=== PATIENT | female | born 2005 | race Caucasian/White ===

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

== ENCOUNTER 2023-03-30 05:51 | Emergency (ER) | payer BC, SELFPAY ==
[2023-03-30 05:51] VITALS: BP 141/83; PULSE 91; RESP 18; TEMP 35.8; O2SAT 97; BMI 42.1
[2023-03-30 06:24] LABS: Absolute Lymphocyte Count 3.92 X10^3/uL (0.83-4.51); Absolute Neutrophil Count 11.3 X10^3/uL (2.0-7.7); Basophil% 0.6 % (0-1); Eosinophil# 0.36 X10^3/uL; Eosinophils% 2.1 % (0-5); Hematocrit 41.5 % (37-47); Hemoglobin 13.5 g/dL (12.0-15.0); Lymphocyte # 3.92 X10^3/ul (0.83-4.51); Lymphocyte % 23.1 % (19-41); Mean Corp Hgb Conc 32.5 g/dL (32-36); Mean Corpuscular Hgb 28.5 pg (27.0-32.0); Mean Corpuscular Volume 87.7 fL (81-99); Mean Platelet Vol. 9.4 fl (6.2-12.0); Monocyte# 1.23 X10^3/uL; Monocyte% 7.2 % (0-10); NRBC Flagged by Analyzer 0 % (0-5); Neutrophil % 66.5 % (47-70); Platelet Count 425 K/mm3 (150-450); RBC Distribution Width CV 12.6 % (11.6-14.6); RBC Distribution Width SD 40.8 fl (35.1-43.9); Red Blood Count 4.73 M/mm3 (4.2-5.4)
[2023-03-30 06:25] LABS: Color, Urine Yellow (Yellow); Glucose, Dipstick Normal (Normal); Ketone-Dipstick 5 mg/dl (Negative); Leukocyte Esterase-Dipstick 500 /ul (Negative); Nitrite-Dipstick Negative (Negative); Occult Blood-Urine 25 /ul (Negative); Protein-Dipstick 30 mg/dl (Negative); Specific Gravity, Urine 1.025 (1.002-1.030); Urine Bilirubin Dipstick Negative (Negative); Urine Clarity Sl. Cloudy (Clear); Urine Urobilinogen Normal (Normal)
[2023-03-30 06:31] LABS: Internal QC Validated? YES +Cl - CLEAR BKGD; Pregnancy, Urine Negative Negative
[2023-03-30 06:33] LABS: Bacteria 4+ /hpf (None Seen); Mucous, Urine 1+ /hpf (<or=2+); Red Blood Cells-Urine 0-5 SEEN /hpf (0-5); Squamous Epithelial Cells - UA 10-25 SEEN /hpf (5-10); White Blood Cells 50-100 SEEN /hpf (0-5)
--- NOTE | 2023-03-30 06:44 | CT_ITS ---
EXAM: CT ABDOMEN AND PELVIS WITH INTRAVENOUS CONTRAST CLINICAL INDICATION: RLQ pain, prior cholecystectomy TECHNIQUE: Helically acquired images were obtained of the abdomen and pelvis with intravenous contrast. This CT exam was performed using one or more of the following dose reduction techniques: automated exposure control, adjustment of the mA and/or kV according to patient size, and/or use of iterative reconstruction technique. CONTRAST: IV 100mL [id number] RADIATION DOSE: Total DLP: 1196.91 mGy-cm. COMPARISON: Previous CT of 09/20/2021. FINDINGS: LOWER THORAX: Visualized lung bases are clear. No coronary artery calcification is visualized. No significant pericardial effusion. ABDOMEN: LIVER: Liver demonstrates mild fatty infiltration. Right hepatic lobe measures 18.7 cm in cephalocaudal dimension. GALLBLADDER AND BILE DUCTS: Previous cholecystectomy. No biliary ductal dilatation or calcified common duct stone. PANCREAS: Unremarkable. No focal cystic or solid mass. SPLEEN: Upper normal-sized spleen. ADRENALS: Unremarkable. No nodules. KIDNEYS AND URETERS: Lobulated renal cortical margins again noted. No renal or obstructing ureteral stones. No findings of acute pyelonephritis. STOMACH AND BOWEL: Stomach is decompressed. No periduodenal inflammatory changes or distended small bowel loops. No findings of diverticulitis or colitis. PELVIS: APPENDIX: Retrocecal. No evidence of acute appendicitis. BLADDER: Partially distended urinary bladder shows a mildly thickened wall. REPRODUCTIVE: Uterus remains normal in size. Within the right adnexal region is a 4.6 cm rounded thin-walled unilocular hypoattenuating lesion which shows CT attenuation of 25 in its dependent portion and CT attenuation of 5 within its nondependent portion, indicating blood layering within a hemorrhagic cyst. Normal left ovary. ABDOMEN and PELVIS: INTRAPERITONEAL SPACE: Small amount of low-density free fluid in the dependent portion of the pelvis. No active contrast extravasation. No adnexal fat stranding. No free air. BONES/JOINTS: Chronic pars defects again noted at L5, with slight stable anterolisthesis of L5 on S1; stable asymmetric narrowing of the inferior left L5/S1 neural foramen are broad-based foraminal disc protrusion. No suspicious lytic or blastic abnormality. SOFT TISSUES: Unremarkable. No discrete abdominal or pelvic wall hernia. VASCULATURE: Normal caliber abdominal aorta. LYMPH NODES: Stable normal sized mesenteric lymph nodes. No enlarged lymph nodes. CT/Abdomen/Pelvis W IV Cont ONLY IMPRESSION: 1. Normal appendix. No CT findings of acute appendicitis. 2. 4.6 cm minimally hemorrhagic right ovarian cyst with a small amount of associated free fluid within the pelvis, consistent with leakage from the cyst. 3. Mild thickening of the urinary bladder wall due to limited distention and/or cystitis. 4. Mildly enlarged and fatty liver. 5. Previous cholecystectomy. Electronically Signed: Francisco Butts MD at 7:22 EDT ,
--- NOTE | 2023-03-30 06:46 | EX.ED.DYSGE1 ---
HPI History of Present Illness Chief Complaint: Abd Pain Informant: patient Narrative Narrative: Presents waxing waning lower abdominal pain for the past week. States worsened this evening. Reports last menstrual period was earlier this month she had abnormal bleeding a week ago also when symptoms started. 2 days ago bleeding stopped and reported noting clots. She previous had Nexplanon removed 2020. She has been sexually active since January. Denies any urinary symptoms of dysuria or frequency. Denies any blood thinners. History of cholecystectomy in the past. Denies any allergies. Prior similar symptoms: No PFSH PFSH Home Medications ibuprofen 600 mg tablet 600 mg PO Q6H PRN PRN pain #20 TABLETS 03/30/23 [Rx Last Taken Unknown] ondansetron 4 mg disintegrating tablet 4 mg PO Q8H PRN PRN Nausea #10 tabs 03/30/23 [Rx Last Taken Unknown] Allergy/AdvReac Type Severity Reaction Status Date / Time No Known Allergies Allergy Verified 03/30/23 05:55 Surgical History History of cholecystectomy Social History Smoking Status: Never smoker ROS ROS ED Constitutional Constitutional ED: Denies chills, fever(s) or sweats Eyes Eyes: Denies change in vision ENT ENT ED: Denies dysphagia or sore throat Cardiovascular Cardiovascular: Denies chest pain, leg edema, palpitations or racing heartbeat Respiratory/Chest Respiratory/Chest: Denies cough, dyspnea or dyspnea on exertion Gastrointestinal Gastrointestinal: Reports abdominal pain; Denies diarrhea, nausea or vomiting Genitourinary Genitourinary ED: Reports other Details: Vaginal bleeding ; Denies dysuria, hematuria or urinary frequency Musculoskeletal Musculoskeletal: Denies back pain, extremity pain or neck pain Integumentary Denies rash or wounds Neurologic Neurologic: Denies headache(s), paresthesias or weakness EXAM Physical Exam Const Vital Signs: 03/30/23 05:51 Temperature 96.4 F L Temperature Source Temporal Pulse Rate 91 Respiratory Rate 18 Blood Pressure 141/83 H Blood Pressure Mean 102 Pulse Ox 97 Oxygen Delivery Method Room Air Positive well nourished and well developed General Appearance ED: well developed and NAD HEENT Reports moist mucous membranes normocephalic and atraumatic Eyes PERRL, EOMs intact bilaterally and conjunctivae normal General Eye ED: Yes normal appearance of both eyes Neck no lymphadenopathy and supple General: Negative for tenderness Chest Wall Chest: Negative for tenderness Resp normal respiratory effort and normal air movement Effort and Inspection: symmetric chest movement; Negative for respiratory distress Cardio regular rate, regular rhythm and no murmurs Peripheral Pulses: pulses 2+ throughout GI normal to inspection, nondistended, normoactive bowel sounds GI Narrative: Tenderness abdomen lower quadrants right greater than left. Palpation: Negative for guarding or rebound tenderness present Narrative: Pelvic exam with nursing present. Noted some excoriation right lateral lower pelvis there is no ulcerations. No external lesions. Speculum examination there is no cervical ulcers, there was no residual blood, there is no active bleeding. Back/Spine no CVA tenderness and no thoracic nor lumbar tenderness Extremity normal to inspection General Extremety ED: Negative for edema or tenderness General Extremity: Negative for edema Neuro oriented x3 and no sensory deficits noted Sensorium / Orientation: awake and alert Skin no rashes or lesions noted and no wounds MDM MDM MDM Narrative Medical decision making narrative: Interventions / MDM: Differential diagnosis: Dysfunctional uterine bleeding, ovarian cyst, appendicitis Diagnosis considered but do not suspect: N/A My EKG interpretation: N/A Imaging independently reviewed and interpreted by myself: CT abdomen pelvis IV contrast: Normal appendix, right ovarian cyst 4.6 cm concerning for hemorrhagic cyst per radiology. External documents reviewed: N/A Test considered but not ordered:N/A ED course: Patient initially reporting increasing vaginal bleeding lower abdominal pain. Laboratory studies were obtained with urine and test. Urine noted leukocytes white cells however also noted epithelials. Urine culture sent. Hold off antibiotics at this time as she is asymptomatic. Her white count did return 17 in her hemoglobin 13.5. Pelvic exam did not note any bleeding from any residual blood. Is more tender in the right lower quadrant/pelvic region. Due to leukocytosis will obtain a CT scan abdomen pelvis rule out appendicitis. Re-evaluation: 0700: CT scan normal appendix noted concerns for hemorrhagic cyst of 4.6 cm. Patient more comfortable sitting up. The size of the cyst, obtain ultrasound for further evaluation. She is not hypotensive, hemoglobin 13.5. Disposition discussed with patient/family/significant other: Patient Case discussed with consulting clinician: N/A Lab Data Attestation: I reviewed the patient's lab results. Labs: Laboratory Results - last 24 hr 03/30/23 03/30/23 03/30/23 06:14 06:14 06:14 WBC 17.0 H RBC 4.73 Hgb 13.5 Hct 41.5 MCV 87.7 MCH 28.5 MCHC 32.5 RDW Std Deviation 40.8 RDW Coeff of Beata 12.6 Plt Count 425 MPV 9.4 Immature Gran % (Auto) 0.500 Neut % (Auto) 66.5 Lymph % (Auto) 23.1 [place] % (Auto) 7.2 Eos % (Auto) 2.1 Baso % (Auto) 0.6 Absolute Neuts (auto) 11.3 H Absolute Lymphs (auto) 3.92 Nucleated RBC % 0 Sodium 141 Potassium 3.6 Chloride 109 H Carbon Dioxide 26.0 Anion Gap 6 BUN 12 Creatinine 0.68 Estim Creat Clear Calc 109.17 Est GFR (MDRD) Af Amer 142 Est GFR (MDRD) Non-Af 117 BUN/Creatinine Ratio 17.7 Glucose 107 H Calcium 8.9 Total Bilirubin Direct Bilirubin AST ALT Alkaline Phosphatase Total Protein Albumin Globulin Lipase Urine Color Yellow Urine Clarity Sl. Cloudy Urine pH 6.0 Ur Specific [place] 1.025 Urine Protein 30 H Urine Glucose (UA) Normal Urine Ketones 5 H Urine Occult Blood 25 H Urine Nitrite Negative Urine Bilirubin Negative Urine Urobilinogen Normal Ur Leukocyte Esterase 500 H Urine RBC 0-5 SEEN Urine WBC 50-100 SEEN Ur Squamous Epith Cells 10-25 SEEN Urine Bacteria 4+ Urine Mucus 1+ Urine Test Negative 03/30/23 03/30/23 06:14 06:14 WBC RBC Hgb Hct MCV MCH MCHC RDW Std Deviation RDW Coeff of Beata Plt Count MPV Immature Gran % (Auto) Neut % (Auto) Lymph % (Auto) [place] % (Auto) Eos % (Auto) Baso % (Auto) Absolute Neuts (auto) Absolute Lymphs (auto) Nucleated RBC % Sodium Potassium Chloride Carbon Dioxide Anion Gap BUN Creatinine Estim Creat Clear Calc Est GFR (MDRD) Af Amer Est GFR (MDRD) Non-Af BUN/Creatinine Ratio Glucose Calcium Total Bilirubin 0.40 Direct Bilirubin 0.13 AST 27 ALT 52 Alkaline Phosphatase 53 Total Protein 7.7 Albumin 3.7 Globulin 4.0 Lipase 19 Urine Color Urine Clarity Urine pH Ur Specific [place] Urine Protein Urine Glucose (UA) Urine Ketones Urine Occult Blood Urine Nitrite Urine Bilirubin Urine Urobilinogen Ur Leukocyte Esterase Urine RBC Urine WBC Ur Squamous Epith Cells Urine Bacteria Urine Mucus Urine Test Radiography Diagnostic Testing: Clinical Impression(s) from Imaging Studies Abdomen/Pelvis CT 03/30/23 06:44 IMPRESSION: 1. Normal appendix. No CT findings of acute appendicitis. 2. 4.6 cm minimally hemorrhagic right ovarian cyst with a small amount of associated free fluid within the pelvis, consistent with leakage from the cyst. 3. Mild thickening of the urinary bladder wall due to limited distention and/or cystitis. 4. Mildly enlarged and fatty liver. 5. Previous cholecystectomy. Electronically Signed: Francisco Butts MD at 7:22 EDT , Discharge Plan Triage Chief Complaint: Abd Pain ED Provider: Benjie Howell Dx/Rx/DC Orders Clinical Impression: Hemorrhagic cyst of right ovary, Pelvic pain, Nausea Instructions: ED Ovarian Cyst Prescriptions: New ibuprofen 600 mg tablet 600 mg PO Q6H PRN PRN (Reason: pain) Qty: 20 0RF ondansetron [ondansetron] 4 mg tablet,disintegrating 4 mg PO Q8H PRN PRN (Reason: Nausea) Qty: 10 0RF Primary Care Provider: Bradley Posada Referrals: Valentina Sales DO [Med Staff - Active Staff] - 3-5 Days Bradley Posada MD [Primary Care Provider] - Activity Restrictions/Additional Instructions: CT scan abdomen pelvis normal appendix notes a 4.6 cm hemorrhagic cyst. Ultrasound obtained.
[2023-03-30 06:48] LABS: Anion Gap 6 (5-15); BUN 12 mg/dL (7-18); BUN/Creat Ratio 17.7 RATIO (10-20); Calcium,Total 8.9 mg/dL (8.5-10.1); Chloride 109 mmol/L (98-107); Creatinine, Serum 0.68 mg/dL (0.55-1.02); EST Glomerular Filtration Rate 117 mL/min (>60); Est Glom Filt Rate - Afr Amer 142 mL/min (>60); Estimated Creatinine Clearance 109.17 ml/min; Glucose 107 mg/dL (74-106); Potassium 3.6 mmol/L (3.5-5.1); Sodium Level 141 mmol/L (136-145)
[2023-03-30 06:51] LABS: Lipase 19 U/L (13-75)
[2023-03-30] MEDS: Ondansetron 4 MG/2 ML Vial IV (06:52)
[2023-03-30] MEDS: 0.9% Normal Saline 1,000 ML 1000 ML IV (06:52)
[2023-03-30 06:57] LABS: AST(SGOT) 27 U/L (15-37); Alanine Aminotransfer ALT/SGPT 52 U/L (13-56); Albumin, Serum 3.7 g/dL (3.2-5.0); Alkaline Phosphatase 53 U/L (45-117); Bilirubin, Direct 0.13 mg/dL (0.00-0.30); Protein, Total 7.7 g/dL (6.4-8.2)
--- NOTE | 2023-03-30 07:28 | US_ITS ---
HISTORY: right pelvic pain -- 4.6cm cyst on CT. TECHNIQUE: Transvaginal pelvic ultrasound was performed with joyce scale , spectral Doppler, and color Doppler evaluation. 97 images. COMPARISON: CT same day. FINDINGS: UTERUS: 8.3 x 3.6 x 4.6 cm. Anteverted. ENDOMETRIAL THICKNESS: 5 mm. RIGHT OVARY: 4.2 x 6.1 x 5.7 cm. Vascular flow demonstrated. 3.9 x 5.1 x 4.4 cm unilocular appearing cyst. LEFT OVARY: 2.2 x 2.9 x 1.7 cm. Vascular flow demonstrated. No adnexal masses FREE FLUID: Mild. US/Transvaginal Non- IMPRESSION: 5.1 cm right ovarian cyst with mild free fluid in the pelvis. Consider 2-6 month follow-up. Electronically Signed: Jacinda Little MD at 8:24 EDT ,
[2023-03-30 07:51] VITALS: RESP 16
== END 2023-03-30 09:01 | disposition home or self-care (01) ==
PROVIDERS: Emergency Provider Emergency Medicine; PCP Pediatrics; Visit Provider Emergency Medicine
DX: N83.201 Unspecified ovarian cyst, right side (principal); R11.0 Nausea; Z90.49 Acquired absence of other specified parts of digestive tract; R10.2 Pelvic and perineal pain
CPT/HCPCS: 74177; 76830; 80048; 80076; 81001; 81025; 83690; 85025; 87086; 87088; 93976; 96361; 96374; 99282; J7030; Q9967; J2405

== ENCOUNTER 2023-12-28 20:48 | Emergency (ER) | payer BC, MEDICAID, SELFPAY ==
[2023-12-28 20:50] VITALS: BP 155/92; PULSE 86; RESP 18; TEMP 36.4; O2SAT 97; BMI 43.4
--- NOTE | 2023-12-28 21:01 | US_ITS ---
INDICATION: pelvic pain -- can you put in for doppler given hx of cyst EXAMINATION: Ultrasound US OB Transvaginal TECHNIQUE: Transvaginal pelvic ultrasound was performed. Grayscale, spectral waveform, and color flow Doppler evaluation of the adnexa. COMPARISON: None. LMP: [11/18/2023 correlating with 5 weeks 5 days gestation estimated delivery date August 24, 2024 FINDINGS: UTERUS: Anteverted 9.8 x 5.4 x 4.6 cm with normal myometrium. Cervix long and closed. . RIGHT OVARY: 6.1 x 5.3 x 5.8 cm with unilocular 5.5 cm cyst. Preserved surrounding ovarian parenchymal Doppler vascular flow.. . LEFT OVARY: 1.5 x 4.5 x 2.7 cm. Normal small follicles and preserved Doppler vascular flow. FREE FLUID: Small volume anechoic free fluid in the cul-de-sac.. INTRAUTERINE GESTATIONAL SAC(s) (size/shape): Single gestational sac at the uterine fundus with normal shape.. YOLK SAC: Single normal 2 mm yolk sac POLE: Not seen ESTIMATED GESTATION AGE: Mean sac diameter 0.53 cm correlating with 5 weeks 2 days gestation and estimated delivery date August 27, 2024. HEART MOTION: NA PLACENTA: Not visualized due to age. SUBCHORIONIC HEMORRHAGE: None. AMNIOTIC FLUID: Qualitatively normal. US/Transvaginal w/Preg US IMPRESSION: Single intrauterine with normal yolk sac. pole not yet seen compatible with early gestational age. Recommend repeat ultrasound in one to 2 weeks. Right ovarian 5.5 cm simple physiologic cyst with preserved ovarian Doppler vascular flow. Recommend attention to right ovary on ultrasound follow-up recommended above. Normal left ovary. Small volume likely physiologic free fluid in the pelvis. Electronically Signed: Wayne Rowley MD at 22:31 EST ,
--- NOTE | 2023-12-28 21:04 | ED.VIS.FEGU ---
HPI <BO Lee - Last Filed: 12/28/23 21:16> HPI - Female History of Present Illness Chief Complaint: Vag Bleeding Narrative Narrative: Patient presenting today due to concerns for vaginal spotting that occurred 2 days ago. She reports that she is 9 days late on her menstrual period. Today, she took 2 at home test that came back positive. She reports that she has had intermittent cramping lower abdominal pain today. She does have intermittent nausea. She is G2, P1. She denies any fevers or chills. PFSH <BO Lee - Last Filed: 12/28/23 21:16> PFSH Home Medications NK 12/28/23 [History Last Taken Unknown] Allergy/AdvReac Type Severity Reaction Status Date / Time No Known Allergies Allergy Verified 12/28/23 20:53 Surgical History History of cholecystectomy Social History Smoking Status: Never smoker ROS <BO Lee - Last Filed: 12/28/23 21:16> ROS ED Constitutional Constitutional ED: Denies chills or fever(s) Cardiovascular Cardiovascular: Denies chest pain Respiratory/Chest Respiratory/Chest: Denies cough or dyspnea Gastrointestinal Gastrointestinal: Reports abdominal pain and nausea; Denies vomiting Genitourinary Genitourinary ED: Denies dysuria, hematuria or urinary urgency Musculoskeletal Musculoskeletal: Denies arthralgias or myalgias Integumentary Denies rash Neurologic Neurologic: Denies weakness EXAM <BO Lee - Last Filed: 12/28/23 21:16> Physical Exam Const Vital Signs: 12/28/23 20:50 Temperature 97.6 F L Temperature Source Temporal Pulse Rate 86 Respiratory Rate 18 Blood Pressure 155/92 H Blood Pressure Mean 113 Pulse Ox 97 Oxygen Delivery Method Room Air Positive well nourished, well developed and no apparent distress General Appearance ED: well developed HEENT Reports normocephalic and head/scalp atraumatic Mouth ED: Yes moist mucous membranes normal Eyes PERRL and EOMs intact bilaterally Neck full ROM and supple Chest Wall inspection of chest normal Resp normal respiratory effort and clear to auscultation bilaterally Cardio regular rate and regular rhythm GI soft to palpation, non-distended and no masses GI Narrative: Diffuse tenderness across patient's lower abdomen/pelvis, no rigidity, guarding, or peritoneal signs. Back/Spine normal ROM and normal to inspection Extremity normal to inspection and full ROM Neuro oriented x3, CN's II-XII intact bilaterally, moves all extremities, no focal motor deficits and no sensory deficits noted Sensorium / Orientation: awake and alert Psych mental status grossly normal and thought process normal Skin no rashes or lesions noted and no wounds <Dr. Lukas Peña MD - Last Filed: 12/28/23 22:37> Physical Exam Const Vital Signs: 12/28/23 20:50 Temperature 97.6 F L Temperature Source Temporal Pulse Rate 86 Respiratory Rate 18 Blood Pressure 155/92 H Blood Pressure Mean 113 Pulse Ox 97 Oxygen Delivery Method Room Air MDM <BO Lee - Last Filed: 12/28/23 21:16> [facility] MDM Narrative Medical decision making narrative: Patient is nontoxic-appearing and in no acute distress, she is presenting due to lower abdominal/pelvic cramping that started today and vaginal spotting that started 2 days ago. She has not had any bleeding since. She did have 2 positive test today. She is . Labs will be obtained to assess serum hCG quant. She has a A+ blood type. Transvaginal ultrasound will be obtained to rule out miscarriage/ectopic . Lab Data Labs: Laboratory Results - last 24 hr 12/28/23 21:13 HCG, Quant 1460 H Radiography Diagnostic Testing: Clinical Impression(s) from Imaging Studies Obstetrics Ultrasound 12/28/23 21:01 IMPRESSION: Single intrauterine with normal yolk sac. pole not yet seen compatible with early gestational age. Recommend repeat ultrasound in one to 2 weeks. Right ovarian 5.5 cm simple physiologic cyst with preserved ovarian Doppler vascular flow. Recommend attention to right ovary on ultrasound follow-up recommended above. Normal left ovary. Small volume likely physiologic free fluid in the pelvis. Electronically Signed: Wayne Rowley MD at 22:31 EST Reading Location ID and State: [facility] [place] / [place] Tel , Service support , <Dr. Lukas Peña MD - Last Filed: 12/28/23 22:37> [facility] Narrative Medical decision making narrative: Patient is nontoxic-appearing and in no acute distress, she is presenting due to lower abdominal/pelvic cramping that started today and vaginal spotting that started 2 days ago. She has not had any bleeding since. She did have 2 positive test today. She is . Labs will be obtained to assess serum hCG quant. She has a A+ blood type. Transvaginal ultrasound will be obtained to rule out miscarriage/ectopic . I have personally performed a face to face assessment of the patient and have reviewed the JOSH Note. I performed a substantive portion of the visit including all aspects of the following. My ardon findings include: History is remarkable for spotting 2 days ago. Patient has a positive blood. This is her second . Patient had a positive test at home. She has a known right ovarian cyst. Ultrasound was performed March 2023 and cyst measured 5.1 cm. She is complaining of left sided pain. He has not bled since 2 days ago. She is complaining of pain similar to menstrual cramps. She denies dysuria, hematuria. She does endorse frequency. She denies vomiting or diarrhea. She denies orthostatic symptoms. She denies pain referred to her left or right scapula. Exam is unremarkable. Patient is no distress. Blood pressure is elevated. Lungs are clear to auscultation. Heart is regular. Rate is normal. There is no murmur, gallop or rub. Abdomen is remarkable for right inguinal discomfort. She has more discomfort on the left inguinal area. There is mild suprapubic discomfort. Medical Decision Making patient's blood type is known will obtain quantitative serum hCG and ultrasound to evaluate for ectopic , demise, ovarian torsion Other additions or changes: [None] Lab Data Labs: Laboratory Results - last 24 hr 12/28/23 21:13 HCG, Quant 1460 H Radiography Diagnostic Testing: Clinical Impression(s) from Imaging Studies Obstetrics Ultrasound 12/28/23 21:01 IMPRESSION: Single intrauterine with normal yolk sac. pole not yet seen compatible with early gestational age. Recommend repeat ultrasound in one to 2 weeks. Right ovarian 5.5 cm simple physiologic cyst with preserved ovarian Doppler vascular flow. Recommend attention to right ovary on ultrasound follow-up recommended above. Normal left ovary. Small volume likely physiologic free fluid in the pelvis. Electronically Signed: Wayne Rowley MD at 22:31 EST , Radiology report was read. Treatment and Re-Evaluation Narrative: Patient was informed of her blood work and ultrasound results. She states was a patient of Dr. Brown's. Franc Brown delivered her first child. She would like to follow-up with her. Discharge Plan Triage Chief Complaint: Vag Bleeding ED Midlevel Provider: Jen Pa ED Provider: Lukas Peña Dx/Rx/DC Orders Clinical Impression: First trimester bleeding, Cyst of right ovary Instructions: Ovarian Cysts, Miscarriage Threatened Prescriptions: No Action NK Primary Care Provider: Bradley Posada Referrals: Valentina Sales DO [Med Staff - Active Staff] - 1 Week Bradley Posada MD [Primary Care Provider] - Disposition Disposition: Home, Self Care
--- OUTSIDE RECORDS SUMMARY | 2023-12-28 21:13 | XMS RPT_ITS | CCD ---
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 DUSTY Taylor Primary Care Unavail able DUSTY GALEANO Primary Care Unavailable REFERRED, SELF Referring Unavailable ALYSSA PAULINO Attending Unavailable Medications Current Medications Medication Drug Class(es) Dates Sig (Normalized) Sig (Original) etonogestrel 68 mg drug implant (1 source) Progestin Start: 11-05-2018 inject 1 dose by subcutaneous injection once Nexplanon 68 mg subcutaneous implant Dose : 68 mg = 1 EA, Subcutaneous, Once, 0 Refill(s) Start Date: 11/05/18 Status: Ordered metoclopramide 5 mg oral tablet (1 source) Dopamine-2 Receptor Antagonist Start: 10-25-2022 End: 11-08-2022 Reglan 5 mg oral tablet Dose : 5 mg = 1 tab(s), Oral, QID, X 14 day(s), # 56 tab(s), 0 Refill(s), 11/08/22 20:52:00 EST Start Date: 10/25/22 Stop Date: 11/08/22 Status: Ordered promethazine hydrochloride 25 mg oral tablet (1 source) Phenothiazine Start: 10-09-2019 promethazine 25 mg oral tablet Dose : 25 mg = 1 tab(s), Oral, q4h, # 12 tab(s), 0 Refill(s), Vertigo Start Date: 10/09/19 Status: Ordered SUMAtriptan 50 mg oral tablet (1 source) Serotonin-1b and Serotonin-1d Receptor Agonist Start: 10-09-2019 SUMAtriptan 50 mg oral tablet Dose : 50 mg = 1 tab(s), take 1 tablet by mouth if needed AT ONSET OF HEADACHE may repeat in 2 hours if needed Start Date: 10/09/19 Status: Ordered Completed/Discontinued Medications Medication Drug Class(es) Dates Sig (Normalized) Sig (Original) ondansetron 4 mg oral tablet (1 source) Serotonin-3 Receptor Antagonist Start: 11-05-2018 End: 11-10-2018 Zofran 4 mg oral tablet Dose : 4 mg = 1 tab(s), Oral, q8h, # 15 tab(s), 0 Refill(s) Start Date: 11/05/18 Stop Date: 11/10/18 Status: Ordered Problems Active Problems Problem Classification Problem Date Documented Da te Episodic/Chronic Other gastrointestinal disorders (1 source) Disorder of intestine; Translations: [Other specified diseases of intestine] Onset: 10-25-2022 Episodic Past or Other Problems Problem Classification Problem Date Documented Da te Episodic/Chronic Viral infection (1 source) Disease caused by 2019-nCoV; Translations: [COVID-19] Onset: 10-25-2022 Results Test Name Value Interpretation Reference Range Facil ity Vital Signs Date Time Vital Sign Value Performing Clinician Faci lity 10-25-2022 21:01-0500 Diastolic Blood Pressure Non-Invasive 75 1 CLARE LIZ MD [facility] 10-25-2022 21:01-0500 Heart rate 85 /min CLARE LIZ MD [facility] 10-25-2022 21:01-0500 Respiratory rate 18 /min CLARE LIZ MD [facility] 10-25-2022 21:01-0500 Systolic Blood Pressure Non-Invasive 127 1 CLARE LIZ MD [facility] 10-25-2022 18:10-0500 Diastolic Blood Pressure Non-Invasive 68 1 CLARE LIZ MD [facility] 10-25-2022 18:10-0500 Heart rate 95 /min CLARE LIZ MD [facility] 10-25-2022 18:10-0500 Respiratory rate 11 /min CLARE LIZ MD [facility] 10-25-2022 18:10-0500 Systolic Blood Pressure Non-Invasive 140 1 CLARE LIZ MD [facility] 10-25-2022 16:12-0500 Diastolic Blood Pressure Non-Invasive 75 1 CLARE LIZ MD [facility] 10-25-2022 16:12-0500 Heart rate 79 /min CLARE LIZ MD [facility] 10-25-2022 16:12-0500 Respiratory rate 12 /min CLARE LIZ MD [facility] 10-25-2022 16:12-0500 Systolic Blood Pressure Non-Invasive 127 1 CLARE LIZ MD [facility] 10-25-2022 14:48-0500 Blood Pressure Location CLARE LIZ MD [facility] 10-25-2022 14:48-0500 Blood Pressure Method CLARE LIZ MD [facility] 10-25-2022 14:48-0500 Body temperature 96.8 [degF] CLARE LIZ MD [facility] Encounters Encounter Date Encounter Type Care Provider Facility Start: 11-09-2023 End: 11-09-2023 ambulatory [facility] Start: 10-25-2022 End: 10-25-2022 Emergency department patient visit CLARE LIZ MD Facility:B Start: 10-25-2022 End: 10-25-2022 Emergency department patient visit CLARE LIZ MD [facility] Start: 03-14-2018 End: 03-15-2018 Ambulatory [facility] Procedures Date Procedure Procedure Detail Performing Clinician Cholecystectomy CLARE Stokes MD Payers Date Payer Category Payer Unknown [id number] 2003 Unknown [id number] 2003 Unknown [id number] Unknown [id number] Social History Date Type Detail Facility Start: 10-09-2019 Tobacco smoking status Never s moked tobacco (finding) [facility] Sex Assigned At Sex [facility] Functional Status Date Assessment Result Facility 10-25-2022 Functional Status Standard Safet y Call device within reach, Bed in low position, Wheels locked, Safety level maintained [facility] 10-25-2022 Functional Status [facility] Mental Status Date Assessment Result [facility] 10-25-2022 Mental Status Orientation Oriented x 4 [facility] Discharge instructions 10-25-2022 Note Date & Type Note Facility 10-25-2022 Hospital Discharg e instructions Patient Education 10/25/2022 20:52:41 Anatomy of the Digestive System Anatomy of the Digestive System Food gives the body the energy needed for life. The digestive system breaks food down into basic nutrients that can be used by the body. The digestive tract is a long, muscular tube that extends from the mouth through the stomach and intestines to the anus. As food moves along the digestive tract, it is digested. This means it is changed into substances that can be absorbed into the bloodstream. Certain organs (such as the liver, gallbladder, and pancreas) help with this digestion. Parts of food that can't be digested are turned into stool. This is waste material that is passed out of the body. Digestive system The digestive system is made up of the following: The mouth. Takes in food, breaks it into pieces, and begins the digestion process. The esophagus. Moves food from the mouth to the stomach. Thestomach. Breaks food down into a liquid mixture. Theliver. Makes bile that helps digest fat. The gallbladder. Stores bile. Thepancreas. Makes enzymes that help in digestion. Thesmall intestine. Digests food further and absorbs nutrients. What is left is passed on to the colon as liquid waste. The large intestine (colon). Absorbs water, salt, and minerals from the waste, forming a solid stool. The rectum. Stores stool until a bowel movement happens. Theanus. The opening where stool leaves the body. [id number] [place] [address]. All rights reserved. This information is not intended as a substitute for professional medical care. Always follow your healthcare professional's instructions. Follow Up Care 10/25/2022 14:26:13 With:DUSTY GALEANO MD Address: [address] [place] [address] [address] [place] [address]- When:2-4 days [facility] Clinical Note 10-25-2022 Note Date & Type Note Facility 10-25-2022 Note Discharge Instructions Thank you for allowing [facility] to assist you with your healthcare needs. The following is important discharge information regarding your hospital visit. Diagnosis from Today's Visit Abdominal pain COVID-19 Epiploic appendagitis Dizziness Urinary Incontinence Vomiting What to Do Next Instructions from Your Care Team No qualifying data available. Post Acute Orders No qualifying data available. You Need to Schedule the Following Appointments Follow Up with DUSTY GALEANO MD When Within 2-4 days [facility] [address] [facility] [address] [place] [address]- Allergies NKA Medications Please ask your primary doctor or pharmacist before taking any other medication not listed, including over the counter drugs, herbal medications, vitamins and or supplements as they may interact with your home medications. What How Much When Why Instructions Last Dose New metoclopramide (Reglan 5 mg oral tablet) 1 tab(s) by mouth Four (4) times a day Duration: 14 Days Printed Prescription Unchanged etonogestrel (Nexplanon 68 mg subcutaneous implant) 1 Each Subcutaneous Once Unchanged ondansetron (Zofran 4 mg oral tablet) 1 tab(s) by mouth Every 8 hours Duration: 5 Days Unchanged promethazine (promethazine 25 mg oral tablet) 1 tab(s) by mouth Every 4 hours Vertigo Unchanged SUMAtriptan (SUMAtriptan 50 mg oral tablet) 1 tab(s) take 1 tablet by mouth if needed AT ONSET OF HEADACHE may repeat in 2 hours if needed Please take this list to your next doctor s visit. Bring all medications you take, including over the counter medications, herbals and other supplements with you to your doctor s visit. Patients and families are reminded to discard old lists and to update any records with all medication providers or retail pharmacies. Education Materials Anatomy of the Digestive System Food gives the body the energy needed for life. The digestive system breaks food down into basic nutrients that can be used by the body. The digestive tract is a long, muscular tube that extends from the mouth through the stomach and intestines to the anus. As food moves along the digestive tract, it is digested. This means it is changed into substances that can be absorbed into the bloodstream. Certain organs (such as the liver, gallbladder, and pancreas) help with this digestion. Parts of food that can't be digested are turned into stool. This is waste material that is passed out of the body. Digestive system The digestive system is made up of the following: The mouth. Takes in food, breaks it into pieces, and begins the digestion process. The esophagus. Moves food from the mouth to the stomach. Thestomach. Breaks food down into a liquid mixture. Theliver. Makes bile that helps digest fat. The gallbladder. Stores bile. Thepancreas. Makes enzymes that help in digestion. Thesmall intestine. Digests food further and absorbs nutrients. What is left is passed on to the colon as liquid waste. The large intestine (colon). Absorbs water, salt, and minerals from the waste, forming a solid stool. The rectum. Stores stool until a bowel movement happens. Theanus. The opening where stool leaves the body. [id number] [employer] [place] [address], [place] [address]. All rights reserved. This information is not intended as a substitute for professional medical care. Always follow your healthcare professional's instructions. Additional Information VACCINATE! IT SAVES LIVES! Members of the community who have not yet received the COVID-19 vaccine and would like to receive it can visit one of [facility] vaccine clinics. There are many vaccine clinic locations within the [facility]. For locations and available times, please visit [email or web address]. It is important to note that some COVID mobile vaccine clinics are held outdoors and may be canceled in rainy or stormy conditions. To learn more about pediatric vaccinations (ages 5-11), we invite you to visit the [facility] webpage. [email or web address] To learn more about the COVID-19 vaccine, we invite you to visit the [facility] website for a list of frequently asked questions. [email or web address] [facility] Patient Portal Access Instructions: Stay connected with your healthcare team and access your personal medical information anytime with the [facility] Patient Portal. If you would like a full copy of your medical records please contact the [facility] Medical Records Department Monday through Monday between 8a.m. and 4:30p.m. Please follow the directions below to access the portal: 1.Access the email account you provided upon registration to the hospital.2.Look for an invitation email from [facility].3.Open the email and access the invitation link: Accept Invitation to [facility]4.Fill in the required donahue to create your account. Sign into [email or web address] with your username and password that you created in the above steps to stay up to date. You can then view a summary of results, a summary of your visits, and the ability to download your summaries to your computer or send the information securely to a physician. Remember that your healthcare information is confidential, so carefully consider who you will allow to register on the [facility] Patient Portal for access to your information. You can also access the [facility] Patient Portal on the [employer] katina. Simply click on Health Records under Health Data and then click on the [email or web address] logo. HOW TO SAFELY DISPOSE OF PRESCRIPTION MEDICATIONS Please use one of the following methods to safely dispose of your unused medications. 1.Use a drug disposal kit: the drug disposal pouch allows you to safely discard your old and unused drugs. Ask your nurse to give you one when you are discharged.2.Visit a local take-back location: Many local pharmacies and police departments have programs that collect old and unwanted prescription drugs. Call your local pharmacy or go to http://[employer].Zoomy/8P0Cy4t to find one close to you.3.Make use of household items: Use cat litter or old coffee grounds to dispose medications if other options are not available. Mix your drugs with these household products, seal them in an airtight container and throw it into the garbage. Call [facility]: [phone] to be sure your drugs can be disposed of in this way. Some medicines may require a different approach.4.Never flush your medications down the toilet. IF YOU HAVE BEEN PRESCRIBED AN OPIOIDS FOR PAIN If you have been prescribed an opioid (such as hydrocodone, oxycodone or morphine), it is critical to understand the possible side effects and risks of opioid pain medications. Even when taken as directed, opioids can have several side effects including: Tolerance, meaning you might need to take more of a medication for the same pain relief. Nausea, vomiting and/or constipation. Sleepiness, dizziness, dry mouth, confusion, depression or itching. Physical dependence, meaning you have withdrawal symptoms when a medication is stopped ? this can develop within a few days. KNOW YOUR RESPONSIBILITIES It is important to know exactly how much and how often to take the opioid pain medications you are prescribed. Never take opioids in higher amounts or more often than prescribed. Do not combine opioids with alcohol or other drugs that cause drowsiness, such as benzodiazepines, also known as benzos, including diazepam and alprazolam, muscle relaxants or sleep aids. Never sell or share prescription opioids. This is illegal. Store opioids in a secure place and out of reach of others (including children, family, friends and visitors). The last page(s) of this document has been signed and retained as a CHART COPY Signatures Patient Education Materials Anatomy of the Digestive System Medication Leaflets My discharge plan and instructions have been reviewed and explained to me and I,MILADYS HEARN M understand my current condition and have read and understand these discharge instructions. I have received a written copy of the plan/instructions. If I have questions, I am aware that I should contact my doctor. 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 Multiplanar reformatted images are provided for review. Automated exposure control, iterative reconstruction, and/or weight based adjustment of the mA/kV was utilized to reduce the radiation dose to as low as reasonably achievable. COMPARISON: None. HISTORY: ORDERING SYSTEM PROVIDED HISTORY: Reason for Exam: pain, N/V FINDINGS: The lung bases are unremarkable. The heart is normal in size. The liver, spleen, adrenal glands, and pancreas are unremarkable. Prior cholecystectomy. The extrahepatic common bile duct measures 0.9 cm. Suspect lobulation of the bilateral kidneys. No obstructive uropathy. The ureters and bladder are unremarkable. Nondilated loops of small bowel. There is a small fat density measuring 2.0 cm with surrounding inflammation at the splenic flexure. A normal appendix is identified. There is a 4.5 cm right adnexal cyst with a mean density of 1 Hounsfield units. No free intraperitoneal fluid or gas. No lymphadenopathy is identified. Nonaneurysmal abdominal aorta. No acute osseous abnormality. Bilateral pars defects which appear chronic are present at L5. IMPRESSION: Findings most consistent with epiploic appendagitis adjacent to the splenic flexure. Prominence of the extrahepatic common bile duct measuring up to 0.9 cm may relate to post cholecystectomy dilatation. Recommend correlation with alkaline phosphatase. 4.5 cm simple right adnexal cyst. No further follow-up imaging is recommended. I have personally reviewed the images of this examination and agree with the resident's findings and interpretation. RECOMMENDATIONS: 4.5 cm right adnexal simple-appearing cyst. No follow-up imaging is recommended. Reference: JACR 2019;17(2):248-254 Interpreted by: Abner Rosa MD Preliminary Report By: Armida Frank Electronically signed By Abner Rosa MD Dictated Date: 10/25/2022 8:24:04 PM Prelim Date: 10/25/2022 8:31:30 PM Sign Date: 10/25/2022 8:41:17 PM Ordering Provider: [facility] Clinical Note 10-25-2022 Note Date & Type Note Facility 10-25-2022 Note ORIGINAL EXAMINATION: CT OF THE ABDOMEN AND PELVIS WITH CONTRAST 10/25/2022 8:06 pm TECHNIQUE: CT of the abdomen and pelvis was performed with the administration of intravenous contrast. Multiplanar reformatted images are provided for review. Automated exposure control, iterative reconstruction, and/or weight based adjustment of the mA/kV was utilized to reduce the radiation dose to as low as reasonably achievable. COMPARISON: None. HISTORY: ORDERING SYSTEM PROVIDED HISTORY: Reason for Exam: pain, N/V FINDINGS: The lung bases are unremarkable. The heart is normal in size. The liver, spleen, adrenal glands, and pancreas are unremarkable. Prior cholecystectomy. The extrahepatic common bile duct measures 0.9 cm. Suspect lobulation of the bilateral kidneys. No obstructive uropathy. The ureters and bladder are unremarkable. Nondilated loops of small bowel. There is a small fat density measuring 2.0 cm with surrounding inflammation at the splenic flexure. A normal appendix is identified. There is a 4.5 cm right adnexal cyst with a mean density of 1 Hounsfield units. No free intraperitoneal fluid or gas. No lymphadenopathy is identified. Nonaneurysmal abdominal aorta. No acute osseous abnormality. Bilateral pars defects which appear chronic are present at L5. IMPRESSION: Findings most consistent with epiploic appendagitis adjacent to the splenic flexure. Prominence of the extrahepatic common bile duct measuring up to 0.9 cm may relate to post cholecystectomy dilatation. Recommend correlation with alkaline phosphatase. 4.5 cm simple right adnexal cyst. No further follow-up imaging is recommended. I have personally reviewed the images of this examination and agree with the resident's findings and interpretation. RECOMMENDATIONS: 4.5 cm right adnexal simple-appearing cyst. No follow-up imaging is recommended. Reference: JACR 2019;17(2):[id number] Interpreted by: Abner Rosa MD Preliminary Report By: Armida Frank Electronically signed By Abner Rosa MD Dictated Date: 10/25/2022 8:24:04 PM Prelim Date: 10/25/2022 8:31:30 PM Sign Date: 10/25/2022 8:41:17 PM Ordering Provider: [facility] SARS-CoV-2 (COVID-19) RNA LILIA+probe Ql (Nph) 10-25-2022 Note Date & Type Note Facility 10-25-2022 SARS-CoV-2 (COVID -19) RNA LILIA+probe Ql (Nph) Positive *ABN* (10/25/22 3:28 PM) AO Auto Urine SS Progress note 11-16-2021 Note Date & Type Note Facility 11-16-2021 Note HNO ID: [id number] Author: Jazmín Sales APRN.[employer] Service: ? Author Type: Nurse Practitioner Type: Progress Notes Filed: 11/16/2021 1:07 PM Note Text: CHIEF COMPLAINT: Patient presents with: bloody stools: Seen at [facility] ER Constipation: about 1-2 times month with pain in rectum and lower abdomen/back Diarrhea: having watery stools 2-3 times daily GERD This consult was requested by Malini La MD for an opinion regarding blood in stool. My final recommendations will be communicated to the requesting health care provider by way of the shared medical record for internal providers or letter via the [employer] for external providers. 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 Herpast medical history complication to anesthesia (vomiting after surgery), and depression. Gall bladder removed who presents for blood in stool HPI: Recent visit to [facility] ED 09/20-for intermittent abdominal pain, nausea and vomiting CT scan showed ovarian cyst 2.5 cm was treated with Zofran, Reglan and Benadryl and GI cocktail. Lab work shows chronically elevated WBC it was reported has been ongoing since 2017 and was started on Prevacid given Zofran prescription and to follow-up with OB, PCP and possibly hematology regarding chronically elevated WBC. The patient reports change in bowel habits starting in Nov of diarrhea and rectal bleeding and abdominal pain in her lower stomach and RLQ. Having a bowel movement reports alternating bowel movements from constipation to watery bowel movements. She reports mostly watery or loose BM daily. She reports she having a BM once in the morning it wakes her up and then will have 2 more BM that dayShe reports she is having burning sensation when she has a BM . She reports stabbing pain that intermittent - and this will take her breath away and will last 3 minutes this just makes her want to throw up. She reports she is having bad acid reflux burning sensation in her throat and chest. At times regurgitation of food and will having belching up rotten eggs at one point. She reports her stomach gets hard. Her symptoms worsen when she lays down and gets nauseated never vomits currently and this will make her dizzy. She reports she does not eat a lot and feeling full fast. She reports she feels nauseated in the morning when she wakes up that she starving. Record Review: [facility] / Outside records reviewed. CT ABD and PEL 09/20/2021 IMPRESSION: Right ovarian 2.3 cm cyst. This is recurrent or increased in size from 2.8 cm February 17, 2020. Ultrasound characterization is recommended. Moderate colonic stool. Well filled bladder. Correlate for ablity to void. Bilateral pars defects L5 with trace grade 1 anterolisthesis of L5 on S1. Uncovering of the posterior superior disc with small disc extrusion. There is mild left neuroforaminal stenosis with disc approaching the exiting L5 nerve root. MRI could further evaluate as clinically indicated. Individualized dose optimization techniques were used for this CT. PAST MEDICAL HISTORY Diagnosis Date - Complication of anesthesia vomiting after surgery - Depression PAST SURGICAL HISTORY Procedure Laterality Date - LAPAROSCOPIC CHOLEYCYSTECTOMY 11/06/2014 Cholecystectomy, lap - NEXPLANON INSERTION 03/27/2017 Allergies: ALLERGIES No Known Allergies Medications: ondansetron orally disintegrating (ZOFRAN ODT) 4 mg disintegrating tablet dissolve 1 tablet ON TONGUE every 8 hours if needed for nausea norgestimate 0.25 mg-ethinyl estradiol 35 mcg (SPRINTEC) 0.25-35 mg-mcg per tablet Take 1 tablet by mouth once daily. pantoprazole DR (PROTONIX) 40 mg tablet Take 1 tablet by mouth once daily. FAMILY HISTORY Problem Relation Age of Onset - Hypertension Father - Hypertension Maternal Grandmother - Breast Cancer Maternal Aunt - Diabetes Paternal Grandfather - Prostate Cancer Paternal Grandfather - Psychiatry Maternal Uncle - Psychiatry Maternal Aunt - Psychiatry Maternal Aunt - Seizures Maternal Aunt Employer And Job Title: No employer specified (student) Years Of Education Completed: 7 years Marital Status: Single Social History Tobacco Use - Smoking status: Never Smoker - Smokeless tobacco: Never Used Vaping Use - Vaping Use: Never used Substance Use Topics - Alcohol use: No - Drug use: No Review of Systems: Review of Systems Constitutional: Positive for appetite change. Gastrointestinal: Positive for abdominal distention, abdominal pain, anal bleeding, blood in stool, constipation, diarrhea, nausea and rectal pain. All other systems reviewed and are negative. Are you taking any blood thinners? No Physical Examination: BP 124/66 Pulse 74 Ht 5' 5.748 (1.67m) Wt 259 lb (117.5kg) SpO2 99% LMP 10/27/2021 BMI 42.12 kg/(m2). Physical Exam Abdominal: Tenderness: There is abdominal tenderness in the right upper quadrant (more content not included)... [facility] Progress note 10-08-2021 Note Date & Type Note Facility 10-08-2021 Note HNO ID: [id number] Author: Malini La MD Service: ? Author Type: Physician Type: Progress Notes Filed: 10/08/2021 1:15 PM Note Text: Miladys Hearn is a 16 year old female who presents for problem visit for c/o nausea and abdominal pain. HPI: 16 YOF had N/V on 09/20 and went to [facility] ED. Given zofran. Had a CT and showed ovarian cyst (2.5cm) so told to follow up here. Gets nausea daily, usually takes zofran daily. Goes from constipation to watery stools. No new medications. States the zofran usually helps the nausea some. No change in diet. Notes she has had some bright red blood w/ stools, both w/ loose and constipation. 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 OB History T1 L1 SAB0 IAB0 Ectopic0 Multiple0 Live Births1 Edge Setter History LMP: 03/14/2018, Having periods Age at Menarche: Age at First : Age at Menopause: Edge Setter History Comments: Sexual Activity: No sexual activity data on record; No partner data on record Contraception: No contraception data on record PAST MEDICAL HISTORY Diagnosis Date - Complication of anesthesia vomiting after surgery - Depression PAST SURGICAL HISTORY Procedure Laterality Date - LAPAROSCOPIC CHOLEYCYSTECTOMY 11/06/2014 Cholecystectomy, lap - NEXPLANON INSERTION 03/27/2017 FAMILY HISTORY Problem Relation Age of Onset - Hypertension Father - Hypertension Maternal Grandmother - Breast Cancer Maternal Aunt - Diabetes Paternal Grandfather - Prostate Cancer Paternal Grandfather - Psychiatry Maternal Uncle - Psychiatry Maternal Aunt - Psychiatry Maternal Aunt - Seizures Maternal Aunt Social History Tobacco Use - Smoking status: Never Smoker - Smokeless tobacco: Never Used Vaping Use - Vaping Use: Never used Substance Use Topics - Alcohol use: No - Drug use: No Current Outpatient Medications Medication Sig - ondansetron orally disintegrating (ZOFRAN ODT) 4 mg disintegrating tablet dissolve 1 tablet ON TONGUE every 8 hours if needed for nausea - norgestimate 0.25 mg-ethinyl estradiol 35 mcg (SPRINTEC) 0.25-35 mg-mcg per tablet Take 1 tablet by mouth once daily. - etonogestrel (NEXPLANON) subdermal implant 68 mg 68 mg by SUBDERMAL route one time only. (Patient not taking: Reported on 10/08/2021 ) No current facility-administered medications for this visit. Allergies As of Date: 10/08/2021 (No Known Allergies) Fully Assessed 10/08/2021 REVIEW OF SYSTEMS Bladder: No dysuria, gross hematuria, urinary frequency, urinary urgency, or incontinence. Allergies and current medication updated:Yes EXAM: LMP 03/14/2018 GENERAL: pleasant, female in no apparent distress Reviewed CT and labs from [facility] from 09/2021 ED visit. ASSESSMENT AND PLAN: contraceptive surveillance, doing well on OCPS, desries to continue w/ this. Small 2.5 cm ovarian follicle, d/w her natural h/o follicles, etiology for cysts and how they cause pain. Her symptoms are not c/w ovarian cyst,. Nausea and hematochezia- Needs GI referal. Medical Decision Making: Problems: Moderate: New problem with uncertain prognosis Data: Unique test result(s) reviewed: 3+ Risk: Moderate: Moderate risk from testing/treatment Medical Decision Making Level: 4 - Moderate Malini La MD [facility] Progress note 01-26-2021 Note Date & Type Note Facility 01-26-2021 Note HNO ID: [id number] Author: Malini La Service: ? Author Type: ? Type: Progress Notes Filed: 01/26/2021 10:36 AM Note Text: Miladys Hearn is a 16 year old female who presents for problem visit for discussion of contraception. HPI: 16 YOF had nexplanon for almost 4 years. Had light bleeding before and was very happy w/ nexplanon. Now more irreg bleedign and cramps. Considering another one but wants to be off it for a few months. PAST MEDICAL HISTORY Diagnosis Date - Complication of anesthesia vomiting after surgery - Depression PAST SURGICAL HISTORY Procedure Laterality Date - LAPAROSCOPIC CHOLEYCYSTECTOMY 2014 Cholecystectomy, lap FAMILY HISTORY Problem Relation Age of Onset - Hypertension Father - Hypertension Maternal Grandmother - Breast Cancer Maternal Aunt - Diabetes Paternal Grandfather - Prostate Cancer Paternal Grandfather - Psychiatry Maternal Uncle - Psychiatry Maternal Aunt - Psychiatry Maternal Aunt - Seizures Maternal Aunt Social History Tobacco Use - Smoking status: Former Smoker Quit date: 05/26/2016 Years since quittin.6 - Smokeless tobacco: Never Used Substance Use Topics - Alcohol use: No - Drug use: No Current Outpatient Medications Medication Sig - etonogestrel (NEXPLANON) subdermal implant 68 mg 68 mg by SUBDERMAL route one time only. - ondansetron (ZOFRAN) 4 mg tablet Take 1 tablet by mouth every 8 hours as needed for Nausea/Vomiting. (Patient not taking: Reported on 01/26/2021 ) - Ukgvcwrb-Le-Rav-Fe-FA ( VITAMIN) tab Take 1 tablet by mouth. (Patient not taking: Reported on 01/26/2021 ) No current facility-administered medications for this visit. Allergies As of Date: 01/26/2021 (No Known Allergies) Fully Assessed 01/26/2021 REVIEW OF SYSTEMS Allergies and current medication updated:Yes EXAM: LMP 04/30/2016 GENERAL: pleasant, female in no apparent distress ASSESSMENT AND PLAN: contraceptive counseling. Desires LARC. Info on Innovera and nexplanon and IUDs reviewed. Considering. Would like pills for 1-2 cyclkes to regulate menses for now. Schedule annual Malini La MD Miladys is a 16 year old who presents for Nexplanon removal for scheduled 3 year removal. 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 Time: 1032 Affirmation of Time Out: YES Sign Out Discussion: Completed Malini aL MD TECHNIQUE: Patient placed in supine position with left arm bent at the elbow and placed over the head. Skin cleansed with betadine. 0.2mL of 1% lidocaine with epi injected subQ along insertion site. Scalpel used to made a 5mm stab incision superficially at distal end of Nexplanon. Device removed under sterile technique with a small hemostat. Sterile pressure dressing applied. AANDP: 16 year old here for Nexplanon removal Nexplanon removed intact without difficulty. Malini La MD [facility] Evaluation + Plan note Note Date & Type Note Facility Evaluation + Plan note No data available for this section [facility] Summary Purpose Family History No Family History Records FoundNo Family History Records FoundNo Family History Records FoundNo Family History Records Found Advance Directives No Advanced Directives Records FoundNo Advanced Directives Records FoundNo Advanced Directives Records FoundNo Advanced Directives Records Found Additional Source Comments INFORMATION SOURCE (unrecogn ized section and content) DATE CREATED AUTHOR AUTHOR'S ORGANIZ ATION 11/23/2021 [facility] DATE CREATED AUTHOR AUTHOR'S ORGANIZ ATION 11/21/2022 [facility] ([place]) DATE CREATED AUTHOR AUTHOR'S ORGANIZ ATION 11/10/2023 [facility] Care Team (unrecognized sect ion and content) Care Team Personnel Name: DUSTY GALEANO MD Member Role: Primary Care Physician Address: Address: [address] [place] [address] [address] Name: CLARE LIZ MD Position: ED Physician Member Role: ED Physician Address: Address: [address] [facility] [address] [address] [place] [address]- [place] Name: SHRUTI LEONE DO Position: Resident Member Role: Resident Address: Address: [address] [facility] [place] [address]- Name: Sandra Hassan RN Position: AO RN Member Role: ED RN Care Team Related Persons Name: BLAIRE HEARN Address: Home [address] [place] [id number] Name: SUSI HEARN Address: Home [address] [address] FOR RECORDS PERTAINING TO PATIENTS WHO ARE OR HAVE BEEN ENROLLED IN A CHEMICAL DEPENDENCY/SUBSTANCEABUSE PROGRAM, SOME INFORMATION MAY BE OMITTED. This clinical summary was aggregated from multiple sources. Caution should be exercised in using it in the provision of clinical care. This summary normalizes information from multiple sources, and as a consequence, information in this document may materially change the coding, format and clinical context of patient data. In addition, data may be omitted in some cases. CLINICAL DECISIONS SHOULD BE BASED ON THE PRIMARY CLINICAL RECORDS. [facility] [employer] [facility] provides no warranty or guarantee of the accuracy or completeness of information in this document.
[2023-12-28 22:01] LABS: hCG Titer Quant., Serum 1460 mIU/mL (1-3)
[2023-12-28 22:49] VITALS: O2SAT 98
[2023-12-28 22:50] VITALS: BP 138/74; PULSE 81; RESP 16; TEMP 36.6; O2SAT 99
== END 2023-12-28 22:51 | disposition home or self-care (01) ==
PROVIDERS: Physician Assistant; Emergency Provider Emergency Medicine; PCP Pediatrics; Visit Provider Emergency Medicine
DX: O20.9 Hemorrhage in early pregnancy, unspecified (principal); O99.891 Other specified diseases and conditions complicating pregnancy; N83.291 Other ovarian cyst, right side; Z3A.00 Weeks of gestation of pregnancy not specified
CPT/HCPCS: 76817; 84702; 99283; A4216

== ENCOUNTER 2024-01-05 08:38 | Emergency (ER) | payer BC, MEDICAID, SELFPAY ==
[2024-01-05 08:39] VITALS: BP 133/75; PULSE 68; RESP 14; TEMP 36.8; O2SAT 98; BMI 41.9
--- NOTE | 2024-01-05 09:03 | EDS_ITS ---
HPI HPI - GI History of Present Illness Chief Complaint: Nausea/Vomiting Informant: patient Nausea/Vomiting/Emesis GI Symptom: Positive for Nausea and Vomiting Onset: Today and Yesterday Severity: Moderate Diarrhea/Melena/Hematochezia GI Symptom: Positive for Diarrhea; Negative for Melena or Hematochezia Onset: Today and Yesterday Stool Quality: Positive for Loose Severity: Mild Associated Symptoms Associated Symptoms: Negative for Dysuria, Frequency, Hematuria or Urgency Narrative Narrative: 19-year-old female G2, P1 Ab0 currently about 7 weeks . [facility] Prior cholecystectomy. States for the last 2 days she has had nausea vomiting and diarrhea. No send of abdominal pain. No dysuria. No fever. Feels dehydrated. 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 Prior similar symptoms: No Recent Illness/Hospitalization: No PFSH PFSH Medical History no medical history no medical history Home Medications ondansetron 4 mg disintegrating tablet 4 mg PO Q8H PRN PRN Nausea #10 tabs 01/05/24 [Rx Last Taken Unknown] ondansetron HCl 4 mg tablet 4 mg PO Q8H PRN nausea and vomiting 01/05/24 [History Last Taken Unknown] Allergy/AdvReac Type Severity Reaction Status Date / Time No Known Allergies Allergy Verified 01/05/24 08:39 Surgical History History of cholecystectomy Social History Smoking Status: Never smoker ROS ROS ED ROS Narrative Nausea, vomiting and diarrhea last 2 days. Review of Systems ROS Unobtainable: Denies due to encephalopathy Constitutional Constitutional ED: Denies chills or fever(s) ENT ENT ED: Denies ear pain Cardiovascular Cardiovascular: Denies chest pain Respiratory/Chest Respiratory/Chest: Denies cough or dyspnea Gastrointestinal Gastrointestinal: Reports diarrhea, nausea and vomiting; Denies abdominal pain, constipation or melena Genitourinary Genitourinary ED: Denies dysuria or hematuria Musculoskeletal Musculoskeletal: Denies arthralgias, back pain, myalgias or neck pain Integumentary Denies abscess or Abrasions Neurologic Neurologic: Denies headache(s) Psychiatric Psychiatric: Denies anxiety or depression Endocrine Endocrinology: Denies polydipsia or polyphagia Hematologic/Lymphatic Hematologic/Lymphatic: Denies easy bleeding, easy bruising or lymphadenopathy Allergic/Immunologic Allergic/Immunologic ED: Denies mouth swelling, tongue swelling or urticaria EXAM Physical Exam Narrative Exam Narrative: 19-year-old female vital signs stable afebrile. H EENT exam unremarkable except mild dry mucous members. Neck nontender no lymphadenopathy. Lungs clear to auscultation bilaterally. Heart regular rhythm rate about 70 no murmur. Chest wall and ribs nontender. Abdomen soft nontender. Nondistended. No obstruction. No hernia or mass. Back nontender. Moving all 4 extremities. Calves are nontender without edema or cords. 5 5 grip assembler strength. Dorsi plantarflexion intact. Neurologically she is awake and alert no focal motor deficits. Const Vital Signs: 01/05/24 08:39 Temperature 98.2 F Temperature Source Temporal Pulse Rate 68 Respiratory Rate 14 Blood Pressure 133/75 H Blood Pressure Mean 94 Pulse Ox 98 Oxygen Delivery Method Room Air Positive well nourished and well developed; Negative for cachectic, contractures or unkempt General Appearance ED: well developed and NAD; Negative for unkempt, cachectic, contractures or pallor Nutritional Appearance: Negative for cachectic HEENT Reports dry mucous membranes; Denies moist mucous membranes normocephalic and atraumatic; Negative for trauma or tenderness Mouth ED: Yes dry mucous membranes Mouth: dry mucous membranes Eyes PERRL and EOMs intact bilaterally General Eye ED: Negative for pale conjunctiva or scleral icterus Neck no lymphadenopathy, supple and no JVD General: Negative for tenderness Carotids: Negative for other Lymph Lymphatic: Negative for other Resp normal respiratory effort and clear to auscultation bilaterally Effort and Inspection: Negative for respiratory distress or retractions Auscultation: Negative for rales, rhonchi or wheezes Cardio regular rhythm, S1 normal heart sound, S2 normal heart sound and no murmurs Rate: Negative for bradycardia or tachycardic Rhythm: Negative for abnormal rhythm GI non-tender, non-distended and no masses Inspection: Negative for abdominal distention Auscultation: normoactive bowel sounds Palpation: soft; Negative for tender, guarding or rebound tenderness present Back/Spine no CVA tenderness General Back: Negative for CVA tenderness Cervical Spine: Negative for cervical spine tenderness Thoracic Spine / Upper Back: Negative for thoracic spinal tenderness Lumbar Spine / Lower Back: Negative for lumbar spinal tenderness Coccyx: Negative for other Extremity full ROM General Extremety ED: Negative for edema or tenderness General Extremity: Negative for edema Neuro CN's II-XII intact bilaterally and moves all extremities Sensorium / Orientation: alert, oriented to person, oriented to place and oriented to time; Negative for orientation impaired, confused, lethargic or stuporous Motor Exam: Negative for strength 5/5 throughout or general weakness Psych mental status grossly normal and thought process normal Appearance: Negative for unkempt Attitude: No agitated Mood & Affect: Negative for depressed, anxious or tearful Skin no wounds General Skin Exam: Negative for jaundice or pallor Lesions: no lesions and No lesion noted Rashes: no rashes Trauma: Negative for abrasion Nails: Negative for discolored MDM MDM MDM Narrative Medical decision making narrative: 19-year-old nausea vomiting and diarrhea at 7 weeks . Clinical looks mildly dehydrated. IV fluids. IV Zofran. She is having no urinary symptoms. I do not think she needs any imaging. Her abdomen is completely nontender. BMP. Reassess. P.o. fluid challenge. Repeat exam at 9:39 AM patient doing well. Abdomen benign. Nausea improved with IV Zofran. She is receiving the IV fluids. She has been able to drink water and have some crackers. She will be discharged home on Zofran. Follow-up with her OB as needed. Return if worse. History & Record Review Discussion w/independent historian: Patient and Family Additional record(s) reviewed:: Prior inpatient record, Prior outpatient record, Prior ED visit and Prior labs Lab Data Attestation: I reviewed the patient's lab results. Lab results narrative: BMP shows no acute abnormality. Gap 5. Normal BUN of 7 creatinine 0.6. Glucose 89. Labs: Laboratory Results - last 24 hr 01/05/24 09:10 Sodium 137 Potassium 3.7 Chloride 109 H Carbon Dioxide 23.0 Anion Gap 5 BUN 7 Creatinine 0.64 Estim Creat Clear Calc 163.23 Est GFR (MDRD) Af Amer 151 Est GFR (MDRD) Non-Af 125 BUN/Creatinine Ratio 11.0 Glucose 89 Calcium 9.3 Discharge Plan Triage Chief Complaint: Nausea/Vomiting ED Provider: Dlae Sesay Dx/Rx/DC Orders Clinical Impression: First trimester , Nausea & vomiting Instructions: ED Vomiting (Adult) Prescriptions: New ondansetron 4 mg tablet,disintegrating 4 mg PO Q8H PRN PRN (Reason: Nausea) Qty: 10 0RF No Action ondansetron HCl 4 mg tablet 4 mg PO Q8H PRN (Reason: nausea and vomiting) Patient Comments: take 1 tablet by mouth every 8 hours if needed for nausea and vomiting Primary Care Provider: Bradley Posada Referrals: Malini La MD [Med Staff - Active Staff] - As Needed Bradley Posada MD [Primary Care Provider] - Activity Restrictions/Additional Instructions: Zofran as needed for nausea. You can either swaddle it dissolve under your tongue. Plenty of fluids and rest. Increase your diet slowly as tolerated. Initially started out with water, Gatorade and 7-Up and increase from there. Follow-up with your OB as needed. Return if worse. Disposition Disposition: Home, Self Care
[2024-01-05] MEDS: Ondansetron 4 MG/2 ML Vial IV ×2 (09:15→10:46)
[2024-01-05] MEDS: 0.9% Normal Saline (1000mL) 1,000 ML 1000 ML IV (09:16)
[2024-01-05 09:28] LABS: Anion Gap 5 (5-15); BUN 7 mg/dL (7-18); Calcium,Total 9.3 mg/dL (8.5-10.1); Chloride 109 mmol/L (98-107); Creatinine, Serum 0.64 mg/dL (0.55-1.02); EST Glomerular Filtration Rate 125 mL/min (>60); Est Glom Filt Rate - Afr Amer 151 mL/min (>60); Estimated Creatinine Clearance 163.23 ml/min; Glucose 89 mg/dL (74-106); Potassium 3.7 mmol/L (3.5-5.1); Sodium Level 137 mmol/L (136-145)
[2024-01-05 10:47] VITALS: BP 123/69; PULSE 87; RESP 16; O2SAT 99
[2024-01-05 12:23] VITALS: BP 106/74; PULSE 78; RESP 169; TEMP 37; O2SAT 98
== END 2024-01-05 12:23 | disposition home or self-care (01) ==
PROVIDERS: Emergency Provider Emergency Medicine; PCP Pediatrics; Visit Provider Emergency Medicine
DX: O21.9 Vomiting of pregnancy, unspecified (principal); Z3A.01 Less than 8 weeks gestation of pregnancy; Z90.49 Acquired absence of other specified parts of digestive tract
CPT/HCPCS: 80048; 96361; 96374; 96376; 99283; A4216; J2405

== ENCOUNTER 2024-01-08 08:52 | Emergency (ER) | payer BC, MEDICAID, SELFPAY ==
[2024-01-08 08:54] VITALS: BP 136/73; PULSE 95; RESP 14; TEMP 36.1; O2SAT 94; BMI 43.0
--- NOTE | 2024-01-08 09:29 | US_ITS ---
HISTORY: viability. LMP 11/18/2023. TECHNIQUE: Transvaginal pelvic ultrasound was performed. 48 images. COMPARISON: 12/28/2023. FINDINGS: UTERUS: 9.7 x 4.9 x 7 cm. RIGHT OVARY: 4.4 x 5.4 x 6.5 cm. 4.5 x 5.2 x 6 cm unilocular cyst, previously 4.8 x 5.1 x 5.5 cm. LEFT OVARY: 2.1 x 2.7 x 3.6 cm. No adnexal masses. FREE FLUID: Trace. INTRAUTERINE GESTATIONAL SAC: Single. Mean sac diameter 1.7 cm corresponding to 6 weeks 4 days. YOLK SAC: 4 mm. POLE: [place]-rump length 6.6 mm corresponding to 6 weeks 5 days. ESTIMATED DELIVERY DATE: 08/28/2024. HEART MOTION: 132 bpm. US/Transvaginal w/Preg US IMPRESSION: Intrauterine with an estimated gestational age of 6 weeks 5 days and heart tones demonstrated. 6 cm simple cyst in the right ovary, previously 5.5 cm. Trace free fluid in the pelvis, decreased from prior. Electronically Signed: Jacinda Little MD at 11:11 EST ,
--- NOTE | 2024-01-08 09:30 | EX.ED.DYSGE1 ---
HPI History of Present Illness Chief Complaint: Nausea/Vomiting Informant: patient Narrative Narrative: 19-year-old female presenting to the emergency room chief complaint of nausea and vomiting. Patient states she is G2, P1 Ab0 at approximately 7 to 8 weeks. She states that her first child was delivered with [place] but they were unable to see her for this and so she has an upcoming appointment with [facility] (Dr. La). She reports that she had some blood work done with them and her hCG level was increasing. Patient states that she had a pelvic ultrasound last month when she first found out she was . She was seen in the emergency department several days ago for nausea vomiting and has been taking Zofran without significant relief. She states that she continues to have vomiting and decreased p.o. intake and was advised to come back to emergency. Per the patient and review of the patient's chart she is a positive blood type. She states that she did have some spotting last month but has not had any vaginal bleeding or discharge since. She notes no upper abdominal pain. She has had prior cholecystectomy. She notes decreased bowel movements secondary to not eating anything . PFSH PFSH Home Medications ondansetron 4 mg disintegrating tablet 4 mg PO Q6H PRN PRN Nausea #20 tabs 01/08/24 [Rx Last Taken Unknown] promethazine 25 mg rectal suppository (Promethegan) 25 mg RECTAL Q6H PRN PRN Nausea ##15 01/08/24 [Rx Last Taken Unknown] Allergy/AdvReac Type Severity Reaction Status Date / Time No Known Allergies Allergy Verified 01/08/24 08:53 Surgical History History of cholecystectomy Social History Smoking Status: Never smoker ROS ROS ED Constitutional Constitutional ED: Denies chills, fever(s) or weight loss Eyes Eyes: Denies change in vision or diplopia ENT ENT ED: Denies ear pain, rhinorrhea or sore throat Cardiovascular Cardiovascular: Denies chest pain, orthopnea, palpitations or racing heartbeat Respiratory/Chest Respiratory/Chest: Denies cough, dyspnea or orthopnea Gastrointestinal Gastrointestinal: Reports nausea and vomiting; Denies abdominal pain or diarrhea Genitourinary Genitourinary ED: Denies dysuria, hematuria or urinary frequency Musculoskeletal Musculoskeletal: Denies arthralgias, back pain or myalgias Integumentary Denies abscess or rash Neurologic Neurologic: Denies headache(s) or weakness Psychiatric Psychiatric: Denies anxiety, depression, suicidal ideation or suicidal thoughts Endocrine Endocrinology: Denies polydipsia, polyphagia or polyuria Allergic/Immunologic Allergic/Immunologic ED: Denies mouth swelling, tongue swelling or urticaria EXAM Physical Exam Const Vital Signs: 01/08/24 08:54 01/08/24 13:45 Temperature 96.9 F L 96.9 F L Temperature Source Temporal Pulse Rate 95 95 Respiratory Rate 14 14 Blood Pressure 136/73 H 136/73 H Blood Pressure Mean 94 94 Pulse Ox 94 94 Oxygen Delivery Method Room Air Positive well nourished, well developed and obese General Appearance ED: well developed Nutritional Appearance: obese HEENT Reports normocephalic, head/scalp atraumatic and moist mucous membranes Eyes PERRL and EOMs intact bilaterally Neck no lymphadenopathy, supple and no JVD Resp normal respiratory effort and clear to auscultation bilaterally Cardio regular rate, regular rhythm and no murmurs GI normal to inspection, nondistended, normoactive bowel sounds and non-tender Palpation: soft Back/Spine no CVA tenderness and normal ROM Extremity normal to inspection General Extremety ED: Negative for edema General Extremity: Negative for edema Neuro oriented x3 and CN's II-XII intact bilaterally Sensorium / Orientation: alert Motor Exam: strength 5/5 throughout Psych mental status grossly normal Mood & Affect: Negative for depressed or tearful Skin no rashes or lesions noted and no wounds MDM MDM MDM Narrative Medical decision making narrative: Pelvic ultrasound demonstrates a single live intrauterine measuring approximately 6 weeks and 5 days. Basic blood work was obtained shows a white count of 15.6. Glucose 92 quantitative hCG 42690. Transaminases slightly elevated with an AST of 39 ALT of 67 rather nonspecific. Urinalysis demonstrates 25-50 white cells 5-10 squamous cells 1+ bacteria positive ketones. Nitrates are negative and she does not complain of any UTI-like symptoms. Patient received Zofran and IV fluids. Later she received an oral Phenergan but states she threw it up so gave her an additional dose of Zofran. I spoke with on-call [facility] obstetrics. Patient feels well enough that she can go home I will write for additional Zofran as well as Phenergan suppositories. Clinically she is appearing well-hydrated. She has got good capillary refill and she is not tachycardic. Patient is tolerating p.o. at this time. Patient will be following up with [facility]. History & Record Review Discussion w/independent historian: Patient and Significant other Lab Data Attestation: I reviewed the patient's lab results. Labs: Laboratory Results - last 24 hr 01/08/24 01/08/24 09:45 11:01 WBC 15.6 H RBC 5.03 Hgb 14.4 Hct 42.6 MCV 84.7 MCH 28.6 MCHC 33.8 RDW Std Deviation 39.4 RDW Coeff of Beata 12.9 Plt Count 402 MPV 9.3 Immature Gran % (Auto) 0.600 Neut % (Auto) 71.0 H Lymph % (Auto) 20.1 [place] % (Auto) 7.2 Eos % (Auto) 0.6 Baso % (Auto) 0.5 Absolute Neuts (auto) 11.1 H Absolute Lymphs (auto) 3.13 Nucleated RBC % 0 Sodium 136 Potassium 3.5 Chloride 107 Carbon Dioxide 24.0 Anion Gap 5 BUN 6 L Creatinine 0.68 Estim Creat Clear Calc 150.36 Est GFR (MDRD) Af Amer 139 Est GFR (MDRD) Non-Af 115 BUN/Creatinine Ratio 8.8 L Glucose 92 Calcium 9.7 Total Bilirubin 0.90 AST 39 H ALT 67 H Alkaline Phosphatase 44 L Total Protein 8.3 H Albumin 4.1 Globulin 4.2 Albumin/Globulin Ratio 1.0 HCG, Quant 63497 H Urine Color Yellow Urine Clarity Sl. Cloudy Urine pH 6.0 Ur Specific [place] 1.020 Urine Protein 30 H Urine Glucose (UA) Normal Urine Ketones 150 A* Urine Occult Blood 25 H Urine Nitrite Negative Urine Bilirubin Negative Urine Urobilinogen 4 H Ur Leukocyte Esterase 500 H Urine RBC 0-5 SEEN Urine WBC 25-50 SEEN Ur Squamous Epith Cells 5-10 SEEN Urine Bacteria 1+ Urine Mucus 2+ Radiography Diagnostic Testing: Clinical Impression(s) from Imaging Studies Obstetrics Ultrasound 01/08/24 09:29 IMPRESSION: Intrauterine with an estimated gestational age of 6 weeks 5 days and heart tones demonstrated. 6 cm simple cyst in the right ovary, previously 5.5 cm. Trace free fluid in the pelvis, decreased from prior. Electronically Signed: Jacinda Little MD at 11:11 EST , Discharge Plan Triage Chief Complaint: Nausea/Vomiting ED Provider: Sree Pereira Dx/Rx/DC Orders Clinical Impression: First trimester , Nausea & vomiting Instructions: 1st Trimester, ED Hyperemesis Gravidarum Prescriptions: New promethazine [Promethegan] 25 mg suppository 25 mg RECTAL Q6H PRN PRN (Reason: Nausea) Qty: 15 0RF ondansetron [ondansetron] 4 mg tablet,disintegrating 4 mg PO Q6H PRN PRN (Reason: Nausea) Qty: 20 0RF Primary Care Provider: Bradley Posada Referrals: Malini La MD [Med Staff - Active Staff] - As soon as possible Bradley Posada MD [Primary Care Provider] - Disposition Disposition: Home, Self Care Discharge Date/Time: 01/08/24 13:48
[2024-01-08] MEDS: Ondansetron 4 MG/2 ML Vial IV (09:56)
[2024-01-08] MEDS: 0.9% Normal Saline (1000mL) 1,000 ML 1000 ML IV ×2 (09:56→11:00)
[2024-01-08 10:11] LABS: AST(SGOT) 39 U/L (15-37); Absolute Lymphocyte Count 3.13 X10^3/uL (0.83-4.51); Absolute Neutrophil Count 11.1 X10^3/uL (2.0-7.7); Alanine Aminotransfer ALT/SGPT 67 U/L (13-56); Albumin, Serum 4.1 g/dL (3.2-5.0); Alkaline Phosphatase 44 U/L (45-117); Anion Gap 5 (5-15); BUN 6 mg/dL (7-18); BUN/Creat Ratio 8.8 RATIO (10-20); Basophil# 0.08 X10^3/uL; Basophil% 0.5 % (0-1); Calcium,Total 9.7 mg/dL (8.5-10.1); Chloride 107 mmol/L (98-107); Creatinine, Serum 0.68 mg/dL (0.55-1.02); EST Glomerular Filtration Rate 115 mL/min (>60); Eosinophils% 0.6 % (0-5); Est Glom Filt Rate - Afr Amer 139 mL/min (>60); Estimated Creatinine Clearance 150.36 ml/min; Globulin 4.2 g/dL (2.2-4.2); Glucose 92 mg/dL (74-106); Hematocrit 42.6 % (37-47); Hemoglobin 14.4 g/dL (12.0-15.0); Lymphocyte # 3.13 X10^3/ul (0.83-4.51); Lymphocyte % 20.1 % (19-41); Mean Corp Hgb Conc 33.8 g/dL (32-36); Mean Corpuscular Hgb 28.6 pg (27.0-32.0); Mean Corpuscular Volume 84.7 fL (81-99); Mean Platelet Vol. 9.3 fl (6.2-12.0); Monocyte# 1.13 X10^3/uL; Monocyte% 7.2 % (0-10); NRBC Flagged by Analyzer 0 % (0-5); Neutrophil # 11.08 X10^3/uL (2.7-7.7); Platelet Count 402 K/mm3 (150-450); Potassium 3.5 mmol/L (3.5-5.1); Protein, Total 8.3 g/dL (6.4-8.2); RBC Distribution Width CV 12.9 % (11.6-14.6); RBC Distribution Width SD 39.4 fl (35.1-43.9); Red Blood Count 5.03 M/mm3 (4.2-5.4); Sodium Level 136 mmol/L (136-145); White Blood Count 15.6 K/mm3 (4.4-11.0)
[2024-01-08 10:58] LABS: hCG Titer Quant., Serum 26172 mIU/mL (1-3)
[2024-01-08 11:06] LABS: Color, Urine Yellow (Yellow); Glucose, Dipstick Normal (Normal); Leukocyte Esterase-Dipstick 500 /ul (Negative); Nitrite-Dipstick Negative (Negative); Occult Blood-Urine 25 /ul (Negative); Protein-Dipstick 30 mg/dl (Negative); Urine Bilirubin Dipstick Negative (Negative); Urine Clarity Sl. Cloudy (Clear); Urine Urobilinogen 4 mg/dl (Normal)
[2024-01-08] MEDS: proMETHazine 25 MG Tablet PO (11:06)
[2024-01-08 11:18] LABS: Ketone-Dipstick 150 mg/dl (Negative)
[2024-01-08 11:19] LABS: Mucous, Urine 2+ /hpf (<or=2+); Squamous Epithelial Cells - UA 5-10 SEEN /hpf (5-10)
[2024-01-08 11:20] LABS: Bacteria 1+ /hpf (None Seen); Red Blood Cells-Urine 0-5 SEEN /hpf (0-5); White Blood Cells 25-50 SEEN /hpf (0-5)
[2024-01-08 13:45] VITALS: BP 136/73; PULSE 95; RESP 14; TEMP 36.1; O2SAT 94
== END 2024-01-08 13:48 | disposition home or self-care (01) ==
PROVIDERS: Emergency Provider Emergency Medicine; PCP Pediatrics; Visit Provider Emergency Medicine
DX: O21.0 Mild hyperemesis gravidarum (principal); Z3A.01 Less than 8 weeks gestation of pregnancy; Z90.49 Acquired absence of other specified parts of digestive tract
CPT/HCPCS: 76817; 80053; 81001; 84702; 85025; 96361; 96374; 99283; J7030; A4216; J2405

== ENCOUNTER 2024-01-16 14:44 | Emergency (ER) | payer BC, MEDICAID, SELFPAY ==
[2024-01-17 14:59] LABS: ALB/GLOB Ratio 0.9 RATIO (0.9-2.4); AST(SGOT) 16 U/L (15-37); Alanine Aminotransfer ALT/SGPT 33 U/L (13-56); Albumin, Serum 3.6 g/dL (3.2-5.0); Alkaline Phosphatase 48 U/L (45-117); BUN 5 mg/dL (7-18); BUN/Creat Ratio 8.9 RATIO (10-20); Calcium,Total 9.1 mg/dL (8.5-10.1); Creatinine, Serum 0.56 mg/dL (0.55-1.02); EST Glomerular Filtration Rate 145 mL/min (>60); Est Glom Filt Rate - Afr Amer 176 mL/min (>60); Globulin 3.8 g/dL (2.2-4.2); Glucose 87 mg/dL (74-106); Lipase 13 U/L (13-75); Protein, Total 7.4 g/dL (6.4-8.2)
[2024-01-17 15:00] LABS: Anion Gap 4 (5-15); Chloride 107 mmol/L (98-107); Potassium 3.8 mmol/L (3.5-5.1); Sodium Level 138 mmol/L (136-145)
--- OUTSIDE RECORDS SUMMARY | 2024-01-17 21:52 | XMS RPT_ITS | CCD ---
Author Name Unknown Address [address] [place] [address] Organization [facility] Care Team Providers Care 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 Name Role Phone FROYLAN FREED, DR DUSTY Taylor Primary Care Physician CLARE LIZ MD Attending Unavailable FROYLAN FLOR, DR. DUSTY Taylor Primary Care Unavail able DUSTY POSADA Primary Care Unavailable REFERRED, SELF Referring Unavailable ALYSSA PAULINO Attending Unavailable Karen Griffin Unavailable Dusty Posada Primary Care Provider Karen Griffin Primary Care Provider Karen Griffin Unavailable CATIE MONTES Attending Unavailable DUSTY POSADA Primary Care Unavailab DANAE Ragsdale Referring Unavailable KAREN GRIFFIN Primary Care Unavaila ble DUSTY POSADA Primary Care UnavailCATIE Torres Attending Unavailable JOCELYNN ARAIZA Referring Unavailable DUSTY POSADA Primary Care UnavailCATIE Torres Attending Unavailable CATIE MONTES Referring Unavailable DUSTY POSADA Primary Care Unavailab shipley Allergies Allergy Classification Reported Allergen(s) Allergy Type Date of Onset Reaction(s) Facility (4 sources) Morphine; Translations: [MORPHINE] Drug Allergy 01-11-2024 GI Upset [facility] Medications Current Medications Medication Drug Class(es) Dates Sig (Normalized) Sig (Original) etonogestrel 68 mg drug implant (2 sources) Progestin Start: 11-05-2018 inject 1 dose by [...] Ordered promethazine hydrochloride 25 mg oral tablet (5 sources) Phenothiazine Start: 10-09-2019 promethazine 25 mg oral tablet Dose : 25 mg = 1 tab(s), Oral, q4h, # 12 tab(s), 0 Refill(s), Vertigo Start Date: 10/09/19 Status: Ordered Completed/Discontinued Medications Medication Drug Class(es) Dates Sig (Normalized) Sig (Original) ondansetron 4 mg disintegrating oral tablet (6 sources) Serotonin-3 Receptor Antagonist Start: 01-15-2024 take 1 tablet by mouth every eight hours as needed ondansetron orally disintegrating (ZOFRAN ODT) 4 mg disintegrating tablet Take 1 tablet by mouth every 8 hours as needed for nausea/vomiting. 90 tablet 3 01/15/2024 Active Problems Active Problems Problem Classification Problem Date Documented Da te Episodic/Chronic Hemorrhage during ; abruptio placenta; placenta previa (2 sources) Hemorrhage in early , unspecified; Translations: [Unspecified hemorrhage in early , antepartum condition or complication] Onset: 2024 2024 Episodic Other complications of (4 sources) Maternal obesity complicating , childbirth and the puerperium, antepartum; Translations: [Obesity complicating , first trimester] Onset: 01-15-2024 01-15-2024 Chronic Other complications of (7 sources) Nausea and vomiting; Translations: [Vomiting of , unspecified] Onset: 01-01-2024 01-01-2024 Episodic Other complications of (4 sources) High risk ; Translations: [Supervision of high risk , unspecified, first trimester] Onset: 01-15-2024 01-15-2024 Episodic Other complications of (4 sources) History of delivery of macrosomal infant; Translations: [Supervision of with other poor reproductive or obstetric history, unspecified trimester] Onset: 01-15-2024 01-15-2024 Episodic Other complications of (4 sources) Diseases of the digestive system complicating , first trimester; Translations: [Other current conditions classifiable elsewhere of mother, antepartum condition or complication] Onset: 01-15-2024 01-15-2024 Episodic Other complications of (1 source) Vomiting of ; Translations: [Vomiting of , unspecified] Onset: 01-16-2024 Episodic Other gastrointestinal disorders (1 source) Disorder of intestine; Translations: [Other specified diseases of intestine] Onset: 10-25-2022 Episodic Other and delivery including normal (7 sources) Early stage of ; Translations: [Encounter for supervision of normal , unspecified, unspecified trimester] Onset: 12-29-2023 12-29-2023 Episodic Past or Other Problems Problem Classification Problem Date Documented Da te Episodic/Chronic Viral infection (1 source) Disease caused by 2019-nCoV; Translations: [COVID-19] Onset: 10-25-2022 Results Test Name Value Interpretation Reference Range Facil ity Vital Signs Date Time Vital Sign Value Performing Clinician Facility 01-16-2024 22:13-0400 Diastolic Blood Pressure Non-Invasive 88 mm[Hg] TARIQ YODER MD [facility] 01-16-2024 22:13-0400 Heart rate 85 /min TARIQ YODER MD [facility] 01-16-2024 22:13-0400 Respiratory rate 16 /min TARIQ YODER MD [facility] 01-16-2024 22:13-0400 Systolic Blood Pressure Non-Invasive 133 mm[Hg] TARIQ YODER MD [facility] 01-16-2024 20:19-0400 Body temperature 98.96 [degF] TARIQ YODER MD [facility] 01-16-2024 20:19-0400 Body weight 108.5 kg TARIQ YODER MD [facility] 01-16-2024 20:19-0400 Diastolic Blood Pressure Non-Invasive 89 mm[Hg] TARIQ YODER MD [facility] 01-16-2024 20:19-0400 Heart rate 94 /min TARIQ YODER MD [facility] 01-16-2024 20:19-0400 Respiratory rate 18 /min TARIQ YODER MD [facility] 01-16-2024 20:19-0400 Systolic Blood Pressure Non-Invasive 134 mm[Hg] TARIQ YODRE MD [facility] 01-15-2024 10:16-0400 Body height 167 cm Catie Montes GYMNASTIC COACH.TOY CONSULTANT Work Phone: [facility] 01-15-2024 10:16-0400 Body weight 108.5 kg Catie Montes GYMNASTIC COACH.TOY CONSULTANT Work Phone: [facility] 01-15-2024 10:16-0400 Diastolic blood pressure 66 mm[Hg] Catie Montes GYMNASTIC COACH.TOY CONSULTANT Work Phone: [facility] 01-15-2024 10:16-0400 Systolic blood pressure 124 mm[Hg] Catie Muhammadury GYMNASTIC COACH.TOY CONSULTANT Work Phone: [facility] 10-25-2022 21:01-0500 Diastolic Blood Pressure Non-Invasive 75 1 CLARE LIZ MD [facility] 10-25-2022 21:01-0500 Heart rate 85 /min CLARE LIZ MD [facility] 10-25-2022 21:01-0500 Respiratory rate 18 /min CLARE LIZ MD [facility] 10-25-2022 21:01-0500 Systolic Blood Pressure Non-Invasive 127 1 CLARE LIZ MD [facility] 10-25-2022 18:10-0500 Diastolic Blood Pressure Non-Invasive 68 1 CLARE LIZ MD [facility] 10-25-2022 18:10-0500 Heart rate 95 /min CLARE LIZ MD [facility] 10-25-2022 18:10-0500 Respiratory rate 11 /min CLARE LIZ MD [facility] 10-25-2022 18:10-0500 Systolic Blood Pressure Non-Invasive 140 1 CLARE LIZ MD [facility] 10-25-2022 16:12-0500 Diastolic Blood Pressure Non-Invasive 75 1 CLARE LIZ MD [facility] 10-25-2022 16:12-0500 Heart rate 79 /min CLARE LIZ MD [facility] 10-25-2022 16:12-0500 Respiratory rate 12 /min CLARE LIZ MD [facility] 10-25-2022 16:12-0500 Systolic Blood Pressure Non-Invasive 127 1 CLARE LIZ MD [facility] 10-25-2022 14:48-0500 Blood Pressure Location CLARE LIZ MD [facility] 10-25-2022 14:48-0500 Blood Pressure Method CLARE LIZ MD [facility] 10-25-2022 14:48-0500 Body temperature 96.8 [degF] CLARE LIZ MD [facility] Encounters Encounter Date Encounter Type Care Provider Facility Start: 01-16-2024 End: 01-16-2024 Emergency department patient visit TARIQ YODER MD [facility] Start: 01-16-2024 Telephone encounter Jackie Ashleigh aguillon GYMNASTIC COACH.CNM Work Phone: OB/Gynecology Procedures Date Procedure Procedure Detail Performing Clinician Start: 01-15-2024 Us uterus l imited 1/> fetuses Catie Montes GYMNASTIC COACH.TOY CONSULTANT Work Phone: Cholecystectomy CLARE Stokes MD Plan of Treatment Date Care Activity Detail Author Start: 11-16-2026 Urine microalbumin profile DTaP,Tdap,Td Vaccine (9 - Td or Tdap) [facility] Start: 01-14-2025 GC (Gonorrhea) Screening (18-24) GC (Gonorrhea) Screening (18-24) [facility] Start: 01-14-2025 Screening for Chlamydia trachomatis Chlamydia Screening (18-24) [facility] Start: 07-07-2024 RSV Vaccine (1 - Risk 1-dose series) RSV Vaccine (1 - Risk 1-dose series) [facility] Start: 01-15-2024 End: 04-15-2024 CARRIER SCREEN, STANDARD CARRIER SCREEN, STANDARD Lab Routine Encounter for supervision of high risk in first trimester, antepartum 8 weeks gestation of Expected: 01/15/2024, Expires: 04/15/2024 [facility] Work Phone: Immunizations Immunization Date Immunization Notes Care Provider Fa [facility] 05-27-2021 hepatitis A vaccine, pediatric/adolescent dosage, 2 dose schedule Kimberli Raymundo MD Work Phone: [facility] Work Phone: 05-27-2021 Human Papillomavirus 9-valent vaccine Kimberli Raymundo MD Work Phone: [facility] Work Phone: 05-27-2021 meningococcal B vacc ine, recombinant, OMV, adjuvanted Kimberli Raymundo MD Work Phone: [facility] Work Phone: 05-27-2021 meningococcal polysaccharide (groups A, C, Y and W-135) diphtheria toxoid conjugate vaccine (MCV4P) Kimberli Raymundo MD Work Phone: [facility] Work Phone: 09-29-2017 Human Papillomavirus 9-valent vaccine Kimberli Raymundo MD Work Phone: [facility] Work Phone: 09-29-2017 influenza, injectabl e, quadrivalent, preservative free Kimberli Raymundo MD Work Phone: [facility] Work Phone: 09-29-2017 meningococcal polysaccharide (groups A, C, Y and W-135) diphtheria toxoid conjugate vaccine (MCV4P) Kimberli Raymundo MD Work Phone: [facility] Work Phone: 09-29-2017 influenza virus vacc ine, unspecified formulation Kimberli Raymundo MD Work Phone: [facility] 01-27-2017 measles, mumps and rubella virus vaccine Kimberli Raymundo MD Work Phone: [facility] 11-16-2016 tetanus toxoid, redu francesco diphtheria toxoid, and acellular pertussis vaccine, adsorbed Kimberil Raymundo MD Work Phone: [facility] 07-27-2016 influenza, injectabl e, quadrivalent, contains preservative Kimberli Raymundo MD Work Phone: [facility] 08-24-2015 influenza virus vacc ine, live, attenuated, for intranasal use Kimberli Raymundo MD Work Phone: [facility] 08-24-2015 tetanus toxoid, redu francesco diphtheria toxoid, and acellular pertussis vaccine, adsorbed Kimberli Raymundo MD Work Phone: [facility] Work Phone: 12-02-2014 tetanus toxoid, redu francesco diphtheria toxoid, and acellular pertussis vaccine, adsorbed Kimberli Raymundo MD Work Phone: [facility] 08-01-2014 influenza virus vacc ine, live, attenuated, for intranasal use Kimberli Raymundo MD Work Phone: [facility] 11-30-2009 novel influenza-H1N1 -09, preservative-free, injectable Kimberli Raymundo MD Work Phone: [facility] Work Phone: 10-28-2009 influenza, seasonal, injectable, preservative free Kimberli Raymundo MD Work Phone: [facility] Work Phone: 10-28-2009 novel Influenza-H1N1 -09, live virus for nasal administration Kimberli Raymundo MD Work Phone: [facility] 11-21-2008 influenza virus vacc ine, whole virus Kimberli Raymundo MD Work Phone: [facility] Work Phone: 01-11-2008 diphtheria, tetanus toxoids and acellular pertussis vaccine, unspecified formulation Kimberli Raymundo MD Work Phone: [facility] Work Phone: 01-11-2008 measles, mumps and rubella virus vaccine Kimberli Raymundo MD Work Phone: [facility] Work Phone: 01-11-2008 poliovirus vaccine, inactivated Kimberli Raymundo MD Work Phone: [facility] Work Phone: 01-11-2008 varicella virus vaccine Nikita Raymundo MD Work Phone: [facility] Work Phone: 08-25-2004 influenza virus vacc ine, whole virus Kimberli Raymundo MD Work Phone: [facility] 08-25-2004 pneumococcal conjuga te vaccine, 7 valent Kimberli Raymundo MD Work Phone: [facility] 05-24-2004 diphtheria, tetanus toxoids and acellular pertussis vaccine, unspecified formulation Kimberli Raymundo MD Work Phone: [facility] 05-24-2004 haemophilus influenz ae type b conjugate and Hepatitis B vaccine Kimberli Raymundo MD Work Phone: [facility] 05-24-2004 haemophilus influenz ae type b vaccine, PRP-T conjugate Kimberli Raymundo MD Work Phone: [facility] Work Phone: 05-24-2004 hepatitis B vaccine, pediatric or pediatric/adolescent dosage Kimberli Raymundo MD Work Phone: [facility] Work Phone: 01-05-2004 hepatitis B vaccine, pediatric or pediatric/adolescent dosage Kimberli Raymundo MD Work Phone: [facility] 01-05-2004 measles, mumps and rubella virus vaccine Kimberli Raymundo MD Work Phone: [facility] 01-05-2004 varicella virus vaccine Nikita Raymundo MD Work Phone: [facility] 2003 diphtheria, tetanus toxoids and acellular pertussis vaccine Kimberli Raymundo MD Work Phone: [facility] Work Phone: 2003 DTaP-hepatitis B and poliovirus vaccine Kimberli Raymundo MD Work Phone: [facility] 2003 haemophilus influenz ae type b vaccine, PRP-T conjugate Kimberli Raymundo MD Work Phone: [facility] Work Phone: 2003 hepatitis B vaccine, pediatric or pediatric/adolescent dosage Kimberli Raymundo MD Work Phone: [facility] Work Phone: 2003 influenza virus vacc ine, whole virus Kimberli Raymundo MD Work Phone: [facility] 2003 pneumococcal conjuga te vaccine, 7 valent Kimberli Raymundo MD Work Phone: [facility] 2003 poliovirus vaccine, inactivated Kimberli Raymundo MD Work Phone: [facility] Work Phone: 2003 diphtheria, tetanus toxoids and acellular pertussis vaccine, unspecified formulation Kimberli Raymundo MD Work Phone: [facility] 2003 haemophilus influenz ae type b vaccine, PRP-T conjugate Kimberli Raymundo MD Work Phone: [facility] Work Phone: 2003 pneumococcal conjuga te vaccine, 7 valent Kimberli Raymundo MD Work Phone: [facility] 2003 poliovirus vaccine, inactivated Kimberli Raymundo MD Work Phone: [facility] 2003 diphtheria, tetanus toxoids and acellular pertussis vaccine, unspecified formulation Kimberli Raymundo MD Work Phone: [facility] 2003 haemophilus influenz ae type b vaccine, PRP-T conjugate Kimberli Raymundo MD Work Phone: [facility] Work Phone: 2003 pneumococcal conjuga te vaccine, 7 valent Kimberli Raymundo MD Work Phone: [facility] 2003 poliovirus vaccine, inactivated Kimberli Raymundo MD Work Phone: [facility] Payers Date Payer Category Payer Medicaid MEDICAID [facility] MEDICAID [id number] 2023-Present [phone] [address] [place] [address] Medicaid [id number] 2023 Medicaid [id number] 2022 Unknown [id number] 2022 Unknown [employer] PPO [id number] 2022-Present [phone] [address] [place] [address] PPO [id number] 2022 Unknown [id number] 2003 Unknown [id number] 2003 Unknown [id number] Social History Date Type Detail Facility Start: 10-09-2019 End: 01-15-2024 Tobacco smoking status Never smoked tobacco (finding) [facility] Sex Assigned At Sex [facility] [place] [facility] End: 05-26-2016 History of tobacco use Cigarette Smoker [facility] Start: 01-01-2024 End: 01-15-2024 Tobacco use and exposure Smokeless tobacco non-user [facility] Start: 01-01-2024 End: 01-15-2024 Alcohol intake Current non-drinker of alcohol (finding) [facility] Start: 10-14-2020 End: 01-01-2024 History of Social function [facility] Start: 10-14-2020 End: 01-01-2024 Tobacco use panel [facility] National Score (1-100), lower number is lower risk Not on file [facility] Start: 2003 Sex Assigned At Not on file [facility] Start: 01-11-2024 Education 13 [facility] Start: 12-02-2023 [facility] NEGATED: Highlighted rowStart: NINF History of tobacco use Passive smoker [facility] Goals Date Patient Goal Desired Activity /State Personal health goal Functional Status Date Assessment Result Facility 01-16-2024 Functional Status Independent [facility] 01-16-2024 Functional Status Standard Safet y ID band on, Call device within reach, Bed in low position, Wheels locked, Upper/Half-Length side-rails up, Bedside Cart Locked, Visitor at bedside, Safety level maintained [facility] 10-25-2022 Functional Status Standard Safet y Call device within reach, Bed in low position, Wheels locked, Safety level maintained [facility] 10-25-2022 Functional Status [facility] Mental Status Date Assessment Result Facility 01-16-2024 Mental Status Orientation Oriented x 4 [facility] 01-16-2024 Mental Status [facility] 10-25-2022 Mental Status Orientation Oriented x 4 [facility] Clinical Notes 09-20-2016 to 01-17-2024 Telephone Encounter - Jazmine Grey RN - 01/16/2024 2:04 PM EDTTelephone Encounter - Cielo Lee RN - 01/16/2024 1:47 PM Catie Thayer APRN.TOY CONSULTANT - 01/15/2024 12:02 PM EDT Note Date & Type Note Facility 01-17-2024 Hospital Discharg e instructions Patient Education 01/16/2024 22:07:24 Hyperemesis Gravidarum Hyperemesis Gravidarum Hyperemesis gravidarum is a severe form of morning sickness that can affect some women during . It may develop around the 5th week and last until the 16th week of . In some women, it may last longer. Symptoms include severe nausea and vomiting. This can lead to problems such as weight loss and dehydration. It's not clear what causes hyperemesis gravidarum. It may be from rising hormone levels early in the . It can be a serious threat to mother and fetus if symptoms are severe. Follow the advice below carefully. If your symptoms don't get better with home care measures, you may need to stay in the hospital. In the hospital, you may get IV (intravenous) fluids and medicines. Home care Diet Keep a log of the foods you eat and how they affect your symptoms. Don't eat foods that trigger your symptoms. Eat small meals often throughout the day rather than 3 large meals. This can help keep your stomach from being empty. An empty stomach can make nausea worse. Choose foods that are high in carbohydrates. Eating foods high in protein may also help. Limit greasy or spicy foods. Before getting out of bed in the morning, try eating crackers or dry toast. This may help settle your stomach. Drink cold, clear liquids. Drinking small amounts of liquids with electrolytes, such as sports drinks, may help as well. Medicine If needed, your healthcare provider may prescribe certain medicines to help ease nausea and vomiting. Your provider may suggest vitamin B6 and cristina. Don t try any mjce-upn-aaflluo medicines or home remedies without talking with your provider first. Follow-up care Follow up with your healthcare provider, or as advised. When to seek medical advice Call your healthcare provider right away if any of these occur: Signs of dehydration. These include dry mouth, extreme thirst, dark urine or little urine output, dizziness, weakness, or fainting. Vomiting that won t stop Inability to keep down liquids Frequent diarrhea Weight loss or no weight gain over a 2-week period Severe constant pain in the lower right abdomen Fever of 100.4 F (38 C) or higher, or as directed by your healthcare provider [id number] [employer]. [address] [place] [address]. All rights reserved. This information is not intended as a substitute for professional medical care. Always follow your healthcare professional's instructions. Follow Up Care 01/16/2024 20:02:52 With:Your OBGYN Address: When:2-4 days [facility] 01-16-2024 Emergency department Discharge summary Discharge Instructions Thank you for allowing [facility] to assist you with your healthcare needs. The following is important discharge information regarding your hospital visit. Diagnosis from Today's Visit Intractable nausea and vomiting Morning sickness Vomiting - What to Do Next Instructions from Your Care Team No qualifying data available. Post Acute Orders No qualifying data available. You Need to Schedule the Following Appointments Follow Up with Your OBGYN When Within 2-4 days Where: Allergies NKA Medications Please ask your primary doctor or pharmacist before taking any other medication not listed, including over the counter drugs, herbal medications, vitamins and or supplements as they may interact with your home medications. What How Much When Why Instructions Last Dose Unchanged etonogestrel (Nexplanon 68 mg subcutaneous implant) [...] medication providers or retail pharmacies. Education [employer] Hyperemesis Gravidarum Hyperemesis gravidarum is a severe form of morning sickness that can affect some women during . It may develop around the 5th week and last until the 16th week of . In some women, it may last longer. Symptoms include severe nausea and vomiting. This can lead to problems such as weight loss and dehydration. It's not clear what causes hyperemesis gravidarum. It may be from rising hormone levels early in the . It can be a serious threat to mother and fetus if symptoms are severe. Follow the advice below carefully. If your symptoms don't get better with home care measures, you may need to stay in the hospital. In the hospital, you may get IV (intravenous) fluids and medicines. Home care Diet Keep a log of the foods you eat and how they affect your symptoms. Don't eat foods that trigger your symptoms. Eat small meals often throughout the day rather than 3 large meals. This can help keep your stomach from being empty. An empty stomach can make nausea worse. Choose foods that are high in carbohydrates. Eating foods high in protein may also help. Limit greasy or spicy foods. Before getting out of bed in the morning, try eating crackers or dry toast. This may help settle your stomach. Drink cold, clear liquids. Drinking small amounts of liquids with electrolytes, such as sports drinks, may help as well. Medicine If needed, your healthcare provider may prescribe certain medicines to help ease nausea and vomiting. Your provider may suggest vitamin B6 and cristina. Don t try any kuhw-flq-jinqike medicines or home remedies without talking with your provider first. Follow-up care Follow up with your healthcare provider, or as advised. When to seek medical advice Call your healthcare provider right away if any of these occur: Signs of dehydration. These include dry mouth, extreme thirst, dark urine or little urine output, dizziness, weakness, or fainting. Vomiting that won t stop Inability to keep down liquids Frequent diarrhea Weight loss or no weight gain over a 2-week period Severe constant pain in the lower right abdomen Fever of 100.4 F (38 C) or higher, or as directed by your healthcare provider [phone] [employer]. [address] [place] [address], [place] [address]. All rights reserved. This information is not intended as a substitute for professional medical care. Always follow your healthcare professional's instructions. Additional Information VACCINATE! IT SAVES LIVES! Members of the community who have not yet received the COVID-19 vaccine and would like to receive it can visit one of [facility] vaccine clinics. There are many vaccine clinic locations within the [facility]. For locations and available times, please visit [email or web address] It is important to note that some COVID mobile vaccine clinics are held outdoors and may be canceled in rainy or stormy conditions. To learn more about pediatric vaccinations (ages 5-11), we invite you to visit the [facility] webpage. [email or web address] To learn more about the COVID-19 vaccine, we invite you to visit the CDC website for a list of frequently asked questions. https://www.cdc.gov/coronavirus/ 2019-ncov/vaccines/faq.html [facility] [employer] Patient Portal Access Instructions: Stay connected with your healthcare team and access your personal medical information anytime with the [facility] Patient Portal. If you would like a full copy of your medical records please contact the [facility] Medical Records Department Monday through Monday between 8a.m. and 4:30p.m. Please follow the directions below to access the portal: 1.Access the email account you provided upon registration to the hospital.2.Look for an invitation email from [facility].3.Open the email and access the invitation link: Accept Invitation to [facility]4.Fill in the required donahue to create your account. Sign into www.[employer] with your username and password that you [...] you will allow to register on the [facility] Patient Portal for access to your information. You can also access the [employer] [facility] Patient Portal on the [employer] katina. Simply click on Health Records under Health Data and then click on the [facility] logo. HOW TO SAFELY DISPOSE OF PRESCRIPTION [...] Call your local pharmacy or go to [email or web address] to find one close to you.3.Make use of household items: Use cat litter or old coffee grounds to dispose medications if other options are not available. Mix your drugs with these household products, seal them in an airtight container and throw it into the garbage. Call [facility]: [phone] to be sure your drugs can be [...] a CHART COPY Signatures Patient Education Materials Hyperemesis Gravidarum Medication Leaflets My discharge plan and instructions have been reviewed and explained to me and IMIREILLE ASHLEY M understand my current condition and have read and understand these discharge instructions. I have received a written copy of the plan/instructions. If I have questions, I am aware that I should contact my doctor. 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 She is in ED now and scheduled for f/u . Jazmine Grey RN Left message to call office. Cielo Lee RN Yes, if patient is going to ED today, which I recommend, please have her follow up or Monday. Thank you, Jackie Candelaria APRN.CNM Patient 8w3d calling with extreme nausea and vomiting. States she has vomited 15 times since 5 am and continues to vomit stomach acid now. Patient states she is unable to keep any fluids down. She tried taking her Zofran that was prescribed yesterday and states she has taken 4 since 4:30 AM. Patient states she knows she shouldn't take that many. Reviewed how and when to take the medication with patient. Patient states she is going to go to ER again for IV hydration because her stomach hurts so bad from puking. Patient also states she tried the rectal phenergan but it just makes her more nauseated. FYI. Do you want patient to follow up in the office this week? Cielo Lee RN documented in this encounter [facility] 01-15-2024 Note HNO ID: [id number] Author: CATIE MONTES APRN.CNP Service: ? Author Type: Nurse Practitioner Type: Progress Notes Filed: 01/15/2024 12:02 Note Text: OB point of care ultrasound was performed. See imaging tab for details. Catie Montes APRN.CNP [facility] 01-15-2024 Note HNO ID: [id number] Author: CATIE MONTES APRN.CNP Service: ? Author Type: Nurse Practitioner Type: Progress Notes Filed: 01/15/2024 12:15 Note Text: Traveling Operator offered: Patient declines. INITIAL OB ASSESSMENT HPI: Miladys is a 19 year old White here to establish Obstetrical Care. Patient's last menstrual period was 11/18/2023 (approximate). from OB Dating Form. was unplanned but accepted Complaints: No OB History T1 L1 SAB0 IAB0 Ectopic0 Multiple0 Live Births1 Previous history: Prior : never History of 4th degree laceration: No History of shoulder dystocia: No History of Hypertensive disorders including pre-eclampsia or gestational hypertension: No History of gestational diabetes: No Patient's Risk Screening for delivery: Have you had a prior krueger between 20w and 36w6d? No How many pregnancies have you had before? 1 Did you have a previous baby with a GBS Infection? No Please select all that apply for any prior : N/A MEDICAL/PSYCHOSOCIAL HISTORY: History of hemorrhage or bleeding concerns: No Thyroid Disease: No History of chronic hypertension: No History of pre-existing diabetes: No ABO/RH(D) Date Value Ref Range Status 07/27/2016 A POSITIVE Final BMI 38.90 kg/(m2) Last Pap: History of abnormal pap: No Prior treatment for cervical dysplasia: none. History of STDs: None Partner History of STDs: None Did you have a partner with Herpes? No Tobacco use: No E-Cigarette/Vaping Use: No Caffeine use: Yes Drug use: No Alcohol use: No Multivitamin with Folic acid: Yes Would refuse blood transfusion if medically necessary: No Social Needs: How often does this describe you? I don't have enough money to pay my bills: Never Within the past 12 months, have you worried that your food would run out before you had money to buy more? Never In the past 12 months, has lack of reliable transportation kept you from going to medical appointments or work, or from getting things needed for daily living? Never In the past 12 months, have you had any concerns about having a place to live, or about the condition or quality of your housing? Never Social History: Do you have any history of depression, anxiety, PTSD, or other mood problems? No Do you have a history of abuse or trauma that may impact your experience? No Are you currently employed? No Depression/Anxiety Screening: denies symptoms of depression. OB Depression and Anxiety Screening- This Encounter (since 01/14/2024) Over the past 2 weeks have you felt down, depressed, or hopeless? Negative Over the past two weeks, have you felt little interest or pleasure in doing things?? Negative Feeling nervous, anxious or on edge 0-Not at all Not being able to stop or control worrying 0-Not al all Anxiety Pre-Screening Total (If >/= 3 additional questions will be reviewed) 0 Genetic Screening: Partner present: Yes Patient verbalized knowledge of partner family health history: Yes Do you or your partner have any personal or family history of defects not previously discussed: No Do you have history of a complicated by anomaly, genetic condition, or demise: No ACOG Recommended Screening: Screening for early gestational diabetes testing: Criteria for early testing requires elevated BMI plus one other risk factor: BMI 38.90 kg/(m2) (risk factor if > than 25 or 23 in Americans) Additional risk factors: None She does not meet ACOG criteria for early gestational DM screening. Screening for low dose aspirin use for the prevention of pre-eclampsia: Low dose aspirin should be considered if the patient has one high or two moderate risk factors: High risk factors: None Moderate risk ractors: Obesity (body mass index greater than 30) She does not meet criteria for low dose ASA OB Risk Screening: Completed, positive findings include: Patient will be less than 17 or greater than 34 at the time of Delivery Marital Status:Single Partner: Name: Nikolai Age: 21 Occupation: Unemployed Gender: Male PAST MEDICAL HISTORY Diagnosis Date Complication of anesthesia vomiting after surgery Depression PAST SURGICAL HISTORY Procedure Laterality Date LAPAROSCOPY SURG CHOLECYSTECTOMY 11/06/2014 Cholecystectomy, lap NEXPLANON INSERTION 03/27/2017 NEXPLANON REMOVAL 2020 Current Outpatient Medications Medication Sig Dispense Refill promethazine HCl (PHENERGAN RECTAL) by RECTAL route as needed. PNV no.95/ferrous fum/folic ac ( ORAL) Take by mouth. ondansetron orally disintegrating (ZOFRAN ODT) 4 mg disintegrating tablet Take 1 tablet by mouth every 8 hours as needed for nausea/vomiting. 90 tablet 3 No current facility-administered medications for this visit. Allergies As of Date: 01/15/2024 Allergen Noted Reaction MORPHINE 01/11/2024 GI Upset (more content not included)... [facility] 01-15-2024 History of Presen t illness Narrative OB point of care ultrasound was performed. See imaging tab for details. Catie Montes APRN.TOY CONSULTANT documented in this encounter [facility] 01-15-2024 History of Presen t illness Narrative Traveling Operator offered: Patient declines. INITIAL OB ASSESSMENT HPI: Miladys is a 19 year old White here to establish Obstetrical Care. Patient's last menstrual period was 11/18/2023 (approximate). from OB Dating Form. was unplanned but accepted Complaints: No OB History T1 L1 SAB0 IAB0 Ectopic0 Multiple0 Live Births1 Previous history: Prior : never History of 4th degree laceration: No History of shoulder dystocia: No History of Hypertensive disorders including pre-eclampsia or gestational hypertension: No History of gestational diabetes: No Patient's Risk Screening for delivery: Have you had a prior krueger between 20w and 36w6d? No How many pregnancies have you had before? 1 Did you have a previous baby with a GBS Infection? No Please select all that apply for any prior : N/A MEDICAL/PSYCHOSOCIAL HISTORY: History of hemorrhage or bleeding concerns: No Thyroid Disease: No History of chronic hypertension: No History of pre-existing diabetes: No ABO/RH(D) Date Value Ref Range Status 07/27/2016 A POSITIVE Final BMI 38.90 kg/(m^2) Last Pap: History of abnormal pap: No Prior treatment for cervical dysplasia: none. History of STDs: None Partner History of STDs: None Did you have a partner with Herpes? No Tobacco use: No E-Cigarette/Vaping Use: No Caffeine use: Yes Drug use: No Alcohol use: No Multivitamin with Folic acid: Yes Would refuse blood transfusion if medically necessary: No Social Needs: How often does this describe you? I don't have enough money to pay my bills: Never Within the past 12 months, have you worried that your food would run out before you had money to buy more? Never In the past 12 months, has lack of reliable transportation kept you from going to medical appointments or work, or from getting things needed for daily living? Never In the past 12 months, have you had any concerns about having a place to live, or about the condition or quality of your housing? Never Social History: Do you have any history of depression, anxiety, PTSD, or other mood problems? No Do you have a history of abuse or trauma that may impact your experience? No Are you currently employed? No Depression/Anxiety Screening: denies symptoms of depression. OB Depression and Anxiety Screening- This Encounter (since 01/14/2024) Over the past 2 weeks have you felt down, depressed, or hopeless? Negative Over the past two weeks, have you felt little interest or pleasure in doing things? Negative Feeling nervous, anxious or on edge 0-Not at all Not being able to stop or control worrying 0-Not al all Anxiety Pre-Screening Total (If >/= 3 additional questions will be reviewed) 0 Genetic Screening: Partner present: Yes Patient verbalized knowledge of partner family health history: Yes Do you or your partner have any personal or family history of defects not previously discussed: No Do you have history of a complicated by anomaly, genetic condition, or demise: No ACOG Recommended Screening: Screening for early gestational diabetes testing: Criteria for early testing requires elevated BMI plus one other risk factor: BMI 38.90 kg/(m^2) (risk factor if > than 25 or 23 in Americans) Additional risk factors: None She does not meet ACOG criteria for early gestational DM screening. Screening for low dose aspirin use for the prevention of pre-eclampsia: Low dose aspirin should be considered if the patient has one high or two moderate risk factors: High risk factors: None Moderate risk ractors: Obesity (body mass index greater than 30) She does not meet criteria for low dose ASA OB Risk Screening: Completed, positive findings include: Patient will be less than 17 or greater than 34 at the time of Delivery Marital Status:Single Partner: Name: Nikolai Age: 21 Occupation: Unemployed Gender: Male PAST MEDICAL HISTORY Diagnosis Date Complication of anesthesia vomiting after surgery Depression PAST SURGICAL HISTORY Procedure Laterality Date LAPAROSCOPY SURG CHOLECYSTECTOMY 11/06/2014 Cholecystectomy, lap NEXPLANON INSERTION 03/27/2017 NEXPLANON REMOVAL 2020 Current Outpatient Medications Medication Sig Dispense Refill promethazine HCl (PHENERGAN RECTAL) by RECTAL route as needed. PNV no.95/ferrous fum/folic ac ( ORAL) Take by mouth. ondansetron orally disintegrating (ZOFRAN ODT) 4 mg disintegrating tablet Take 1 tablet by mouth every 8 hours as needed for nausea/vomiting. 90 tablet 3 No current facility-administered medications for this visit. Allergies As of Date: 01/15/2024 Allergen Noted Reaction MORPHINE 01/11/2024 GI Upset Fully Assessed 01/15/2024 Does patient have penicillin allergy: No REVIEW OF SYSTEMS: GENERAL: Negative for: Fever or Chills HEENT: Negative for: Headache, Impaired Vision, Ringing in Ears, Nosebleeds NECK: Negative for: Swelling, Pain, Stiffness RESPIRATORY: Negative for: Cough, Shortness of breath, Wheezing GASTROINTESTINAL: Negative for: Heartburn Diarrhea, Blood in stool + constipation and nausea MUSCULOSKELETAL: Negative for: Muscle or joint pain, stiffness, Joint swelling NEUROLOGIC/PSYCHIATRIC: Negative for: Weakness, Paralysis, Numbness, Tingling, Tremor, Anxiety, Depression, Memory loss SKIN: Negative for: Rash, Itching GENITOURINARY: Negative for: vaginal itching, vaginal discharge, hematuria or dysuria PHYSICAL EXAM: BP 124/66 Ht 5' 5.75 (1.67m) Wt 239 lb 3.2 oz (108.5kg) LMP 11/18/2023 BMI 38.90 kg/(m^2). GENERAL: pleasant in no apparent distress DERMATOLOGY: Normal, without lesions, non-icteric, and non-hirsute NECK: Supple, full range of motion, no adenopathy, and thyroid normal CHEST: Normal inspiratory effort BREAST: soft, non-tender, symmetric, no dominant mass, normal nipple-areolar complex, no lymphadenopathy, and no nipple discharge ABDOMEN: soft, non-tender, and no masses NEURO: alert and oriented x3,exam grossly non-focal PELVIS: External genitalia normal without lesions. Perineal body intact. No vaginal or cervical lesions. Cervix closed. Uterus 8 week size. No adnexal masses or tenderness. Clinical Pelvimetry: Pelvimetry clinically assessed as adequate Limited OB ultrasound exam: single intrauterine and positive cardiac activity ASSESSMENT: 19 year old at 8w2d wks gestational age PLAN: 1) Patient oriented to practice. Patient given new OB orientation folder. Discussed nutrition, folic acid supplementation, dietary guidelines, exercise, smoking, alcohol, caffeine, and drug use. Discussed gestational weight gain guidelines. Discussed routine OB labs including STD/HIV. Discussed how to access Your guide to a health and the Autopsy Assistant. Discussed aneuploidy screening, nuchal translucency/first trimester early anatomy ultrasound and NIPT. The risks/benefits and limitations of NIPT/aneuploidy screening were reviewed including the potential for false negative and false positive results. The availability of genetic counseling was reviewed. Information on aneuploidy screening was provided. The patient chooses to proceed with First trimester early anatomy ultrasound (12-13w6d). Checking with insurance about [email or web address]. Discussed myriad carrier screening. We discussed the availability of professional-society guided carrier screening and reviewed the conditions screened and limitations of screening. The availability of genetic counseling was reviewed. Information on carrier screening was provided. The patient Accepts Discussed hemoglobin electrophoresis. Patient: Declines Reviewed midwifery and aboriginal community council member services that are available. 2) Patient offered option of Virtual Visits. Patient unsure. May consider in future. ACTIVE PROBLEM LIST Encounter for Supervision of High Risk in First Trimester, Antepartum - 01/15/2024 Comment: Care Checklist Vaccines: [ ] Flu vaccine [ ] declined [ ] RSV vaccine 32 0/7 - 36 6/7 (Jul - Dec) [ ] declined [ ] COVID vaccine [ ] declined [ ] TDaP 27-36 [ ] declined First trimester: [X] Dating US [ ] 1st tri labs [X] Pap smear [X] Carrier screening [ ] declined [ ] NIPT screening - checking with insurance [ ] declined [X] First trimester anatomy scan [ ] declined [ ] ASA ppx indicated [ ] not indicated [ ] M Power Consult [ ] not indicated [ ] declined Second trimester: [ ] AFP [ ] declined [ ] Anatomy scan [ ] Mode of Delivery - [ ] Feeding - [ ] Pump ordered [ ] Diabetes screen [ ] CBC, RPR Third trimester (28-30 weeks): [ ] Consent [ ] 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 Reviewed signs of torsion and when to go to ER. Obesity Affecting in First Trimester - 01/15/2024 Comment: Pre BMI 38 Plan for 32 week growth q 4 weeks. Weekly NSTs at 36 weeks. Recommend LDA at 12 weeks. Nausea/Vomiting in - 01/01/2024 Comment: 01/15/24 Nausea improving with Zofran use. - Discussed Vitamin B6 and Unisom as first line therapy - Reviewed risks of Zofran in 1st trimester - small studies show increased risk for cardiac defects, cleft lip/palate - Written information provided via patient instructions about nausea and Zofran use - Rx for Zofran provided in the event that Vitamin B6/Unisom is ineffective - To notify if > 24 hours without food or water Catie Montes APRN.TOY CONSULTANT Constipation During in First Trimester - 01/15/2024 Comment: Reviewed increased water intake and Colace. Family History of Diabetes Mellitus - 01/15/2024 Comment: FOB with type 1 Diabetes. Follow up for NT scan and OB visit. Catie Montes APRN.TOY CONSULTANT OB point of care ultrasound was performed. See imaging tab for details. Blade Torres LPN documented in this encounter [facility] 01-15-2024 Note HNO ID: [id number] Author: BLADE TORRES LPN Service: ? Author Type: LICENSED NURSE Type: Progress Notes Filed: 01/15/2024 12:15 Note Text: OB point of care ultrasound was performed. See imaging tab for details. Blade Torres LPN [facility] 01-11-2024 Instructions Catie Montes APRN.[facility] 01/11/2024 11:25 AM EST Please select the following link to access the [facility] Your Guide to a Healthy . [email or web address] Please select the following link to access the [facility] Your Guide to a Healthy . [email or web address] Please select the following link to access the [facility] Your Guide to a Healthy . [email or web address] MORNING SICKNESS IN by Itzel Chin M.D. for [employer] As you may already know, morning sickness can often be more appropriately called evening sickness or jaauy-jlbipx-nr-the-day sickness. While there are the marisela few, most women (50-90%) experience some degree of nausea, some have vomiting, and a few develop a severe form of vomiting during called hyperemesis gravidarum. What causes the nausea and vomiting of ? We can't explain why some people feel fine and others are green for months. Even the same woman may feel vastly different in each . There is some relationship between nausea and the level of the hormone hCG. In twin pregnancies, and in other situations where the hCG is greater than expected, nausea and vomiting tend to be worse. In a destined for miscarriage, hCG levels tend to be low, and nausea is often less severe. This being said, a lack of nausea doesn't guarantee that the is destined for miscarriage. The fact that nausea and vomiting are often signs of a healthy can offer a silver lining in the dark cloud of miserable nausea. How long will the nausea last? Fortunately, for most women, nausea and vomiting are a first trimester event, peaking at week 9-10 and waning by week 14-16. When you are feeling bad the weeks can go by slowly but most moms do feel tremendously better by the middle of the . Whether morning sickness is a brief experience or lasts through most of the , there are treatments that can make the weeks or months more tolerable. What can you do about it? Diet: See what works for you. Try eating bland dry foods, and avoid fatty or spicy foods. It is okay to eat a less than perfectly balanced diet in the first trimester. Have your liquids separately from dry foods. Try sports drinks, water, clear juices, Kaveh-aid, or non-caffeinated tea. Avoid carbonated beverages that fill up your stomach. Try eating lots of little meals. If you tend to feel sick when you first wake up, leave crackers next to the bed for a quick snack before rising. Keeping healthy snacks with you all day to nibble when you feel queasy can sometimes even prevent nausea from starting. vitamins and nausea: Pre-susan vitamins can sometimes worsen nausea in . While folate is necessary, especially early in the , it comes as a smaller pill that many people find more tolerable than the complete vitamin pill. Ask your practitioner if it is okay to temporarily replace vitamins and iron with just a folate pill if you find a significant worsening in the level of your nausea from the vitamins. Alternative therapies: Acupressure may be used to treat nausea in , and is not known to have any risks for the fetus. Wristbands (marketed for seasickness) that put pressure on an acupressure point at the wrist are often available at drugstores or travel stores. Cristina root is used for nausea in many traditional cultures. Some women take fresh grated cristina or cristina tablets. It is possible that the pill form contains other ingredients or contaminants, so you may want to try fresh cristina first. Medications: Emetrol is the only nausea medication approved for use in . It is available over the counter and is soothing to the stomach. A prescription medication called Bendectin was available in the 1970s-1979's and was shown to be safe in , but the company stopped marketing it in the [place] due to the costs of liability coverage. Bendectin contained 10 milligrams of vitamin B6 and 10 milligrams of Doxylamine. Two tablets were given at bedtime and a total of up to 4 tablets could be used in a 24-hour period. Interestingly, Unisom , which contains a higher dose (25 mg.) of the same medication, Doxylamine, is currently marketed as an jvcv-eis-qiimztf sleeping pill. Ask your practitioner if creating a vitamin B6/Doxylamine combination with lugg-ffk-gzgbbpp medications would be safe for you. Prescription medications like Compazine and Phenergan can be used if the benefits outweigh possible risks, but these have not been clearly shown to be safe in . Zofran , an expensive anti-nausea medication often used to treat nausea from chemotherapy, can also be used. Can I throw up so much it harms the baby? The act of vomiting cannot hurt your fetus, which is protected inside the uterus. If you get dehydrated or develop a metabolic imbalance, this can be unhealthy. As long as you can keep down liquids, you and your baby will generally do all right. Eat when you feel able. If you are unable to keep anything down, or if you notice potential signs of dehydration such as lightheadedness, or concentrated and/or infrequent urination, call your practitioner. Some women need brief hospital admission for intravenous fluids and anti-nausea medications if their condition becomes severe. This severe form of nausea and vomiting is called Hyperemesis Gravidarum. As with many symptoms of , remind yourself that this, too, shall pass, and you'll have a wonderful baby to show for it! TREATMENT OPTIONS, SHORT VERSION: Frequent small meals Hydrate throughout day [employer]ands wrist pressure point applicators Cristina root (powdered, in capsules) 250mg four times a day Vitamin B6 25 mg tablet three times a day Also may be taken with half a tablet of Unisom three times a day (Doxylamine 12.5 mg) If severe (weight loss, dehydration), call us and come in for IV hydration and possible medication in the form of injections. Prescription medications such as Phenergan, Compazine, Reglan documented in this encounter [facility] 2024 Miscellaneous Notes Pt voiced understanding and is on her way in to have lab work drawn today. Pt will then have front desk manager staff schedule her follow up ultrasound. Pt reports that she is having some slight cramping. Blade Torres LPN I am sorry this happened on her birthday! Yes repeat quant ordered. Is she having any pain? Schedule formal US for next week but call us if pain or heavier bleeding. Jocelynn Aariza MD LMP 11/17 hCG Quantitative, Blood Date Value 12/29/2023 2,007.0 mIU/mL 12/28/2023 1460 Patient called because she went to the bathroom and noted blood when she wiped. Light amount. Denies cramping or pain. Patient tearful on phone. Would you like her to have another hCG quant done? NOB is 01/14. Reviewed bleeding precautions. Valentina Falcon RN documented in this encounter [facility] 01-01-2024 Note HNO ID: [id number] Author: CATIE MONTES APRN.TOY CONSULTANT Service: ? Author Type: Nurse Practitioner Type: Progress Notes Filed: 01/01/2024 13:44 Note Text: Miladys Hearn is a 18 year old female who presents for problem visit of nausea and vomiting. HPI: Miladys is in her first trimester of . She is throwing up about 5 times per day. She has been taking a family member's Zofran prescription to help with the nausea. Intrauterine was confirmed with an ER visit. She is able to eat and drink. 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 History Comments: Sexual Activity: No sexual activity data on record; No partner data on record Contraception: No contraception data on record PAST MEDICAL HISTORY Diagnosis Date Complication of anesthesia vomiting after surgery Depression PAST SURGICAL HISTORY Procedure Laterality Date LAPAROSCOPY SURG CHOLECYSTECTOMY 11/06/2014 Cholecystectomy, lap NEXPLANON INSERTION 03/27/2017 FAMILY HISTORY Problem Relation Age of Onset Hypertension Father Hypertension Maternal Grandmother Breast Cancer Maternal Aunt Diabetes Paternal Grandfather Prostate Cancer Paternal Grandfather Psychiatry Maternal Uncle Psychiatry Maternal Aunt Psychiatry Maternal Aunt Seizures Maternal Aunt Social History Tobacco Use Smoking status: Never Smokeless tobacco: Never Vaping Use Vaping Use: Never used Substance Use Topics Alcohol use: No Drug use: No Current Outpatient Medications Medication Sig pantoprazole DR (PROTONIX) 40 mg tablet Take 1 tablet by mouth once daily. ondansetron orally disintegrating (ZOFRAN ODT) 4 mg disintegrating tablet dissolve 1 tablet ON TONGUE every 8 hours if needed for nausea norgestimate 0.25 mg-ethinyl estradiol 35 mcg (SPRINTEC) 0.25-35 mg-mcg per tablet Take 1 tablet by mouth once daily. No current facility-administered medications for this visit. Allergies As of Date: 01/01/2024 (No Known Allergies) Fully Assessed 11/16/2021 REVIEW OF SYSTEMS Abdomen: No bloating, early satiety, indigestion, or increased flatulence. No abdominal pain, diarrhea, or constipation. + nausea and vomiting Bladder: No dysuria, gross hematuria, urinary frequency, urinary urgency, or incontinence. Breast: No breast lumps, nipple d/c, overlying skin changes, redness or skin retraction. Expanded ROS: N/A Allergies and current medication updated:Yes EXAM: BP 122/82 Wt 238 lb (108.0kg) LMP 10/18/2023 GENERAL: pleasant, female in no apparent distress HEENT: Normocephalic, atraumatic, mucus membranes moist, and no lesions NECK: Supple, full range of motion, no adenopathy, and thyroid normal DERMATOLOGY: Normal, without lesions, non-icteric, and non-hirsute CHEST: Normal inspiratory effort NEURO: alert and oriented x3,exam grossly non-focal EXTREMITIES: normal ASSESSMENT AND PLAN: 1. Nausea/vomiting in - ICD9: 643.90, ICD10: O21.9 - Discussed Vitamin B6 and Unisom as first line therapy - Reviewed risks of Zofran in 1st trimester - small studies show increased risk for cardiac defects, cleft lip/palate - Written information provided via patient instructions about nausea and Zofran use - Small frequent meals and cold sips of water recommended - Rx for Zofran provided in the event that Vitamin B6/Unisom is ineffective - To notify if > 24 hours without food or water Catie Montes APRN.NITZA Medical Decision Making: Problems: Low: Acute, uncomplicated illness or injury Risk: Low: Low risk from testing/treatment Moderate: Drug management Medical Decision Making Level: 3 - Low [facility] 01-01-2024 Miscellaneous Notes Patient called. Reviewed her Hcg quants on FIXO. She continues to have N/V. Reviewed recommendations sent in previous FIXO message. Again, advised to go to ER if she is unable to keep any food/fluids down in 24 hours. Scheduled her for a New OB on 01/14. hCG Quantitative, Blood Date Value 12/29/2023 2,007.0 mIU/mL 12/28 hcg quant was 1460 Attempted to call patient. Unable to leave message because received message that wireless customer is not available and to please try again later. Angela Lua RN Needs repeat HCG quant 48 hrs from draw. Start Vitamin B6 and Unisom for nausea. Give torsion precautions. To have NOB scheduled Patient calling to schedule ER f/u. LMP 11/18, but only bled 2 days and was not normal for her. She was having significant right sided pain and n/v yesterday. With menses being late and symptoms she took UPT and it was positive so she went to [facility] ER. She is not having any pain this morning. No fever. Does have nausea/vomiting since 4am again. States that occurs every morning for the last few days and her appetite has been minimal. ER u/s showed intrauterine - yolk sac but no pole and 5.5cm right ovarian cyst. 12/28 hcg quant was 1460. ER records to SW to view. Please advise what follow up she needs. NOB will need scheduled too. Angela Lua RN documented in this encounter [facility] 10-25-2022 Hospital Discharg e instructions Patient Education [...] The opening where stool leaves the body. [id number] The [employer]. [address] [place] [address]. All rights reserved. This information is not intended as a substitute for professional medical care. Always follow your healthcare professional's instructions. Follow Up Care 10/25/2022 14:26:13 With:DUSTY POSADA MD Address: [address] [facility] [facility] [address] [place], [place] [id number]- [facility]:2[facility] Note Discharge Instructions Thank you for allowing [facility] to assist you with your healthcare needs. The following is important discharge information regarding your hospital visit. Diagnosis from Today's Visit Abdominal pain COVID-19 Epiploic appendagitis Dizziness Urinary Incontinence Vomiting What to Do Next Instructions from Your Care Team No qualifying data available. Post Acute Orders No qualifying data available. You Need to Schedule the Following Appointments Follow Up with DUSTY POSADA MD When Within 2-4 days [facility] [address] [facility] [address] [place] [address]- Allergies NKA Medications Please ask [...] The opening where stool leaves the body. [phone] [employer]. [address] [place] [address]. All rights reserved. This information is not intended as a substitute for professional medical care. Always follow your healthcare professional's instructions. Additional Information VACCINATE! IT SAVES LIVES! Members of the community who have not yet received the COVID-19 vaccine and would like to receive it can visit one of [facility] vaccine clinics. There are many vaccine clinic locations within the [facility]. For locations and available times, please visit [email or web address]. It is important to note that some COVID mobile vaccine clinics are held outdoors and may be canceled in rainy or stormy conditions. To learn more about pediatric vaccinations (ages 5-11), we invite you to visit the [facility] webpage. [email or web address] To learn more about the COVID-19 vaccine, we invite you to visit the [facility] website for a list of frequently asked questions. [email or web address] aki-[email or web address] requently_[email or web address] [facility] Patient Portal Access Instructions: Stay connected with your healthcare team and access your personal medical information anytime with the [facility] Patient Portal. If you would like a full copy of your medical records please contact the [facility] Medical Records Department Monday through Monday between 8a.m. and 4:30p.m. Please follow the directions below to access the portal: 1.Access the email account you provided upon registration to the [facility].2.Look for an invitation email from [facility].3.Open the email and access the invitation link: Accept Invitation to [facility]4.Fill in the required donahue to create your account. Sign into www.[email or web address] with your username and password that you [...] you will allow to register on the [facility] Patient Portal for access to your information. You can also access the [facility] Patient Portal on the [employer]. Simply click on Health Records under Health Data and then click on the [employer] logo. HOW TO SAFELY DISPOSE OF PRESCRIPTION [...] Call your local pharmacy or go to [email or web address] to find one close to you.3.Make use of household items: Use cat litter or old coffee grounds to dispose medications if other options are not available. Mix your drugs with these household products, seal them in an airtight container and throw it into the garbage. Call [facility]: [phone] to be sure your drugs can be [...] been reviewed and explained to me and IMIREILLE ASHLEY M understand my current condition and have read and understand these discharge instructions. I have received a written copy of the plan/instructions. If I have questions, I am aware that I should contact my doctor. 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: Date/Time: Relationship to Patient: Witness Name/Signature: Date/Time: [facility] 10-25-2022 Note ORIGINAL EXAMINATION: CT OF THE [...] Sign Date: 10/25/2022 8:41:17 PM Ordering Provider: [facility] 10-25-2022 Note ORIGINAL EXAMINATION: CT OF THE [...] Sign Date: 10/25/2022 8:41:17 PM Ordering Provider: [facility] 10-25-2022 SARS-CoV-2 (COVID-19) RNA LILIA+probe Ql (Nph) Positive *ABN* (10/25/22 3:28 PM) AO Auto Urine SS documented as of this encounter (statuses as of 01/03/2024) [facility] History of Past illness Narrative* Problem Noted Date Diagnosed Date Resolved Date High risk with catherine vated human chorionic gonadotropin (hCG) and alpha fetoprotein (AFP) 09/20/2016 01/26/2021 Overview: September 20, 2016 needs growth scan in 3rd trimester. Jocelynn Araiza MD Rubella non-immune status, antepartum 07/28/2016 01/26/2021 High risk teen 06/09/2016 Overview: 06/09/2016Pt is 11 years old. She completed the 7th grade at [employer] last year and is planning on homeschooling this year. The FOB is 15 years old and is involved. Information on WIC and Care Center given and discussed. TKRN September 02, 2016 Recommend growth scan in 3 rd trimester due to elevated inhibin levels on sequential screen per Dr. Godfrey. Jocelynn Araiza MD History of depression 06/09/20162020 Overview: 06/09/2016 Pt has a history of depression diagnosed 1 year ago. She has been off medication for 3 months .She states she has been seeing Dr [facility] at [facility] and has an upcoming appt with her soon. Discussed increased risks of depression during and and importance of reporting the development or worsening of symptoms should they occur.Pt states she had suicidal thoughts in the past and was hospitalized for 1 week at [facility] in [place] for overdose of medication. She denies any suicidal thoughts for a month.TKRN Quit smoking 06/09/2016 01/26/2021 Overview: 06/09/2016 Pt recently quit smoking 05/26. Discussed risks of smoking during and advised pt to continue not smoking.TKRN Nausea and vomiting during 06/09/2016 01/26/2021 Overview: 06/09/2016Patient is complaining of nausea and vomiting in . Advised patient to call/come in if she is unable to keep any food or fluids down in a 24-hour period. Recommended Vitamin B6. TKRN Family history of defects 06/09/2016 01/26/2021 Overview: 06/09/2016Pt has a 2nd cousin born with Down Syndrome. Pt has a brother born with a heart murmur and a mass behind his heart. TKRN documented as of this encounter (statuses as of 01/03/2024) [facility] History of Past illness Narrative* Problem Noted Date Diagnosed Date Resolved Date High risk with catherine vated human chorionic gonadotropin (hCG) and alpha fetoprotein (AFP) 09/20/2016 01/26/2021 Overview: September 20, 2016 needs growth scan in 3rd trimester. Jocelynn Araiza MD Rubella non-immune status, antepartum 07/28/2016 01/26/2021 High risk teen 06/09/2016 Overview: 06/09/2016Pt is 11 years old. She completed the 7th grade at [employer] last year and is planning on homeschowalnutg this year. The FOB is 15 years old and is involved. Information on WIC and Care Center given and discussed. TKRN September 02, 2016 Recommend growth scan in 3 rd trimester due to elevated inhibin levels on sequential screen per Dr. Godfrey. Jocelynn Araiza MD History of depression 06/09/20162020 Overview: 06/09/2016 Pt has a history of depression diagnosed 1 year ago. She has been off medication for 3 months .She states she has been seeing Dr Ring at [facility] and has an upcoming appt with her soon. Discussed increased risks of depression during and and importance of reporting the development or worsening of symptoms should they occur.Pt states she had suicidal thoughts in the past and was hospitalized for 1 week at [facility] for overdose of medication. She denies any suicidal thoughts for a month.TKRN Quit smoking 06/09/2016 01/26/2021 Overview: 06/09/2016 Pt recently quit smoking 05/26. Discussed risks of smoking during and advised pt to continue not smoking.TKRN Nausea and vomiting during 06/09/2016 01/26/2021 Overview: 06/09/2016Patient is complaining of nausea and vomiting in . Advised patient to call/come in if she is unable to keep any food or fluids down in a 24-hour period. Recommended Vitamin B6. TKRN Family history of defects 06/09/2016 01/26/2021 Overview: 06/09/2016Pt has a 2nd cousin born with Down Syndrome. Pt has a brother born with a heart murmur and a mass behind his heart. TKRN documented as of this encounter (statuses as of 01/15/2024) [facility] History of Past illness Narrative* Problem Noted Date Diagnosed Date Resolved Date High risk with catherine vated human chorionic gonadotropin (hCG) and alpha fetoprotein (AFP) 09/20/2016 01/26/2021 Overview: September 20, 2016 needs growth scan in 3rd trimester. Jocelynn Araiza MD Rubella non-immune status, antepartum 07/28/2016 01/26/2021 High risk teen 06/09/2016 Overview: 06/09/2016Pt is 11 years old. She completed the 7th grade at [employer] last year and is planning on homeschowalnutg this year. The FOB is 15 years old and is involved. Information on WIC and Care Center given and discussed. TKRN September 02, 2016 Recommend growth scan in 3 rd trimester due to elevated inhibin levels on sequential screen per Dr. Godfrey. Jocelynn Araiza MD History of depression 06/09/20162020 Overview: 06/09/2016 Pt has a history of depression diagnosed 1 year ago. She has been off medication for 3 months .She states she has been seeing Dr Ring at [facility] and has an upcoming appt with her soon. Discussed increased risks of depression during and and importance of reporting the development or worsening of symptoms should they occur.Pt states she had suicidal thoughts in the past and was hospitalized for 1 week at [facility] in [place] for overdose of medication. She denies any suicidal thoughts for a month.TKRN Quit smoking 06/09/2016 01/26/2021 Overview: 06/09/2016 Pt recently quit smoking 05/26. Discussed risks of smoking during and advised pt to continue not smoking.TKRN Nausea and vomiting during 06/09/2016 01/26/2021 Overview: 06/09/2016Patient is complaining of nausea and vomiting in . Advised patient to call/come in if she is unable to keep any food or fluids down in a 24-hour period. Recommended Vitamin B6. TKRN Family history of defects 06/09/2016 01/26/2021 Overview: 06/09/2016Pt has a 2nd cousin born with Down Syndrome. Pt has a brother born with a heart murmur and a mass behind his heart. TKRN documented as of this encounter (statuses as of 01/15/2024) [facility] History of Past illness Narrative* Problem Noted Date Diagnosed Date Resolved Date High risk with catherine vated human chorionic gonadotropin (hCG) and alpha fetoprotein (AFP) 09/20/2016 01/26/2021 Overview: September 20, 2016 needs growth scan in 3rd trimester. Jocelynn Araiza MD Rubella non-immune status, antepartum 07/28/2016 01/26/2021 High risk teen 06/09/2016 Overview: 06/09/2016Pt is 11 years old. She completed the 7th grade at [employer] last year and is planning on homeschowalnutg this year. The FOB is 15 years old and is involved. Information on WIC and Care Center given and discussed. TKRN September 02, 2016 Recommend growth scan in 3 rd trimester due to elevated inhibin levels on sequential screen per Dr. Godfrey. Jocelynn Araiza MD History of depression 06/09/20162020 Overview: 06/09/2016 Pt has a history of depression diagnosed 1 year ago. She has been off medication for 3 months .She states she has been seeing Dr Ring at [facility] and has an upcoming appt with her soon. Discussed increased risks of depression during and and importance of reporting the development or worsening of symptoms should they occur.Pt states she had suicidal thoughts in the past and was hospitalized for 1 week at [facility] for overdose of medication. She denies any suicidal thoughts for a month.TKRN Quit smoking 06/09/2016 01/26/2021 Overview: 06/09/2016 Pt recently quit smoking 05/26. Discussed risks of smoking during and advised pt to continue not smoking.TKRN Nausea and vomiting during 06/09/2016 01/26/2021 Overview: 06/09/2016Patient is complaining of nausea and vomiting in . Advised patient to call/come in if she is unable to keep any food or fluids down in a 24-hour period. Recommended Vitamin B6. TKRN Family history of defects 06/09/2016 01/26/2021 Overview: 06/09/2016Pt has a 2nd cousin born with Down Syndrome. Pt has a brother born with a heart murmur and a mass behind his heart. TKRN documented as of this encounter (statuses as of 01/17/2024) [facility] No data available for this section [facility] Evaluation note* Diagnosis Vaginal bleeding in , first trimester- Primary [facility] Diagnosis Early stage of - Primary state, incidental [facility] Diagnosis with uncertain dates in first trimester- Primary [facility] Diagnosis Encounter for supervision of high risk in first trimester, antepartum- Primary 8 weeks gestation of state, incidental with uncertain dates in first trimester History of macrosomia in in prior , currently with other poor obstetric history Ovarian cyst, right Other and unspecified ovarian cyst Constipation during in first trimester Nausea/vomiting in Unspecified vomiting of , unspecified as to episode of care Family history of diabetes mellitus Obesity affecting in first trimester, unspecified obesity type Encounter for screening for malignant neoplasm of cervix Screening for malignant neoplasm of the cervix documented in this encounter [facility] for referral (narrative)* Diagnostic Procedure Only (Routine) - Authorized Specialty Diagnoses / Procedures Referred By Kya bagley Referred To Contact [facility] Diagnoses Vaginal bleeding in , first trimester Procedures US FEMALE PELVIS TRANSVAG US TRANSVAGINAL Jocelynn Araiza MD [address] [place] [address] [place] [address] Referral ID Status Reason Start Date Expiration Date Visits Requested Visits Authorized [id number] Authorized Auto-Generat ed Referral 2024 01/31/2025 1 1 [facility] for referral (narrative)* Diagnostic Procedure Only (Routine) - Authorized Specialty Diagnoses / Procedures Referred By Kya bagley Referred To Contact [facility] Diagnoses Encounter for supervision of high risk in first trimester, antepartum 8 weeks gestation of with uncertain dates in first trimester Procedures NUCHAL TRANSLUCENCY WHI US NUCHAL TRANSLUCENCY 1ST GESTATION Catie Montes APRN.CNP [address] [place] [address] [facility] [address] [place] [address] Referral ID Status Reason Start Date Expiration Date Visits Requested Visits Authorized [id number] Authorized Auto-Generat ed Referral 01/15/2024 01/14/2025 1 1 [facility] Summary Purpose Family History No Family History Records FoundNo Family History Records FoundNo Family History Records Found No data available for this section No Family History Records Found Advance Directives No Advanced Directives Records FoundNo Advanced Directives Records FoundNo Advanced Directives Records FoundNo Advanced Directives Records Found Health Concerns Active Problems Noted Date Diagnosed Date [facility] Education - [facility] 01/11/2024 Education - [place] 01/11/2024 Active Problems Noted Date Diagnosed Date [facility] - [facility] 01/11/2024 Education - [place] 01/11/2024 Active Problems Noted Date Diagnosed Date [facility] - [facility] 01/11/2024 [place] - [place] 01/11/2024 Additional Source Comments INFORMATION SOURCE (unrecogn ized section and content) DATE CREATED AUTHOR AUTHOR'S ORGANIZ ATION 11/21/2022 [facility] ([place]) DATE CREATED AUTHOR AUTHOR'S ORGANIZ ATION 11/10/2023 [facility] DATE CREATED AUTHOR AUTHOR'S ORGANIZ ATION 01/17/2024 [facility] Care Team (unrecognized sect ion and content) Care Team Personnel Name: DUSTY POSADA MD Member Role: Primary Care Physician Address: Address: [address] [place] [address]- [place] Name: CLARE LIZ MD Position: ED Physician Member Role: ED Physician Address: Address: [facility] [address] [place] [address]- Name: SHRUTI LEONE DO Position: Resident Member Role: Resident Address: Address: [address] [place] [facility] [place] [address]- Name: Sandra Hassan RN Position: AO RN Member Role: ED RN Care Team Related Persons Name: MIREILLE BLAIRE Address: [address] [place] [address] Name: SUSI HEARN Address: Home [address], [place] [address] Source Comments (unrecognize d section and content) In the event this informatio n is protected by the Federal Confidentiality of Alcohol and Drug Abuse Patient Records regulations: The Federal rules restrict any use of the information to criminally investigate or prosecute any alcohol or drug abuse patient.[facility] the event this information is protected by the Federal Confidentiality of Alcohol and Drug Abuse Patient Records regulations: The Federal rules restrict any use of the information to criminally investigate or prosecute any alcohol or drug abuse patient.[facility] the event this information is protected by the Federal Confidentiality of Alcohol and Drug Abuse Patient Records regulations: The Federal rules restrict any use of the information to criminally investigate or prosecute any alcohol or drug abuse patient.[facility] the event this information is protected by the Federal Confidentiality of Alcohol and Drug Abuse Patient Records regulations: The Federal rules restrict any use of the information to criminally investigate or prosecute any alcohol or drug abuse patient.[facility] the event this information is protected by the Federal Confidentiality of Alcohol and Drug Abuse Patient Records regulations: The Federal rules restrict any use of the information to criminally investigate or prosecute any alcohol or drug abuse patient.[facility] Reason for Visit (unrecogniz ed section and content) Reason Comments ER F/U Reason Comments Initial OB Visit Reason Comments Nausea & Vomiting Care Teams (unrecognized sec tion and content) 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 Specialty Start Date End Date Karen Griffin [address] [place] [address] PCP - General Pediatrics 03/14/18 12/31/23 Dusty Posada [address] [place] [address] PCP - General Pediatrics 01/01/24 Karen Griffin [address] [place] [address] Pediatrics 08/23/17 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 Specialty Start Date End Date Dusty Posada [address] [place] [address] PCP - General Pediatrics 01/01/24 Karen Griffin [address] [place] [address] Pediatrics 08/23/17 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 [facility] [employer] [facility]. provides no warranty or guarantee of the accuracy or completeness of information in this document.
--- NOTE | 2024-01-18 07:39 | ED.VIS.GI ---
HPI HPI - GI History of Present Illness Chief Complaint: Abd Pain Informant: patient Abdominal Pain/Flank Pain Onset: Yesterday Context: Gradual Onset Timing: Continuous Quality: Cramping Location: Diffuse Worsened by: Nothing Relieved by: Nothing Nausea/Vomiting/Emesis GI Symptom: Positive for Nausea and Vomiting Onset: Yesterday Quality: Positive for Nonbilious; Negative for Blood streaks, Coffee ground or Hematemesis Diarrhea/Melena/Hematochezia GI Symptom: Negative for Diarrhea, Melena or Hematochezia Associated Symptoms Associated Symptoms: Negative for Dysuria, Frequency or Hematuria Narrative Narrative: (Patient was seen during computer downtime. Note was placed on the chart 2 days after the patient was seen.) Patient presents with abdominal pain, nausea, and vomiting that began yesterday. Patient states she is approximately 8 weeks . Patient states she has been unable to keep anything down. Patient denies any hematemesis or coffee-ground emesis. Patient states her pain came on gradually. Patient describes her pain as cramping. Patient states her pain is diffuse across her entire abdomen. Patient states that has been constant since yesterday. Patient states that she has antiemetics at home which she has been taking without any relief. [facility] Medical History (Updated 01/18/24 @ 07:[address] Cuauhtemoc Benitez DO) Cyst of right ovary Home Medications ondansetron 4 mg disintegrating tablet 4 mg PO Q6H PRN PRN Nausea #20 tabs 01/08/24 [Rx Last Taken Unknown] promethazine 25 mg rectal suppository (Promethegan) 25 mg RECTAL Q6H PRN PRN Nausea ##15 01/08/24 [Rx Last Taken Unknown] Allergy/AdvReac Type Severity Reaction Status Date / Time No Known Allergies Allergy Verified 01/08/24 08:53 Surgical History History of cholecystectomy Social History Smoking Status: Never smoker ROS ROS ED Constitutional Constitutional ED: Denies chills or fever(s) Eyes Eyes: Denies blurry vision or change in vision ENT ENT ED: Denies rhinorrhea or sore throat Cardiovascular Cardiovascular: Denies chest pain or palpitations Respiratory/Chest Respiratory/Chest: Denies cough or dyspnea Gastrointestinal Gastrointestinal: Reports abdominal pain, nausea and vomiting Genitourinary Genitourinary ED: Denies dysuria or hematuria Musculoskeletal Musculoskeletal: Denies back pain or neck pain Integumentary Reports rash; Denies abscess Neurologic Neurologic: Denies headache(s) or weakness Allergic/Immunologic Allergic/Immunologic ED: Denies mouth swelling or urticaria EXAM Physical Exam Const Positive well nourished and well developed General Appearance ED: well developed and NAD HEENT Reports moist mucous membranes Neck supple and no JVD Resp normal respiratory effort and clear to auscultation bilaterally Cardio regular rate and regular rhythm GI non-distended Palpation: soft and tender epigastric, LLQ, RLQ, LUQ, RUQ, periumbilical and suprapubic Extremity full ROM Neuro CN's II-XII intact bilaterally, moves all extremities and no sensory deficits noted Sensorium / Orientation: alert Motor Exam: strength 5/5 throughout Psych mental status grossly normal MDM MDM MDM Narrative Medical decision making narrative: Differential diagnosis includes hyperemesis gravidarum, gastroenteritis, pancreatitis, viral illness, and urinary tract infection. CBC will be obtained to assess for leukocytosis and anemia. Comprehensive metabolic profile will be obtained to assess for hepatic function, renal function, and electrolyte abnormality. Lipase will be obtained to assess for pancreatitis. Urinalysis will be obtained to assess for urinary tract infection and hematuria. Lab Data Attestation: I reviewed the patient's lab results. Lab results narrative: Hepatic profile was reviewed and was within normal limits. Lipase was reviewed and was normal at 13. Labs: Laboratory Results - last 24 hr 01/16/24 14:32 Sodium 138 Potassium 3.8 Chloride 107 Carbon Dioxide 27.0 Anion Gap 4 L BUN 5 L Creatinine 0.56 Est GFR (MDRD) Af Amer 176 Est GFR (MDRD) Non-Af 145 BUN/Creatinine Ratio 8.9 L Glucose 87 Calcium 9.1 Total Bilirubin 0.40 AST 16 ALT 33 Alkaline Phosphatase 48 Total Protein 7.4 Albumin 3.6 Globulin 3.8 Albumin/Globulin Ratio 0.9 Lipase 13 Treatment and Re-Evaluation :: Patient was given IV fluids and Zofran here. Patient had no improvement with the Zofran. Patient wanted to leave. Patient did not want any further antiemetics. Patient left prior to completing treatment. The patient left before labs are returned and urine was obtained. Patient was instructed to follow-up with her DIRECTOR OF INDIVIDUAL GIVING in 3 to 5 days. Patient was instructed return if worse in any way. Discharge Plan Triage Chief Complaint: Abd Pain ED Provider: Cuauhtemoc Benitez Dx/Rx/DC Orders Clinical Impression: Hyperemesis gravidarum, Nausea & vomiting Instructions: ED Vomiting (Adult) Prescriptions: No Action promethazine [Promethegan] 25 mg suppository 25 mg RECTAL Q6H PRN PRN (Reason: Nausea) Qty: 15 0RF ondansetron [ondansetron] 4 mg tablet,disintegrating 4 mg PO Q6H PRN PRN (Reason: Nausea) Qty: 20 0RF Primary Care Provider: Bradley Posada Disposition Disposition: Home, Self Care Discharge Date/Time: 01/16/24 15:45
== END 2024-01-16 15:45 | disposition home or self-care (01) ==
LOC: ED 01-17 14:21
PROVIDERS: Emergency Medicine; Emergency Provider Emergency Medicine; PCP Pediatrics; Visit Provider Emergency Medicine
DX: O21.0 Mild hyperemesis gravidarum (principal); Z3A.08 8 weeks gestation of pregnancy; Z90.49 Acquired absence of other specified parts of digestive tract
CPT/HCPCS: 80053; 83690; 96361; 96374; 99284; J7030; A4216; J2405

== ENCOUNTER 2024-07-01 08:35 | Outpatient (CLI) | payer BC, MEDICAID, SELFPAY ==
[2024-07-01 08:48] VITALS: BMI 41.1
[2024-07-01 08:55] VITALS: BP 125/73; PULSE 85; RESP 16; TEMP 36.6; O2SAT 98; O2SAT 99
[2024-07-01 09:18] LABS: Glucose, Dipstick Normal (Normal); Ketone-Dipstick Negative (Negative); Leukocyte Esterase-Dipstick 100 /ul (Negative); Nitrite-Dipstick Negative (Negative); Occult Blood-Urine 10 /ul (Negative); Protein-Dipstick 30 mg/dl (Negative); Urine Bilirubin Dipstick Negative (Negative); Urine Urobilinogen 1 mg/dl (Normal)
[2024-07-01 09:34] LABS: Color, Urine DARK YELLOW (Yellow); Urine Clarity Sl. Cloudy (Clear)
[2024-07-01] MEDS: Lactated Ringers 1,000 ML 999 ML IV (10:10)
[2024-07-01] MEDS: Ondansetron 4 MG/2 ML Vial 8 MG IV (10:11)
[2024-07-01 10:35] LABS: Absolute Lymphocyte Count 2.45 X10^3/uL (0.83-4.51); Absolute Neutrophil Count 11.8 X10^3/uL (2.0-7.7); Basophil# 0.06 X10^3/uL; Basophil% 0.4 % (0-1); Eosinophil# 0.29 X10^3/uL; Eosinophils% 1.8 % (0-5); Hematocrit 33.7 % (37-47); Hemoglobin 11.4 g/dL (12.0-15.0); Lymphocyte # 2.45 X10^3/ul (0.83-4.51); Lymphocyte % 15.5 % (19-41); Mean Corp Hgb Conc 33.8 g/dL (32-36); Mean Corpuscular Hgb 29.4 pg (27.0-32.0); Mean Corpuscular Volume 86.9 fL (81-99); Mean Platelet Vol. 9.4 fl (6.2-12.0); Monocyte# 1.01 X10^3/uL; Monocyte% 6.4 % (0-10); NRBC Flagged by Analyzer 0 % (0-5); Neutrophil # 11.84 X10^3/uL (2.7-7.7); Neutrophil % 74.8 % (47-70); Platelet Count 336 K/mm3 (150-450); RBC Distribution Width CV 12.1 % (11.6-14.6); RBC Distribution Width SD 38.6 fl (35.1-43.9); Red Blood Count 3.88 M/mm3 (4.2-5.4); White Blood Count 15.8 K/mm3 (4.4-11.0)
[2024-07-01 12:10] LABS: ALB/GLOB Ratio 0.5 RATIO (0.9-2.4); AST(SGOT) 12 U/L (15-37); Alanine Aminotransfer ALT/SGPT 18 U/L (13-56); Albumin, Serum 2.4 g/dL (3.2-5.0); Alkaline Phosphatase 110 U/L (45-117); Amylase 32 U/L (25-115); Anion Gap 9 (5-15); BUN 6 mg/dL (7-18); BUN/Creat Ratio 12.6 RATIO (10-20); Chloride 107 mmol/L (98-107); Creatinine, Serum 0.48 mg/dL (0.55-1.02); EST Glomerular Filtration Rate 175 mL/min (>60); Est Glom Filt Rate - Afr Amer 212 mL/min (>60); Estimated Creatinine Clearance 215.22 ml/min; Globulin 4.4 g/dL (2.2-4.2); Glucose 89 mg/dL (74-106); Lipase 18 U/L (13-75); Potassium 3.8 mmol/L (3.5-5.1); Protein, Total 6.8 g/dL (6.4-8.2); Sodium Level 137 mmol/L (136-145)
[2024-07-01 13:02] VITALS: BP 121/58; PULSE 75
--- NOTE | 2024-07-01 14:35 | OB.TRI.NOTE ---
HPI - General General Date of Service: 07/01/24 HPI Narrative MILADYS KENDRICK, is a 19 F who presents at 32 weeks for decreased movement, white urine and vaginal pressure on and off. Increased nausea, took zofran at home but threw it up. PFSH PFSH Medical History (Updated 07/01/24 @ 14:36 by Jackie Candelaria CNM) Cyst of right ovary Home Medications ?Medication ?Instructions ?Recorded ?Last Taken ?Type ondansetron 4 mg disintegrating 4 mg PO Q6H PRN PRN Nausea #20 tabs 01/08/24 Unknown Rx tablet promethazine 25 mg rectal 25 mg RECTAL Q6H PRN PRN Nausea 01/08/24 Unknown Rx suppository (Promethegan) ##15 Allergy/AdvReac Type Severity Reaction Status Date / Time No Known Allergies Allergy Verified 01/08/24 08:53 Surgical History History of cholecystectomy Social History Smoking Status: Never smoker History Elective abortions Hx Para 1 Spontaneous abortions Hx # Term Pregnancies Ectopic pregnancies Hx # Pregnancies Multiple births # of living children NST FHR Rate Baby A Baseline: 130 Variability:: Moderate Accelerations:: 15 x 15 Decelerations:: None NST Reactive:: Yes Uterine Activity:: Irregular Assessment & Plan (1) Nausea & vomiting: (2) Decreased movement: PLAN: Plan 1) Reactive NST 2) IV zofran and 1 Liter LR 3) Urine culture sent 4) D/C home
== END 2024-07-01 13:05 | disposition home or self-care (01) ==
LOC: WPOUT 08:39 → WP 08:46
PROVIDERS: PCP Pediatrics; Referring Provider Advanced Practice Midwife; Visit Provider Advanced Practice Midwife
DX: O21.9 Vomiting of pregnancy, unspecified (principal); O36.8130 Decreased fetal movements, third trimester, not applicable or unspecified; Z3A.32 32 weeks gestation of pregnancy
CPT/HCPCS: 96374; 96361; 36415; 59025; 59050; 80053; 81002; 82150; 83690; 85025; 87077; 87086; 87088; 87491; 87591; 87631; 99221; J7120; G0378; J2405

== ENCOUNTER 2024-08-25 23:05 | Outpatient (CLI) | payer BC, MEDICAID, SELFPAY ==
[2024-08-25 23:23] VITALS: PULSE 69; O2SAT 99
[2024-08-25 23:28] VITALS: RESP 14; TEMP 36.4
[2024-08-25 23:29] VITALS: BP 128/90; PULSE 69
[2024-08-25 23:46] VITALS: BMI 41.3
--- NOTE | 2024-08-26 07:12 | OB.TRI.HP_ITS ---
HPI - General General Date of Admission: 08/25/24 Date of Service: 08/26/24 Chief Complaint: pelvic pressure HPI Narrative MILADYS KENDRICK, is a 19 F who presents pelvic pressure and back pain. No LOF or bleeding. Good movement 2 [facility] Maternal Data Information Final JOSE J: 08/24/24 Gestational age: 40+1 PFSH [facility] Medical History (Updated 08/26/24 @ 07:[address] Valentina Yo MD) Cyst of right ovary Home Medications ?Medication ?Instructions ?Recorded ?Last Taken ?Type ondansetron 4 mg disintegrating 4 mg PO Q6H PRN PRN Nausea #20 tabs 01/08/24 Unknown Rx tablet promethazine 25 mg rectal 25 mg RECTAL Q6H PRN PRN Nausea 01/08/24 Unknown Rx suppository (Promethegan) ##15 aspirin 81 mg capsule 81 mg PO DAILY 08/25/24 Unknown History pantoprazole 40 mg granules 40 mg PO DAILY 08/25/24 Unknown History delayed-release for susp in packet (Protonix) vit no.95-ferrous 1 tab PO DAILY 08/25/24 Unknown History fumarate 28 mg-folic acid 800 mcg tablet () Allergy/AdvReac Type Severity Reaction Status Date / Time morphine AdvReac Vomiting Verified 08/26/24 03:20 Surgical History History of cholecystectomy Social History Smoking Status: Never smoker History Elective abortions Hx Para 1 Spontaneous abortions Hx # Term Pregnancies Ectopic pregnancies Hx # Pregnancies Multiple births # of living children NST FHR Rate Baby A Baseline: 120 Variability:: Moderate Accelerations:: 15 x 15 Decelerations:: None NST Reactive:: Yes FHR Category:: Category I Uterine Activity:: Irregular Assessment & Plan (1) Pelvic pressure in , antepartum: (2) 40 weeks gestation of : PLAN: Plan No cervical change with multiple exams. Discharged home
== END 2024-08-26 03:28 | disposition home or self-care (01) ==
LOC: WPOUT 23:15 → WP 23:16
PROVIDERS: PCP Pediatrics; Referring Provider Obstetrics & Gynecology; Visit Provider Obstetrics & Gynecology
DX: O99.891 Other specified diseases and conditions complicating pregnancy (principal); Z90.49 Acquired absence of other specified parts of digestive tract; R10.2 Pelvic and perineal pain; Z3A.40 40 weeks gestation of pregnancy
CPT/HCPCS: 96372; 59025; 59050; 99221; G0378

== ENCOUNTER 2024-08-29 04:45 | Inpatient (IN) | payer BC, MEDICAID, SELFPAY ==
[2024-08-29] VITALS (37 sets, daily range): BP systolic 117–142; BP diastolic 59–95; PULSE 61–156; RESP 16–17; TEMP 36.1–37.1; O2SAT 82–100; BMI 37.3
--- OUTSIDE RECORDS SUMMARY | 2024-08-29 04:53 | XMS RPT_ITS | CCD ---
Author Organization [facility] Care Team Providers Care Radio Repairman Name Role Phone FROYLAN FREED, DR DUSTY Taylor Primary Care Physician DUSTY GALEANO Primary Care Unavailable REFERRED, SELF Referring Unavailable ALYSSA PAULINO Attending Unavailable Karen Griffin Unavailable Dusty Galeano Primary Care Provider Karen Griffin Primary Care Provider Karen Griffin Unavailable Dusty Galeano Primary Care Provider ADILIA OHARA DO Attending Unavailable FROYLAN FREED, DR DUSTY Taylor Primary Care Unavailab Anjali FREED, TARIQ Hoang Attending Unavailable FROYLAN FREED, DR DUSTY Taylor Primary Care Unavailab Elyse FREED, BROOKE Attending Unavailable FROYLAN FREED, DR DUSTY Taylor Primary Care UnavailJOCELYNN Engle Referring Unavailable DUSTY GALEANO Primary Care UnavailJOCELYNN Engle Attending Unavailable DUSTY GALEANO Primary Care UnavailJOCELYNN Engle Referring Unavailable DUSTY GALEANO Primary Care Unavailab EVIE Rivers Referring Unavailable DUSTY GALEANO Primary Care UnavailVALENTINA Laird Attending Unavailable EVIE MONTES Referring Unavailable DUSTY GALEANO Primary Care UnavailJACKIE Spears Attending Unavailable DUSTY GALEANO Primary Care UnavailNALLELY Brock Attending Unavailable DUSTY GALEANO Primary Care Unavailab DUSTY Leonard EVON Primary Care Unavailab EVIE Rivers Attending Unavailable DUSTY GALEANO Primary Care Unavailab VALENTINA Glover Attending Unavailable [facility], [facility] Primary Care Unavailab ONEIDA Armendariz Attending Unavailable [facility], [facility] UnavailJACKIE Spears Referring Unavailable JOAQUINDANAE Referring Unavailable MARII KAREN SANCHEZ Primary Care Unavaila ble [facility], [facility] Unavailab le FROYLAN, [facility] Care UnavailJACKIE Spears Attending Unavailable [facility], [facility] Care Unavailab EVIE Rivers Referring Unavailable FABVALENTINA COTTO Attending Unavailable JACKIE CANDELARIA Attending Unavailable [facility], [facility] Unavailab le FROYLAN, [facility] Primary Care Unavailab JACKIE Cruz Attending Unavailable [facility], [facility] Care Unavailab EVIE Rivers Attending Unavailable [facility], [facility] UnavailJOCELYNN Engle Referring Unavailable [facility], [facility] Unavailab EVIE Rivers Attending Unavailable [facility], [facility] Primary Care Unavailab VALENTINA Glover Attending Unavailable [facility], [facility] Primary Care Unavailab ONEIDA Armendariz Attending Unavailable [facility], [facility] Primary [facility] Unavailab VALENTINA Glover Referring Unavailable [facility], [facility] Care Unavailab EVIE Rivers Attending Unavailable EVIE MONTES Referring Unavailable [facility], [facility] Care Unavailab ONEIDA Armendariz Referring Unavailable [facility], [facility] Primary Care Unavailab ONEIDA Armendariz Referring Unavailable ONEIDA MATTSON Attending Unavailable [facility], [facility] Primary Care Unavailab le FROYLAN, [facility] Primary Care Unavailab VALENTINA Glover Attending Unavailable [facility], [facility] Primary Care Unavailab quinten HAEVIE MAI Referring Unavailable [facility], [facility] Primary Care Unavailab le FROYLAN, [facility] Primary Care Unavailab le HAEVIE MAI Referring Unavailable [facility], [facility] Primary Care Unavailab ONEIDA Armendariz Attending Unavailable Allergies Allergy Classification Reported Allergen(s) Allergy Type Date of Onset Reaction(s) Facility (20 sources) Morphine; Translations: [MORPHINE] Drug Allergy 01-11-2024 GI Upset [facility] Medications Current Medications Medication Drug Class(es) Dates Sig (Normalized) Sig (Original) ampicillin 500 mg oral capsule (1 source) Penicillin-class Antibacterial Start: 07-05-2024 End: 07-10-2024 take 1 capsule by mouth four times daily ampicillin (PRINCIPEN) 500 mg capsule Take 1 capsule by mouth four times daily for 5 days. 20 capsule 07/05/2024 07/10/2024 Active aspirin 81 mg delayed release oral tablet (20 sources) Platelet Aggregation Inhibitor, Nonsteroidal Anti-inflammatory Drug Start: 05-03-2024 take 1 tablet by mouth once daily aspirin, enteric coated (ASPIRIN, ENTERIC COATED) 81 mg EC tablet Take 1 tablet by mouth once daily. 30 tablet 4 05/03/2024 Active azithromycin 500 mg oral tablet (5 sources) Macrolide Antimicrobial Start: 03-29-2024 End: 03-29-2024 take 2 tablets by mouth once azithromycin (ZITHROMAX) 500 mg tablet Take 2 tablets by mouth one time only for 1 dose. 2 tablet 0 03/29/2024 03/29/2024 Active Start: 03-29-2024 End: 03-29-2024 take 1 dose by mouth once azithromycin (ZITHROMAX) 1 g chadwick powder Take 1 Packet by mouth one time only for 1 dose. 1 Packet 0 03/29/2024 03/29/2024 Discontinued Start: 02-15-2024 End: 02-15-2024 take 1 dose by mouth once azithromycin (ZITHROMAX) 1 g chadwick powder Take 1 Packet by mouth one time only for 1 dose. 1 Packet 0 02/15/2024 02/15/2024 Start: 01-25-2024 End: 01-25-2024 take 2 tablets by mouth once azithromycin (ZITHROMAX) 500 mg tablet Take 2 tablets by mouth one time only for 1 dose. 2 tablet 0 01/25/2024 01/25/2024 Active Start: 01-17-2024 End: 01-17-2024 take 2 tablets by mouth once azithromycin (ZITHROMAX) 500 mg tablet Take 2 tablets by mouth one time only for 1 dose. 2 tablet 0 01/17/2024 01/17/2024 Active Comment on above: Take 2 tablets by mo uth one time only for 1 dose. Take 1 Packet by endy th one time only for 1 dose. cephalexin 500 mg oral capsule (3 sources) Cephalosporin Antibacterial Start: 03-19-2024 End: 03-26-2024 cephalexin 500 mg oral capsule Dose : 500 mg = 1 cap(s), Oral, q12h, X 7 day(s), # 14 cap(s), 0 Refill(s), 03/26/24 4:41:00 PM EDT, 109.1 Start Date: 03/19/24 Stop Date: 03/26/24 Status: Ordered Start: 01-17-2024 End: 01-24-2024 take 1 capsule by mouth four times daily cephALEXin (KEFLEX) 500 mg capsule Take 1 capsule by mouth four times daily for 7 days. 28 capsule 0 01/17/2024 01/24/2024 Active Comment on above: Take 1 capsule by mo [facility] four times daily for 7 days. etonogestrel 68 mg drug implant (3 sources) Progestin Start: 018 inject 1 dose by subcutaneous injection once Nexplanon 68 mg subcutaneous implant Dose : 68 mg = 1 EA, Subcutaneous, Once, 0 Refill(s) Start Date: 11/05/18 Status: Ordered metoclopramide 5 mg oral tablet (1 source) Dopamine-2 Receptor Antagonist Start: 022 End: Reglan 5 mg oral tablet Dose : 5 mg = 1 tab(s), Oral, QID, X 14 day(s), # 56 tab(s), 0 Refill(s), 11/08/22 20:52:00 EST Start Date: 10/25/22 Stop Date: 11/08/22 Status: Ordered ondansetron 4 mg disintegrating oral tablet (20 sources) Serotonin-3 Receptor Antagonist Start: 024 End: 024 take 2 tablets by mouth every eight hours as needed ondansetron orally disintegrating (ZOFRAN ODT) 4 mg disintegrating tablet Take 2 tablets by mouth every 8 hours as needed for nausea/vomiting. 90 tablet 3 03/29/2024 Active Start: 01-15-2024 End: 01-18-2024 take 1 tablet by mouth every eight hours as needed ondansetron orally disintegrating (ZOFRAN ODT) 4 mg disintegrating tablet Take 1 tablet by mouth every 8 hours as needed for nausea/vomiting. 90 tablet 3 01/15/2024 01/18/2024 Discontinued (Adjust Sig - Block E-Cancel) Start: 01-01-2024 End: 01-15-2024 take 1 tablet by mouth every eight hours as needed ondansetron (ZOFRAN) 4 mg tablet Take 1 tablet by mouth every 8 hours as needed for nausea/vomiting. 90 tablet 3 01/01/2024 01/15/2024 Discontinued (Course of therapy completed) Start: 11-05-2018 End: 11-10-2018 Zofran 4 mg oral tablet Dose : 4 mg = 1 tab(s), Oral, q8h, # 15 tab(s), 0 Refill(s) Start Date: 11/05/18 Stop Date: 11/10/18 Status: Ordered Comment on above: Take 1 tablet by endy th every 8 hours as needed for nausea/vomiting. Take 2 tablets by mo uth every 8 hours as needed for nausea/vomiting. pantoprazole 40 mg delayed release oral tablet (20 sources) Proton Pump Inhibitor Start: 07-26-20 take 1 tablet by mouth once daily pantoprazole DR (PROTONIX) 40 mg tablet Take 1 tablet by mouth once daily. 30 tablet 2 07/26/2024 Active Start: 01-25-2024 End: 03-29-2024 take 1 tablet by mouth once daily pantoprazole DR (PROTONIX) 40 mg tablet Take 1 tablet by mouth once daily. 30 tablet 2 01/25/2024 03/29/2024 Discontinued Start: 11-16-2021 End: 01-15-2024 take 1 tablet by mouth once daily pantoprazole DR (PROTONIX) 40 mg tablet Indications: Bloody stool , Heartburn , Right lower quadrant abdominal pain , Diarrhea, unspecified type Take 1 tablet by mouth once daily. 30 tablet 2 11/16/2021 01/15/2024 Discontinued (Course of therapy completed) Comment on above: Take 1 tablet by endy th once daily. PNV no.95/ferrous fum/folic ac ( ORAL) (20 sources) take 1 tablet by endy th once daily before mealtime PNV no.95/ferrous fum/folic ac ( ORAL) Take 1 tablet by mouth once daily. Active take 1 tablet by endy th once daily before mealtime PNV no.95/ferrous fum/folic ac ( ORAL) Take 1 tablet by mouth once daily. 0 Active PNV no.95/ferrou s fum/folic ac ( ORAL) Take by mouth. 0 Active Comment on above: Take by mouth. prochlorperazine 10 mg oral tablet (20 sources) Phenothiazine Start: 03-29-20 take 1 tablet by mouth every six hours as needed prochlorperazine (COMPAZINE) 10 mg tablet Take 1 tablet by mouth every 6 hours as needed (nausea). 30 tablet 1 03/29/2024 Active promethazine hydrochloride 25 mg oral tablet (13 sources) Phenothiazine Start: 10-09-20 promethazine 25 mg oral tablet Dose : 25 mg = 1 tab(s), Oral, q4h, # 12 tab(s), 0 Refill(s), Vertigo Start Date: 10/09/19 Status: Ordered End: 03-29-2024 promethazine HCl (PHENERGAN RECTAL) by RECTAL route as needed. 0 03/29/2024 Discontinued promethazine HCl (PHENERGAN RECTAL) by RECTAL route as needed. 0 Active Comment on above: by RECTAL route as n eeded. SUMAtriptan 50 mg oral tablet (3 sources) Serotonin-1b and Serotonin-1d Receptor Agonist Start: 10-09-2019 SUMAtriptan 50 mg oral tablet Dose : 50 mg = 1 tab(s), take 1 tablet by mouth if needed AT ONSET OF HEADACHE may repeat in 2 hours if needed Start Date: 10/09/19 Status: Ordered triamcinolone acetonide 0.01299 mg/mg topical ointment (1 source) Corticosteroid Start: 05-03-2024 End: 05-17-2024 triamcinolone (KENALOG) 0.025 % ointment Apply to affected area two times a day for 14 days. 15 g 0 05/03/2024 05/17/2024 Active Completed/Discontinued Medications Medication Drug Class(es) Dates Sig (Normalized) Sig (Original) famotidine 20 mg oral tablet (14 sources) Histamine-2 Receptor Antagonist Start: 03-29-2024 End: 07-26-2024 take 1 tablet by mouth twice daily famotidine (PEPCID) 20 mg tablet Take 1 tablet by mouth two times a day. 60 tablet 1 03/29/2024 07/26/2024 Discontinued (Discontinued by Patient) Problems Active Problems Problem Classification Problem Date Documented Da te Episodic/Chronic Allergic reactions (1 source) Inflammatory dermatosis; Translations: [Irritant contact dermatitis, unspecified cause] 05-03-2024 Episodic Bacterial infection; unspecified site (14 sources) Bacteria present; Translations: [Streptococcus, group B, as the cause of diseases classified elsewhere] Onset: 05-31-2024 08-02-2024 Episodic Fever of unknown origin (1 source) Fever; Translations: [Fever, unspecified] 04-16-2024 Episodic Immunizations and screening for infectious disease (1 source) Vaccination needed; Translations: [Encounter for immunization] 06-28-2024 Episodic Other complications of (20 sources) Maternal obesity complicating , childbirth and the puerperium, antepartum; Translations: [Obesity complicating , first trimester] Onset: 01-15-2024 01-15-2024 Chronic Other complications of (20 sources) Obesity; Translations: [Obesity complicating , unspecified trimester] Onset: 01-15-2024 05-03-2024 Chronic Other complications of (1 source) Obesity complicating , third trimester; Translations: [Obesity affecting in third trimester, unspecified obesity type] Onset: 05-31-2024 Chronic Other complications of (20 sources) High risk ; Translations: [Supervision of high risk , unspecified, first trimester] Onset: 09-20-2016 Resolved: 01-26-2021 01-15-2024 Episodic Other complications of (2 sources) Vomiting of ; Translations: [Vomiting of , unspecified] Onset: 01-16-2024 Episodic Other complications of (6 sources) Infectious disease in mother complicating , childbirth AND/OR puerperium; Translations: [Other maternal infectious and parasitic diseases complicating , first trimester] 01-17-2024 Episodic Other complications of (1 source) Finding related to ; Translations: [Other specified related conditions, unspecified trimester] Onset: 03-19-2024 Episodic Other complications of (18 sources) Heartburn; Translations: [Other specified related conditions, second trimester] Onset: 07-26-2024 03-29-2024 Episodic Other complications of (2 sources) Supervision of high risk , unspecified, second trimester; Translations: [Supervision of high risk in second trimester] Onset: 04-11-2024 Episodic Other complications of (1 source) tachycardia affecting management of mother; Translations: [Maternal care for abnormalities of the heart rate or rhythm, unspecified trimester, not applicable or unspecified] 07-16-2024 Episodic Other complications of (1 source) Supervision of high risk , unspecified, third trimester; Translations: [Encounter for supervision of high risk in third trimester, antepartum] Onset: 05-31-2024 Episodic Other complications of (1 source) Other maternal infectious and parasitic diseases complicating , first trimester; Translations: [Chlamydia infection affecting in first trimester] Onset: 05-31-2024 Episodic Other gastrointestinal disorders (1 source) Disorder of intestine; Translations: [Other specified diseases of intestine] Onset: 10-25-2022 Episodic Other screening for suspected conditions (not mental disorders or infectious disease) (7 sources) Patient encounter status; Translations: [Encounter for screening for malignant neoplasm of cervix] Onset: 07-29-2024 01-15-2024 Episodic Other upper respiratory infections (1 source) Sore throat symptom; Translations: [Acute pharyngitis, unspecified] 04-16-2024 Episodic Residual codes; unclassified (2 sources) Gestation period, 8 weeks; Translations: [8 weeks gestation of ] 01-15-2024 Episodic Residual codes; unclassified (1 source) Gestation period, 9 weeks; Translations: [9 weeks gestation of ] 01-25-2024 Episodic Residual codes; unclassified (2 sources) Gestation period, 12 weeks; Translations: [12 weeks gestation of ] 02-15-2024 Episodic Residual codes; unclassified (2 sources) Gestation period, 18 weeks; Translations: [18 weeks gestation of ] 03-29-2024 Episodic Residual codes; unclassified (1 source) Gestation period, 23 weeks; Translations: [23 weeks gestation of ] 05-03-2024 Episodic Residual codes; unclassified (1 source) Gestation period, 27 weeks; Translations: [27 weeks gestation of ] 05-31-2024 Episodic Residual codes; unclassified (1 source) Gestation period, 29 weeks; Translations: [29 weeks gestation of ] 06-14-2024 Episodic Residual codes; unclassified (2 sources) Gestation period, 31 weeks; Translations: [31 weeks gestation of ] 06-28-2024 Episodic Residual codes; unclassified (1 source) Gestation period, 34 weeks; Translations: [34 weeks gestation of ] 07-16-2024 Episodic Residual codes; unclassified (1 source) Gestation period, 35 weeks; Translations: [35 weeks gestation of ] 07-26-2024 Episodic Residual codes; unclassified (2 sources) Gestation period, 36 weeks; Translations: [36 weeks gestation of ] 07-29-2024 Episodic Residual codes; unclassified (1 source) Gestation period, 37 weeks; Translations: [37 weeks gestation of ] 08-09-2024 Episodic Residual codes; unclassified (1 source) Gestation period, 38 weeks; Translations: [38 weeks gestation of ] 08-16-2024 Episodic Residual codes; unclassified (1 source) Gestation period, 39 weeks; Translations: [39 weeks gestation of ] 08-22-2024 Episodic Residual codes; unclassified (2 sources) Gestation period, 40 weeks; Translations: [40 weeks gestation of ] 08-26-2024 Episodic Residual codes; unclassified (1 source) 27 weeks gestation of ; Translations: [27 weeks gestation of ] Onset: 05-31-2024 Episodic Residual codes; unclassified (1 source) 23 weeks gestation of ; Translations: [23 weeks gestation of ] Onset: 05-31-2024 Episodic Unclassified (20 sources) [facility] Education - COMMON Onset: 01-11-2024 01-11-2024 Unclassified (20 sources) Education - [place] Onset: 01-11-2024 01-11-2024 Past or Other Problems Problem Classification Problem Date Documented Da te Episodic/Chronic Hemorrhage during ; abruptio placenta; placenta previa (2 sources) Hemorrhage in early , unspecified; Translations: [Unspecified hemorrhage in early , antepartum condition or complication] Onset: 2024 2024 Episodic Other complications of (20 sources) Nausea and vomiting; Translations: [Vomiting of , unspecified] Onset: 06-09-2016 Resolved: 01-26-2021 01-01-2024 Episodic Other complications of (20 sources) History of delivery of macrosomal ; Translations: [Supervision of with other poor reproductive or obstetric history, unspecified trimester] Onset: 01-15-2024 01-15-2024 Episodic Other complications of (20 sources) Diseases of the digestive system complicating , first trimester; Translations: [Other current conditions classifiable elsewhere of mother, antepartum condition or complication] Onset: 01-15-2024 Resolved: 04-22-2024 01-15-2024 Episodic Other complications of (20 sources) Urinary tract infection in ; Translations: [Unspecified infection of urinary tract in , unspecified trimester] Onset: 01-17-2024 01-17-2024 Episodic Other complications of (20 sources) Chlamydia trachomatis infection in ; Translations: [Other maternal infectious and parasitic diseases complicating , unspecified trimester] Onset: 01-17-2024 01-17-2024 Episodic Other complications of (20 sources) Teenage ; Translations: [Supervision of other high risk pregnancies, unspecified trimester] Onset: 06-09-2016 Resolved: 01-26-2021 11-02-2021 Episodic Other complications of (20 sources) Rubella non-immune; Translations: [Supervision of other high risk pregnancies, unspecified trimester] Onset: 07-28-2016 Resolved: 01-26-2021 01-26-2021 Episodic Other complications of (14 sources) Abnormal findings on screening of mother; Translations: [Supervision of other high risk pregnancies, unspecified trimester] Onset: 09-20-2016 Resolved: 01-26-2021 11-02-2021 Episodic Other complications of (20 sources) Vomiting of , unspecified; Translations: [Unspecified vomiting of , unspecified as to episode of care or not applicable] Onset: 06-09-2016 Resolved: 01-26-2021 05-31-2024 Episodic Other complications of (1 source) Supervision of high risk , unspecified, first trimester; Translations: [Encounter for supervision of high risk in first trimester, antepartum] Onset: 01-15-2024 Episodic Other and delivery including normal (8 sources) Early stage of ; Translations: [Encounter for supervision of normal , unspecified, unspecified trimester] Onset: 12-29-2023 12-29-2023 Episodic Comment on above: System added from do cumentation. Status documented as Yes on Admission Ovarian cyst (20 sources) Cyst of right ovary; Translations: [Unspecified ovarian cyst, right side] Onset: 01-15-2024 01-15-2024 Episodic Residual codes; unclassified (20 sources) Family history of diabetes mellitus; Translations: [Family history of diabetes mellitus] Onset: 01-15-2024 01-15-2024 Episodic Residual codes; unclassified (20 sources) FH: Congenital anomaly; Translations: [Family history of other congenital malformations, deformations and chromosomal abnormalities] Onset: 06-09-2016 Resolved: 01-26-2021 11-02-2021 Episodic Residual codes; unclassified (2 sources) 18 weeks gestation of ; Translations: [18 weeks gestation of ] Onset: 03-29-2024 Episodic Residual codes; unclassified (1 source) 8 weeks gestation of ; Translations: [8 weeks gestation of ] Onset: 02-15-2024 Episodic Residual codes; unclassified (1 source) 12 weeks gestation of ; Translations: [12 weeks gestation of ] Onset: 02-15-2024 Episodic Screening and history of mental health and substance abuse codes (20 sources) H/O: depression; Translations: [Personal history of other mental and behavioral disorders] Onset: 06-09-2016 Resolved: 01-26-2021 11-02-2021 Episodic Viral infection (1 source) Disease caused by 2019-nCoV; Translations: [COVID-19] Onset: 10-25-2022 Results Test Name Value Interpretation Reference Range Facil ity URINE OB DIP B/Oon Glucose Ql (U) Negative Neg mg/dL [facility] Interpretation and review of laboratory results Normal [facility] Protein.monoclonal (U) [Mass/Vol] Negative Neg mg/dL [facility] CNPNon 08-26-2024 CNPN Telephone ([id number]) LUZMARIA HEARN ([id number]) 1 F Date Time Provider Department 08/26/24 VALENTINA WEINSTEIN [id number] During your visit today, we recorded the following information about you: Valentina Weinstein RN 08/26/2024 11:53 AM Signed 1st and final risk assessment form submitted 08/26/2024. 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 - aspirin, enteric coated (ASPIRIN, ENTERIC COATED) 81 mg EC tablet Take 1 tablet by mouth once daily. - ondansetron orally disintegrating (ZOFRAN ODT) 4 mg disintegrating tablet Take 2 tablets by mouth every 8 hours as needed for nausea/vomiting. - prochlorperazine (COMPAZINE) 10 mg tablet Take 1 tablet by mouth every 6 hours as needed (nausea). - PNV no.95/ferrous fum/folic ac ( ORAL) Take 1 tablet by mouth once daily. Problem List As Of Date 08/26/2024 Noted Resolved High risk teen [O09.899] 06/09/2016 01/26/2021 History of depression [Z86.59] 06/09/2016 01/26/2021 Quit smoking [Z87.891] 06/09/2016 01/26/2021 Nausea and vomiting during [O21.9] 06/09/2016 01/26/2021 Family history of defects [Z82.79] 06/09/2016 01/26/2021 Rubella non-immune status, antepartum [O09.899,*07/28/2016 01/26/2021 High risk with elevated human chorion*09/20/2016 01/26/2021 Nausea/vomiting in [O21.9] 01/01/2024 Family history of diabetes mellitus [Z83.3] 01/15/2024 Encounter for supervision of high risk pregnanc*01/15/2024 History of macrosomia in infant in prior pregna*01/15/2024 Ovarian cyst, right [N83.201] 01/15/2024 Constipation during in first trimeste*01/15/2024 04/22/2024 Obesity in , antepartum [O99.210] 01/15/2024 UTI (urinary tract infection) in , ant*01/17/2024 Chlamydia infection affecting [O98.81*01/17/2024 Heartburn during in third trimester [*07/26/2024 Positive GBS test [B95.1] 07/31/2024 Encounter Status:Closed by VALENTINA WEINSTEIN [facility] LUZMARIA HEARN ([id number]) 1 F Date Time Provider Department 08/26/24 JACKIE CANDELARIA During your visit today, we recorded the following information about you: Angela George RN 08/26/2024 12:47 PM Signed 40w2d Calling c/o bloody show. Noticed each time with wiping since she left [facility] last night (went in with contractions, but was discharged home). Blood is mixed with mucous and only noticing with wiping. Not needing to wear pad with it. Advised this can be normal especially after cervical exam like she had last night in [facility]. She just woke up since she was at [facility] so late and hasn't noticed movement yet. Advised to do kick counts and call if she does not get the 10 movements, or she notices regular contractions, bleeding or leaking fluid. She is wanting to know if there is a plan for her induction to be rescheduled? She was supposed to get it done on Monday, but was postponed all weekend because [facility] was busy. SAFIA Dutton Jessica, APRN.CN 08/26/2024 1:33 PM Signed Please have patient schedule appt for Sparkle Estrada RN 08/26/2024 2:17 PM Signed 2 more bloody shows since last call-last one looked like mucous plug Not cramping as much Contractions [id number], lasting 30-60 seconds long. Not as intense as last night Not getting 6-10 kick counts in one hr period, but is moving From 11am to now, Pt has only felt 2 or 3 times, not really kicking or being active. Per NEENA, okay to schedule Pt now for NST. Appt scheduled. Pt states she will be here in 5-10 minutes. Sparkle Estrada RN Allergies As of Date: 08/26/2024 Noted Allergy Reaction MORPHINE 01/11/2024 8 - GI Upset Date Reviewed: 08/22/2024 Reviewed by: Nallely Romero MD - Fully Assessed Reason for Visit: Question (OB Question) [1552] Prescriptions as of 08/26/2024 - pantoprazole DR (PROTONIX) 40 mg tablet Take 1 tablet by mouth once daily. - aspirin, enteric coated (ASPIRIN, ENTERIC COATED) 81 mg EC tablet Take 1 tablet by mouth once daily. - ondansetron orally disintegrating (ZOFRAN ODT) 4 mg disintegrating tablet Take 2 tablets by mouth every 8 hours as needed for nausea/vomiting. - prochlorperazine (COMPAZINE) 10 mg tablet Take 1 tablet by mouth every 6 hours as needed (nausea). - PNV no.95/ferrous fum/folic ac ( ORAL) Take 1 tablet by mouth once daily. Problem List As Of Date 08/26/2024 Noted Resolved High risk teen [O09.899] 06/09/2016 01/26/2021 History of depression [Z86.59] 06/09/2016 01/26/2021 Quit smoking [Z87.891] 06/09/2016 01/26/2021 Nausea and vomiting during [O21.9] 06/09/2016 01/26/2021 Family history of defects [Z82.79] 06/09/2016 01/26/2021 Rubella non-immune status, antepartum [O09.899,*07/28/2016 01/26/2021 High risk with elevated human chorion*09/20/2016 01/26/2021 Nausea/vomiting in [O21.9] 01/01/2024 Family history of diabetes mellitus [Z83.3] 01/15/2024 Encounter for supervision of high risk pregnanc*01/15/2024 History of macrosomia in infant in prior pregna*01/15/2024 Ovarian cyst, right [N83.201] 01/15/2024 Constipation during in first trimeste*01/15/2024 04/22/2024 Obesity in , antepartum [O99.210] 01/15/2024 UTI (urinary tract infection) in , ant*01/17/2024 Chlamydia infection affecting [O98.81*01/17/2024 Heartburn during in third trimester [*07/26/2024 Positive GBS test [B95.1] 07/31/2024 Encounter Status:Closed by SPARKLE ESTRADA on 08/26/24 Normal [facility] URINE OB DIP B/Oon Glucose Ql (U) Negative Neg mg/dL [facility] Interpretation and review of laboratory results Normal [facility] Protein.monoclonal (U) [Mass/Vol] Negative Neg mg/dL [facility] CNPNon 08-23-2024 CNPN Telephone (JERRYWM) LUZMARIA HEARN ([id number]) 1 F Date Time Provider Department 08/23/24 VALENTINA YO During your visit today, we recorded the following information about you: Valentina Falcon, SAFIA 08/23/2024 8:17 AM Signed 39w6d Patient was scheduled this AM for an induction, but [facility] is too full at this time. Patient was told to call the office about rescheduling. SAFIA Thomas Jennifer, RN 08/23/2024 9:08 AM Signed Patient sent a Parkmobilet message after calling in to the office with more questions. SAFIA Thomas Jennifer, MD 08/23/2024 10:31 AM Signed My chart message sent to pt Allergies As of Date: 08/23/2024 Noted Allergy Reaction MORPHINE 01/11/2024 8 - GI Upset Date Reviewed: 08/22/2024 Reviewed by: Nallely Romero MD - Fully Assessed Reason for Visit: Induction of Labor [Other] Prescriptions as of 08/23/2024 - pantoprazole DR (PROTONIX) 40 mg tablet Take 1 tablet by mouth once daily. - aspirin, enteric coated (ASPIRIN, ENTERIC COATED) 81 mg EC tablet Take 1 tablet by mouth once daily. - ondansetron orally disintegrating (ZOFRAN ODT) 4 mg disintegrating tablet Take 2 tablets by mouth every 8 hours as needed for nausea/vomiting. - prochlorperazine (COMPAZINE) 10 mg tablet Take 1 tablet by mouth every 6 hours as needed (nausea). - PNV no.95/ferrous fum/folic ac ( ORAL) Take 1 tablet by mouth once daily. Problem List As Of Date 08/23/2024 Noted Resolved High risk teen [O09.899] 06/09/2016 01/26/2021 History of depression [Z86.59] 06/09/2016 01/26/2021 Quit smoking [Z87.891] 06/09/2016 01/26/2021 Nausea and vomiting during [O21.9] 06/09/2016 01/26/2021 Family history of defects [Z82.79] 06/09/2016 01/26/2021 Rubella non-immune status, antepartum [O09.899,*07/28/2016 01/26/2021 High risk with elevated human chorion*09/20/2016 01/26/2021 Nausea/vomiting in [O21.9] 01/01/2024 Family history of diabetes mellitus [Z83.3] 01/15/2024 Encounter for supervision of high risk pregnanc*01/15/2024 History of macrosomia in infant in prior pregna*01/15/2024 Ovarian cyst, right [N83.201] 01/15/2024 Constipation during in first trimeste*01/15/2024 04/22/2024 Obesity in , antepartum [O99.210] 01/15/2024 UTI (urinary tract infection) in , ant*01/17/2024 Chlamydia infection affecting [O98.81*01/17/2024 Heartburn during in third trimester [*07/26/2024 Positive GBS test [B95.1] 07/31/2024 Encounter Status:Closed by ANGELA GEORGE on 08/23/24 Normal [facility] URINE OB DIP B/Oon 4 Glucose Ql (U) Negative Neg mg/dL [facility] Interpretation and review of laboratory results Normal [facility] Protein.monoclonal (U) [Mass/Vol] trace Neg mg/dL [facility] URINE OB DIP B/Oon 4 Glucose Ql (U) Negative Neg mg/dL [facility] Protein.monoclonal (U) [Mass/Vol] Negative Neg mg/dL [facility] URINE OB DIP B/Oon 4 Glucose Ql (U) Negative Neg mg/dL [facility] Interpretation and review of laboratory results Normal [facility] Protein.monoclonal (U) [Mass/Vol] Negative Neg mg/dL [facility] CNCOon 07-29-2024 CNCO Letter Text Normal [facility] Examination level ultrasound on 07-29-2024 [facility] Radiology Study observation (narrative) [facility] ROUTINE, GROUP B ST REP PCRon 07-26-2024 ROUTINE, GROUP B STREP PCR GROUP B STREP PCR: Positive for Group B Streptococcus by PCR. Abnormal [facility] Comment on above: Performed By: #### G BPCR ####[facility] LABCLIA [id number] [address] [place] URINE OB DIP B/Oon 4 Glucose Ql (U) Negative Neg mg/dL [facility] Interpretation and review of laboratory results Normal [facility] Protein.monoclonal (U) [Mass/Vol] Negative Neg mg/dL [facility] URINE OB DIP B/Oon 4 Glucose Ql (U) Negative Neg mg/dL [facility] Interpretation and review of laboratory results Normal [facility] Protein.monoclonal (U) [Mass/Vol] Negative Neg mg/dL [facility] CNPNon 07-03-2024 CNPN Telephone (OBGYWM) LUZMARIA HEARN ([id number]) 1 F Date Time Provider Department 07/03/24 JACKIE CANDELARIA During your visit today, we recorded the following information about you: Jackie Candelaria APRN.CNM 07/03/2024 3:15 PM Signed Patient seen in [facility] on 06/28/24. Urine culture returned positive but no sensitivity yet. Can you please follow up with provider after results for treatment due to symptoms and colony count. Jackie Candelaria APRN.Sparkle Urbina RN 07/03/2024 3:23 PM Signed Lab called and states will fax results. SAFIA Quiros Tara, RN 07/03/2024 3:53 PM Signed Lab faxed records from Pt seen in [facility] on 07/01/24. Urine sensitivity still pending at this time. Please keep phone note open for follow-up. SAFIA Quiros Jennifer, RN 07/05/2024 9:44 AM Signed Scan on 07/05/2024 9:07 AM by Provider, External, PARavenC: Urine Oneida Mattson APRN.CNM 07/05/2024 9:59 AM Signed Reviewed. Rx sent for Ampicillin 500 mg PO every 6 hours x 5 days.. Please notify patient. Oneida Mattson APRN.CNM Cielo Lee RN 07/05/2024 10:25 AM Signed Patient notified of results, verbalizes understanding of instructions. Cielo Lee RN Allergies As of Date: 07/03/2024 Noted Allergy Reaction MORPHINE 01/11/2024 8 - GI Upset Date Reviewed: 06/28/2024 Reviewed by: Valentina Yo MD - Fully Assessed Order(s):ampicillin (PRINCIPEN) 500 mg capsuleTake 1 capsule by mouth four times daily for 5 days.Disp: 20 capsuleRfl: 0 Prescriptions as of 07/05/2024 - ampicillin (PRINCIPEN) 500 mg capsule Take 1 capsule by mouth four times daily for 5 days. - aspirin, enteric coated (ASPIRIN, ENTERIC COATED) 81 mg EC tablet Take 1 tablet by mouth once daily. - ondansetron orally disintegrating (ZOFRAN ODT) 4 mg disintegrating tablet Take 2 tablets by mouth every 8 hours as needed for nausea/vomiting. - famotidine (PEPCID) 20 mg tablet Take 1 tablet by mouth two times a day. - prochlorperazine (COMPAZINE) 10 mg tablet Take 1 tablet by mouth every 6 hours as needed (nausea). - PNV no.95/ferrous fum/folic ac ( ORAL) Take 1 tablet by mouth once daily. Problem List As Of Date 07/03/2024 Noted Resolved High risk teen [O09.899] 06/09/2016 01/26/2021 History of depression [Z86.59] 06/09/2016 01/26/2021 Quit smoking [Z87.891] 06/09/2016 01/26/2021 Nausea and vomiting during [O21.9] 06/09/2016 01/26/2021 Family history of defects [Z82.79] 06/09/2016 01/26/2021 Rubella non-immune status, antepartum [O09.899,*07/28/2016 01/26/2021 High risk with elevated human chorion*09/20/2016 01/26/2021 Nausea/vomiting in [O21.9] 01/01/2024 Family history of diabetes mellitus [Z83.3] 01/15/2024 Encounter for supervision of high risk pregnanc*01/15/2024 History of macrosomia in in prior pregna*01/15/2024 Ovarian cyst, right [N83.201] 01/15/2024 Constipation during in first trimeste*01/15/2024 04/22/2024 Obesity in , antepartum [O99.210] 01/15/2024 UTI (urinary tract infection) in , ant*01/17/2024 Chlamydia infection affecting [O98.81*01/17/2024 Prescriptions ordered this encounter Disp Refills Start End AMPICILLIN 500 MG CAPSULE 20 c* 0 07/05/2024 07/10/2024 Route: ORAL Sig: Take 1 capsule by mouth four times daily for 5 days. Encounter Status:Closed by ONEIDA MATTSON on 07/05/24 Normal [facility] Examination level ultrasound on 06-28-2024 [facility] Radiology Study observation (narrative) [facility] C. trachomatis+N. gonorrhoea e DNA LILIA+probe Ql (Unsp spec)on 05-31-2024 C. trachomatis rRNA LILIA+probe Ql (Unsp spec) Negative Normal Negative for Chlamydia trachomatis by amplificaton [facility] Comment on above: Order Comment: Speci men Type: SWABOrdering Facility: [facility] Address: [address] [place] [address] Performed By: #### 3 6902-5 ####[facility] LABIA [id number] [place] [address] [place] N. gonorrhoeae rRNA LILIA+probe Ql (Unsp spec) Negative Normal Negative for Neisseria gonorrhoeae by amplification [facility] Comment on above: Order Comment: Speci men Type: SWABOrdering Facility: [facility] Address: [address] [place] [address] Performed By: #### 3 6902-5 ####[facility] LABCLIA [id number] [place] [address] [place] CBC W Auto Differential pane l (Bld)on 05-31-2024 Basophils (Bld) [#/Vol] 0.08 10*3/uL Normal <0.11 [facility] Comment on above: Order Comment: Speci men Type: BLOOD SPECIMENOrdering Facility: [facility] Address: [address] [place] [address] Performed By: #### 5 7021-8 ####[facility] ROCHELLEWNCLIA [id number] [place] [address] [place] Basophils/100 WBC (Bld) 0.5 % Normal [facility] Comment on above: Order Comment: Speci men Type: BLOOD SPECIMENOrdering Facility: [facility] Address: [address] [place] [address] Performed By: #### 5 7021-8 ####[facility]ALLIA [id number] [place] [address] [place] Differential cell count method Nom (Bld) Auto Normal [facility] Comment on above: Order Comment: Speci men Type: BLOOD SPECIMENOrdering Facility: [facility] Address: [address] [place] [address] Performed By: #### 5 7021-8 ####[facility] [id number] [place] [address] [place] Eosinophils (Bld) [#/Vol] 0.29 10*3/uL Normal <0.46 [facility] Comment on above: Order Comment: Speci men Type: BLOOD SPECIMENOrdering Facility: [facility] Address: [address] [place] [address] Performed By: #### 5 7021-8 ####[facility]ITALNCLIA [id number] [place] [address] [place] Eosinophils/100 WBC (Bld) 1.6 % Normal [facility] Comment on above: Order Comment: Speci men Type: BLOOD SPECIMENOrdering Facility: [facility] Address: [address] [place] [address] Performed By: #### 5 7021-8 ####[facility] H[facility]ITALNCLIA [id number] [place] [address] [place] Erythrocyte distribution width (RBC) [Ratio] 12.7 % Normal 11.5-15.0 [facility] Comment on above: Order Comment: Speci men Type: BLOOD SPECIMENOrdering Facility: [facility] Address: [address] [place] [address] Performed By: #### 5 7021-8 ####[facility] [id number] [place] [address] [place] Hematocrit (Bld) [Volume fraction] 36.0 % Normal 36.0-46.0 [facility] Comment on above: Order Comment: Speci men Type: BLOOD SPECIMENOrdering Facility: [facility] Address: [address] [place] [address] Performed By: #### 5 7021-8 ####[facility] [id number] [place] [address] [place] Hemoglobin (Bld) [Mass/Vol] 12.3 g/dL Normal 11.5-15.5 [facility] Comment on above: Order Comment: Speci men Type: BLOOD SPECIMENOrdering Facility: [facility] Address: [address] [place] [address] Performed By: #### 5 7021-8 ####[facility] [id number] [place] [address] [place] Immature granulocytes (Bld) [#/Vol] 0.24 10*3/uL High <0.10 [facility] Comment on above: Order Comment: Speci men Type: BLOOD SPECIMENOrdering Facility: [facility] Address: [address] [place] [address] Performed By: #### 5 7021-8 ####[facility] [id number] [place] [address] [place] Immature granulocytes/100 WBC (Bld) 1.4 % Normal [facility] Comment on above: Order Comment: Speci men Type: BLOOD SPECIMENOrdering Facility: [facility] Address: [address] [place] [address] Performed By: #### 5 7021-8 ####[facility] [id number] [place] [address] [place] Lymphocytes (Bld) [#/Vol] 2.80 10*3/uL Normal 1.00-4.00 [facility] Comment on above: Order Comment: Speci men Type: BLOOD SPECIMENOrdering Facility: [facility] Address: [address] [place] [address] Performed By: #### 5 7021-8 ####[facility] [id number] [place] [address] [place] Lymphocytes/100 WBC (Bld) 15.8 % Normal [facility] Comment on above: Order Comment: Speci men Type: BLOOD SPECIMENOrdering Facility: [facility] Address: [address] [place] [address] Performed By: #### 5 7021-8 ####[facility] [id number] [place] [address] [place] MCH (RBC) [Entitic mass] 29.9 pg Normal 26.0-34.0 [facility] Comment on above: Order Comment: Speci men Type: BLOOD SPECIMENOrdering Facility: [facility] Address: [address] [place] [address] Performed By: #### 5 7021-8 ####[facility] [id number] [place] [address] [place] MCHC (RBC) [Mass/Vol] 34.2 g/dL Normal 30.5-36.0 [facility] Comment on above: Order Comment: Speci men Type: BLOOD SPECIMENOrdering Facility: [facility] Address: [address] [place] [address] Performed By: #### 5 7021-8 ####[facility] ROCHELLEClarisaNCSTEVEN [id number] [place] [address] [place] MCV (RBC) [Entitic vol] 87.4 fL Normal 80.0-100.0 [facility] Comment on above: Order Comment: Speci men Type: BLOOD SPECIMENOrdering Facility: [facility] Address: [address] [place] [address] Performed By: #### 5 7021-8 ####[facility] HOSPITALNCDivya [id number] [place] [address] [place] Monocytes (Bld) [#/Vol] 1.09 10*3/uL High <0.87 [facility] Comment on above: Order Comment: Speci men Type: BLOOD SPECIMENOrdering Facility: [facility] Address: [address] [place] [address] Performed By: #### 5 7021-8 ####[facility] H[facility]ITALNCLIA [id number] [place] [address] [place] Monocytes/100 WBC (Bld) 6.1 % Normal [facility] Comment on above: Order Comment: Speci men Type: BLOOD SPECIMENOrdering Facility: [facility] Address: [address] [place] [address] Performed By: #### 5 7021-8 ####[facility] HOSPITALNCLIA [id number] [place] [address] [place] Neutrophils (Bld) [#/Vol] 13.24 10*3/uL High 1.45-7.50 [facility] Comment on above: Order Comment: Speci men Type: BLOOD SPECIMENOrdering Facility: [facility] Address: [address] [place] [address] Performed By: #### 5 7021-8 ####[facility] MILLWNCLIA [id number] [place] [address] [place] Neutrophils/100 WBC (Bld) 74.6 % Normal [facility] Comment on above: Order Comment: Speci men Type: BLOOD SPECIMENOrdering Facility: [facility] Address: [address] [place] [address] Performed By: #### 5 7021-8 ####[facility]ALL[facility] [id number] [place] [address] [place] Nucleated RBC (Bld) [#/Vol] 10*3/uL Normal <0.01 [facility] Comment on above: Order Comment: Speci men Type: BLOOD SPECIMENOrdering Facility: [facility] Address: [address] [place] [address] Performed By: #### 5 7021-8 ####[facility] [id number] [place] [address] [place] Nucleated RBC/100 WBC (Bld) [Ratio] 0.0 /100 WBC Normal [facility] Comment on above: Order Comment: Speci men Type: BLOOD SPECIMENOrdering Facility: [facility] Address: [address] [place] [address] Performed By: #### 5 7021-8 ####[facility]ALL[facility] [id number] [place] [address] [place] Platelet mean volume (Bld) [Entitic vol] 9.4 fL Normal 9.0-12.7 [facility] Comment on above: Order Comment: Speci men Type: BLOOD SPECIMENOrdering Facility: [facility] Address: [address] [place] [address] Performed By: #### 5 7021-8 ####[facility] HOSPITALNCLI [id number] [place] [address] [place] Platelets (Bld) [#/Vol] 348 10*3/uL Normal 150-400 [facility] Comment on above: Order Comment: Speci men Type: BLOOD SPECIMENOrdering Facility: [facility] Address: [address] [place] [address] Performed By: #### 5 7021-8 ####[facility] HOSPITALNCA [id number] [place] [address] [place] RBC (Bld) [#/Vol] 4.12 10*6/uL Normal 3.90-5.20 [facility] Comment on above: Order Comment: Speci men Type: BLOOD SPECIMENOrdering Facility: [facility] Address: [address] [place] [address] Performed By: #### 5 7021-8 ####[facility]A [id number] [place] [address] [place] WBC (Bld) [#/Vol] 17.74 10*3/uL High 3.70-11.00 [facility] Comment on above: Order Comment: Speci men Type: BLOOD SPECIMENOrdering Facility: [facility] Address: [address] [place] [address] Performed By: #### 5 7021-8 ####[facility] [id number] [place] [address] [place] GESTATIONAL GLUCOSE SCREEN, 1-HOUR, 50 GRAM, NON-FASTINGon 05-31-2024 Glucose [Mass/Vol] 116 mg/dL Normal 74-134 [facility] Comment on above: Order Comment: Speci men Type: BLOOD SPECIMENOrdering Facility: [facility] Address: [address] [place] [address] Result Comment: [facility] Congress of Obstetricians and Gynecologists (Anupam/Lee) guidelines state a gestational diabetes mellitus positive screen is made, in women not previously diagnosed with overt diabetes, when the 1 hr plasma glucose level is equal to or above 140 mg/dL. [facility] [employer] [facility] recommends a 135 mg/dL cutoff. Performed By: #### G LTGST ####[facility] [id number] [place] [address] [place] Reagin and Treponema pallidu m IgG and IgM [Interp]on 05-31-2024 T. pallidum IgG+IgM IA Ql (S) Non-Reactive Normal Nonreactive [facility] Comment on above: Order Comment: Speci men Type: BLOOD SPECIMENOrdering Facility: [facility] Address: [address] [place] [address] Performed By: #### 7 3752-8 ####[facility] LABIA [id number] [place] [address] [place] Reagin+T pallidum IgG+IgM Se rPl-Impon 05-31-2024 Reagin and Treponema pallidum IgG and IgM [Interp] Cannot exclude recent Treponemal infection if specimen collected within 7-10 days after appearance of suspect lesions or 2-3 weeks after an exposure. Clinical correlation is required. Normal [facility] Comment on above: Order Comment: Speci men Type: BLOOD SPECIMENOrdering Facility: [facility] Address: [address] [place] [address] Performed By: #### 7 3752-8 ####[facility] LABIA [id number] [place] [address] [place] C. trachomatis+N. gonorrhoea e DNA LILIA+probe Ql (Unsp spec)on 05-03-2024 C. trachomatis rRNA LILIA+probe Ql (Unsp spec) Unable to detect Chlamydia trachomatis due to inhibitory substances. Submit repeat specimen if clinically indicated. Abnormal Negative for Chlamydia trachomatis by amplificaton [facility] Comment on above: Order Comment: Speci men Type: SWABOrdering Facility: [facility] Address: [address] [place] [address] Performed By: #### 3 6902-5 ####[facility] LABCLIA [id number] [place] [address] [place] N. gonorrhoeae rRNA LILIA+probe Ql (Unsp spec) Unable to detect Neisseria gonorrhoeae due to inhibitory substances. Submit repeat specimen if clinically indicated. Abnormal Negative for Neisseria gonorrhoeae by amplification [facility] Comment on above: Order Comment: Speci men Type: SWABOrdering Facility: [facility] Address: [address] [place] [address] Performed By: #### 3 6902-5 ####[facility] LABCLIA [id number] [address] [place] CNOVon 04-16-2024 CNOV Office Visit (UCWSTR ) MIREILLELUZMARIA Lazcano ([id number]) 1 F Date Time Provider Department 04/16/24 6:45 PM SANAZ [facility] During your visit today, we recorded the following information about you: Temperature Pulse Respiration Blood pressure 99.5 degrees 98/minute 20/minute 132/82 Weight 103 kg Sanaz Kaiser PA 04/16/2024 7:07 PM Signed This note was created using [employer]. Subjective Luzmariajayden Hearn is a 19 year old female. HPI 19-year-old female presents for cough, fever, chills, sore throat starting yesterday. Patient is 21 weeks . Patient states she started feeling yesterday with some nasal congestion, cough, sore throat. She had a temp of 101.1 ?F. She states her temp today has been around 99. She has not had any Tylenol today. Patient states she has had nausea throughout her , unchanged. She has had a few episodes of vomiting today. She is still able to keep down fluids. She has normal movement. No vaginal bleeding, discharge, dysuria. She denies any chest pain. She states yesterday she felt a little short of breath with coughing and vomited after coughing, but no shortness of breath today or at rest. No chest pain. No sick contacts. She had COVID about a month ago. All of those symptoms resolved. No other complaint. PAST MEDICAL HISTORY Diagnosis Date Complication of anesthesia vomiting after surgery Depression History of macrosomia in infant in prior , currently 01/15/2024 PAST SURGICAL HISTORY Procedure Laterality Date LAPAROSCOPY SURG CHOLECYSTECTOMY 11/06/2014 Cholecystectomy, lap NEXPLANON INSERTION 03/27/2017 NEXPLANON REMOVAL 2020 ALLERGIES Morphine MEDICATIONS ondansetron orally disintegrating (ZOFRAN ODT) 4 mg disintegrating tablet Take 2 tablets by mouth every 8 hours as needed for nausea/vomiting. famotidine (PEPCID) 20 mg tablet Take 1 tablet by mouth two times a day. prochlorperazine (COMPAZINE) 10 mg tablet Take 1 tablet by mouth every 6 hours as needed (nausea). PNV no.95/ferrous fum/folic ac ( ORAL) Take by mouth. FAMILY HISTORY Problem Relation Age of Onset Hypertension Father Stroke Father multiple Heart disease Father Hypertension Maternal Grandmother Diabetes Paternal Grandfather Prostate Cancer Paternal Grandfather Breast Cancer Maternal Aunt Psychiatry Maternal Aunt Psychiatry Maternal Aunt Seizures Maternal Aunt Psychiatry Maternal Uncle Social History Tobacco Use Smoking status: Never Passive exposure: Never Smokeless tobacco: Never Vaping Use Vaping Use: Never used Substance Use Topics Alcohol use: No Drug use: No Review of Systems Constitutional: Positive for chills and fever. HENT: Positive for congestion and sore throat. Negative for ear pain. Respiratory: Positive for cough. Negative for shortness of breath. Cardiovascular: Negative for chest pain. Gastrointestinal: Negative for diarrhea and vomiting. Objective BP 132/82 Pulse 98 Temp 37.5 ?C (99.5 ?F) Resp 20 Wt 103 kg (227 lb 1.2 oz) LMP 11/18/2023 (Approximate) SpO2 96% BMI 36.93 kg/m? Physical Exam Vitals and nursing note reviewed. Constitutional: General: She is not in acute distress. Appearance: Normal appearance. She is not toxic-appearing. HENT: Right Ear: Tympanic membrane and ear canal normal. Left Ear: Tympanic membrane and ear canal normal. Nose: Nose normal. Mouth/Throat: Mouth: Mucous membranes are moist. Pharynx: Uvula midline. Posterior oropharyngeal erythema present. No oropharyngeal exudate. Tonsils: No tonsillar exudate. 1+ on the right. 1+ on the left. Eyes: Conjunctiva/sclera: Conjunctivae normal. Cardiovascular: Rate and Rhythm: Regular rhythm. Tachycardia present. Pulmonary: Effort: Pulmonary effort is normal. Breath sounds: Normal breath sounds. No wheezing, rhonchi or rales. Abdominal: General: Bowel sounds are normal. Palpations: Abdomen is soft. Tenderness: There is no abdominal tenderness. Neurological: Mental Status: She is alert. Assessment and Plan ASSESSMENT/PLAN: 1. Fever, unspecified fever cause - ICD9: 780.60, ICD10: R50.9 (primary diagnosis) - Strep negative - INFLUENZA AANDB MOLECULAR (POC)- negative -Suspect viral URI. Symptoms x 1 day. Lungs clear on exam. Pulse ox 96% on room air. No indication for antibiotic at this time as I have low suspicion for bacterial pathology. Suspect viral. -Recommend follow-up with OB closely and PCP if URI symptoms/fever persists. -Advised patient if she develops chest pain, shortness of breath, inability keep down fluids, intractable fever, go to ER. -Discussed she may use Tylenol to help with fever, and she was also given a list of [id number]-[id number] safe medications for URI symptoms. 2. Sore throat - ICD9: 462, ICD10: J02.9 - suspect viral - Group A (more content not included)... Normal [facility] INFLUENZA A&B MOLECULAR (POC )on 04-16-2024 Flu A (POCT) Negative Negative [facility] Flu B (POCT) Negative Negative [facility] Procedural Control Valid [facility] Location:[facility], [address] [place] [address], [place], [address] [facility] POINT OF CARE [facility] STREP A MOLECULAR (POC)on Procedural Control Valid [facility] Strep A (POCT) Negative Negative [facility] ALPHA FETOPRO MATERNALon AFP, MATERNAL 0.89 MoM Normal [facility] Comment on above: Order Comment: Speci men Type: BLOOD SPECIMEN Ordering Facility: [facility] Address: [address] [id number] Result Comment: 45.0 8 ng/mL Performed By: #### A FPMAT #### [facility] CLIA [id number] [address] [place], [place] [id number] [place] DATE OF COLLECTION #1 04/11/24 [facility] Comment on above: Order Comment: Speci men Type: BLOOD SPECIMEN Ordering Facility: [facility] Address: [address] [place] [address] Performed By: #### A FPMAT #### [facility] CLIA [id number] [address] [place] [address] [place] DATE RECEIVED 04/12/24 [facility] Comment on above: Order Comment: Speci men Type: BLOOD SPECIMEN Ordering Facility: [facility] Address: [address] [place] [address] Performed By: #### A FPMAT #### [facility] CLIA [id number] [address] [place], [place] [id number] [place] JOSE J 08/24/24 [facility] Comment on above: Order Comment: Speci men Type: BLOOD SPECIMEN Ordering Facility: [facility] Address: [address] [place] [address] Performed By: #### A FPMAT #### [facility] CLIA [id number] [address] [place] [address] [place] GESTATION AT DATE OF SAMPLE 20 weeks 5 days (by dates) [facility] Comment on above: Order Comment: Speci men Type: BLOOD SPECIMEN Ordering Facility: [facility] Address: [address] [place] [address] Performed By: #### A FPMAT #### [facility] CLIA [id number] [address] [place], [place] [id number] [place] INSULIN DEPENDENT DIABETES None [facility] Comment on above: Order Comment: Speci men Type: BLOOD SPECIMEN Ordering Facility: [facility] Address: [address] [place] [address] Performed By: #### A FPMAT #### [facility] CLIA [id number] [address] [place] [address] OF LIV IVF No [facility] Comment on above: Order Comment: Speci men Type: BLOOD SPECIMEN Ordering Facility: [facility] Address: [address] [place] [address] Performed By: #### A FPMAT #### [facility] CLIA [id number] [address] [place] [address] OF LIV LMP 11/18/23 [facility] Comment on above: Order Comment: Haliei men Type: BLOOD SPECIMEN Ordering Facility: [facility] Address: [address] [place] [address] Performed By: #### A FPMAT #### [facility] CLIA [id number] [address] [place] [address] [place] MATERNAL AFP COMMENT See comments below [facility] Comment on above: Order Comment: Speci men Type: BLOOD SPECIMEN Ordering Facility: [facility] Address: [address] [place] [address] Result Comment: INTE RPRETATION Screening result : Screen negative Risk of NTD : 1 in 5,700 Comment : The interpretation is for NTD only A screen negative result does not exclude the possibility of a neural tube defect, because screening does not detect all affected pregnancies Performed By: #### A FPMAT #### [facility] CLIA [id number] [address] [place] [address] OF LIV MATERNAL AGE AT JOSE J 19 years [facility] Comment on above: Order Comment: Speci men Type: BLOOD SPECIMEN Ordering Facility: [facility] Address: [address] [place] [address] Performed By: #### A FPMAT #### [facility] CLIA [id number] [address] [place] [address] [place] PATIENT'S WEIGHT DAY OF COLLECTION 234 lb. [facility] Comment on above: Order Comment: Speci men Type: BLOOD SPECIMEN Ordering Facility: [facility] Address: [address] [place] [address] Performed By: #### A FPMAT #### [facility] CLIA [id number] [address] [place] [address] [place] INTERP-MATERNAL AFP Negative Normal Screen Negative [facility] Comment on above: Order Comment: Speci men Type: BLOOD SPECIMEN Ordering Facility: [facility] Address: [address] [place] [address] Performed By: #### A FPMAT #### [facility] CLIA [id number] [address] [place] [address] [place] PREVIOUS NTD None [facility] Comment on above: Order Comment: Speci men Type: BLOOD SPECIMEN Ordering Facility: [facility] Address: [address] [place] [address] Performed By: #### A FPMAT #### [facility] CLIA [id number] [address] [place] [address] [place] RISK OF NTD ;1:5700 [facility] Comment on above: Order Comment: Speci men Type: BLOOD SPECIMEN Ordering Facility: [facility] Address: [address] [place] [address] Performed By: #### A FPMAT #### [facility] CLIA [id number] [address] [place] [address] [place] SAMPLE #1 [id number] [facility] Comment on above: Order Comment: Speci men Type: BLOOD SPECIMEN Ordering Facility: [facility] Address: [address] [place] [address] Performed By: #### A FPMAT #### [facility] CLIA [id number] [address] [place] [address] STAFF REVIEW (MATERNAL SCREENS) Reviewed by Bora West MD, Ph.D ([id number]) [facility] Comment on above: Order Comment: Speci men Type: BLOOD SPECIMEN Ordering Facility: [facility] Address: [address] [place] [address] Performed By: #### A FPMAT #### [facility] CLIA [id number] [address] [place] [address] Examination level ultrasound on 04-11-2024 Indication anatomy survey. Obesity, BMI >30 Impression Patient presents for an anatomic survey in a complicated by class 2 obesity (BMI 39) and a known simple right ovarian cyst. NIPS was risk-reducing for aneuploidy. - biometry is consistent with the established gestational age - No malformations visualized within the limitations of sonographic evaluation at this gestational age and maternal acoustic properties - Normal amniotic fluid volume - A simple right ovarian cyst was visualized with overall stable size and appearance compared to prior evaluations (dimensions below); otherwise normal adnexa The patient was counseled regarding the sonographic findings and the potential for non-visualized malformations. Serial assessment of growth (32, 36 weeks) and weekly surveillance from 36 weeks until delivery are recommended. All questions were addressed. Thank you for the referral. Recommendations As above Maternal Assessment Height 165 cm Height (ft) 5 ft Height (in) 5 in Physical Exam Initial weight (lb) 239 lb Initial BMI 39.77 kg/m Method Transabdominal ultrasound examination. View: Adequate visualization Krueger . Number of fetuses: 1 Dating LMP on: 11/18/2023 GA by LMP 20 w + 5 d JOSE J by LMP: 08/24/2024 GA by prior assessment 20 w + 5 d JOSE J by prior assessment: 08/24/2024 Ultrasound examination on: 04/11/2024 GA by U/S based upon: AC, BPD, Femur, HC GA by U/S 20 w + 6 d JOSE J by U/S: 08/23/2024 Assigned: based on stated JOSE J, selected on 02/15/2024 Assigned GA 20 w + 5 d Assigned JOSE J: 08/24/2024 General Evaluation Cardiac activity present. FHR 141 bpm. movements: present. Presentation: cephalic Placenta: Placental site: posterior, fundal Umbilical cord: normal insertion, 3 vessel cord Amniotic fluid: Amount of AF: normal amount. MVP 4.7 cm Growth Overview Exam date GA BPD (mm) HC (mm) AC (mm) FL (mm) HL (mm) EFW (g) 04/11/2024 20w 5d 48.5 47% 182.7 48% 168.9 80% 32.2 38% 31 32% 392 59% Biometry Standard BPD 48.5 mm 20w 5d 47% Hadlock OFD 65.4 mm 20w 5d 74% Nicolaides HC 182.7 mm 20w 4d 48% Berta Cerebellum tr 21.8 mm 20w 4d 60% Hill Nuchal fold 3.8 mm AC 168.9 mm 21w 6d 80% Hadlock Femur 32.2 mm 20w 1d 38% Berta Humerus 31.0 mm 20w 2d 32% Berta EFW 392 g 20w 6d 59% Hadlock EFW (lb) 0 lb EFW (oz) 14 oz EFW by: Hadlock (HC-AC-FL) Extended Nocturnist Physician 4.6 mm CM 4.5 mm 29% Nicolaides Nasal bone 6.1 mm Extremities / Bony Struc FL / HC 0.18 15% Hadlock Other Structures FHR 141 bpm Anatomy Cranium: normal Lateral ventricles: normal Choroid plexus: normal Midline falx: normal Cavum septi pellucidi: normal Cerebellum: normal Cisterna magna: normal Head / Neck Vermis: normal Neck: normal Nuchal fold: normal Lips: normal Profile: normal Nose: normal Face Maxilla: normal Mandible: normal Orbits: normal Lens: normal 4-chamber view: normal RVOT view: normal LVOT view: normal 3-vessel view: normal 0-rvqwyw-eytvppf view: normal Heart / Thorax Situs: situs solitus (normal) Aortic arch view: normal Ductal arch view: normal SVC: normal IVC: normal Cardiac axis: normal Rt lung: normal Lt lung: normal Diaphragm: normal Cord insertion: normal Stomach: normal Kidneys: normal Bladder: normal Genitals: normal Abdomen Abdom. wall: normal Cervical spine: normal Thoracic spine: normal Lumbar spine: normal Sacral spine: normal Arms: normal Legs: normal Rt upper arm: normal Rt forearm: normal Rt hand: normal Rt fingers: normal Lt upper arm: normal Lt forearm: normal Lt hand: normal Lt fingers: normal Rt upper leg: normal Rt lower leg: normal Rt foot: normal Lt upper leg: normal Lt lower leg: normal Lt foot: normal sex: male sex: normal Wants to know sex: yes Maternal Structures Uterus / Cervix Uterus: Visualized Cervix: Visualized Approach: Transabdominal Cervical length 33.0 mm Ovaries / Tubes / Adnexa Rt ovary: Visualized Rt ovarian cyst(s): Cysts identified Rt ovarian cyst D1 66 mm Rt ovarian cyst D2 37 mm Rt ovarian cyst D3 48 mm Rt ovarian cyst mean 50.3 mm Rt ovarian cyst vol 61.374 cm Rt ovarian cyst findings: Unilocular simple cyst Lt ovary: Normal Performed By: Stella Williamson RDMS Read By: Kostas Huang M.D. MATERNAL MEDICINE [facility] Radiology Study observation (narrative) [facility] Jenny 04-09-2024 CNPN Telephone (OBGYWM) LUZMARIA HEARN ([id number]) 1 F Date Time Provider Department 04/09/24 JOCELYNN ARAIZA OBGYWM During your visit today, we recorded the following information about you: Jaren Schmidt, RN 04/09/2024 8:34 AM Signed I called patient because she did not do AFP that was ordered at last visit. Pt has upcoming appointment 04/11 in [place] for ultrasound. She is made aware she can do it at the lab at [place]. Discussed time limitations of testing Allergies As of Date: 04/09/2024 Noted Allergy Reaction MORPHINE 01/11/2024 8 - GI Upset Date Reviewed: 03/29/2024 Reviewed by: Dominique Lau MA - Fully Assessed Reason for Visit: Lab Orders [[id number]] Prescriptions as of 04/09/2024 - ondansetron orally disintegrating (ZOFRAN ODT) 4 mg disintegrating tablet Take 2 tablets by mouth every 8 hours as needed for nausea/vomiting. - famotidine (PEPCID) 20 mg tablet Take 1 tablet by mouth two times a day. - prochlorperazine (COMPAZINE) 10 mg tablet Take 1 tablet by mouth every 6 hours as needed (nausea). - PNV no.95/ferrous fum/folic ac ( ORAL) Take by mouth. Problem List As Of Date 04/09/2024 Noted Resolved High risk teen [O09.899] 06/09/2016 01/26/2021 History of depression [Z86.59] 06/09/2016 01/26/2021 Quit smoking [Z87.891] 06/09/2016 01/26/2021 Nausea and vomiting during [O21.9] 06/09/2016 01/26/2021 Family history of defects [Z82.79] 06/09/2016 01/26/2021 Rubella non-immune status, antepartum [O09.899,*07/28/2016 01/26/2021 High risk with elevated human chorion*09/20/2016 01/26/2021 Nausea/vomiting in [O21.9] 01/01/2024 Family history of diabetes mellitus [Z83.3] 01/15/2024 Encounter for supervision of high risk pregnanc*01/15/2024 History of macrosomia in infant in prior pregna*01/15/2024 Ovarian cyst, right [N83.201] 01/15/2024 Constipation during in first trimeste*01/15/2024 Obesity affecting in first trimester *01/15/2024 UTI (urinary tract infection) in , ant*01/17/2024 Chlamydia infection affecting [O98.81*01/17/2024 Encounter Status:Closed by JAREN SCHMIDT on 04/09/24 Normal [facility] .Auto Diffon 03-19-2024 Basophil, Absolute 0.1 10 3/mcL Normal 0.0-0.2 [facility] ([place]) Comment on above: Performed By: #### C JOHN, ENMANUEL, ANAHI, CMP, ANEU, HCGQ, GFR #### [address] [address] Basophils/100 WBC (Bld) 0.7 % Normal 0.0-2.5 [facility] ([place]) Comment on above: Performed By: #### C BC, ENMANUEL, W, CMP, ANEU, HCGQ, GFR #### [address] [address] Eosinophil, Absolute 0.1 10 3/mcL Normal 0.0-0.4 [facility] ([place]) Comment on above: Performed By: #### C JOHN, ENMANUEL, W, CMP, ANEU, HCGQ, GFR #### [address] [address] Eosinophils/100 WBC (Bld) 0.8 % Normal 0.0-7.0 [facility] ([place]) Comment on above: Performed By: #### C JOHN, ENMANUEL, W, CMP, ANEU, HCGQ, GFR #### [address] [address] Lymphocyte, Absolute 2.8 10 3/mcL Normal 0.8-3.9 [facility] ([place]) Comment on above: Performed By: #### C JOHN, ENMANUEL, W, CMP, ANEU, HCGQ, GFR #### [address] [address] Lymphocytes/100 WBC (Bld) 15.6 % Normal 10.0-50.0 [facility] ([place]) Comment on above: Performed By: #### C JOHN, ENMANUEL, ANAHI, CMP, ANEU, HCGQ, GFR #### [address] [address] Monocyte, Absolute 0.9 10 3/mcL Normal 0.2-1.0 [facility] ([place]) Comment on above: Performed By: #### C JOHN, ENMANUEL, W, CMP, ANEU, HCGQ, GFR #### [address] [address] Monocytes/100 WBC (Bld) 4.8 % Normal 1.7-13.0 [facility] ([place]) Comment on above: Performed By: #### C ENMANUEL LOPEZ MDW, CMP, ANEU, HCGQ, GFR #### Alexis [address] [address] Neutrophils/100 WBC (Bld) 78.1 % Normal 37.0-80.0 [facility] ([place]) Comment on above: Performed By: #### C ENMANUEL LOPEZ MDW, CMP, ANEU, HCGQ, GFR #### [address] [address] .GFRon 03-19-2024 GFR 184 ml/min/1.73sqm Normal [facility] ([place]) Comment on above: Result Comment: GFR Population mean for , Non- Americans Ages 20-29 = 116 mL/min/1.73 sq.m. Ages 30-39 = 107 mL/min/1.73 sq.m. Ages 40-49 = 99 mL/min/1.73 sq.m. Ages 50-59 = 93 mL/min/1.73 sq.m. Ages 60-69 = 85 mL/min/1.73 sq.m. Ages 70+ = 75 mL/min/1.73 sq.m. Chronic Kidney Disease: Less than 60 mL/min/1.73 square meters End Stage Renal Disease: Less than 15 mL/min/1.73 square meters Performed By: #### U TG, UA #### [address] [address] GFR Non- 152 ml/min/1.73sqm Normal [facility] ([place]) Comment on above: Result Comment: GFR Population mean for , Non- Americans Ages 20-29 = 116 mL/min/1.73 sq.m. Ages 30-39 = 107 mL/min/1.73 sq.m. Ages 40-49 = 99 mL/min/1.73 sq.m. Ages 50-59 = 93 mL/min/1.73 sq.m. Ages 60-69 = 85 mL/min/1.73 sq.m. Ages 70+ = 75 mL/min/1.73 sq.m. Chronic Kidney Disease: Less than 60 mL/min/1.73 square meters End Stage Renal Disease: Less than 15 mL/min/1.73 square meters Performed By: #### U AMICAO, UA #### [place] [address] .MDWon 03-19-2024 Monocyte Distribution Width 15.87 Normal 0.00-20.00 [facility] ([place]) Comment on above: Result Comment: For ED adult patients suspected of sepsis, MDW<=20.0 does not rule out sepsis or risk of sepsis Performed By: #### C ENMANUEL LOPEZ MDW, CMP, ANEU, HCGQ, GFR #### [place] [address] .NEUABSon 03-19-2024 Neutrophil, Absolute 14.2 10 3/mcL High 2.9-6.2 [facility] ([place]) Comment on above: Performed By: #### C ENMANUEL LOPEZ MDW, CMP, ANEU, HCGQ, GFR #### [place] [address] .Urinalysis Microscopic (AO) on 03-19-2024 UA Bacteria 3+ /hpf Abnormal [facility] ([place]) Comment on above: Performed By: #### U AMICAO, UA #### [place] [address] UA Mucous 2+ /hpf Normal [facility] ([place]) Comment on above: Performed By: #### U AMICAO, UA #### [place] [address] UA RBC 0-5 Abnormal None Seen [facility] ([place]) Comment on above: Performed By: #### U AMICAO, UA #### [place] [address] UA Squam Epithelial LOADED Abnormal None Seen [facility] ([place]) Comment on above: Performed By: #### U AMICAO, UA #### [address] [address] UA WBC LOADED Abnormal None Seen [facility] ([place]) Comment on above: Performed By: #### U TG UA #### [address] [address] CBCon 03-19-2024 Erythrocyte distribution width (RBC) [Ratio] 13.9 % Normal 11.5-14.5 [facility] ([place]) Comment on above: Performed By: #### C ENMANUEL LOPEZ MDW, CMP, ANEU, HCGQ, GFR #### [address] [address] Hematocrit (Bld) [Volume fraction] 37.4 % Normal 37.0-47.0 [facility] ([place]) Comment on above: Performed By: #### C ENMANUEL LOPEZ MDW, CMP, ANEU, HCGQ, GFR #### [address] [address] Hgb 12.9 G/dL Normal 12.0-16.0 [facility] ([place]) Comment on above: Performed By: #### C ENMANUEL LOPEZ MDW, CMP, ANEU, HCGQ, GFR #### [address] [address] MCH (RBC) [Entitic mass] 29.7 pg Normal 27.0-31.2 [facility] ([place]) Comment on above: Performed By: #### C ENMANUEL LOPEZ MDW, CMP, ANEU, HCGQ, GFR #### [address] [address] MCHC 34.5 G/dL Normal 33.0-37.0 [facility] ([place]) Comment on above: Performed By: #### C ENMANUEL LOPEZ MDW, CMP, ANEU, HCGQ, GFR #### [address] [address] MCV (RBC) [Entitic vol] 86.1 fL Normal 80.0-94.0 [facility] ([place]) Comment on above: Performed By: #### C ENMANUEL LOPEZ MDW, CMP, ANEU, HCGQ, GFR #### [address] [address] Platelet 337 10 3/mcL Normal 130-400 [facility] ([place]) Comment on above: Performed By: #### C JOHN, ANAHI SINGER, CMP, ANEU, HCGQ, GFR #### [address] [address] Platelet mean volume (Bld) [Entitic vol] 7.7 fL Normal 7.4-10.4 [facility] ([place]) Comment on above: Performed By: #### C ENMANUEL LOPEZ MDW, CMP, ANEU, HCGQ, GFR #### [address] [address] RBC 4.34 10 6/mcL Normal 4.20-5.40 [facility] ([place]) Comment on above: Performed By: #### C ENMANUEL LOPEZ MDW, CMP, ANEU, HCGQ, GFR #### [address] [address] WBC 18.2 10 3/mcL High 4.6-10.8 [facility] ([place]) Comment on above: Performed By: #### C ENMANUEL LOPEZ MDW, CMP, ANEU, HCGQ, GFR #### [address] [address] CMPon 03-19-2024 Albumin Level 3.0 G/dL Low 3.5-5.0 [facility] ([place]) Comment on above: Performed By: #### U AMIGETACHEW UA #### [address] [address] Albumin/Globulin [Mass ratio] 0.8 {ratio} Low 1.1-2.5 [facility] ([place]) Comment on above: Performed By: #### U AMIGETACHEW UA #### [address] [address] ALP [Catalytic activity/Vol] 49 U/L Normal 40-135 [facility] ([place]) Comment on above: Performed By: #### U AMICAO UA #### [address] [address] ALT [Catalytic activity/Vol] 18 U/L Normal 14-59 [facility] ([place]) Comment on above: Performed By: #### U TG UA #### [address] [address] AST [Catalytic activity/Vol] 9 U/L Low 10-40 [facility] ([place]) Comment on above: Performed By: #### Paloma CORDONCADivya UA #### [address] [address] Bili Total 0.3 mg/dL Normal 0.2-1.0 [facility] ([place]) Comment on above: Result Comment: Use of this assay is not recommended for patients undergoing treatment with eltrombopag due to the potential for falsely elevated results. Performed By: #### Paloma MAS UA #### [address] [address] BUN/Creatinine Ratio 10 ratio Normal 7-27 [facility] ([place]) Comment on above: Performed By: #### Paloma MAS UA #### [address] [address] Calcium [Mass/Vol] 9.0 mg/dL Normal 8.4-10.2 [facility] ([place]) Comment on above: Performed By: #### U AMICADivya UA #### [address] [address] Chloride [Moles/Vol] 102 mmol/L Normal 98-107 [facility] ([place]) Comment on above: Performed By: #### U TG UA #### [address] [address] CO2 [Moles/Vol] 23 mmol/L Normal 22-29 [facility] ([place]) Comment on above: Performed By: #### U BRAVOCADivya UA #### [address] [address] Creatinine [Mass/Vol] 0.51 mg/dL Low 0.55-1.02 [facility] ([place]) Comment on above: Performed By: #### U TG UA #### [address] [address] Electrolyte Balance 12.0 mEq/L Normal 4.0-15.0 [facility] ([place]) Comment on above: Performed By: #### U TG UA #### [address] [address] Globulin 4.0 G/dL Normal [facility] ([place]) Comment on above: Performed By: #### U TG UA #### [address] [address] Glucose [Mass/Vol] 96 mg/dL Normal 70-105 [facility] ([place]) Comment on above: Performed By: #### Paloma MAS UA #### [address] [address] Potassium [Moles/Vol] 3.6 mmol/L Normal 3.5-5.1 [facility] ([place]) Comment on above: Performed By: #### U TG UA #### [address] [address] Sodium [Moles/Vol] 137 mmol/L Normal 136-145 [facility] ([place]) Comment on above: Performed By: #### U TG UA #### [address] [address] Total Protein 7.0 G/dL Normal 6.4-8.2 [facility] ([place] Comment on above: Performed By: #### U AMICADivya UA #### [address] [address] Urea nitrogen [Mass/Vol] 5 mg/dL Low 7-18 [facility] ([place]) Comment on above: Performed By: #### U TG UA #### [address] [address] CNPNon 03-19-2024 CNPN Telephone (OBGYWM) LUZMARIA HEARN ([id number]) 1 F Date Time Provider Department 03/19/24 NALLELY ROMERO OBGYWM During your visit today, we recorded the following information about you: Angela George RN 03/19/2024 9:10 AM Signed 17w3d Calling because she tested positive for Covid at home today. Symptoms started late evening 03/15. Yesterday was the worse. Didn't check her temp, but feeling hot/cold often. Having a lot more nausea and vomited multiple times last night. Discussed going to ER if unable to keep anything down in 24 hours. She did contact PCP and is going in tomorrow for appt and official testing. Advised to rest, push fluids and add electrolyte drink when able, tylenol for headache/fever. Impulcity message also sent with link to safe meds list. She does have appointment tomorrow with JG. How far out does that need rescheduled to now? Please advise if any further recommendations too. SAFIA Dutton Karmon, MD 03/19/2024 9:35 AM Signed Recommend canceling OB appointment and rescheduling at least a week out. MD Chanell Soria Trisha, RN 03/19/2024 9:52 AM Signed Patient notified and rescheduled. Allergies As of Date: 03/19/2024 Noted Allergy Reaction MORPHINE 01/11/2024 8 - GI Upset Date Reviewed: 02/15/2024 Reviewed by: Valentina Yo MD - Fully Assessed Reason for Visit: Covid Positive [4049] Prescriptions as of 03/19/2024 - pantoprazole DR (PROTONIX) 40 mg tablet Take 1 tablet by mouth once daily. - ondansetron orally disintegrating (ZOFRAN ODT) 4 mg disintegrating tablet Take 2 tablets by mouth every 8 hours as needed for nausea/vomiting. - promethazine HCl (PHENERGAN RECTAL) by RECTAL route as needed. - PNV no.95/ferrous fum/folic ac ( ORAL) Take by mouth. Problem List As Of Date 03/19/2024 Noted Resolved High risk teen [O09.899] 06/09/2016 01/26/2021 History of depression [Z86.59] 06/09/2016 01/26/2021 Quit smoking [Z87.891] 06/09/2016 01/26/2021 Nausea and vomiting during [O21.9] 06/09/2016 01/26/2021 Family history of defects [Z82.79] 06/09/2016 01/26/2021 Rubella non-immune status, antepartum [O09.899,*07/28/2016 01/26/2021 High risk with elevated human chorion*09/20/2016 01/26/2021 Nausea/vomiting in [O21.9] 01/01/2024 Family history of diabetes mellitus [Z83.3] 01/15/2024 Encounter for supervision of high risk pregnanc*01/15/2024 History of macrosomia in infant in prior pregna*01/15/2024 Ovarian cyst, right [N83.201] 01/15/2024 Constipation during in first trimeste*01/15/2024 Obesity affecting in first trimester *01/15/2024 UTI (urinary tract infection) in , ant*01/17/2024 Chlamydia infection affecting [O98.81*01/17/2024 Encounter Status:Closed by ANGELA GEORGE on 03/19/24 Normal [facility] HCGQon 03-19-2024 hCG, quantitative 16620.1 mIU/mL Normal [facility] ([place]) Comment on above: Result Comment: HCG Levels with Gestation age: 0.2- 1 week. . . . . . . . . . . . . . . 5 - 50 mIU/mL 1-2 weeks . . . . . . . . . . . . . . . 50 - 500 mIU/mL 2-3 weeks . . . . . . . . . . . . . . . 100 - 5,000 mIU/ml 3-4 weeks . . . . . . . . . . . . . . . 500 - 10,000 mIU/mL 4-5 weeks . . . . . . . . . . . . . . . 1,000 - 5,000 mIU/mL 5-6 weeks . . . . . . . . . . . . . . . 10,000 - 100,000 mIU/mL 6-8 weeks . . . . . . . . . . . . . . . 15,000 - 200,000 mIU/mL 2-3 months . . . . . . . . . . . . . . . 10,000 - 100,000 mIU/mL Performed By: #### U CALIN MAS #### [place] [address] LABORATORYOrdered By: SYSTEM SYSTEM on 03-19-2024 Lipase [Catalytic activity/Vol] 14 U/L Low 16 - 77 U/L AO ADM SS Albumin BCP dye [Mass/Vol] 3.0 G/dL Low 3.5 - 5.0 G/dL AO ADM SS Albumin/Globulin [Mass ratio] 0.8 {ratio} Low 1.1 - 2.5 ratio AO ADM SS ALP [Catalytic activity/Vol] 49 U/L Normal 40 - 135 U/L AO ADM SS ALT With P-5'-P [Catalytic activity/Vol] 18 U/L Normal 14 - 59 U/L AO ADM SS AST With P-5'-P [Catalytic activity/Vol] 9 U/L Low 10 - 40 U/L AO ADM SS Basophil, Absolute 0.1 103/mcL Normal 0.0 - 0.2 10^3/mcL AO Workflow SS Basophils/100 WBC (Bld) 0.7 % Normal 0.0 - 2.5 % AO Workflow SS Bilirubin [Mass/Vol] 0.3 mg/dL Normal 0.2 - 1.0 mg/dL AO ADM SS Comment on above: Interpretive Data: U se of this assay is not recommended for patients undergoing treatment with eltrombopag due to the potential for falsely elevated results. Calcium [Mass/Vol] 9.0 mg/dL Normal 8.4 - 10. 2 mg/dL AO ADM SS Chloride [Moles/Vol] 102 mmol/L Normal 98 - 107 mmol/L AO ADM SS CO2 [Moles/Vol] 23 mmol/L Normal 22 - 29 mmol/L AO AD M SS Creatinine [Mass/Vol] 0.51 mg/dL Low 0.55 - 1.02 mg/dL AO ADM SS Electrolyte Balance 12.0 mEq/L Normal 4.0 - 15 .0 mEq/L AO ADM SS Eosinophil, Absolute 0.1 103/mcL Normal 0.0 - 0.4 10^3/mcL AO Workflow SS Eosinophils/100 WBC (Bld) 0.8 % Normal 0.0 - 7.0 % AO Workflow SS Erythrocyte distribution width (RBC) [Ratio] 13.9 % Normal 11.5 - 14.5 % AO Workflow SS GFR/1.73 sq M.predicted among blacks MDRD (S/P/Bld) [Vol rate/Area] 184 ml/min/1.73sqm Invalid Interpretation Code AO Chemistry S Comment on above: Interpretive Data: GFR Population mean for , Non- Americans Ages 20-29 = 116 mL/min/1.73 sq.m. Ages 30-39 = 107 mL/min/1.73 sq.m. Ages 40-49 = 99 mL/min/1.73 sq.m. Ages 50-59 = 93 mL/min/1.73 sq.m. Ages 60-69 = 85 mL/min/1.73 sq.m. Ages 70+ = 75 mL/min/1.73 sq.m. Chronic Kidney Disease: Less than 60 mL/min/1.73 square meters End Stage Renal Disease: Less than 15 mL/min/1.73 square meters GFR/1.73 sq M.predicted among non-blacks MDRD (S/P/Bld) [Vol rate/Area] 152 ml/min/1.73sqm Invalid Interpretation Code AO Chemistry S Comment on above: Interpretive Data: GFR Population mean for , Non- Americans Ages 20-29 = 116 mL/min/1.73 sq.m. Ages 30-39 = 107 mL/min/1.73 sq.m. Ages 40-49 = 99 mL/min/1.73 sq.m. Ages 50-59 = 93 mL/min/1.73 sq.m. Ages 60-69 = 85 mL/min/1.73 sq.m. Ages 70+ = 75 mL/min/1.73 sq.m. Chronic Kidney Disease: Less than 60 mL/min/1.73 square meters End Stage Renal Disease: Less than 15 mL/min/1.73 square meters Globulin 4.0 G/dL Invalid Interpretation Code AO ADM SS Glucose [Mass/Vol] 96 mg/dL Normal 70 - 105 mg/[place] [address].1 m[IU]/mL Invalid Interpretation Code AO ADM SS Comment on above: Interpretive Data: H CG Levels with Gestation age: 0.2- 1 week. . . . . . . . . . . . . . . 5 - 50 mIU/mL 1-2 weeks . . . . . . . . . . . . . . . 50 - 500 mIU/mL 2-3 weeks . . . . . . . . . . . . . . . 100 - 5,000 mIU/ml 3-4 weeks . . . . . . . . . . . . . . . 500 - 10,000 mIU/mL 4-5 weeks . . . . . . . . . . . . . . . 1,000 - 5,000 mIU/mL 5-6 weeks . . . . . . . . . . . . . . . 10,000 - 100,000 mIU/mL 6-8 weeks . . . . . . . . . . . . . . . 15,000 - 200,000 mIU/mL 2-3 months . . . . . . . . . . . . . . . 10,000 - 100,000 mIU/mL Hematocrit (Bld) [Volume fraction] 37.4 % Normal 37.0 - 47.0 % AO Workflow SS Hemoglobin (Bld) [Mass/Vol] 12.9 G/dL Normal 12.0 - 16.0 G/dL AO Workflow SS Lymphocyte, Absolute 2.8 103/mcL Normal 0.8 - 3.9 10^3/mcL AO Workflow SS Lymphocytes/100 WBC (Bld) 15.6 % Normal 10.0 - 50.0 % AO Workflow SS MCH (RBC) [Entitic mass] 29.7 pg Normal 27.0 - 31.2 pg AO Workflow SS MCHC 34.5 G/dL Normal 33.0 - 37.0 G/dL AO Workflow SS MCV (RBC) [Entitic vol] 86.1 fL Normal 80.0 - 94.0 fL AO Workflow SS Monocyte distribution width Auto (Bld) [Entitic vol] 15.87 1 Normal 0.00 - 20.00 AO Workflow SS Comment on above: Result Comment: For ED adult patients suspected of sepsis, MDW<=20.0 does not rule out sepsis or risk of sepsis Monocyte, Absolute 0.9 103/mcL Normal 0.2 - 1.0 10^3/mcL AO Workflow SS Monocytes/100 WBC (Bld) 4.8 % Normal 1.7 - 13.0 % AO Workflow SS Neutrophil, Absolute 14.2 103/mcL High 2.9 - 6.2 10^3/mcL AO Workflow SS Neutrophils/100 WBC (Bld) 78.1 % Normal 37.0 - 80.0 % AO Workflow SS Platelet mean volume (Bld) [Entitic vol] 7.7 fL Normal 7.4 - 10.4 fL AO Workflow SS Platelets (Bld) [#/Vol] 337 103/mcL Normal 130 - 400 10^3/mcL AO Workflow SS Potassium [Moles/Vol] 3.6 mmol/L Normal 3.5 - 5.1 mmol/L AO ADM SS Protein [Mass/Vol] 7.0 G/dL Normal 6.4 - 8.2 G/dL AO ADM SS RBC (Bld) [#/Vol] 4.34 106/mcL Normal 4.20 - 5.4 0 10^6/mcL AO Workflow SS Sodium [Moles/Vol] 137 mmol/L Normal 136 - 145 mmol/L AO ADM SS Urea nitrogen [Mass/Vol] 5 mg/dL Low 7 - 18 mg/dL AO ADM SS Urea nitrogen/Creatinine [Mass ratio] 10 ratio Normal 7 - 27 ratio AO ADM SS WBC (Bld) [#/Vol] 18.2 103/mcL High 4.6 - 10.8 10^3/mcL AO Workflow SS LABORATORYOrdered By: Pedro canales on 03-19-2024 Appearance (U) Cloudy *ABN* (03/19/24 2:49 PM) Invalid Interpretation Code Clear AO Auto Urine SS Bacteria LM.HPF (Urine sed) [#/Area] 3 /[HPF] Invalid Interpretation Code AO Auto Urine SS Bilirubin Ql (U) Small *ABN* (03/19/24 2:49 PM) Invalid Interpretation Code Negative AO Auto Urine SS Color (U) Brown *ABN* (03/19/24 2:49 PM) Invalid Interpretation Code AO Auto Urine SS Glucose Test strip (U) [Mass/Vol] Negative Normal Negative AO Auto Urine SS Hemoglobin Auto test strip (U) [Mass/Vol] Trace *ABN* (03/19/24 2:49 PM) Invalid Interpretation Code Negative AO Auto Urine SS Ketones Ql (U) 40 mg/dL Invalid Interpretation Code Negative AO Auto Urine SS UA Leuk Est Small *ABN* (03/19/24 2:49 PM) Invalid Interpretation Code Negative AO Auto Urine SS UA Mucous 2+ /HPF Normal AO Auto Urine SS UA Nitrite Positive *ABN* (03/19/24 2:49 PM) Invalid Interpretation Code Negative AO Auto Urine SS UA pH 6.0 (03/19/24 2:49 PM) Normal 5.0 - 8.0 AO Auto Urine SS UA Protein 100 mg/dL Invalid Interpretation Code Negative AO Auto Urine SS UA RBC 0-5 /HPF Invalid Interpretation Code None Seen AO Auto Urine SS UA Spec Grav >=1.030 *ABN* (03/19/24 2:49 PM) Invalid Interpretation Code 1.015-1.025 AO Auto Urine SS UA Specimen Type Not Given (03/19/24 2:49 PM) Normal AO Auto Urine SS UA Squam Epithelial LOADED /HPF Invalid Interpretation Code None Seen AO Auto Urine SS UA Urobilinogen 0.2 E.U./dL Normal 0.2-1.0 AO Auto Urine SS WBC LM.HPF (Urine sed) [#/Area] LOADED /HPF Invalid Interpretation Code None Seen AO Auto Urine SS LIPon 03-19-2024 Lipase Level 14 U/L Low 16-77 [facility] ([place]) Comment on above: Performed By: #### L IP #### [address] [address] UAon 03-19-2024 Color (U) Brown Abnormal [facility] ([place]) Comment on above: Performed By: #### U AMICAO, UA #### [address] [address] Glucose (U) [Mass/Vol] Negative Normal Negative [facility] ([place]) Comment on above: Performed By: #### U AMICAO, UA #### [address] [address] Ketones Ql (U) 40 mg/dL Abnormal Negative [facility] ([place]) Comment on above: Performed By: #### U AMICAO, UA #### [place] [address] [address] UA Appear Cloudy Abnormal Clear [facility] ([place]) Comment on above: Performed By: #### U AMICAO, UA #### [place] [address] [address] UA Bili Small Abnormal Negative [facility] ([place]) Comment on above: Performed By: #### U AMICAO, UA #### [address] [address] [address] UA Blood Trace Abnormal Negative [facility] ([place]) Comment on above: Performed By: #### U AMICAO, UA #### [place] [address] UA Leuk Est Small Abnormal Negative [facility] ([place]) Comment on above: Performed By: #### U AMICAO, UA #### [address] [address] UA Nitrite Positive Abnormal Negative [facility] ([place]) Comment on above: Performed By: #### U AMICAO, UA #### [address] [address] UA pH 6.0 Normal 5.0 - 8.0 [facility] ([place]) Comment on above: Performed By: #### U AMICAO, UA #### [address] [address] UA Protein 100 mg/dL Abnormal Negative [facility] ([place]) Comment on above: Performed By: #### U AMICAO, UA #### [address] [address] UA Spec Grav >=1.030 Abnormal 1.015-1.025 [facility] ([place]) Comment on above: Performed By: #### U AMICAO, UA #### [address] [address] [place], [place] [address] UA Specimen Type Not Given Normal [facility] ([place]) Comment on above: Performed By: #### U AMICAO, UA #### [place] [address] [place], [place] [address] UA Urobilinogen 0.2 E.U./dL Normal 0.2-1.0 [facility] ([place]) Comment on above: Performed By: #### U AMICAO UA #### [place] [address] [place], [place] [address] Bacteria Ur Culton 4 Bacteria identified Cx Nom (U) ORGANISM ID: 1 >=100,000 CFU/ml Normal urogenital sarahi Normal [facility] Comment on above: Performed By: #### 6 30-4 ####[facility] LABCLIA [id number] [place] [address] [place] CARRIER SCREEN, STANDARDon 0 02-15-2024 CARRIER SCREEN RESULTS View results in Scanned Documents link when available. Normal [facility] Comment on above: Order Comment: Speci men Type: BLOOD SPECIMENOrdering Facility: [facility] Address: [address] [place] [address] Performed By: #### C RRSCN ####MYRIADCLIA [id number] [place] [address] CBC panel Auto (Bld)on 02-14 Erythrocyte distribution width (RBC) [Ratio] 13.2 % Normal 11.5-15.0 [facility] Comment on above: Order Comment: Speci men Type: BLOOD SPECIMENOrdering Facility: [facility] Address: [address] [place] [address] Performed By: #### 5 8410-2 ####[facility] [id number] [place] [address] [place] Hematocrit (Bld) [Volume fraction] 37.9 % Normal 36.0-46.0 [facility] Comment on above: Order Comment: Speci men Type: BLOOD SPECIMENOrdering Facility: [facility] Address: [address] [place] [address] Performed By: #### 5 8410-2 ####[facility] IAN [id number] [place] [address] [place] Hemoglobin (Bld) [Mass/Vol] 13.2 g/dL Normal 11.5-15.5 [facility] Comment on above: Order Comment: Speci men Type: BLOOD SPECIMENOrdering Facility: [facility] Address: [address] [place], [place] [address] Performed By: #### 5 8410-2 ####[facility] HOSPITALBRADDivya [id number] [place] [address] [place] MCH (RBC) [Entitic mass] 29.5 pg Normal 26.0-34.0 [facility] Comment on above: Order Comment: Speci men Type: BLOOD SPECIMENOrdering Facility: [facility] Address: [address] [place] [address] Performed By: #### 5 8410-2 ####[facility] [id number] [address] [place] MCHC (RBC) [Mass/Vol] 34.8 g/dL Normal 30.5-36.0 [facility] Comment on above: Order Comment: Speci men Type: BLOOD SPECIMENOrdering Facility: [facility] Address: [address] [place] [address] Performed By: #### 5 8410-2 ####[facility] HOSPITALNCLIA [id number] [place] [address] [place] MCV (RBC) [Entitic vol] 84.8 fL Normal 80.0-100.0 [facility] Comment on above: Order Comment: Speci men Type: BLOOD SPECIMENOrdering Facility: [facility] Address: [address] [place] [address] Performed By: #### 5 8410-2 ####[facility] MILLTOWNCLIA [id number] [place] [address] [place] Nucleated RBC (Bld) [#/Vol] 10*3/uL Normal <0.01 [facility] Comment on above: Order Comment: Speci men Type: BLOOD SPECIMENOrdering Facility: [facility] Address: [address] [place] [address] Performed By: #### 5 8410-2 ####[facility] MILLWNCLIA [id number] [place] [address] [place] Platelet mean volume (Bld) [Entitic vol] 9.7 fL Normal 9.0-12.7 [facility] Comment on above: Order Comment: Speci men Type: BLOOD SPECIMENOrdering Facility: [facility] Address: [address] [place] [address] Performed By: #### 5 8410-2 ####[facility] HOSPITALWNCLIA [id number] [place] [address] [place] Platelets (Bld) [#/Vol] 326 10*3/uL Normal 150-400 [facility] Comment on above: Order Comment: Speci men Type: BLOOD SPECIMENOrdering Facility: [facility] Address: [address] [place] [address] Performed By: #### 5 8410-2 ####[facility] MILLTOWNCLIA [id number] [place] [address] [place] RBC (Bld) [#/Vol] 4.47 10*6/uL Normal 3.90-5.20 [facility] Comment on above: Order Comment: Speci men Type: BLOOD SPECIMENOrdering Facility: [facility] Address: [address] [place] [address] Performed By: #### 5 8410-2 ####[facility] MILLVAN NUYSNCLIA [id number] [place] [address] [place] WBC (Bld) [#/Vol] 15.98 10*3/uL High 3.70-11.[address] [facility] Comment on above: Order Comment: Speci men Type: BLOOD SPECIMENOrdering Facility: [facility] Address: [address] [place] [address] Performed By: #### 5 8410-2 ####[facility] [id number] [place] [address] [place] nuchal translucency me asured by USon 02-15-2024 [facility] HBV surface Ag Ser Qlon 02-04 HBV surface Ag Ql (S) Negative Normal Negative [facility] Comment on above: Order Comment: Speci men Type: SWAB [facility] Address: [address] [place] [address] Performed By: #### 3 6902-5 #### [facility] CLIA [id number] [address] [place] [address] [place] HCV Ab Ser Qlon 02-15-2024 HCV Ab Ql (S) Negative Normal Negative [facility] Comment on above: Order Comment: Speci men Type: BLOOD SPECIMENOrdering Facility: [facility] Address: [address] [place] [address] Result Comment: The result suggests no evidence of active infection with Hepatitis C virus. Should recent infection be suspected, repeat testing may be considered 4-6 weeks after this draw. Performed By: #### 1 6128-1 ####[facility] LABCLIA [id number] [place] [address] [place] HIV 1+2 Ab IA Qlon HIV 1 and 2 Ab IA.rapid Nom (S/P/Bld) Normal [facility] Comment on above: Order Comment: Speci men Type: SWAB [facility] Address: [address] [place] [address] Result Comment: Test not indicated. Performed By: #### 3 6902-5 #### [facility] CLIA [id number] [address] [place] [address] [place] HIV 1+2 Ab+HIV1 p24 Ag IA Ql Non-Reactive Normal Nonreactive [facility] Comment on above: Order Comment: Speci men Type: SWAB [facility] Address: [address] [place] [address] Performed By: #### 3 6902-5 #### [facility] CLIA [id number] [address] [place] [address] [place] HIV immunoassay testing algorithm interpretation (S/P/Bld) [Interp] Normal [facility] Comment on above: Order Comment: Speci men Type: SWAB [facility] Address: [address] [place] [address] Result Comment: No e vidence of HIV-1 or HIV-2 infection. Should recent infection be suspected, repeat testing may be considered 2-3 weeks after this draw. [place] Rev. Code 3701.243(E): This information has been disclosed to you from confidential records protected from disclosure by state law. ???You shall make no further disclosure of this information without the specific, written, and informed release of the individual to whom it pertains or as otherwise permitted by state law. A general authorization for the release of medical or other information is not sufficient for the purpose of the release of HIV test results or diagnoses. Performed By: #### 3 6902-5 #### [facility] CLIA [id number] [address] [place] [address] [place] HbA1c (Bld)on 02-15-2024 Average glucose Estimated from glycated hemoglobin (Bld) [Mass/Vol] 88 mg/dL Normal [facility] Comment on above: Order Comment: Speci men Type: BLOOD SPECIMENOrdering Facility: [facility] Address: [address] [place] [address] Result Comment: eAG: (Estimated average glucose) is a calculated value from HgbA1c and is airline security representative of the average blood glucose level in the last 2-3 month period. Performed By: #### 5 5454-3 ####[facility] LABCLIA [id number] [place] [address] [place] HbA1c (Bld) [Mass fraction] 4.7 % Normal 4.3-5.6 [facility] Comment on above: Order Comment: Speci men Type: BLOOD SPECIMENOrdering Facility: [facility] Address: [address] [place] [address] Result Comment: Amer [place] Diabetes Association guidelines indicate that patients with HgbA1c in the range 5.7-6.4% are at increased risk for development of diabetes, and intervention by lifestyle modification may be beneficial. HgbA1c greater or equal to 6.5% is considered diagnostic of diabetes. Performed By: #### 5 5454-3 ####[facility] LABCLIA [id number] [place] [address] [place] [id number] PLUSon 02-15-2024 Cell-free DNA./Cell-free DNA.total Dosage of chromosome-specific cfDNA (cfDNA) [Molar fraction] 5% Normal [facility] Comment on above: Order Comment: Edyta pino Type: BLOOD SPECIMEN [facility] Address: [address] [place] [address] Performed By: #### M AT21 #### [facility] CLIA [id number] [address] [place] [address] Chr 13+18+21+X+Y aneuploidy Dosage of chromosome-specific cfDNA Ql (cfDNA) Negative Normal [facility] Comment on above: Order Comment: Edyta pino Type: BLOOD SPECIMEN [facility] Address: [address] [place] [address] Performed By: #### M AT21 #### [facility] CLIA [id number] [address] [place] [address] Chr 21 trisomy Dosage of chromosome-specific cfDNA Ql (cfDNA) Negative Normal [facility] Comment on above: Order Comment: Speci men Type: BLOOD SPECIMEN [facility] Address: [address] [place] [address] Performed By: #### M AT21 #### [facility] CLIA [id number] [address] [place] [address] Chr X and Y aneuploidy risk Sequencing Ql (cfDNA) [Interp] Not detected Normal [facility] Comment on above: Order Comment: Speci men Type: BLOOD SPECIMEN [facility] Address: [address] [place] [address] Result Comment: Not Detected Not Detected Performed By: #### M AT21 #### [facility] CLIA [id number] [address] [place] [address] Citation Leo (Reference lab test) Comment Normal [facility] Comment on above: Order Comment: Speci men Type: BLOOD SPECIMEN [facility] Address: [address] [place] [address] Result Comment: 1. P esdras KOENIG, et al. Grecia Med. 2012;14(3):296-305. 2. Yogesh CAMACHO, et al. Prenat Diag. 2013;33(6):591-597. 3. Virgil C, et al. Clin Chem. 2015 Apr;61(4):608-616. 4. Katie KOENIG, et al. Grecia Med. 2011;13(11):913-920. 5. ACOG/SMFM Practice Bulletin No. 226, Aug 2020. Performed By: #### M AT21 #### [facility] CLIA [id number] [address] [place] [address] Gestational age Estimated from conception date Krueger Normal [facility] Comment on above: Order Comment: Speci men Type: BLOOD SPECIMEN Ordering Facility: [facility] Address: [address] [place] [address] Performed By: #### M AT21 #### [facility] CLIA [id number] [address] [place] [address] GESTATIONALAGE AGE > OR = 9W Yes Normal [facility] Comment on above: Order Comment: Edyta pino Type: BLOOD SPECIMEN Ordering Facility: [facility] Address: [address] [place] [address] Performed By: #### M AT21 #### [facility] CLIA [id number] [address] [place] [address] Laboratory comment Leo (Report) Comment Normal [facility] Comment on above: Order Comment: Edyta pino Type: BLOOD SPECIMEN Ordering Facility: [facility] Address: [address] [place] [address] Result Comment: The MaterniT(R) 21 PLUS laboratory-developed test (LDT) analyzes circulating cell-free DNA from a maternal blood sample. This test is used for screening purposes and not diagnostic. Clinical correlation is recommended. Validation data on twin pregnancies is limited and the ability of this test to detect aneuploidy in higher multiple gestations has not yet been validated. Performed By: #### M AT21 #### [facility] CLIA [id number] [address] [place] [id number] business continuity management director name Nom (Provider) Comment Normal [facility] Comment on above: Order Comment: Edyta pino Type: BLOOD SPECIMEN Ordering Facility: [facility] Address: [address] [place] [address] Result Comment: This specimen showed an expected representation of chromosome 21, 18 and 13 material. Clinical correlation is suggested. Comment Zaki Singh MD, PhD, Director, [employer] Performed By: #### M AT21 #### [facility] CLIA [id number] [address] [place] [id number] LIMITATIONS OF THE TEST Comment Normal [facility] Comment on above: Order Comment: Edyta pino Type: BLOOD SPECIMEN Ordering Facility: [facility] Address: [address] [place] [address] Result Comment: Barbara barker the results of these tests are highly reliable, discordant results, including inaccurate sex prediction, may occur due to placental, maternal, or mosaicism or neoplasm; vanishing twin; prior maternal organ transplant; or other causes. These tests are screening tests and not diagnostic; they do not replace the accuracy and precision of diagnosis with CVS or amniocentesis. A patient with a positive test result should be referred for genetic counseling and offered invasive diagnosis for confirmation of test results.[5] The results of this testing, including the benefits and limitations, should be discussed with a qualified healthcare provider. management decisions, including termination of the , should not be based on the results of these tests alone. The healthcare provider is responsible for the use of this information in the management of their patient. Sex chromosomal aneuploidies are not reportable for known multiple gestations. A negative result does not ensure an unaffected nor does it exclude the possibility of other chromosomal abnormalities or defects which are not a part of these tests. An uninformative result may be reported, the causes of which may include, but are not limited to, insufficient sequencing coverage, noise or artifacts in the region, amplification or sequencing bias, or insufficient fraction. These tests are not intended to identify pregnancies at risk for neural tube defects or ventral wall defects. Testing for whole chromosome abnormalities (including sex chromosomes) and for subchromosomal abnormalities could lead to the potential discovery of both and maternal genomic abnormalities that could have major, minor, or no, clinical significance. Evaluating the significance of a positive or a non-reportable result may involve both invasive testing and additional studies on the mother. Such investigations may lead to a diagnosis of maternal chromosomal or subchromosomal abnormalities, which on occasion may be associated with benign or malignant maternal neoplasms. These tests may not accurately identify triploidy, balanced rearrangements, or the precise location of subchromosomal duplications or deletions; these may be detected by diagnosis with CVS or amniocentesis. The ability to report results may be impacted by maternal BMI, maternal weight, maternal systemic lupus erythematosus (SLE) and/or by certain pharmaceutical agents such as low molecular weight heparin (for example: Lovenox(R), Xaparin(R), Clexane(R) and Fragmin(R)). Performed By: #### M AT21 #### [facility] CLIA [id number] [address] [place] [address] Monosomy X risk Dosage of chromosome-specific cfDNA Ql (Plasma cell-free+WBC DNA) [Interp] Not detected Normal [facility] Comment on above: Order Comment: Speci men Type: BLOOD SPECIMEN Ordering Facility: [facility] Address: [address] [place] [address] Performed By: #### M AT21 #### [facility] CLIA [id number] [address] [place] [address] NEGATIVE PREDICTIVE VALUE Note Normal [facility] Comment on above: Order Comment: Speci men Type: BLOOD SPECIMEN Ordering Facility: [facility] Address: [address] [place] [address] Result Comment: The Negative Predictive Value (NPV) for trisomy 21, 18, and 13 is greater than 99%. The NPV for SCA and ESS cannot be calculated as SCA and ESS are only reported when an abnormality is detected. Performed By: #### M AT21 #### [facility] CLIA [id number] [address] [place] [id number] NOTE Comment Normal [facility] Comment on above: Order Comment: [facility] Type: BLOOD SPECIMEN Ordering Facility: [facility] Address: [address] [place] [address] Result Comment: See Notes [employer] is a subsidiary of [employer], using the brand [facility]. This test was developed and its performance characteristics determined by [facility]. It has not been cleared or approved by the Food and Drug Administration. This laboratory is certified under the Clinical Laboratory Improvement Amendments (CLIA) as qualified to perform high complexity clinical laboratory testing and accredited by the [employer] (CAP). If there is future clinical need for adding MaterniT GENOME testing, this specimen will be available until term. [facility] samples will not be retained beyond 60 days. [facility] patients will have to send a new sample for re-sequencing ([facility] Test Code: [id number]). Performed By: #### M AT21 #### [facility] CLIA [id number] [address] [place] [address] PERFORMANCE CHARACTERISTICS Note Normal [facility] Comment on above: Order Comment: Edyta pino Type: BLOOD SPECIMEN Ordering Facility: [facility] Address: [address] [place] [address] Result Comment: ! Sex ! Accuracy: 99.4% ! ! ! ! Region (associated syndrome) ! Est. Sens# ! Est. Spec ! ! ! ! Trisomy 21 (Down Syndrome) ! 99.1% ! 99.9% ! ! ! ! Trisomy 18 (Hartley Syndrome) ! >99.9% ! 99.6% ! ! ! ! Trisomy 13 (Patau Syndrome) ! 91.7% ! 99.7% ! ! ! ! Sex Chromosome Aneuploidies## ! 96.2% ! 99.7% ! ! ! * As reported in [facility] database nstd37 [https://www.ncbi.nlm.nih.gov/dbvar/studies/nstd37/ ] # Estimated Sensitivity. Sensitivity estimated across the observed size distribution of each syndrome [per ISCA database nstd37] and across the range of fractions observed in routine clinical NIPT. Actual sensitivity can also be influenced by other factors such as the size of the event, total sequence counts, amplification bias, or sequence bias. ## Krueger gestation only. Performed By: #### M AT21 #### [facility] CLIA [id number] [address] [place] [address] POSITIVE PREDICTIVE VALUE N/A Normal [facility] Comment on above: Order Comment: Speci men Type: BLOOD SPECIMEN Ordering Facility: [facility] Address: [address] [place] [address] Performed By: #### M AT21 #### [facility] CLIA [id number] [address] [place] [address] Reference Lab Test Method Comment Normal [facility] Comment on above: Order Comment: Speci men Type: BLOOD SPECIMEN Ordering Facility: [facility] Address: [address] [place] [address] Result Comment: See Notes Circulating cell-free DNA was purified from the plasma component of maternal blood. The extracted DNA was then converted into a genomic DNA library for aneuploidy analysis of chromosomes 21, 18, and 13 via next generation sequencing.[1] Optional findings based on the test order include sex chromosome aneuploidy (SCA)[2], and enhanced sequencing series (ESS)[3], which will only be reported on as an additional finding when an abnormality is detected. SCA testing includes information on X and Y representation, while ESS testing includes deletions in selected regions (22q, 15q, 11q, 8q, 5p, 4p, 1p) and trisomy of chromosomes 16 and 22. Performed By: #### M AT21 #### [facility] CLIA [id number] [address] [place] [address] Sex Dosage of chromosome-specific cfDNA Nom (cfDNA) Comment Normal [facility] Comment on above: Order Comment: Speci men Type: BLOOD SPECIMEN Ordering Facility: [facility] Address: [address] [place] [address] Result Comment: Cons istent with Male Performed By: #### M AT21 #### [facility] CLIA [id number] [address] [place] [address] Test performance information Leo (Unsp spec) Comment Normal [facility] Comment on above: Order Comment: Edyta pino Type: BLOOD SPECIMEN Ordering Facility: [facility] Address: [address] [place] [address] Result Comment: The performance characteristics of the MaterniT(R) 21 PLUS laboratory-developed test (LDT) have been determined in a clinical validation study with women at increased risk for chromosomal aneuploidy.[1-4] Performed By: #### M AT21 #### [facility] CLIA [id number] [address] [place] [address] Trisomy 13 risk Dosage of chromosome-specific cfDNA Ql (cfDNA) [Interp] Negative Normal [facility] Comment on above: Order Comment: Edyta pino Type: BLOOD SPECIMEN Ordering Facility: [facility] Address: [address] [place] [address] Performed By: #### M AT21 #### [facility] CLIA [id number] [address] [place] [address] Trisomy 18 risk Dosage of chromosome-specific cfDNA Ql (Plasma cell-free+WBC DNA) [Interp] Negative Normal [facility] Comment on above: Order Comment: Edyta pino Type: BLOOD SPECIMEN Ordering Facility: [facility] Address: [address] [place] [address] Performed By: #### M AT21 #### [facility] CLIA [id number] [address] [place] [address] RUBELLA IGG ANTIBODYon 02-14 RUBELLA IGG AB, QUAL Positive Normal Positive [facility] Comment on above: Order Comment: Edyta pino Type: BLOOD SPECIMENOrdering Facility: [facility] Address: [address] [place] [address] Result Comment: The result suggests recent or past exposure to Rubella virus or history of Rubella vaccination. Positive result may also be seen due to presence of passively-transferred antibodies. Please correlate with patient's history. Performed By: #### R UBIGG ####[facility] [id number] [place] [address] [place] Reagin and Treponema pallidu m IgG and IgM [Interp]on 02-15-2024 T. pallidum IgG+IgM IA Ql (S) Non-Reactive Normal Nonreactive [facility] Comment on above: Order Comment: Speci men Type: SWAB Ordering Facility: [facility] Address: [address] [place] [address] Performed By: #### 3 6902-5 #### [facility] CLIA [id number] [address] [place] [address] [place] Reagin+T pallidum IgG+IgM Se rPl-Impon 02-15-2024 Reagin and Treponema pallidum IgG and IgM [Interp] Cannot exclude recent Treponemal infection if specimen collected within 7-10 days after appearance of suspect lesions or 2-3 weeks after an exposure. Clinical correlation is required. Normal [facility] Comment on above: Order Comment: Speci men Type: SWAB Ordering Facility: [facility] Address: [address] [place] [address] Performed By: #### 3 6902-5 #### [facility] CLIA [id number] [address] [place] [address] [place] TYPE + SCREEN PRENATALon ABO A Normal [facility] Comment on above: Order Comment: Speci men Type: SWAB Ordering Facility: [facility] Address: [address] [place] [address] Performed By: #### 3 6902-5 #### [facility] CLIA [id number] [address] [place] [address] [place] HISTORICAL AB SCR STATUS Negative Normal [facility] Comment on above: Order Comment: Speci men Type: SWAB Ordering Facility: [facility] Address: [address] [place] [address] Performed By: #### 3 6902-5 #### [facility] CLIA [id number] [facility] [place] [address] [place] Rh Nom (Bld) Positive Normal [facility] Comment on above: Order Comment: Speci men Type: SWAB Ordering Facility: [facility] Address: [address] [place] [address] Performed By: #### 3 6902-5 #### [facility] CLIA [id number] [address] [place] [address] [place] TYPE AND SCREEN EXPIRATION 02/18/2024 23:59 Normal [facility] Comment on above: Order Comment: Speci men Type: SWAB Ordering Facility: [facility] Address: [address] [place] [address] Performed By: #### 3 6902-5 #### [facility] CLIA [id number] [address] [place] [address] [place] [facility] 01-17-2024 CNPN Telephone (OBGYWM) LUZMARIA HEARN ([id number]) 1 F Date Time Provider Department 01/17/24 EVIE MONTES During your visit today, we recorded the following information about you: Evie Montes APRN.APPLIANCE TESTER 01/17/2024 8:14 AM Signed Please notify patient: + for chlamydia. To treat with Azithromycin during . Partner needs treatment. Avoid intercourse during treatment and 7 days after. Will need rescreened in 4 weeks. Please notify health department. Also + for UTI. To treat with Keflex. She has had severe nausea and vomiting so we may have difficulty with oral treatment. Take antibiotic with food. Would recommend spreading Zofran from antibiotic - do not take at the same time. Evie Montes APRN.Valentina Priest RN 01/17/2024 9:32 AM Signed Left message for patient to call office. Health Department form in nurse phone room. SAFIA Thomas Trisha, RN 01/17/2024 10:07 AM Signed Health department requested chlamydia treatment information. Form faxed. Leave open for patient to call back. SAFIA Dutton Teresa, RN 01/17/2024 11:10 AM Addendum Patient given message. Patient states that she was seen at [facility] for NANDV yesterday-still not kept any fluids down. She refuses to go back to [facility] because she feels that they get mad at her because they feel the shoudn't be doing anything more-the that OB should be managing this . She will call us back if she cannot keep the medication down. She is aware of importance of her partner getting treated. Please advise. Evie Montes APRN.NITZA 01/17/2024 11:40 AM Signed Patient has follow up scheduled for tomorrow to discuss this. Evie Montes APRN.NITZA Allergies As of Date: 01/17/2024 Noted Allergy Reaction MORPHINE 01/11/2024 8 - GI Upset Date Reviewed: 01/15/2024 Reviewed by: Evie Montes APRN.APPLIANCE TESTER - Fully Assessed Reason for Visit: Results [95] Visit Diagnoses:UTI (urinary tract infection) in , antepartum [O23.40] Chlamydia infection affecting in first trimester [O98.811, A74.9] Order(s):cephALEXin (KEFLEX) 500 mg capsuleTake 1 capsule by mouth four times daily for 7 days.Disp: 28 capsuleRfl: 0 azithromycin (ZITHROMAX) 500 mg tabletTake 2 tablets by mouth one time only for 1 dose.Disp: 2 tabletRfl: 0 Prescriptions as of 01/17/2024 - cephALEXin (KEFLEX) 500 mg capsule Take 1 capsule by mouth four times daily for 7 days. - azithromycin (ZITHROMAX) 500 mg tablet Take 2 tablets by mouth one time only for 1 dose. - ondansetron orally disintegrating (ZOFRAN ODT) 4 mg disintegrating tablet Take 1 tablet by mouth every 8 hours as needed for nausea/vomiting. - promethazine HCl (PHENERGAN RECTAL) by RECTAL route as needed. - PNV no.95/ferrous fum/folic ac ( ORAL) Take by mouth. Problem List As Of Date 01/17/2024 Noted Resolved High risk teen [O09.899] 06/09/2016 01/26/2021 History of depression [Z86.59] 06/09/2016 01/26/2021 Quit smoking [Z87.891] 06/09/2016 01/26/2021 Nausea and vomiting during [O21.9] 06/09/2016 01/26/2021 Family history of defects [Z82.79] 06/09/2016 01/26/2021 Rubella non-immune status, antepartum [O09.899,*07/28/2016 01/26/2021 High risk with elevated human chorion*09/20/2016 01/26/2021 Nausea/vomiting in [O21.9] 01/01/2024 Family history of diabetes mellitus [Z83.3] 01/15/2024 Encounter for supervision of high risk pregnanc*01/15/2024 History of macrosomia in in prior pregna*01/15/2024 Ovarian cyst, right [N83.201] 01/15/2024 Constipation during in first trimeste*01/15/2024 Obesity affecting in first trimester *01/15/2024 UTI (urinary tract infection) in , ant*01/17/2024 Chlamydia infection affecting [O98.81*01/17/2024 Prescriptions ordered this encounter Disp Refills Start End CEPHALEXIN 500 MG CAPSULE 28 c* 0 01/17/2024 01/24/2024 Route: ORAL Sig: Take 1 capsule by mouth four times daily for 7 days. AZITHROMYCIN 500 MG TABLET 2 ta* 0 01/17/2024 01/17/2024 Route: ORAL Sig: Take 2 tablets by mouth one time only for 1 dose. Encounter Status:Closed by EVIE MONTES on 01/17/24 [facility] .GFRon 01-16-2024 GFR 208 ml/min/1.73sqm Normal [facility] ([place]) Comment on above: Result Comment: GFR Population mean for , Non- Americans Ages 20-29 = 116 mL/min/1.73 sq.m. Ages 30-39 = 107 mL/min/1.73 sq.m. Ages 40-49 = 99 mL/min/1.73 sq.m. Ages 50-59 = 93 mL/min/1.73 sq.m. Ages 60-69 = 85 mL/min/1.73 sq.m. Ages 70+ = 75 mL/min/1.73 sq.m. Chronic Kidney Disease: Less than 60 mL/min/1.73 square meters End Stage Renal Disease: Less than 15 mL/min/1.73 square meters Performed By: #### G , BMP #### [address] [address] GFR Non- 171 ml/min/1.73sqm Normal [facility] ([place]) Comment on above: Result Comment: GFR Population mean for , Non- Americans Ages 20-29 = 116 mL/min/1.73 sq.m. Ages 30-39 = 107 mL/min/1.73 sq.m. Ages 40-49 = 99 mL/min/1.73 sq.m. Ages 50-59 = 93 mL/min/1.73 sq.m. Ages 60-69 = 85 mL/min/1.73 sq.m. Ages 70+ = 75 mL/min/1.73 sq.m. Chronic Kidney Disease: Less than 60 mL/min/1.73 square meters End Stage Renal Disease: Less than 15 mL/min/1.73 square meters Performed By: #### G , BMP #### [address] [address] BMPon 01-16-2024 BUN/Creatinine Ratio 13 ratio Normal 7-27 [facility] ([place]) Comment on above: Performed By: #### G , BMP #### [address] [address] Calcium [Mass/Vol] 8.7 mg/dL Normal 8.4-10.2 [facility] ([place]) Comment on above: Performed By: #### G FR, BMP #### [address] [address] Chloride [Moles/Vol] 101 mmol/L Normal 98-107 [facility] ([place]) Comment on above: Performed By: #### G FR, BMP #### [address] [address] CO2 [Moles/Vol] 23 mmol/L Normal 22-29 [facility] ([place]) Comment on above: Performed By: #### G FR, BMP #### [address] [address] Creatinine [Mass/Vol] 0.46 mg/dL Low 0.55-1.02 [facility] ([place]) Comment on above: Performed By: #### G FR, BMP #### [address] [address] Electrolyte Balance 11.0 mEq/L Normal 4.0-15.0 [facility] ([place]) Comment on above: Performed By: #### G FR, BMP #### [address] [address] Glucose [Mass/Vol] 91 mg/dL Normal 70-105 [facility] ([place]) Comment on above: Performed By: #### G FR, BMP #### [address] [address] Potassium [Moles/Vol] 4.0 mmol/L Normal 3.5-5.1 [facility] ([place]) Comment on above: Performed By: #### G FR, BMP #### [address] [address] Sodium [Moles/Vol] 135 mmol/L Low 136-145 [facility] ([place]) Comment on above: Performed By: #### G FR, BMP #### [address] [address] Urea nitrogen [Mass/Vol] 6 mg/dL Low 7-18 [facility] ([place]) Comment on above: Performed By: #### G FR, BMP #### [address] [place] [id number] [place], [place] [address] Jenny 01-16-2024 CNPN Telephone (OBGYWM) MIREILLELUZMARIA Neno ([id number]) 1 F Date Time Provider Department 01/16/24 JACKIE CANDELARIA During your visit today, we recorded the following information about you: Cielo Lee RN 01/16/2024 12:21 PM Signed Patient 8w3d calling with extreme nausea and [...] follow up in the office this week? SAFIA Downs Jessica, APRN.CNM 01/16/2024 1:34 PM Signed Yes, if patient is going to ED today, which I recommend, please have her follow up or Monday. Thank you, Jackie Candelaria APRN.Cielo Costa RN 01/16/2024 1:48 PM Signed Left message to call office. SAFIA Downs Danielle, RN 01/16/2024 2:05 PM Signed Spoke with patient. She is in ED now and scheduled for f/u . Gio Hammond RN Allergies As of Date: 01/16/2024 Noted Allergy Reaction MORPHINE 01/11/2024 8 - GI Upset Date Reviewed: 01/15/2024 Reviewed by: Evie Montes APRN.APPLIANCE TESTER - Fully Assessed Reason for Visit: Nausea AND Vomiting [237] Prescriptions as of 01/16/2024 - ondansetron orally disintegrating (ZOFRAN ODT) 4 mg disintegrating tablet Take 1 tablet by mouth every 8 hours as needed for nausea/vomiting. - promethazine HCl (PHENERGAN RECTAL) by RECTAL route as needed. - PNV no.95/ferrous fum/folic ac ( ORAL) Take by mouth. Problem List As Of Date 01/16/2024 Noted Resolved High risk teen [O09.899] 06/09/2016 01/26/2021 History of depression [Z86.59] 06/09/2016 01/26/2021 Quit smoking [Z87.891] 06/09/2016 01/26/2021 Nausea and vomiting during [O21.9] 06/09/2016 01/26/2021 Family history of defects [Z82.79] 06/09/2016 01/26/2021 Rubella non-immune status, antepartum [O09.899,*07/28/2016 01/26/2021 High risk with elevated human chorion*09/20/2016 01/26/2021 Nausea/vomiting in [O21.9] 01/01/2024 Family history of diabetes mellitus [Z83.3] 01/15/2024 Encounter for supervision of high risk pregnanc*01/15/2024 History of macrosomia in infant in prior pregna*01/15/2024 Ovarian cyst, right [N83.201] 01/15/2024 Constipation during in first trimeste*01/15/2024 Obesity affecting in first trimester *01/15/2024 Encounter Status:Closed by GIO HAMMOND on 01/16/24 Normal [facility] LABORATORYOrdered By: SYSTEM SYSTEM on 01-16-2024 Calcium [Mass/Vol] 8.7 mg/dL Normal 8.4 - 10. 2 mg/dL AO ADM SS Chloride [Moles/Vol] 101 mmol/L Normal 98 - 107 mmol/L AO ADM SS CO2 [Moles/Vol] 23 mmol/L Normal 22 - 29 mmol/L AO AD M SS Creatinine [Mass/Vol] 0.46 mg/dL Low 0.55 - 1.02 mg/dL AO ADM SS Electrolyte Balance 11.0 mEq/L Normal 4.0 - 15 .0 mEq/L AO ADM SS GFR/1.73 sq M.predicted among blacks MDRD (S/P/Bld) [Vol rate/Area] 208 ml/min/1.73sqm Invalid Interpretation Code AO Chemistry S Comment on above: Interpretive Data: GFR Population mean for , Non- Americans Ages 20-29 = 116 mL/min/1.73 sq.m. Ages 30-39 = 107 mL/min/1.73 sq.m. Ages 40-49 = 99 mL/min/1.73 sq.m. Ages 50-59 = 93 mL/min/1.73 sq.m. Ages 60-69 = 85 mL/min/1.73 sq.m. Ages 70+ = 75 mL/min/1.73 sq.m. Chronic Kidney Disease: Less than 60 mL/min/1.73 square meters End Stage Renal Disease: Less than 15 mL/min/1.73 square meters GFR/1.73 sq M.predicted among non-blacks MDRD (S/P/Bld) [Vol rate/Area] 171 ml/min/1.73sqm Invalid Interpretation Code AO Chemistry S Comment on above: Interpretive Data: GFR Population mean for , Non- Americans Ages 20-29 = 116 mL/min/1.73 sq.m. Ages 30-39 = 107 mL/min/1.73 sq.m. Ages 40-49 = 99 mL/min/1.73 sq.m. Ages 50-59 = 93 mL/min/1.73 sq.m. Ages 60-69 = 85 mL/min/1.73 sq.m. Ages 70+ = 75 mL/min/1.73 sq.m. Chronic Kidney Disease: Less than 60 mL/min/1.73 square meters End Stage Renal Disease: Less than 15 mL/min/1.73 square meters Glucose [Mass/Vol] 91 mg/dL Normal 70 - 105 mg/dL AO ADM SS Potassium [Moles/Vol] 4.0 mmol/L Normal 3.5 - 5.1 mmol/L AO ADM SS Sodium [Moles/Vol] 135 mmol/L Low 136 - 145 mmol/L AO ADM SS Urea nitrogen [Mass/Vol] 6 mg/dL Low 7 - 18 mg/dL AO ADM SS Urea nitrogen/Creatinine [Mass ratio] 13 ratio Normal 7 - 27 ratio AO ADM SS Bacteria Ur Culton 4 Bacteria identified Cx Nom (U) ORGANISM ID: 1 >=100,000 CFU/ml Staphylococcus epidermidis No further workup Normal urogenital sarahi: Normal [facility] Comment on above: Performed By: #### 6 30-4 ####[facility] [id number] [place] [address] [place] C. trachomatis+N. gonorrhoea e DNA LILIA+probe Ql (Unsp spec)on 01-15-2024 C. trachomatis rRNA LILIA+probe Ql (Unsp spec) Positive Abnormal Negative for Chlamydia trachomatis by amplificaton [facility] Comment on above: Order Comment: Speci men Type: SWAB Ordering Facility: [facility] Address: [address] [place] [address] Performed By: #### 3 6902-5 #### [facility] CLIA [id number] [address] [place] [address] [place] N. gonorrhoeae rRNA LILIA+probe Ql (Unsp spec) Negative Normal Negative for Neisseria gonorrhoeae by amplification [facility] Comment on above: Order Comment: Speci men Type: SWAB Ordering Facility: [facility] Address: [address] [place] [address] Performed By: #### 3 6902-5 #### [facility] CLIA [id number] [address] [place] [address] [place] No Panel Informationon 01-14 [facility] PAP TESTon 01-15-2024 ADEQUACY Normal [facility] Comment on above: Order Comment: Speci men Type: SWAB Ordering Facility: [facility] Address: [address] [place] [address] Result Comment: Sati sfactory for interpretation No endocervical component Performed By: #### 3 6902-5 #### [facility] CLIA [id number] [address] [place] [address] [place] CASE REPORT Normal [facility] Comment on above: Order Comment: Speci men Type: SWAB Ordering Facility: [facility] Address: [address] [place] [address] Result Comment: Gyne cologic Cytology Report Case: [id number] Authorizing Provider: Evie Montes APRN.APPLIANCE TESTER Collected: 01/15/2024 12:15 PM Ordering Location: OB/Gynecology Received: 01/15/2024 03:29 PM First Screen: Zhorova, Jermyn, CT, ASCP Specimen: Pap Test, ThinPrep, Cervix Performed By: #### 3 6902-5 #### [facility] CLIA [id number] [address] [place] [address] [place] CLINICAL HISTORY, CYTOLOGY, PROGRAMMING COORDINATOR Routine Exam Normal [facility] Comment on above: Order Comment: Speci men Type: SWAB Ordering Facility: [facility] Address: [address] [place] [address] Performed By: #### 3 6902-5 #### [facility] CLIA [id number] [address] [place] [address] [place] CYTOLOGY PAP OTHER INT Predominance of coccobacilli consistent with shift in vaginal sarahi Normal [facility] Comment on above: Order Comment: Speci men Type: SWAB Ordering Facility: [facility] Address: [address] [place] [address] Performed By: #### 3 6902-5 #### [facility] CLIA [id number] [address] [place] [address] [place] FINAL PERFORMING LAB Normal [facility] Comment on above: Order Comment: Speci men Type: SWAB Ordering Facility: [facility] Address: [address] [place] [address] Result Comment: Tech nical component, stripper and taper screening performed at [facility], [address] [place] [id number] CLIA# [id number] Diagnostic interpretation performed at [facility], [address] [place], [place] [id number] CLIA# [id number] Rental Counter Clerk: Randal Florez M.D. Performed By: #### 3 6902-5 #### [facility] CLIA [id number] [address] [place] [address] [place] HPV REFLEX HPV if Atypical Normal [facility] Comment on above: Order Comment: Speci men Type: SWAB Ordering Facility: [facility] Address: [address] [place] [address] Performed By: #### 3 6902-5 #### [facility] CLIA [id number] [address] [place] [address] [place] INTERPRETATION, CYTOLOGY, PROGRAMMING COORDINATOR Normal [facility] Comment on above: Order Comment: Speci men Type: SWAB Ordering Facility: [facility] Address: [address] [place] [address] Result Comment: Nega tive for intraepithelial lesion or malignancy. Performed By: #### 3 6902-5 #### [facility] CLIA [id number] [address] [place] [address] [place] LMP 11/18/2023 Normal [facility] Comment on above: Order Comment: Speci men Type: SWAB Ordering Facility: [facility] Address: [address] [place] [address] Performed By: #### 3 6902-5 #### [facility] CLIA [id number] [address] [place] [address] [place] PAP DISCLAIMER COMMENT The Pap Smear is a screening test for cervical cancer. False negative results occur with all screening tests, emphasizing the need for rescreening at recommended intervals, and clinical correlation. Normal [facility] Comment on above: Order Comment: Speci men Type: SWAB Ordering Facility: [facility] Address: [address] [place] [address] Performed By: #### 3 6902-5 #### [facility] CLIA [id number] [address] [place] [address] [place] PAP ROTARY FURNACE TENDER COMMENT This specimen has be en analyzed by the ThinPrep Imaging System, an automated imaging and review system, which assists the laboratory in evaluating cells on ThinPrep Pap tests. Following automated imaging, selected donahue from every slide are reviewed by a stripper and taper. Normal [facility] Comment on above: Order Comment: Speci men Type: SWAB Ordering Facility: [facility] Address: [address] [place] [address] Performed By: #### 3 6902-5 #### [facility] CLIA [id number] [address] [place] [address] [place] B-HCG [facility] 4 HCG.beta subunit Qn 8034.0 m[IU]/mL High <5.0 [facility] Comment on above: Order Comment: Speci men Type: BLOOD SPECIMENOrdering Facility: [facility] Address: [address] [place] [address] Result Comment: FRANCIE TITATIVE HCG NORMAL RANGES Weeks of Gestation (Weeks Since LMP) 3 Weeks (5.8-71.2 mIU/mL) 4 Weeks (9.5-750 mIU/mL) 5 Weeks (217-7138 mIU/mL) 6 Weeks (158-15853 mIU/mL) 7 Weeks (3697-317526 mIU/mL) 8 Weeks (78455-673704 mIU/mL) 9 Weeks (12289-130530 mIU/mL) 10 Weeks (32051-673313 mIU/mL) 12 Weeks (82790-853474 mIU/mL) Referenced to 4th IS of [facility] Performed By: #### 2 1198-7 ####[facility] [id number] [place] [address] [place] CNPNon 2024 CNPN Telephone (OBGYWM) LUZMARIA HEARN ([id number]) 1 F Date Time Provider Department 01/02/24 NALLELY ROMERO OBGYWM During your visit today, we recorded the following information about you: Valentina Falcon RN 2024 3:34 PM Signed LMP 11/17 hCG Quantitative, Blood Date Value 12/29/2023 2,007.0 mIU/mL 12/28/2023 1460 Patient called because she went to the bathroom and noted blood when she wiped. Light amount. Denies cramping or pain. Patient tearful on phone. Would you like her to have another hCG quant done? NOB is 01/14. Reviewed bleeding precautions. Valentina Falcon, Jocelynn Roque MD 2024 4:08 PM Signed I am sorry this happened on her birthday! Yes repeat quant ordered. Is she having any pain? Schedule formal US for next week but call us if pain or heavier bleeding. MD Yo Plunkett Kimberly, LPN 2024 4:14 PM Signed Pt voiced understanding and is on her way in to have lab work drawn today. Pt will then have help desk rep staff schedule her follow up ultrasound. Pt reports that she is having some slight cramping. Frances Ram LPN Allergies As of Date: 2024 (No Known Allergies) Date Reviewed: 01/01/2024 Reviewed by: Evie Montes APRN.APPLIANCE TESTER - Fully Assessed Reason for Visit: Early OB Bleeding [Other] Primary Visit Diagnosis:Vaginal bleeding in , first trimester [O20.9] Order(s):HCG QUANTITATIVE [SQHCGQT] Order #: [id number] FUTURE US FEMALE PELVIS TRANSVAG [0108520] Order #: [id number] FUTURE Prescriptions as of 2024 - PNV no.95/ferrous fum/folic ac ( ORAL) Take by mouth. - ondansetron (ZOFRAN) 4 mg tablet Take 1 tablet by mouth every 8 hours as needed for nausea/vomiting. - pantoprazole DR (PROTONIX) 40 mg tablet Take 1 tablet by mouth once daily. Problem List As Of Date 2024 Noted Resolved High risk teen [O09.899] 06/09/2016 01/26/2021 History of depression [Z86.59] 06/09/2016 01/26/2021 Quit smoking [Z87.891] 06/09/2016 01/26/2021 Nausea and vomiting during [O21.9] 06/09/2016 01/26/2021 Family history of defects [Z82.79] 06/09/2016 01/26/2021 Rubella non-immune status, antepartum [O09.899,*07/28/2016 01/26/2021 High risk with elevated human chorion*09/20/2016 01/26/2021 Nausea/vomiting in [O21.9] 01/01/2024 Encounter Status:Closed by FRANCES RAM on 01/02/24 Normal [facility] HCG QUANTITATIVEon HCG.beta subunit Qn 8034.0 m[IU]/mL High <5.0 mIU/mL [facility] CNOVon 01-01-2024 CNOV Office Visit (OBGYWM ) LUZMARIA HEARN ([id number]) 1 F Date Time Provider Department 01/01/24 1:15 PM EVIE MONTES During your visit today, we recorded the following information about you: Blood pressure Weight Last Period 122/82 108 kg 10/18/23 Evie Montes APRN.APPLIANCE TESTER 01/01/2024 1:44 PM Signed Luzmaria Heanr is a 18 year old female who presents for problem visit of nausea and vomiting. HPI: Luzmaria is in her first trimester of . She is throwing up about 5 times per day. She has been taking a family member's Zofran prescription to help with the nausea. Intrauterine was confirmed with an ER visit. She is able to eat and drink. OB History T1 L1 SAB0 IAB0 Ectopic0 Multiple0 Live Births1 Outcomes Analyst History LMP: 10/27/2021, Having periods Age at Menarche: Age at First : Age at Menopause: Outcomes Analyst History Comments: Sexual Activity: No sexual activity [...] > 24 hours without food or water Evie Montes APRN.CNP Medical Decision Making: Problems: Low: Acute, uncomplicated illness or injury Risk: Low: Low risk from testing/treatment Moderate: Drug management Medical Decision Making Level: 3 - Low Evie Montes APRN.CNP 01/01/2024 1:32 PM Signed MORNING SICKNESS IN by Itzel Chin M.D. for [employer] As you may already know, morning sickness can often be more appropriately called evening sickness or dcguh-xmxhck-lj-the-day sickness. While there are the marisela few, [...] vomiting tend to be worse. In a pregna (more content not included)... Normal [facility] B-HCG SerPl-aCncon 4 HCG.beta subunit Qn 2007.0 m[IU]/mL High <5.0 [facility] Comment on above: Order Comment: Speci men Type: BLOOD SPECIMENOrdering Facility: [facility] Address: [address] [place] [address] Result Comment: FRANCIE TITATIVE HCG NORMAL RANGES Weeks of Gestation (Weeks Since LMP) 3 Weeks (5.8-71.2 mIU/mL) 4 Weeks (9.5-750 mIU/mL) 5 Weeks (217-7138 mIU/mL) 6 Weeks (158-56173 mIU/mL) 7 Weeks (3697-757486 mIU/mL) 8 Weeks (27970-927284 mIU/mL) 9 Weeks (80359-850209 mIU/mL) 10 Weeks (87453-966909 mIU/mL) 12 Weeks (15062-071581 mIU/mL) Referenced to 4th IS of [facility] Performed By: #### 2 1198-7 ####[facility] [id number] [place] [address] [place] Jenny 12-29-2023 NITZAN Telephone (MIRELAGYWM) LUZMARIA HEARN ([id number]) 1 F Date Time Provider Department 12/29/23 DANAE ASHRAF During your visit today, we recorded the following information about you: Angela George RN 12/29/2023 8:48 AM Signed Patient calling to schedule ER f/u. LMP 11/18, but only bled 2 days and was not normal for her. She was having significant right sided pain and n/v yesterday. With menses being late and symptoms she took UPT and it was positive so she went to [facility] ER. She is not having any pain this morning. No fever. Does have nausea/vomiting since 4am again. States that occurs every morning for the last few days and her appetite has been minimal. ER u/s showed intrauterine - yolk sac but no pole and 5.5cm right ovarian cyst. 12/28 hcg quant was 1460. ER records to to view. Please advise what follow up she needs. NOB will need scheduled too. SAFIA Dutton Sara, MD 12/29/2023 9:10 AM Signed Needs repeat HCG quant 48 hrs from draw. Start Vitamin B6 and Unisom for nausea. Give torsion precautions. To have NOB scheduled Angela George RN 12/29/2023 11:31 AM Signed Attempted to call patient. Unable to leave message because received message that wireless customer is not available and to please try again later. SAFIA Dutton Jennifer, RN 01/01/2024 8:32 AM Signed Patient called. Reviewed her Hcg quants on [employer]. She continues to have N/V. Reviewed recommendations sent in previous [employer] message. Again, advised to go to ER if she is unable to keep any food/fluids down in 24 hours. Scheduled her for a New OB on 01/14. hCG Quantitative, Blood Date Value 12/29/2023 2,007.0 mIU/mL 12/28 hcg quant was 1460 Allergies As of Date: 12/29/2023 (No Known Allergies) Date Reviewed: 11/16/2021 Reviewed by: Mary Araiza (Industrial Electrician Journeyman) - Fully Assessed Reason for Visit: ER F/U [41] Primary Visit Diagnosis:Early stage of [Z34.90] Order(s):HCG QUANTITATIVE [SQHCGQT] Order #: [id number] FUTURE Prescriptions as of 2024 - PNV no.95/ferrous fum/folic ac ( ORAL) Take by mouth. - ondansetron (ZOFRAN) 4 mg tablet Take 1 tablet by mouth every 8 hours as needed for nausea/vomiting. - pantoprazole DR (PROTONIX) 40 mg tablet Take 1 tablet by mouth once daily. Problem List As Of Date 12/29/2023 Noted Resolved High risk teen [O09.899] 06/09/2016 01/26/2021 History of depression [Z86.59] 06/09/2016 01/26/2021 Quit smoking [Z87.891] 06/09/2016 01/26/2021 Nausea and vomiting during [O21.9] 06/09/2016 01/26/2021 Family history of defects [Z82.79] 06/09/2016 01/26/2021 Rubella non-immune status, antepartum [O09.899,*07/28/2016 01/26/2021 High risk with elevated human chorion*09/20/2016 01/26/2021 Encounter Status:Closed by VALENTINA FALCON on 01/02/24 Normal [facility] HCG QUANTITATIVEon HCG.beta subunit Qn 2007.0 m[IU]/mL High <5.0 mIU/mL [facility] Progress Noteon 11-09-2023 Investment Trader Authentication Interface Message Text Patient ID: Luzmaria Hearn is a 18 y.o. female. Her chief complaint(s) include: Eye Pain (Monday night washed make up off and got some face wash in eye. She states she washed it well and used eye drops but the next morning felt something in it and felt swollen. She states she sees black spots and doesn't trust herself to drive. This morning woke up eye crusted shut. Eye is burning. ) Assessment 1. Pain of right eyelid 2. Acute conjunctivitis of right eye, unspecified acute conjunctivitis type Plan Luzmaria was seen today for eye pain. Diagnoses and associated orders for this visit: Pain of right eyelid - trimethoprim-polymyxin b (POLYTRIM) 27829-2.1 UNIT/ML-% ophthalmic solution; instill 1 Drop into both eyes 4 times daily for 7 days Acute conjunctivitis of right eye, unspecified acute conjunctivitis type Will treat empirically with antibiotic eye drops. Avoid rubbing eyes. Wash hands well. Advised to avoid cleansers near eyes in the future and use make-up remover approved for eyes instead. Patient to f/up if no improvement or new/worsening symptoms develop. Reviewed when to seek immediate medical attention (worsening eye pain or impairment in vision). Patient receptive and agreeable with plan. Plans to contact eye doctor tomorrow if no improvement after starting eye drops. Return for Well Visit and as needed. Subjective HPI Comments: Patient reports she washed face and eyes with Clean and Clear face wash (with micro beads). Experienced burning/stinging right away. Attempted to rinse eye well with water and even in the shower using the shower head to gently wash eye. Still reports pain to R upper eye and upper lid. Woke up yesterday with eye drainage and eye completely matted shut. Attempted to call eye doctor today, but they were closed. Reports black spots/blurred vision to middle of eye and to R side. Feels like something is scratching and my lid is swollen, but it isn't . She is accompanied by her significant other. Eye Pain This problem is new. The duration has been 2 days. The onset has been acute. The course is unchanging. The patient's symptoms have included right eye discharge. The patient's symptoms have included no fever, no eye redness, no congestion and no cough. (OTC Blink 3 in 1 and Systane eye gtts ). Review of Systems Eyes: Positive for pain. Objective Vital Signs 11/09/23 0933 Temp: 36.4 C (97.5 F) TempSrc: Temporal Weight: (!) 111.5 kg There is no height or weight on file to calculate BMI. Physical Exam Constitutional: She appears well. She is active. No distress. HENT: Head: Atraumatic. Ears: Left Ear: Tympanic membrane normal. Eyes: EOM are normal. Red reflex is present bilaterally. Visual tracking is normal. Eyes were examined with fluorescein. Pupils are equal, round, and reactive to light. Right eyelid exhibits tenderness (upper lid). Right eyelid exhibits no discharge, no edema and no erythema. Left eyelid exhibits no discharge, no edema and no erythema. Right conjunctiva is not injected. Left conjunctiva is not injected. No periorbital edema, tenderness or erythema on the right side. Pulmonary/Chest: Effort normal. There is normal air entry. Neurological: She is alert. Skin: Skin is warm and dry. Findings: No rash. Vitals reviewed: Temperature 36.4 C (97.5 F), temperature source Temporal, weight (!) 111.5 kg, last menstrual period 10/18/2023. Normal [facility] LABORATORYOrdered By: Claudia Craig on 10-25-2022 Appearance (U) Slightly Cloudy *ABN* (10/25/22 6:20 PM) Invalid Interpretation Code Clear AO Auto Urine SS Bacteria LM.HPF (Urine sed) [#/Area] 1 /[HPF] Invalid Interpretation Code AO Auto Urine SS Bilirubin Ql (U) Negative (10/25/22 6:20 PM) Invalid Interpretation Code Negative AO Auto Urine SS Color (U) Yellow (10/25/22 6:20 PM) Invalid Interpretation Code AO Auto Urine SS Glucose Test strip (U) [Mass/Vol] Negative Invalid Interpretation Code Negativemg/dL AO Auto Urine SS HCG ( test) Ql Negative (10/25/22 6:20 PM) Invalid Interpretation Code AO Manual Urine SS Hemoglobin Auto test strip (U) [Mass/Vol] Trace *ABN* (10/25/22 6:20 PM) Invalid Interpretation Code Negative AO Auto Urine SS Ketones Ql (U) Trace mg/dL Invalid Interpretation Code Negativemg/dL AO Auto Urine SS test (u) int Not detected Invalid Interpretation Code AO Manual Urine SS UA Leuk Est Trace *ABN* (10/25/22 6:20 PM) Invalid Interpretation Code Negative AO Auto Urine SS UA Mucous 1+ /HPF Invalid Interpretation Code AO Auto Urine SS UA Nitrite Negative (10/25/22 6:20 PM) Invalid Interpretation Code Negative AO Auto Urine SS UA pH 6.5 (10/25/22 6:20 PM) Invalid Interpretation Code 5.0 - 8.0 AO Auto Urine SS UA Protein Negative Invalid Interpretation Code Negativemg/dL AO Auto Urine SS UA RBC 0-5 /HPF Invalid Interpretation Code None Seen/HPF AO Auto Urine SS UA Spec Grav >=1.030 *ABN* (10/25/22 6:20 PM) Invalid Interpretation Code 1.015-1.025 AO Auto Urine SS UA Specimen Type Clean Catch (10/25/22 6:20 PM) Invalid Interpretation Code AO Auto Urine SS UA Squam Epithelial 5-10 /HPF Invalid Interpretation Code None Seen/HPF AO Auto Urine SS UA Urobilinogen 0.2 E.U./dL Invalid Interpretation Code 0.2-1.0E.U./dL AO Auto Urine SS WBC LM.HPF (Urine sed) [#/Area] 0-5 /HPF Invalid Interpretation Code None Seen/HPF AO Auto Urine SS LABORATORYOrdered By: SYSTEM SYSTEM on 10-25-2022 Albumin BCP dye [Mass/Vol] 4.0 G/dL Invalid Interpretation Code 3.5 - 5.0 G/dL AO ADM SS Albumin/Globulin [Mass ratio] 1.0 {ratio} Invalid Interpretation Code 1.1 - 2.5 ratio AO ADM SS ALP [Catalytic activity/Vol] 55 U/L Invalid Interpretation Code 40 - 135 U/L AO ADM SS ALT With P-5'-P [Catalytic activity/Vol] 69 U/L Invalid Interpretation Code 14 - 59 U/L AO ADM SS AST With P-5'-P [Catalytic activity/Vol] 31 U/L Invalid Interpretation Code 10 - 40 U/L AO ADM SS Bilirubin [Mass/Vol] 0.5 mg/dL Invalid Interpretation Code 0.2 - 1.0 mg/dL AO ADM SS Calcium [Mass/Vol] 9.2 mg/dL Invalid Interpretation Code 8.4 - 10.2 mg/dL AO ADM SS Chloride [Moles/Vol] 102 mmol/L Invalid Interpretation Code 98 - 107 mmol/L AO ADM SS CO2 [Moles/Vol] 28 mmol/L Invalid Interpretation Code 22 - 29 mmol/L AO ADM SS Creatinine [Mass/Vol] 0.68 mg/dL Invalid Interpretation Code 0.55 - 1.02 mg/dL AO ADM SS Electrolyte Balance 10.0 mEq/L Invalid Interpretation Code 4.0 - 15.0 mEq/L AO ADM SS GFR 135 ml/min/1.73sqm Invalid Interpretation Code AO Chemistry S GFR Non- 111 ml/min/1.73sqm Invalid Interpretation Code AO Chemistry S Globulin 4.1 G/dL Invalid Interpretation Code AO ADM SS Glucose [Mass/Vol] 96 mg/dL Invalid Interpretation Code 70 - 105 mg/dL AO ADM SS Lipase [Catalytic activity/Vol] 14 U/L Invalid Interpretation Code 16 - 77 U/L AO ADM SS Potassium [Moles/Vol] 3.7 mmol/L Invalid Interpretation Code 3.5 - 5.1 mmol/L AO ADM SS Protein [Mass/Vol] 8.1 G/dL Invalid Interpretation Code 6.4 - 8.2 G/dL AO ADM SS Sodium [Moles/Vol] 140 mmol/L Invalid Interpretation Code 136 - 145 mmol/L AO ADM SS Urea nitrogen [Mass/Vol] 9 mg/dL Invalid Interpretation Code 7 - 18 mg/dL AO ADM SS Urea nitrogen/Creatinine [Mass ratio] 13 ratio Invalid Interpretation Code 7 - 27 ratio AO ADM SS LABORATORYOrdered By: Jonah Torres on 10-25-2022 Basophil, Absolute 0.1 103/mcL Invalid Interpretation Code 0.0 - 0.2 10^3/mcL AO Workflow SS Basophils/100 WBC (Bld) 0.5 % Invalid Interpretation Code 0.0 - 2.5 % AO Workflow SS Eosinophil, Absolute 0.2 103/mcL Invalid Interpretation Code 0.0 - 0.4 10^3/mcL AO Workflow SS Eosinophils/100 WBC (Bld) 0.9 % Invalid Interpretation Code 0.0 - 7.0 % AO Workflow SS Erythrocyte distribution width (RBC) [Ratio] 13.4 % Invalid Interpretation Code 11.5 - 14.5 % AO Workflow SS Hematocrit (Bld) [Volume fraction] 44.5 % Invalid Interpretation Code 37.0 - 47.0 % AO Workflow SS Hemoglobin (Bld) [Mass/Vol] 15.0 G/dL Invalid Interpretation Code 12.0 - 16.0 G/dL AO Workflow SS Lymphocyte, Absolute 1.9 103/mcL Invalid Interpretation Code 0.8 - 3.9 10^3/mcL AO Workflow SS Lymphocytes/100 WBC (Bld) 10.1 % Invalid Interpretation Code 10.0 - 50.0 % AO Workflow SS MCH (RBC) [Entitic mass] 28.8 pg Invalid Interpretation Code 27.0 - 31.2 pg AO Workflow SS MCHC 33.7 G/dL Invalid Interpretation Code 33.0 - 37.0 G/dL AO Workflow SS MCV (RBC) [Entitic vol] 85.4 fL Invalid Interpretation Code 80.0 - 94.0 fL AO Workflow SS Monocyte distribution width Auto (Bld) [Entitic vol] 18.12 Invalid Interpretation Code 0.00 - 20.00 AO Workflow SS Comment on above: Result Comment: For ED adult patients suspected of sepsis, MDW<=20.0 does not rule out sepsis or risk of sepsis Monocyte, Absolute 0.9 103/mcL Invalid Interpretation Code 0.2 - 1.0 10^3/mcL AO Workflow SS Monocytes/100 WBC (Bld) 4.7 % Invalid Interpretation Code 1.7 - 13.0 % AO Workflow SS Neutrophil, Absolute 15.8 103/mcL Invalid Interpretation Code 2.9 - 6.2 10^3/mcL AO Workflow SS Neutrophils/100 WBC (Bld) 83.8 % Invalid Interpretation Code 37.0 - 80.0 % AO Workflow SS Platelet mean volume (Bld) [Entitic vol] 7.7 fL Invalid Interpretation Code 7.4 - 10.4 fL AO Workflow SS Platelets (Bld) [#/Vol] 373 103/mcL Invalid Interpretation Code 130 - 400 10^3/mcL AO Workflow SS RBC (Bld) [#/Vol] 5.22 106/mcL Invalid Interpretation Code 4.20 - 5.40 10^6/mcL AO Workflow SS WBC (Bld) [#/Vol] 18.8 103/mcL Invalid Interpretation Code 4.6 - 10.8 10^3/mcL AO Workflow SS LABORATORYOrdered By: Yesy Sue on 10-25-2022 FLUAV RNA LILIA+probe Ql (Upper resp) Negative (10/25/22 3:28 PM) Invalid Interpretation Code Negative AO Auto Urine SS FLUBV RNA LILIA+probe Ql (Upper resp) Negative (10/25/22 3:28 PM) Invalid Interpretation Code Negative AO Auto Urine SS RSV RNA LILIA+probe Ql (Upper resp) Negative (10/25/22 3:28 PM) Invalid Interpretation Code Negative AO Auto Urine SS SARS-CoV-2 (COVID-19) RNA LILIA+probe Ql (Resp) Positive results are indicative of the presence of SARS-CoV-2 RNA; clinical correlation with patient history and other diagnostic information is necessary to determine patient infection status. Positive results do not rule out bacterial infection or co-infection with other viruses. The agent detected may not be the definite cause of disease. Laboratories within the [place] and its territories are required to report all positive results to the appropriate public health authorities.Detection of analyte target(s) does not imply that the corresponding virus(es) are infectious or are the causative agents for clinical symptoms.There is a risk of false positive values resulting from cross-contamination by target organisms, their nucleic acids or amplified product, or from non-specific signals in the assay.KRYSTINA SARS-CoV-2 Assay is a Real-Time reverse-transcriptase polymerase chain reaction (RT-PCR) based qualitative in vitro diagnostic test intended for the qualitative detection of nucleic acid from the SARS-CoV-2 in nasopharyngeal swab specimens collected from individuals suspected of COVID-19 by their healthcare provider. Testing is limited to laboratories certified under the Clinical Laboratory Improvement Amendments of 1988 (CLIA), 42 U.S.C. 263a, to perform moderate and high complexity tests. Invalid Interpretation Code AO Auto Urine SS CNOVon 03-14-2018 CNOV Office Visit (WSTR) LUZMARIA HEARN ([id number]) 03 FDate Time Provider Department03/14/18 11:00 AM GEMMA STALLINGS ([facility]) [facility] During your visit today, we recorded the following information about you: Temperature Pulse Respiration Weight 97.7 degrees 78/minute 16/minute 94.3 kg Last Period 03/14/18Gemma Stallings ([facility]) 03/14/2018 11:30 AM SignedSubjectiveHPI Luzmaria Hearn is a 13 year old female who presents with welts on her legsand stomach and she saw the other Urgent Care in [place], who gave herAugmentin and prednisone and told her she had a skin disease. She took themedication and states they improved some but came back after finishing themedication. Bumps are not itching but are painful. She has had these in thepast and sometimes they rupture on their own and leave scars.Review of SystemsConstitutional: Negative. Negative for fever.Musculoskeletal: Negative. Negative for joint pain and myalgias.Skin: Positive for rash. Negative for itching. Pulse 78 Temp 36.5 ?C (97.7 ?F) (Tympanic) Resp 16 Wt 94.3 kg (208lb) LMP 03/14/2018No past medical history on file.No past surgical history on file.ALLERGIES Patient has no known allergies.MEDICATIONS No prescriptions on file.No family history on file.Social HistorySubstance Use Topics- Smoking status: Never Smoker- Smokeless tobacco: Never Used- Alcohol use Not on fileObjectivePhysical ExamConstitutional: She is well-developed, well-nourished, and in no distress.Neurological: She is alert.Skin: Skin is warm and dry. There is erythema.Nursing note and vitals reviewed. ASSESSMENT/PLAN:1. Skin infection - ICD9: 686.9, ICD10: L08.9- Begin treatment with Cephalaxin (Keflex)- No lymphangetic streaking, this was defined for patient to watch for and toseek medical care immediately if appears- CEPHALEXIN 500 MG CAPSULE- MUPIROCIN 2 % NASAL OINTMENT- Follow-up with your PCP in 3-5 days if symptoms have not improved or soonerif symptoms worsen- Discussed red flags and need for immediate medical evaluation if any occur.- Discussed supportive care treatment with fluids, rest and analgesia.- Discussed expected course of illnessGemma Stallings APRN.CNPPraisler-Wood, Kathy ([facility]) 03/14/2018 11:15 AM SignedTake medications as prescribed. If not improving in 3-5 days, or you haveworsening symptoms, see your primary care provider for recheck.Referring Provider: SELF [[id number]]Allergies As of Date: 03/14/2018(No Known Allergies)Date Reviewed: 03/14/2018Reviewed by: Gemma Stallings ([facility]) - Fully AssessedReason for Visit: Hives [56] Cmt: welts on legs x couple months did get treated previously, painfulPrimary Visit Diagnosis:Skin infection [L08.9]Order(s):cephALE Jane (KEFLEX) 500 mg capsuleTake 1 capsule by mouth twice daily for 10 days.Disp: 20 capsuleRfl: 0 mupirocin (BACTROBAN NASAL) 2 % nasal ointmentUse 1 application in the nose twice daily for 7 days.Disp: 1 gRfl: 0Prescriptions as of 03/14/2018 Sig: CEPHALEXIN 500 MG CAPSULE Take 1 capsule by mouth twice* MUPIROCIN 2 % NASAL OINTMENT Use 1 application in the nose*Problem List As Of Date: 03/14/2018(None) Other instructions from your clinician: Take medications as prescribed. If not improving in 3-5 days, or you have worsening symptoms, see your primary care provider for recheck.Prescriptions ordered this encounter Disp Refills Start End CEPHALEXIN 500 MG CAPSULE 20 c* 0 03/14/2018 03/24/2018 Route: ORAL Sig: Take 1 capsule by mouth twice daily for 10 days. MUPIROCIN 2 % NASAL OINTMENT 1 g 0 03/14/2018 03/21/2018 Route: NASAL Sig: Use 1 application in the nose twice daily for 7 days.Letter Lynn Stallings APRN.[facility] Urgent [id number] [facility] [address]Moyp: [phone]/9/2018Christo jayden Ynun850 Rosalina Giles [address] [address]Dn Whom it May Concern:This is to certify that Luzmaria Hearn was seen at our office for medical care.Luzmaria may return to school on 03/15/2018.If you have any questions please feel free to call.Sincerely:Gemma Stallings APRN.[facility]ITALEncounter Number: [id number] Status:Closed by GEMMA STALLINGS on 03/14/18 Normal [facility] PROGRESSon 03-14-2018 PROGRESS HNO ID: [id number]: Gemma Stallings ([facility])Service: (none)Author Type: Nurse PractitionerType: Progress NotesFiled: 03/14/2018 11:30 AMNote Text:SubjectiveHPI Luzmaria Hearn is a 13 year old female who presents with welts on herlegs and stomach and she saw the other Urgent Care in [place], who gaveher Augmentin and prednisone and told her she had a skin disease. She tookthe medication and states they improved some but came back after finishingthe medication. Bumps are not itching but are painful. She has had thesein the past and sometimes they rupture on their own and leave scars.Review of SystemsConstitutional: Negative. Negative for fever.Musculoskeletal: Negative. Negative for joint pain and myalgias.Skin: Positive for rash. Negative for itching. Pulse 78 Temp 36.5 ?C (97.7 ?F) (Tympanic) Resp 16 Wt 94.3 kg(208 lb) LMP 03/14/2018No past medical history on file.No past surgical history on file.ALLERGIES Patient has no known allergies.MEDICATIONS No prescriptions on file.No family history on file.Social HistorySubstance Use Topics- Smoking status: Never Smoker- Smokeless tobacco: Never Used- Alcohol use Not on fileObjectivePhysical ExamConstitutional: She is well-developed, well-nourished, and in no distress.Neurological: She is alert.Skin: Skin is warm and dry. There is erythema.Nursing note and vitals reviewed. ASSESSMENT/PLAN:1. Skin infection - ICD9: 686.9, ICD10: L08.9- Begin treatment with Cephalaxin (Keflex)- No lymphangetic streaking, this was defined for patient to watch forand to seek medical care immediately if appears- CEPHALEXIN 500 MG CAPSULE- MUPIROCIN 2 % NASAL OINTMENT- Follow-up with your PCP in 3-5 days if symptoms have not improved orsooner if symptoms worsen- Discussed red flags and need for immediate medical evaluation if anyoccur.- Discussed supportive care treatment with fluids, rest and analgesia.- Discussed expected course of illnessGemma Stallings APRN.APPLIANCE TESTER Normal [facility] Vital Signs Date Time Vital Sign Value Performing Clinician Facility 08-28-2024 10:52-0400 Body mass index (BMI) [Ratio] 37.24 kg/m2 Valentina Yo MD Work Phone: [facility] 08-28-2024 10:52-0400 Body weight 103.87 kg Valentina Yo MD Work Phone: [facility] 08-28-2024 10:52-0400 Diastolic blood pressure 72 mm[Hg] Valentina Yo MD Work Phone: [facility] 08-28-2024 10:52-0400 Systolic blood pressure 119 mm[Hg] Valentina Yo MD Work Phone: [facility] 08-26-2024 14:29-0400 Body mass index (BMI) [Ratio] 37.41 kg/m2 Jackie Candelaria APRN.CNM Work Phone: [facility] 08-26-2024 14:29-0400 Body weight 104.33 kg Jackie Candelaria [employer] MECHANICAL SPECIALIST.CNM Work Phone: [facility] 08-26-2024 14:29-0400 Diastolic blood pressure 87 mm[Hg] Jackie Candelaria NUC[employer] WE[employer] MECHANICAL SPECIALIST.CNM Work Phone: [facility] 08-26-2024 14:29-0400 Systolic blood pressure 137 mm[Hg] Jackie Candelaria [employer]UC[employer] WE[employer] MECHANICAL SPECIALIST.CNM Work Phone: [facility] 08-22-2024 15:00-0400 Body mass index (BMI) [Ratio] 37.57 kg/m2 Nallely Romero MD Work Phone: [facility] 08-22-2024 15:00-0400 Body weight 104.78 kg Nallely Romero MD Work Phone: [facility] 08-22-2024 15:00-0400 Diastolic blood pressure 64 mm[Hg] Nallely Romero MD Work Phone: [facility] 08-22-2024 15:00-0400 Systolic blood pressure 114 mm[Hg] Nallely Romero MD Work Phone: [facility] 08-16-2024 10:32-0400 Body mass index (BMI) [Ratio] 37.08 kg/m2 Jackie Candelaria [employer] MECHANICAL SPECIALIST.CNM Work Phone: [facility] 08-16-2024 10:32-0400 Body weight 103.42 kg Jackie Candelaria [employer] MECHANICAL SPECIALIST.CNM Work Phone: [facility] 08-16-2024 10:32-0400 Diastolic blood pressure 81 mm[Hg] Jackie Candelaria NUC[employer] WE[employer] MECHANICAL SPECIALIST.CNM Work Phone: [facility] 08-16-2024 10:32-0400 Systolic blood pressure 127 mm[Hg] Jackie Candelaria [employer] MECHANICAL SPECIALIST.CNM Work Phone: [facility] 08-09-2024 09:51-0400 Body mass index (BMI) [Ratio] 37.41 kg/m2 Valentina Yo MD Work Phone: [facility] 08-09-2024 09:51-0400 Body weight 104.33 kg Valentina Yo MD Work Phone: [facility] 08-09-2024 09:51-0400 Diastolic blood pressure 74 mm[Hg] Valentina Yo MD Work Phone: [facility] 08-09-2024 09:51-0400 Systolic blood pressure 117 mm[Hg] Valentina Yo MD Work Phone: [facility] 08-02-2024 10:20-0400 Body mass index (BMI) [Ratio] 36.59 kg/m2 Oneida Plotts [employer] MECHANICAL SPECIALIST.CNM Work Phone: [facility] 08-02-2024 10:20-0400 Body weight 102.06 kg Oneida Plotts [employer] MECHANICAL SPECIALIST.CNM Work Phone: [facility] 08-02-2024 10:20-0400 Diastolic blood pressure 73 mm[Hg] Oneida Plotts [employer] MECHANICAL SPECIALIST.CNM Work Phone: [facility] 08-02-2024 10:20-0400 Systolic blood pressure 114 mm[Hg] Oneida Plotts [employer] MECHANICAL SPECIALIST.CNM Work Phone: [facility] 07-29-2024 11:52-0400 Diastolic blood pressure 68 mm[Hg] Ob [facility] 07-29-2024 11:52-0400 Heart rate 85 /min [facility] 07-29-2024 11:52-0400 Systolic blood pressure 116 mm[Hg] Ob [facility] 07-26-2024 09:52-0400 Body mass index (BMI) [Ratio] 36.92 kg/m2 Oneida Plotts [employer] MECHANICAL SPECIALIST.CNM Work Phone: [facility] 07-26-2024 09:52-0400 Body weight 102.97 kg Oneida Mattson [employer]UC[employer] MECHANICAL SPECIALIST.CNM Work Phone: [facility] 07-26-2024 09:52-0400 Diastolic blood pressure 60 mm[Hg] Oneida Plotts N[employer] MECHANICAL SPECIALIST.CNM Work Phone: [facility] 07-26-2024 09:52-0400 Systolic blood pressure 110 mm[Hg] Oneida Mattson APRNJaniceCNM Work Phone: [facility] 07-16-2024 11:17-0400 Body mass index (BMI) [Ratio] 36.76 kg/m2 Valentina Yo MD Work Phone: [facility] 07-16-2024 11:17-0400 Body weight 102.51 kg Valentina Yo MD Work Phone: [facility] 07-16-2024 11:17-0400 Diastolic blood pressure 68 mm[Hg] Valentina Yo MD Work Phone: [facility] 07-16-2024 11:17-0400 Systolic blood pressure 122 mm[Hg] Valentina Yo MD Work Phone: [facility] 06-28-2024 10:11-0400 Body mass index (BMI) [Ratio] 37.41 kg/m2 Valentina Yo MD Work Phone: [facility] 06-28-2024 10:11-0400 Body weight 104.33 kg Valentina Yo MD Work Phone: [facility] 06-28-2024 10:11-0400 Diastolic blood pressure 72 mm[Hg] Vlaentina Yo MD Work Phone: [facility] 06-28-2024 10:11-0400 Systolic blood pressure 124 mm[Hg] Valentina Yo MD Work Phone: [facility] 06-14-2024 09:23-0400 Body mass index (BMI) [Ratio] 37.99 kg/m2 Valentina Yo MD Work Phone: [facility] 06-14-2024 09:23-0400 Body weight 105.96 kg Valentina Yo MD Work Phone: [facility] 06-14-2024 09:23-0400 Diastolic blood pressure 76 mm[Hg] Valentina Yo MD Work Phone: [facility] 06-14-2024 09:23-0400 Systolic blood pressure 120 mm[Hg] Valentina Yo MD Work Phone: [facility] 05-31-2024 09:01-0400 Body mass index (BMI) [Ratio] 36.92 kg/m2 Evie Montes APRN.APPLIANCE TESTER Work Phone: [facility] 05-31-2024 09:01-0400 Body weight 102.97 kg Evie Montes APRN.APPLIANCE TESTER Work Phone: [facility] 05-31-2024 09:01-0400 Diastolic blood pressure 74 mm[Hg] Evie Montes NUC[employer] MECHANICAL SPECIALIST.APPLIANCE TESTER Work Phone: [facility] 05-31-2024 09:01-0400 Heart rate 110 /min Evie Montes APRN.APPLIANCE TESTER Work Phone: [facility] 05-31-2024 09:01-0400 Respiratory rate 14 /min Evie Montes APRN.APPLIANCE TESTER Work Phone: [facility] 05-31-2024 09:01-0400 SaO2% (BldA) [Mass fraction] 98 % Evie Montes APRN.APPLIANCE TESTER Work Phone: [facility] 05-31-2024 09:01-0400 Systolic blood pressure 118 mm[Hg] Evie Montes APRN.APPLIANCE TESTER Work Phone: [facility] 05-03-2024 09:45-0400 Body mass index (BMI) [Ratio] 37.02 kg/m2 Jackie Candelaria APRN.CNM Work Phone: [facility] 05-03-2024 09:45-0400 Body weight 103.24 kg Jackie Candelaria APRN.CNM Work Phone: [facility] 05-03-2024 09:45-0400 Diastolic blood pressure 68 mm[Hg] Jackie Candelaria APRN.CNM Work Phone: [facility] 05-03-2024 09:45-0400 Systolic blood pressure 110 mm[Hg] Jackie Candelaria APRN.CNM Work Phone: [facility] 04-16-2024 18:35-0400 Body mass index (BMI) [Ratio] 36.93 kg/m2 Krislyn Aberegg PA Work Phone: [facility] 04-16-2024 18:35-0400 Body temperature 99.5 [degF] Krislyn Aberegg PA Work Phone: [facility] 04-16-2024 18:35-0400 Body weight 103 kg Krislyn Aberegg PA Work Phone: [facility] 04-16-2024 18:35-0400 Diastolic blood pressure 82 mm[Hg] Krislyn Aberegg PA Work Phone: [facility] 04-16-2024 18:35-0400 Heart rate 98 /min Krislyn Aberegg PA Work Phone: [facility] 04-16-2024 18:35-0400 Respiratory rate 20 /min Krislyn Aberegg PA Work Phone: [facility] 04-16-2024 18:35-0400 SaO2% (BldA) [Mass fraction] 96 % Krislyn Aberegg PA Work Phone: [facility] 04-16-2024 18:35-0400 Systolic blood pressure 132 mm[Hg] Krislyn Aberegg PA Work Phone: [facility] 04-11-2024 15:05-0400 Body mass index (BMI) [Ratio] 36.84 kg/m2 [facility] 04-11-2024 15:05-0400 Body weight 102.[address] [facility] 03-29-2024 09:35-0400 Body mass index (BMI) [Ratio] 37.41 kg/m2 Jocelynn Araiza MD Work Phone: [facility] 03-29-2024 09:35-0400 Body weight 104.33 kg Jocelynn Araiza MD Work Phone: [facility] 03-29-2024 09:35-0400 Diastolic blood pressure 62 mm[Hg] Jocelynn Araiza MD Work Phone: [facility] 03-29-2024 09:35-0400 Systolic blood pressure 104 mm[Hg] Jocelynn Araiza MD Work Phone: [facility] 03-19-2024 14:17-0400 Body height 160 cm ADILIA WONGT DO [facility] 03-19-2024 14:17-0400 Body temperature 97.88 [degF] ADILIA WONGT DO [facility] 03-19-2024 14:17-0400 Body weight 109.1 kg ADILIA WONGT DO [facility] 03-19-2024 14:17-0400 Diastolic Blood Pressure Non-Invasive 80 mm[Hg] ADILIA WONGT [facility] 03-19-2024 14:17-0400 Heart rate 85 /min ADILIA WONGT [facility] 03-19-2024 14:17-0400 Respiratory rate 20 /min ADILIA WONGT DO [facility] 03-19-2024 14:17-0400 Systolic Blood Pressure Non-Invasive 120 mm[Hg] ADILIA OHARA DO [facility] 02-15-2024 09:45-0400 Body weight 106.14 kg Valentina Yo MD Work Phone: [facility] 02-15-2024 09:45-0400 Diastolic blood pressure 66 mm[Hg] Valentina Yo MD Work Phone: [facility] 02-15-2024 09:45-0400 Systolic blood pressure 112 mm[Hg] Valentina Yo MD Work Phone: [facility] 01-25-2024 10:55-0400 Body weight 106.05 kg Oneida Plotts NUCLE[employer] MECHANICAL SPECIALIST.CNM Work Phone: [facility] 01-25-2024 10:55-0400 Diastolic blood pressure 70 mm[Hg] Oneida Plotts NUC[employer] WE[employer] MECHANICAL SPECIALIST.CNM Work Phone: [facility] 01-25-2024 10:55-0400 Systolic blood pressure 114 mm[Hg] Oneida Plotts NUCLE[employer] WE[employer] MECHANICAL SPECIALIST.CNM Work Phone: [facility] 01-18-2024 10:10-0400 Body weight 107.05 kg Oneida Plotts NUCLE[employer] WEAP[employer] MECHANICAL SPECIALIST.CNM Work Phone: [facility] 01-18-2024 10:10-0400 Diastolic blood pressure 70 mm[Hg] Oneida Plotts NUCLE[employer] WEAP[employer] MECHANICAL SPECIALIST.CNM Work Phone: [facility] 01-18-2024 10:10-0400 Systolic blood pressure 116 mm[Hg] Oneida Plotts NUCLE[employer] WE[employer] MECHANICAL SPECIALIST.CNM Work Phone: [facility] 01-16-2024 22:13-0400 Diastolic Blood Pressure Non-Invasive 88 mm[Hg] TARIQ YODER MD [facility] 01-16-2024 22:13-0400 Heart rate 85 /min TARIQ YODER MD [facility] 01-16-2024 22:13-0400 Respiratory rate 16 /min TARIQ YODER MD [facility] 01-16-2024 22:13-0400 Systolic Blood Pressure Non-Invasive 133 mm[Hg] TARIQ YODER MD [facility] 01-16-2024 20:19-0400 Body temperature 98.96 [degF] TARIQ YODER MD [facility] 01-16-2024 20:19-0400 Body weight 108.5 kg TARIQ YODER MD [facility] 01-16-2024 20:19-0400 Diastolic Blood Pressure Non-Invasive 89 mm[Hg] TARIQ YODER MD [facility] 01-16-2024 20:19-0400 Heart rate 94 /min TARIQ YOEDR MD [facility] 01-16-2024 20:19-0400 Respiratory rate 18 /min TARIQ YODER MD [facility] 01-16-2024 20:19-0400 Systolic Blood Pressure Non-Invasive 134 mm[Hg] TARIQ YODER MD [facility] 01-15-2024 10:16-0400 Body height 167 cm Evie Muhammadgary NUCLE[employer] WEAPONS MECHANICAL SPECIALIST.APPLIANCE TESTER Work Phone: [facility] 01-15-2024 10:16-0400 Body weight 108.5 kg Evie Montes NUCLE[employer] WEAP[employer] MECHANICAL SPECIALIST.APPLIANCE TESTER Work Phone: [facility] 01-15-2024 10:16-0400 Diastolic blood pressure 66 mm[Hg] Evie Muhammadury NUCLE[employer] WEAP[employer] MECHANICAL SPECIALIST.APPLIANCE TESTER Work Phone: [facility] 01-15-2024 10:16-0400 Systolic blood pressure 124 mm[Hg] Evie Muhammadury NUCLE[employer] WEAP[employer] MECHANICAL SPECIALIST.APPLIANCE TESTER Work Phone: [facility] 10-25-2022 21:01-0500 Diastolic Blood Pressure Non-Invasive 75 1 CLARE LIZ MD [facility] 10-25-2022 21:01-0500 Heart rate 85 /min CLARE LIZ MD [facility] 10-25-2022 21:01-0500 Respiratory rate 18 /min CLARE LIZ MD [facility] 10-25-2022 21:01-0500 Systolic Blood Pressure Non-Invasive 127 1 CLARE LIZ MD [facility] 10-25-2022 18:10-0500 Diastolic Blood Pressure Non-Invasive 68 1 CLARE LIZ MD [facility] 10-25-2022 18:10-0500 Heart rate 95 /min CLARE LIZ MD [facility] 10-25-2022 18:10-0500 Respiratory rate 11 /min CLARE LIZ MD [facility] 10-25-2022 18:10-0500 Systolic Blood Pressure Non-Invasive 140 1 CLARE LIZ MD [facility] 10-25-2022 16:12-0500 Diastolic Blood Pressure Non-Invasive 75 1 CLARE LIZ MD [facility] 10-25-2022 16:12-0500 Heart rate 79 /min CLARE LIZ MD [facility] 10-25-2022 16:12-0500 Respiratory rate 12 /min CLARE LIZ MD [facility] 10-25-2022 16:12-0500 Systolic Blood Pressure Non-Invasive 127 1 CLARE LIZ MD [facility] 10-25-2022 14:48-0500 Blood Pressure Location CLARE LIZ MD [facility] 10-25-2022 14:48-0500 Blood Pressure Method CLARE LIZ MD [facility] 10-25-2022 14:48-0500 Body temperature 96.8 [degF] CLARE LIZ MD [facility] Encounters Encounter Date Encounter Type Care Provider Facility Start: 08-28-2024 End: 08-28-2024 Office outpatient visit 15 minutes Valentina Yo MD Work Phone: OB/Gynecology Comment on above: 40 weeks gestation o f (Primary Dx); Obesity in , antepartum; Encounter for supervision of high risk in third trimester, antepartum Start: 08-26-2024 End: 08-26-2024 Patient encounter procedure Jackie Candelaria APRN.CNM Work Phone: OB/Gynecology Comment on above: Heartburn during pre gnancy in third trimester (Primary Dx); Family history of diabetes mellitus; History of macrosomia in infant in prior , currently ; Obesity in , antepartum; Encounter for supervision of high risk in third trimester, antepartum; 40 weeks gestation of ; Positive GBS test Start: 08-26-2024 End: 08-26-2024 ambulatory DUSTY GALEANO Facility:[facility] Start: 08-26-2024 End: 08-26-2024 Telephone encounter Valentina Weinstein RN Maternal Medicine Comment on above: Campus Administrative Assistant - O ther (PRAF) Question (OB Questio n) Start: 08-23-2024 End: 08-23-2024 ambulatory Valentina Yo MD Work Phone: OB/Gynecology Start: 08-23-2024 End: 08-23-2024 Patient encounter procedure Valentina Yo MD Work Phone: OB/Gynecology Comment on above: Another appointment Start: 08-23-2024 End: 08-23-2024 Telephone encounter Valentina Yo MD Work Phone: OB/Gynecology Comment on above: Induction of Labor Start: 08-22-2024 End: 08-22-2024 ambulatory NALLELY ROMERO Facility:[facility] Start: 08-22-2024 End: 08-22-2024 Patient encounter procedure Nallely Romero MD Work Phone: OB/Gynecology Comment on above: 39 weeks gestation o f (Primary Dx); Obesity affecting in third trimester, unspecified obesity type; Encounter for supervision of high risk in third trimester, antepartum Start: 08-16-2024 End: 08-16-2024 Patient encounter procedure Jackie Candelaria APRN.JUDY Work Phone: OB/Gynecology Comment on above: Encounter for superv ision of high risk in third trimester, antepartum (Primary Dx); 38 weeks gestation of ; Obesity affecting in third trimester, unspecified obesity type; Heartburn during in third trimester; Positive GBS test Start: 08-16-2024 End: 08-16-2024 ambulatory JACKIE CANDELARIA Facility:[facility] Start: 08-09-2024 End: 08-09-2024 Patient encounter procedure Valentina Yo MD Work Phone: OB/Gynecology Comment on above: Encounter for superv ision of high risk in third trimester, antepartum (Primary Dx); 37 weeks gestation of ; Obesity affecting in third trimester, unspecified obesity type Start: 08-09-2024 End: 08-09-2024 ambulatory [facility] Facility:[facility] Start: 08-02-2024 End: 08-02-2024 Patient encounter procedure Oneida Mattson APRN.JUDY Work Phone: OB/Gynecology Comment on above: Obesity affecting pr egnancy in third trimester, unspecified obesity type (Primary Dx); Heartburn during in third trimester; 36 weeks gestation of ; Positive GBS test Start: 08-02-2024 End: 08-02-2024 ambulatory [facility] Facility:[facility] Start: 07-29-2024 End: 07-29-2024 [facility] Facility:[facility] Start: 07-29-2024 End: 07-29-2024 Patient encounter procedure Forensic Structural Engineer [facility] Maternal [facility] Comment on above: Encounter for ultras ound to check growth (Primary Dx); Obesity affecting in third trimester, unspecified obesity type; 36 weeks gestation of Start: 07-26-2024 End: 07-26-2024 ambulatory [facility] Facility:[facility] Start: 07-26-2024 End: 07-26-2024 Patient encounter procedure Oneida Mattson APRN.SHAMIKAM Work Phone: OB/Gynecology Comment on above: 35 weeks gestation o f (Primary Dx); Obesity affecting in third trimester, unspecified obesity type; Heartburn during in third trimester Start: 07-16-2024 End: 07-16-2024 [facility] Facility:[facility] Start: 07-16-2024 End: 07-16-2024 Office outpatient visit 15 minutes Valentina Yo MD Work Phone: OB/Gynecology Comment on above: Obesity affecting pr egnancy in third trimester, unspecified obesity type (Primary Dx); Encounter for ultrasound to check growth; tachycardia affecting management of mother; 34 weeks gestation of Start: 07-03-2024 End: 07-05-2024 Telephone encounter Jackie Candelaria MICHELLE.JUDY Work Phone: OB/Gynecology Start: 06-28-2024 End: 06-28-2024 Office outpatient visit 15 minutes Valentina Yo MD Work Phone: OB/Gynecology Comment on above: Obesity affecting pr egnancy in third trimester, unspecified obesity type (Primary Dx); 31 weeks gestation of ; Need for vaccination Start: 06-28-2024 End: 06-28-2024 [facility] Facility:[facility] Start: 06-28-2024 End: 06-28-2024 Patient encounter procedure Forensic Structural Engineer [facility] Work Phone: OB/Gynecology Comment on above: Encounter for ultras ound to check growth (Primary Dx); Obesity affecting in third trimester, unspecified obesity type; 31 weeks gestation of Start: 06-14-2024 End: 06-14-2024 [facility] Facility:[facility] Start: 06-14-2024 End: 06-14-2024 Office outpatient visit 15 minutes Valentina Yo MD Work Phone: OB/Gynecology Comment on above: 29 weeks gestation o f (Primary Dx); Encounter for supervision of high risk in third trimester, antepartum; Obesity affecting in third trimester, unspecified obesity type Start: 05-31-2024 End: 05-31-2024 ambulatory Evie Montes DIANA Work Phone: OB/Gynecology Comment on above: Insurance Start: 05-31-2024 E-mail encounter fro m caregiver Evie Montes MICHELLE.NITZA Work Phone: OB/Gynecology Start: 05-31-2024 End: 05-31-2024 Patient encounter procedure Evie Montes MICHELLE.APPLIANCE TESTER Work Phone: OB/Gynecology Comment on above: Encounter for superv ision of high risk in third trimester, antepartum (Primary Dx); 27 weeks gestation of ; Obesity affecting in third trimester, unspecified obesity type; Chlamydia infection affecting in first trimester; Ovarian cyst, right; Nausea/vomiting in Start: 05-25-2024 Refill Jocelynn orellana MD Work Phone: OB/Gynecology Comment on above: Refill Request Start: 05-03-2024 End: 05-03-2024 Patient encounter procedure Jackie Bari APARICIOCN Work Phone: OB/Gynecology Comment on above: Encounter for superv ision of high risk in first trimester, antepartum (Primary Dx); 23 weeks gestation of ; Supervision of high risk in second trimester; Chlamydia infection affecting in first trimester; UTI (urinary tract infection) in , antepartum; Ovarian cyst, right; History of macrosomia in infant in prior , currently ; Nausea/vomiting in ; Heartburn during in second trimester; Obesity in , antepartum; Irritant dermatitis Start: 05-03-2024 End: 05-03-2024 ambulatory [facility] Facility:[facility] Start: 04-16-2024 End: 04-16-2024 ambulatory [facility] Facility:[facility] Start: 04-16-2024 End: 04-16-2024 Patient encounter procedure Sanaz SORIANO Work Phone: [facility] Comment on above: Fever, unspecified f ever cause (Primary Dx); Sore throat Start: 04-11-2024 End: 04-11-2024 ambulatory JOCELYNN ARAIZA Facility:[facility] Start: 04-11-2024 End: 04-11-2024 Patient encounter procedure [employer] 1 Forensic Structural Engineer [facility] Comment on above: Encounter for anatomic survey (Primary Dx); 18 weeks gestation of ; Obesity affecting in third trimester, unspecified obesity type Start: 04-09-2024 Telephone encounter Jocelynn Araiza MD Work Phone: OB/Gynecology Comment on above: Lab Orders Start: 03-29-2024 End: 03-29-2024 ambulatory JOCELYNN ARAIZA Facility:[facility] Start: 03-29-2024 End: 03-29-2024 Patient encounter procedure Jocelynn Araiza MD Work Phone: OB/Gynecology Comment on above: Supervision of high risk in second trimester (Primary Dx); 18 weeks gestation of ; Nausea/vomiting in ; Severe obesity due to excess calories affecting , antepartum (HCC); Heartburn during in second trimester Start: 03-19-2024 End: 03-19-2024 Emergency department patient visit ADILIA OHARA DO Facility:[facility] Start: 03-19-2024 End: 03-19-2024 Emergency department patient [facility] Start: 03-19-2024 Telephone encounter Nallely guzman MD Work Phone: OB/Gynecology Comment on above: Covid Positive Start: 02-15-2024 End: 02-15-2024 ambulatory EVIE MONTES Facility:[facility] Start: 02-15-2024 End: 02-15-2024 Patient encounter procedure Forensic Structural Engineer [facility] Work Phone: OB/Gynecology Comment on above: Encounter for (NT) n uchal translucency scan (Primary Dx); Encounter for supervision of high risk in first trimester, antepartum; 12 weeks gestation of 12 weeks gestation o f (Primary Dx); Encounter for supervision of high risk in first trimester, antepartum; Chlamydia infection affecting in first trimester Start: 01-25-2024 End: 01-25-2024 Patient encounter procedure Oneida Mattson APRN.CNM Work Phone: OB/Gynecology Comment on above: 9 weeks gestation of (Primary Dx); Chlamydia infection affecting in first trimester; Nausea/vomiting in Start: 01-25-2024 End: 01-25-2024 ambulatory [facility] Facility:[facility] Start: 01-18-2024 End: 01-18-2024 ambulatory [facility] Facility:[facility] Start: 01-18-2024 End: 01-18-2024 Patient encounter procedure Oneida Mattson APRN.CNM Work Phone: OB/Gynecology Comment on above: 8 weeks gestation of (Primary Dx); Chlamydia infection affecting in first trimester; Nausea/vomiting in Start: 01-17-2024 Telephone encounter Evie marquez APRN.CNP Work Phone: OB/Gynecology Comment on above: Results Start: 01-16-2024 End: 01-17-2024 Emergency department patient visit TARIQ YODER MD Facility: Start: 01-16-2024 End: 01-16-2024 Emergency department patient visit TARIQ YODER MD [facility] Start: 01-16-2024 Telephone encounter Jackie aguillon APRN.CNNeno Work Phone: OB/Gynecology Comment on above: Nausea & Vomiting Start: 01-15-2024 End: 01-15-2024 Patient encounter procedure Evie Montes APRN.CNP Work Phone: OB/Gynecology Comment on above: with uncer tain dates in first trimester (Primary Dx) Start: 01-15-2024 End: 01-15-2024 ambulatory [facility] Facility:[facility] Start: 01-15-2024 End: 01-15-2024 Patient encounter procedure Evie Montes APRN.CNP Work Phone: OB/Gynecology Comment on above: Encounter for superv ision of high risk in first trimester, antepartum (Primary Dx); 8 weeks gestation of ; with uncertain dates in first trimester; History of macrosomia in in prior , currently ; Ovarian cyst, right; Constipation during in first trimester; Nausea/vomiting in ; Family history of diabetes mellitus; Obesity affecting in first trimester, unspecified obesity type; Encounter for screening for malignant neoplasm of cervix Start: 2024 End: 2024 ambulatory DUSTY BRANARD FROYLAN Facility:[facility] Start: 2024 Telephone encounter Nallely guzman MD Work Phone: OB/Gynecology Comment on above: Early OB Bleeding Start: 01-01-2024 End: 01-01-2024 ambulatory DUSTY EVON FROYLAN Facility:[facility] Start: 12-29-2023 Telephone encounter Danae gr MD Work Phone: OB/Gynecology Comment on above: ER F/U Start: 12-29-2023 End: 12-29-2023 ambulatory DANAE ASHRAF Facility:[facility] Start: 12-05-2023 End: 12-05-2023 Emergency department patient visit BROOKE HSU MD Facility: Start: 11-09-2023 End: 11-09-2023 ambulatory KENNARD Brandon FROYLAN [facility] Start: 10-25-2022 End: 10-25-2022 Emergency department patient visit CLARE LIZ MD [facility] Start: 03-14-2018 End: 03-15-2018 Ambulatory [facility] Procedures Date Procedure Procedure Detail Performing Clinician Start: 08-28-2024 Urnls dip stick/tabl et rgnt non-auto w/o micrscp Valentina Yo MD Work Phone: Start: 08-26-2024 Urnls dip stick/tabl et rgnt non-auto w/o micrscp Jackie Candelaria APRN.CNM Work Phone: Start: 08-16-2024 Urnls dip stick/tabl et rgnt non-auto w/o micrscp Jackie Candelaria APRN.CNM Work Phone: Start: 08-09-2024 Urnls dip stick/tabl et rgnt non-auto w/o micrscp Valentina Yo MD Work Phone: Start: 08-02-2024 Urnls dip stick/tabl et rgnt non-auto w/o micrscp Oneida Mattson NUCLEAR WEAPONS MECHANICAL SPECIALIST.CNM Work Phone: Start: 07-29-2024 Us preg uterus after 1st trimest 11/06 gestation Valentina Yo MD Work Phone: Start: 07-26-2024 Urnls dip stick/tabl et rgnt non-auto w/o micrscp Oneida Plotdaphnie NUCLEAR WEAPONS MECHANICAL SPECIALIST.CNM Work Phone: Start: 07-16-2024 Urnls dip stick/tabl et rgnt non-auto w/o micrscp Valentina Yo MD Work Phone: Start: 06-28-2024 Us preg uterus after 1st trimest 11/06 gestation Evie Montes APRN.APPLIANCE TESTER Work Phone: Start: 04-16-2024 INFLUENZA A&B MOLECU LAR (POC) Sanaz Kaiser PA Work Phone: Start: 04-16-2024 STREP A MOLECULAR (POC) Sanaz Hayes Abnatanaelgg PA Work Phone: Start: 04-11-2024 Us preg uterus after 1st trimest 11/06 gestation Jocelynn Araiza MD Work Phone: Start: 02-15-2024 Antibody screen JOCELYNN ARAIZA Comment on above: Order Comment: Speci men Type: SWAB Ordering Facility: [facility] Address: [address] [place] [address] Performed By: #### [id number] #### [facility] CLIA [id number] [address] [place] [address] [place] [address] [place] Start: 02-15-2024 Us nuchal zamudio slucency 1st gestation Evie Montes APRN.APPLIANCE TESTER Work Phone: Start: 01-15-2024 Us uterus l imited 1/> fetuses Evie Montes MICHELLE.APPLIANCE TESTER Work Phone: Cholecystectomy CLARE Stokes MD Plan of Treatment Date Care Activity Detail Author Start: 06-28-2034 Urine microalbumin profile DTaP,Tdap,Td Vaccine (10 - Td or Tdap) [facility] Start: 01-14-2027 Screening for malign ant neoplasm of cervix [facility] Start: 11-16-2026 Urine microalbumin profile DTaP,Tdap,Td Vaccine (9 - Td or Tdap) [facility] Start: 05-31-2025 GC (Gonorrhea) Screening (18-24) GC (Gonorrhea) Screening (18-24) [facility] Start: 05-31-2025 Screening for Chlamy harish trachomatis Chlamydia Screening (18-24) [facility] Start: 05-03-2025 GC (Gonorrhea) Screening (18-24) GC (Gonorrhea) Screening (18-24) [facility] Start: 05-03-2025 Screening for Chlamy harish trachomatis Chlamydia Screening (18-24) [facility] Start: 01-14-2025 GC (Gonorrhea) Screening (18-24) GC (Gonorrhea) Screening (18-24) [facility] Start: 01-14-2025 Screening for Chlamy harish trachomatis Chlamydia Screening (18-24) [facility] Start: 08-28-2024 End: 08-28-2024 Patient encounter procedure OB/Gynecology Comment on above: OB/NST Start: 08-23-2024 End: 08-23-2024 Patient encounter procedure OB/Gynecology Comment on above: NST OB Routine Start: 08-23-2024 End: 08-23-2024 Patient encounter procedure 08/23/2024 11:10 AM EDT Routine Office Visit OB/Gynecology [address] [place] [id number] Valentina Yo MD [address] [place] [address] Routine OB OB/Gynecology Comment on above: Routine OB Start: 08-16-2024 End: 08-16-2024 Patient encounter procedure OB/Gynecology Comment on above: NST OB Rotuine w/ NST Start: 08-09-2024 End: 08-09-2024 Patient encounter procedure OB/Gynecology Comment on above: NST OB Routine w/ NST Start: 08-02-2024 End: 08-02-2024 Patient encounter procedure OB/Gynecology Comment on above: NST OB Routine w/ NST Start: 07-29-2024 End: 07-29-2024 Patient encounter procedure 07/29/2024 11:30 AM EDT Routine Office Visit Maternal Medicine [facility] [address] [place] [address] Growth Maternal Medicine [facility] Comment on above: Growth Start: 07-26-2024 End: 07-26-2024 Patient encounter procedure 07/26/2024 9:45 AM EDT Routine Office Visit OB/Gynecology [address] [place] [id number] Oneida Mattson APRN.[facility] [address] [place] [address] OB f/up OB/Gynecology Comment on above: OB f/up Start: 07-16-2024 End: 07-16-2025 OBSTETRIC ULTRASOUND WHI OBSTETRIC ULTRASOUND [facility] Anc Imaging Routine Obesity affecting in third trimester, unspecified obesity type Encounter for ultrasound to check growth Expected: 07/16/2024, Expires: 07/16/2025 [facility] Work Phone: Comment on above: Expected: 07/16/2024 , Expires: 07/16/2025 Start: 07-12-2024 End: 07-12-2024 Patient encounter procedure 07/12/2024 11:20 AM EDT Routine Office Visit OB/Gynecology [address] [place] [id number] Danae Ashraf MD [address] [place] [address] OB-needs to schedule repeat growth ultrasound OB/Gynecology Comment on above: OB-needs to schedule repeat growth ultrasound Start: 07-07-2024 Covid-19 Vaccine ( season) Covid-19 Vaccine () [facility] Start: 07-07-2024 Covid-19 Vaccine () Covid-19 Vaccine () [facility] Start: 07-07-2024 Influenza vaccination [facility] Start: 07-07-2024 RSV Vaccine (1 - Ris k 1-dose series) RSV Vaccine (1 - Risk 1-dose series) [facility] Start: 06-28-2024 End: 06-28-2024 Patient encounter procedure OB/Gynecology Comment on above: Growth US OB/Growth Start: 06-14-2024 End: 06-14-2024 Patient encounter procedure 06/14/2024 9:50 AM EDT Routine Office Visit OB/Gynecology [address] [place], [place] [id number] Valentina Yo MD [address] [place] [address] ob OB/Gynecology Comment on above: ob Start: 06-02-2024 End: 09-01-2024 CBC W Auto Differential panel - Blood COMPLETE BLOOD COUNT AND DIFFERENTIAL Lab Routine 23 weeks gestation of Supervision of high risk in second trimester Expected: 06/02/2024 (Approximate), Expires: 09/01/2024 [facility] Comment on above: Expected: 06/02/2024 (Approximate), Expires: 09/01/2024 Start: 06-02-2024 End: 09-01-2024 GESTATIONAL GLUCOSE SCREEN, 1-HOUR, 50 GRAM, NON-FASTING GESTATIONAL GLUCOSE SCREEN, 1-HOUR, 50 GRAM, NON-FASTING Lab Routine 23 weeks gestation of Supervision of high risk in second trimester Expected: 06/02/2024 (Approximate), Expires: 09/01/2024 [facility] Work Phone: Comment on above: Expected: 06/02/2024 (Approximate), Expires: 09/01/2024 Start: 06-02-2024 End: 09-01-2024 SYPHILIS TOTAL W/REFLEX SYPHILIS TOTAL W/REFLEX Lab Routine 23 weeks gestation of Supervision of high risk in second trimester Expected: 06/02/2024 (Approximate), Expires: 09/01/2024 [facility] Comment on above: Expected: 06/02/2024 (Approximate), Expires: 09/01/2024 Start: 05-31-2024 End: 05-31-2025 OBSTETRIC ULTRASOUND WHI OBSTETRIC ULTRASOUND [facility] Anc Imaging Routine Encounter for supervision of high risk in third trimester, antepartum 27 weeks gestation of Obesity affecting in third trimester, unspecified obesity type Expected: 05/31/2024, Expires: 05/31/2025 [facility] Work Phone: Comment on above: Expected: 05/31/2024 , Expires: 05/31/2025 Start: 05-31-2024 End: 05-31-2024 Patient encounter procedure OB/Gynecology Comment on above: OB OB-Needs GC/C Start: 05-31-2024 End: 05-31-2024 ambulatory 05/31/2024 8:45 AM EDT Results Only [facility] [address] [place] [address] Labs/1 hr Gluclose non-fasting [facility] Comment on above: Labs/1 hr Gluclose n on-fasting Start: 04-26-2024 End: 04-26-2024 Patient encounter procedure 04/26/2024 10:40 AM EDT Routine Office Visit OB/Gynecology [address] [place] [address] Jocelynn Araiza MD [address] [place] [address] OB OB/Gynecology Comment on above: OB Start: 04-11-2024 End: 04-11-2024 Patient encounter procedure 04/11/2024 3:00 PM EDT Routine Office Visit Maternal Medicine [address] [id number] Anatomy Maternal Medicine Comment on above: Anatomy Start: 04-02-2024 End: 04-02-2024 ambulatory 04/02/2024 11:15 AM EDT Results Only Bryce [facility] [address] [place] [address] [place] [facility] Start: 03-29-2024 End: 06-28-2024 ALPHA FETOPRO MATERNAL ALPHA FETOPRO MATERNAL Lab Routine 18 weeks gestation of Supervision of high risk in second trimester Expected: 03/29/2024, Expires: 06/28/2024 [facility] Comment on above: Expected: 03/29/2024 , Expires: 06/28/2024 Start: 03-29-2024 End: 03-29-2024 Patient encounter procedure 03/29/2024 9:50 AM EDT Routine Office Visit OB/Gynecology [address] [place] [address] Jocelynn Araiza MD [address] [place] [address] ob OB/Gynecology Comment on above: ob Start: 03-25-2024 End: 03-25-2025 OBSTETRIC ULTRASOUND WHI OBSTETRIC ULTRASOUND [facility]I Anc Imaging Routine 18 weeks gestation of Expected: 03/25/2024, Expires: 03/25/2025 [facility] Work Phone: Comment on above: Expected: 03/25/2024 , Expires: 03/25/2025 Start: 02-15-2024 End: 05-16-2024 Chromosome 21 trisomy [Presence] in Blood or Tissue by Cytogenetics [facility] Work Phone: Comment on above: Expected: 02/15/2024 , Expires: 05/16/2024 Start: 01-15-2024 End: 04-15-2024 CARRIER SCREEN, STANDARD CARRIER SCREEN, STANDARD Lab Routine Encounter for supervision of high risk in first trimester, antepartum 8 weeks gestation of Expected: 01/15/2024, Expires: 04/15/2024 [facility] Work Phone: Comment on above: Expected: 01/15/2024 , Expires: 04/15/2024 Start: 01-15-2024 End: 04-15-2024 CBC panel - Blood by Automated count CBC Lab Routine Encounter for supervision of high risk in first trimester, antepartum 8 weeks gestation of with uncertain dates in first trimester Expected: 01/15/2024, Expires: 04/15/2024 [facility] Work Phone: Comment on above: Expected: 01/15/2024 , Expires: 04/15/2024 Start: 01-15-2024 End: 04-15-2024 Hemoglobin A1c in Blood HGB A1C Lab Routine Encounter for supervision of high risk in first trimester, antepartum 8 weeks gestation of with uncertain dates in first trimester Expected: 01/15/2024, Expires: 04/15/2024 [facility] Work Phone: Comment on above: Expected: 01/15/2024 , Expires: 04/15/2024 Start: 01-15-2024 End: 04-15-2024 Hepatitis B virus surface Ag [Presence] in Serum HEP B SURF AG SCRN Lab Routine Encounter for supervision of high risk in first trimester, antepartum 8 weeks gestation of with uncertain dates in first trimester Expected: 01/15/2024, Expires: 04/15/2024 [facility] Work Phone: Comment on above: Expected: 01/15/2024 , Expires: 04/15/2024 Start: 01-15-2024 End: 04-15-2024 Hepatitis C virus Ab [Presence] in Serum HEPATITIS C ANTIBODY IA WITH CONFIRMATION Lab Routine Encounter for supervision of high risk in first trimester, antepartum 8 weeks gestation of with uncertain dates in first trimester Expected: 01/15/2024, Expires: 04/15/2024 [facility] Work Phone: Comment on above: Expected: 01/15/2024 , Expires: 04/15/2024 Start: 01-15-2024 End: 04-15-2024 HIV 1+2 Ab [Presence] in Serum or Plasma by Immunoassay HIV 1 2 COMBO(AG/AB),WITH REFLEX TO DIFFERENTIATION Lab Routine Encounter for supervision of high risk in first trimester, antepartum 8 weeks gestation of with uncertain dates in first trimester Expected: 01/15/2024, Expires: 04/15/2024 [facility] Work Phone: Comment on above: Expected: 01/15/2024 , Expires: 04/15/2024 Start: 01-15-2024 End: 01-14-2025 NUCHAL TRANSLUCENCY WHI NUCHAL TRANSLUCENCY WHI Anc Imaging Routine Encounter for supervision of high risk in first trimester, antepartum 8 weeks gestation of with uncertain dates in first trimester Expected: 01/15/2024, Expires: 01/14/2025 [facility] Work Phone: Comment on above: Expected: 01/15/2024 , Expires: 01/14/2025 Start: 01-15-2024 End: 04-15-2024 RUBELLA IGG AB RUBELLA IGG AB Lab Routine Encounter for supervision of high risk in first trimester, antepartum 8 weeks gestation of with uncertain dates in first trimester Expected: 01/15/2024, Expires: 04/15/2024 [facility] Work Phone: Comment on above: Expected: 01/15/2024 , Expires: 04/15/2024 Start: 01-15-2024 End: 04-15-2024 SYPHILIS TOTAL W/REFLEX SYPHILIS TOTAL W/REFLEX Lab Routine Encounter for supervision of high risk in first trimester, antepartum 8 weeks gestation of with uncertain dates in first trimester Expected: 01/15/2024, Expires: 04/15/2024 [facility] Work Phone: Comment on above: Expected: 01/15/2024 , Expires: 04/15/2024 Start: 01-15-2024 End: 04-15-2024 TYPE + SCREEN TYPE + SCREEN Blood Bank Routine Encounter for supervision of high risk in first trimester, antepartum 8 weeks gestation of with uncertain dates in first trimester Expected: 01/15/2024, Expires: 04/15/2024 [facility] Work Phone: Comment on above: Expected: 01/15/2024 , Expires: 04/15/2024 Start: 2024 Screening for malign ant neoplasm of cervix Pap Testing [facility] Start: 11-06-2023 Behavioral Health Screening Behavioral Health Screening [facility] Start: 11-06-2023 Depression Assessment Depression Ass essment [facility] Start: 07-07-2023 Covid-19 Vaccine ( season) Covid-19 Vaccine () [facility] Start: 07-07-2023 Influenza vaccination Influenza Vacc ine (#1) [facility] Start: 06-24-2021 Meningococcal B Vaccine: Consider Based On Risk (2 of 2 - Risk Bexsero 2-dose series) Meningococcal B Vaccine: Consider Based On Risk (2 of 2 - Risk Bexsero 2-dose series) [facility] Start: 2021 Anxiety Screening Anxiety Screening [facility] Start: 2021 Depression Screening Depression Scre ening [facility] Start: 2021 GC (Gonorrhea) Screening () GC (Gonorrhea) Screening (18-) [facility] Start: 2021 Screening for Chlamy harish trachomatis Chlamydia Screening () [facility] Start: 2017 Peds To Adult Transition Annual Assessment Peds To Adult Transition Annual Assessment [facility] Start: 2015 Peds To Adult Transition Initial Discussion Peds To Adult Transition Initial Discussion [facility] Start: 2003 Covid-19 Vaccine (#1) Covid-19 Vacci ne (#1) [facility] Bacteria identified in Urine by Culture URINE CULTURE Microbiology Routine Encounter for supervision of high risk in first trimester, antepartum 8 weeks gestation of with uncertain dates in first trimester 01/15/2024 11:12 AM EDT [facility] Work Phone: Bacteria identified in Urine by Culture URINE CULTURE Microbiology Routine Encounter for supervision of high risk in first trimester, antepartum 02/15/2024 10:34 AM EDT [facility] Work Phone: Chlamydia trachomatis+Neisseria gonorrhoeae DNA [Presence] in Unspecified specimen by LILIA with probe detection GONORRHEA/CHLAMYDIA NAAT Lab Routine Encounter for supervision of high risk in first trimester, antepartum 8 weeks gestation of with uncertain dates in first trimester 01/15/2024 11:12 AM [facility] Work Phone: Chlamydia trachomatis+Neisseria gonorrhoeae DNA [Presence] in Unspecified specimen by LILIA with probe detection GONORRHEA/CHLAMYDIA NAAT Lab Routine Chlamydia infection affecting in first trimester 05/03/2024 10:05 AM [facility] Chlamydia trachomatis+Neisseria gonorrhoeae DNA [Presence] in Unspecified specimen by LILIA with probe detection GONORRHEA/CHLAMYDIA NAAT Lab Routine Encounter for supervision of high risk in third trimester, antepartum 27 weeks gestation of Obesity affecting in third trimester, unspecified obesity type Chlamydia infection affecting in first trimester 05/31/2024 9:44 AM [facility] nonstress test NON-S TRESS TEST Procedures Routine 35 weeks gestation of Obesity affecting in third trimester, unspecified obesity type Ordered: 07/26/2024 [facility] Work Phone: Comment on above: Ordered: 07/26/2024 End: 09-03-2024 nonstress test NON-STRESS TEST Procedures Routine Obesity affecting in third trimester, unspecified obesity type Encounter for supervision of high risk in third trimester, antepartum 38 weeks gestation of Once per week for 3 Occurrences starting 08/16/2024 until 09/03/2024 [facility] Work Phone: Comment on above: Once per week for 3 Occurrences starting 08/16/2024 until 09/03/2024 PAP TEST PAP TEST Lab Dai silva Encounter for screening for malignant neoplasm of cervix 01/15/2024 12:15 PM EDT [facility] Work Phone: ROUTINE, GR OUP B STREP PCR ROUTINE, GROUP B STREP PCR Microbiology Routine 35 weeks gestation of 07/26/2024 10:28 AM [facility] URINE OB DIP B/O URINE OB DIP B/ O Lab Routine Obesity affecting in third trimester, unspecified obesity type 31 weeks gestation of Ordered: 06/28/2024 [facility] Work Phone: Comment on above: Ordered: 06/28/2024 End: 01-31-2025 US Pelvis transvaginal US FEMALE PELVIS TRANSVAG Radiology Routine Vaginal bleeding in , first trimester 1 Occurrences starting 2024 until 01/31/2025 [facility] Work Phone: Comment on above: 1 Occurrences starti ng 2024 until 01/31/2025 [facility] Immunizations Immunization Date Immunization Notes Care Provider Fa cility 06-28-2024 tetanus toxoid, redu francesco diphtheria toxoid, and acellular pertussis vaccine, adsorbed Valentina Yo MD Work Phone: [facility] 05-27-2021 hepatitis A vaccine, pediatric/adolescent dosage, 2 dose schedule Nallely Romero MD Work Phone: [facility] Work Phone: 05-27-2021 Human Papillomavirus 9-valent vaccine Nallely Romero MD Work Phone: [facility] Work Phone: 05-27-2021 meningococcal B vacc ine, recombinant, OMV, adjuvanted Nallely Romero MD Work Phone: [facility] Work Phone: 05-27-2021 meningococcal polysaccharide (groups A, C, Y and W-135) diphtheria toxoid conjugate vaccine (MCV4P) Nallely Romero MD Work Phone: [facility] Work Phone: 09-29-2017 Human Papillomavirus 9-valent vaccine Nallely Romero MD Work Phone: [facility] Work Phone: 09-29-2017 influenza, injectabl e, quadrivalent, preservative free Nallely Romero MD Work Phone: [facility] Work Phone: 09-29-2017 meningococcal polysaccharide (groups A, C, Y and W-135) diphtheria toxoid conjugate vaccine (MCV4P) Nallely Romero MD Work Phone: [facility] Work Phone: 09-29-2017 influenza virus vacc ine, unspecified formulation Nallely Romero MD Work Phone: [facility] 01-27-2017 measles, mumps and rubella virus vaccine Nallely Romero MD Work Phone: [facility] 11-16-2016 tetanus toxoid, redu francesco diphtheria toxoid, and acellular pertussis vaccine, adsorbed Nallely Romero MD Work Phone: [facility] 07-27-2016 influenza, injectabl e, quadrivalent, contains preservative Nallely Romero MD Work Phone: [facility] 08-24-2015 influenza virus vacc ine, live, attenuated, for intranasal use Nallely Romero MD Work Phone: [facility] 08-24-2015 tetanus toxoid, redu francesco diphtheria toxoid, and acellular pertussis vaccine, adsorbed Nallely Romero MD Work Phone: [facility] Work Phone: 12-02-2014 tetanus toxoid, redu francesco diphtheria toxoid, and acellular pertussis vaccine, adsorbed Nallely Romero MD Work Phone: [facility] 08-01-2014 influenza virus vacc ine, live, attenuated, for intranasal use Nallely Romero MD Work Phone: [facility] 11-30-2009 novel influenza-H1N1 -09, preservative-free, injectable Nallely Romero MD Work Phone: [facility] Work Phone: 10-28-2009 influenza, seasonal, injectable, preservative free Nallely Romero MD Work Phone: [facility] Work Phone: 10-28-2009 novel Influenza-H1N1 -09, live virus for nasal administration Nallely Romero MD Work Phone: [facility] 11-21-2008 influenza virus vacc ine, whole virus Nallely Romero MD Work Phone: [facility] Work Phone: 01-11-2008 diphtheria, tetanus toxoids and acellular pertussis vaccine, unspecified formulation Nallely Romero MD Work Phone: [facility] Work Phone: 01-11-2008 measles, mumps and rubella virus vaccine Nallely Roemro MD Work Phone: [facility] Work Phone: 01-11-2008 poliovirus vaccine, inactivated Nallely Romero MD Work Phone: [facility] Work Phone: 01-11-2008 varicella virus vaccine Nikita Romero MD Work Phone: [facility] Work Phone: 08-25-2004 influenza virus vacc ine, whole virus Nallely Romero MD Work Phone: [facility] 08-25-2004 pneumococcal conjuga te vaccine, 7 valent Nallely Romero MD Work Phone: [facility] 05-24-2004 diphtheria, tetanus toxoids and acellular pertussis vaccine, unspecified formulation Nallely Romero MD Work Phone: [facility] 05-24-2004 haemophilus influenz ae type b conjugate and Hepatitis B vaccine Nallely Romero MD Work Phone: [facility] 05-24-2004 haemophilus influenz ae type b vaccine, PRP-T conjugate Nallely Romero MD Work Phone: [facility] Work Phone: 05-24-2004 hepatitis B vaccine, pediatric or pediatric/adolescent dosage Nallely Romero MD Work Phone: [facility] Work Phone: 01-05-2004 hepatitis B vaccine, pediatric or pediatric/adolescent dosage Nallely Romero MD Work Phone: [facility] 01-05-2004 measles, mumps and rubella virus vaccine Nallely Romero MD Work Phone: [facility] 01-05-2004 varicella virus vaccine Nikita Romero MD Work Phone: [facility] 2003 diphtheria, tetanus toxoids and acellular pertussis vaccine Nallely Romero MD Work Phone: [facility] Work Phone: 2003 DTaP-hepatitis B and poliovirus vaccine Nallely Romero MD Work Phone: [facility] 2003 haemophilus influenz ae type b vaccine, PRP-T conjugate Nallely Romero MD Work Phone: [facility] Work Phone: 2003 hepatitis B vaccine, pediatric or pediatric/adolescent dosage Nallely Romero MD Work Phone: [facility] Work Phone: 2003 influenza virus vacc ine, whole virus Nallely Romero MD Work Phone: [facility] 2003 pneumococcal conjuga te vaccine, 7 valent Nallely Romero MD Work Phone: [facility] 2003 poliovirus vaccine, inactivated Nallely Romero MD Work Phone: [facility] Work Phone: 2003 diphtheria, tetanus toxoids and acellular pertussis vaccine, unspecified formulation Nallely Romero MD Work Phone: [facility] 2003 haemophilus influenz ae type b vaccine, PRP-T conjugate Nallely Romero MD Work Phone: [facility] Work Phone: 2003 pneumococcal conjuga te vaccine, 7 valent Nallely Romero MD Work Phone: [facility] 2003 poliovirus vaccine, inactivated Nallely Romero MD Work Phone: [facility] 2003 diphtheria, tetanus toxoids and acellular pertussis vaccine, unspecified formulation Nallely Romero MD Work Phone: [facility] 2003 haemophilus influenz ae type b vaccine, PRP-T conjugate Nallely Romero MD Work Phone: [facility] Work Phone: 2003 pneumococcal conjuga te vaccine, 7 valent Nallely Romero MD Work Phone: [facility] 2003 poliovirus vaccine, inactivated Nallely Romero MD Work Phone: [facility] Payers Date Payer Category Payer Private Health Insurance [employer] [place] [id number] 2024-Present [address] [address] [place] [address] Medicaid [id number] 2024 Unknown [id number] 2023 Medicaid [id number] 2023 Medicaid [id number] 2023 Self-pay 2022 Unknown [employer] PPO [id number] 2022-Present [phone] [address] [place] [address] PPO [id number] 2022 Unknown [id number] 2003 Unknown [id number] 2003 Unknown [id number] 2003 Unknown [id number] 2003 Unknown [id number] Social History Date Type Detail Facility Start: 10-09-2019 End: 07-26-2024 Tobacco smoking status Never smoked tobacco (finding) [facility] Sex Assigned At Sex [facility] End: 05-26-2016 History of tobacco use Cigarette Smoker [facility] Start: 01-01-2024 End: 07-26-2024 Tobacco use and exposure Smokeless tobacco non-user [facility] Start: 01-01-2024 End: 08-28-2024 Alcohol intake Current non-drinker of alcohol (finding) [facility] Start: 01-01-2024 End: 07-26-2024 History of Social function [facility] Start: 01-01-2024 End: 07-26-2024 Tobacco use panel [facility] National Score (1-100), lower number is lower risk Not on file [facility] Start: 2003 Sex Assigned At Not on file [facility] Start: 01-11-2024 Education 13 [facility] Start: 12-02-2023 [facility] NEGATED: Highlighted rowStart: NINF History of tobacco use Passive smoker [facility] Goals Date Patient Goal Desired Activity /State Personal health goal Functional Status Date Assessment Result Facility 03-19-2024 Functional Status Independent [facility] 03-19-2024 Functional Status Standard Safet y ID band on, Call device within reach, Bed in low position, Wheels locked, Upper/Half-Length side-rails up [facility] 01-16-2024 Functional Status Independent [facility] 01-16-2024 Functional Status Standard Safet y ID band on, Call device within reach, Bed in low position, Wheels locked, Upper/Half-Length side-rails up, Bedside Cart Locked, Visitor at bedside, Safety level maintained [facility] 10-25-2022 Functional Status Standard Safet y Call device within reach, Bed in low position, Wheels locked, Safety level maintained [facility] 10-25-2022 Functional Status [facility] Mental Status Date Assessment Result Facility 03-19-2024 Mental Status Orientation Oriented x 4 [facility] 03-19-2024 Mental Status [facility] 01-16-2024 Mental Status Orientation Oriented x 4 [facility] 01-16-2024 Mental Status [facility] 10-25-2022 Mental Status Orientation Oriented x 4 [facility] Clinical Notes 09-20-2016 to 08-28-2024 Valentina Yo MD - 08/28/2024 11:19 AM EDTPrenatal Quick Notes - Valentina Yo MD - 08/28/2024 11:18 AM EDTPrenatal Quick Notes - Valentina Yo MD - 08/28/2024 11:18 AM EDT Note Date & Type Note Facility 08-28-2024 History of Presen t illness Narrative NST SUMMARY PROVIDER ASSESSMENT AND INTERPRETATION Indications for NST: Obesity Baseline: 130 Variability: Moderate Accelerations: Present 15 X 15 Decelerations: None Interpretation: Category I SIGNATURE: Valentina Yo MD documented in this encounter [facility] 08-28-2024 Progress note Formatting of t his note might be different from the original. S: Luzmaria Hearn is a 19 year old female who presents at 08/24/2024, by Last Menstrual Period for a routine visit. Denies headache, visual changes, chest pain, shortness of breath, vaginal bleeding, leakage of fluid, or dysuria. Feeling well, no complaints. Good movement, O: See flow sheet Gen: No apparent distress Abd: Gravid, nontender Reactive NST IOL tomorrow ASSESSMENT/PLAN: 1. 40 weeks gestation of - ICD9: V22.2, ICD10: Z3A.40 (primary diagnosis) - URINE OB DIP B/O 2. Obesity in , antepartum - ICD9: 649.13, ICD10: O99.210 - URINE OB DIP B/O 3. Encounter for supervision of high risk in third trimester, antepartum - ICD9: V23.9, ICD10: O09.93 - URINE OB DIP B/O Valentina Yo MD [facility] 08-28-2024 Miscellaneous Notes S: Luzmaria Hearn is a 19 year old female who presents at 08/24/2024, by Last Menstrual Period for a routine visit. Denies headache, visual changes, chest pain, shortness of breath, vaginal bleeding, leakage of fluid, or dysuria. Feeling well, no complaints. Good movement, O: See flow sheet Gen: No apparent distress Abd: Gravid, nontender Reactive NST IOL tomorrow ASSESSMENT/PLAN: 1. 40 weeks gestation of - ICD9: V22.2, ICD10: Z3A.40 (primary diagnosis) - URINE OB DIP B/O 2. Obesity in , antepartum - ICD9: 649.13, ICD10: O99.210 - URINE OB DIP B/O 3. Encounter for supervision of high risk in third trimester, antepartum - ICD9: V23.9, ICD10: O09.93 - URINE OB DIP B/O Valentina Yo MD documented in this encounter [facility] 08-28-2024 Instructions Isha Lucio MA - 08/28/2024 10:31 AM EDT SEQUENTIAL SCREENINGS The [facility] offers sequential screenings for women who are interested in screenings for chromosomal abnormalities and certain defects during a . The sequential screen combines ultrasound and blood tests to determine the risk of chromosomal abnormalities, including Down's Syndrome (Trisomy 21) and Trisomy 18, as well as open neural tube defects including spina bifida. Ultrasound examination is performed between 11 weeks and 13 weeks gestational age. Blood tests are drawn after the ultrasound and again later in the between 15 and 21 weeks gestational age. Please let your physician know if you are interested in this testing. It will require an appointment with our library media technician. This is not an ultrasound performed by a physician in our office during a routine visit. SIGNS AND SYMPTOMS OF LABOR 1. Contractions every 10 minutes or more often 2. Clear, pink, or brownish fluid (water) leaking from vagina 3. Feeling that baby is pushing down, pressure 4. Low, dull backache 5. Cramps that feel like a period 6. Cramps with or without diarrhea If you notice any of the above symptoms, contact our office at [phone] and ask to speak with a nurse. After hours, you can call doctors registry at [phone] OR call [facility] at [phone] and ask to have the doctor distribution specialist paged. If you consider this an emergency, dial 9-1-1 or go to your nearest emergency department. NEED HELP? Are you dealing with a violent or abusive relationship? Are you a victim of rape or sexual assult? Call [facility] ([place]) 24 hour Crisis Hotline: 161.202.9833 or 433-101-5219. MANUAL Your Guide to a Healthy manual is now on-line. Visit [email or web address] [email or web address] to download your free copy documented in this encounter [facility] 08-26-2024 Note HNO ID: [id number] Author: JACKIE CANDELARIA APRN.CNM Service: ? Author Type: Machine Leather Trimmer Type: Progress Notes Filed: 08/26/2024 15:55 Note Text: NST SUMMARY PROVIDER ASSESSMENT AND INTERPRETATION Luzmaria Hearn is a 19 year old female, , who is at 40w2d with an JOSE J of 08/24/2024, by Last Menstrual Period dating method. Indications for NST: Decreased Movement Baseline: 125 Variability: Moderate Accelerations: Present 15 X 15 Decelerations: None Contractions: TOCO: None Interpretation: Reactive SIGNATURE: Jackie Candelaria APRN.CNM [facility] 08-26-2024 Progress note Formatting of t his note might be different from the original. NEENA-Decreased movement. NST reactive. IOL tomorrow at 0700. Jackie Candelaria APRN.CNM [facility] 08-26-2024 History of Presen t illness Narrative NST SUMMARY PROVIDER ASSESSMENT AND INTERPRETATION Luzmaria Hearn is a 19 year old female, , who is at 40w2d with an JOSE J of 08/24/2024, by Last Menstrual Period dating method. Indications for NST: Decreased Movement Baseline: 125 Variability: Moderate Accelerations: Present 15 X 15 Decelerations: None Contractions: TOCO: None Interpretation: Reactive SIGNATURE: Jackie Candelaria APRN.CNM documented in this encounter [facility] 08-26-2024 Miscellaneous Notes NEENA-Decreased movement. NST reactive. IOL tomorrow at 0700. Jackie Candelaria APRN.CNM documented in this encounter [facility] 08-26-2024 Perry Santiago MA - 08/26/2024 2:29 PM EDT SEQUENTIAL SCREENINGS The [facility] offers sequential screenings for women who are interested in screenings for chromosomal abnormalities and certain defects during a . The sequential screen combines ultrasound and blood tests to determine the risk of chromosomal abnormalities, including Down's Syndrome (Trisomy 21) and Trisomy 18, as well as open neural tube defects including spina bifida. Ultrasound examination is performed between 11 weeks and 13 weeks gestational age. Blood tests are drawn after the ultrasound and again later in the between 15 and 21 weeks gestational age. Please let your physician know if you are interested in this testing. It will require an appointment with our library media technician. This is not an ultrasound performed by a physician in our office during a routine visit. SIGNS AND SYMPTOMS OF LABOR 1. Contractions every 10 minutes or more often 2. Clear, pink, or brownish fluid (water) leaking from vagina 3. Feeling that baby is pushing down, pressure 4. Low, dull backache 5. Cramps that feel like a period 6. Cramps with or without diarrhea If you notice any of the above symptoms, contact our office at [phone] and ask to speak with a nurse. After hours, you can call doctors registry at [phone] OR call [facility] at [phone] and ask to have the doctor distribution specialist paged. If you consider this an emergency, dial [phone]- or go to your nearest emergency department. NEED HELP? Are you dealing with a violent or abusive relationship? Are you a victim of rape or sexual assult? Call [facility] ([facility] 24 hour Crisis Hotline: 789.135.2734 or 354-745-6690. MANUAL Your Guide to a Healthy manual is now on-line. Visit [email or web address] [email or web address] to download your free copy documented in this encounter [facility] 08-26-2024 Telephone encounter Note 2 more bloody shows since last call-last one looked like mucous plug Not cramping as much Contractions [id number], lasting 30-60 seconds long. Not as intense as last night Not getting 6-10 kick counts in one hr period, but is moving From 11am to now, Pt has only felt 2 or 3 times, not really kicking or being active. Per NEENA, okay to schedule Pt now for NST. Appt scheduled. Pt states she will be here in 5-10 minutes. Sparkle Estrada RN [facility] 08-26-2024 Miscellaneous Notes 2 more bloody shows since last call-last one looked like mucous plug Not cramping as much Contractions [id number], lasting 30-60 seconds long. Not as intense as last night Not getting 6-10 kick counts in one hr period, but is moving From 11am to now, Pt has only felt 2 or 3 times, not really kicking or being active. Per NEENA, okay to schedule Pt now for NST. Appt scheduled. Pt states she will be here in 5-10 minutes. Sparkle Estrada RN Please have patient schedule appt for 40w2d Calling c/o bloody show. Noticed each time with wiping since she left L&D last night (went in with contractions, but was discharged home). Blood is mixed with mucous and only noticing with wiping. Not needing to wear pad with it. Advised this can be normal especially after cervical exam like she had last night in L&D. She just woke up since she was at L&D so late and hasn't noticed movement yet. Advised to do kick counts and call if she does not get the 10 movements, or she notices regular contractions, bleeding or leaking fluid. She is wanting to know if there is a plan for her induction to be rescheduled? She was supposed to get it done on Monday, but was postponed all weekend because L&D was busy. Angela George RN documented in this encounter [facility] 08-26-2024 Telephone encounter Note Please have patient schedule appt for [facility] 08-26-2024 Telephone encounter Note 40w2d Calling c/o bloody show. Noticed each time with wiping since she left L&D last night (went in with contractions, but was discharged home). Blood is mixed with mucous and only noticing with wiping. Not needing to wear pad with it. Advised this can be normal especially after cervical exam like she had last night in L&D. She just woke up since she was at L&D so late and hasn't noticed movement yet. Advised to do kick counts and call if she does not get the 10 movements, or she notices regular contractions, bleeding or leaking fluid. She is wanting to know if there is a plan for her induction to be rescheduled? She was supposed to get it done on Monday, but was postponed all weekend because L&D was busy. Angela George RN [facility] 08-26-2024 Telephone encounter Note 1st and final risk assessment form submitted 08/26/2024. Valentina Weinstein RN [facility] 08-26-2024 Miscellaneous Notes 1st and final risk assessment form submitted 08/26/2024. Valentina Weinstein RN documented in this encounter [facility] 08-23-2024 Telephone encounter Note Patient called in and appointment scheduled for next week. Angela George RN [facility] 08-23-2024 Miscellaneous Notes Patient called in and appointment scheduled for next week. Angela George RN See today's phone note. Patient had called in to the office. Valentina Falcon RN documented in this encounter [facility] 08-23-2024 Telephone encounter Note My chart message sent to pt [facility] Work Phone: 08-23-2024 Miscellaneous Notes My chart message sent to pt Patient sent a Mychart message after calling in to the office with more questions. Valentina Falcon RN 39w6d Patient was scheduled this AM for an induction, but L&D is too full at this time. Patient was told to call the office about rescheduling. Valentina Falcon RN documented in this encounter [facility] 08-23-2024 Telephone encounter Note Patient sent a [employer] message after calling in to the office with more questions. Valentina Falcon RN [facility] 08-23-2024 Telephone encounter Note See today's phone note. Patient had called in to the office. Valentina Falcon RN [facility] 08-23-2024 Telephone encounter Note 39w6d Patient was scheduled this AM for an induction, but L&D is too full at this time. Patient was told to call the office about rescheduling. Valentina Falcon RN [facility] 08-22-2024 Note HNO ID: [id number] Author: NALLELY ROMERO MD Service: ? Author Type: Physician Type: Progress Notes Filed: 08/22/2024 16:26 Note Text: NST SUMMARY PROVIDER ASSESSMENT AND INTERPRETATION Luzmaria Hearn is a 19 year old female, , who is at 39w5d with an JOSE J of 08/24/2024, by Last Menstrual Period dating method. Indications for NST: Obesity Baseline: 120 Variability: Moderate Accelerations: Present 15 X 15 Decelerations: Variable Contractions: TOCO: Irregular Interpretation: Reactive SIGNATURE: Nallely Romero MD [facility] 08-22-2024 History of Presen t illness Narrative NST SUMMARY PROVIDER ASSESSMENT AND INTERPRETATION Luzmaria Hearn is a 19 year old female, , who is at 39w5d with an JOSE J of 08/24/2024, by Last Menstrual Period dating method. Indications for NST: Obesity Baseline: 120 Variability: Moderate Accelerations: Present 15 X 15 Decelerations: Variable Contractions: TOCO: Irregular Interpretation: Reactive SIGNATURE: Nallely Romero MD documented in this encounter [facility] 08-22-2024 Progress note Formatting of t his note might be different from the original. KJ - Patient seen urgently for pelvic pressure and decreased FM. She reports baby is still moving 6+ times per hour but just not as much as earlier in the . VB No. LOF No. CTXS No. Movement: present. Other c/o: No. Medication list reviewed. Physical Exam See Flow Sheet Gen: no accute distress, well appearing Abd: soft, nontender, gravid TAUS: vtx, KVNG=10 A/P 39w5d Estimated Date of Delivery: 08/24/24 Obesity - NST Discussed R/B/A and IOL scheduled for tomorrow at 7am. Informed consent signed. Labor precautions reviewed, Kick counts reviewed. Nallely Romero MD [facility] 08-22-2024 Miscellaneous Notes KJ - Patient seen urgently for pelvic pressure and decreased FM. She reports baby is still moving 6+ times per hour but just not as much as earlier in the . VB No. LOF No. CTXS No. Movement: present. Other c/o: No. Medication list reviewed. Physical Exam See Flow Sheet Gen: no accute distress, well appearing Abd: soft, nontender, gravid TAUS: vtx, KVNG=10 A/P 39w5d Estimated Date of Delivery: 08/24/24 Obesity - NST Discussed R/B/A and IOL scheduled for tomorrow at 7am. Informed consent signed. Labor precautions reviewed, Kick counts reviewed. Nallely Romero MD documented in this encounter [facility] 08-22-2024 Instructions Claudai Ovalles MA - 08/22/2024 3:00 PM EDT SEQUENTIAL SCREENINGS The [facility] offers sequential screenings for women who are interested in screenings for chromosomal abnormalities and certain defects during a . The sequential screen combines ultrasound and blood tests to determine the risk of chromosomal abnormalities, including Down's Syndrome (Trisomy 21) and Trisomy 18, as well as open neural tube defects including spina bifida. Ultrasound examination is performed between 11 weeks and 13 weeks gestational age. Blood tests are drawn after the ultrasound and again later in the between 15 and 21 weeks gestational age. Please let your physician know if you are interested in this testing. It will require an appointment with our library media technician. This is not an ultrasound performed by a physician in our office during a routine visit. SIGNS AND SYMPTOMS OF LABOR 1. Contractions every 10 minutes or more often 2. Clear, pink, or brownish fluid (water) leaking from vagina 3. Feeling that baby is pushing down, pressure 4. Low, dull backache 5. Cramps that feel like a period 6. Cramps with or without diarrhea If you notice any of the above symptoms, contact our office at [phone] and ask to speak with a nurse. After hours, you can call doctors registry at [phone] OR call [facility] at [phone] and ask to have the doctor distribution specialist paged. If you consider this an emergency, dial 9-1-8 or go to your nearest emergency department. NEED HELP? Are you dealing with a violent or abusive relationship? Are you a victim of rape or sexual assult? Call [facility] ([facility] 24 hour Crisis Hotline: 287.543.8918 or 892-078-3493. MANUAL Your Guide to a Healthy manual is now on-line. Visit [email or web address] to download your free copy documented in this encounter [facility] 08-16-2024 Note HNO ID: [id number] Author: JACKIE CANDELARIA APRN.CNM Service: ? Author Type: Machine Leather Trimmer Type: Progress Notes Filed: 08/16/2024 14:24 Note Text: NST SUMMARY PROVIDER ASSESSMENT AND INTERPRETATION Luzmaria Hearn is a 19 year old female, , who is at 38w6d with an JOSE J of 08/24/2024, by Last Menstrual Period dating method. Indications for NST: Obesity Baseline: 155 Variability: Moderate Accelerations: Present 15 X 15 Decelerations: None Contractions: TOCO: None Interpretation: Reactive SIGNATURE: Jackie Candelaria APRN.CNM [facility] 08-16-2024 History of Presen t illness Narrative NST SUMMARY PROVIDER ASSESSMENT AND INTERPRETATION Luzmaria Hearn is a 19 year old female, , who is at 38w6d with an JOSE J of 08/24/2024, by Last Menstrual Period dating method. Indications for NST: Obesity Baseline: 155 Variability: Moderate Accelerations: Present 15 X 15 Decelerations: None Contractions: TOCO: None Interpretation: Reactive SIGNATURE: Jackie Candelaria APRN.CNM documented in this encounter [facility] 08-16-2024 Progress note Formatting of t his note might be different from the original. NEENA-S: Luzmaria Hearn is a 19 year old female who presents at 38w6d with JOSE J:08/24/2024, by Last Menstrual Period for a routine visit. Denies headache, visual changes, chest pain, shortness of breath, vaginal bleeding, leakage of fluid, or dysuria. Increased pelvic pressure and pain. No contractions. O: See flow sheet Gen: No apparent distress Abd: Gravid, nontender NST reactive ASSESSMENT/PLAN: 1. Encounter for supervision of high risk in third trimester, antepartum -Continue PNV and ASA 2. 38 weeks gestation of 3. Obesity affecting in third trimester, unspecified obesity type -Prgravid BMI 38. Growth US at 36wk and NSTs weekly -NST reactive today 4. Heartburn during in third trimester -Continue protonix 5. Positive GBS test -PTL precautions reviewed and when to call - RTO in 1 week Jackie Candelaria APRN.CNM [facility] 08-16-2024 Miscellaneous Notes JAIRS: Luzmaria Hearn is a 19 year old female who presents at 38w6d with JOSE J:08/24/2024, by Last Menstrual Period for a routine visit. Denies headache, visual changes, chest pain, shortness of breath, vaginal bleeding, leakage of fluid, or dysuria. Increased pelvic pressure and pain. No contractions. O: See flow sheet Gen: No apparent distress Abd: Gravid, nontender NST reactive ASSESSMENT/PLAN: 1. Encounter for supervision of high risk in third trimester, antepartum -Continue PNV and ASA 2. 38 weeks gestation of 3. Obesity affecting in third trimester, unspecified obesity type -Prgravid BMI 38. Growth US at 36wk and NSTs weekly -NST reactive today 4. Heartburn during in third trimester -Continue protonix 5. Positive GBS test -PTL precautions reviewed and when to call - RTO in 1 week Jackie Candelaria APRN.CNM documented in this encounter [facility] 08-16-2024 Perry Santiago MA - 08/16/2024 10:34 AM EDT SEQUENTIAL SCREENINGS The [facility] offers sequential screenings for women who are interested in screenings for chromosomal abnormalities and certain defects during a . The sequential screen combines ultrasound and blood tests to determine the risk of chromosomal abnormalities, including Down's Syndrome (Trisomy 21) and Trisomy 18, as well as open neural tube defects including spina bifida. Ultrasound examination is performed between 11 weeks and 13 weeks gestational age. Blood tests are drawn after the ultrasound and again later in the between 15 and 21 weeks gestational age. Please let your physician know if you are interested in this testing. It will require an appointment with our library media technician. This is not an ultrasound performed by a physician in our office during a routine visit. SIGNS AND SYMPTOMS OF LABOR 1. Contractions every 10 minutes or more often 2. Clear, pink, or brownish fluid (water) leaking from vagina 3. Feeling that baby is pushing down, pressure 4. Low, dull backache 5. Cramps that feel like a period 6. Cramps with or without diarrhea If you notice any of the above symptoms, contact our office at [phone] and ask to speak with a nurse. After hours, you can call doctors registry at [phone] OR call [facility] at [phone] and ask to have the doctor distribution specialist paged. If you consider this an emergency, dial 07-07- or go to your nearest emergency department. NEED HELP? Are you dealing with a violent or abusive relationship? Are you a victim of rape or sexual assult? Call [facility] ([place]) 24 hour Crisis Hotline: 546.342.6858 or 560-643-7432. MANUAL Your Guide to a Healthy manual is now on-line. Visit [email or web address] to download your free copy documented in this encounter [facility] 08-09-2024 Note HNO ID: [id number] Author: VALENTINA YO MD Service: ? Author Type: Physician Type: Progress Notes Filed: 08/09/2024 12:56 Note Text: NST SUMMARY PROVIDER ASSESSMENT AND INTERPRETATION Indications for NST: Obesity Baseline: 135 Variability: Moderate Accelerations: Present 15 X 15 Decelerations: None Interpretation: Category I SIGNATURE: Valentina Yo MD [facility] 08-09-2024 Progress note Formatting of t his note might be different from the original. S: Luzmaria Hearn is a 19 year old female who presents at 08/24/2024, by Last Menstrual Period for a routine visit. Denies headache, visual changes, chest pain, shortness of breath, vaginal bleeding, leakage of fluid, or dysuria. Feeling well, no complaints. Good movement, No contractions O: See flow sheet Gen: No apparent distress Abd: Gravid, nontender Reactive NST GBS + ASSESSMENT/PLAN: 1. Encounter for supervision of high risk in third trimester, antepartum - ICD9: V23.9, ICD10: O09.93 (primary diagnosis) 2. 37 weeks gestation of - ICD9: V22.2, ICD10: Z3A.37 - URINE OB DIP B/O 3. Obesity affecting in third trimester, unspecified obesity type - ICD9: 649.13, ICD10: O99.213 NSts Valentina Yo MD [facility] 08-09-2024 History of Presen t illness Narrative NST SUMMARY PROVIDER ASSESSMENT AND INTERPRETATION Indications for NST: Obesity Baseline: 135 Variability: Moderate Accelerations: Present 15 X 15 Decelerations: None Interpretation: Category I SIGNATURE: Valentina Yo MD documented in this encounter [facility] 08-09-2024 Miscellaneous Notes S: Luzmaria Hearn is a 19 year old female who presents at 08/24/2024, by Last Menstrual Period for a routine visit. Denies headache, visual changes, chest pain, shortness of breath, vaginal bleeding, leakage of fluid, or dysuria. Feeling well, no complaints. Good movement, No contractions O: See flow sheet Gen: No apparent distress Abd: Gravid, nontender Reactive NST GBS + ASSESSMENT/PLAN: 1. Encounter for supervision of high risk in third trimester, antepartum - ICD9: V23.9, ICD10: O09.93 (primary diagnosis) 2. 37 weeks gestation of - ICD9: V22.2, ICD10: Z3A.37 - URINE OB DIP B/O 3. Obesity affecting in third trimester, unspecified obesity type - ICD9: 649.13, ICD10: O99.213 NSts Valentina Yo MD documented in this encounter [facility] 08-09-2024 Instructions Catherine Thompson MA - 08/09/2024 9:48 AM EDT SEQUENTIAL SCREENINGS The [facility] offers sequential screenings for women who are interested in screenings for chromosomal abnormalities and certain defects during a . The sequential screen combines ultrasound and blood tests to determine the risk of chromosomal abnormalities, including Down's Syndrome (Trisomy 21) and Trisomy 18, as well as open neural tube defects including spina bifida. Ultrasound examination is performed between 11 weeks and 13 weeks gestational age. Blood tests are drawn after the ultrasound and again later in the between 15 and 21 weeks gestational age. Please let your physician know if you are interested in this testing. It will require an appointment with our library media technician. This is not an ultrasound performed by a physician in our office during a routine visit. SIGNS AND SYMPTOMS OF LABOR 1. Contractions every 10 minutes or more often 2. Clear, pink, or brownish fluid (water) leaking from vagina 3. Feeling that baby is pushing down, pressure 4. Low, dull backache 5. Cramps that feel like a period 6. Cramps with or without diarrhea If you notice any of the above symptoms, contact our office at [phone] and ask to speak with a nurse. After hours, you can call doctors registry at [phone] OR call [facility] at [phone] and ask to have the doctor distribution specialist paged. If you consider this an emergency, dial 9-4-5 or go to your nearest emergency department. NEED HELP? Are you dealing with a violent or abusive relationship? Are you a victim of rape or sexual assult? Call [facility] ([place]) 24 hour Crisis Hotline: 495.977.5035 or 443-381-9588. MANUAL Your Guide to a Healthy manual is now on-line. Visit [email or web address] to download your free copy documented in this encounter [facility] 08-02-2024 Note HNO ID: [id number] Author: ONEIDA MATTSON APRN.JUDY Service: ? Author Type: Machine Leather Trimmer Type: Progress Notes Filed: 08/02/2024 11:22 Note Text: NST SUMMARY PROVIDER ASSESSMENT AND INTERPRETATION Luzmaria Hearn is a 19 year old female, , who is at 36w6d with an JOSE J of 08/24/2024, by Last Menstrual Period dating method. Indications for NST: Obesity Baseline: 140 Variability: Moderate Accelerations: Present 15 X 15 Decelerations: None Contractions: TOCO: None Interpretation: Reactive SIGNATURE: Oneida Mattson APRN.CNM [facility] 08-02-2024 History of Presen t illness Narrative NST SUMMARY PROVIDER ASSESSMENT AND INTERPRETATION Luzmaria Hearn is a 19 year old female, , who is at 36w6d with an JOSE J of 08/24/2024, by Last Menstrual Period dating method. Indications for NST: Obesity Baseline: 140 Variability: Moderate Accelerations: Present 15 X 15 Decelerations: None Contractions: TOCO: None Interpretation: Reactive SIGNATURE: Oneida Mattson APRN.CNM documented in this encounter [facility] 08-02-2024 Progress note Formatting of t his note might be different from the original. S: Luzmaria Hearn is a 19 year old female who presents at 36.6 weeks gestation for a routine visit and NST. Positive movement. Denies any cramps or contractions. Denies headache, visual changes, chest pain, shortness of breath, vaginal bleeding, leakage of fluid, or dysuria. Feeling well, no complaints. O: See flow sheet Gen: No apparent distress Abd: Gravid, non tender ASSESSMENT/PLAN: 1. Obesity affecting in third trimester, unspecified obesity type - ICD9: 649.13, ICD10: O99.213 (primary diagnosis) 2. Heartburn during in third trimester - ICD9: 646.83, 787.1, ICD10: O26.893, R12 3. 36 weeks gestation of - ICD9: V22.2, ICD10: Z3A.36 4. Positive GBS test - ICD9: 041.02, ICD10: B95.1 - NST reactive - Continue Protonix 40 mg PO daily- helping with acid reflux - GBS positive- discussed receiving PCN IV during labor and delivery - PTL precautions reviewed and when to call office - RTO 1 week for NST / ALISE Mattson APRN.CNM [facility] 08-02-2024 Miscellaneous Notes S: uLzmaria Hearn is a 19 year old female who presents at 36.6 weeks gestation for a routine visit and NST. Positive movement. Denies any cramps or contractions. Denies headache, visual changes, chest pain, shortness of breath, vaginal bleeding, leakage of fluid, or dysuria. Feeling well, no complaints. O: See flow sheet Gen: No apparent distress Abd: Gravid, non tender ASSESSMENT/PLAN: 1. Obesity affecting in third trimester, unspecified obesity type - ICD9: 649.13, ICD10: O99.213 (primary diagnosis) 2. Heartburn during in third trimester - ICD9: 646.83, 787.1, ICD10: O26.893, R12 3. 36 weeks gestation of - ICD9: V22.2, ICD10: Z3A.36 4. Positive GBS test - ICD9: 041.02, ICD10: B95.1 - NST reactive - Continue Protonix 40 mg PO daily- helping with acid reflux - GBS positive- discussed receiving PCN IV during labor and delivery - PTL precautions reviewed and when to call office - RTO 1 week for AJ / ALISE Mattson APRN.CNM documented in this encounter [facility] 08-02-2024 Instructions Perry Arana MA - 08/02/2024 10:18 AM EDT SEQUENTIAL SCREENINGS The [facility] offers sequential screenings for women who are interested in screenings for chromosomal abnormalities and certain defects during a . The sequential screen combines ultrasound and blood tests to determine the risk of chromosomal abnormalities, including Down's Syndrome (Trisomy 21) and Trisomy 18, as well as open neural tube defects including spina bifida. Ultrasound examination is performed between 11 weeks and 13 weeks gestational age. Blood tests are drawn after the ultrasound and again later in the between 15 and 21 weeks gestational age. Please let your physician know if you are interested in this testing. It will require an appointment with our library media technician. This is not an ultrasound performed by a physician in our office during a routine visit. SIGNS AND SYMPTOMS OF LABOR 1. Contractions every 10 minutes or more often 2. Clear, pink, or brownish fluid (water) leaking from vagina 3. Feeling that baby is pushing down, pressure 4. Low, dull backache 5. Cramps that feel like a period 6. Cramps with or without diarrhea If you notice any of the above symptoms, contact our office at [phone] and ask to speak with a nurse. After hours, you can call [facility] registry at [phone] OR call [facility] at [phone] and ask to have the doctor distribution specialist paged. If you consider this an emergency, dial 5-1-4 or go to your nearest emergency department. NEED HELP? Are you dealing with a violent or abusive relationship? Are you a victim of rape or sexual assult? Call [facility] ([place]) 24 hour Crisis Hotline: 838.949.7841 or 856-387-4709. MANUAL Your Guide to a Healthy manual is now on-line. Visit [email or web address] to download your free copy documented in this encounter [facility] 07-29-2024 Note Indication Evaluation of growth; Maternal obesity, BMI >30; Right ovarian cyst Impression - Single, live, intrauterine . - The biometry is consistent with the assigned gestational dating. - The EFW is 2726 g, at the 35%. AC is at the 39%. - Amniotic fluid volume is normal amount with an MVP of 4.8 cm and KVNG of 16.7 cm. - The placenta is posterior. - No malformations visualized on a limited survey as detailed below. Maternal Structures: Right Ovary: Size 119 mm x 77 mm x 66 mm. Cyst(s): Size 63 mm x 65 mm x 73 mm. Simple cyst with echogenic focus Recommendations - Weekly surveillance - Additional follow up as clinically indicated. Maternal Assessment Height 165 cm Height (ft) 5 ft Height (in) 5 in Physical Exam Initial weight (lb) 239 lb Initial BMI 39.77 kg/m Method Transabdominal ultrasound examination Krueger . Number of fetuses: 1 Dating LMP on: 11/18/2023 GA by LMP 36 w + 2 d JOSE J by LMP: 08/24/2024 GA by prior assessment 36 w + 2 d JOSE J by prior assessment: 08/24/2024 Ultrasound examination on: 07/29/2024 GA by U/S based upon: AC, BPD, Femur, HC GA by U/S 36 w + 2 d JOSE J by U/S: 08/24/2024 Assigned: based on stated JOSE J, selected on 06/28/2024 Assigned GA 36 w + 2 d Assigned JOSE J: 08/24/2024 General Evaluation Cardiac activity present. FHR 125 bpm. movements: present. Presentation: cephalic Placenta: Placental site: posterior Umbilical cord: Cord vessels: 3 vessel cord. Insertion site: normal insertion Amniotic fluid: Amount of AF: normal amount. MVP 4.8 cm. KVNG 16.7 cm. Q1 3.6 cm, Q2 4.5 cm, Q3 4.8 cm, Q4 3.8 cm Growth Overview Exam date GA BPD (mm) HC (mm) AC (mm) FL (mm) HL (mm) EFW (g) 04/11/2024 20w 5d 48.5 47% 182.7 48% 168.9 80% 32.2 38% 31 32% 392 59% 06/28/2024 31w 6d 88.7 >99% 324.4 97% 279.8 54% 57.8 17% 1926 50% 07/29/2024 36w 2d 93.1 92% 332.8 67% 315.9 39% 67.2 30% 2726 35% Biometry Standard BPD 93.1 mm 37w 6d 92% Hadlock OFD 116.2 mm -/- 62% Nicolaides HC 332.8 mm 37w 4d 67% Berta AC 315.9 mm 35w 4d 39% Hadlock Femur 67.2 mm 34w 2d 30% Berta EFW 2,726 g 35w 4d 35% Hadlock EFW (lb) 6 lb EFW (oz) 0 oz EFW by: Hadlock (HC-AC-FL) Extended Nocturnist Physician 9.2 mm Extremities / Bony Struc FL / HC 0.20 Other Structures FHR 125 bpm Anatomy Lateral ventricles: normal Cavum septi pellucidi: normal Cerebellum: normal Cisterna magna: normal Profile: normal 4-chamber view: normal RVOT view: normal LVOT view: suboptimal 3-vessel view: suboptimal Heart / Thorax Situs: situs solitus (normal) Diaphragm: normal Stomach: normal Kidneys: normal Bladder: normal sex: male Wants to know sex: yes Maternal Structures Ovaries / Tubes / Adnexa Rt ovary: Visualized Rt ovary D1 119 mm Rt ovary D2 77 mm Rt ovary D3 66 mm Rt ovary Vol 316.2 cm Rt ovarian cyst(s): Cysts identified Rt ovarian cyst D1 63 mm Rt ovarian cyst D2 65 mm Rt ovarian cyst D3 73 mm Rt ovarian cyst mean 67.0 mm Rt ovarian cyst vol 156.522 cm Rt ovarian cyst findings: Simple cyst with echogenic foci in the middle Performed By: Luzmaria Medellin. RDMS Read By: Kwame Rosas M.D. [facility] 07-26-2024 Progress note Formatting of t his note might be different from the original. S: Luzmaria Hearn is a 19 year old female who presents at 08/24/2024, by Last Menstrual Period for a routine visit. Denies headache, visual changes, chest pain, shortness of breath, vaginal bleeding, leakage of fluid, or dysuria. Feeling well, no complaints. O: See flow sheet Gen: No apparent distress Abd: Gravid, nontender TAUS confirms vertex position ASSESSMENT/PLAN: 1. 35 weeks gestation of - ICD9: V22.2, ICD10: Z3A.35 (primary diagnosis) 2. Obesity affecting in third trimester, unspecified obesity type - ICD9: 649.13, ICD10: O99.213 3. Heartburn during in third trimester - ICD9: 646.83, 787.1, ICD10: O26.893, R12 - D/C Pepcid - RX. Protonix 40 mg XR PO daily - ROUTINE, GROUP B STREP PCR - URINE OB DIP B/O - Pregravid BMI 38 - NON-STRESS TEST- weekly - Repeat Growth US next week JUNO Saucedo APRN.CNM P: 1) PTL precautions reviewed and when to call 2) RTO [facility] 07-26-2024 Miscellaneous Notes S: Luzmaria Hearn is a 19 year old female who presents at 08/24/2024, by Last Menstrual Period for a routine visit. Denies headache, visual changes, chest pain, shortness of breath, vaginal bleeding, leakage of fluid, or dysuria. Feeling well, no complaints. O: See flow sheet Gen: No apparent distress Abd: Gravid, nontender TAUS confirms vertex position ASSESSMENT/PLAN: 1. 35 weeks gestation of - ICD9: V22.2, ICD10: Z3A.35 (primary diagnosis) 2. Obesity affecting in third trimester, unspecified obesity type - ICD9: 649.13, ICD10: O99.213 3. Heartburn during in third trimester - ICD9: 646.83, 787.1, ICD10: O26.893, R12 - D/C Pepcid - RX. Protonix 40 mg XR PO daily - ROUTINE, GROUP B STREP PCR - URINE OB DIP B/O - Pregravid BMI 38 - NON-STRESS TEST- weekly - Repeat Growth US next week JUNO Saucedo APRN.CNM P: 1) PTL precautions reviewed and when to call 2) RTO documented in this encounter [facility] 07-26-2024 Instructions Claudia Ovalles MA - 07/26/2024 9:56 AM EDT SEQUENTIAL SCREENINGS [facility] offers sequential screenings for women who are interested in screenings for chromosomal abnormalities and certain defects during a . The sequential screen combines ultrasound and blood tests to determine the risk of chromosomal abnormalities, including Down's Syndrome (Trisomy 21) and Trisomy 18, as well as open neural tube defects including spina bifida. Ultrasound examination is performed between 11 weeks and 13 weeks gestational age. Blood tests are drawn after the ultrasound and again later in the between 15 and 21 weeks gestational age. Please let your physician know if you are interested in this testing. It will require an appointment with our library media technician. This is not an ultrasound performed by a physician in our office during a routine visit. SIGNS AND SYMPTOMS OF LABOR 1. Contractions every 10 minutes or more often 2. Clear, pink, or brownish fluid (water) leaking from vagina 3. Feeling that baby is pushing down, pressure 4. Low, dull backache 5. Cramps that feel like a period 6. Cramps with or without diarrhea If you notice any of the above symptoms, contact our office at [phone] and ask to speak with a nurse. After hours, you can call doctors registry at [phone] OR call [facility] at [phone] and ask to have the doctor distribution specialist paged. If you consider this an emergency, dial 9-1-9 or go to your nearest emergency department. NEED HELP? Are you dealing with a violent or abusive relationship? Are you a victim of rape or sexual assult? Call [facility] ([place]) 24 hour Crisis Hotline: 336.812.7273 or 724-242-8330. MANUAL Your Guide to a Healthy manual is now on-line. Visit [email or web address] to download your free copy documented in this encounter [facility] 07-16-2024 Note HNO ID: [id number] Author: VALENTINA YO MD Service: ? Author Type: Physician Type: Progress Notes Filed: 07/16/2024 12:50 Note Text: NST SUMMARY PROVIDER ASSESSMENT AND INTERPRETATION Indications for NST: Other: tachycardia Baseline: 140 Variability: Moderate Accelerations: Present 15 X 15 Decelerations: None Interpretation: Category I SIGNATURE: Valentina Yo MD [facility] 07-16-2024 History of Presen t illness Narrative NST SUMMARY PROVIDER ASSESSMENT AND INTERPRETATION Indications for NST: Other: tachycardia Baseline: 140 Variability: Moderate Accelerations: Present 15 X 15 Decelerations: None Interpretation: Category I SIGNATURE: Valentina Yo MD documented in this encounter [facility] 07-16-2024 Progress note Formatting of t his note might be different from the original. S: Luzmaria Hearn is a 19 year old female who presents at 08/24/2024, by Last Menstrual Period for a routine visit. Denies headache, visual changes, chest pain, shortness of breath, vaginal bleeding, leakage of fluid, or dysuria. Feeling well, no complaints. Good movement, No contractions O: See flow sheet Gen: No apparent distress Abd: Gravid, nontender FHR sustained in 180 for over a minute on doppler. Place on NST FHR 140s. reasctive ASSESSMENT/PLAN: 1. Obesity affecting in third trimester, unspecified obesity type - ICD9: 649.13, ICD10: O99.213 (primary diagnosis) Growth Us in 2 weeks - URINE OB DIP B/O - OBSTETRIC ULTRASOUND WHI 2. Encounter for ultrasound to check growth - ICD9: V28.3, ICD10: Z36.89 Us to be scheduled - OBSTETRIC ULTRASOUND WHI 3. tachycardia affecting management of mother - ICD9: 659.70, ICD10: O36.8390 Reactive NST FHR 145 Valentina Yo MD [facility] 07-16-2024 Miscellaneous Notes S: Luzmaria Hearn is a 19 year old female who presents at 08/24/2024, by Last Menstrual Period for a routine visit. Denies headache, visual changes, chest pain, shortness of breath, vaginal bleeding, leakage of fluid, or dysuria. Feeling well, no complaints. Good movement, No contractions O: See flow sheet Gen: No apparent distress Abd: Gravid, nontender FHR sustained in 180 for over a minute on doppler. Place on NST FHR 140s. reasctive ASSESSMENT/PLAN: 1. Obesity affecting in third trimester, unspecified obesity type - ICD9: 649.13, ICD10: O99.213 (primary diagnosis) Growth Us in 2 weeks - URINE OB DIP B/O - OBSTETRIC ULTRASOUND WHI 2. Encounter for ultrasound to check growth - ICD9: V28.3, ICD10: Z36.89 Us to be scheduled - OBSTETRIC ULTRASOUND WHI 3. tachycardia affecting management of mother - ICD9: 659.70, ICD10: O36.8390 Reactive NST FHR 145 Valentina Yo MD documented in this encounter [facility] 07-16-2024 Instructions Tere Sanchez LPN - 07/16/2024 11:15 AM EDT SEQUENTIAL SCREENINGS [facility] offers sequential screenings for women who are interested in screenings for chromosomal abnormalities and certain defects during a . The sequential screen combines ultrasound and blood tests to determine the risk of chromosomal abnormalities, including Down's Syndrome (Trisomy 21) and Trisomy 18, as well as open neural tube defects including spina bifida. Ultrasound examination is performed between 11 weeks and 13 weeks gestational age. Blood tests are drawn after the ultrasound and again later in the between 15 and 21 weeks gestational age. Please let your physician know if you are interested in this testing. It will require an appointment with our library media technician. This is not an ultrasound performed by a physician in our office during a routine visit. SIGNS AND SYMPTOMS OF LABOR 1. Contractions every 10 minutes or more often 2. Clear, pink, or brownish fluid (water) leaking from vagina 3. Feeling that baby is pushing down, pressure 4. Low, dull backache 5. Cramps that feel like a period 6. Cramps with or without diarrhea If you notice any of the above symptoms, contact our office at [phone] and ask to speak with a nurse. After hours, you can call doctors registry at [phone] OR call [facility] at [phone] and ask to have the doctor distribution specialist paged. If you consider this an emergency, dial [phone]- or go to your nearest emergency department. NEED HELP? Are you dealing with a violent or abusive relationship? Are you a victim of rape or sexual assult? Call [facility] ([place]) 24 hour Crisis Hotline: 476.264.8604 or 688-067-4657. MANUAL Your Guide to a Healthy manual is now on-line. Visit [email or web address] to download your free copy documented in this encounter [facility] 07-05-2024 Telephone encounter Note Patient notified of results, verbalizes understanding of instructions. Cielo Lee RN [facility] 07-05-2024 Miscellaneous Notes Patient notified of results, verbalizes understanding of instructions. Cielo Lee RN Reviewed. Rx sent for Ampicillin 500 mg PO every 6 hours x 5 days.. Please notify patient. Oneida Mattson APRN.CNM Scan on 07/05/2024 9:07 AM by Provider, HELEN Snyder: Urine Lab faxed records from Pt seen in L&D on 07/01/24. Urine sensitivity still pending at this time. Please keep phone note open for follow-up. Sparkle Estrada RN Lab called and states will fax results. Sparkle Estrada RN Patient seen in L&D on 06/28/24. Urine culture returned positive but no sensitivity yet. Can you please follow up with provider after results for treatment due to symptoms and colony count. Jackie Candelaria APRN.CNM documented in this encounter [facility] 07-05-2024 Telephone encounter Note Reviewed. Rx sent for Ampicillin 500 mg PO every 6 hours x 5 days.. Please notify patient. Oneida Mattson APRN.CNM [facility] 07-05-2024 Telephone encounter Note Scan on 07/05/2024 9:07 AM by Provider, HELEN Snyder: Urine [facility] 07-03-2024 Telephone encounter Note Lab faxed records from Pt seen in L&D on 07/01/24. Urine sensitivity still pending at this time. Please keep phone note open for follow-up. Sparkle Estrada RN [facility] 07-03-2024 Telephone encounter Note Lab called and states will fax results. Sparkle Estrada RN [facility] 07-03-2024 Telephone encounter Note Patient seen in L&D on 06/28/24. Urine culture returned positive but no sensitivity yet. Can you please follow up with provider after results for treatment due to symptoms and colony count. Jackie Candelaria APRN.CNM [facility] 06-28-2024 Note Indication Evaluation of growth Maternal obesity, BMI >30 Impression REMOTE READ - Single, live, intrauterine . - The biometry is consistent with the assigned gestational dating. - The EFW is 1926 g, at the 50%. AC is at the 54%. - Amniotic fluid volume is normal amount with an MVP of 6.6 cm and KVNG of 19.9 cm. - The placenta is posterior, fundal. - No malformations visualized on a limited survey as detailed below. - Simple appearing stable right ovarian cyst as noted below Recommendations Growth in four weeks Maternal Assessment Height 165 cm Height (ft) 5 ft Height (in) 5 in Physical Exam Initial weight (lb) 239 lb Initial BMI 39.77 kg/m Maternal assessment other: 2 Para 1 Method Transabdominal ultrasound examination Krueger . Number of fetuses: 1 Dating LMP on: 11/18/2023 GA by LMP 31 w + 6 d JOSE J by LMP: 08/24/2024 GA by prior assessment 31 w + 6 d JOSE J by prior assessment: 08/24/2024 Ultrasound examination on: 06/28/2024 GA by U/S based upon: AC, BPD, Femur, HC GA by U/S 33 w + 4 d JOSE J by U/S: 08/12/2024 Assigned: based on stated JOSE J, selected on 06/28/2024 Assigned GA 31 w + 6 d Assigned JOSE J: 08/24/2024 General Evaluation Cardiac activity present. FHR 146 bpm. movements: present. Presentation: cephalic Placenta: Placental site: posterior, fundal Umbilical cord: Cord vessels: 3 vessel cord Amniotic fluid: Amount of AF: normal amount. MVP 6.6 cm. KVNG 19.9 cm. Q1 2.2 cm, Q2 6.6 cm, Q3 5.3 cm, Q4 5.8 cm Growth Overview Exam date GA BPD (mm) HC (mm) AC (mm) FL (mm) HL (mm) EFW (g) 04/11/2024 20w 5d 48.5 47% 182.7 48% 168.9 80% 32.2 38% 31 32% 392 59% 06/28/2024 31w 6d 88.7 >99% 324.4 97% 279.8 54% 57.8 17% 1926 50% Biometry Standard BPD 88.7 mm 35w 6d >99% Hadlock OFD 112.7 mm 34w 5d 91% Nicolaides HC 324.4 mm 35w 6d 97% Berta AC 279.8 mm 32w 0d 54% Hadlock Femur 57.8 mm 30w 2d 17% Berta EFW 1,926 g 31w 6d 50% Hadlock EFW (lb) 4 lb EFW (oz) 4 oz EFW by: Hadlock (HC-AC-FL) Extended Nocturnist Physician 7.0 mm Extremities / Bony Struc FL / HC 0.18 Other Structures FHR 146 bpm Anatomy Lateral ventricles: normal Cavum septi pellucidi: normal Cerebellum: normal Cisterna magna: normal 4-chamber view: normal RVOT view: normal LVOT view: normal 3-vessel view: normal Heart / Thorax Situs: situs solitus (normal) Diaphragm: normal Stomach: normal Kidneys: normal Bladder: normal sex: male Wants to know sex: yes Maternal Structures Ovaries / Tubes / Adnexa Rt ovary: Visualized Rt ovarian cyst(s): Cysts identified Rt ovarian cyst D1 51 mm Rt ovarian cyst D2 78 mm Rt ovarian cyst D3 60 mm Rt ovarian cyst mean 63.0 mm Rt ovarian cyst vol 124.973 cm Rt ovarian cyst findings: Unilocular simple cyst Lt ovary: Visualized Performed By: Cielo Phan RDMS, RVT Read By: Roopa Saul M.D. [facility] 06-28-2024 Progress note Formatting of t his note might be different from the original. S: Luzmaria Hearn is a 19 year old female who presents at 08/24/2024, by Last Menstrual Period for a routine visit. Denies headache, visual changes, chest pain, shortness of breath, vaginal bleeding, leakage of fluid, or dysuria. Feeling well, no complaints. Good movement, No contractions O: See flow sheet Gen: No apparent distress Abd: Gravid, nontender EFW 50% KVNG 20 ASSESSMENT/PLAN: 1. Obesity affecting in third trimester, unspecified obesity type - ICD9: 649.13, ICD10: O99.213 (primary diagnosis) Nsts at 36 weeks - URINE OB DIP B/O 2. 31 weeks gestation of - ICD9: V22.2, ICD10: Z3A.31 - URINE OB DIP B/O 3. Need for vaccination - ICD9: V05.9, ICD10: Z23 Tdap today Valentina Yo MD [facility] 06-28-2024 Miscellaneous Notes S: Luzmaria Hearn is a 19 year old female who presents at 08/24/2024, by Last Menstrual Period for a routine visit. Denies headache, visual changes, chest pain, shortness of breath, vaginal bleeding, leakage of fluid, or dysuria. Feeling well, no complaints. Good movement, No contractions O: See flow sheet Gen: No apparent distress Abd: Gravid, nontender EFW 50% KVNG 20 ASSESSMENT/PLAN: 1. Obesity affecting in third trimester, unspecified obesity type - ICD9: 649.13, ICD10: O99.213 (primary diagnosis) Nsts at 36 weeks - URINE OB DIP B/O 2. 31 weeks gestation of - ICD9: V22.2, ICD10: Z3A.31 - URINE OB DIP B/O 3. Need for vaccination - ICD9: V05.9, ICD10: Z23 Tdap today Valentina Yo MD documented in this encounter [facility] 06-28-2024 Note HNO ID: [id number] Author: DOMINIQUE LAU MA Service: ? Author Type: Distribution Center Supervisor Type: Progress Notes Filed: 06/28/2024 10:43 Note Text: Patient identified by name and date of . Luzmaria Hearn presents today for a vaccination of Tdap. Patient denies an allergy to latex: yes Patient denies a severe (life-threatening) allergy to a previous dose of Tdap, DTP, DTaP, DT or Td vaccine. Yes Patient denies history of epilepsy or neurological problems: Yes Patient is afebrile and denies being moderately or severely ill: Yes Patient denies history of Guillain-[place] Syndrome (a severe paralytic illness): Yes Tdap Adacel injection was given without incident. See immunizations for details of immunizations administered today. VIS sheet provided: Yes Provider Dr Yo was present in office at time of injection. Dominique Lau MA [facility] 06-28-2024 History of Presen t illness Narrative Patient identified by name and date of . Luzmaria Hearn presents today for a vaccination of Tdap. Patient denies an allergy to latex: yes Patient denies a severe (life-threatening) allergy to a previous dose of Tdap, DTP, DTaP, DT or Td vaccine. Yes Patient denies history of epilepsy or neurological problems: Yes Patient is afebrile and denies being moderately or severely ill: Yes Patient denies history of Guillain-[place] Syndrome (a severe paralytic illness): Yes Tdap Adacel injection was given without incident. See immunizations for details of immunizations administered today. VIS sheet provided: Yes Provider Dr Yo was present in office at time of injection. Dominique Lau MA documented in this encounter [facility] 06-28-2024 Instructions Dominique Lau MA - 06/28/2024 10:01 AM EDT SEQUENTIAL SCREENINGS [facility] offers sequential screenings for women who are interested in screenings for chromosomal abnormalities and certain defects during a . The sequential screen combines ultrasound and blood tests to determine the risk of chromosomal abnormalities, including Down's Syndrome (Trisomy 21) and Trisomy 18, as well as open neural tube defects including spina bifida. Ultrasound examination is performed between 11 weeks and 13 weeks gestational age. Blood tests are drawn after the ultrasound and again later in the between 15 and 21 weeks gestational age. Please let your physician know if you are interested in this testing. It will require an appointment with our library media technician. This is not an ultrasound performed by a physician in our office during a routine visit. SIGNS AND SYMPTOMS OF LABOR 1. Contractions every 10 minutes or more often 2. Clear, pink, or brownish fluid (water) leaking from vagina 3. Feeling that baby is pushing down, pressure 4. Low, dull backache 5. Cramps that feel like a period 6. Cramps with or without diarrhea If you notice any of the above symptoms, contact our office at [phone] and ask to speak with a nurse. After hours, you can call doctors registry at [phone] OR call [facility] at [phone] and ask to have the doctor distribution specialist paged. If you consider this an emergency, dial 07-07- or go to your nearest emergency department. NEED HELP? Are you dealing with a violent or abusive relationship? Are you a victim of rape or sexual assult? Call [facility] ([place]) 24 hour Crisis Hotline: 519.206.2952 or 293-931-0629. MANUAL Your Guide to a Healthy manual is now on-line. Visit [email or web address] to download your free copy documented in this encounter [facility] 06-14-2024 Progress note Formatting of t his note might be different from the original. S: Luzmaria Hearn is a 19 year old female who presents at 08/24/2024, by Last Menstrual Period for a routine visit. Denies headache, visual changes, chest pain, shortness of breath, vaginal bleeding, leakage of fluid, or dysuria. Feeling well, no complaints. Good movement, No contractions O: See flow sheet Gen: No apparent distress Abd: Gravid, nontender GCT normal Will do TDAP next visit GC/CT neg 05/31 ASSESSMENT/PLAN: 1. 29 weeks gestation of - ICD9: V22.2, ICD10: Z3A.29 (primary diagnosis) 2. Encounter for supervision of high risk in third trimester, antepartum - ICD9: V23.9, ICD10: O09.93 PTL labor precautions 3. Obesity affecting in third trimester, unspecified obesity type - ICD9: 649.13, ICD10: O99.213 NSTs planned Valentina Yo MD [facility] 06-14-2024 Miscellaneous Notes S: Luzmaria Hearn is a 19 year old female who presents at 08/24/2024, by Last Menstrual Period for a routine visit. Denies headache, visual changes, chest pain, shortness of breath, vaginal bleeding, leakage of fluid, or dysuria. Feeling well, no complaints. Good movement, No contractions O: See flow sheet Gen: No apparent distress Abd: Gravid, nontender GCT normal Will do TDAP next visit GC/CT neg 05/31 ASSESSMENT/PLAN: 1. 29 weeks gestation of - ICD9: V22.2, ICD10: Z3A.29 (primary diagnosis) 2. Encounter for supervision of high risk in third trimester, antepartum - ICD9: V23.9, ICD10: O09.93 PTL labor precautions 3. Obesity affecting in third trimester, unspecified obesity type - ICD9: 649.13, ICD10: O99.213 NSTs planned Valentina Yo MD documented in this encounter [facility] 06-14-2024 Instructions Isha Lucio MA - 06/14/2024 9:20 AM EDT SEQUENTIAL SCREENINGS [facility] offers sequential screenings for women who are interested in screenings for chromosomal abnormalities and certain defects during a . The sequential screen combines ultrasound and blood tests to determine the risk of chromosomal abnormalities, including Down's Syndrome (Trisomy 21) and Trisomy 18, as well as open neural tube defects including spina bifida. Ultrasound examination is performed between 11 weeks and 13 weeks gestational age. Blood tests are drawn after the ultrasound and again later in the between 15 and 21 weeks gestational age. Please let your physician know if you are interested in this testing. It will require an appointment with our library media technician. This is not an ultrasound performed by a physician in our office during a routine visit. SIGNS AND SYMPTOMS OF LABOR 1. Contractions every 10 minutes or more often 2. Clear, pink, or brownish fluid (water) leaking from vagina 3. Feeling that baby is pushing down, pressure 4. Low, dull backache 5. Cramps that feel like a period 6. Cramps with or without diarrhea If you notice any of the above symptoms, contact our office at [phone] and ask to speak with a nurse. After hours, you can call doctors registry at [phone] OR call [facility] at [phone] and ask to have the doctor distribution specialist paged. If you consider this an emergency, dial 9--1 or go to your nearest emergency department. NEED HELP? Are you dealing with a violent or abusive relationship? Are you a victim of rape or sexual assult? Call [facility] ([place]) 24 hour Crisis Hotline: 952.771.5214 or 849-322-6150. MANUAL Your Guide to a Healthy manual is now on-line. Visit [email or web address] to download your free copy documented in this encounter [facility] 05-31-2024 Miscellaneous Notes EH - S: Luzmaria is a 19 year old female who presents at 27w6d for a routine visit. Feeling movement. Denies headache, visual changes, chest pain, shortness of breath, vaginal bleeding, leakage of fluid, or dysuria. Occasional round ligament pain. O: See flow sheet Gen: No apparent distress Abd: Gravid, nontender, S=D ASSESSMENT/PLAN: 1. Encounter for supervision of high risk in third trimester, antepartum - ICD9: V23.9, ICD10: O09.93 (primary diagnosis) 2. 27 weeks gestation of - ICD9: V22.2, ICD10: Z3A.27 - 1 hour GCT, CBC, and RPR today - Rh positive - TDAP next visit - LARC form reviewed and signed. Declines. - Depression screen negative - plan form discussed and given to patient. 3. Obesity affecting in third trimester, unspecified obesity type - ICD9: 649.13, ICD10: O99.213 - Pre BMI 38 - Plan for 32 week growth q 4 weeks. Weekly NSTs at 36 weeks. 4. Chlamydia infection affecting in first trimester - ICD9: 647.63, 079.98, ICD10: O98.811, A74.9 - YENNY today 5. Ovarian cyst, right - ICD9: 620.2, ICD10: N83.201 - Overall stable in size 6. Nausea/vomiting in - ICD9: 643.90, ICD10: O21.9 - Intermittent, tolerable - No longer vomiting - Has not needed nausea medication for about a month - Pepcid helping with heartburn PTL precautions and kick counts reviewed. RTO in 2 weeks or sooner as needed. Evie Montes APRN.APPLIANCE TESTER documented in this encounter [facility] 05-31-2024 Progress note Formatting of t his note might be different from the original. EH - S: Luzmaria is a 19 year old female who presents at 27w6d for a routine visit. Feeling movement. Denies headache, visual changes, chest pain, shortness of breath, vaginal bleeding, leakage of fluid, or dysuria. Occasional round ligament pain. O: See flow sheet Gen: No apparent distress Abd: Gravid, nontender, S=D ASSESSMENT/PLAN: 1. Encounter for supervision of high risk in third trimester, antepartum - ICD9: V23.9, ICD10: O09.93 (primary diagnosis) 2. 27 weeks gestation of - ICD9: V22.2, ICD10: Z3A.27 - 1 hour GCT, CBC, and RPR today - Rh positive - TDAP next visit - LARC form reviewed and signed. Declines. - Depression screen negative - plan form discussed and given to patient. 3. Obesity affecting in third trimester, unspecified obesity type - ICD9: 649.13, ICD10: O99.213 - Pre BMI 38 - Plan for 32 week growth q 4 weeks. Weekly NSTs at 36 weeks. 4. Chlamydia infection affecting in first trimester - ICD9: 647.63, 079.98, ICD10: O98.811, A74.9 - YENNY today 5. Ovarian cyst, right - ICD9: 620.2, ICD10: N83.201 - Overall stable in size 6. Nausea/vomiting in - ICD9: 643.90, ICD10: O21.9 - Intermittent, tolerable - No longer vomiting - Has not needed nausea medication for about a month - Pepcid helping with heartburn PTL precautions and kick counts reviewed. RTO in 2 weeks or sooner as needed. Evie Montes APRN.APPLIANCE TESTER [facility] 05-31-2024 Instructions Frances Harper LPN - 05/31/2024 8:45 AM EDT SEQUENTIAL SCREENINGS [facility] offers sequential screenings for women who are interested in screenings for chromosomal abnormalities and certain defects during a . The sequential screen combines ultrasound and blood tests to determine the risk of chromosomal abnormalities, including Down's Syndrome (Trisomy 21) and Trisomy 18, as well as open neural tube defects including spina bifida. Ultrasound examination is performed between 11 weeks and 13 weeks gestational age. Blood tests are drawn after the ultrasound and again later in the between 15 and 21 weeks gestational age. Please let your physician know if you are interested in this testing. It will require an appointment with our library media technician. This is not an ultrasound performed by a physician in our office during a routine visit. SIGNS AND SYMPTOMS OF LABOR 1. Contractions every 10 minutes or more often 2. Clear, pink, or brownish fluid (water) leaking from vagina 3. Feeling that baby is pushing down, pressure 4. Low, dull backache 5. Cramps that feel like a period 6. Cramps with or without diarrhea If you notice any of the above symptoms, contact our office at [phone] and ask to speak with a nurse. After hours, you can call doctors registry at [phone] OR call [facility] at [phone] and ask to have the doctor distribution specialist paged. If you consider this an emergency, dial 9-1-5 or go to your nearest emergency department. NEED HELP? Are you dealing with a violent or abusive relationship? Are you a victim of rape or sexual assult? Call [facility] ([place]) 24 hour Crisis Hotline: 168.728.8253 or 172-395-5610. MANUAL Your Guide to a Healthy manual is now on-line. Visit [email or web address] to download your free copy documented in this encounter [facility] 05-03-2024 Progress note Formatting of t his note might be different from the original. NEENA-S: Luzmaria Hearn is a 19 year old female who presents at 23w6d with JOSE J:08/24/2024, by Last Menstrual Period for a routine visit. Denies headache, visual changes, chest pain, shortness of breath, vaginal bleeding, leakage of fluid, or dysuria. Feeling well, no complaints. Complaint of rash itching on groin, worse when wearing underwear. No new creams, lotions, or soaps. O: See flow sheet Gen: No apparent distress Abd: Gravid, nontender ASSESSMENT/PLAN: 1. Supervision of high risk in second trimester -Continue ASA -Continue PNV 2. 23 weeks gestation of - PTL precautions reviewed and when to call - RTO in 4 weeks 3. Obesity in , antepartum -Serial assessment of growth (32, 36 weeks) -Weekly surveillance from 36 weeks until delivery 4. Chlamydia infection affecting in first trimester - GONORRHEA/CHLAMYDIA NAAT 5. UTI (urinary tract infection) in , antepartum -Urine YENNY negative 6. Ovarian cyst, right - Stable and decreased in size. 7. History of macrosomia in in prior , currently 8. Nausea/vomiting in -Compazine PRN 9. Heartburn during in second trimester -Continue Pepcid 10. Irritant dermatitis -Reviewed hygiene measures -Kenalog ointment BID for 14 days. If no improvement to notify office. Jackie Candelaria APRN.CNM [facility] 05-03-2024 Miscellaneous Notes NEENA-S: Luzmaria Hearn is a 19 year old female who presents at 23w6d with JOSE J:08/24/2024, by Last Menstrual Period for a routine visit. Denies headache, visual changes, chest pain, shortness of breath, vaginal bleeding, leakage of fluid, or dysuria. Feeling well, no complaints. Complaint of rash itching on groin, worse when wearing underwear. No new creams, lotions, or soaps. O: See flow sheet Gen: No apparent distress Abd: Gravid, nontender ASSESSMENT/PLAN: 1. Supervision of high risk in second trimester -Continue ASA -Continue PNV 2. 23 weeks gestation of - PTL precautions reviewed and when to call - RTO in 4 weeks 3. Obesity in , antepartum -Serial assessment of growth (32, 36 weeks) -Weekly surveillance from 36 weeks until delivery 4. Chlamydia infection affecting in first trimester - GONORRHEA/CHLAMYDIA NAAT 5. UTI (urinary tract infection) in , antepartum -Urine YENNY negative 6. Ovarian cyst, right - Stable and decreased in size. 7. History of macrosomia in in prior , currently 8. Nausea/vomiting in -Compazine PRN 9. Heartburn during in second trimester -Continue Pepcid 10. Irritant dermatitis -Reviewed hygiene measures -Kenalog ointment BID for 14 days. If no improvement to notify office. Jackie Candelaria APRN.CNM documented in this encounter [facility] 05-03-2024 Instructions Isha Lucio MA - 05/03/2024 9:35 AM EDT SEQUENTIAL SCREENINGS The [facility] offers sequential screenings for women who are interested in screenings for chromosomal abnormalities and certain defects during a . The sequential screen combines ultrasound and blood tests to determine the risk of chromosomal abnormalities, including Down's Syndrome (Trisomy 21) and Trisomy 18, as well as open neural tube defects including spina bifida. Ultrasound examination is performed between 11 weeks and 13 weeks gestational age. Blood tests are drawn after the ultrasound and again later in the between 15 and 21 weeks gestational age. Please let your physician know if you are interested in this testing. It will require an appointment with our library media technician. This is not an ultrasound performed by a physician in our office during a routine visit. SIGNS AND SYMPTOMS OF LABOR 1. Contractions every 10 minutes or more often 2. Clear, pink, or brownish fluid (water) leaking from vagina 3. Feeling that baby is pushing down, pressure 4. Low, dull backache 5. Cramps that feel like a period 6. Cramps with or without diarrhea If you notice any of the above symptoms, contact our office at [phone] and ask to speak with a nurse. After hours, you can call doctors registry at [phone] OR call [facility] at [phone] and ask to have the doctor distribution specialist paged. If you consider this an emergency, dial 3-0-7 or go to your nearest emergency department. NEED HELP? Are you dealing with a violent or abusive relationship? Are you a victim of rape or sexual assult? Call [facility] ([place]) 24 hour Crisis Hotline: 614.641.6898 or 103-920-1662. MANUAL Your Guide to a Healthy manual is now on-line. Visit [email or web address] to download your free copy documented in this encounter [facility] 04-16-2024 Note HNO ID: [id number] Author: SANAZ KAISER PA Service: ? Author Type: Physician Shellac Polisher Type: Progress Notes Filed: 04/16/2024 19:07 Note Text: This note was created using [employer]. Subjective Luzmaria Hearn is a 19 year old female. HPI 19-year-old female presents for cough, fever, chills, sore throat starting yesterday. Patient is 21 weeks . Patient states she started feeling yesterday with some nasal congestion, cough, sore throat. She had a temp of 101.1 ?F. She states her temp today has been around 99. She has not had any Tylenol today. Patient states she has had nausea throughout her , unchanged. She has had a few episodes of vomiting today. She is still able to keep down fluids. She has normal movement. No vaginal bleeding, discharge, dysuria. She denies any chest pain. She states yesterday she felt a little short of breath with coughing and vomited after coughing, but no shortness of breath today or at rest. No chest pain. No sick contacts. She had COVID about a month ago. All of those symptoms resolved. No other complaint. PAST MEDICAL HISTORY Diagnosis Date Complication of anesthesia vomiting after surgery Depression History of macrosomia in infant in prior , currently 01/15/2024 PAST SURGICAL HISTORY Procedure Laterality Date LAPAROSCOPY SURG CHOLECYSTECTOMY 11/06/2014 Cholecystectomy, lap NEXPLANON INSERTION 03/27/2017 NEXPLANON REMOVAL 2020 ALLERGIES Morphine MEDICATIONS ondansetron orally disintegrating (ZOFRAN ODT) 4 mg disintegrating tablet Take 2 tablets by mouth every 8 hours as needed for nausea/vomiting. famotidine (PEPCID) 20 mg tablet Take 1 tablet by mouth two times a day. prochlorperazine (COMPAZINE) 10 mg tablet Take 1 tablet by mouth every 6 hours as needed (nausea). PNV no.95/ferrous fum/folic ac ( ORAL) Take by mouth. FAMILY HISTORY Problem Relation Age of Onset Hypertension Father Stroke Father multiple Heart disease Father Hypertension Maternal Grandmother Diabetes Paternal Grandfather Prostate Cancer Paternal Grandfather Breast Cancer Maternal Aunt Psychiatry Maternal Aunt Psychiatry Maternal Aunt Seizures Maternal Aunt Psychiatry Maternal Uncle Social History Tobacco Use Smoking status: Never Passive exposure: Never Smokeless tobacco: Never Vaping Use Vaping Use: Never used Substance Use Topics Alcohol use: No Drug use: No Review of Systems Constitutional: Positive for chills and fever. HENT: Positive for congestion and sore throat. Negative for ear pain. Respiratory: Positive for cough. Negative for shortness of breath. Cardiovascular: Negative for chest pain. Gastrointestinal: Negative for diarrhea and vomiting. Objective BP 132/82 Pulse 98 Temp 37.5 ?C (99.5 ?F) Resp 20 Wt 103 kg (227 lb 1.2 oz) LMP 11/18/2023 (Approximate) SpO2 96% BMI 36.93 kg/m? Physical Exam Vitals and nursing note reviewed. Constitutional: General: She is not in acute distress. Appearance: Normal appearance. She is not toxic-appearing. HENT: Right Ear: Tympanic membrane and ear canal normal. Left Ear: Tympanic membrane and ear canal normal. Nose: Nose normal. Mouth/Throat: Mouth: Mucous membranes are moist. Pharynx: Uvula midline. Posterior oropharyngeal erythema present. No oropharyngeal exudate. Tonsils: No tonsillar exudate. 1+ on the right. 1+ on the left. Eyes: Conjunctiva/sclera: Conjunctivae normal. Cardiovascular: Rate and Rhythm: Regular rhythm. Tachycardia present. Pulmonary: Effort: Pulmonary effort is normal. Breath sounds: Normal breath sounds. No wheezing, rhonchi or rales. Abdominal: General: Bowel sounds are normal. Palpations: Abdomen is soft. Tenderness: There is no abdominal tenderness. Neurological: Mental Status: She is alert. Assessment and Plan ASSESSMENT/PLAN: 1. Fever, unspecified fever cause - ICD9: 780.60, ICD10: R50.9 (primary diagnosis) - Strep negative - INFLUENZA AANDB MOLECULAR (POC)- negative -Suspect viral URI. Symptoms x 1 day. Lungs clear on exam. Pulse ox 96% on room air. No indication for antibiotic at this time as I have low suspicion for bacterial pathology. Suspect viral. -Recommend follow-up with OB closely and PCP if URI symptoms/fever persists. -Advised patient if she develops chest pain, shortness of breath, inability keep down fluids, intractable fever, go to ER. -Discussed she may use Tylenol to help with fever, and she was also given a list of [id number] safe medications for URI symptoms. 2. Sore throat - ICD9: 462, ICD10: J02.9 - suspect viral - Group A strep molecular testing negative - Discussed supportive care treatment with fluids, rest and analgesia. - The patient may also use warm salt water gargles, throat lozenges and/or OTC throat spray as needed. - STREP A MOLECULAR (POC) Diagnosis and treatment plan were discussed and (more content not included)... [facility] 04-16-2024 History of Presen t illness Narrative This note was created using [employer]. Subjective Luzmaria Hearn is a 19 year old female. HPI 19-year-old female presents for cough, fever, chills, sore throat starting yesterday. Patient is 21 weeks . Patient states she started feeling yesterday with some nasal congestion, cough, sore throat. She had a temp of 101.1 F. She states her temp today has been around 99. She has not had any Tylenol today. Patient states she has had nausea throughout her , unchanged. She has had a few episodes of vomiting today. She is still able to keep down fluids. She has normal movement. No vaginal bleeding, discharge, dysuria. She denies any chest pain. She states yesterday she felt a little short of breath with coughing and vomited after coughing, but no shortness of breath today or at rest. No chest pain. No sick contacts. She had COVID about a month ago. All of those symptoms resolved. No other complaint. PAST MEDICAL HISTORY Diagnosis Date Complication of anesthesia vomiting after surgery Depression History of macrosomia in in prior , currently 01/15/2024 PAST SURGICAL HISTORY Procedure Laterality Date LAPAROSCOPY SURG CHOLECYSTECTOMY 11/06/2014 Cholecystectomy, lap NEXPLANON INSERTION 03/27/2017 NEXPLANON REMOVAL 2020 ALLERGIES Morphine MEDICATIONS ondansetron orally disintegrating (ZOFRAN ODT) 4 mg disintegrating tablet Take 2 tablets by mouth every 8 hours as needed for nausea/vomiting. famotidine (PEPCID) 20 mg tablet Take 1 tablet by mouth two times a day. prochlorperazine (COMPAZINE) 10 mg tablet Take 1 tablet by mouth every 6 hours as needed (nausea). PNV no.95/ferrous fum/folic ac ( ORAL) Take by mouth. FAMILY HISTORY Problem Relation Age of Onset Hypertension Father Stroke Father multiple Heart disease Father Hypertension Maternal Grandmother Diabetes Paternal Grandfather Prostate Cancer Paternal Grandfather Breast Cancer Maternal Aunt Psychiatry Maternal Aunt Psychiatry Maternal Aunt Seizures Maternal Aunt Psychiatry Maternal Uncle Social History Tobacco Use Smoking status: Never Passive exposure: Never Smokeless tobacco: Never Vaping Use Vaping Use: Never used Substance Use Topics Alcohol use: No Drug use: No Review of Systems Constitutional: Positive for chills and fever. HENT: Positive for congestion and sore throat. Negative for ear pain. Respiratory: Positive for cough. Negative for shortness of breath. Cardiovascular: Negative for chest pain. Gastrointestinal: Negative for diarrhea and vomiting. Objective BP 132/82 Pulse 98 Temp 37.5 C (99.5 F) Resp 20 Wt 103 kg (227 lb 1.2 oz) LMP 11/18/2023 (Approximate) SpO2 96% BMI 36.93 kg/m Physical Exam Vitals and nursing note reviewed. Constitutional: General: She is not in acute distress. Appearance: Normal appearance. She is not toxic-appearing. HENT: Right Ear: Tympanic membrane and ear canal normal. Left Ear: Tympanic membrane and ear canal normal. Nose: Nose normal. Mouth/Throat: Mouth: Mucous membranes are moist. Pharynx: Uvula midline. Posterior oropharyngeal erythema present. No oropharyngeal exudate. Tonsils: No tonsillar exudate. 1+ on the right. 1+ on the left. Eyes: Conjunctiva/sclera: Conjunctivae normal. Cardiovascular: Rate and Rhythm: Regular rhythm. Tachycardia present. Pulmonary: Effort: Pulmonary effort is normal. Breath sounds: Normal breath sounds. No wheezing, rhonchi or rales. Abdominal: General: Bowel sounds are normal. Palpations: Abdomen is soft. Tenderness: There is no abdominal tenderness. Neurological: Mental Status: She is alert. Assessment and Plan ASSESSMENT/PLAN: 1. Fever, unspecified fever cause - ICD9: 780.60, ICD10: R50.9 (primary diagnosis) - Strep negative - INFLUENZA A&B MOLECULAR (POC)- negative -Suspect viral URI. Symptoms x 1 day. Lungs clear on exam. Pulse ox 96% on room air. No indication for antibiotic at this time as I have low suspicion for bacterial pathology. Suspect viral. -Recommend follow-up with OB closely and PCP if URI symptoms/fever persists. -Advised patient if she develops chest pain, shortness of breath, inability keep down fluids, intractable fever, go to ER. -Discussed she may use Tylenol to help with fever, and she was also given a list of [id number] safe medications for URI symptoms. 2. Sore throat - ICD9: 462, ICD10: J02.9 - suspect viral - Group A strep molecular testing negative - Discussed supportive care treatment with fluids, rest and analgesia. - The patient may also use warm salt water gargles, throat lozenges and/or OTC throat spray as needed. - STREP A MOLECULAR (POC) Diagnosis and treatment plan were discussed and questions were answered to the patient's satisfaction. Pt acknowledged understanding of concepts and follow up plan. Specific signs and symptoms that would indicate the need for higher level of care were discussed in detail warranting prompt ER evaluation. BO Murray documented in this encounter [facility] 04-09-2024 Telephone encounter Note I called patient because she did not do AFP that was ordered at last visit. Pt has upcoming appointment 04/11 in [place] for ultrasound. She is made aware she can do it at the lab at [place]. Discussed time limitations of testing [facility] 04-09-2024 Miscellaneous Notes I called patient because she did not do AFP that was ordered at last visit. Pt has upcoming appointment 04/11 in [place] for ultrasound. She is made aware she can do it at the lab at [place]. Discussed time limitations of testing documented in this encounter [facility] 03-29-2024 Progress note Formatting of t his note might be different from the original. RR- VB No. LOF No. CTXS No. Movement: present. Other c/o: still w/ nausea and vomiting. Zofran not helping. Heartburn as well. Vomited the zirhtromax for chlamydia. Partner treated and she hasn't had sex since. Medication list reviewed. Physical Exam See Flow Sheet Abd: soft, nontender, gravid Ext: edema: Trace A/P 18w6d Estimated Date of Delivery: 08/24/24 Labs: AFP today reviewed. n/v of w/ heartburn, rxs given zofran w/ compazine prn. Add pepcid for dyspepsia Phenergan suppositories d/francesco as they give her diarrhea schedule anatomy US obesity- has lost wt. D/w her goals for and will get growth scans third trimester retreat for chlamydia Jocelynn Araiza M.D. [facility] 03-29-2024 Miscellaneous Notes RR- VB No. LOF No. CTXS No. Movement: present. Other c/o: still w/ nausea and vomiting. Zofran not helping. Heartburn as well. Vomited the zirhtromax for chlamydia. Partner treated and she hasn't had sex since. Medication list reviewed. Physical Exam See Flow Sheet Abd: soft, nontender, gravid Ext: edema: Trace A/P 18w6d Estimated Date of Delivery: 08/24/24 Labs: AFP today reviewed. n/v of w/ heartburn, rxs given zofran w/ compazine prn. Add pepcid for dyspepsia Phenergan suppositories d/francesco as they give her diarrhea schedule anatomy US obesity- has lost wt. D/w her goals for and will get growth scans third trimester retreat for chlamydia Jocelynn Araiza M.D. documented in this encounter [facility] 03-21-2024 Note . MICRO - Microbiology PROCEDURE: Urine Culture [O1 *1] SOURCE: Urine BODY SITE: COLLECTED DATE/TIME: 03/19/2024 14:49 EDT RECEIVED DATE/TIME: 03/19/2024 19:01 EDT START DATE/TIME: 03/19/2024 19:02 EDT FREE TEXT SOURCE: FINAL REPORTS Final Report [] Verified Date/Time/Personnel: 03/21/2024 07:32 EDT No growth at 48 hours. PRELIMINARY REPORTS Preliminary Report [] Verified Date/Time/Personnel: 03/20/2024 09:10 EDT No growth to date Order Comments O1: Urine Culture Added by Discern Performing Locations *1: This test was performed at: [facility], [address] [place] [address], [id number] , [facility] [place] ([place]) 03-19-2024 Hospital Discharg e instructions Patient Education 03/19/2024 16:39:28 Bladder Infection, Female (Adult) Bladder Infection, Female (Adult) Urine is normally doesn't have any bacteria in it. But bacteria can get into the urinary tract from the skin around the rectum. Or they can travel in the blood from elsewhere in the body. Once they are in your urinary tract, they can cause infection in the urethra (urethritis), the bladder (cystitis), or the kidneys (pyelonephritis). The most common place for an infection is in the bladder. This is called a bladder infection. This is one of the most common infections in women. Most bladder infections are easily treated. They are not serious unless the infection spreads to the kidney. The phrases bladder infection, UTI, and cystitis are often used to describe the same thing. But they are not always the same. Cystitis is an inflammation of the bladder. The most common cause of cystitis is an infection. Symptoms The infection causes inflammation in the urethra and bladder. This causes many of the symptoms. The most common symptoms of a bladder infection are: Pain or burning when urinating Having to urinate more often than usual Urgent need to urinate Only a small amount of urine comes out Blood in urine Abdominal discomfort. This is usually in the lower abdomen above the pubic bone. Cloudy urine Strong- or bad-smelling urine Unable to urinate (urinary retention) Unable to hold urine in (urinary incontinence) Fever Loss of appetite Confusion (in older adults) Causes Bladder infections are not contagious. You can't get one from someone else, from a toilet seat, or from sharing a bath. The most common cause of bladder infections is bacteria from the bowels. The bacteria get onto the skin around the opening of the urethra. From there, they can get into the urine and travel up to the bladder, causing inflammation and infection. This usually happens because of: Wiping improperly after urinating. Always wipe from front to back. Bowel incontinence Procedures such as having a catheter inserted Older age Not emptying your bladder. This can allow bacteria a chance to grow in your urine. Dehydration Constipation Sex Use of a diaphragm for control Treatment Bladder infections are diagnosed by a urine test. They are treated with antibiotics and usually clear up quickly without complications. Treatment helps prevent a more serious kidney infection. Medicines Medicines can help in the treatment of a bladder infection: Take antibiotics until they are used up, even if you feel better. It is important to finish them to make sure the infection has cleared. You can use acetaminophen or ibuprofen for pain, fever, or discomfort, unless another medicine was prescribed. If you have chronic liver or kidney disease, talk with your healthcare provider before using these medicines. Also talk with your provider if you've ever had a stomach ulcer or gastrointestinal bleeding, or are taking blood-thinner medicines. If you are given phenazopydridine to reduce burning with urination, it will cause your urine to become a bright orange color. This can stain clothing. Care and prevention These self-care steps can help prevent future infections: Drink plenty of fluids to prevent dehydration and flush out your bladder. Do this unless you must restrict fluids for other health reasons, or your doctor told you not to. Proper cleaning after going to the bathroom is important. Wipe from front to back after using the toilet to prevent the spread of bacteria. Urinate more often. Don't try to hold urine in for a long time. Wear loose-fitting clothes and cotton underwear. Avoid tight-fitting pants. Improve your diet and prevent constipation. Eat more fresh fruit and vegetables, and fiber, and less junk and fatty foods. Avoid sex until your symptoms are gone. Avoid caffeine, alcohol, and spicy foods. These can irritate your bladder. Urinate right after intercourse to flush out your bladder. If you use control pills and have frequent bladder infections, discuss it with your doctor. Follow-up care Call your healthcare provider if all symptoms are not gone after 3 days of treatment. This is especially important if you have repeat infections. If a culture was done, you will be told if your treatment needs to be changed. If directed, you can call to find out the results. If X-rays were done, you will be told if the results will affect your treatment. Call 911 Call 911 if any of the following occur: Trouble breathing Hard to wake up or confusion Fainting or loss of consciousness Rapid heart rate When to seek medical advice Call your healthcare provider right away if any of these occur: Fever of 100.4 F (38.0 C) or higher, or as directed by your healthcare provider Symptoms are not better by the third day of treatment Back or belly (abdominal) pain that gets worse Repeated vomiting, or unable to keep medicine down Weakness or dizziness Vaginal discharge Pain, redness, or swelling in the outer vaginal area (labia) 4226-3885 [employer]. [address] [place] [address]. All rights reserved. This information is not intended as a substitute for professional medical care. Always follow your healthcare professional's instructions. Follow Up Care 03/19/2024 14:05:53 With:Follow up with your OBGYN as scheduled tomorrow Address:Unknown When:2-4 days With:Go to emergency room if symptoms worsen Address:Unknown When:2-4 days With:DUSTY GALEANO MD Address: [address] [place] [address]- When:5 to 7 days [facility] Alexis Munroe 03-19-2024 Note Discharge Instructions Thank you for allowing [facility] to assist you with your healthcare needs. The following is important discharge information regarding your hospital visit. Diagnosis from Today's Visit Abdominal pain in Flank pain Nausea/vomiting in UTI in What to Do Next Instructions from Your Care Team Please take your cephalexin as prescribed for UTI. Please take antacids as prescribed by your doctor. No qualifying data available. Post Acute Orders No qualifying data available. You Need to Schedule the Following Appointments Follow Up with Follow up with your OBGYN as scheduled tomorrow When Within 2-4 days Follow Up with Go to emergency room if symptoms worsen When Within 2-4 days Follow Up with DUSTY GALEANO MD When Within 5 to 7 days [address]: [address] [place] [address]- Allergies NKA Medications Please ask your primary doctor or pharmacist before taking any other medication not listed, including over the counter drugs, herbal medications, vitamins and or supplements as they may interact with your home medications. What How Much When Why Instructions Last Dose New cephalexin (cephalexin 500 mg oral capsule) 1 cap by mouth Every 12 hours Duration: 7 Days Printed Prescription Unchanged etonogestrel (Nexplanon 68 [...] with all medication providers or retail pharmacies. Medication Leaflets cephalexin (sef a KEITH in) What is the most important information I should know about cephalexin? You should not use this medicine if you are allergic to cephalexin or to similar antibiotics, such as Ceftin, Cefzil, Omnicef, and others. Tell your doctor if you are allergic to any drugs, especially penicillins or other antibiotics. What is cephalexin? Cephalexin is a cephalosporin (SEF a low spor in) antibiotic that is used to treat bacterial infections of the lungs, ear, skin, bones, bladder, and kidneys. Cephalexin is used to treat infections in adults and children who are at least 1 year old. Cephalexin may also be used for purposes not listed in this medication guide. What should I discuss with my healthcare provider before taking cephalexin? You should not use this medicine if you are allergic to cephalexin or any other cephalosporin antibiotic (cefdinir, cefadroxil, cefoxitin, cefprozil, ceftriaxone, cefuroxime, Omnicef, and others). Tell your doctor if you have ever had: an allergy to any drug (especially penicillin); liver or kidney disease; or intestinal problems, such as colitis. The liquid form of cephalexin may contain sugar. This may affect you if you have diabetes. Tell your doctor if you are or breast-feeding. How should I take cephalexin? Follow all directions on your prescription label and read all medication guides or instruction sheets. Use the medicine exactly as directed. Do not use cephalexin to treat any condition that has not been checked by your doctor. Measure liquid medicine carefully. Use the dosing syringe provided, or use a medicine dose-measuring device (not a kitchen spoon). Use this medicine for the full prescribed length of time, even if your symptoms quickly improve. Skipping doses can increase your risk of infection that is resistant to medication. Cephalexin will not treat a viral infection such as the flu or a common cold. Do not share cephalexin with another person, even if they have the same symptoms you have. This medicine can affect the results of certain medical tests. Tell any doctor who treats you that you are using cephalexin. Store the tablets and capsules at room temperature away from moisture, heat, and light. Store the liquid medicine in the refrigerator. Throw away any unused liquid after 14 days. What happens if I miss a dose? Take the medicine as soon as you can, but skip the missed dose if it is almost time for your next dose. Do not take two doses at one time. What happens if I overdose? Seek emergency medical attention or call the Poison Help line at . Overdose symptoms may include nausea, vomiting, stomach pain, diarrhea, and blood in your urine. What should I avoid while taking cephalexin? Antibiotic medicines can cause diarrhea, which may be a sign of a new infection. If you have diarrhea that is watery or bloody, call your doctor before using anti-diarrhea medicine. What are the possible side effects of cephalexin? Get emergency medical help if you have signs of an allergic reaction (hives, difficult breathing, swelling in your face or throat) or a severe skin reaction (fever, sore throat, burning eyes, skin pain, red or purple skin rash with blistering and peeling). Call your doctor at once if you have: severe stomach pain, diarrhea that is watery or bloody (even if it occurs months after your last dose); unusual tiredness, feeling light-headed or short of breath; easy bruising, unusual bleeding, purple or red spots under your skin; a seizure; pale skin, cold hands and feet; yellowed skin, dark colored urine; fever, weakness; or pain in your side or lower back, painful urination. Common side effects may include: diarrhea; nausea, vomiting; indigestion, stomach pain; or vaginal itching or discharge. This is not a complete list of side effects and others may occur. Call your doctor for medical advice about side effects. You may report side effects to FDA at 9-259-SNQ-1882. What other drugs will affect cephalexin? Tell your doctor about all your other medicines, especially: metformin; or probenecid. This list is not complete. Other drugs may affect cephalexin, including prescription and njuj-odk-gyjdvls medicines, vitamins, and herbal products. Not all possible drug interactions are listed here. Where can I get more information? Your pharmacist can provide more information about cephalexin. Remember, keep this and all other medicines out of the reach of children, never share your medicines with others, and use this medication only for the indication prescribed. Every effort has been made to ensure that the information provided by [employer]. ('[employer]') is accurate, up-to-date, and complete, but no guarantee is made to that effect. Drug information contained herein may be time sensitive. [employer] information has been compiled for use by healthcare practitioners and consumers in the [place] and therefore [employer] does not warrant that uses outside of the [place] are appropriate, unless specifically indicated otherwise. [employer]s drug information does not endorse drugs, diagnose patients or recommend therapy. [employer]s drug information is an informational resource designed to assist licensed healthcare practitioners in caring for their patients and/or to serve consumers viewing this service as a supplement to, and not a substitute for, the expertise, skill, knowledge and judgment of healthcare practitioners. The absence of a warning for a given drug or drug combination in no way should be construed to indicate that the drug or drug combination is safe, effective or appropriate for any given patient. [employer] does not assume any responsibility for any aspect of healthcare administered with the aid of information [employer] provides. The information contained herein is not intended to cover all possible uses, directions, precautions, warnings, drug interactions, allergic reactions, or adverse effects. If you have questions about the drugs you are taking, check with your doctor, nurse or pharmacist. Copyright 2492-7000 [employer]. Version: 10.06. Revision Date: 06/07/2023. Education Materials Bladder Infection, Female (Adult) Urine is normally doesn't have any bacteria in it. But bacteria can get into the urinary tract from the skin around the rectum. Or they can travel in the blood from elsewhere in the body. Once they are in your urinary tract, they can cause infection in the urethra (urethritis), the bladder (cystitis), or the kidneys (pyelonephritis). The most common place for an infection is in the bladder. This is called a bladder infection. This is one of the most common infections in women. Most bladder infections are easily treated. They are not serious unless the infection spreads to the kidney. The phrases bladder infection, UTI, and cystitis are often used to describe the same thing. But they are not always the same. Cystitis is an inflammation of the bladder. The most common cause of cystitis is an infection. Symptoms The infection causes inflammation in the urethra and bladder. This causes many of the symptoms. The most common symptoms of a bladder infection are: Pain or burning when urinating Having to urinate more often than usual Urgent need to urinate Only a small amount of urine comes out Blood in urine Abdominal discomfort. This is usually in the lower abdomen above the pubic bone. Cloudy urine Strong- or bad-smelling urine Unable to urinate (urinary retention) Unable to hold urine in (urinary incontinence) Fever Loss of appetite Confusion (in older adults) Causes Bladder infections are not contagious. You can't get one from someone else, from a toilet seat, or from sharing a bath. The most common cause of bladder infections is bacteria from the bowels. The bacteria get onto the skin around the opening of the urethra. From there, they can get into the urine and travel up to the bladder, causing inflammation and infection. This usually happens because of: Wiping improperly after urinating. Always wipe from front to back. Bowel incontinence Procedures such as having a catheter inserted Older age Not emptying your bladder. This can allow bacteria a chance to grow in your urine. Dehydration Constipation Sex Use of a diaphragm for control Treatment Bladder infections are diagnosed by a urine test. They are treated with antibiotics and usually clear up quickly without complications. Treatment helps prevent a more serious kidney infection. Medicines Medicines can help in the treatment of a bladder infection: Take antibiotics until they are used up, even if you feel better. It is important to finish them to make sure the infection has cleared. You can use acetaminophen or ibuprofen for pain, fever, or discomfort, unless another medicine was prescribed. If you have chronic liver or kidney disease, talk with your healthcare provider before using these medicines. Also talk with your provider if you've ever had a stomach ulcer or gastrointestinal bleeding, or are taking blood-thinner medicines. If you are given phenazopydridine to reduce burning with urination, it will cause your urine to become a bright orange color. This can stain clothing. Care and prevention These self-care steps can help prevent future infections: Drink plenty of fluids to prevent dehydration and flush out your bladder. Do this unless you must restrict fluids for other health reasons, or your doctor told you not to. Proper cleaning after going to the bathroom is important. Wipe from front to back after using the toilet to prevent the spread of bacteria. Urinate more often. Don't try to hold urine in for a long time. Wear loose-fitting clothes and cotton underwear. Avoid tight-fitting pants. Improve your diet and prevent constipation. Eat more fresh fruit and vegetables, and fiber, and less junk and fatty foods. Avoid sex until your symptoms are gone. Avoid caffeine, alcohol, and spicy foods. These can irritate your bladder. Urinate right after intercourse to flush out your bladder. If you use control pills and have frequent bladder infections, discuss it with your doctor. Follow-up care Call your healthcare provider if all symptoms are not gone after 3 days of treatment. This is especially important if you have repeat infections. If a culture was done, you will be told if your treatment needs to be changed. If directed, you can call to find out the results. If X-rays were done, you will be told if the results will affect your treatment. Call 911 Call 911 if any of the following occur: Trouble breathing Hard to wake up or confusion Fainting or loss of consciousness Rapid heart rate When to seek medical advice Call your healthcare provider right away if any of these occur: Fever of 100.4 F (38.0 C) or higher, or as directed by your healthcare provider Symptoms are not better by the third day of treatment Back or belly (abdominal) pain that gets worse Repeated vomiting, or unable to keep medicine down Weakness or dizziness Vaginal discharge Pain, redness, or swelling in the outer vaginal area (labia) 1449-7324 The [employer]. [address] [place] [address]. All rights reserved. This information is not intended as a substitute for professional medical care. Always follow your healthcare professional's instructions. Additional Information VACCINATE! IT SAVES LIVES! Members of the community who have not yet received the COVID-19 vaccine and would like to receive it can visit one of [facility] vaccine clinics. There are many vaccine clinic locations within the [facility]. For locations and available times, please visit [email or web address] .gov/. It is important to note that some COVID mobile vaccine clinics are held outdoors and may be canceled in rainy or stormy conditions. To learn more about pediatric vaccinations (ages 5-11), we invite you to visit the [facility] webpage. [email or web address]/ pages/9871-Izshp-Efttzzyyriq-Fr farpduku-Togue-Seaaidltc.html To learn more about the COVID-19 vaccine, we invite you to visit the CDC website for a list of frequently asked questions. https://www.cdc.gov/coronavirus /2019-ncov/vaccines/faq.html [facility] Patient Portal Access Instructions: Stay connected with your healthcare team and access your personal medical information anytime with the [facility] Patient Portal. If you would like a full copy of your medical records please contact the [facility] Medical Records Department Monday through Monday between 8a.m. and 4:30p.m. Please follow the directions below to access the portal: 1.Access the email account you provided upon registration to the [facility].2.Look for an invitation email from [facility].3.Open the email and access the invitation link: Accept Invitation to [facility]4.Fill in the required donahue to create your account. Sign into [email or web address] with your username and password that you [...] you will allow to register on the [facility] Patient Portal for access to your information. You can also access the [facility] Patient Portal on the [employer] katina. Simply click on Health Records under [...] Call your local pharmacy or go to [email or web address] to find one close to you.3.Make use of household items: Use cat litter or old coffee grounds to dispose medications if other options are not available. Mix your drugs with these household products, seal them in an airtight container and throw it into the garbage. Call [facility]: [phone] to be sure your drugs can be [...] a CHART COPY Signatures Patient Education Materials Bladder Infection, Female (Adult) Medication Leaflets cephalexin My discharge plan and instructions have been reviewed and explained to me and I,LUZMARIA HEARN M understand my current condition and have read and understand these discharge instructions. I have received a written copy of the plan/instructions. If I have questions, I am aware that I should contact my doctor. Patient/Obiee Consultant Signature: Date/Time: Relationship to Patient: Witness Name/Signature: Date/Time: [facility] 03-19-2024 Note Sinus rhythm BORDERLINE ECG Electronic Signature: ADILIA OHARA DO 03/19/2024 14:30:[address] [facility] 03-19-2024 Evaluation + Plan note Diagnostic Tests PendingUrine Culture 03/19/[address] [facility] 03-19-2024 Telephone encounter Note Patient notified and rescheduled. [facility] 03-19-2024 Miscellaneous Notes Patient notified and rescheduled. Recommend canceling OB appointment and rescheduling at least a week out. Nallely Romero MD 17w3d Calling because she tested positive for Covid at home today. Symptoms started late evening 03/15. Yesterday was the worse. Didn't check her temp, but feeling hot/cold often. Having a lot more nausea and vomited multiple times last night. Discussed going to ER if unable to keep anything down in 24 hours. She did contact PCP and is going in tomorrow for appt and official testing. Advised to rest, push fluids and add electrolyte drink when able, tylenol for headache/fever. [employer] message also sent with link to safe meds list. She does have appointment tomorrow with JG. How far out does that need rescheduled to now? Please advise if any further recommendations too. Angela George RN documented in this encounter [facility] 03-19-2024 Telephone encounter Note Recommend canceling OB appointment and rescheduling at least a week out. Nallely Romero MD [facility] Work Phone: 03-19-2024 Telephone encounter Note 17w3d Calling because she tested positive for Covid at home today. Symptoms started late evening 5/10. Yesterday was the worse. Didn't check her temp, but feeling hot/cold often. Having a lot more nausea and vomited multiple times last night. Discussed going to ER if unable to keep anything down in 24 hours. She did contact PCP and is going in tomorrow for appt and official testing. Advised to rest, push fluids and add electrolyte drink when able, tylenol for headache/fever. [employer] message also sent with link to safe meds list. She does have appointment tomorrow with JG. How far out does that need rescheduled to now? Please advise if any further recommendations too. Angela George RN [facility] 02-15-2024 Miscellaneous Notes S: Luzmaria Hearn is doing well today, no complaints at this time. Nausea getting better. Does tolerate PO fluids. Has not need to go the ED since last visit. Desires Materna 21. Going for New OB blood work today. Gets lightheaded at times. But is mostly drink zero calories sport drinks. Courage some liquids that will also provide calories. Has not taken the repeat dose of azithromycin. Vomited the first dose and the pharmacy would not refill it for her. Has also not taken any antibiotics for her urine. O: See OB Data A: IUP @ 12+5 Nausea and vomiting of P: Encouraging snacks and crackers. Now has popcicles. Schedule u/s for anatomy at 18-20 wks EGA. Reviewed blood pressure and weight. Return to office in 4 weeks and PRN. Valentina Yo MD documented in this encounter [facility] 02-15-2024 Instructions Catherine Thompson MA - 02/15/2024 9:01 AM EDT SEQUENTIAL SCREENINGS The [facility] offers sequential screenings for women who are interested in screenings for chromosomal abnormalities and certain defects during a . The sequential screen combines ultrasound and blood tests to determine the risk of chromosomal abnormalities, including Down's Syndrome (Trisomy 21) and Trisomy 18, as well as open neural tube defects including spina bifida. Ultrasound examination is performed between 11 weeks and 13 weeks gestational age. Blood tests are drawn after the ultrasound and again later in the between 15 and 21 weeks gestational age. Please let your physician know if you are interested in this testing. It will require an appointment with our library media technician. This is not an ultrasound performed by a physician in our office during a routine visit. SIGNS AND SYMPTOMS OF LABOR 1. Contractions every 10 minutes or more often 2. Clear, pink, or brownish fluid (water) leaking from vagina 3. Feeling that baby is pushing down, pressure 4. Low, dull backache 5. Cramps that feel like a period 6. Cramps with or without diarrhea If you notice any of the above symptoms, contact our office at [phone] and ask to speak with a nurse. After hours, you can call doctors registry at [phone] OR call [facility] at [phone] and ask to have the doctor distribution specialist paged. If you consider this an emergency, dial 6-5-4 or go to your nearest emergency department. NEED HELP? Are you dealing with a violent or abusive relationship? Are you a victim of rape or sexual assult? Call [facility] ([place]) 24 hour Crisis Hotline: 538.583.3244 or 287-163-0635. MANUAL Your Guide to a Healthy manual is now on-line. Visit [email or web address] to download your free copy documented in this encounter [facility] 01-25-2024 Miscellaneous Notes Luzmaria Hearn is a 19 year old female who presents at 9w5d as a follow up visit for nausea and vomiting. Seen last week due to inability to keep food and liquids. Continues to take Zofran daily with relief. Able to eat and drink. Occasional emesis. Has not thrown up for a couple of days. Ate Daniel Fox yesterday and feels like appetite is increased. Noticing acid reflux increasing. Will try taking Protonix daily. Was unable to keep Azithromycin 1000 mg PO down last week and will need another dose ordered for chlamydia treatment. Denies headache, visual changes, chest pain, shortness of breath, vaginal bleeding, leakage of fluid, or dysuria. - 5 lbs TWG. ASSESSMENT/PLAN: 1. 9 weeks gestation of - ICD9: V22.2, ICD10: Z3A.09 (primary diagnosis) 2. Chlamydia infection affecting in first trimester - ICD9: 647.63, 079.98, ICD10: O98.811, A74.9 3. Nausea/vomiting in - ICD9: 643.90, ICD10: O21.9 - Protonix 40 mg PO daily- Rx sent - Azithromycin 1000 mg PO x 1 dose- Rx sent - Will need YENNY in 3 weeks - To notify office if unable to keep any food or drink down for 24 hours - RTO 3 weeks for NT US and LABS Oneida Mattson APRN.CNM documented in this encounter [facility] 01-25-2024 Note HNO ID: [id number] Author: ONEIDA MATTSON APRN.CNM Service: ? Author Type: Machine Leather Trimmer Type: Progress Notes Filed: 01/25/2024 11:24 Note Text: . [facility] 01-25-2024 History of Presen t illness Narrative . documented in this encounter [facility] 01-18-2024 Miscellaneous Notes Luzmaria Hearn is a 19 year old female who presents at 8w5d for a follow up visit. Seen in two ED's 3 days ago for nausea and vomiting. Stated was unable to keep any food or liquids down for several days . Received 2 liters of fluid and started feeling better. No emesis since yesterday morning. Taking Zofran as needed and has used promethazine twice. Has not taken Azithromycin dose for chlamydia because she was afraid of vomiting. Able to keep liquids and toast down today. Denies any cramps or vaginal bleeding. Denies headache, visual changes, chest pain, shortness of breath, vaginal bleeding, leakage of fluid, or dysuria. -3 lbs TWG. ASSESSMENT/PLAN: 1. 8 weeks gestation of - ICD9: V22.2, ICD10: Z3A.08 (primary diagnosis) 2. Chlamydia infection affecting in first trimester - ICD9: 647.63, 079.98, ICD10: O98.811, A74.9 3. Nausea/vomiting in - ICD9: 643.90, ICD10: O21.9 - Continue to use promethazine rectal suppositories as needed - Zofran 8 mg PO every 8 hours as needed - Continue to slowly increase fluid and food intake - If unable to keep anything down for > 24 hours will call during office hours and may go to outpatient infusion therapy to get fluids - Will reevaluate in 1 week for possible need of Zofran pump - Take Azithromycin 1000 mg PO x 1 now and partner going for testing today Oneida Mattson APRN.CNM documented in this encounter [facility] 01-17-2024 Miscellaneous Notes Patient has follow up scheduled for tomorrow to discuss this. Evie Montes APRN.CNP Patient given message. Patient states that she was seen at [facility] for N&V yesterday-still not kept any fluids down. She refuses to go back to [facility] because she feels that they get mad at her because they feel the shoudn't be doing anything more-the that OB should be managing this . She will call us back if she cannot keep the medication down. She is aware of importance of her partner getting treated. Please advise. Health department requested chlamydia treatment information. Form faxed. Leave open for patient to call back. Angela George RN Left message for patient to call office. Health Department form in nurse phone room. Valentina Falcon RN Please notify patient: + for chlamydia. To treat with Azithromycin during . Partner needs treatment. Avoid intercourse during treatment and 7 days after. Will need rescreened in 4 weeks. Please notify health department. Also + for UTI. To treat with Keflex. She has had severe nausea and vomiting so we may have difficulty with oral treatment. Take antibiotic with food. Would recommend spreading Zofran from antibiotic - do not take at the same time. Evie Montes APRN.APPLIANCE TESTER documented in this encounter [facility] 01-17-2024 Hospital Discharg e instructions Patient Education [...] B6 and cristina. Don t try any ujir-nmn-mlvmuky medicines or home remedies without talking with [...] or as directed by your healthcare provider [phone] [employer]. [address] [place] [address]. All rights reserved. This information is not intended as a substitute for professional medical care. Always follow your healthcare professional's instructions. Follow Up Care 01/16/2024 20:02:52 With:Your OBGYN Address: When:2-[address] [facility] 01-16-2024 Emergency department Discharge summary Discharge Instructions Thank you for allowing [facility] to assist you with your healthcare needs. [...] Your provider may suggest vitamin B6 and rcistina. Don t try any huas-yui-mcffrtf medicines or home remedies without talking with [...] or as directed by your healthcare provider [phone] [employer]. [address] [place] [address], [place] [address]. All rights reserved. This information is not intended as a substitute for professional medical care. Always follow your healthcare professional's instructions. Additional Information VACCINATE! IT SAVES LIVES! Members of the community who have not yet received the COVID-19 vaccine and would like to receive it can visit one of [facility] vaccine clinics. There are many vaccine clinic locations within the [facility]. For locations and available times, please visit [email or web address] .[email or web address] It is important to note that some COVID mobile vaccine clinics are held outdoors and may be canceled in rainy or stormy conditions. To learn more about pediatric vaccinations (ages 5-11), we invite you to visit the [facility] webpage. https://www.[facility].org/ pages/6850-Sstwl-Arvulzymufz-Fr xzrnszkj-Pbhjd-Kyredalmt.html To learn more about the COVID-19 vaccine, we invite you to visit the CDC website for a list of frequently asked questions. https://www.cdc.gov/coronavirus /2019-ncov/vaccines/faq.html [facility] Patient Portal Access Instructions: Stay connected with your healthcare team and access your personal medical information anytime with the [facility] Patient Portal. If you would like a full copy of your medical records please contact the [facility] Medical Records Department Monday through Monday between 8a.m. and 4:30p.m. Please follow the directions below to access the portal: 1.Access the email account you provided upon registration to the [facility].2.Look for an invitation email from [facility].3.Open the email and access the invitation link: Accept Invitation to [facility]4.Fill in the required donahue to create your account. Sign into [email or web address] with your username and password that you [...] you will allow to register on the [facility] Patient Portal for access to your information. You can also access the [facility] Patient Portal on the [employer]. Simply click on Health Records under Health Data and then click on the [facility] logo. HOW TO SAFELY DISPOSE OF PRESCRIPTION [...] Call your local pharmacy or go to [email or web address] to find one close to you.3.Make use of household items: Use cat litter or old coffee grounds to dispose medications if other options are not available. Mix your drugs with these household products, seal them in an airtight container and throw it into the garbage. Call [facility]: [phone] to be sure your drugs can be [...] been reviewed and explained to me and I,LUZMARIA HEARN understand my current condition and have read and understand these discharge instructions. I have received a written copy of the plan/instructions. If I have questions, I am aware that I should contact my doctor. Patient/Obiee Consultant Signature: Date/Time: Relationship to Patient: Witness Name/Signature: Date/Time: [facility] 01-16-2024 Miscellaneous Notes Spoke with patient. She is in ED now and scheduled for f/u . Gio Hammond RN Left message to call office. Cielo [...] Cielo Lee RN documented in this encounter [facility] 01-15-2024 Note HNO ID: [id number] Author: EVIE MONTES APRN.CNP Service: ? Author Type: Nurse Practitioner Type: Progress Notes Filed: 01/15/2024 12:02 Note Text: OB point of care ultrasound was performed. See imaging tab for details. Evie Montes APRN.CNP [facility] 01-15-2024 History of Presen t illness Narrative OB point of care ultrasound was performed. See imaging tab for details. Evie Montes APRN.CNP documented in this encounter [facility] 01-15-2024 Note HNO ID: [id number] Author: EVIE MONTES APRN.CNP Service: ? 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 INITIAL OB ASSESSMENT HPI: Luzmaria is a 19 year old White here [...] 01/11/2024 GI Upset (more content not included)... [facility] 01-15-2024 History of Presen t illness Narrative Waterworks Employee offered: Patient declines. INITIAL OB ASSESSMENT HPI: Luzmaria is a 19 year old White here [...] Your guide to a health and the Wrecking Car Driver. Discussed aneuploidy screening, nuchal translucency/first trimester early anatomy ultrasound and NIPT. The risks/benefits and limitations of NIPT/aneuploidy screening were reviewed including the potential for false negative and false positive results. The availability of genetic counseling was reviewed. Information on aneuploidy screening was provided. The patient chooses to proceed with First trimester early anatomy ultrasound (12-13w6d). Checking with insurance about Ynmotagy01. Discussed myriad carrier screening. We discussed the availability of professional-society guided carrier screening and reviewed the conditions screened and limitations of screening. The availability of genetic counseling was reviewed. Information on carrier screening was provided. The patient Accepts Discussed hemoglobin electrophoresis. Patient: Declines Reviewed midwifery and shank tapper services that are available. 2) Patient offered option of Virtual Visits. Patient unsure. May consider in future. ACTIVE PROBLEM LIST Encounter for Supervision of High Risk in First Trimester, Antepartum - 01/15/2024 Comment: Care Checklist Vaccines: [ ] Flu vaccine [ ] declined [ ] RSV vaccine 32 0/7 - 36 6/ (Jul - Dec) [ ] declined [ ] COVID vaccine [ ] declined [ ] TDaP -36 [ ] declined First trimester: [X] Dating [...] Consent [ ] Contraception - [ ] Counseling Services Director Third trimester (36-40 weeks): [ ] GBS [...] > 24 hours without food or water Evie Montes APRN.NITZA Constipation During in First Trimester - 01/15/2024 Comment: Reviewed increased water intake and Colace. Family History of Diabetes Mellitus - 01/15/2024 Comment: FOB with type 1 Diabetes. Follow up for NT scan and OB visit. Evie Montes APRN.INTZA OB point of care ultrasound was performed. See imaging tab for details. Frances Ram LPN documented in this encounter [facility] 01-15-2024 Note HNO ID: [id number] Author: FRANCES RAM LPN Service: ? Author Type: LICENSED NURSE Type: Progress Notes Filed: 01/15/2024 12:15 Note Text: OB point of care ultrasound was performed. See imaging tab for details. Frances Ram LPN [facility] 01-11-2024 Instructions Evie Montes APRN.NITZA - 01/11/2024 11:25 AM EST Please select the following link to access the [facility] Your Guide to a Healthy . [email or web address] Please select the following link to access the [facility] Your Guide to a Healthy . [email or web address] Please select the following link to access the [facility] Your Guide to a Healthy . [email or web address] MORNING SICKNESS IN by Itzel Chin M.D. for [employer] As you may already know, morning sickness can often be more appropriately called evening sickness or qmmub-fexvfd-ro-the-day sickness. While there are the marisela few, [...] medication called Bendectin was available in the -1979's and was shown to be safe in [...] medication, Doxylamine, is currently marketed as an jpaw-bem-fyfalcm sleeping pill. Ask your practitioner if creating a vitamin B6/Doxylamine combination with vuea-cxl-uxmgpsl medications would be safe for you. Prescription [...] Phenergan, Compazine, Reglan documented in this encounter [facility] 2024 Miscellaneous Notes Pt voiced understanding and is on her way in to have lab work drawn today. Pt will then have help desk rep staff schedule her follow up ultrasound. Pt reports that she is having some slight cramping. Frances Ram LPN I am sorry this happened on her birthday! Yes repeat quant ordered. Is she having any pain? Schedule formal US for next week but call us if pain or heavier bleeding. Jocelynn Araiza MD LMP 11/17 hCG Quantitative, Blood Date Value 12/29/2023 2,007.0 mIU/mL 12/28/2023 1460 Patient called because she went to the bathroom and noted blood when she wiped. Light amount. Denies cramping or pain. Patient tearful on phone. Would you like her to have another hCG quant done? NOB is 01/14. Reviewed bleeding precautions. Valentina Highman, RN documented in this encounter [facility] 01-01-2024 Note HNO ID: [id number] Author: EVIE MONTES APRN.APPLIANCE TESTER Service: ? Author Type: Nurse Practitioner Type: Progress Notes Filed: 01/01/2024 13:44 Note Text: Luzmaria Hearn is a 18 year old female who presents for problem visit of nausea and vomiting. HPI: Luzmaria is in her first trimester of . She is throwing up about 5 times per day. She has been taking a family member's Zofran prescription to help with the nausea. Intrauterine was confirmed with an ER visit. She is able to eat and drink. OB History T1 L1 SAB0 IAB0 Ectopic0 Multiple0 Live Births1 Outcomes Analyst History LMP: 10/27/2021, Having periods Age at Menarche: Age at First : Age at Menopause: Outcomes Analyst History Comments: Sexual Activity: No sexual activity [...] > 24 hours without food or water Evie Montes APRN.APPLIANCE TESTER Medical Decision Making: Problems: Low: Acute, uncomplicated illness or injury Risk: Low: Low risk from testing/treatment Moderate: Drug management Medical Decision Making Level: 3 - Low [facility] 01-01-2024 Miscellaneous Notes Patient called. Reviewed her Hcg quants on [employer]. She continues to have N/V. Reviewed recommendations sent in previous [employer] message. Again, advised to go to ER [...] and to please try again later. Angela George RN Needs repeat HCG quant 48 hrs [...] it was positive so she went to [facility] ER. She is not having any pain this morning. No fever. Does have nausea/vomiting since 4am again. States that occurs every morning for the last few days and her appetite has been minimal. ER u/s showed intrauterine - yolk sac but no pole and 5.5cm right ovarian cyst. 12/28 hcg quant was 1460. ER records to to view. Please advise what follow up she needs. NOB will need scheduled too. Angela George RN documented in this encounter [facility] 10-25-2022 Hospital Discharg e instructions Patient [...] The opening where stool leaves the body. [phone] [employer]. [address] [place] [address], [place] [address]. All rights reserved. This information is not intended as a substitute for professional medical care. Always follow your healthcare professional's instructions. Follow Up Care 10/25/2022 14:26:13 With:DUSTY GALEANO MD Address: [address] [place] [address] [address] [place] [address]- When:2-[address] [facility] 10-25-2022 Note Discharge Instructions Thank you for allowing [facility] to assist you with your healthcare needs. [...] GALEANO MD When Within 2-4 days Where: [address] [place] [address] [address] [place] [address]- Allergies NKA Medications Please ask [...] The opening where stool leaves the body. [phone] [employer] [place] [address], [place] [address]. All rights reserved. This information is not intended as a substitute for professional medical care. Always follow your healthcare professional's instructions. Additional Information VACCINATE! IT SAVES LIVES! Members of the community who have not yet received the COVID-19 vaccine and would like to receive it can visit one of [facility] vaccine clinics. There are many vaccine clinic locations within the [facility]. For locations and available times, please visit [email or web address]. It is important to note that some COVID mobile vaccine clinics are held outdoors and may be canceled in rainy or stormy conditions. To learn more about pediatric vaccinations (ages 5-11), we invite you to visit the [facility] webpage. https://www.[facility].org/ pages/3815-Tgspj-Xpadkrlmloq-Fr afmotcij-Vykmx-Bjpckpaci.html To learn more about the COVID-19 vaccine, we invite you to visit the [facility] website for a list of frequently asked questions. [email or web address] [email or web address]-[email or web address]/[email or web address] -Frequently_Asked-Questions.pdf [facility] Patient Portal Access Instructions: Stay connected with your healthcare team and access your personal medical information anytime with the [facility] Patient Portal. If you would like a full copy of your medical records please contact the [facility] Medical Records Department Monday through Monday between 8a.m. and 4:30p.m. Please follow the directions below to access the portal: 1.Access the email account you provided upon registration to the hospital.2.Look for an invitation email from [facility].3.Open the email and access the invitation link: Accept Invitation to [facility]4.Fill in the required donahue to create your account. Sign into [email or web address] with your username and password that you [...] you will allow to register on the [facility] Patient Portal for access to your information. You can also access the [facility] Patient Portal on the [employer] katina. Simply click on Health Records under Health Data and then click on the [employer] logo. HOW TO SAFELY DISPOSE OF PRESCRIPTION [...] Call your local pharmacy or go to [email or web address] to find one close to you.3.Make use of household items: Use cat litter or old coffee grounds to dispose medications if other options are not available. Mix your drugs with these household products, seal them in an airtight container and throw it into the garbage. Call [facility]: [phone] to be sure your drugs can be [...] been reviewed and explained to me and I,LUZMARIA HEARN M understand my current condition and have read and understand these discharge instructions. I have received a written copy of the plan/instructions. If I have questions, I am aware that I should contact my doctor. Patient/Obiee Consultant Signature: Date/Time: Relationship to Patient: Witness Name/Signature: Date/Time: [facility] 10-25-2022 Note ORIGINAL EXAMINATION: CT OF [...] Sign Date: 10/25/2022 8:41:17 PM Ordering Provider: [facility] 10-25-2022 Note ORIGINAL EXAMINATION: CT OF [...] Sign Date: 10/25/2022 8:41:17 PM Ordering Provider: [facility] 10-25-2022 SARS-CoV-2 (COVID-19) RNA LILIA+probe Ql (Nph) Positive *ABN* (10/25/22 3:28 PM) AO Auto Urine SS 09-20-2016 History of Past i llness Narrative Problem Noted Date Diagnosed Date Resolved Date High risk with catherine vated human chorionic gonadotropin (hCG) and alpha fetoprotein (AFP) 09/20/2016 01/26/2021 Overview: September 20, 2016 needs growth scan in 3rd trimester. Jocelynn Araiza MD Rubella non-immune status, antepartum 07/28/2016 01/26/2021 High risk teen 06/09/2016 Overview: 06/09/2016Pt is 11 years old. She completed the 7th grade at [employer] last year and is planning on homeschooling [...] and was hospitalized for 1 week at [facility] for overdose of medication. She denies any [...] of this encounter (statuses as of 01/03/2024) [facility] History of Past illness Narrative* Problem Noted Date Diagnosed Date Resolved Date High risk with catherine vated human chorionic gonadotropin (hCG) and alpha fetoprotein (AFP) 09/20/2016 01/26/2021 Overview: September 20, 2016 needs growth scan in 3rd trimester. Jocelynn Araiza MD Rubella non-immune status, antepartum 07/28/2016 01/26/2021 High risk teen 06/09/2016 Overview: 06/09/2016Pt is 11 years old. She completed the 7th grade at [employer] last year and is planning on homeschooling [...] and was hospitalized for 1 week at [facility] for overdose of medication. She denies any [...] of this encounter (statuses as of 01/03/2024) [facility] History of Past illness Narrative* Problem Noted Date Diagnosed Date Resolved Date High risk with catherine vated human chorionic gonadotropin (hCG) and alpha fetoprotein (AFP) 09/20/2016 01/26/2021 Overview: September 20, 2016 needs growth scan in 3rd trimester. Jocelynn Araiza MD Rubella non-immune status, antepartum 07/28/2016 01/26/2021 High risk teen 06/09/2016 Overview: 06/09/2016Pt is 11 years old. She completed the 7th grade at [employer] last year and is planning on homeschooling [...] and was hospitalized for 1 week at [facility] for overdose of medication. She denies any [...] of this encounter (statuses as of 01/15/2024) [facility] History of Past illness Narrative* Problem Noted Date Diagnosed Date Resolved Date High risk with catherine vated human chorionic gonadotropin (hCG) and alpha fetoprotein (AFP) 09/20/2016 01/26/2021 Overview: September 20, 2016 needs growth scan in 3rd trimester. Jocelynn Araiza MD Rubella non-immune status, antepartum 07/28/2016 01/26/2021 High risk teen 06/09/2016 Overview: 06/09/2016Pt is 11 years old. She completed the 7th grade at [employer] last year and is planning on homeschooling [...] and was hospitalized for 1 week at [facility] for overdose of medication. She denies any [...] of this encounter (statuses as of 01/15/2024) [facility] History of Past illness Narrative* Problem Noted Date Diagnosed Date Resolved Date High risk with catherine vated human chorionic gonadotropin (hCG) and alpha fetoprotein (AFP) 09/20/2016 01/26/2021 Overview: September 20, 2016 needs growth scan in 3rd trimester. Jocelynn Araiza MD Rubella non-immune status, antepartum 07/28/2016 01/26/2021 High risk teen 06/09/2016 Overview: 06/09/2016Pt is 11 years old. She completed the 7th grade at [employer] last year and is planning on homeschooling [...] and was hospitalized for 1 week at [facility] for overdose of medication. She denies any [...] of this encounter (statuses as of 01/17/2024) [facility] History of Past illness Narrative* Problem Noted Date Diagnosed Date Resolved Date High risk with catherine vated human chorionic gonadotropin (hCG) and alpha fetoprotein (AFP) 09/20/2016 01/26/2021 Overview: September 20, 2016 needs growth scan in 3rd trimester. Jocelynn Araiza MD Rubella non-immune status, antepartum 07/28/2016 01/26/2021 High risk teen 06/09/2016 Overview: 06/09/2016Pt is 11 years old. She completed the 7th grade at [employer] last year and is planning on homeschohoustong this year. The FOB is 13 years [...] and was hospitalized for 1 week at [facility] for overdose of medication. She denies any [...] of this encounter (statuses as of 01/17/2024) [facility] History of Past illness Narrative* Problem Noted Date Diagnosed Date Resolved Date High risk with catherine vated human chorionic gonadotropin (hCG) and alpha fetoprotein (AFP) 09/20/2016 01/26/2021 Overview: September 20, 2016 needs growth scan in 3rd trimester. Jocelynn Araiza MD Rubella non-immune status, antepartum 07/28/2016 01/26/2021 High risk teen 06/09/2016 Overview: 06/09/2016Pt is 11 years old. She completed the 7th grade at [employer] last year and is planning on homeschohoustong this year. The FOB is 13 years [...] and was hospitalized for 1 week at [facility] for overdose of medication. 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 Jocelynn Araiza MD Rubella non-immune status, antepartum 07/28/2016 01/26/2021 High risk teen 06/09/2016 Overview: 06/09/2016Pt is 11 years old. She completed the 7th grade at [employer] last year and is planning on homeschooling [...] and was hospitalized for 1 week at [facility] for overdose of medication. 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 Jocelynn Araiza MD Rubella non-immune status, antepartum 07/28/2016 01/26/2021 High risk teen 06/09/2016 Overview: 06/09/2016Pt is 11 years old. She completed the 7th grade at [employer] last year and is planning on homeschooling [...] and was hospitalized for 1 week at [facility] for overdose of medication. 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 Jocelynn Araiza MD Rubella non-immune status, antepartum 07/28/2016 01/26/2021 High risk teen 06/09/2016 Overview: 06/09/2016Pt is 11 years old. She completed the 7th grade at [employer] last year and is planning on homeschooling [...] and was hospitalized for 1 week at [facility] for overdose of medication. She denies any [...] as of this encounter (statuses as of 02/16/2024) [facility] No data available for this section [facility] Evaluation note* Diagnosis Vaginal bleeding in , first trimester- Primary documented in this encounter [facility] note* Diagnosis Early stage of - Primary state, incidental documented in this encounter [facility] note* Diagnosis with uncertain dates in first trimester- Primary [facility] in this encounter [facility]* Diagnosis Encounter for supervision of high risk in first trimester, antepartum- Primary 8 weeks gestation of state, incidental with uncertain dates in first trimester History of macrosomia in infant in prior , currently with other poor [...] of the cervix documented in this encounter [facility] note* Diagnosis UTI (urinary tract infection) in , antepartum Infections of genitourinary tract antepartum Chlamydia infection affecting in first trimester documented in this encounter [facility] note* Diagnosis 8 weeks gestation of - Primary state, incidental Chlamydia infection affecting in first trimester Nausea/vomiting in Unspecified vomiting of , unspecified as to episode of care documented in this encounter [facility] note* Diagnosis 9 weeks gestation of - Primary state, incidental Chlamydia infection affecting in first trimester Nausea/vomiting in Unspecified vomiting of , unspecified as to episode of care [facility] Diagnosis Encounter for (NT) nuchal translucency scan- Primary Other specified screening Encounter for supervision of high risk in first trimester, antepartum 12 weeks gestation of state, incidental documented in this encounter [facility] note* Diagnosis 12 weeks gestation of - Primary state, incidental Encounter for supervision of high risk in first trimester, antepartum Chlamydia infection affecting in first trimester documented in this encounter [facility] note* Diagnosis Supervision of high risk in second trimester- Primary Unspecified high-risk 18 weeks gestation of state, incidental Nausea/vomiting in Unspecified vomiting of , unspecified as to episode of care Severe obesity due to excess calories affecting , antepartum (HCC) Heartburn during in second trimester documented in this encounter [facility] note* Diagnosis Encounter for anatomic survey- Primary 18 weeks gestation of state, incidental Obesity affecting in third trimester, unspecified obesity type documented in this encounter [facility] note* Diagnosis Fever, unspecified fever cause- Primary Sore throat Acute pharyngitis documented in this encounter [facility] note* Diagnosis Encounter for supervision of high risk in first trimester, antepartum- Primary 23 weeks gestation of state, incidental Supervision of high risk in second trimester Unspecified high-risk Chlamydia infection affecting in first trimester UTI (urinary tract infection) in , antepartum Infections of genitourinary tract antepartum Ovarian cyst, right Other and unspecified ovarian cyst History of macrosomia in in prior , currently with other poor obstetric history Nausea/vomiting in Unspecified vomiting of , unspecified as to episode of care Heartburn during in second trimester Obesity in , antepartum Obesity complicating , childbirth, or the puerperium, antepartum condition or complication Irritant dermatitis Contact dermatitis and other eczema, due to unspecified cause documented in this encounter [facility] note* Diagnosis Encounter for supervision of high risk in third trimester, antepartum- Primary 27 weeks gestation of state, incidental Obesity affecting in third trimester, unspecified obesity type Chlamydia infection affecting in first trimester Ovarian cyst, right Other and unspecified ovarian cyst Nausea/vomiting in Unspecified vomiting of , unspecified as to episode of care documented in this encounter [facility] note* Diagnosis 29 weeks gestation of - Primary state, incidental Encounter for supervision of high risk in third trimester, antepartum Obesity affecting in third trimester, unspecified obesity type documented [facility]* Diagnosis Obesity affecting in third trimester, unspecified obesity type- Primary 31 weeks gestation of state, incidental Need for vaccination Need for prophylactic vaccination and inoculation against unspecified single disease documented in this encounter [facility] note* Diagnosis Encounter for ultrasound to check growth- Primary Encounter for routine screening for malformation using ultrasonics Obesity affecting in third trimester, unspecified obesity type 31 weeks gestation of state, incidental [facility] Diagnosis Obesity affecting in third trimester, unspecified obesity type- Primary Encounter for ultrasound to check growth Encounter for routine screening for malformation using ultrasonics tachycardia affecting management of mother Abnormality in heart rate/rhythm, unspecified as to episode of care or not applicable 34 weeks gestation of state, incidental [facility] Diagnosis 35 weeks gestation of - Primary state, incidental Obesity affecting in third trimester, unspecified obesity type Heartburn during in third trimester [facility] Diagnosis Encounter for ultrasound to check growth- Primary Encounter for routine screening for malformation using ultrasonics Obesity affecting in third trimester, unspecified obesity type 36 weeks gestation of state, incidental [facility] Diagnosis Obesity affecting in third trimester, unspecified obesity type- Primary Heartburn during in third trimester 36 weeks gestation of state, incidental Positive GBS test [facility] Diagnosis Encounter for supervision of high risk in third trimester, antepartum- Primary 37 weeks gestation of state, incidental Obesity affecting in third trimester, unspecified obesity type [facility]* Diagnosis Encounter for supervision of high risk in third trimester, antepartum- Primary 38 weeks gestation of state, incidental Obesity affecting in third trimester, unspecified obesity type Heartburn during in third trimester Positive GBS test [facility] Diagnosis 39 weeks gestation of - Primary state, incidental Obesity affecting in third trimester, unspecified obesity type Encounter for supervision of high risk in third trimester, antepartum [facility] Diagnosis Heartburn during in third trimester- Primary Family history of diabetes mellitus History of macrosomia in in prior , currently with other poor obstetric history Obesity in , antepartum Obesity complicating , childbirth, or the puerperium, antepartum condition or complication Encounter for supervision of high risk in third trimester, antepartum 40 weeks gestation of state, incidental Positive GBS test [facility] Diagnosis 40 weeks [facility] of - Primary state, incidental Obesity in , antepartum Obesity complicating , childbirth, or the puerperium, antepartum condition or complication Encounter for supervision of high risk in third trimester, antepartum documented in this encounter [facility] for referral (narrative)* Diagnostic Procedure Only (Routine) - Authorized Specialty Diagnoses / Procedures Referred By Contac t Referred To Contact US IMAGING Diagnoses Vaginal bleeding in , first trimester Procedures US FEMALE PELVIS TRANSVAG US TRANSVAGINAL Jocelynn Araiza MD [address] [place] [address] Us Imaging [id number] Referral ID Status Reason Start Date Expiration Date Visits Requested Visits Authorized [id number] Authorized Auto-Generat ed Referral 2024 01/31/2025 1 1 [facility] for referral (narrative)* Diagnostic Procedure Only (Routine) - Authorized Specialty Diagnoses / Procedures Referred By Contac t Referred To Contact [facility] Diagnoses Encounter for supervision of high risk in first trimester, antepartum 8 weeks gestation of with uncertain dates in first trimester Procedures NUCHAL TRANSLUCENCY WHI US NUCHAL TRANSLUCENCY GESTATION Evie Montes APRN.CNP [address] [place] [address] [address] Referral ID Status Reason Start Date Expiration Date Visits Requested Visits Authorized [id number] Authorized Auto-Generat ed Referral 01/15/2024 01/14/2025 1 1 [facility] for referral (narrative)* Diagnostic Procedure Only (Routine) - Authorized Specialty Diagnoses / Procedures Referred By Contac t Referred To Contact [facility] Diagnoses 18 weeks gestation of Procedures OBSTETRIC ULTRASOUND WHI US PREG UTERUS AFTER 1ST TRIMEST GESTATION Jocelynn Araiza MD [address] [place] [address] [facility] [address] [place] [address] Referral ID Status Reason Start Date Expiration Date Visits Requested Visits Authorized [id number] Authorized Auto-Generat ed Referral 03/25/2024 03/25/2025 1 1 [facility] for referral (narrative)* Diagnostic Procedure Only (Routine) - Authorized Specialty Diagnoses / Procedures Referred By Contac t Referred To Contact [facility] Diagnoses Encounter for supervision of high risk in third trimester, antepartum 27 weeks gestation of Obesity affecting in third trimester, unspecified obesity type Procedures OBSTETRIC ULTRASOUND WHI US PREG UTERUS AFTER 1ST TRIMEST GESTATION Evie Montes APRN.CNP [address] [place] [place] [address] [facility] [place] [address] Referral ID Status Reason Start Date Expiration Date Visits Requested Visits Authorized [id number] Authorized Auto-Generat ed Referral 05/31/2024 05/31/2025 1 1 [facility] for referral (narrative)* Diagnostic Procedure Only (Routine) - Authorized Specialty Diagnoses / Procedures Referred By Contac t Referred To Contact [facility] Diagnoses Obesity affecting in third trimester, unspecified obesity type Encounter for ultrasound to check growth Procedures OBSTETRIC ULTRASOUND WHI US PREG UTERUS AFTER 1ST TRIMEST GESTATION Valentina Yo MD [address] [place] [address] [facility] [address] [place] [address] Referral ID Status Reason Start Date Expiration Date Visits Requested Visits Authorized [id number] Authorized Auto-Generat ed Referral 07/16/2024 07/16/2025 1 1 [facility] for referral (narrative)* Outpatient Procedure (Routine) - Authorized Specialty Diagnoses / Procedures Referred By Contac t Referred To Contact [facility] Diagnoses 35 weeks gestation of Obesity affecting in third trimester, unspecified obesity type Procedures NON-STRESS TEST NON-STRESS TEST Oneida Mattson APRN.CNM [address] [place] [address] [address] Referral ID Status Reason Start Date Expiration Date Visits Requested Visits Authorized [id number] Authorized Auto-Generat ed Referral 07/26/2024 07/26/2025 1 1 [facility] for referral (narrative)* Outpatient Procedure (Routine) - Authorized Specialty Diagnoses / Procedures Referred By Contac t Referred To Contact [facility] Diagnoses Obesity affecting in third trimester, unspecified obesity type Encounter for supervision of high risk in third trimester, antepartum 38 weeks gestation of Procedures NON-STRESS TEST NON-STRESS TEST Jackie Candelaria APRN.CNM [address] [place] [address] [address] Referral ID Status Reason Start Date Expiration Date Visits Requested Visits Authorized [id number] Authorized Auto-Generat ed Referral 08/16/2025 3 1 [facility] for visit Narrative* Diagnostic Procedure Only (Routine) - Closed Specialty Diagnoses / Procedures Referred By Contac t Referred To Contact [facility] Diagnoses Obesity affecting in third trimester, unspecified obesity type Encounter for ultrasound to check growth Procedures OBSTETRIC ULTRASOUND WHI US PREG UTERUS AFTER 1ST TRIMEST GESTATION Valentina Yo MD [address] [place] [address] [address] [place] [address] Referral ID Status Reason Start Date Expiration Date V isits Requested Visits Authorized [id number] Closed Auto-Generate d Referral 07/16/2024 07/16/2025 1 1 [facility] Summary Purpose Family History No Family History Records FoundNo Family History Records Found No data available for this section No data available for this section No Family History Records FoundNo Family History Records FoundNo Family History Records Found Advance Directives No Advanced Directives Records FoundNo Advanced Directives Records FoundNo Advanced Directives Records FoundNo Advanced Directives Records FoundNo Advanced Directives Records Found Health Concerns Active Problems Noted Date Diagnosed Date [facility] 01/11/2024 [facility] - [place] 01/11/2024 Active Problems Noted Date Diagnosed Date [facility] - [facility] 01/11/2024 [facility] - [place] 01/11/2024 Active Problems Noted Date Diagnosed Date [facility] 01/11/2024 [facility] - [place] 01/11/2024 Active Problems Noted Date Diagnosed Date [facility] - [facility] 01/11/2024 [facility] - [place] 01/11/2024 Active Problems Noted Date Diagnosed Date [facility] - [facility] 01/11/2024 Education - [place] 01/11/2024 Active Problems Noted Date Diagnosed Date [facility] - [facility] 01/11/2024 [facility] - [place] 01/11/2024 Active Problems Noted Date Diagnosed Date [facility] - [facility] 01/11/2024 [facility] - [place] 01/11/2024 Active Problems Noted Date Diagnosed Date [facility] 01/11/2024 [facility] - [place] 01/11/2024 Additional Source Comments INFORMATION SOURCE (unrecogn ized section and content) DATE CREATED AUTHOR 04/25/2018 [facility] DATE CREATED AUTHOR AUTHOR'S ORGANIZ ATION 11/10/2023 [facility] DATE CREATED AUTHOR AUTHOR'S ORGANIZ ATION 03/24/2024 [facility] DATE CREATED AUTHOR AUTHOR'S ORGANIZ ATION 04/13/2024 [facility] DATE CREATED AUTHOR AUTHOR'S ORGANIZ ATION 08/28/2024 [facility] Care Team (unrecognized sect ion and content) Care Team Personnel Name: DUSTY GALEANO MD Member Role: Primary Care Physician Address: Address: [address] [place] [address]- [place] Name: CLARE LIZ MD Position: ED Physician Member Role: ED Physician Address: Address: [facility] [address] [facility] [address] [place] [address]- Name: SHRUTI LEONE DO Position: Resident Member Role: Resident Address: Address: [address] [facility] [place] [address]- Name: Sandra Hassan RN Position: AO RN Member Role: ED RN Care Team Related Persons Name: ISHA HEARN Address: Home [address] [place] [address] Name: SUSI HEARN Address: [place] [address] [facility] [place] [address] Source Comments (unrecognize d section and content) In the event this informatio n is protected by the Federal Confidentiality of Alcohol and Drug Abuse Patient Records regulations: The Federal rules restrict any use of the information to criminally investigate or prosecute any alcohol or drug abuse patient.[facility] the event this information is protected by the Federal Confidentiality of Alcohol and Drug Abuse Patient Records regulations: The Federal rules restrict any use of the information to criminally investigate or prosecute any alcohol or drug abuse patient.[facility] the event this information is protected by the Federal Confidentiality of Alcohol and Drug Abuse Patient Records regulations: The Federal rules restrict any use of the information to criminally investigate or prosecute any alcohol or drug abuse patient.[facility] the event this information is protected by the Federal Confidentiality of Alcohol and Drug Abuse Patient Records regulations: The Federal rules restrict any use of the information to criminally investigate or prosecute any alcohol or drug abuse patient.[facility] the event this information is protected by the Federal Confidentiality of Alcohol and Drug Abuse Patient Records regulations: The Federal rules restrict any use of the information to criminally investigate or prosecute any alcohol or drug abuse patient.[facility] the event this information is protected by the Federal Confidentiality of Alcohol and Drug Abuse Patient Records regulations: The Federal rules restrict any use of the information to criminally investigate or prosecute any alcohol or drug abuse patient.[facility] the event this information is protected by the Federal Confidentiality of Alcohol and Drug Abuse Patient Records regulations: The Federal rules restrict any use of the information to criminally investigate or prosecute any alcohol or drug abuse patient.[facility] the event this information is protected by the Federal Confidentiality of Alcohol and Drug Abuse Patient Records regulations: The Federal rules restrict any use of the information to criminally investigate or prosecute any alcohol or drug abuse patient.[facility] the event this information is protected by the Federal Confidentiality of Alcohol and Drug Abuse Patient Records regulations: The Federal rules restrict any use of the information to criminally investigate or prosecute any alcohol or drug abuse patient.[facility] the event this information is protected by the Federal Confidentiality of Alcohol and Drug Abuse Patient Records regulations: The Federal rules restrict any use of the information to criminally investigate or prosecute any alcohol or drug abuse patient.[facility] the event this information is protected by the Federal Confidentiality of Alcohol and Drug Abuse Patient Records regulations: The Federal rules restrict any use of the information to criminally investigate or prosecute any alcohol or drug abuse patient.[facility] the event this information is protected by the Federal Confidentiality of Alcohol and Drug Abuse Patient Records regulations: The Federal rules restrict any use of the information to criminally investigate or prosecute any alcohol or drug abuse patient.[facility] the event this information is protected by the Federal Confidentiality of Alcohol and Drug Abuse Patient Records regulations: The Federal rules restrict any use of the information to criminally investigate or prosecute any alcohol or drug abuse patient.[facility] the event this information is protected by the Federal Confidentiality of Alcohol and Drug Abuse Patient Records regulations: The Federal rules restrict any use of the information to criminally investigate or prosecute any alcohol or drug abuse patient.[facility] the event this information is protected by the Federal Confidentiality of Alcohol and Drug Abuse Patient Records regulations: The Federal rules restrict any use of the information to criminally investigate or prosecute any alcohol or drug abuse patient.[facility] Hospital[facility] the event this information is protected by the Federal Confidentiality of Alcohol and Drug Abuse Patient Records regulations: The Federal rules restrict any use of the information to criminally investigate or prosecute any alcohol or drug abuse patient.[facility] the event this information is protected by the Federal Confidentiality of Alcohol and Drug Abuse Patient Records regulations: The Federal rules restrict any use of the information to criminally investigate or prosecute any alcohol or drug abuse patient.[facility] the event this information is protected by the Federal Confidentiality of Alcohol and Drug Abuse Patient Records regulations: The Federal rules restrict any use of the information to criminally investigate or prosecute any alcohol or drug abuse patient.[facility] HospitalIn the event this information is protected by the Federal Confidentiality of Alcohol and Drug Abuse Patient Records regulations: The Federal rules restrict any use of the information to criminally investigate or prosecute any alcohol or drug abuse patient.[facility] HospitalIn the event this information is protected by the Federal Confidentiality of Alcohol and Drug Abuse Patient Records regulations: The Federal rules restrict any use of the information to criminally investigate or prosecute any alcohol or drug abuse patient.[facility] HospitalIn the event this information is protected by the Federal Confidentiality of Alcohol and Drug Abuse Patient Records regulations: The Federal rules restrict any use of the information to criminally investigate or prosecute any alcohol or drug abuse patient.[facility] HospitalIn the event this information is protected by the Federal Confidentiality of Alcohol and Drug Abuse Patient Records regulations: The Federal rules restrict any use of the information to criminally investigate or prosecute any alcohol or drug abuse patient.[facility] HospitalIn the event this information is protected by the Federal Confidentiality of Alcohol and Drug Abuse Patient Records regulations: The Federal rules restrict any use of the information to criminally investigate or prosecute any alcohol or drug abuse patient.[facility] HospitalIn the event this information is protected by the Federal Confidentiality of Alcohol and Drug Abuse Patient Records regulations: The Federal rules restrict any use of the information to criminally investigate or prosecute any alcohol or drug abuse patient.[facility] HospitalIn the event this information is protected by the Federal Confidentiality of Alcohol and Drug Abuse Patient Records regulations: The Federal rules restrict any use of the information to criminally investigate or prosecute any alcohol or drug abuse patient.[facility] HospitalIn the event this information is protected by the Federal Confidentiality of Alcohol and Drug Abuse Patient Records regulations: The Federal rules restrict any use of the information to criminally investigate or prosecute any alcohol or drug abuse patient.[facility] HospitalIn the event this information is protected by the Federal Confidentiality of Alcohol and Drug Abuse Patient Records regulations: The Federal rules restrict any use of the information to criminally investigate or prosecute any alcohol or drug abuse patient.[facility] HospitalIn the event this information is protected by the Federal Confidentiality of Alcohol and Drug Abuse Patient Records regulations: The Federal rules restrict any use of the information to criminally investigate or prosecute any alcohol or drug abuse patient.[facility] HospitalIn the event this information is protected by the Federal Confidentiality of Alcohol and Drug Abuse Patient Records regulations: The Federal rules restrict any use of the information to criminally investigate or prosecute any alcohol or drug abuse patient.[facility] HospitalIn the event this information is protected by the Federal Confidentiality of Alcohol and Drug Abuse Patient Records regulations: The Federal rules restrict any use of the information to criminally investigate or prosecute any alcohol or drug abuse patient.[facility] HospitalIn the event this information is protected by the Federal Confidentiality of Alcohol and Drug Abuse Patient Records regulations: The Federal rules restrict any use of the information to criminally investigate or prosecute any alcohol or drug abuse patient.[facility] HospitalIn the event this information is protected by the Federal Confidentiality of Alcohol and Drug Abuse Patient Records regulations: The Federal rules restrict any use of the information to criminally investigate or prosecute any alcohol or drug abuse patient.[facility] HospitalIn the event this information is protected by the Federal Confidentiality of Alcohol and Drug Abuse Patient Records regulations: The Federal rules restrict any use of the information to criminally investigate or prosecute any alcohol or drug abuse patient.[facility] HospitalIn the event this information is protected by the Federal Confidentiality of Alcohol and Drug Abuse Patient Records regulations: The Federal rules restrict any use of the information to criminally investigate or prosecute any alcohol or drug abuse patient.[facility] HospitalIn the event this information is protected by the Federal Confidentiality of Alcohol and Drug Abuse Patient Records regulations: The Federal rules restrict any use of the information to criminally investigate or prosecute any alcohol or drug abuse patient.[facility] HospitalIn the event this information is protected by the Federal Confidentiality of Alcohol and Drug Abuse Patient Records regulations: The Federal rules restrict any use of the information to criminally investigate or prosecute any alcohol or drug abuse patient.[facility] Reason for Visit (unrecogniz ed section and content) Reason Comments Early OB Bleeding Reason Comments ER F/U Reason Comments Initial OB Visit Reason Comments Nausea & Vomiting Reason Comments Results Reason Comments ED Follow-up N/V Reason Comments US Specialty Diagnoses / Procedures Referred By Kya t Referred To Contact [facility] Diagnoses Encounter for supervision of high risk in first trimester, antepartum 8 weeks gestation of with uncertain dates in first trimester Procedures NUCHAL TRANSLUCENCY WHI US NUCHAL TRANSLUCENCY 1ST GESTATION Evie Montes, MICHELLE.APPLIANCE TESTER [address] [place] [address] [facility] [address] [place] [address] Referral ID Status Reason Start Date Expiration Date V isits Requested Visits Authorized [id number] Closed Auto-Generate d Referral 01/15/2024 01/14/2025 1 1 Reason Onset Date Comments Care 02/15/2024 Reason Comments Covid Positive Reason Comments Lab Orders Specialty Diagnoses / Procedures Referred By Contac t Referred To Contact [facility] Diagnoses 18 weeks gestation of Procedures OBSTETRIC ULTRASOUND WHI US PREG UTERUS AFTER 1ST TRIMEST GESTATION Jocelynn Araiza MD [address] [place] [address] [address] Referral ID Status Reason Start Date Expiration Date V isits Requested Visits Authorized [id number] Closed Auto-Generate d Referral 03/25/2024 03/25/2025 1 1 Reason Comments Cough Fever, chill, SOB, s ore throat x 2 days Reason Onset Date Comments Care 05/03/2024 Reason Comments Refill Request Reason Onset Date Comments Care 05/31/2024 Reason Onset Date Comments Care 06/14/2024 Reason Onset Date Comments Care 06/28/2024 Specialty Diagnoses / Procedures Referred By Contac t Referred To Contact [facility] Diagnoses Encounter for supervision of high risk in third trimester, antepartum 27 weeks gestation of Obesity affecting in third trimester, unspecified obesity type Procedures OBSTETRIC ULTRASOUND WHI US PREG UTERUS AFTER 1ST TRIMEST GESTATION Evie Montes, MICHELLE.APPLIANCE TESTER [address] 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 - Other PRAF Reason Comments Question (OB Question) Reason Onset Date Comments Care 08/26/2024 Reason Onset Date Comments Care 08/28/2024 Care Teams (unrecognized sec tion and content) Radio Repairman Relationship Specialty Start Date End Date Dusty Galeano [address] [place] [address] PCP - General Pediatrics 01/01/24 Karen Griffin [address] [place] [address] Pediatrics 08/23/17 Radio Repairman Relationship Specialty Start Date End Date Karen Griffin [address] [place] [address] PCP - General Pediatrics 03/14/18 12/31/23 Dusty Galeano [address] [place] [address] PCP - General Pediatrics 01/01/24 Karen Griffin [address] [place] [address] Pediatrics 08/23/17 Radio Repairman Relationship Specialty Start Date End Date Dusty Galeano [address] [place] [address] PCP - General Pediatrics 01/01/24 Karen Griffin [address] [place] [address] Pediatrics 08/23/17 Radio Repairman Relationship Specialty Start Date End Date Dusty Galeano [address] [place] [address] PCP - General Pediatrics 01/01/24 Karen Griffin [address] [place] [address] Pediatrics 08/23/17 Radio Repairman Relationship Specialty Start Date End Date Dusty Galeano [address] [place] [address] PCP - General Pediatrics 01/01/24 Karen Griffin [address] [place] [address] Pediatrics 08/23/17 Radio Repairman Relationship Specialty Start Date End Date Dusty Galeano [address] [place] [address] PCP - General Pediatrics 01/01/24 Karen Griffin [address] [place] [address] Pediatrics 08/23/17 Radio Repairman Relationship Specialty Start Date End Date Dusty Galeano [address] [place] [address] PCP - General Pediatrics 01/01/24 Karen Griffin [address] [place] [address] Pediatrics 08/23/17 Radio Repairman Relationship Specialty Start Date End Date Dusty Galeano [address] [place] [address] PCP - General Pediatrics 01/01/24 Karen Griffin [address] [place] [address] Pediatrics 08/23/17 Radio Repairman Relationship Specialty Start Date End Date Dusty Galeano [address] [place] [address] PCP - General Pediatrics 01/01/24 Karen Griffin [address] [place] [address] Pediatrics 08/23/17 Radio Repairman Relationship Specialty Start Date End Date Dusty Galeano [address] [place] [address] PCP - General Pediatrics 01/01/24 Karen Griffin [address] [place] [address] Pediatrics 08/23/17 Radio Repairman Relationship Specialty Start Date End Date Dusty Galeano [address] [place] [address] PCP - General Pediatrics 01/01/24 Karen Griffin [address] [place] [address] Pediatrics 08/23/17 Radio Repairman Relationship Specialty Start Date End Date Dusty Galeano [address] [place] [address] PCP - General Pediatrics 01/01/24 Karen Griffin [address] [place] [address] Pediatrics 08/23/17 Radio Repairman Relationship Specialty Start Date End Date Dusty Galeano [address] [place] [address] PCP - General Pediatrics 01/01/24 Karen Griffin [address] [place] [address] Pediatrics 08/23/17 Radio Repairman Relationship Specialty Start Date End Date Dusty Galeano [address] [place] [address] PCP - General Pediatrics 01/01/24 Karen Griffin [address] [place] [address] Pediatrics 08/23/17 Radio Repairman Relationship Specialty Start Date End Date Dusty Galeano [address] [place] [address] PCP - General Pediatrics 01/01/24 Karen Griffin [address] [place] [address] Pediatrics 08/23/17 Radio Repairman Relationship Specialty Start Date End Date Dusty Galeano [address] [place] [address] PCP - General Pediatrics 01/01/24 Karen Griffin [address] [place] [address] Pediatrics 08/23/17 Radio Repairman Relationship Specialty Start Date End Date Dusty Galeano [address] [place] [address] PCP - General Pediatrics 01/01/24 Karen Griffin [address] [place] [address] Pediatrics 08/23/17 Radio Repairman Relationship Specialty Start Date End Date Dusty Galeano [address] [place] [address] PCP - General Pediatrics 01/01/24 Karen Griffin [address] [place] [address] Pediatrics 08/23/17 Radio Repairman Relationship Specialty Start Date End Date Dusty Galeano [address] [place] [address] PCP - General Pediatrics 01/01/24 Karen Griffin [address] [place] [address] Pediatrics 08/23/17 Radio Repairman Relationship Specialty Start Date End Date Dusty Galeano [address] [place] [address] PCP - General Pediatrics 01/01/24 Karen Griffin [address] [place] [address] Pediatrics 08/23/17 Radio Repairman Relationship Specialty Start Date End Date Dusty Galeano [address] [place] [address] PCP - General Pediatrics 01/01/24 Karen Griffin [address] [place] [address] Pediatrics 08/23/17 Radio Repairman Relationship Specialty Start Date End Date Dusty Galeano [address] [place] [address] PCP - General Pediatrics 01/01/24 Karen Griffin [address] [place] [address] Pediatrics 08/23/17 Radio Repairman Relationship Specialty Start Date End Date Dusty Galeano [address] [place] [address] PCP - General Pediatrics 01/01/24 Karen Griffin [address] [place] [address] Pediatrics 08/23/17 FOR RECORDS PERTAINING TO PATIENTS [...] BE BASED ON THE PRIMARY CLINICAL RECORDS. [facility]. provides no warranty or guarantee of the accuracy or completeness of information in this document.
[2024-08-29] MEDS: Lactated Ringers 1,000 ML 50 ML IV (05:15)
[2024-08-29] MEDS: Penicillin G Pot 5,000,000 UNITS in 0.9% Normal Saline (100mL MB+) 100 ML 150 UNITS IV (05:15)
[2024-08-29 05:32] LABS: Absolute Lymphocyte Count 3.02 X10^3/uL (0.83-4.51); Absolute Neutrophil Count 13.7 X10^3/uL (2.0-7.7); Basophil# 0.09 X10^3/uL; Basophil% 0.5 % (0-1); Eosinophils% 1.6 % (0-5); Hematocrit 32.8 % (37-47); Hemoglobin 11.1 g/dL (12.0-15.0); Lymphocyte # 3.02 X10^3/ul (0.83-4.51); Lymphocyte % 16.6 % (19-41); Mean Corp Hgb Conc 33.8 g/dL (32-36); Mean Corpuscular Hgb 27.8 pg (27.0-32.0); Monocyte# 0.96 X10^3/uL; Monocyte% 5.3 % (0-10); NRBC Flagged by Analyzer 0 % (0-5); Neutrophil # 13.68 X10^3/uL (2.7-7.7); Neutrophil % 75.1 % (47-70); Platelet Count 322 K/mm3 (150-450); RBC Distribution Width CV 12.4 % (11.6-14.6); RBC Distribution Width SD 37.2 fl (35.1-43.9); White Blood Count 18.2 K/mm3 (4.4-11.0)
[2024-08-29] MEDS: Ondansetron 4 MG/2 ML Vial IV ×2 (05:44→10:53)
[2024-08-29 06:22] LABS: Syphilis Antibodies Non-reactive
[2024-08-29 07:00] LABS: Protein, Urine (Random) 50.7 mg/dL (<11.9); Protein:Creat Ratio 527 mg/g CRE (0-200)
[2024-08-29 07:02] LABS: Amphetamine Urine VISTA NEGATIVE (<1000 ng/mL); Barbiturate Urine VISTA NEGATIVE (< 200 ng/mL); Benzodiazepine Urine VISTA NEGATIVE (< 200 ng/mL); Cocaine Urine VISTA NEGATIVE (< 300 ng/mL); Ecstacy Urine VISTA NEGATIVE (< 500 ng/mL); Methadone Urine VISTA NEGATIVE (< 300 ng/mL); PCP Urine VISTA NEGATIVE (< 25 ng/mL); THC Urine VISTA POSITIVE (< 50 ng/mL); Vista UDS pH Range 5
--- NOTE | 2024-08-29 07:07 | PCM.HP.OB ---
HPI - General General Date of Admission: 08/29/24 Date of Service: 08/29/24 Chief Complaint: SROM HPI Narrative MILADYS KENDRICK, is a 19 F who presents with SROM clear. Few contractions Maternal Data Information Final JOSE J: 08/25/24 Gestational age: 40+4 PFSH PFSH Medical History (Updated 08/29/24 @ 07:[address] Valentina Yo MD) Depression Chlamydia infection affecting Cyst of right ovary Home Medications ?Medication ?Instructions ?Recorded ?Last Taken ?Type ondansetron 4 mg disintegrating 4 mg PO Q6H PRN PRN Nausea #20 tabs 01/08/24 08/28/24 Rx tablet promethazine 25 mg rectal 25 mg RECTAL Q6H PRN PRN Nausea 01/08/24 Unknown Rx suppository (Promethegan) ##15 aspirin 81 mg capsule 81 mg PO DAILY 08/25/24 Unknown History pantoprazole 40 mg granules 40 mg PO DAILY INDIGE 08/25/24 Unknown History delayed-release for susp in packet (Protonix) vit no.95-ferrous 1 tab PO DAILY 08/25/24 08/28/24 History fumarate 28 mg-folic acid 800 mcg tablet () Allergy/AdvReac Type Severity Reaction Status Date / Time morphine AdvReac Vomiting Verified 08/29/24 05:15 Surgical History History of cholecystectomy Social History Smoking Status: Never smoker History 2 Elective abortions Hx Para 1 Spontaneous abortions Hx # Term Pregnancies Ectopic pregnancies Hx # Pregnancies Multiple births # of living children NST FHR Rate Baby A Baseline: 135 Variability:: Moderate Accelerations:: 15 x 15 Decelerations:: None NST Reactive:: Yes FHR Category:: Category I Uterine Activity:: irregular ROS Constitutional Constitutional: Denies fatigue, fever(s) or malaise Eyes Eyes: Denies change in vision ENT HEENT: Denies dizziness or headache(s) Cardiovascular Cardiovascular: Denies chest pain, dyspnea or lightheadedness Respiratory/Chest Respiratory/Chest: Denies cough or dyspnea Gastrointestinal Gastrointestinal: Denies change in bowel habits Genitourinary Genitourinary: Denies burning urination or genital lesions Integumentary Integumentary: Denies rash Neurologic Neurologic: Denies confusion, dizziness, headache(s), numbness or weakness Vital Signs Vital Signs Vital Signs: 08/29/24 05:12 08/29/24 05:12 08/29/24 05:12 Temperature Temperature Source Pulse Rate 80 Blood Pressure 141/95 H BP Systolic 141 BP Diastolic 95 Pulse Ox 97 08/29/24 05:12 08/29/24 05:12 08/29/24 05:32 Temperature 97.3 F L Temperature Source Temporal Pulse Rate Blood Pressure 142/79 H BP Systolic 142 BP Diastolic 79 Pulse Ox 08/29/24 05:32 Temperature Temperature Source Pulse Rate 90 Blood Pressure BP Systolic BP Diastolic Pulse Ox Weight Weight: 104.871 kg Body Mass Index (BMI) 37.3 Physical Exam Const alert and no apparent distress General Appearance: cooperative HEENT normocephalic Resp normal respiratory effort Cardio regular rate GI soft to palpation GI Narrative: gravid, nontender, appropriate for gestational age Extremity no calf tenderness General Extremity: edema Skin no wounds Rashes: No rashes noted Psych activity/motor behavior normal Labs Labs Labs: Blood Type A POSITIVE Antibody Screen NEGATIVE Hct 32.8 % (37-47) L Hgb 11.1 g/dL (12.0-15.0) L Obstetrics Ultrasound Syphilis Total Ab Non-reactive Rhogam given: No Assessment & Plan (1) SROM (spontaneous rupture of membranes): (2) Positive GBS test: (3) 40 weeks gestation of : PLAN: Plan PCN prophylaxis Pit prn Epidural prn
[2024-08-29 08:09] LABS: AST(SGOT) 10 U/L (15-37); Alanine Aminotransfer ALT/SGPT 16 U/L (13-56); Creatinine, Serum 0.66 mg/dL (0.55-1.02); EST Glomerular Filtration Rate 120 mL/min (>60); Est Glom Filt Rate - Afr Amer 145 mL/min (>60); Estimated Creatinine Clearance 165.03 ml/min; Uric Acid 3.4 mg/dL (2.6-6.0)
[2024-08-29] MEDS: Oxytocin 15 Units/NS 250ml 15 UNITS/250 ML IV.SOLN 2 UNITS IV (08:28)
[2024-08-29] MEDS: Lactated Ringers 1,000 ML 999 ML IV (08:42)
--- NOTE | 2024-08-29 08:47 | PN.OBGYN_ITS ---
Subjective Subjective Patient seen at bedside. Denies any pain at this time. Desires epidural once painful. Objective Data Objective Data Vital Signs: Vital Signs Temp Pulse Resp BP Pulse Ox 97.9 F 156 H 16 123/61 H 87 08/29/24 07:16 08/29/24 07:42 08/29/24 07:16 08/29/24 07:17 08/29/24 07:42 Weight: 231 lb 3.2 oz Body Mass Index (BMI) 37.3 Intake & Output: Intake and Output for Last 24 Hours 08/27/24 08/28/24 08/29/24 23:59 23:59 23:59 Intake Total 105 / 105 Balance 105 / 105 Lab / Micro Data 08/29/24 05:15 08/29/24 05:15 Labs: Laboratory Results - last 24 hr 08/29/24 05:15: WBC 18.2 H, RBC 4.00 L, Hgb 11.1 L, Hct 32.8 L, MCV 82.0, MCH 27.8, MCHC 33.8, RDW Std Deviation 37.2, RDW Coeff of Beata 12.4, Plt Count 322, MPV 10.0, Immature Gran % (Auto) 0.900, Neut % (Auto) 75.1 H, Lymph % (Auto) 16.6 L, Zapata % (Auto) 5.3, Eos % (Auto) 1.6, Baso % (Auto) 0.5, Absolute Neuts (auto) 13.7 H, Absolute Lymphs (auto) 3.02, Nucleated RBC % 0, Creatinine 0.66, Estim Creat Clear Calc 165.03, Est GFR (MDRD) Af Amer 145, Est GFR (MDRD) Non-Af 120, Uric Acid 3.4, AST 10 L, ALT 16, Syphilis Total Ab Non-reactive, Blood Type A POSITIVE, Antibody Screen NEGATIVE 08/29/24 06:30: U Random Total Protein 50.7 H, Urine Creatinine 96.20, P rotein/Creatinin Ratio 527 H, Urine Opiates Screen NEGATIVE, Urine Methadone Screen NEGATIVE, Ur Barbiturates Screen NEGATIVE, Ur Phencyclidine Scrn NEGATIVE, Ur Amphetamines Screen NEGATIVE, MDMA (Ecstasy) Screen NEGATIVE, U Benzodiazepines Scrn NEGATIVE, Urine Cocaine Screen NEGATIVE, U Cannabinoids Screen POSITIVE H, Ur Drug Screen Comment Assessment & Plan (1) Positive GBS test: (2) SROM (spontaneous rupture of membranes): (3) 40 weeks gestation of : (4) Depression: COMMENT: history of suicidal ideation as a child (5) Chlamydia infection affecting : PLAN: Plan CE /-1 No change since admission Start Pitocin 2 mu/min and increase per policy Continue PCN IV for GBS Epidural when indicated Anticipate Dr. La updated and is on unit
[2024-08-29] MEDS: fentaNYL-bupivacaine (epidural) 100 ML BAG EPIDURAL (09:50)
[2024-08-29] MEDS: Penicillin G 3,000,000 Units 50 ML 100 UNITS IV ×2 (10:00→13:49)
--- NOTE | 2024-08-29 15:16 | OB.VAGDELI_ITS ---
Assessment & Plan (1) (spontaneous vaginal delivery): (2) Depression: COMMENT: history of suicidal ideation as a child (3) Chlamydia infection affecting : (4) Positive GBS test: Maternal Data Information JOSE J Calculator Estimated Delivery Date Method Current WG Current Estimate 08/24/24 Manual 40w 5d Vaginal Delivery Maternal Presentation Maternal Presentation: Spontaneous Rupture of Membranes Type of Induction: Pitocin (Augmentation) Vaginal Delivery Information Procedure Performed: Spontaneous Vaginal Delivery Date of Procedure: 08/29/24 Pre-Procedure Diagnosis: Term gestation, Spontaneous rupture of membranes Post-Procedure Diagnosis: , Live male Type of anesthesia: Epidural Estimated Blood Loss: 200 Time of Delivery: 15:04 Findings Description of procedure: Called to patient's room for feeling pressure and wanting to push. With minimal maternal effort, head delivered over intact perineum followed by anterior shoulder and remainder of infant body without traction. Vigorous male placed on maternal abdomen and was attended to by nursing staff. Pitocin IV started for active management of the third stage of labor. 3 vessel cord clamped and cut by patient's mother after delay. Placenta delivered spontaneously and intact. Vaginal sweep completed. Vagina and perineum intact. Fundus firm and 2 below U. Hemostasis obtained. Patient and infant bonding well at this time. 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
[2024-08-29] MEDS: Oxytocin 15 Units/NS 250ml 15 UNITS/250 ML IV.SOLN 83 UNITS IV (15:38)
[2024-08-30] VITALS (8 sets, daily range): BP systolic 118–138; BP diastolic 65–89; PULSE 68–89; RESP 16–17; TEMP 36.3–37.1; O2SAT 98–99
[2024-08-30] MEDS: Acetaminophen 500 MG Tablet 1000 MG PO (04:23)
--- NOTE | 2024-08-30 07:22 | PCM.DC.SUM ---
Providers Date of Admission: 08/29/24 Primary Care Physician: No Primary Care Phys Reason For Visit: VAGINAL DELIVERY Diagnosis Discharge Diagnosis (1) (spontaneous vaginal delivery): Status: Acute Code(s): O80 - Encounter for full-term uncomplicated delivery (2) Depression: Status: Acute Code(s): F32.A - Depression, unspecified (3) Care and examination of lactating mother: Status: Acute Code(s): Z39.1 - Encounter for care and examination of lactating mother Medications at Discharge Home Medications vit no.95-ferrous fumarate 28 mg-folic acid 800 mcg tablet () 1 tab PO DAILY 08/25/24 acetaminophen 500 mg tablet 1,000 mg (2 x 500 mg) PO Q6H PRN PRN Pain 1-10 Or Fever #0 tabs 08/30/24 Hospital Course Operations None Procedures None Summary of Care Provided Minutes Spent on Discharge: 15 Hospital Course: Patient had vaginal delivery. Hospital course was uneventful. Physical Exam Narrative Patient seen at bedside. Denies pain. Ambulating and voiding without difficulty. Lochia decreased. Desires discharge home today. Breast feeding and supplementing with formula. Const alert and oriented x3 General Appearance: Negative for in distress HEENT normocephalic Eyes General Eye: normal appearance of both eyes Neck General: normal visual inspection Chest Chest: symmetrical chest wall rise Resp normal respiratory effort and normal air movement Effort and Inspection: symmetric chest movement; Negative for tachypneic Auscultation: clear to auscultation bilaterally Cardio regular rate and regular rhythm Peripheral Pulses: pulses 2+ throughout GI normal to inspection, nondistended, normoactive bowel sounds Narrative: Ice to perineum OB / External & Speculum: vaginal bleeding and other Lochia decreasing Uterus Palpation: uterus fundus firm (Below U) Extremity normal to inspection, full ROM and normal capillary refill Skin no rashes or lesions noted Neuro oriented x3, CN's II-XII intact bilaterally and gait normal Psych mental status grossly normal, thought process normal and activity/motor behavior normal Weight / BMI Weight Weight: 231 lb 3.2 oz Body Mass Index (BMI) 37.3 ABG / Lab / Microbiology Data 08/29/24 05:15 08/29/24 05:15 Laboratory: Laboratory Results - last 24 hr 08/29/24 05:15: Creatinine 0.66, Estim Creat Clear Calc 165.03, Est GFR (MDRD) Af Amer 145, Est GFR (MDRD) Non-Af 120, Uric Acid 3.4, AST 10 L, ALT 16, Blood Type A POSITIVE D/C Instructions Discharge Diet: No restrictions Discharge Activity: Return to Normal Activity, No Restrictions, May Drive, May Shower and May Take a Tub Bath (Warm water only. No bath salts, soaps, bubbles) May resume sexual activity in: 6-8 weeks Weight Bearing Status: Weight bearing as tolerated Call your doctor if you observe: Fever of 101 or Higher, Inability to urinate, Using more than 1 pad per hour, Shortness of breath, Dizziness, Chest pain, Calf discomfort and Uncontrolled pain Please Follow Up With: [facility] Bryce NEGRO When: 2 weeks in office or virtual Meaningful Use Info Meaningful Use Meaningful Use Diagnoses (Choose all that apply): None applicable Ischemic Stroke Statin Dosing Therapy Reference: STATIN DOSE THERAPY REFERENCE: * Patients > 75 years receive moderate or high dose statin therapy. * Patients 75 years or YOUNGER should receive HIGH intensity statin dose unless contraindicated. You will be required to document reason for non-treatment if statin daily dose does not meet guidelines. HIGH DOSE STATIN THERAPY DAILY Atorvastatin > than or = to 40 mg Rosuvastatin > than or = to 20 mg Amlodipine + Atorvastatin > than or = to 2.5/40 mg Ezetimibe + Simvastatin 10/80 mg Simvastatin 80mg Discharge Plan Admission Admit Date/Time: 08/29/24 04:45 Primary Reason for Your Visit: Labor and Delivery Attending Provider: Oneida Mattson Primary Care Provider: Care Physician,Billie Primary Discharge Orders/Prescriptions Prescriptions: New acetaminophen 500 mg Tablet 1,000 mg PO Q6H PRN PRN (Reason: Pain 1-10 Or Fever) Qty: 0 0RF Continued PNV cmb#95-ferrous fumarate-FA [] 28 mg iron- 800 mcg tablet 1 tab PO DAILY Discontinued promethazine [Promethegan] 25 mg suppository 25 mg RECTAL Q6H PRN PRN (Reason: Nausea) Qty: 15 0RF ondansetron 4 mg tablet,disintegrating 4 mg PO Q6H PRN PRN (Reason: Nausea) Qty: 20 0RF pantoprazole [Protonix] [address] for susp in packet 40 mg PO DAILY aspirin 81 mg capsule 81 mg PO DAILY Referrals / Follow Up: Oneida Mattson CNM [Med Staff - Adv Practice Prof] - Care Physician,No Primary [Primary Care Provider] - Disposition Disposition (needs filled in before D/C Order can be placed): Home, Self Care
--- NOTE | 2024-08-30 10:57 | CASEMGMT ---
Social Work Assessment Labor and Delivery Unit Patient Address:[place] [address] Phone number: [phone] Date of Referral: 08/29/24 Time of Referral:?521 Referred By: Dr. Yo Date of Intervention: 08/29?? Time of Intervention:? 939 Reason for Referral:? substance abuse Sw completed chart review and acknowledges social work consult due to maternal substance use. Sw presented to bedside and introduced self to mother of baby (MOB- Luzmaria) and father of baby (FOB- Nikolai Ravieliza). Sw explained reason for sw involvement and completed psychosocial assessment. History obtained from: medical records, MOB and FOB. ?? Household composition: Currently residing in the family home is MOB, YULIANA, NADIA's older son- Ranjit (: 01/25/17) and baby to be added to residence when ready for discharge. Parents deny any issues or concerns with their housing reporting that it is safe and secure and they are not in jeopardy of losing it. Patient's parent/guardian status:? ?MOB and FOB report that they met through mutual friends and have been together for 2 years. This is first baby for FOB, and first child for parents together. No concerns reported of domestic violence or intimate partner violence. Medical History: ?NADIA is 19 year old female who is 2, para 1- now 2 following labor and delivery. NADIA received routine care during with [facility]. NADIA presented to hospital in labor and delivered baby at 40 weeks gestation via vaginal delivery. Baby boy, named Dex Joe, was born weighing 7lb 13 oz with apgars of 8 and9 at one and five minutes of life respectfully. NADIA reports wanting to provide breast milk for baby, but has primarily utilizing formula/ bottles. Baby will be seen by Dr. Posada for pediatrics. Educational Status:?Both parents graduated from high school. NADIA obtained an associates in Child Development. Parents deny any difficulties with reading, learning or comprehension. Financial Status: YULIANA is employed outside of the home working for [employer]. He states that he is able to take some time off of work now that baby is here. 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 Supplies: NADIA states that they have everything they need for baby, including: car seat, safe sleep space, clothes, diapers and wipes. Childcare/Caregiver(s):? MOB will be the primary caregiver to baby. When parents need help with childcare, YULIANA's grandma helps. Transportation:?? Both parents have their drivers license and reliable means of transportation. Programs/Agencies Involved: NADIA is connected to resources through [employer] (insurance- [place], and SNAP), and WIC. ??? Children Services/Legal Issues:???NADIA reports that when her first baby was born she was only 12 years old, so as a result a referral was made to [facility]. MOB states that at that time a worker came to their home and met with her and then closed the case. - Sw informed parents that sw will be making a referral to [facility] due to maternal THC use during . Parents express understanding. - Sw called [facility] and spoke to hotline screenerDerrick. Behavioral Health Issues: ??Mental Health History:?Both parents have history of depression. Both parents also have attempted suicide in their teenage years. NADIA reports that when she was 11 years old she took a whole bottle of Vicodin because she did not want to go to her dads house. Both parents were hospitalized at [facility] for mental health assessment and treatment. Neither parents is prescribed medication to assist with their mental health symptoms at this time. ?? Substance Use History: MOB and YULIANA both admit to smoking marijuana. MOB states that she only smoked during to help with nausea and to help gain weight. MOB states that she lost 50 pounds at beginning of because she was not able to keep anything down. MOB states that she stopped smoking a month ago because she had intentions of breast feeding baby. ?FOStas states that he smokes in their garage- that Ranjit does not have access to- after work and sometimes before bed. Parents deny any other substance use. ? Family History: Parents deny family history of substance use or significant mental health diagnoses. ??? Drug Screens: MOB was positive at time of admission, baby urine was also positive at time of delivery. Meconium still pending. Family/Social Stressors:? Parents deny any issues or concerns at this time. Parents understanding of need for sw to make referral to Children Services. Support Systems: MOB states that her mom is her biggest support. FOB states that his grandma is his biggest support person. Depression/Shaken Baby/Safe Sleeping: Sw educated parents on signs and symptoms of baby blues and mood and anxiety disorders to be mindful of during this period. MOB states that she felt isolated and sad sometimes during . MOB states that she is not alone, FOB is a good support person for her and she states that she is able to open up and talk to FOB about her mental health. FOB states that if MOB were to struggle with her mental health during this period that he would be able to recognize that and would know how to help and support her. Sw educated parents on shaken baby prevention and ABCs of safe sleep, parents express understanding. ASSESSMENT:?MOB and baby admitted following labor and delivery of . MOB with substance use throughout - reportedly to help with nausea and weight gain. MOB states that she stopped using 30 days ago because she had intentions of providing breast milk for baby when he was born. FOB observed to be a strong support person for MOB and was attentive to baby. Both parents were open and talkative to sw during completion of psychosocial assessment. Safe Plan of Care for related to substance use:? MOB states that she does not intent on smoking marijuana now that baby is born. FOB states that he still plans on smoking, he smokes in the garage where baby and 7 years old do not go. MOB will be primary caregiver. PLAN:?? No other services requested or indicated. MOB and baby to be discharged when medically ready. Parents were provided literature regarding: signs and symptoms of baby blues and mood and anxiety disorders, Help Me Grow, shaken baby prevention, ABCs of safe sleep and a list of county resources that are available for them should any needs present themselves. Jake Finney, HAND CANDLE DIPPER, ENTRY LEVEL SALES REPRESENTATIVE
[2024-08-30] MEDS: Senna/Docusate Sodium 1 Tablet PO (11:44)
== END 2024-08-30 17:55 | disposition home or self-care (01) | DRG 807 ==
PROVIDERS: Admitting Provider Obstetrics & Gynecology; Referring Provider Obstetrics & Gynecology; Visit Provider Advanced Practice Midwife
DX: O98.32 Other infections with a predominantly sexual mode of transmission complicating childbirth (principal); Z37.0 Single live birth; O99.344 Other mental disorders complicating childbirth; A74.9 Chlamydial infection, unspecified; F32.A Depression, unspecified; Z79.82 Long term (current) use of aspirin; Z3A.40 40 weeks gestation of pregnancy; O99.824 Streptococcus B carrier state complicating childbirth; B95.1 Streptococcus, group B, as the cause of diseases classified elsewhere
CPT/HCPCS: 59025; 59050; 80307; 82565; 82570; 84156; 84450; 84460; 84550; 85025; 86780; 86850; 86900; 86901; 99221; J7120; G0378; J2405

== ENCOUNTER 2025-04-08 21:32 | Emergency (ER) | payer MEDICAID, SELFPAY ==
[2025-04-08 21:35] VITALS: BP 141/75; PULSE 75; RESP 18; TEMP 36.9; O2SAT 97; BMI 43.4
--- OUTSIDE RECORDS SUMMARY | 2025-04-08 22:23 | XMS RPT_ITS | CCD ---
Author Organization [facility] Inform ion [facility] Care Team Providers Care Tongsman Name Role Phone FROYLAN FREED, DR DUSTY [...] Engle Referring Unavailable DUSTY GALEANO Primary Care UnavailEVIE Torres Referring Unavailable DUSTY GALEANO Primary Care UnavailJOCELYNN Engle Attending Unavailable DUSTY GALEANO Primary [facility] Unavailab DUSTY Leonard Primary Care UnavailEVIE Torres Attending Unavailable JOCELYNN ARAIZA Referring Unavailable DUSTY GALEANO [facility] Unavailab DUSTY Leonard Primary Care UnavailJACKIE Spears Attending Unavailable DUSTY GALEANO [facility] UnavailVALENTINA Laird Attending Unavailable DUSTY GALEANO [facility] UnavailEVIE Torres Referring Unavailable DUSTY GALEANO Primary Care Unavailab VALENTINA Glover Attending Unavailable FROYLAN, [facility] Care Unavailab ONEIDA Armendariz Attending Unavailable EVIE MONTES Attending Unavailable [facility] Primary [facility] Unavailab le FROYLAN, [facility] Unavailab VALENTINA Glover Attending Unavailable [facility] Unavailab EVIE Rivers Referring Unavailable VALENTINA YO Attending Unavailable [facility] Unavailab JACKIE Cruz Referring Unavailable [facility] Care Unavailab JACKIE Cruz Attending Unavailable [facility] Unavailab JACKIE Cruz Attending Unavailable [facility], [facility] Unavailab KAREN Merlos Primary Care UnavailDANAE Tan Referring Unavailable [facility] Unavailab le FROYLAN, [facility] UnavailNALLELY Brock Attending Unavailable [facility] Unavailab EVIE Rivers Attending Unavailable [facility] Unavailab ONEIDA Armendariz Referring Unavailable ONEIDA MATTSON Attending Unavailable EVIE MONTES Attending Unavailable EVIE MONTES Referring Unavailable [facility] Unavailab le FROYLAN, [facility] Unavailab ONEIDA Armendariz Attending Unavailable [facility] Unavailab VALENTINA Glover Referring Unavailable [facility] Unavailab ONEIDA Armendariz Referring Unavailable [facility] Unavailab ONEIDA Armendariz Referring Unavailable ONEIDA MATTSON Attending Unavailable [facility] Care Unavailab le FROYLAN, [facility] Unavailab VALENTINA Glover Attending Unavailable [facility] Unavailab ONEIDA Armendariz Attending Unavailable JOCELYNN ARAIZA Referring Unavailable [facility], [facility] Unavailab le FROYLAN, [facility] Unavailab le FROYLAN, [facility] Care Unavailab JACKIE Cruz Attending Unavailable [facility], [facility] Unavailab ONEIDA Armendariz Attending Unavailable [facility] Care Unavailab ONEIDA Armendariz Attending Unavailable EVIE MONTES Referring Unavailable DUSTY GALEANO Primary Care Unavailab EVIE Rivers Referring Unavailable DUSTY GALEANO Primary Care Unavailab VALENTINA Glover Attending Unavailable Jackie Candelaria Referring Unavailable Froylan, Dusty Primary Care Unavailable Jackie Candelaria Attending Unavailable Froylan, Dusty Primary Care Unavailable Valentina Yo Attending Unavailable Valentina Yo Referring Unavailable Cuauhtemoc Benitez Attending Unavailable Froylan, Dusty Primary Care Unavailable Lukas Peña Attending Unavailable Froylan, Dusty Primary Care Unavailable Dale Sesay Attending Unavailable Froylan, Dusty Primary Care Unavailable Froylan, Dusty Primary Care Unavailable Sree Pereira Attending Unavailable Oneida Mattson Attending Unavailable Care Physician, No Primary Primary Care Unava ilable Valentina Yo Admitting Unavailable Valentina Yo Referring Unavailable ADILIA OHARA DO Attending Unavailable FROYLAN FREED, DR DUSTY Taylor Primary Care Unavailab le Allergies Allergy Classification Reported Allergen(s) Allergy Type Date of Onset Reaction(s) Facility (20 sources) Morphine; Translations: [MORPHINE] Drug Allergy 01-11-2024 GI Upset [facility] (1 source) Morphine Drug Allergy 08-29-2024 [facility] Repository Medications Current Medications Medication Drug Class(es) Dates Sig (Normalized) Sig (Original) ampicillin 500 mg oral capsule (1 source) Penicillin-class Antibacterial Start: 07-05-2024 End: 07-10-2024 take 1 capsule by mouth four times daily ampicillin (PRINCIPEN) 500 mg capsule Take 1 capsule by mouth four times daily for 5 days. 20 capsule 07/05/2024 07/10/2024 Active azithromycin 500 mg oral tablet (5 [...] Comment on above: Take 2 tablets by [facility] one time only for 1 dose. Take 1 Packet by the [facility] one time only for 1 dose. cephalexin [...] on above: Take 1 capsule by mo [facility] four times daily for 7 days. etonogestrel 68 mg drug implant (5 sources) Progestin Start: 10-29-2024 End: 10-29-2027 etonogestrel (NEXPLANON) subdermal implant 68 mg Indications: Insertion of implantable subdermal contraceptive 1 Each by SUBDERMAL route as directed. 1 Each 10/29/2024 10/29/2027 Active Start: 11-05-2018 inject 1 dose by sub cutaneous injection once Nexplanon 68 mg subcutaneous implant Dose : 68 mg = 1 EA, Subcutaneous, Once, 0 Refill(s) Start Date: 11/05/18 Status: Ordered lansoprazole 30 mg delayed release oral capsule (2 sources) Proton Pump Inhibitor Start: 09-20-2021 take 1 capsule by mouth once daily Lansoprazole (Prevacid) 30 mg capsule,delayed release(DR/EC) Active 30 MG PO DAILY September 20, 2021 9:03am metoclopramide 5 mg oral tablet (1 source) Dopamine-2 Receptor Antagonist Start: 10-25-2022 End: 11-08-2022 Reglan 5 mg oral tablet Dose : 5 mg = 1 tab(s), Oral, QID, X 14 day(s), # 56 tab(s), 0 Refill(s), 11/08/22 20:52:00 EST Start Date: 10/25/22 Stop Date: 11/08/22 Status: Ordered [place] (Nk) (1 source) Start: 12-28-2023 [place] (Nk) Active December 28, 2023 12:00am promethazine hydrochloride 25 mg rectal suppository (15 sources) Phenothiazine Start: 01-08-2024 take 25 mg rectal route every six hours as needed Promethazine (Promethegan) 25 mg suppository Active 25 MG RECTAL EVERY 6 HOURS NEEDED January 08, 2024 1:00am Start: 10-09-2019 promethazine 2 5 mg oral tablet Dose : 25 mg [...] Start Date: 10/09/19 Status: Ordered triamcinolone acetonide 0.40065 mg/mg topical ointment (1 source) Corticosteroid Start: 05-03-2024 End: 05-17-2024 triamcinolone (KENALOG) 0.025 % ointment Apply to affected area two times a day for 14 days. 15 g 0 05/03/2024 05/17/2024 Active Completed/Discontinued Medications Medication Drug Class(es) Dates Sig (Normalized) Sig (Original) aspirin 81 mg delayed release oral tablet (20 sources) Platelet Aggregation Inhibitor, Nonsteroidal Anti-inflammatory Drug Start: 05-03-2024 End: 09-12-2024 take 1 tablet by mouth once daily aspirin, enteric coated (ASPIRIN, ENTERIC COATED) 81 mg EC tablet Take 1 tablet by mouth once daily. 30 tablet 4 05/03/2024 09/12/2024 Discontinued (Discontinued by Patient) famotidine 20 mg oral tablet (14 sources) Histamine-2 Receptor Antagonist Start: 03-29-2024 End: 07-26-2024 take 1 tablet by mouth twice daily famotidine (PEPCID) 20 mg tablet Take 1 tablet by mouth two times a day. 60 tablet 1 03/29/2024 07/26/2024 Discontinued (Discontinued by Patient) ibuprofen 600 mg oral tablet (4 sources) Nonsteroidal Anti-inflammatory Drug Start: 03-30-2023 End: 12-28-2023 take 600 mg by mouth every six hours as needed Ibuprofen Discontinued 600 MG PO EVERY 6 HOURS NEEDED March 30, 2023 12:00am December 28, 2023 10:19pm ondansetron 4 mg disintegrating oral tablet (20 sources) Serotonin-3 Receptor Antagonist Start: 01-18-2024 End: 09-12-2024 take 2 tablets by mouth every eight hours as needed ondansetron orally disintegrating (ZOFRAN ODT) 4 mg disintegrating tablet Take 2 tablets by mouth every 8 hours as needed for nausea/vomiting. 90 tablet 3 03/29/2024 09/12/2024 Discontinued (Other) Start: 01-15-2024 End: 01-18-2024 take 1 tablet by mouth every eight hours as needed ondansetron orally disintegrating (ZOFRAN ODT) 4 mg disintegrating tablet Take 1 tablet by mouth every 8 hours as needed for nausea/vomiting. 90 tablet 3 01/15/2024 01/18/2024 Discontinued (Adjust Sig - Block E-Cancel) Start: 01-08-2024 take 4 mg by mouth e very six hours as needed Ondansetron Active 4 MG PO EVERY 6 HOURS NEEDED January 08, 2024 2:34pm Start: 01-05-2024 End: 01-08-2024 take 4 mg by mouth every eight hours as needed Ondansetron Discontinued 4 MG PO EVERY 8 HOURS NEEDED January 05, 2024 1:00am January 08, 2024 2:48pm Start: 01-01-2024 End: 01-15-2024 take 4 mg by mouth every eight hours Ondansetron Hcl Discontinued 4 MG PO Q8H January 05, 2024 1:00am January 08, 2024 2:48pm Start: 03-30-2023 End: 12-28-2023 take 4 mg by mouth every eight hours as needed Ondansetron Discontinued 4 MG PO EVERY 8 HOURS NEEDED March 30, 2023 12:00am December 28, 2023 10:19pm Start: 10-19-2022 take 4 mg by mouth e very six hours Ondansetron Active 4 MG PO EVERY 6 HOURS October 19, 2022 12:00am Start: 09-20-2021 take 4 mg by mouth e very eight hours Ondansetron Active 4 MG PO Q8H March 04, 2022 12:00am Start: 11-05-2018 End: 11-10-2018 Zofran 4 mg [...] (20 sources) Proton Pump Inhibitor Start: 07-26-20 End: 09-12-20 take 1 tablet by mouth once daily pantoprazole DR (PROTONIX) 40 mg tablet Take 1 tablet by mouth once daily. 30 tablet 2 07/26/2024 09/12/2024 Discontinued (Course of therapy completed) Start: 01-25-2024 End: 03-29-2024 take 1 tablet [...] no.95/ferrous fum/folic ac ( ORAL) (20 sources) End: 10-10-2024 take 1 tablet by mouth once daily before mealtime PNV no.95/ferrous fum/folic ac ( ORAL) Take 1 tablet by mouth once daily. 10/10/2024 Discontinued (Discontinued by Patient) take 1 tablet by endy th once [...] oral tablet (20 sources) Phenothiazine Start: 03-29-20 End: 09-12-20 take 1 tablet by mouth every six hours as needed prochlorperazine (COMPAZINE) 10 mg tablet Take 1 tablet by mouth every 6 hours as needed (nausea). 30 tablet 1 03/29/2024 09/12/2024 Discontinued (Discontinued by Patient) Problems Active Problems Problem Classification Problem Date Documented Da te Episodic/Chronic Abdominal pain (12 sources) Abdominal pain; Translations: [Unspecified abdominal pain] 04-07-2023 Episodic Allergic reactions (1 source) Inflammatory dermatosis; Translations: [Irritant contact dermatitis, unspecified cause] 05-03-2024 Episodic Contraceptive and procreative management (1 source) Encounter for initial prescription of implantable subdermal contraceptive; Translations: [Nexplanon insertion] Onset: 10-29-2024 Episodic Fever of unknown origin (1 source) Fever; Translations: [Fever, unspecified] 04-16-2024 Episodic Gastrointestinal hemorrhage (8 sources) Hematemesis; Translations: [Hematemesis] 09-28-2021 Episodic Immunizations and screening for infectious disease (1 source) Vaccination needed; Translations: [Encounter for immunization] 06-28-2024 Episodic Mood disorders (8 sources) Depressive disorder; Translations: [Depression] 03-31-2015 Chronic Other complications of (20 sources) Maternal obesity complicating , childbirth and the puerperium, antepartum; Translations: [Obesity complicating , first trimester] Onset: 01-15-2024 01-15-2024 Chronic Other complications of (20 sources) Obesity; Translations: [Obesity complicating , unspecified trimester] Onset: 01-15-2024 05-03-2024 Chronic Other complications of (1 source) Obesity complicating , third trimester; Translations: [Obesity affecting in third trimester, unspecified obesity type] Onset: 06-28-2024 Chronic Other complications of (2 sources) Vomiting of [...] trimester] Onset: 03-19-2024 Episodic Other complications of (1 source) tachycardia affecting management of mother; Translations: [Maternal care for abnormalities of the heart rate or rhythm, unspecified trimester, not applicable or unspecified] 07-16-2024 Episodic Other complications of (1 source) Decreased movements, third trimester, not applicable or unspecified; Translations: [Decreased movements, third trimester, not applicable or unspecified] Onset: 11-18-2024 Episodic Other gastrointestinal disorders (1 source) Disorder of intestine; Translations: [Other specified diseases of intestine] Onset: 10-25-2022 Episodic Other and delivery including normal (15 sources) Early stage of ; Translations: [Encounter for supervision of normal , unspecified, unspecified trimester] Onset: 12-29-2023 12-29-2023 Episodic Comment on above: System added from do cumentation. Status documented as Yes on Admission Other upper respiratory infections (9 sources) Acute pharyngitis; Translations: [Acute pharyngitis, unspecified] 10-31-2018 Episodic Residual codes; unclassified (2 sources) Gestation [...] 08-26-2024 Episodic Residual codes; unclassified (1 source) 38 weeks gestation of ; Translations: [38 weeks gestation of ] Onset: 08-28-2024 Episodic Unclassified (20 sources) [facility] Education - COMMON Onset: 01-11-2024 01-11-2024 Unclassified (20 sources) Education - [place] Onset: 01-11-2024 01-11-2024 Unclassified (1 source) Other specified diseases and conditions complicating ; Translations: [Other specified diseases and conditions complicating ] Onset: 09-17-2024 Urinary tract infections (8 sources) Urinary tract infectious disease; Translations: [Urinary tract infection, site not specified] 02-26-2016 Episodic Viral infection (13 sources) Viral disease; Translations: [Viral infection, unspecified] 07-28-2022 Episodic Past or Other Problems Problem Classification Problem Date Documented Da te Episodic/Chronic Bacterial infection; unspecified site (19 sources) Bacteria present; Translations: [Streptococcus, group B, as the cause of diseases classified elsewhere] Onset: 05-31-2024 08-02-2024 Episodic Hemorrhage during ; abruptio placenta; placenta previa (7 sources) Hemorrhage in early , unspecified; Translations: [First trimester bleeding] Onset: 2024 12-28-2023 Episodic Nausea and vomiting (20 sources) Nausea and vomiting; Translations: [Nausea with vomiting, unspecified] Onset: 06-09-2016 Resolved: 01-26-2021 10-19-2022 Episodic Other complications of (20 sources) High risk ; Translations: [Supervision of high risk , unspecified, first trimester] Onset: 09-20-2016 Resolved: 01-26-2021 01-15-2024 Episodic Other complications of (20 sources) History of delivery of macrosomal infant; [...] 11-02-2021 Episodic Other complications of (20 sources) Heartburn; Translations: [Other specified related conditions, second trimester] Onset: 07-26-2024 03-29-2024 Episodic Other complications of (2 sources) Supervision of high risk , unspecified, second trimester; Translations: [Supervision of high risk in second trimester] Onset: 04-11-2024 Episodic Other complications of (20 sources) Vomiting [...] in first trimester] Onset: 05-31-2024 Episodic Other complications of (1 source) Supervision of high risk , unspecified, first trimester; Translations: [Encounter for supervision of high risk in first trimester, antepartum] Onset: 01-15-2024 Episodic Other complications of (1 source) Mild hyperemesis gravidarum; Translations: [Mild hyperemesis gravidarum] Onset: 01-22-2024 Episodic Other screening for suspected conditions (not mental disorders or infectious disease) (9 sources) Patient encounter status; Translations: [Encounter for screening for malignant neoplasm of cervix] Onset: 07-29-2024 01-15-2024 Episodic Ovarian cyst (20 sources) Cyst of ovary; Translations: [Unspecified ovarian cyst, right side] Onset: 01-15-2024 12-28-2023 Episodic Residual codes; unclassified (20 sources) Family [...] 03-29-2024 Episodic Residual codes; unclassified (1 source) 27 weeks gestation of ; Translations: [27 weeks gestation of ] Onset: 06-28-2024 Episodic Residual codes; unclassified (1 source) 23 weeks gestation of ; Translations: [23 weeks gestation of ] Onset: 05-31-2024 Episodic Residual codes; unclassified (1 source) 8 [...] Results Test Name Value Interpretation Reference Range Facility CNOVon 10-29-2024 CNOV Office Visit (OBGYWM ) LUZMARIA HEARN ([id number]) 1 F Date Time Provider Department 10/29/24 10:30 AM ONEIDA MATTSON OBGYWM During your visit today, we recorded the following information about you: Blood pressure Weight 114/64 103.9 kg Oneida Mattson APRN.CNM 10/29/2024 10:36 AM Signed Luzmaria is a 19 year old patient who presents for Nexplanon insertion. Patient's last menstrual period was 10/10/2024 (approximate). VITALS: BP 114/64 Wt 229 lb (103.9kg) LMP 10/10/2024 test: negative Nexplanon lot #: [id number] Exp date: 01/03/2027 [facility] [id number] UNIVERSAL PROTOCOL / SAFETY CHECKLIST Procedure to be Performed: Nexplanon Insertion Sign In: A Moment of CARE was completed. Personnel directly involved with the procedure wore the appropriate PPE (Personal Protective Equipment). Patient/Surrogate Stated/Verified: PATIENT VERIFIED(optional for EMERGENT procedures): Patient name, Date of , Relevant allergies, and The intended procedure Time Out Communication: Intended patient and procedure match the source documents. Consent documented and matches the intended procedure. Sign Out: SIGN OUT (optional for EMERGENT procedures): No specimen collected. Oneida Mattson APRN.CNM TECHNIQUE: Patient placed in supine position with left) bent at the elbow and placed over the head. Skin cleansed with betadine. 1mL of 1% lidocaine with 1:100,000 epi injected subQ along insertion site. Nexplanon cruz inserted under sterile technique. After insertion by the provider, the cruz was palpable under the skin by both patient and provider. Steristrips and sterile pressure dressing applied. AANDP: Nexplanon inserted without complications. The patient was instructed to remove the dressing after 24 hours. Advised to use backup contraception for 7 days. Oneida Mattson APRN.[facility] Claudia Ovalles MA 10/29/2024 10:07 AM Signed NEXPLANON PATIENT EDUCATION You may remove dressing in 24 hours. Expect some bruising around insertion site. You may take over the counter pain medication (i.e. Tylenol, motrin, advil, etc) if you have discomfort. Call your provider with excessive bruising or pain. Continue to use condoms for STD prevention. You should use backup contraception for 7 days to prevent . Referring Provider: ONEIDA MATTSON [[id number]] Allergies As of Date: 10/29/2024 Noted Allergy Reaction MORPHINE 01/11/2024 8 - GI Upset Date Reviewed: 10/29/2024 Reviewed by: Claudia Ovalles MA - Fully Assessed Reason for Visit: Nexplanon Insertion [Other] Primary Visit Diagnosis:Nexplanon insertion [Z30.017] Other Visit Diagnosis:Insertion of implantable subdermal contraceptive [Z30.017] Order(s):UA DIP,URINE HCG (POC) [7675667] Order #: [id number]. #:[id number] NEXPLANON INSERTION [[id number]] Order #: [id number] [] etonogestrel subdermal implant 68 mg (NEXPLANON)Disp: Rfl: etonogestrel (NEXPLANON) subdermal implant 68 mg1 Each by SUBDERMAL route as directed.Disp: 1 EachRfl: 0 Prescriptions as of 11/07/2024 - etonogestrel (NEXPLANON) subdermal implant 68 mg 1 Each by SUBDERMAL route as directed. Problem List As Of Date 10/29/2024 Noted Resolved High risk teen [O09.899] 06/09/2016 01/26/2021 History of depression [Z86.59] 06/09/2016 01/26/2021 Quit smoking [Z87.891] 06/09/2016 01/26/2021 Nausea and vomiting during [O21.9] 06/09/2016 01/26/2021 Family history of defects [Z82.79] 06/09/2016 01/26/2021 Rubella non-immune status, antepartum [O09.899,*07/28/2016 01/26/2021 High risk with elevated human chorion*09/20/2016 01/26/2021 Nausea/vomiting in [O21.9] 01/01/2024 Family history of diabetes mellitus [Z83.3] 01/15/2024 History of macrosomia in infant in prior pregna*01/15/2024 Ovarian cyst, right [N83.201] 01/15/2024 Constipation during in first trimeste*01/15/2024 04/22/2024 Obesity in , antepartum [O99.210] 01/15/2024 UTI (urinary tract infection) in , ant*01/17/2024 Chlamydia infection affecting [O98.81*01/17/2024 Heartburn during in third trimester [*07/26/2024 Positive GBS test [B95.1] 07/31/2024 Other instructions from your clinician: NEXPLANON PATIENT EDUCATION You may remove dressing in 24 hours. Expect some bruising around insertion site. You may take over the counter pain medication (i.e. Tylenol, motrin, advil, etc) if you have discomfort. Call your provider with excessive bruising or pain. Continue to use condoms for STD prevention. You should use backup contraception for 7 days to prevent . Prescriptions ordered this encounter Disp Refills Start End ETONOGESTREL 68 MG SUBDERMAL IMPLANT 10/29/2024 11/07/2024 Route: SDRM ETONOGESTREL 68 MG SUBDERMAL IMPLANT 1 Ea* 0 10/29/2024 10/29/2027 Class: In Office (more content not included)... Normal [facility] UA DIP,URINE HCG (POC)on Beta HCG ( test) Ql (U) Negative Negative [facility] Comment on above: Location:[facility], [address], [place], [address] Deputy Editor In Chief (POCT) Internal QC OK [facility] Location:[facility], [address], [place], [address] [facility] POINT OF CARE [facility] AST(SGOT)on 08-29-2024 AST [Catalytic activity/Vol] 10 U/L Low 15-37 [facility] Comment on above: Performed By: #### L 501.1105, L501.1400, L501.4100, L501.4405, L501.0900 #### [facility] [address] [place], [address] Alanine Aminotransferas (SGP T)on 08-29-2024 ALT [Catalytic activity/Vol] 16 U/L Normal 13-56 [facility] Comment on above: Performed By: #### L 501.1105, L501.1400, L501.4100, L501.4405, L501.0900 #### [facility] [address] [place], [address] CBC W/Diff, Automatedon 10-2 Absolute Lymph 3.02 X10 3/uL Normal 0.83-4.51 [facility] Comment on above: Performed By: #### L 501.1105, L501.1400, L501.4100, L501.4405, L501.0900 #### [facility] [address] [place], [address] Absolute Neut 13.7 X10 3/uL High 2.0-7.7 [facility] Comment on above: Performed By: #### L 501.1105, L501.1400, L501.4100, L501.4405, L501.0900 #### [facility] [address] [place], [address] Basophils/100 WBC (Bld) 0.5 % Normal 0-1 [facility] Comment on above: Performed By: #### L 501.1105, L501.1400, L501.4100, L501.4405, L501.0900 #### [facility] [address] [place], [address] Eosinophils/100 WBC (Bld) 1.6 % Normal 0-5 [facility] Comment on above: Performed By: #### L 501.1105, L501.1400, L501.4100, L501.4405, L501.0900 #### [facility] [address] [place], [address] Erythrocyte distribution width (RBC) [Ratio] 12.4 % Normal 11.6-14.6 [facility] Comment on above: Performed By: #### L 501.1105, L501.1400, L501.4100, L501.4405, L501.0900 #### [facility] [address] [place], [address] Hematocrit (Bld) [Volume fraction] 32.8 % Low 37-47 [facility] Comment on above: Performed By: #### L 501.1105, L501.1400, L501.4100, L501.4405, L501.0900 #### [facility] [address] [place], [address] Hemoglobin (Bld) [Mass/Vol] 11.1 g/dL Low 12.0-15.0 [facility] Comment on above: Performed By: #### L 501.1105, L501.1400, L501.4100, L501.4405, L501.0900 #### [facility] [address] [place], [address] IG% 0.900 Normal 0.0-0.9 [facility] Comment on above: Result Comment: IG% - Immature Granulocytes (promyelocytes, myelocytes and metamyelocytes) > 1% indicates that a LEFT SHIFT is Present. Performed By: #### L 501.1105, L501.1400, L501.4100, L501.4405, L501.0900 #### [facility] [address] [place], [address] Lymphocytes/100 WBC (Bld) 16.6 % Low 19-41 [facility] Comment on above: Performed By: #### L 501.1105, L501.1400, L501.4100, L501.4405, L501.0900 #### [facility] [address] [place], [address] MCH (RBC) [Entitic mass] 27.8 pg Normal 27.0-32.0 [facility] Comment on above: Performed By: #### L 501.1105, L501.1400, L501.4100, L501.4405, L501.0900 #### [facility] [address] [place], [address] MCHC (RBC) [Mass/Vol] 33.8 g/dL Normal 32-36 [facility] Comment on above: Performed By: #### L 501.1105, L501.1400, L501.4100, L501.4405, L501.0900 #### [facility] [address] [place], [address] MCV (RBC) [Entitic vol] 82.0 fL Normal 81-99 [facility] Comment on above: Performed By: #### L 501.1105, L501.1400, L501.4100, L501.4405, L501.0900 #### [facility] [address] [place], [address] Monocytes/100 WBC (Bld) 5.3 % Normal 0-10 [facility] Comment on above: Performed By: #### L 501.1105, L501.1400, L501.4100, L501.4405, L501.0900 #### [facility] [address] [place], [address] Neutrophils/100 WBC (Bld) 75.1 % High 47-70 [facility] Comment on above: Performed By: #### L 501.1105, L501.1400, L501.4100, L501.4405, L501.0900 #### [facility] [address] [place], [address] Nucleated RBC (Bld) [#/Vol] 0 10*3/uL Normal 0-5 [facility] Comment on above: Performed By: #### L 501.1105, L501.1400, L501.4100, L501.4405, L501.0900 #### [facility] [address] [place], [address] Platelet mean volume (Bld) [Entitic vol] 10.0 fL Normal 6.2-12.0 [facility] Comment on above: Performed By: #### L 501.1105, L501.1400, L501.4100, L501.4405, L501.0900 #### [facility] [address] [place], [address] Platelets (Bld) [#/Vol] 322 10*3/uL Normal 150-450 [facility] Comment on above: Performed By: #### L 501.1105, L501.1400, L501.4100, L501.4405, L501.0900 #### [facility] [address] [place], [address] RBC (Bld) [#/Vol] 4.00 10*6/uL Low 4.2-5.4 [facility] Comment on above: Performed By: #### L 501.1105, L501.1400, L501.4100, L501.4405, L501.0900 #### [facility] [address] 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 Few contractions Maternal Data Information Final JOSE J: 08/25/24 Gestational age: 40+4 PFSH PFSH Medical History (Updated 08/29/24 @ 07:[address] Valentina Yo MD) Depression Chlamydia infection affecting Cyst of right ovary Home Medications ???Medication ???Instructions ???Recorded ???Last Taken ???Type ondansetron 4 mg disintegrating 4 mg PO Q6H PRN PRN Nausea #20 tabs 01/08/24 08/28/24 Rx tablet promethazine 25 mg rectal 25 mg RECTAL Q6H PRN PRN Nausea 01/08/24 Unknown Rx suppository (Promethegan) ##15 aspirin 81 mg capsule 81 mg PO DAILY 08/25/24 Unknown History pantoprazole 40 mg granules 40 mg PO DAILY INDIGE 08/25/24 Unknown History delayed-release for susp in packet (Protonix) vit no.95-ferrous 1 tab PO DAILY 08/25/24 08/28/24 History fumarate 28 mg-folic acid 800 mcg tablet () Allergy/AdvReac Type Severity Reaction Status Date / Time morphine AdvReac Vomiting Verified 08/29/24 05:15 Surgical History History of cholecystectomy Social History Smoking Status: Never smoker History 2 Elective abortions Hx Para 1 Spontaneous abortions Hx # Term Pregnancies Ectopic pregnancies Hx # Pregnancies Multiple births # of living children NST FHR Rate Baby A Baseline: 135 Variability:: Moderate Accelerations:: 15 x 15 Decelerations:: None NST Reactive:: Yes FHR Category:: Category I Uterine Activity:: irregular ROS Constitutional Constitutional: Denies fatigue, fever(s) or malaise Eyes Eyes: Denies change in vision ENT HEENT: Denies dizziness or headache(s) Cardiovascular Cardiovascular: Denies chest pain, dyspnea or lightheadedness Respiratory/Chest Respiratory/Chest: Denies cough or dyspnea Gastrointestinal Gastrointestinal: Denies change in bowel habits Genitourinary Genitourinary: Denies burning urination or genital lesions Integumentary Integumentary: Denies rash Neurologic Neurologic: Denies confusion, dizziness, headache(s), numbness or weakness Vital Signs Vital Signs Vital Signs: 08/29/24 05:12 08/29/24 05:12 08/29/24 05:12 Temperature Temperature Source Pulse Rate 80 Blood Pressure 141/95 H BP Systolic 141 BP Diastolic 95 Pulse Ox 97 08/29/24 05:12 08/29/24 05:12 08/29/24 05:32 Temperature 97.3 F L Temperature Source Temporal Pulse Rate Blood Pressure 142/79 H BP Systolic 142 BP Diastolic 79 Pulse Ox 08/29/24 05:32 Temperature Temperature Source Pulse Rate 90 Blood Pressure BP Systolic BP Diastolic Pulse Ox Weight Weight: 104.871 kg Body Mass Index (BMI) 37.3 Physical Exam Const alert and no apparent distress General Appearance: cooperative HEENT normocephalic Resp normal respiratory effort Cardio regular rate GI soft to palpation GI Narrative: gravid, nontender, appropriate for gestational age Extremity no calf tenderness General Extremity: edema Skin no wounds Rashes: No rashes noted Psych activity/motor behavior normal Labs Labs Labs: Blood Type A POSITIVE Antibody Screen NEGATIVE Hct 32.8 % (37-47) L Hgb 11.1 g/dL (12.0-15.0) L Obstetrics Ultrasound Syphilis Total Ab Non-reactive Rhogam given: No Assessment Plan (1) SROM (spontaneous rupture of membranes): (2) Positive GBS test: (3) 40 weeks gestation of : PLAN: Plan PCN prophylaxis Pit prn Epidural prn 08/29/24 0710 Cosigner Signature (if applicable): CC: Dr. Valentina Yo MD; No Primary Care Physician Signed [facility] [id number] 08-29-2024 Syphilis Abs Non-Reactive [facility] Comment on above: Performed By: #### L 501.1105, L501.1400, L501.4100, L501.4405, L501.0900 #### [facility] [address] [place], [address] [facility] Medical Records Department [address] [place] [address] OB VAGINAL DELIVERY 08/29/24 1516 MR#: [id number] Acct: [id number] Name: LUZMARIA HEARN Rep #: [id number] : 2005 19 From: Oneida Mattson CNM PCP: Care Physician,No Primary Status:ADM IN Location: [id number] Assessment Plan (1) (spontaneous vaginal delivery): (2) Depression: COMMENT: history of suicidal ideation as a child (3) Chlamydia infection affecting : (4) Positive GBS test: Maternal Data Information JOSE J Calculator Estimated Delivery Date Method Current WG Current Estimate 08/24/24 Manual 40w 5d Vaginal Delivery Maternal Presentation Maternal Presentation: Spontaneous Rupture of Membranes Type of Induction: Pitocin (Augmentation) Vaginal Delivery Information Procedure Performed: Spontaneous Vaginal Delivery Date of Procedure: 08/29/24 Pre-Procedure Diagnosis: Term gestation, Spontaneous rupture of membranes Post-Procedure Diagnosis: , Live male Type of anesthesia: Epidural Estimated Blood Loss: 200 Time of Delivery: 15:04 Findings Description of procedure: Called to patient's room for feeling pressure and wanting to push. With minimal maternal effort, head delivered over intact perineum followed by anterior shoulder and remainder of body without traction. Vigorous male placed on maternal abdomen and was attended to by nursing staff. Pitocin IV started for active management of the third stage of labor. 3 vessel cord clamped and cut by patient's mother after delay. Placenta delivered spontaneously and intact. Vaginal sweep completed. Vagina and perineum intact. Fundus firm and 2 below U. Hemostasis obtained. Patient and bonding well at this time. Presentation: Vertex Amniotic Membrane Rupture Type: Spontaneous Amniotic Fluid Description: Clear Placental Delivery Description: Spontaneous Placenta Disposition: [facility] Specimen collected: No Cord Vessel Description: 3 Vessels Cord Entanglement: None A Gender: Male (1 minute): 8 (5 minute): 9 Delayed Cord Clamping: Yes [employer] Gatherer night warehouse manager: No Post Vaginal Deli Medications given after delivery: IV Pitocin Episiotomy Description: None Laceration: None Complication Complications: No 08/29/24 1527 Cosigner Signature (if applicable): CC: JUDY Mattson; Dr. Valentina Yo MD; No Primary Care Physician Signed Normal [facility] Protein+Creatinine Ratio,Uri neon 08-29-2024 PROT:CRE RATIO 527 mg/g CRE High 0-200 [facility] Comment on above: Performed By: #### L 501.1105, L501.1400, L501.4100, L501.4405, L501.0900 #### [facility] [address] [place], [address] Protein (U) [Mass/Vol] 50.7 mg/dL High <11.9 [facility] Comment on above: Performed By: #### L 501.1105, L501.1400, L501.4100, L501.4405, L501.0900 #### [facility] [address] [place], [address] UR CREAT 96.20 mg/dL Normal NO RANGE EST. [facility] Comment on above: Performed By: #### L 501.1105, L501.1400, L501.4100, L501.4405, L501.0900 #### [facility] [address] [place], [address] Serum Creatinine AND GFRon 1 0- Creatinine [Mass/Vol] 0.66 mg/dL Normal 0.55-1.02 [facility] Comment on above: Result Comment: The validity of the calculated GFR GFRAA in patients over 70 years has not been determined. Clinical correlation is essential. Performed By: #### L 501.1105, L501.1400, L501.4100, L501.4405, L501.0900 #### [facility] [address] [place], [address] ECRCL 165.03 ml/min Normal [facility] Comment on above: Performed By: #### L 501.1105, L501.1400, L501.4100, L501.4405, L501.0900 #### [facility] [address] [place], [address] EST GFR - AA 145 mL/min Normal >60 [facility] Comment on above: Result Comment: Afri can Kenyan GFR Calc Performed By: #### L 501.1105, L501.1400, L501.4100, L501.4405, L501.0900 #### [facility] [address] [place], [address] GFR/1.73 sq M.predicted among non-blacks MDRD (S/P/Bld) [Vol rate/Area] 120 mL/min/{1.73_m2} Normal >60 [facility] Comment on above: Result Comment: Non- GFR Calc Performed By: #### L 501.1105, L501.1400, L501.4100, L501.4405, L501.0900 #### [facility] [address] [place], [address] Type AND Screenon 08-29-2024 ABO and Rh group Nom (Bld) Blood group A Rh(D) positive Normal [facility] Comment on above: Order Comment: Labor Performed By: #### L 501.1105, L501.1400, L501.4100, L501.4405, L501.0900 #### [facility] [address] [place], [address] Uric Acidon 08-29-2024 URIC 3.4 mg/dL Normal 2.6-6.0 [facility] Comment on above: Result Comment: The drugs N-Acetylcysteine and Metamizole may falsely depress this assay. Performed By: #### L 501.1105, L501.1400, L501.4100, L501.4405, L501.0900 #### [facility] [address] [place], [place], [address] [phone] Urine Drug Screen (VISTA)on 08-29-2024 AMPHETAMINES Normal <1000 ng/mL [facility] Comment on above: Result Comment: @OK TO CANCEL PER TRES - DUPLICATE ORDER Performed By: #### L 501.1105, L501.1400, L501.4100, L501.4405, L501.0900 #### [facility] [address] [place], [address] BARBITIURATES Normal < 200 ng/mL [facility] Comment on above: Result Comment: @OK TO CANCEL PER TRES - DUPLICATE ORDER Performed By: #### L 501.1105, L501.1400, L501.4100, L501.4405, L501.0900 #### [facility] [address] [place], [address] BENZODIAZIPINE Normal < 200 ng/mL [facility] Comment on above: Result Comment: @OK TO CANCEL PER TRES - DUPLICATE ORDER Performed By: #### L 501.1105, L501.1400, L501.4100, L501.4405, L501.0900 #### [facility] [address] [place], [address] COCAINE Normal < 300 ng/mL [facility] Comment on above: Result Comment: @OK TO CANCEL PER TRES - DUPLICATE ORDER Performed By: #### L 501.1105, L501.1400, L501.4100, L501.4405, L501.0900 #### [facility] [address] [place], [address] DRUG CONFIRM Normal [facility] Comment on above: Result Comment: @OK TO CANCEL PER TRES - DUPLICATE ORDER Performed By: #### L 501.1105, L501.1400, L501.4100, L501.4405, L501.0900 #### [facility] [place], [facility] ECSTACY Normal < 500 ng/mL [facility] Comment on above: Result Comment: @OK TO CANCEL PER TRES - DUPLICATE ORDER Performed By: #### L 501.1105, L501.1400, L501.4100, L501.4405, L501.0900 #### [facility] [address] [place], [facility] METHADONE Normal < 300 ng/mL [facility] Comment on above: Result Comment: @OK TO CANCEL PER TRES - DUPLICATE ORDER Performed By: #### L 501.1105, L501.1400, L501.4100, L501.4405, L501.0900 #### [facility] [address] [place], [facility] OPIATES Normal < 300 ng/mL [facility] Comment on above: Result Comment: @OK TO CANCEL PER TRES - DUPLICATE ORDER Performed By: #### L 501.1105, L501.1400, L501.4100, L501.4405, L501.0900 #### [facility] [address] [place], [address] PCP Normal < 25 ng/mL [facility] Comment on above: Result Comment: @OK TO CANCEL PER TRES - DUPLICATE ORDER Performed By: #### L 501.1105, L501.1400, L501.4100, L501.4405, L501.0900 #### [facility] [address] [place], [address] THC Normal < 50 ng/mL [facility] Comment on above: Result Comment: @OK TO CANCEL PER TRES - DUPLICATE ORDER Performed By: #### L 501.1105, L501.1400, L501.4100, L501.4405, L501.0900 #### [facility] [address] [place], [address] VISTA UDS PH Normal [facility] Comment on above: Result Comment: @OK TO CANCEL PER TRES - DUPLICATE ORDER Performed By: #### L 501.1105, L501.1400, L501.4100, L501.4405, L501.0900 #### [facility] [address] [place], [address] AMPHETAMINES Negative Normal <1000 ng/mL [facility] Comment on above: Performed By: #### L 501.1105, L501.1400, L501.4100, L501.4405, L501.0900 #### [facility] [address] [place], [address] BARBITIURATES Negative Normal < 200 ng/mL [facility] Comment on above: Performed By: #### L 501.1105, L501.1400, L501.4100, L501.4405, L501.0900 #### [facility] [address] [place], [address] BENZODIAZIPINE Negative Normal < 200 ng/mL [facility] Comment on above: Performed By: #### L 501.1105, L501.1400, L501.4100, L501.4405, L501.0900 #### [facility] [address] [place], [address] COCAINE Negative Normal < 300 ng/mL [facility] Comment on above: Performed By: #### L 501.1105, L501.1400, L501.4100, L501.4405, L501.0900 #### [facility] [address] [place], [address] ECSTACY Negative Normal < 500 ng/mL [facility] Comment on above: Performed By: #### L 501.1105, L501.1400, L501.4100, L501.4405, L501.0900 #### [facility] [address] [place], [address] METHADONE Negative Normal < 300 ng/mL [facility] Comment on above: Performed By: #### L 501.1105, L501.1400, L501.4100, L501.4405, L501.0900 #### [facility] [address] [place], [address] OPIATES Negative Normal < 300 ng/mL [facility] Comment on above: Performed By: #### L 501.1105, L501.1400, L501.4100, L501.4405, L501.0900 #### [facility] [address] [place], [address] PCP Negative Normal < 25 ng/mL [facility] Comment on above: Performed By: #### L 501.1105, L501.1400, L501.4100, L501.4405, L501.0900 #### [facility] [address] [place], [address] THC Positive Abnormal < 50 ng/mL [facility] Comment on above: Performed By: #### L 501.1105, L501.1400, L501.4100, L501.4405, L501.0900 #### [facility] [address] [place], [address] VISTA UDS PH 5 Normal [facility] Comment on above: Performed By: #### L 501.1105, L501.1400, L501.4100, L501.4405, L501.0900 #### [facility] [address] [place], [address] CNCOon 08-28-2024 CNCO Letter Text Normal [facility] URINE OB DIP B/Oon Glucose Ql (U) Negative Neg mg/dL [facility] Interpretation and review of laboratory results Normal [facility] Protein.monoclonal (U) [Mass/Vol] Negative Neg mg/dL [facility] CNPNon 08-26-2024 CNPN Telephone ([id number]) LUZMARIA HEARN ([id number]) 1 F Date Time Provider Department 08/26/24 VALENTINA WEINSTEIN [id number] During your visit today, we recorded the following information about you: Valentina Weinstein RN 08/26/2024 11:53 AM Signed 1st and final risk assessment form submitted 08/26/2024. 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 Telephone (OBGYWM) LUZMARIA HEARN ([id number]) 1 F Date Time Provider Department 08/26/24 JACKIE CANDELARIA During your visit today, we recorded the following information about you: Angela George RN 08/26/2024 12:47 PM Signed 40w2d Calling c/o bloody show. Noticed each time with wiping since she left [facility] last night (went in with contractions, but was discharged home). Blood is mixed with mucous and only noticing with wiping. Not needing to wear pad with it. Advised this can be normal especially after cervical exam like she had last night in [facility]. She just woke up since she was at [facility] so late and hasn't noticed movement yet. Advised to do kick counts and call if she does not get the 10 movements, or she notices regular contractions, bleeding or leaking fluid. She is wanting to know if there is a plan for her induction to be rescheduled? She was supposed to get it done on Monday, but was postponed all weekend because [facility] was busy. SAFIA Dutton Jessica, MICHELLE.SHAMIKA 08/26/2024 1:33 PM Signed Please have patient schedule appt for Sparkle Estrada RN 08/26/2024 2:17 PM Signed 2 more bloody shows since last call-last one looked like mucous plug Not cramping as much Contractions [id number], lasting 30-60 seconds long. Not as intense [...] Status:Closed by SPARKLE ESTRADA on 08/26/24 Normal [facility] OB Triage Physician Noteon 1 OB Triage Physician Note [facility] Medical Records Department [address] [place] [address] OB Triage Physician Note 08/26/24 0712 MR#: [id number] Acct: [id number] Name: LUZMARIA HEARN Rep #: [id number] : 2005 19 From: Valentina Yo MD PCP: Dr. Dusty Galeano MD Status:DEP CLI Y Location: [facility] HPI - General General Date of Admission: 08/25/24 Date of Service: 08/26/24 Chief Complaint: pelvic pressure HPI Narrative LUZMARIA HEARN, is a 19 F who presents pelvic pressure and back pain. No LOF or bleeding. Good movement 2 [facility] Maternal Data Information Final JOSE J: 08/24/24 Gestational age: 40+1 PFSH PFSH Medical History (Updated 08/26/24 @ 07:[address] Valentina Yo MD) Cyst of right ovary Home Medications ???Medication ???Instructions ???Recorded ???Last Taken ???Type ondansetron 4 mg disintegrating 4 mg PO Q6H PRN PRN Nausea #20 tabs 01/08/24 Unknown Rx tablet promethazine 25 mg rectal 25 mg RECTAL Q6H PRN PRN Nausea 01/08/24 Unknown Rx suppository (Promethegan) ##15 aspirin 81 mg capsule 81 mg PO DAILY 08/25/24 Unknown History pantoprazole 40 mg granules 40 mg PO DAILY 08/25/24 Unknown History delayed-release for susp in packet (Protonix) vit no.95-ferrous 1 tab PO DAILY 08/25/24 Unknown History fumarate 28 mg-folic acid 800 mcg tablet () Allergy/AdvReac Type Severity Reaction Status Date / Time morphine AdvReac Vomiting Verified 08/26/24 03:20 Surgical History History of cholecystectomy Social History Smoking Status: Never smoker History Elective abortions Hx Para 1 Spontaneous abortions Hx # Term Pregnancies Ectopic pregnancies Hx # Pregnancies Multiple births # of living children NST FHR Rate Baby A Baseline: 120 Variability:: Moderate Accelerations:: 15 x 15 Decelerations:: None NST Reactive:: Yes FHR Category:: Category I Uterine Activity:: Irregular Assessment Plan (1) Pelvic pressure in , antepartum: (2) 40 weeks gestation of : PLAN: Plan No cervical change with multiple exams. Discharged home 08/26/24714 Date Valentina Yo MD Cosigner Signature (if applicable): Date CC: Dr. Valentina Yo MD; Dr. Dusty Galeano MD Signed Normal [facility] URINE OB DIP B/Oon Glucose Ql (U) Negative Neg mg/dL [facility] Interpretation and review of laboratory results Normal [facility] Protein.monoclonal (U) [Mass/Vol] Negative Neg mg/dL [facility] CNPNon 08-23-2024 CNPN Telephone (LARRY) LUZMARIA HEARN ([id number]) 1 F Date Time Provider Department 08/23/24 ONEIDA MATTSON During your visit today, we recorded the following information about you: Angela George, SAFIA 08/23/2024 2:12 PM Signed Breast pump order received from [address] Order to CP to sign. SAFIA Dutton Trisha, RN 08/29/2024 3:14 PM Signed Order signed and faxed. Angela George RN Allergies As of Date: 08/23/2024 Noted Allergy Reaction MORPHINE 01/11/2024 8 - GI Upset Date Reviewed: 08/22/2024 Reviewed by: Nallely Romero MD - Fully Assessed Reason for Visit: Breast Pump [Other] Prescriptions as of 08/29/2024 - pantoprazole DR (PROTONIX) 40 mg tablet [...] 07/31/2024 Encounter Status:Closed by ANGELA GEORGE on 08/29/24 [facility] Telephone (OBGYWM) LUZMARIA HEARN ([id number]) 1 F Date Time Provider Department 08/23/24 VALENTINA YO During your visit today, we recorded the following information about you: Valentina Falcon RN 08/23/2024 8:17 AM Signed 39w6d Patient was scheduled this AM for an induction, but [facility]AND[facility] is too full at this time. Patient was told to call the office about rescheduling. SAFIA Thomas Jennifer, RN 08/23/2024 9:08 AM Signed Patient sent a [facility] [employer] message after calling in to the office [...] Status:Closed by ANGELA GEORGE on 08/23/24 Normal [facility] URINE OB DIP B/Oon Glucose Ql (U) Negative Neg mg/dL [facility] Interpretation and review of laboratory results Normal [facility] Protein.monoclonal (U) [Mass/Vol] trace Neg mg/dL [facility] URINE OB DIP B/Oon 4 Glucose Ql (U) Negative Neg mg/dL [facility] Protein.monoclonal (U) [Mass/Vol] Negative Neg mg/dL [facility] URINE OB DIP B/Oon 4 Glucose Ql (U) Negative Neg mg/dL [facility] Interpretation and review of laboratory results Normal [facility] Protein.monoclonal (U) [Mass/Vol] Negative Neg mg/dL [facility] CNCOon 07-29-2024 CNCO Letter Text Normal [facility] Examination level ultrasound on 07-29-2024 [facility] Radiology Study observation (narrative) [facility] ROUTINE, GROUP B ST REP PCRon 07-26-2024 ROUTINE, GROUP B STREP PCR GROUP B STREP PCR: Positive for Group B Streptococcus by PCR. Abnormal [facility] Comment on above: Performed By: #### G BPCR ####[facility] LABCLIA [id number] [address] STATES OF [facility] URINE OB DIP B/Oon 4 Glucose Ql (U) Negative Neg mg/dL [facility] Interpretation and review of laboratory results Normal [facility] Protein.monoclonal (U) [Mass/Vol] Negative Neg mg/dL [facility] URINE OB DIP B/Oon 4 Glucose Ql (U) Negative Neg mg/dL [facility] Interpretation and review of laboratory results Normal [facility] Protein.monoclonal (U) [Mass/Vol] Negative Neg mg/dL [facility] Urine Cultureon 07-05-2024 [facility] Streptococcus agalactiae (B) Ilfeld Count 80,000-100,000 Streptococcus agalactiae (B): REACTION Ampicillin Islt NIKKI <=0.25 S Penicillin G Islt NIKKI <=0.06 S cefTRIAXone Islt NIKKI <=0.12 S Clindamycin Islt NIKKI <=0.25 S Clindamycin.induced Susc Islt NEG Linezolid Islt NIKKI <=2 S Vancomycin Islt NIKKI 0.5 S Normal [facility] Comment on above: Performed By: #### L 501.1105, L501.1400, L501.4100, L501.4405, L501.0900 #### [facility] [address] [place], [address] [facility] 07-03-2024 CNPN Telephone (OBGYWM) LUZMARIA HEARN ([id number]) 1 F Date Time Provider Department 07/03/24 JACKIE CANDELARIA OBGYWNeno During your visit today, we recorded the following information about you: Jackie Candelaria APRN.CNM 07/03/2024 3:15 PM Signed Patient seen in [facility] on 06/28/24. Urine culture returned positive but no sensitivity yet. Can you please follow up with provider after results for treatment due to symptoms and colony count. JUNO Villaivcencio Tara, RN 07/03/2024 3:23 PM Signed Lab called and states will fax results. SAFIA Quiros Tara, RN 07/03/2024 3:53 PM Signed Lab faxed records from Pt seen in [facility] on 07/01/24. Urine sensitivity still pending at this time. Please keep phone note open for follow-up. SAFIA Quiros Jennifer, RN 07/05/2024 9:44 AM Signed Scan on 07/05/2024 9:07 AM by Provider, External, GELYC: Urine Oneida Mattson APRN.CNM 07/05/2024 9:59 AM Signed Reviewed. Rx sent for Ampicillin 500 mg PO every 6 hours x 5 days.. Please notify patient. JUNO Saucedo Lindsey, RN 07/05/2024 10:25 AM Signed Patient notified of results, verbalizes understanding of instructions. Cielo Leigh RN Allergies As of Date: 07/03/2024 Noted [...] Status:Closed by ONEIDA MATTSON on 07/05/24 Normal [facility] Amylaseon 07-01-2024 CRYSTAL 32 U/L Normal 25-115 [facility] Comment on above: Performed By: #### L 501.1105, L501.1400, L501.4100, L501.4405, L501.0900 #### [facility] [address] [place], [address] CBC W/Diff, Automatedon 06-07 Absolute Lymph 2.45 X10 3/uL Normal 0.83-4.51 [facility] Comment on above: Performed By: #### L 100.0100 #### [facility] [address] [place], [address] Absolute Neut 11.8 X10 3/uL High 2.0-7.7 [facility] Comment on above: Performed By: #### L 100.0100 #### [facility] [address] [place], [address] Basophils/100 WBC (Bld) 0.4 % Normal 0-1 [facility] Comment on above: Performed By: #### L 100.0100 #### [facility] [address] [facility] [place], [address] Eosinophils/100 WBC (Bld) 1.8 % Normal 0-5 [facility] Comment on above: Performed By: #### L 100.0100 #### [facility] [address] [place], [address] Erythrocyte distribution width (RBC) [Ratio] 12.1 % Normal 11.6-14.6 [facility] Comment on above: Performed By: #### L 100.0100 #### [facility] [address] [place], [address] Hematocrit (Bld) [Volume fraction] 33.7 % Low 37-47 [facility] Comment on above: Performed By: #### L 100.0100 #### [facility] [address] [place], [address] Hemoglobin (Bld) [Mass/Vol] 11.4 g/dL Low 12.0-15.0 [facility] Comment on above: Performed By: #### L 100.0100 #### [facility] [address] [place], [address] IG% 1.100 High 0.0-0.9 [facility] Comment on above: Result Comment: IG% - Immature Granulocytes (promyelocytes, myelocytes and metamyelocytes) > 1% indicates that a LEFT SHIFT is Present. Performed By: #### L 100.0100 #### [facility] [address] [place], [address] Lymphocytes/100 WBC (Bld) 15.5 % Low 19-41 [facility] Comment on above: Performed By: #### L 100.0100 #### [facility] [address] [place], [address] MCH (RBC) [Entitic mass] 29.4 pg Normal 27.0-32.0 [facility] Comment on above: Performed By: #### L 100.0100 #### [facility] [address] [place], [address] MCHC (RBC) [Mass/Vol] 33.8 g/dL Normal 32-36 [facility] Comment on above: Performed By: #### L 100.0100 #### [facility] [address] [place], [address] MCV (RBC) [Entitic vol] 86.9 fL Normal 81-99 [facility] Comment on above: Performed By: #### L 100.0100 #### [facility] [address] [place], [address] Monocytes/100 WBC (Bld) 6.4 % Normal 0-10 [facility] Comment on above: Performed By: #### L 100.0100 #### [facility] [address] [place], [address] Neutrophils/100 WBC (Bld) 74.8 % High 47-70 [facility] Comment on above: Performed By: #### L 100.0100 #### [facility] [address] [place], [address] Nucleated RBC (Bld) [#/Vol] 0 10*3/uL Normal 0-5 [facility] Comment on above: Performed By: #### L 100.0100 #### [facility] [address] [place], [address] Platelet mean volume (Bld) [Entitic vol] 9.4 fL Normal 6.2-12.0 [facility] Comment on above: Performed By: #### L 100.0100 #### [facility] [address] [place], [address] Platelets (Bld) [#/Vol] 336 10*3/uL Normal 150-450 [facility] Comment on above: Performed By: #### L 100.0100 #### [facility] [address] [place], [address] RBC (Bld) [#/Vol] 3.88 10*6/uL Low 4.2-5.4 [facility] Comment on above: Performed By: #### L 100.0100 #### [facility] [address] [place], [address] RDW SD 38.6 fl Normal 35.1-43.9 [facility] Comment on above: Performed By: #### L 100.0100 #### [facility] [address] [place], [address] WBC (Bld) [#/Vol] 15.8 10*3/uL High 4.4-11.0 [facility] Comment on above: Performed By: #### L 100.0100 #### [facility] [address] [place], [address] Comprehensive Metabolic Prof [facility] 07-01-2024 Albumin [Mass/Vol] 2.4 g/dL Low 3.2-5.0 [facility] Comment on above: Performed By: #### L 501.1105, L501.1400, L501.4100, L501.4405, L501.0900 #### [facility] [address] [place], [address] Albumin/Globulin [Mass ratio] 0.5 {ratio} Low 0.9-2.4 [facility] Comment on above: Performed By: #### L 501.1105, L501.1400, L501.4100, L501.4405, L501.0900 #### [facility] [address] [place], [address] ALK P 110 U/L Normal 45-117 [facility] Comment on above: Performed By: #### L 501.1105, L501.1400, L501.4100, L501.4405, L501.0900 #### [facility] [address] [place], [address] ALT [Catalytic activity/Vol] 18 U/L Normal 13-56 [facility] Comment on above: Performed By: #### L 501.1105, L501.1400, L501.4100, L501.4405, L501.0900 #### [facility] [address] [place], [address] AST [Catalytic activity/Vol] 12 U/L Low 15-37 [facility] Comment on above: Performed By: #### L 501.1105, L501.1400, L501.4100, L501.4405, L501.0900 #### [facility] [address] [place], [address] Bilirubin [Mass/Vol] 0.10 mg/dL Low 0.20-1.00 [facility] Comment on above: Result Comment: For patients on eltrombopag therapy, use of Dimension [place] TBIL is not recommended. Performed By: #### L 501.1105, L501.1400, L501.4100, L501.4405, L501.0900 #### [facility] [address] [place], [address] BUN/CRE 12.6 RATIO Normal 10-20 [facility] Comment on above: Performed By: #### L 501.1105, L501.1400, L501.4100, L501.4405, L501.0900 #### [facility] [address] [place], [address] CA,Total 9.0 mg/dL Normal 8.5-10.1 [facility] Comment on above: Performed By: #### L 501.1105, L501.1400, L501.4100, L501.4405, L501.0900 #### [facility] [address] [place], [address] Chloride [Moles/Vol] 107 mmol/L Normal 98-107 [facility] Comment on above: Performed By: #### L 501.1105, L501.1400, L501.4100, L501.4405, L501.0900 #### [facility] [address] [place], [address] CO2 [Moles/Vol] 21.0 mmol/L Normal 21.0-32.0 [facility] Comment on above: Performed By: #### L 501.1105, L501.1400, L501.4100, L501.4405, L501.0900 #### [facility] [address] [place], [address] Creatinine [Mass/Vol] 0.48 mg/dL Low 0.55-1.02 [facility] Comment on above: Result Comment: The validity of the calculated GFR GFRAA in patients over 70 years has not been determined. Clinical correlation is essential. Performed By: #### L 501.1105, L501.1400, L501.4100, L501.4405, L501.0900 #### [facility] [address] [place], [address] ECRCL 215.22 ml/min Normal [facility] Comment on above: Performed By: #### L 501.1105, L501.1400, L501.4100, L501.4405, L501.0900 #### [facility] [address] [place], [address] EST GFR - AA 212 mL/min Normal >60 [facility] Comment on above: Result Comment: Afri can Kenyan GFR Calc Performed By: #### L 501.1105, L501.1400, L501.4100, L501.4405, L501.0900 #### [facility] [address] [place], [address] GAP 9 Normal 5-15 [facility] Comment on above: Performed By: #### L 501.1105, L501.1400, L501.4100, L501.4405, L501.0900 #### [facility] [address] [place], [address] GFR/1.73 sq M.predicted among non-blacks MDRD (S/P/Bld) [Vol rate/Area] 175 mL/min/{1.73_m2} Normal >60 [facility] Comment on above: Result Comment: Non- GFR Calc Performed By: #### L 501.1105, L501.1400, L501.4100, L501.4405, L501.0900 #### [facility] [address] [place], [address] Globulin (S) [Mass/Vol] 4.4 g/dL High 2.2-4.2 [facility] Comment on above: Performed By: #### L 501.1105, L501.1400, L501.4100, L501.4405, L501.0900 #### [facility] [address] [place], [address] Glucose [Mass/Vol] 89 mg/dL Normal 74-106 [facility] Comment on above: Performed By: #### L 501.1105, L501.1400, L501.4100, L501.4405, L501.0900 #### [facility] [address] [place], [address] Potassium [Moles/Vol] 3.8 mmol/L Normal 3.5-5.1 [facility] Comment on above: Performed By: #### L 501.1105, L501.1400, L501.4100, L501.4405, L501.0900 #### [facility] [address] [place], [address] Sodium [Moles/Vol] 137 mmol/L Normal 136-145 [facility] Comment on above: Performed By: #### L 501.1105, L501.1400, L501.4100, L501.4405, L501.0900 #### [facility] [address] [place], [address] T PROT 6.8 g/dL Normal 6.4-8.2 [facility] Comment on above: Performed By: #### L 501.1105, L501.1400, L501.4100, L501.4405, L501.0900 #### [facility] [address] [place], [address] Urea nitrogen [Mass/Vol] 6 mg/dL Low 7-18 [facility] Comment on above: Performed By: #### L 501.1105, L501.1400, L501.4100, L501.4405, L501.0900 #### [facility] [address] [place], [address] Lipaseon 07-01-2024 Lipase [Catalytic activity/Vol] 18 U/L Normal 13-75 [facility] Comment on above: Result Comment: Tammy schmitt note: LIPASE revised reference range effective 23. New Lipase methodology. Expected to produce lower values than the previous assay method. NEW Reference Range: 13 - 75 U/L Performed By: #### L 501.1105, L501.1400, L501.4100, L501.4405, L501.0900 #### [facility] [address] [place], [address] M100.678on 07-01-2024 M100.678 Pending SARS-CoV-2 (COVID 19) Negative INFLUENZA A Negative INFLUENZA B Negative RSV PCR Negative Normal [facility] Comment on above: Performed By: #### L 501.1105, L501.1400, L501.4100, L501.4405, L501.0900 #### [facility] [address] [place], [address] M8200.2100on 07-01-2024 M8200.2100 Chlamydia Trachomati s PCR NEGATIVE for Chlamydia trachomatis Normal [facility] Comment on above: Performed By: #### L 501.1105, L501.1400, L501.4100, L501.4405, L501.0900 #### [facility] [address] [place], [address] M8200.2200on 07-01-2024 M8200.2200 Negative Normal [facility] Comment on above: Performed By: #### L 501.1105, L501.1400, L501.4100, L501.4405, L501.0900 #### [facility] [address] [place], [address] OB Triage Physician Noteon 0 07-01-2024 OB Triage Physician Note [facility] Medical Records Department [address] [place] [address] OB Triage Physician Note 07/01/24 1435 MR#: [id number] Acct: [id number] Name: LUZMARIA HEARN Rep #: [id number] : 2005 19 From: Jackie Candelaria CNM PCP: Dr. Dusty Galeano MD Status:DEP CLI Y Location: [facility] HPI - General General Date of Service: 07/01/24 HPI Narrative LUZMARIA HEARN, is a 19 F who presents at 32 weeks for decreased movement, white urine and vaginal pressure on and off. Increased nausea, took zofran at home but threw it up. [facility] Medical History (Updated 07/01/24 @ 14:36 by Jackie Candelaria CNM) Cyst of right ovary Home Medications ???Medication ???Instructions ???Recorded ???Last Taken ???Type ondansetron 4 mg disintegrating 4 mg PO Q6H PRN PRN Nausea #20 tabs 01/08/24 Unknown Rx tablet promethazine 25 mg rectal 25 mg RECTAL Q6H PRN PRN Nausea 01/08/24 Unknown Rx suppository (Promethegan) ##15 Allergy/AdvReac Type Severity Reaction Status Date / Time No Known Allergies Allergy Verified 01/08/24 08:53 Surgical History History of cholecystectomy Social History Smoking Status: Never smoker History Elective abortions Hx Para 1 Spontaneous abortions Hx # Term Pregnancies Ectopic pregnancies Hx # Pregnancies Multiple births # of living children NST FHR Rate Baby A Baseline: 130 Variability:: Moderate Accelerations:: 15 x 15 Decelerations:: None NST Reactive:: Yes Uterine Activity:: Irregular Assessment Plan (1) Nausea vomiting: (2) Decreased movement: PLAN: Plan 1) Reactive NST 2) IV zofran and 1 Liter LR 3) Urine culture sent 4) D/C home 07/01/24 1437 Date Jackie Candelaria [facility] Cosigner Signature (if applicable): Date CC: [facility] Jackie Candelaria; Dr. Dusty Galeano MD Signed Normal [facility] Urinalysis, Routine (Dipstic k)on 07-01-2024 Clarity (U) Sl. Cloudy Normal Clear [facility] Comment on above: Order Comment: CLEAN CATCH Performed By: #### L 501.1105, L501.1400, L501.4100, L501.4405, L501.0900 #### [facility] [address] [facility] [place], [place], [address] Color (U) DARK YELLOW Normal Yellow [facility] Comment on above: Order Comment: CLEAN CATCH Performed By: #### L 501.1105, L501.1400, L501.4100, L501.4405, L501.0900 #### [facility] [address] [place], [address] BILIRUBIN URINE Negative Normal Negative [facility] Comment on above: Order Comment: CLEAN CATCH Performed By: #### L 501.1105, L501.1400, L501.4100, L501.4405, L501.0900 #### [facility] [address] [place], [address] GLUCOSE, UR Normal Normal Normal [facility] Comment on above: Order Comment: CLEAN CATCH Performed By: #### L 501.1105, L501.1400, L501.4100, L501.4405, L501.0900 #### [facility] [address] [place], [address] KETONE UR Negative Normal Negative [facility] Comment on above: Order Comment: CLEAN CATCH Performed By: #### L 501.1105, L501.1400, L501.4100, L501.4405, L501.0900 #### [facility] [address] [place], [address] LEUK ESTERASE 100 /ul Abnormal Negative [facility] Comment on above: Order Comment: CLEAN CATCH Performed By: #### L 501.1105, L501.1400, L501.4100, L501.4405, L501.0900 #### [facility] [address] [place], [address] Nitrite Ql (U) Negative Normal Negative [facility] Comment on above: Order Comment: CLEAN CATCH Performed By: #### L 501.1105, L501.1400, L501.4100, L501.4405, L501.0900 #### [facility] [address] [place], [address] OCCULT BLOOD-UR 10 /ul Abnormal Negative [facility] Comment on above: Order Comment: CLEAN CATCH Performed By: #### L 501.1105, L501.1400, L501.4100, L501.4405, L501.0900 #### [facility] [address] [place], [address] pH UR 7.0 Normal 5.0 - 8.0 [facility] Comment on above: Order Comment: CLEAN CATCH Performed By: #### L 501.1105, L501.1400, L501.4100, L501.4405, L501.0900 #### [facility] [address] [place], [address] PROT DIPSTX 30 mg/dl Abnormal Negative [facility] Comment on above: Order Comment: CLEAN CATCH Performed By: #### L 501.1105, L501.1400, L501.4100, L501.4405, L501.0900 #### [facility] [address] [place], [address] SP.GR. DIPSTX 1.010 Normal 1.002-1.030 [facility] Comment on above: Order Comment: CLEAN CATCH Performed By: #### L 501.1105, L501.1400, L501.4100, L501.4405, L501.0900 #### [facility] [address] [place], [address] UROBILI 1 mg/dl Abnormal Normal [facility] Comment on above: Order Comment: CLEAN CATCH Performed By: #### L 501.1105, L501.1400, L501.4100, L501.4405, L501.0900 #### [facility] [address] [place], [address] Examination level ultrasound on 06-28-2024 [facility] Radiology Study observation (narrative) [facility] C. trachomatis+N. gonorrhoea e DNA LILIA+probe Ql (Unsp spec)on 05-31-2024 C. trachomatis rRNA LILIA+probe Ql (Unsp spec) Negative Normal Negative for Chlamydia trachomatis by amplificaton [facility] Comment on above: Order Comment: Speci men Type: SWABOrdering Facility: [facility] Address: [address] [place] [address] Performed By: #### 3 6902-5 ####[facility] LABCLIA [id number] [facility] [id number] [address] [place] N. gonorrhoeae rRNA LILIA+probe Ql (Unsp spec) Negative Normal Negative for Neisseria gonorrhoeae by amplification [facility] Comment on above: Order Comment: Speci men Type: SWABOrdering Facility: [facility] Address: [address] [place] [address] Performed By: #### 3 6902-5 ####[facility] LABCLIA [id number] [facility] [id number] [place] [address] [place] CBC W Auto Differential pane l (Bld)on 05-31-2024 Basophils (Bld) [#/Vol] 0.08 10*3/uL Normal <0.11 [facility] Comment on above: Order Comment: Speci men Type: BLOOD SPECIMENOrdering Facility: [facility] Address: [address] [place] [address] Performed By: #### 5 7021-8 ####[facility] [id number] [place] [address] [place] Basophils/100 WBC (Bld) 0.5 % Normal [facility] Comment on above: Order Comment: Speci men Type: BLOOD SPECIMENOrdering Facility: [facility] Address: [address] [place] [address] Performed By: #### 5 7021-8 ####[facility] [id number] [place] [address] [place] Differential cell count method Nom (Bld) Auto Normal [facility] Comment on above: Order Comment: Speci men Type: BLOOD SPECIMENOrdering Facility: [facility] Address: [address] [place] [address] Performed By: #### 5 7021-8 ####[facility] [id number] [place] [address] [place] Eosinophils (Bld) [#/Vol] 0.29 10*3/uL Normal <0.46 [facility] Comment on above: Order Comment: Speci men Type: BLOOD SPECIMENOrdering Facility: [facility] Address: [address] [place] [address] Performed By: #### 5 7021-8 ####[facility] BRYCE IAN [id number] [place] [address] [place] Eosinophils/100 WBC (Bld) 1.6 % Normal [facility] Comment on above: Order Comment: Speci men Type: BLOOD SPECIMENOrdering Facility: [facility] Address: [address] [place] [address] Performed By: #### 5 7021-8 ####[facility] CLAIRENUSRATDivya [id number] [place] [address] [place] Erythrocyte distribution width (RBC) [Ratio] 12.7 % Normal 11.5-15.0 [facility] Comment on above: Order Comment: Speci men Type: BLOOD SPECIMENOrdering Facility: [facility] Address: [address] [place] [address] Performed By: #### 5 7021-8 ####[facility] ROCHELLEBOULDER CITYNUSRATA [id number] [place] [address] [place] LIV Hematocrit (Bld) [Volume fraction] 36.0 % Normal 36.0-46.0 [facility] Comment on above: Order Comment: Speci men Type: BLOOD SPECIMENOrdering Facility: [facility] Address: [address] [place] [address] Performed By: #### 5 7021-8 ####[facility] ROCHELLEBOULDER CITYBRADLIA [id number] [place] [address] [place] Hemoglobin (Bld) [Mass/Vol] 12.3 g/dL Normal 11.5-15.5 [facility] Comment on above: Order Comment: Speci men Type: BLOOD SPECIMENOrdering Facility: [facility] Address: [address] [place] [address] Performed By: #### 5 7021-8 ####[facility] MILLWNCLIA [id number] [place] [address] [place] Immature granulocytes (Bld) [#/Vol] 0.24 10*3/uL High <0.10 [facility] Comment on above: Order Comment: Speci men Type: BLOOD SPECIMENOrdering Facility: [facility] Address: [address] [place] [address] Performed By: #### 5 7021-8 ####[facility] HOSPITALLIA [id number] [place] [address] [place] Immature granulocytes/100 WBC (Bld) 1.4 % Normal [facility] Comment on above: Order Comment: Speci men Type: BLOOD SPECIMENOrdering Facility: [facility] Address: [address] [place] [address] Performed By: #### 5 7021-8 ####[facility] HOSPITALLIA [id number] [place] [address] [place] Lymphocytes (Bld) [#/Vol] 2.80 10*3/uL Normal 1.00-4.00 [facility] Comment on above: Order Comment: Speci men Type: BLOOD SPECIMENOrdering Facility: [facility] Address: [address] [place] [address] Performed By: #### 5 7021-8 ####[facility] HOS[facility]ITALLIA [id number] [place] [address] [place] Lymphocytes/100 WBC (Bld) 15.8 % Normal [facility] Comment on above: Order Comment: Speci men Type: BLOOD SPECIMENOrdering Facility: [facility] Address: [address] [place] [address] Performed By: #### 5 7021-8 ####[facility] GORDANCLIA [id number] [place] [address] [place] MCH (RBC) [Entitic mass] 29.9 pg Normal 26.0-34.0 [facility] Comment on above: Order Comment: Speci men Type: BLOOD SPECIMENOrdering Facility: [facility] Address: [address] [place] [address] Performed By: #### 5 7021-8 ####[facility] [id number] [place] [address] [place] MCHC (RBC) [Mass/Vol] 34.2 g/dL Normal 30.5-36.0 [facility] Comment on above: Order Comment: Speci men Type: BLOOD SPECIMENOrdering Facility: [facility] Address: [address] [place] [address] Performed By: #### 5 7021-8 ####[facility] [id number] [place] [address] [place] MCV (RBC) [Entitic vol] 87.4 fL Normal 80.0-100.0 [facility] Comment on above: Order Comment: Speci men Type: BLOOD SPECIMENOrdering Facility: [facility] Address: [address] [place] [address] Performed By: #### 5 7021-8 ####[facility] G[facility]ANCA [id number] [place] [address] [place] Monocytes (Bld) [#/Vol] 1.09 10*3/uL High <0.87 [facility] Comment on above: Order Comment: Speci men Type: BLOOD SPECIMENOrdering Facility: [facility] Address: [address] [place] [address] Performed By: #### 5 7021-8 ####[facility] GORDANCLI [id number] [place] [address] [place] Monocytes/100 WBC (Bld) 6.1 % Normal [facility] Comment on above: Order Comment: Speci men Type: BLOOD SPECIMENOrdering Facility: [facility] Address: [address] [place] [address] Performed By: #### 5 7021-8 ####[facility] GORDABRADLIA [id number] [place] [address] [place] Neutrophils (Bld) [#/Vol] 13.24 10*3/uL High 1.45-7.50 [facility] Comment on above: Order Comment: Speci men Type: BLOOD SPECIMENOrdering Facility: [facility] Address: [address] [place] [address] Performed By: #### 5 7021-8 ####[facility] [id number] [place] [address] [place] Neutrophils/100 WBC (Bld) 74.6 % Normal [facility] Comment on above: Order Comment: Speci men Type: BLOOD SPECIMENOrdering Facility: [facility] Address: [address] [place] [address] Performed By: #### 5 7021-8 ####[facility]ENTERA [id number] [place] [address] [place] Nucleated RBC (Bld) [#/Vol] 10*3/uL Normal <0.01 [facility] Comment on above: Order Comment: Speci men Type: BLOOD SPECIMENOrdering Facility: [facility] Address: [address] [place] [address] Performed By: #### 5 7021-8 ####[facility]ITALLIA [id number] [place] [address] [place] Nucleated RBC/100 WBC (Bld) [Ratio] 0.0 /100 WBC Normal [facility] Comment on above: Order Comment: Speci men Type: BLOOD SPECIMENOrdering Facility: [facility] Address: [address] [place] [address] Performed By: #### 5 7021-8 ####[facility] ROCHELLEWNCLIA [id number] [place] [address] [place] Platelet mean volume (Bld) [Entitic vol] 9.4 fL Normal 9.0-12.7 [facility] Comment on above: Order Comment: Speci men Type: BLOOD SPECIMENOrdering Facility: [facility] Address: [address] [place] [address] Performed By: #### 5 7021-8 ####[facility]ANCLIA [id number] [place] [address] [place] Platelets (Bld) [#/Vol] 348 10*3/uL Normal 150-400 [facility] Comment on above: Order Comment: Speci men Type: BLOOD SPECIMENOrdering Facility: [facility] Address: [address] [place] [address] Performed By: #### 5 7021-8 ####[facility]ANCLIA [id number] [place] [address] [place] RBC (Bld) [#/Vol] 4.12 10*6/uL Normal 3.90-5.20 [facility] Comment on above: Order Comment: Speci men Type: BLOOD SPECIMENOrdering Facility: [facility] Address: [address] [place] [address] Performed By: #### 5 7021-8 ####[facility]ALLIA [id number] [place] [address] [place] WBC (Bld) [#/Vol] 17.74 10*3/uL High 3.70-11.00 [facility] Comment on above: Order Comment: Speci men Type: BLOOD SPECIMENOrdering Facility: [facility] Address: [address] [place] [address] Performed By: #### 5 7021-8 ####[facility]ANCLIA [id number] [place] [id number] [place] GESTATIONAL GLUCOSE SCREEN, 1-HOUR, 50 GRAM, NON-FASTINGon 05-31-2024 Glucose [Mass/Vol] 116 mg/dL Normal 74-134 [facility] Comment on above: Order Comment: Edyta pino Type: BLOOD SPECIMENOrdering Facility: [facility] Address: [address] [place] [address] Result Comment: [facility] Congress of Obstetricians and Gynecologists (Anupam/Lee) guidelines state a gestational diabetes mellitus positive screen is made, in women not previously diagnosed with overt diabetes, when the 1 hr plasma glucose level is equal to or above 140 mg/dL. The [facility] Officer and [facility] [place] recommends a 135 mg/dL cutoff. Performed By: #### G LTGST ####[facility] [id number] [place] [address] [place] Reagin and Treponema pallidu m IgG and IgM [Interp]on 05-31-2024 T. pallidum IgG+IgM IA Ql (S) Non-Reactive Normal Nonreactive [facility] Comment on above: Order Comment: Edyta pino Type: BLOOD SPECIMENOrdering Facility: [facility] Address: [address] [place] [address] Performed By: #### 7 3752-8 ####[facility] LABCLIA [id number] [place] [address] [place] Reagin+T pallidum IgG+IgM Se rPl-Impon 05-31-2024 Reagin and Treponema pallidum IgG and IgM [Interp] Cannot exclude recent Treponemal infection if specimen collected within 7-10 days after appearance of suspect lesions or 2-3 weeks after an exposure. Clinical correlation is required. Normal [facility] Comment on above: Order Comment: Edyta pino Type: BLOOD SPECIMENOrdering Facility: [facility] Address: [address] [place] [address] Performed By: #### 7 3752-8 ####[facility] LABCLIA [id number] [place] [address] [place] C. trachomatis+N. gonorrhoea e DNA LILIA+probe Ql (Unsp spec)on 05-03-2024 C. trachomatis rRNA LILIA+probe Ql (Unsp spec) Unable to detect Chlamydia trachomatis due to inhibitory substances. Submit repeat specimen if clinically indicated. Abnormal Negative for Chlamydia trachomatis by amplificaton [facility] Comment on above: Order Comment: Speci men Type: SWABOrdering Facility: [facility] Address: [address] [place] [address] Performed By: #### 3 6902-5 ####[facility]ENTERIA [id number] [place] [address] [place] N. gonorrhoeae rRNA LILIA+probe Ql (Unsp spec) Unable to detect Neisseria gonorrhoeae due to inhibitory substances. Submit repeat specimen if clinically indicated. Abnormal Negative for Neisseria gonorrhoeae by amplification [facility] Comment on above: Order Comment: Speci men Type: SWABOrdering Facility: [facility] Address: [address] [place] [address] Performed By: #### 3 6902-5 ####[facility] [id number] [place] [address] [place] CNOVon 04-16-2024 CNOV Office Visit (UCWSTR ) LUZMARIA HEARN ([id number]) 1 F Date Time Provider Department 04/16/24 6:45 PM SANAZ K[facility] WSTR During your visit today, we recorded the following information about you: Temperature Pulse Respiration Blood pressure 99.5 degrees 98/minute 20/minute 132/82 Weight 103 kg Sanaz Kaiser PA 04/16/2024 7:07 PM Signed This note was created using UnBuyThatter. Subjective Luzmaria Hearn is a 19 year [...] she was also given a list of oqvg-ieq-exvjevd safe medications for URI symptoms. 2. Sore throat - ICD9: 462, ICD10: J02.9 - suspect viral - Group A (more content not included)... Normal [facility] INFLUENZA A&B MOLECULAR (POC )on 04-16-2024 Flu A (POCT) Negative Negative [facility] Flu B (POCT) Negative Negative [facility] Procedural Control Valid [facility] Location:[facility], [address] [facility], [place], [place], [id number] [place] [address] POINT OF CARE [facility] STREP A MOLECULAR (POC)on Procedural Control Valid [facility] Strep A (POCT) Negative Negative [facility] ALPHA FETOPRO MATERNALon AFP, MATERNAL 0.89 [facility] Comment on above: Order Comment: Speci men Type: BLOOD SPECIMEN [facility] Address: [address] [place] [address] Result Comment: 45.0 8 ng/mL Performed By: #### A FPMAT #### [facility] CLIA [id number] [address] [place] [address] [place] DATE OF COLLECTION #1 04/11/24 [facility] Comment on above: Order Comment: Speci men Type: BLOOD SPECIMEN [facility] Address: [address] [place] [address] Performed By: #### A FPMAT #### [facility] CLIA [id number] [address] [place] [address] [place] DATE RECEIVED 04/12/24 [facility] Comment on above: Order Comment: Speci men Type: BLOOD SPECIMEN [facility] Address: [address] [place] [address] Performed By: #### A FPMAT #### [facility] CLIA [id number] [address] [place] [address] [place] JOSE J 08/24/24 [facility] Comment on above: Order Comment: Speci men Type: BLOOD SPECIMEN [facility] Address: [address] [place] [address] Performed By: #### A FPMAT #### [facility] CLIA [id number] [facility] [place] [address] [place] GESTATION AT DATE OF SAMPLE 20 weeks 5 days (by dates) [facility] Comment on above: Order Comment: Speci men Type: BLOOD SPECIMEN [facility] Address: [address] [place] [address] Performed By: #### A FPMAT #### [facility] CLIA [id number] [address] [place] [address] [place] INSULIN DEPENDENT DIABETES None [facility] Comment on above: Order Comment: Speci men Type: BLOOD SPECIMEN [facility] Address: [address] [place] [address] Performed By: #### A FPMAT #### [facility] CLIA [id number] [address] [place] [address] [place] IVF No [facility] Comment on above: Order Comment: Speci men Type: BLOOD SPECIMEN [facility] Address: [address] [place] [address] Performed By: #### A FPMAT #### [facility] CLIA [id number] [address] [place] [address] [place] LMP 11/18/23 [facility] Comment on above: Order Comment: Speci men Type: BLOOD SPECIMEN [facility] Address: [address] [place] [address] Performed By: #### A FPMAT #### [facility] CLIA [id number] [address] [place] [address] [place] MATERNAL AFP COMMENT See comments below [facility] Comment on above: Order Comment: Speci men Type: BLOOD SPECIMEN [facility] Address: [address] [place] [address] Result Comment: INTE RPRETATION Screening result : Screen negative Risk of NTD : 1 in 5,700 Comment : The interpretation is for NTD only A screen negative result does not exclude the possibility of a neural tube defect, because screening does not detect all affected pregnancies Performed By: #### A FPMAT #### [facility] CLIA [id number] [address] [place] [address] OF LIV MATERNAL AGE AT JOSE J 19 years [facility] Comment on above: Order Comment: Edyta pino Type: BLOOD SPECIMEN [facility] Address: [address] [place] [address] Performed By: #### A FPMAT #### [facility] CLIA [id number] [address] [place] [address] OF LIV PATIENT'S WEIGHT DAY OF COLLECTION 234 lb. [facility] Comment on above: Order Comment: Edyta pino Type: BLOOD SPECIMEN [facility] Address: [address] [place] [address] Performed By: #### A FPMAT #### [facility] CLIA [id number] [address] [place] [address] OF LIV INTERP-MATERNAL AFP Negative Normal Screen [facility] Comment on above: Order Comment: Edyta pino Type: BLOOD SPECIMEN [facility] Address: [address] [place] [address] Performed By: #### A FPMAT #### [facility] CLIA [id number] [address] [place] [address] STATES OF LIV PREVIOUS NTD None [facility] Comment on above: Order Comment: Edyta pino Type: BLOOD SPECIMEN [facility] Address: [address] [place] [address] Performed By: #### A FPMAT #### [facility] CLIA [id number] [address] [place] [address] OF LIV RISK OF NTD ;1:5700 [facility] Comment on above: Order Comment: Speci men Type: BLOOD SPECIMEN [facility] Address: [address] [place] [address] Performed By: #### A FPMAT #### [facility] CLIA [id number] [address] [place] [address] SAMPLE #1 [id number] [facility] Comment on above: Order Comment: Speci men Type: BLOOD SPECIMEN [facility] Address: [address] [place] [address] Performed By: #### A FPMAT #### [facility] CLIA [id number] [address] [place] [address] STAFF REVIEW (MATERNAL SCREENS) Reviewed by Bora West MD, Ph.D ([id number]) [facility] Comment on above: Order Comment: Speci men Type: BLOOD SPECIMEN [facility] Address: [address] [place] [address] Performed By: #### A FPMAT #### [facility] CLIA [id number] [address] [place] [address] OF LIV Examination level ultrasound on 04-11-2024 Indication anatomy [...] 14 oz EFW by: Hadlock (HC-AC-FL) Extended Associate Programmer Analyst 4.6 mm CM 4.5 mm 29% Nicolaides [...] normal LVOT view: normal 3-vessel view: normal 3-fsgxgx-iffyuga view: normal Heart / Thorax Situs: situs [...] Read By: Kostas Huang M.D. MATERNAL MEDICINE [facility] Radiology Study observation (narrative) [facility] Jenny 04-09-2024 JOHNATHAN Telephone (OBGYWM) LUZMARIA HEARN ([id number]) 1 F Date Time Provider Department 04/09/24 JOCELYNN ARAIZA During your visit today, we recorded the following information about you: Jaren Schmidt RN 04/09/2024 8:34 AM Signed I called patient because she did not do AFP that was ordered at last visit. Pt has upcoming appointment 04/11 in [place] for ultrasound. She is made aware she can do it at the lab at [place]. Discussed time limitations of testing Allergies As of Date: 04/09/2024 Noted Allergy Reaction MORPHINE 01/11/2024 8 - GI Upset Date Reviewed: 03/29/2024 Reviewed by: Dominique Lau MA - Fully Assessed Reason for Visit: Lab Orders [1428] Prescriptions as of 04/09/2024 - ondansetron orally [...] Status:Closed by JAREN SCHMIDT on 04/09/24 Normal [facility] .Auto Diffon 03-19-2024 Basophil, Absolute 0.1 10 3/mcL Normal 0.0-0.2 [facility] ([place]) Comment on above: Performed By: #### C ENMANUEL LOPEZ MDW, CMP, ANEU, HCGQ, GFR #### [address] [address] Basophils/100 WBC (Bld) 0.7 % Normal 0.0-2.5 [facility] ([place]) Comment on above: Performed By: #### C ENMANUEL LOPEZ MDW, CMP, ANEU, HCGQ, GFR #### [address] [address] Eosinophil, Absolute 0.1 10 3/mcL Normal 0.0-0.4 [facility] ([place]) Comment on above: Performed By: #### C ENMANUEL LOPEZ MDW, CMP, ANEU, HCGQ, GFR #### [address] [address] Eosinophils/100 WBC (Bld) 0.8 % Normal 0.0-7.0 [facility] ([place] Comment on above: Performed By: #### C ENMANUEL LOPEZ MDW, CMP, ANEU, HCGQ, GFR #### [address] [address] Lymphocyte, Absolute 2.8 10 3/mcL Normal 0.8-3.9 [facility] ([place]) Comment on above: Performed By: #### C ENMANUEL LOPEZ MDW, CMP, ANEU, HCGQ, GFR #### [address] [address] Lymphocytes/100 WBC (Bld) 15.6 % Normal 10.0-50.0 [facility] ([place] Comment on above: Performed By: #### C ENMANUEL LOPEZ MDW, CMP, ANEU, HCGQ, GFR #### [address] [address] Monocyte, Absolute 0.9 10 3/mcL Normal 0.2-1.0 [facility] ([place]) Comment on above: Performed By: #### C ENMANUEL LOPEZ MDW, CMP, ANEU, HCGQ, GFR #### [address] [address] Monocytes/100 WBC (Bld) 4.8 % Normal 1.7-13.0 [facility] ([place] Comment on above: Performed By: #### C ENMANUEL LOPEZ MDW, CMP, ANEU, HCGQ, GFR #### [address] [address] Neutrophils/100 WBC (Bld) 78.1 % Normal 37.0-80.0 [facility] ([place] Comment on above: Performed By: #### C ENMANUEL LOPEZ MDW, CMP, ANEU, HCGQ, GFR #### [address] [address] .GFRon 03-19-2024 GFR 184 ml/min/1.73sqm Normal [facility] ([place] Comment on above: Result Comment: GFR Population [...] Performed By: #### U AMICAO, UA #### [address] [address] GFR Non- 152 ml/min/1.73sqm Normal [facility] ([place]) Comment on above: Result Comment: GFR Population [...] Performed By: #### U AMICAO, UA #### [place] [id number] .MDWon 03-19-2024 Monocyte Distribution Width 15.87 Normal 0.00-20.00 [facility] ([place]) Comment on above: Result Comment: For ED adult patients suspected of sepsis, MDW<=20.0 does not rule out sepsis or risk of sepsis Performed By: #### C ENMANUEL LOPEZ MDW, CMP, ANEU, HCGQ, GFR #### [address] [address] .NEUABSon 03-19-2024 Neutrophil, Absolute 14.2 10 3/mcL High 2.9-6.2 [facility] ([place]) Comment on above: Performed By: #### C ENMANUEL LOPEZ MDW, CMP, ANEU, HCGQ, GFR #### [address] [address] .Urinalysis Microscopic (AO) on 03-19-2024 UA Bacteria 3+ /hpf Abnormal [facility] ([place] Comment on above: Performed By: #### U AMICAO, UA #### [address] [address] UA Mucous 2+ /hpf Normal [facility] ([place] Comment on above: Performed By: #### U AMICAO, UA #### [address] [address] UA RBC 0-5 Abnormal None Seen [facility] ([place] Comment on above: Performed By: #### U AMICAO, UA #### [address] [address] UA Squam Epithelial LOADED Abnormal None Seen [facility] ([place]) Comment on above: Performed By: #### U AMICAO, UA #### [place] [address] UA WBC LOADED Abnormal None Seen [facility] ([place] Comment on above: Performed By: #### U AMICAO, UA #### [place] [address] CBCon 03-19-2024 Erythrocyte distribution width (RBC) [Ratio] 13.9 % Normal 11.5-14.5 [facility] ([place] Comment on above: Performed By: #### C ENMANUEL LOPEZ MDW, CMP, ANEU, HCGQ, GFR #### [address] [address] Hematocrit (Bld) [Volume fraction] 37.4 % Normal 37.0-47.0 [facility] ([place] Comment on above: Performed By: #### C ENMANUEL LOPEZ MDW, CMP, ANEU, HCGQ, GFR #### [address] [address] Hgb 12.9 G/dL Normal 12.0-16.0 [facility] ([place]) Comment on above: Performed By: #### C ENMANUEL LOPEZ MDW, CMP, ANEU, HCGQ, GFR #### [address] [address] MCH (RBC) [Entitic mass] 29.7 pg Normal 27.0-31.2 [facility] ([place]) Comment on above: Performed By: #### C ENMANUEL LOPEZ MDW, CMP, ANEU, HCGQ, GFR #### [address] [address] MCHC 34.5 G/dL Normal 33.0-37.0 [facility] ([place]) Comment on above: Performed By: #### C JOHN, ANAHI SINGER, CMP, ANEU, HCGQ, GFR #### [address] [address] MCV (RBC) [Entitic vol] 86.1 fL Normal 80.0-94.0 [facility] ([place] Comment on above: Performed By: #### C ENMANUEL LOPEZ MDW, CMP, ANEU, HCGQ, GFR #### [address] [address] Platelet 337 10 3/mcL Normal 130-400 [facility] ([place]) Comment on above: Performed By: #### C ENMANUEL LOPEZ MDW, CMP, ANEU, HCGQ, GFR #### [address] [address] Platelet mean volume (Bld) [Entitic vol] 7.7 fL Normal 7.4-10.4 [facility] ([place] Comment on above: Performed By: #### C ENMANUEL LOPEZ MDW, CMP, ANEU, HCGQ, GFR #### [address] [address] [address] RBC 4.34 10 6/mcL Normal 4.20-5.40 [facility] ([place]) Comment on above: Performed By: #### C ENMANUEL LOPEZ MDW, CMP, ANEU, HCGQ, GFR #### [address] [address] WBC 18.2 10 3/mcL High 4.6-10.8 [facility] ([place]) Comment on above: Performed By: #### C ENMANUEL LOPEZ MDW, CMP, ANEU, HCGQ, GFR #### [place] [id number] CMPon 03-19-2024 Albumin Level 3.0 G/dL Low 3.5-5.0 [facility] ([place] Comment on above: Performed By: #### CALIN TIWARI #### [address] [address] Albumin/Globulin [Mass ratio] 0.8 {ratio} Low 1.1-2.5 [facility] ([place] Comment on above: Performed By: #### Paloma AMS UA #### [address] [address] ALP [Catalytic activity/Vol] 49 U/L Normal 40-135 [facility] ([place] Comment on above: Performed By: #### Paloma MAS UA #### [address] [address] ALT [Catalytic activity/Vol] 18 U/L Normal 14-59 [facility] ([place] Comment on above: Performed By: #### Paloma MAS UA #### [address] [address] AST [Catalytic activity/Vol] 9 U/L Low 10-40 [facility] ([place] Comment on above: Performed By: #### Paloma MAS UA #### [address] [address] Bili Total 0.3 mg/dL Normal 0.2-1.0 [facility] ([place] Comment on above: Result Comment: Use of this assay is not recommended for patients undergoing treatment with eltrombopag due to the potential for falsely elevated results. Performed By: #### Paloma MAS UA #### [address] [address] BUN/Creatinine Ratio 10 ratio Normal 7-27 [facility] ([place]) Comment on above: Performed By: #### Paloma MAS UA #### [address] [address] Calcium [Mass/Vol] 9.0 mg/dL Normal 8.4-10.2 [facility] ([place]) Comment on above: Performed By: #### Paloma MAS UA #### [address] [address] Chloride [Moles/Vol] 102 mmol/L Normal 98-107 [facility] ([place] Comment on above: Performed By: #### U TG UA #### [address] [address] CO2 [Moles/Vol] 23 mmol/L Normal 22-29 [facility] ([place] Comment on above: Performed By: #### U TG, UA #### [address] [address] Creatinine [Mass/Vol] 0.51 mg/dL Low 0.55-1.02 [facility] ([place]) Comment on above: Performed By: #### Paloma MAS UA #### [address] [address] Electrolyte Balance 12.0 mEq/L Normal 4.0-15.0 [facility] ([place]) Comment on above: Performed By: #### Paloma MAS UA #### [address] [address] Globulin 4.0 G/dL Normal [facility] ([place] Comment on above: Performed By: #### Paloma MAS UA #### [address] [address] Glucose [Mass/Vol] 96 mg/dL Normal 70-105 [facility] ([place]) Comment on above: Performed By: #### U AMICAO, UA #### [address] [address] Potassium [Moles/Vol] 3.6 mmol/L Normal 3.5-5.1 [facility] ([place] Comment on above: Performed By: #### U AMICAO, UA #### [address] [address] Sodium [Moles/Vol] 137 mmol/L Normal 136-145 [facility] ([place]) Comment on above: Performed By: #### U BRAVOCAO, UA #### Alexis [address] [place], [place] [address] Total Protein 7.0 G/dL Normal 6.4-8.2 [facility] ([place] Comment on above: Performed By: #### CALIN TIWARI #### [address]is [address] [place], [place] [address] Urea nitrogen [Mass/Vol] 5 mg/dL Low 7-18 [facility] ([place] Comment on above: Performed By: #### CALIN TIWARI #### [address] [place], [place] [address] CNPNon 03-19-2024 CNPN Telephone (OBGYWM) LUZMARIA HEARN ([id number]) 1 F Date Time Provider Department 03/19/24 NALLELY ORMERO OBGYWM During your visit today, we recorded [...] electrolyte drink when able, tylenol for headache/fever. [facility] [place] message also sent with link to safe [...] Status:Closed by ANGELA GEORGE on 03/19/24 Normal [facility] HCGQon 03-19-2024 hCG, quantitative 36814.1 mIU/mL Normal [facility] ([place]) Comment on above: Result Comment: HCG Levels [...] By: #### U CALIN MAS #### [place] [address] LABORATORYOrdered By: SYSTEM SYSTEM on 03-19-2024 Lipase [...] Bilirubin [Mass/Vol] 0.3 mg/dL Normal 0.2 - 1 .0 mg/dL AO ADM SS Comment on above: Interpretive Data: U se of this assay is not recommended for patients undergoing treatment with eltrombopag due to the potential for falsely elevated results. Calcium [Mass/Vol] 9.0 mg/dL Normal 8.4 - 10. 2 mg/dL AO ADM SS Chloride [Moles/Vol] 102 mmol/L Normal 98 - 10 7 mmol/L AO ADM SS CO2 [Moles/Vol] 23 mmol/L Normal 22 - 29 mmol/L AO AD M SS Creatinine [Mass/Vol] 0.51 mg/dL Low 0.55 - 1.02 mg/dL AO ADM SS Electrolyte Balance 12.0 mEq/L Normal 4.0 - 15 .0 mEq/L AO ADM SS Eosinophil, Absolute 0.1 103/mcL Normal 0.0 - 0 .4 10^3/mcL AO Workflow SS Eosinophils/100 WBC (Bld) [...] [Vol rate/Area] 152 ml/min/1.73sqm Invalid Interpretation Code EHSAN Chemistry S Comment on above: Interpretive Data: [...] 105 mg/[place] [address].1 m[IU]/mL Invalid Interpretation Code AO ADM SS [...] Lymphocyte, Absolute 2.8 103/mcL Normal 0.8 - 3 .9 10^3/mcL AO Workflow SS Lymphocytes/100 WBC (Bld) [...] Neutrophil, Absolute 14.2 103/mcL High 2.9 - 6 .2 10^3/mcL AO Workflow SS Neutrophils/100 WBC (Bld) [...] 03-19-2024 Lipase Level 14 U/L Low 16-77 [facility] ([place] Comment on above: Performed By: #### L IP #### [address] [address] UAon 03-19-2024 Color (U) Brown Abnormal [facility] ([place] Comment on above: Performed By: #### U AMICAO, UA #### [place] [address] Glucose (U) [Mass/Vol] Negative Normal Negative [facility] ([place]) Comment on above: Performed By: #### U AMICAO, UA #### [place] [address] Ketones Ql (U) 40 mg/dL Abnormal Negative [facility] ([place] Comment on above: Performed By: #### U AMICAO, UA #### [place] [address] UA Appear Cloudy Abnormal Clear [facility] ([place] Comment on above: Performed By: #### U AMICAO, UA #### [address] [address] UA Bili Small Abnormal Negative [facility] ([place] Comment on above: Performed By: #### U AMICAO, UA #### [address] [address] UA Blood Trace Abnormal Negative [facility] ([place] Comment on above: Performed By: #### U AMICAO, UA #### [address] [address] UA Leuk Est Small Abnormal Negative [facility] ([place] Comment on above: Performed By: #### U AMICAO, UA #### [address] [address] UA Nitrite Positive Abnormal Negative [facility] ([place] Comment on above: Performed By: #### U AMICAO, UA #### [place] [address] UA pH 6.0 Normal 5.0 - 8.0 [facility] ([place] Comment on above: Performed By: #### U AMICAO, UA #### [address] [address] UA Protein 100 mg/dL Abnormal Negative [facility] ([place] Comment on above: Performed By: #### U AMICAO, UA #### Alexis [address] [address] UA Spec Grav >=1.030 Abnormal 1.015-1.025 [facility] ([place] Comment on above: Performed By: #### U AMICAO, UA #### [place] [address] UA Specimen Type Not Given Normal [facility] ([place] Comment on above: Performed By: #### U AMICAO, UA #### [address] [address] UA Urobilinogen 0.2 E.U./dL Normal 0.2-1.0 [facility] ([place] Comment on above: Performed By: #### U AMICAO, UA #### [address] [address] Bacteria Ur Culton 4 Bacteria identified Cx Nom (U) ORGANISM ID: 1 >=100,000 CFU/ml Normal urogenital sarahi Normal [facility] Comment on above: Performed By: #### 6 30-4 ####[facility] LABCLIA [id number] [place] [address] [place] CARRIER SCREEN, STANDARDon 0 02-15-2024 CARRIER SCREEN RESULTS View results in S canned Documents link when available. Normal [facility] Comment on above: Order Comment: Speci men Type: BLOOD SPECIMENOrdering Facility: [facility] Address: [address] [place] [address] Performed By: #### C RRSCN ####MYRIADCLIA [id number] [place] [address] CBC panel Auto (Bld)on 02-14 Erythrocyte distribution width (RBC) [Ratio] 13.2 % Normal 11.5-15.0 [facility] Comment on above: Order Comment: Speci men Type: BLOOD SPECIMENOrdering Facility: [facility] Address: [address] [place] [address] Performed By: #### 5 8410-2 ####[facility] GORDANCSTEVEN [id number] [place] [address] [place] Hematocrit (Bld) [Volume fraction] 37.9 % Normal 36.0-46.0 [facility] Comment on above: Order Comment: Speci men Type: BLOOD SPECIMENOrdering Facility: [facility] Address: [address] [place] [address] Performed By: #### 5 8410-2 ####[facility] GORDANCRADHAA [id number] [place] [address] [place] Hemoglobin (Bld) [Mass/Vol] 13.2 g/dL Normal 11.5-15.5 [facility] Comment on above: Order Comment: Speci men Type: BLOOD SPECIMENOrdering Facility: [facility] Address: [address] [place] [address] Performed By: #### 5 8410-2 ####[facility]ANCLIA [id number] [place] [address] [place] MCH (RBC) [Entitic mass] 29.5 pg Normal 26.0-34.0 [facility] Comment on above: Order Comment: Speci men Type: BLOOD SPECIMENOrdering Facility: [facility] Address: [address] [place] [address] Performed By: #### 5 8410-2 ####[facility]ANCL[facility] [id number] [place] [address] [place] MCHC (RBC) [Mass/Vol] 34.8 g/dL Normal 30.5-36.0 [facility] Comment on above: Order Comment: Speci men Type: BLOOD SPECIMENOrdering Facility: [facility] Address: [address] [place] [address] Performed By: #### 5 8410-2 ####[facility] ROCHELLEClarisaNCSTEVEN [id number] [place] [address] [place] MCV (RBC) [Entitic vol] 84.8 fL Normal 80.0-100.0 [facility] Comment on above: Order Comment: Speci men Type: BLOOD SPECIMENOrdering Facility: [facility] Address: [address] [place] [address] Performed By: #### 5 8410-2 ####[facility]ANCL[facility] [id number] [place] [address] [place] Nucleated RBC (Bld) [#/Vol] 10*3/uL Normal <0.01 [facility] Comment on above: Order Comment: Speci men Type: BLOOD SPECIMENOrdering Facility: [facility] Address: [address] [place] [address] Performed By: #### 5 8410-2 ####[facility]ANCL[facility] [id number] [place] [address] [place] Platelet mean volume (Bld) [Entitic vol] 9.7 fL Normal 9.0-12.7 [facility] Comment on above: Order Comment: Speci men Type: BLOOD SPECIMENOrdering Facility: [facility] Address: [address] [place] [address] Performed By: #### 5 8410-2 ####[facility]AN[facility] [id number] [place] [address] [place] Platelets (Bld) [#/Vol] 326 10*3/uL Normal 150-400 [facility] Comment on above: Order Comment: Speci men Type: BLOOD SPECIMENOrdering Facility: [facility] Address: [address] [place] [address] Performed By: #### 5 8410-2 ####[facility]AN[facility] [id number] [place] [address] [place] RBC (Bld) [#/Vol] 4.47 10*6/uL Normal 3.90-5.20 [facility] Comment on above: Order Comment: Speci men Type: BLOOD SPECIMENOrdering Facility: [facility] Address: [address] [place] [address] Performed By: #### 5 8410-2 ####[facility] GORDANCA [id number] [place] [address] [place] WBC (Bld) [#/Vol] 15.98 10*3/uL High 3.70-11.00 [facility] Comment on above: Order Comment: Speci men Type: BLOOD SPECIMENOrdering Facility: [facility] Address: [address] [place] [address] Performed By: #### 5 8410-2 ####[facility] [id number] [place] [address] [place] nuchal translucency me asured by USon 02-15-2024 [facility] HBV surface Ag Ser Qlon 02-04 HBV surface Ag Ql (S) Negative Normal Negative [facility] Comment on above: Order Comment: Speci men Type: BLOOD SPECIMENOrdering Facility: [facility] Address: [address] [place] [address] Performed By: #### 5 195-3, 03777-9, 06017-0 ####[facility] LABCLIA [id number] [address] [place] HCV Ab Ser Qlon 02-15-2024 HCV Ab Ql (S) Negative Normal Negative [facility] Comment on above: Order Comment: Speci men Type: BLOOD SPECIMENOrdering Facility: [facility] Address: [address] [place] [address] Result Comment: The result suggests no evidence of active infection with Hepatitis C virus. Should recent infection be suspected, repeat testing may be considered 4-6 weeks after this draw. Performed By: #### 1 6128-1 ####[facility] LABCLIA [id number] [place] [address] [place] HIV 1+2 Ab IA Qlon 4 HIV 1 and 2 Ab IA.rapid Nom (S/P/Bld) Normal [facility] Comment on above: Order Comment: Speci men Type: BLOOD SPECIMENOrdering Facility: [facility] Address: [address] [place] [address] Result Comment: Test not indicated. Performed By: #### 5 195-3, 13653-3, 44879-6 ####[facility] LABCLIA [id number] [place] [address] [place] HIV 1+2 Ab+HIV1 p24 Ag IA Ql Non-Reactive Normal Nonreactive [facility] Comment on above: Order Comment: Speci men Type: BLOOD SPECIMENOrdering Facility: [facility] Address: [address] [place] [address] Performed By: #### 5 195-3, 03900-3, 64915-6 ####[facility] LABIA [id number] [place] [address] [place] HIV immunoassay testing algorithm interpretation (S/P/Bld) [Interp] Normal [facility] Comment on above: Order Comment: Speci men Type: BLOOD SPECIMENOrdering Facility: [facility] Address: [address] [place] [address] Result Comment: No e vidence of HIV-1 or HIV-2 infection. Should recent infection be suspected, repeat testing may be considered 2-3 weeks after this draw. [place] Rev. Code 3701.243(E): This information has been [...] test results or diagnoses. Performed By: #### 5 195-3, 34601-9, 96845-2 ####[facility] LABCLIA [id number] [address] OF [facility] HbA1c (Bld)on 02-15-2024 Average glucose Estimated from glycated hemoglobin (Bld) [Mass/Vol] 88 mg/dL Normal [facility] Comment on above: Order Comment: Speci men Type: BLOOD SPECIMENOrdering Facility: [facility] Address: [address] [place] [address] Result Comment: eAG: (Estimated average glucose) is a calculated value from HgbA1c and is insurance follow up representative of the average blood glucose level in the last 2-3 month period. Performed By: #### 5 5454-3 ####[facility] [id number] [address] [place] [facility] HbA1c (Bld) [Mass fraction] 4.7 % Normal 4.3-5.6 [facility] Comment on above: Order Comment: Speci men Type: BLOOD SPECIMENOrdering Facility: [facility] Address: [address] [place] [address] Result Comment: Amer [place] Diabetes Association guidelines indicate that patients with HgbA1c in the range 5.7-6.4% are at increased risk for development of diabetes, and intervention by lifestyle modification may be beneficial. HgbA1c greater or equal to 6.5% is considered diagnostic of diabetes. Performed By: #### 5 5454-3 ####[facility] LABIA [id number] [address] [place] IHEIVFOB32 PLUSon 02-15-2024 Cell-free DNA./Cell-free DNA.total Dosage of chromosome-specific cfDNA (cfDNA) [Molar fraction] 5% Normal [facility] Comment on above: Order Comment: Speci men Type: BLOOD SPECIMENOrdering Facility: [facility] Address: [address] [place] [address] Performed By: #### M AT21 ####[facility] LABCLIA [id number] [place] [address] Chr 13+18+21+X+Y aneuploidy Dosage of chromosome-specific cfDNA Ql (cfDNA) Negative Normal [facility] Comment on above: Order Comment: Speci men Type: BLOOD SPECIMENOrdering Facility: [facility] Address: [address] [place] [address] Performed By: #### M AT21 ####[facility] LABCLIA [id number] [place] [address] Chr 21 trisomy Dosage of chromosome-specific cfDNA Ql (cfDNA) Negative Normal [facility] Comment on above: Order Comment: Speci men Type: BLOOD SPECIMENOrdering Facility: [facility] Address: [address] [place] [address] Performed By: #### M AT21 ####[facility] LABCLIA [id number] [place] [address] Chr X and Y aneuploidy risk Sequencing Ql (cfDNA) [Interp] Not detected Normal [facility] Comment on above: Order Comment: Speci men Type: BLOOD SPECIMENOrdering Facility: [facility] Address: [address] [place] [address] Result Comment: Not Detected Not Detected Performed By: #### M AT21 ####[facility] LABCLIA [id number] [place] [address] Citation Leo (Reference lab test) Comment Normal [facility] Comment on above: Order Comment: Speci men Type: BLOOD SPECIMENOrdering Facility: [facility] Address: [address] [place] [address] Result Comment: 1. P esdras KOENIG, et al. Grecia Med. 2012;14(3):296-305. 2. Yogesh CAMACHO, et al. Prenat Diag. 2013;33(6):591-597. 3. Virgil C, et al. Clin Chem. 2015 Apr;61(4):608-616. 4. Katie KOENIG, et al. Grecia Med. 2011;13(11):913-920. 5. ACOG/SMFM Practice Bulletin No. 226, Aug 2020. Performed By: #### M AT21 ####[facility] LABCLIA [id number] [place] [address] Gestational age Estimated from conception date Krueger Normal [facility] Comment on above: Order Comment: Speci men Type: BLOOD SPECIMENOrdering Facility: [facility] Address: [address] [place] [address] Performed By: #### M AT21 ####[facility] LABCLIA [id number] [place] [address] GESTATIONALAGE AGE > OR = 9W Yes Normal [facility] Comment on above: Order Comment: Speci men Type: BLOOD SPECIMENOrdering Facility: [facility] Address: [address] [place] [address] Performed By: #### M AT21 ####[facility] LABCLIA [id number] [place] [address] Laboratory comment Leo (Report) Comment Normal [facility] Comment on above: Order Comment: Haliei alvarez Type: BLOOD SPECIMENOrdering Facility: [facility] Address: [address] [place] [address] Result Comment: The MaterniT(R) 21 PLUS laboratory-developed test (LDT) analyzes circulating cell-free DNA from a maternal blood sample. This test is used for screening purposes and not diagnostic. Clinical correlation is recommended. Validation data on twin pregnancies is limited and the ability of this test to detect aneuploidy in higher multiple gestations has not yet been validated. Performed By: #### M AT21 ####[facility] LABCLIA [id number] [place] [address] director of special services name Nom (Provider) Comment Normal [facility] Comment on above: Order Comment: Speci men Type: BLOOD SPECIMENOrdering Facility: [facility] Address: [address], [place] [address] Result Comment: This specimen showed an expected representation of chromosome 21, 18 and 13 material. Clinical correlation is suggested. Comment Zaki Singh MD, PhD, Director, [employer] Performed By: #### M AT21 ####[facility] LABCLIA [id number] [place] [address] LIMITATIONS OF THE TEST Comment Normal [facility] Comment on above: Order Comment: Speci men Type: BLOOD SPECIMENOrdering Facility: [facility] Address: [address] [place] [address] Result Comment: Barbara barker the results of [...] and Fragmin(R)). Performed By: #### M AT21 ####[facility] LABCLIA [id number] [place] [address] Monosomy X risk Dosage of chromosome-specific cfDNA Ql (Plasma cell-free+WBC DNA) [Interp] Not detected Normal [facility] Comment on above: Order Comment: Speci men Type: BLOOD SPECIMENOrdering Facility: [facility] Address: [address] [place] [address] Performed By: #### M AT21 ####[facility] LABCLIA [id number] [place] [address] NEGATIVE PREDICTIVE VALUE Note Normal [facility] Comment on above: Order Comment: Speci men Type: BLOOD SPECIMENOrdering Facility: [facility] Address: [address] [place] [address] Result Comment: The Negative Predictive Value (NPV) for trisomy 21, 18, and 13 is greater than 99%. The NPV for SCA and ESS cannot be calculated as SCA and ESS are only reported when an abnormality is detected. Performed By: #### M AT21 ####[facility] LABCLIA [id number] [place] [id number] NOTE Comment Normal [facility] Comment on above: Order Comment: Speci men Type: BLOOD SPECIMENOrdering Facility: [facility] Address: [address] [place] [address] Result Comment: See Notes [employer] is a subsidiary of [employer], using the brand [employer]. This test was developed and its performance characteristics determined by [employer]. It has not been cleared or approved by the Food and Drug Administration. This laboratory is certified under the Clinical Laboratory Improvement Amendments (CLIA) as qualified to perform high complexity clinical laboratory testing and accredited by the College [employer] [place] [employer] (CAP). If there is future clinical need for adding MaterniT GENOME testing, this specimen will be available until term. [facility] samples will not be retained beyond 60 days. [facility] patients will have to send a new sample for re-sequencing ([facility] Test Code: [id number]). Performed By: #### M AT21 ####[facility] LABIA [id number] [place] [address] PERFORMANCE CHARACTERISTICS Note Normal [facility] Comment on above: Order Comment: Edyta pino Type: BLOOD SPECIMENOrdering Facility: [facility] Address: [address] [place] [address] Result Comment: ! Sex ! Accuracy: 99.4% [...] ! ! ! * As reported in [facility] database nstd37 [https://www.ncbi.nlm.nih.gov/dbvar/studies/nstd37/ ] # Estimated Sensitivity. Sensitivity estimated across the observed size distribution of each syndrome [per [facility] database nstd37] and across the range of fractions observed in routine clinical NIPT. Actual sensitivity can also be influenced by other factors such as the size of the event, total sequence counts, amplification bias, or sequence bias. ## Krueger gestation only. Performed By: #### M AT21 ####[facility] LABCLIA [id number] [place] [address] POSITIVE PREDICTIVE VALUE N/A Normal [facility] Comment on above: Order Comment: Edyta pino Type: BLOOD SPECIMENOrdering Facility: [facility] Address: [address] [place] [address] Performed By: #### M AT21 ####[employer] LABCLIA [id number] [place] [address] Reference Lab Test Method Comment Normal [facility] Comment on above: Order Comment: Edyta pino Type: BLOOD SPECIMENOrdering Facility: [facility] Address: [address] [place] [address] Result Comment: See Notes Circulating cell-free DNA [...] and 22. Performed By: #### M AT21 ####[facility] LABCLIA [id number] [place] [address] Sex Dosage of chromosome-specific cfDNA Nom (cfDNA) Comment Normal [facility] Comment on above: Order Comment: Speci men Type: BLOOD SPECIMENOrdering Facility: [facility] Address: [address] [place] [address] Result Comment: Cons istent with Male Performed By: #### M AT21 ####[employer] LABCLIA [id number] [place] [address] Test performance information Leo (Unsp spec) Comment Normal [facility] Comment on above: Order Comment: Speci men Type: BLOOD SPECIMENOrdering Facility: [facility] Address: [address] [place] [address] Result Comment: The performance characteristics of the MaterniT(R) 21 PLUS laboratory-developed test (LDT) have been determined in a clinical validation study with women at increased risk for chromosomal aneuploidy.[1-4] Performed By: #### M AT21 ####[employer] LABCLIA [id number] [place] [address] Trisomy 13 risk Dosage of chromosome-specific cfDNA Ql (cfDNA) [Interp] Negative Normal [facility] Comment on above: Order Comment: Speci men Type: BLOOD SPECIMENOrdering Facility: [facility] Address: [address] [place] [address] Performed By: #### M AT21 ####[employer] LABCLIA [id number] [place] [address] Trisomy 18 risk Dosage of chromosome-specific cfDNA Ql (Plasma cell-free+WBC DNA) [Interp] Negative Normal [facility] Comment on above: Order Comment: Speci men Type: BLOOD SPECIMENOrdering Facility: [facility] Address: [address] [place] [address] Performed By: #### M AT21 ####[employer] LABCLIA [id number] [place] [address] RUBELLA IGG ANTIBODYon 02-14 RUBELLA IGG AB, QUAL Positive Normal Positive [facility] Comment on above: Order Comment: Speci men Type: BLOOD SPECIMENOrdering Facility: [facility] Address: [address] [place] [address] Result Comment: The result suggests recent or past exposure to Rubella virus or history of Rubella vaccination. Positive result may also be seen due to presence of passively-transferred antibodies. Please correlate with patient's history. Performed By: #### R UBIGG ####[facility] LABCLIA [id number] [place] [address] [place] Reagin and Treponema pallidu m IgG and IgM [Interp]on 02-15-2024 T. pallidum IgG+IgM IA Ql (S) Non-Reactive Normal Nonreactive [facility] Comment on above: Order Comment: Speci men Type: BLOOD SPECIMENOrdering Facility: [facility] Address: [address] [place] [address] Performed By: #### 5 195-3, 72297-5, 50953-4 ####[facility] LABCLIA [id number] [place] [address] [place] Reagin+T pallidum IgG+IgM Se rPl-Impon 02-15-2024 Reagin and Treponema pallidum IgG and IgM [Interp] Cannot exclude recent Treponemal infection if specimen collected within 7-10 days after appearance of suspect lesions or 2-3 weeks after an exposure. Clinical correlation is required. Normal [facility] Comment on above: Order Comment: Speci men Type: BLOOD SPECIMENOrdering Facility: [facility] Address: [address] [place] [address] Performed By: #### 5 195-3, 24674-5, 15712-3 ####[facility] LABCLIA [id number] [place] [address] [place] TYPE + SCREEN PRENATALon ABO A Normal [facility] Comment on above: Order Comment: Speci men Type: BLOOD SPECIMENOrdering Facility: [facility] Address: [address] [place] [address] Performed By: #### T SPN ####[facility] BLOOD BANKCLIA [id number] [place] [address] [place] HISTORICAL AB SCR STATUS Negative Normal [facility] Comment on above: Order Comment: Speci men Type: BLOOD SPECIMENOrdering Facility: [facility] Address: [address] [place] [address] Performed By: #### T SPN ####[facility] MA[facility] BLOOD BANKCLIA [id number] [place] [address] [place] Rh Nom (Bld) Positive Normal [facility] Comment on above: Order Comment: Speci men Type: BLOOD SPECIMENOrdering Facility: [facility] Address: [address] [place] [address] Performed By: #### T SPN ####[facility] MA[facility] BLOOD BANKCLIA [id number] [place] [address] [place] TYPE AND SCREEN EXPIRATION 02/18/2024 23:59 Normal [facility] Comment on above: Order Comment: Speci men Type: BLOOD SPECIMENOrdering Facility: [facility] Address: [address] [place] [address] Performed By: #### T SPN ####[facility] MAIN BLOOD BANKCLIA [id number] [place] [id number] [place] Emergency Department Summary on 01-18-2024 Emergency Department Summary [facility] Medical Records Department [address] [place] [address] Emergency Department Summary 01/18/24 MR#: [id number] Acct: [id number] Name: LUZMARIA HEARN Rep #: [id number] : 2005 19 From: Cuauhtemoc Benitez DO PCP: Dr. Dusty Galeano MD Status:DEP ER Location: ED HPI HPI - GI History of Present Illness Chief Complaint: Abd Pain Informant: patient Abdominal Pain/Flank Pain Onset: Yesterday Context: Gradual Onset Timing: Continuous Quality: Cramping Location: Diffuse Worsened by: Nothing Relieved by: Nothing Nausea/Vomiting/Emesis GI Symptom: Positive for Nausea and Vomiting Onset: Yesterday Quality: Positive for Nonbilious; Negative for Blood streaks, Coffee ground or Hematemesis Diarrhea/Melena/Hematoc hezia GI Symptom: Negative for Diarrhea, Melena or Hematochezia Associated Symptoms Associated Symptoms: Negative for Dysuria, Frequency or Hematuria Narrative Narrative: (Patient was seen during computer downtime. Note was placed on the chart 2 days after the patient was seen.) Patient presents with abdominal pain, nausea, and vomiting that began yesterday. Patient states she is approximately 8 weeks . Patient states she has been unable to keep anything down. Patient denies any hematemesis or coffee-ground emesis. Patient states her pain came on gradually. Patient describes her pain as cramping. Patient states her pain is diffuse across her entire abdomen. Patient states that has been constant since yesterday. Patient states that she has antiemetics at home which she has been taking without any relief. [facility] Medical History (Updated 01/18/24 @ 07:[address] Cuauhtemoc Benitez DO) Cyst of right ovary Home Medications ondansetron 4 mg disintegrating tablet 4 mg PO Q6H PRN PRN Nausea #20 tabs 01/08/24 [Rx Last Taken Unknown] promethazine 25 mg rectal suppository (Promethegan) 25 mg RECTAL Q6H PRN PRN Nausea ##15 01/08/24 [Rx Last Taken Unknown] Allergy/AdvReac Type Severity Reaction Status Date / Time No Known Allergies Allergy Verified 01/08/24 08:53 Surgical History History of cholecystectomy Social History Smoking Status: Never smoker ROS ROS ED Constitutional Constitutional ED: Denies chills or fever(s) Eyes Eyes: Denies blurry vision or change in vision ENT ENT ED: Denies rhinorrhea or sore throat Cardiovascular Cardiovascular: Denies chest pain or palpitations Respiratory/Chest Respiratory/Chest: Denies cough or dyspnea Gastrointestinal Gastrointestinal: Reports abdominal pain, nausea and vomiting Genitourinary Genitourinary ED: Denies dysuria or hematuria Musculoskeletal Musculoskeletal: Denies back pain or neck pain Integumentary Reports rash; Denies abscess Neurologic Neurologic: Denies headache(s) or weakness Allergic/Immunologic Allergic/Immunologic ED: Denies mouth swelling or urticaria EXAM Physical Exam Const Positive well nourished and well developed General Appearance ED: well developed and NAD HEENT Reports moist mucous membranes Neck supple and no JVD Resp normal respiratory effort and clear to auscultation bilaterally Cardio regular rate and regular rhythm GI non-distended Palpation: soft and tender epigastric, LLQ, RLQ, LUQ, RUQ, periumbilical and suprapubic Extremity full ROM Neuro CN's II-XII intact bilaterally, moves all extremities and no sensory deficits noted Sensorium / Orientation: alert Motor Exam: strength 5/5 throughout Psych mental status grossly normal MDM MDM MDM Narrative Medical decision making narrative: Differential diagnosis includes hyperemesis gravidarum, gastroenteritis, pancreatitis, viral illness, and urinary tract infection. CBC will be obtained to assess for leukocytosis and anemia. Comprehensive metabolic profile will be obtained to assess for hepatic function, renal function, and electrolyte abnormality. Lipase will be obtained to assess for pancreatitis. Urinalysis will be obtained to assess for urinary tract infection and hematuria. Lab Data Attestation: I reviewed the patient's lab results. Lab results narrative: Hepatic profile was reviewed and was within normal limits. Lipase was reviewed and was normal at 13. Labs: Laboratory Results - last 24 hr 01/16/24 14:32 Sodium 138 Potassium 3.8 Chloride 107 Carbon Dioxide 27.0 Anion Gap 4 L BUN 5 L Creatinine 0.56 Est GFR (MDRD) Af Amer 176 Est GFR (MDRD) Non-Af 145 BUN/Creatinine Ratio 8.9 L Glucose 87 Calcium 9.1 Total Bilirubin 0.40 AST 16 ALT 33 Alkaline Phosphatase 48 Total Protein 7.4 Albumin 3.6 Globulin 3.8 Albumin/Globulin Ratio 0.9 Lipase 13 Treatment an (more content not included)... Normal [facility] 01-17-2024 CNPN Telephone (OBGYWM) LUZMARIA HEARN ([id number]) 1 F Date Time Provider Department 01/17/24 EVIE MONTES During your visit today, we recorded the following information about you: Evie Montes APRN.NITZA 01/17/2024 8:14 AM Signed Please notify patient: [...] in nurse phone room. SAFIA Thomas Trisha, SAFIA 01/17/2024 10:07 AM Signed Health department requested chlamydia treatment information. Form faxed. Leave open for patient to call back. SAFIA Dutton Teresa, RN 01/17/2024 11:10 AM Addendum Patient given message. Patient states that she was seen at [facility] for NANDV yesterday-still not kept any fluids down. She refuses to go back to [facility] because she feels that they get mad at her because they feel the shoudn't be doing anything more-the that OB should be managing this. She will call us back if she cannot keep the medication down. She is aware of importance of her partner getting treated. Please advise. Evie Montes APRN.NITZA 01/17/2024 11:40 AM Signed Patient has follow up scheduled for tomorrow to discuss this. Evie Montes APRN.CNP Allergies As of Date: 01/17/2024 Noted Allergy Reaction MORPHINE 01/11/2024 8 - GI Upset Date Reviewed: 01/15/2024 Reviewed by: Evie Montes APRN.CNP - Fully Assessed Reason for Visit: Results [...] Encounter Status:Closed by EVIE MONTES on 01/17/24 Normal [facility] Metabolic Prof ilon 01-17-2024 Bilirubin [Mass/Vol] 0.40 mg/dL Normal 0.20-1.00 [facility] Comment on above: Order Comment: RESUL T(S) PREVIOUSLY REPORTED ON MANUAL REQUISITION DURING DOWNTIME. Result Comment: For patients on eltrombopag therapy, use of Dimension [place] TBIL is not recommended. Performed By: #### L 501.2450, L500.4050 #### [facility] [address] [place], [place], [address] Chloride [Moles/Vol] 107 mmol/L Normal 98-107 [facility] Comment on above: Order Comment: RESUL T(S) PREVIOUSLY REPORTED ON MANUAL REQUISITION DURING DOWNTIME. Performed By: #### L 501.2450, L500.4050 #### [facility] [address] [place], [address] CO2 [Moles/Vol] 27.0 mmol/L Normal 21.0-32.0 [facility] Comment on above: Order Comment: RESUL T(S) PREVIOUSLY REPORTED ON MANUAL REQUISITION DURING DOWNTIME. Performed By: #### L 501.2450, L500.4050 #### [facility] [address] [place], [address] GAP 4 Low 5-15 [facility] Comment on above: Order Comment: RESUL T(S) PREVIOUSLY REPORTED ON MANUAL REQUISITION DURING DOWNTIME. Performed By: #### L 501.2450, L500.4050 #### [facility] [address] [place], [address] Potassium [Moles/Vol] 3.8 mmol/L Normal 3.5-5.1 [facility] Comment on above: Order Comment: RESUL T(S) PREVIOUSLY REPORTED ON MANUAL REQUISITION DURING DOWNTIME. Performed By: #### L 501.2450, L500.4050 #### [facility] [address] [place], [address] Sodium [Moles/Vol] 138 mmol/L Normal 136-145 [facility] Comment on above: Order Comment: RESUL T(S) PREVIOUSLY REPORTED ON MANUAL REQUISITION DURING DOWNTIME. Performed By: #### L 501.2450, L500.4050 #### [facility] [address] [place], [address] Albumin [Mass/Vol] 3.6 g/dL Normal 3.2-5.0 [facility] Comment on above: Order Comment: RESUL T(S) PREVIOUSLY REPORTED ON MANUAL REQUISITION DURING DOWNTIME. Performed By: #### L 501.2450, L500.4050 #### [facility] [address] [place], [address] Albumin/Globulin [Mass ratio] 0.9 {ratio} Normal 0.9-2.4 [facility] Comment on above: Order Comment: RESUL T(S) PREVIOUSLY REPORTED ON MANUAL REQUISITION DURING DOWNTIME. Performed By: #### L 501.2450, L500.4050 #### [facility] [address] [place], [address] ALK P 48 U/L Normal 45-117 [facility] Comment on above: Order Comment: RESUL T(S) PREVIOUSLY REPORTED ON MANUAL REQUISITION DURING DOWNTIME. Performed By: #### L 501.2450, L500.4050 #### [facility] [address] [place], [address] ALT [Catalytic activity/Vol] 33 U/L Normal 13-56 [facility] Comment on above: Order Comment: RESUL T(S) PREVIOUSLY REPORTED ON MANUAL REQUISITION DURING DOWNTIME. Performed By: #### L 501.2450, L500.4050 #### [facility] [address] [place], [address] AST [Catalytic activity/Vol] 16 U/L Normal 15-37 [facility] Comment on above: Order Comment: RESUL T(S) PREVIOUSLY REPORTED ON MANUAL REQUISITION DURING DOWNTIME. Performed By: #### L 501.2450, L500.4050 #### [facility] [address] [place], [address] BUN/CRE 8.9 RATIO Low 10-20 [facility] Comment on above: Order Comment: RESUL T(S) PREVIOUSLY REPORTED ON MANUAL REQUISITION DURING DOWNTIME. Performed By: #### L 501.2450, L500.4050 #### [facility] [address] [place], [address] CA,Total 9.1 mg/dL Normal 8.5-10.1 [facility] Comment on above: Order Comment: RESUL T(S) PREVIOUSLY REPORTED ON MANUAL REQUISITION DURING DOWNTIME. Performed By: #### L 501.2450, L500.4050 #### [facility] [address] [place], [address] Creatinine [Mass/Vol] 0.56 mg/dL Normal 0.55-1.02 [facility] Comment on above: Order Comment: RESUL T(S) PREVIOUSLY REPORTED ON MANUAL REQUISITION DURING DOWNTIME. Result Comment: The validity of the calculated GFR GFRAA in patients over 70 years has not been determined. Clinical correlation is essential. Performed By: #### L 501.2450, L500.4050 #### [facility] [address] [place], [address] EST GFR - AA 176 mL/min Normal >60 [facility] Comment on above: Order Comment: RESUL T(S) PREVIOUSLY REPORTED ON MANUAL REQUISITION DURING DOWNTIME. Performed By: #### L 501.2450, L500.4050 #### [facility] [address] [place], [address] GFR/1.73 sq M.predicted among non-blacks MDRD (S/P/Bld) [Vol rate/Area] 145 mL/min/{1.73_m2} Normal >60 [facility] Comment on above: Order Comment: RESUL T(S) PREVIOUSLY REPORTED ON MANUAL REQUISITION DURING DOWNTIME. Performed By: #### L 501.2450, L500.4050 #### [facility] [address] [place], [address] Globulin (S) [Mass/Vol] 3.8 g/dL Normal 2.2-4.2 [facility] Comment on above: Order Comment: RESUL T(S) PREVIOUSLY REPORTED ON MANUAL REQUISITION DURING DOWNTIME. Performed By: #### L 501.2450, L500.4050 #### [facility] [address] [place], [address] Glucose [Mass/Vol] 87 mg/dL Normal 74-106 [facility] Comment on above: Order Comment: RESUL T(S) PREVIOUSLY REPORTED ON MANUAL REQUISITION DURING DOWNTIME. Performed By: #### L 501.2450, L500.4050 #### [facility] [address] [place], [address] T PROT 7.4 g/dL Normal 6.4-8.2 [facility] Comment on above: Order Comment: RESUL T(S) PREVIOUSLY REPORTED ON MANUAL REQUISITION DURING DOWNTIME. Performed By: #### L 501.2450, L500.4050 #### [facility] [address] [place], [address] Urea nitrogen [Mass/Vol] 5 mg/dL Low 7-18 [facility] Comment on above: Order Comment: RESUL T(S) PREVIOUSLY REPORTED ON MANUAL REQUISITION DURING DOWNTIME. Performed By: #### L 501.2450, L500.4050 #### [facility] [address] [place], [address] Lipaseon 01-17-2024 Lipase [Catalytic activity/Vol] 13 U/L Normal 13-75 [facility] Comment on above: Order Comment: RESUL T(S) PREVIOUSLY REPORTED ON MANUAL REQUISITION DURING DOWNTIME. Result Comment: Tammy schmitt note: LIPASE revised reference range effective 23. New Lipase methodology. Expected to produce lower values than the previous assay method. NEW Reference Range: 13 - 75 U/L Performed By: #### L 501.2450, L500.4050 #### [facility] [address] [place], [address] .GFRon 01-16-2024 GFR 208 ml/min/1.73sqm Normal [facility] ([place]) Comment on above: Result Comment: GFR Population [...] 15 mL/min/1.73 square meters Performed By: #### Yoesf PEREZ, BMP #### [address] [address] GFR Non- 171 ml/min/1.73sqm Normal [facility] ([place]) Comment on above: Result Comment: GFR Population [...] 15 mL/min/1.73 square meters Performed By: #### Yosef PEREZ, BMP #### [address] [address] BMPon 01-16-2024 BUN/Creatinine Ratio 13 ratio Normal 7-27 [facility] ([place]) Comment on above: Performed By: #### Yosef PEREZ, BMP #### [address] [address] Calcium [Mass/Vol] 8.7 mg/dL Normal 8.4-10.2 [facility] ([place]) Comment on above: Performed By: #### Yosef PEREZ, BMP #### [address] [address] Chloride [Moles/Vol] 101 mmol/L Normal 98-107 [facility] ([place]) Comment on above: Performed By: #### Yosef PEREZ, BMP #### [address] [address] CO2 [Moles/Vol] 23 mmol/L Normal 22-29 [facility] ([place]) Comment on above: Performed By: #### Yosef PEREZ, BMP #### [address] [address] Creatinine [Mass/Vol] 0.46 mg/dL Low 0.55-1.02 [facility] ([place]) Comment on above: Performed By: #### Yosef PEREZ, BMP #### [place] [address] [place], [place] [address] Electrolyte Balance 11.0 mEq/L Normal 4.0-15.0 [facility] ([place]) Comment on above: Performed By: #### Yosef PEREZ, BMP #### [address] [address] Glucose [Mass/Vol] 91 mg/dL Normal 70-105 [facility] ([place]) Comment on above: Performed By: #### Yosef PEREZ, BMP #### [address] [address] Potassium [Moles/Vol] 4.0 mmol/L Normal 3.5-5.1 [facility] ([place]) Comment on above: Performed By: #### Yosef PEREZ, BMP #### [address] [address] Sodium [Moles/Vol] 135 mmol/L Low 136-145 [facility] ([place]) Comment on above: Performed By: #### Yosef PEREZ, BMP #### [address] [address] Urea nitrogen [Mass/Vol] 6 mg/dL Low 7-18 [facility] ([place]) Comment on above: Performed By: #### Yosef PERZE, BMP #### [address] [address] Jenny 01-16-2024 NITZAN Telephone (OBGYWM) LUZMARIA HEARN ([id number]) 1 F Date Time Provider Department 01/16/24 JACKIE CANDELARIA During your visit today, we recorded the following information about you: Cielo Leigh RN 01/16/2024 12:21 PM Signed Patient 8w3d [...] or Monday. Thank you, Jackie Candelaria APRN.CNM Cielo Leigh RN 01/16/2024 1:48 PM Signed Left message to call office. SAFIA Downs Danielle, RN 01/16/2024 2:05 PM Signed Spoke with patient. She is in ED now and scheduled for f/u . Gio Hammond RN Allergies As of Date: 01/16/2024 Noted Allergy Reaction MORPHINE 01/11/2024 8 - GI Upset Date Reviewed: 01/15/2024 Reviewed by: Evie Montes APRN.TRIAGE REGISTERED NURSE - Fully Assessed Reason for Visit: Nausea [...] Status:Closed by GIO HAMMOND on 01/16/24 Normal [facility] LABORATORYOrdered By: SYSTEM SYSTEM on 01-16-2024 Calcium [Mass/Vol] 8.7 mg/dL Normal 8.4 - 10. 2 mg/dL AO ADM SS Chloride [Moles/Vol] 101 mmol/L Normal 98 - 10 7 mmol/L AO ADM SS CO2 [Moles/Vol] 23 [...] No further workup Normal urogenital sarahi: Normal [facility] Comment on above: Performed By: #### 6 30-4 ####[facility] LABCLIA [id number] [place] [address] [place] C. trachomatis+N. gonorrhoea e DNA LILIA+probe Ql (Unsp spec)on 01-15-2024 C. trachomatis rRNA LILIA+probe Ql (Unsp spec) Positive Abnormal Negative for Chlamydia trachomatis by amplificaton [facility] Comment on above: Order Comment: Speci men Type: SWABOrdering Facility: [facility] Address: [address] [place] [address] Performed By: #### 3 6902-5 ####[facility] LABCLIA [id number] [place] [address] [place] N. gonorrhoeae rRNA LILIA+probe Ql (Unsp spec) Negative Normal Negative for Neisseria gonorrhoeae by amplification [facility] Comment on above: Order Comment: Speci men Type: SWABOrdering Facility: [facility] Address: [address] [place] [address] Performed By: #### 3 6902-5 ####[facility] LABCLIA [id number] [place] [address] [place] No Panel Informationon 01-14 [facility] PAP TESTon 01-15-2024 ADEQUACY Normal [facility] Comment on above: Order Comment: Speci men Type: FLUID SPECIMENOrdering Facility: [facility] Address: [address] [place] [address] Result Comment: Sati sfactory for interpretation No endocervical component Performed By: #### L [id number] ####[facility] LABCLIA [id number] [place] [address] [place] CASE REPORT Normal [facility] Comment on above: Order Comment: Speci men Type: FLUID SPECIMENOrdering Facility: [facility] Address: [address] [place] [address] Result Comment: Gyne cologic Cytology Report Case: [id number] Authorizing Provider: Evie Montes APRN.TRIAGE REGISTERED NURSE Collected: 01/15/2024 12:15 PM Ordering Location: OB/Gynecology Received: 01/15/2024 03:29 PM First Screen: [place], [place], [place], ASCP Specimen: Pap Test, ThinPrep, Cervix Performed By: #### L [id number] ####[facility] LABCLIA [id number] [place] [address] [place] CLINICAL HISTORY, CYTOLOGY, FIELD ADJUSTER Routine Exam Normal [facility] Comment on above: Order Comment: Speci men Type: FLUID SPECIMENOrdering Facility: [facility] Address: [address] [place] [address] Performed By: #### L [id number] ####[facility] LABCLIA [id number] [place] [address] [place] CYTOLOGY PAP OTHER INT Predominance of coccobacilli consistent with shift in vaginal sarahi Normal [facility] Comment on above: Order Comment: Speci men Type: FLUID SPECIMENOrdering Facility: [facility] Address: [address] [place] [address] Performed By: #### L [id number] ####[facility] LABCLIA [id number] [place] [address] [place] FINAL PERFORMING LAB Normal [facility] Comment on above: Order Comment: Speci men Type: FLUID SPECIMENOrdering Facility: [facility] Address: [address] [place] [address] Result Comment: Tech nical component, warper creeler screening performed at [facility], [address] [place] [address] CLIA# [id number] Diagnostic interpretation performed at [facility], [address] [place], [place] [address] CLIA# [id number] Pump Press Operator: Randal Florez M.D. Performed By: #### L [id number] ####[facility] LABCLIA [id number] [place] [address] [place] HPV REFLEX HPV if Atypical Normal [facility] Comment on above: Order Comment: Speci men Type: FLUID SPECIMENOrdering Facility: [facility] Address: [address] [place] [address] Performed By: #### L [id number] ####[facility] LABCLIA [id number] [place] [address] [place] INTERPRETATION, CYTOLOGY, FIELD ADJUSTER Normal [facility] Comment on above: Order Comment: Speci men Type: FLUID SPECIMENOrdering Facility: [facility] Address: [address] [place] [address] Result Comment: Nega tive for intraepithelial lesion or malignancy. Performed By: #### L [id number] ####[facility] LABCLIA [id number] [place] [address] [place] LMP 11/18/2023 Normal [facility] Comment on above: Order Comment: Speci men Type: FLUID SPECIMENOrdering Facility: [facility] Address: [address] [place] [address] Performed By: #### L [id number] ####[facility] LABCLIA [id number] [place] [address] [place] PAP DISCLAIMER COMMENT The Pap Smear is a screening test for cervical cancer. False negative results occur with all screening tests, emphasizing the need for rescreening at recommended intervals, and clinical correlation. Normal [facility] Comment on above: Order Comment: Speci men Type: FLUID SPECIMENOrdering Facility: [facility] Address: [address] [place] [address] Performed By: #### L [id number] ####[facility] LABCLIA [id number] [place] [address] [place] PAP WELDER SETTER ELECTRON BEAM MACHINE COMMENT This specimen has be en analyzed by the ThinPrep Imaging System, an automated imaging and review system, which assists the laboratory in evaluating cells on ThinPrep Pap tests. Following automated imaging, selected donahue from every slide are reviewed by a warper creeler. Normal [facility] Comment on above: Order Comment: Speci men Type: FLUID SPECIMENOrdering Facility: [facility] Address: [address] [place] [address] Performed By: #### L [id number] ####[facility] LABCLIA [id number] [id number] [address] [place] Absolute lymphocyte countOrd ered By: Sree Pereira on 01-08-2024 Lymphocytes Auto (Unsp spec) [#/Vol] 3.13 10*3/uL 0.83-4.51 [facility] Automated lymphocyte count a s percentage of total leukocytesOrdered By: Sree Pereira on 01-08-2024 Lymphocytes/100 WBC Auto (Unsp spec) 20.1 % 19-41 [facility] Basophil percentageOrdered B y: Sree Pereira on 01-08-2024 Basophil percentage 25-50 SEEN /hpf 0-5 [facility] Basophils/100 WBC (Bld) 0.5 % 0-1 [facility] Bilirubin [Mass/Vol] 0.90 mg/dL 0.20-1.00 [facility] Comment on above: For patients on eltr ombopag therapy, use of Dimension [place] TBIL is not recommended. Chloride [Moles/Vol] 107 mmol/L 98-107 [facility] Eosinophils/100 WBC (Bld) 0.6 % 0-5 [facility] Glucose [Mass/Vol] 92 mg/dL 74-106 [facility] Hemoglobin (Bld) [Mass/Vol] 14.4 g/dL 12.0-15.0 [facility] Monocytes/100 WBC (Bld) 7.2 % 0-10 [facility] Neutrophils (Bld) [#/Vol] 11.1 10*3/uL 2.0-7.7 [facility] Neutrophils/100 WBC (Bld) 71.0 % 47-70 [facility] Potassium [Moles/Vol] 3.5 mmol/L 3.5-5.1 [facility] Protein [Mass/Vol] 8.3 g/dL 6.4-8.2 [facility] Sodium [Moles/Vol] 136 mmol/L 136-145 [facility] WBC (Bld) [#/Vol] 15.6 10*3/uL 4.4-11.0 [facility] Bilirubin Test strip Ql (U)O rdered By: Sree Pereira on 01-08-2024 Bilirubin Ql (U) Negative Negative [facility] CBC W/Diff, Automatedon 0 Absolute Lymph 3.13 X10 3/uL Normal 0.83-4.51 [facility] Comment on above: Performed By: #### L 501.1105, L501.1400, L501.4100, L501.4405, L501.0900 #### [facility] [address] [place], [address] Absolute Neut 11.1 X10 3/uL High 2.0-7.7 [facility] Comment on above: Performed By: #### L 501.1105, L501.1400, L501.4100, L501.4405, L501.0900 #### [facility] [address] [place], [address] Basophils/100 WBC (Bld) 0.5 % Normal 0-1 [facility] Comment on above: Performed By: #### L 501.1105, L501.1400, L501.4100, L501.4405, L501.0900 #### [facility] [address] [place], [address] Eosinophils/100 WBC (Bld) 0.6 % Normal 0-5 [facility] Comment on above: Performed By: #### L 501.1105, L501.1400, L501.4100, L501.4405, L501.0900 #### [facility] [address] [place], [address] Erythrocyte distribution width (RBC) [Ratio] 12.9 % Normal 11.6-14.6 [facility] Comment on above: Performed By: #### L 501.1105, L501.1400, L501.4100, L501.4405, L501.0900 #### [facility] [address] [place], [address] Hematocrit (Bld) [Volume fraction] 42.6 % Normal 37-47 [facility] Comment on above: Performed By: #### L 501.1105, L501.1400, L501.4100, L501.4405, L501.0900 #### [facility] [address] [place], [address] Hemoglobin (Bld) [Mass/Vol] 14.4 g/dL Normal 12.0-15.0 [facility] Comment on above: Performed By: #### L 501.1105, L501.1400, L501.4100, L501.4405, L501.0900 #### [facility] [address] [place], [address] IG% 0.600 Normal 0.0-0.9 [facility] Comment on above: Result Comment: IG% - Immature Granulocytes (promyelocytes, myelocytes and metamyelocytes) > 1% indicates that a LEFT SHIFT is Present. Performed By: #### L 501.1105, L501.1400, L501.4100, L501.4405, L501.0900 #### [facility] [address] [place], [address] Lymphocytes/100 WBC (Bld) 20.1 % Normal 19-41 [facility] Comment on above: Performed By: #### L 501.1105, L501.1400, L501.4100, L501.4405, L501.0900 #### [facility] [address] [place], [address] MCH (RBC) [Entitic mass] 28.6 pg Normal 27.0-32.0 [facility] Comment on above: Performed By: #### L 501.1105, L501.1400, L501.4100, L501.4405, L501.0900 #### [facility] [address] [place], [address] MCHC (RBC) [Mass/Vol] 33.8 g/dL Normal 32-36 [facility] Comment on above: Performed By: #### L 501.1105, L501.1400, L501.4100, L501.4405, L501.0900 #### [facility] [address] [place], [address] MCV (RBC) [Entitic vol] 84.7 fL Normal 81-99 [facility] Comment on above: Performed By: #### L 501.1105, L501.1400, L501.4100, L501.4405, L501.0900 #### [facility] [address] [place], [address] Monocytes/100 WBC (Bld) 7.2 % Normal 0-10 [facility] Comment on above: Performed By: #### L 501.1105, L501.1400, L501.4100, L501.4405, L501.0900 #### [facility] [address] [place], [address] Neutrophils/100 WBC (Bld) 71.0 % High 47-70 [facility] Comment on above: Performed By: #### L 501.1105, L501.1400, L501.4100, L501.4405, L501.0900 #### [facility] [address] [place], [address] Nucleated RBC (Bld) [#/Vol] 0 10*3/uL Normal 0-5 [facility] Comment on above: Performed By: #### L 501.1105, L501.1400, L501.4100, L501.4405, L501.0900 #### [facility] [address] [place], [address] Platelet mean volume (Bld) [Entitic vol] 9.3 fL Normal 6.2-12.0 [facility] Comment on above: Performed By: #### L 501.1105, L501.1400, L501.4100, L501.4405, L501.0900 #### [facility] [address] [place], [address] Platelets (Bld) [#/Vol] 402 10*3/uL Normal 150-450 [facility] Comment on above: Performed By: #### L 501.1105, L501.1400, L501.4100, L501.4405, L501.0900 #### [facility] [address] [place], [address] RBC (Bld) [#/Vol] 5.03 10*6/uL Normal 4.2-5.4 [facility] Comment on above: Performed By: #### L 501.1105, L501.1400, L501.4100, L501.4405, L501.0900 #### [facility] [address] [place], [address] RDW SD 39.4 fl Normal 35.1-43.9 [facility] Comment on above: Performed By: #### L 501.1105, L501.1400, L501.4100, L501.4405, L501.0900 #### [facility] [address] [place], [address] WBC (Bld) [#/Vol] 15.6 10*3/uL High 4.4-11.0 [facility] Comment on above: Performed By: #### L 501.1105, L501.1400, L501.4100, L501.4405, L501.0900 #### [facility] [address] [place], [address] Comprehensive Metabolic Prof [facility] 01-08-2024 Albumin [Mass/Vol] 4.1 g/dL Normal 3.2-5.0 [facility] Comment on above: Performed By: #### L 100.0100, L500.4050, L700.8000 #### [facility] [address] [place], [address] Albumin/Globulin [Mass ratio] 1.0 {ratio} Normal 0.9-2.4 [facility] Comment on above: Performed By: #### L 100.0100, L500.4050, L700.8000 #### [facility] [address] [place], [address] ALK P 44 U/L Low 45-117 [facility] Comment on above: Performed By: #### L 100.0100, L500.4050, L700.8000 #### [facility] [address] [place], [address] ALT [Catalytic activity/Vol] 67 U/L High 13-56 [facility] Comment on above: Performed By: #### L 100.0100, L500.4050, L700.8000 #### [facility] [address] [place], [address] AST [Catalytic activity/Vol] 39 U/L High 15-37 [facility] Comment on above: Performed By: #### L 100.0100, L500.4050, L700.8000 #### [facility] [address] [place], [address] Bilirubin [Mass/Vol] 0.90 mg/dL Normal 0.20-1.00 [facility] Comment on above: Result Comment: For patients on eltrombopag therapy, use of Dimension [place] TBIL is not recommended. Performed By: #### L 100.0100, L500.4050, L700.8000 #### [facility] [address] [place], [address] BUN/CRE 8.8 RATIO Low 10-20 [facility] Comment on above: Performed By: #### L 100.0100, L500.4050, L700.8000 #### [facility] [address] [place], [address] CA,Total 9.7 mg/dL Normal 8.5-10.1 [facility] Comment on above: Performed By: #### L 100.0100, L500.4050, L700.8000 #### [facility] [address] [place], [address] Chloride [Moles/Vol] 107 mmol/L Normal 98-107 [facility] Comment on above: Performed By: #### L 100.0100, L500.4050, L700.8000 #### [facility] [address] [place], [address] CO2 [Moles/Vol] 24.0 mmol/L Normal 21.0-32.0 [facility] Comment on above: Performed By: #### L 100.0100, L500.4050, L700.8000 #### [facility] [address] [place], [address] Creatinine [Mass/Vol] 0.68 mg/dL Normal 0.55-1.02 [facility] Comment on above: Result Comment: The validity of the calculated GFR GFRAA in patients over 70 years has not been determined. Clinical correlation is essential. Performed By: #### L 100.0100, L500.4050, L700.8000 #### [facility] [address] [place], [address] ECRCL 150.36 ml/min Normal [facility] Comment on above: Performed By: #### L 100.0100, L500.4050, L700.8000 #### [facility] [address] [place], [address] EST GFR - AA 139 mL/min Normal >60 [facility] Comment on above: Result Comment: Afri can Ken[place] GFR Calc Performed By: #### L 100.0100, L500.4050, L700.8000 #### [facility] [address] [place], [address] GAP 5 Normal 5-15 [facility] Comment on above: Performed By: #### L 100.0100, L500.4050, L700.8000 #### [facility] [address] [place], [address] GFR/1.73 sq M.predicted among non-blacks MDRD (S/P/Bld) [Vol rate/Area] 115 mL/min/{1.73_m2} Normal >60 [facility] Comment on above: Result Comment: Non- GFR Calc Performed By: #### L 100.0100, L500.4050, L700.8000 #### [facility] [address] [place], [address] Globulin (S) [Mass/Vol] 4.2 g/dL Normal 2.2-4.2 [facility] Comment on above: Performed By: #### L 100.0100, L500.4050, L700.8000 #### [facility] [address] [place], [address] Glucose [Mass/Vol] 92 mg/dL Normal 74-106 [facility] Comment on above: Performed By: #### L 100.0100, L500.4050, L700.8000 #### [facility] [address] [place], [address] Potassium [Moles/Vol] 3.5 mmol/L Normal 3.5-5.1 [facility] Comment on above: Performed By: #### L 100.0100, L500.4050, L700.8000 #### [facility] [address] [place], [address] Sodium [Moles/Vol] 136 mmol/L Normal 136-145 [facility] Comment on above: Performed By: #### L 100.0100, L500.4050, L700.8000 #### [facility] [address] [place], [address] T PROT 8.3 g/dL High 6.4-8.2 [facility] Comment on above: Performed By: #### L 100.0100, L500.4050, L700.8000 #### [facility] [address] [place], [address] Urea nitrogen [Mass/Vol] 6 mg/dL Low 7-18 [facility] Comment on above: Performed By: #### L 100.0100, L500.4050, L700.8000 #### [facility] [address] [place], [address] Determination of erythrocyte mean corpuscular volume (MCV)Ordered By: Sree Pereira on 01-08-2024 MCV (RBC) [Entitic vol] 84.7 fL 81-99 [facility] Emergency Department Summary on 01-08-2024 Emergency Department Summary [facility] Medical Records Department [address] [place] [address] Emergency Department Summary 01/08/24 MR#: [id number] Acct: [id number] Name: LUZMARIA HEARN Rep #: [id number] : 2005 19 From: Sree Pereira DO PCP: Dr. Dusty Galeano MD Status:DEP ER Location: ED HPI History of Present Illness Chief Complaint: Nausea/Vomiting Informant: patient Narrative Narrative: 19-year-old female presenting to the emergency room chief complaint of nausea and vomiting. Patient states she is G2, P1 Ab0 at approximately 7 to 8 weeks. She states that her first child was delivered with [place] but they were unable to see her for this and so she has an upcoming appointment with [facility] (Dr. Araiza). She reports that she had some blood work done with them and her hCG level was increasing. Patient states that she had a pelvic ultrasound last month when she first found out she was . She was seen in the emergency department several days ago for nausea vomiting and has been taking Zofran without significant relief. She states that she continues to have vomiting and decreased p.o. intake and was advised to come back to emergency. Per the patient and review of the patient's chart she is a positive blood type. She states that she did have some spotting last month but has not had any vaginal bleeding or discharge since. She notes no upper abdominal pain. She has had prior cholecystectomy. She notes decreased bowel movements secondary to not eating anything. PFSH PFSH Home Medications ondansetron 4 mg disintegrating tablet 4 mg PO Q6H PRN PRN Nausea #20 tabs 01/08/24 [Rx Last Taken Unknown] promethazine 25 mg rectal suppository (Promethegan) 25 mg RECTAL Q6H PRN PRN Nausea ##15 01/08/24 [Rx Last Taken Unknown] Allergy/AdvReac Type Severity Reaction Status Date / Time No Known Allergies Allergy Verified 01/08/24 08:53 Surgical History History of cholecystectomy Social History Smoking Status: Never smoker ROS ROS ED Constitutional Constitutional ED: Denies chills, fever(s) or weight loss Eyes Eyes: Denies change in vision or diplopia ENT ENT ED: Denies ear pain, rhinorrhea or sore throat Cardiovascular Cardiovascular: Denies chest pain, orthopnea, palpitations or racing heartbeat Respiratory/Chest Respiratory/Chest: Denies cough, dyspnea or orthopnea Gastrointestinal Gastrointestinal: Reports nausea and vomiting; Denies abdominal pain or diarrhea Genitourinary Genitourinary ED: Denies dysuria, hematuria or urinary frequency Musculoskeletal Musculoskeletal: Denies arthralgias, back pain or myalgias Integumentary Denies abscess or rash Neurologic Neurologic: Denies headache(s) or weakness Psychiatric Psychiatric: Denies anxiety, depression, suicidal ideation or suicidal thoughts Endocrine Endocrinology: Denies polydipsia, polyphagia or polyuria Allergic/Immunologic Allergic/Immunologic ED: Denies mouth swelling, tongue swelling or urticaria EXAM Physical Exam Const Vital Signs: 01/08/24 08:54 01/08/24 13:45 Temperature 96.9 F L 96.9 F L Temperature Source Temporal Pulse Rate 95 95 Respiratory Rate 14 14 Blood Pressure 136/73 H 136/73 H Blood Pressure Mean 94 94 Pulse Ox 94 94 Oxygen Delivery Method Room Air Positive well nourished, well developed and obese General Appearance ED: well developed Nutritional Appearance: obese HEENT Reports normocephalic, head/scalp atraumatic and moist mucous membranes Eyes PERRL and EOMs intact bilaterally Neck no lymphadenopathy, supple and no JVD Resp normal respiratory effort and clear to auscultation bilaterally Cardio regular rate, regular rhythm and no murmurs GI normal to inspection, nondistended, normoactive bowel sounds and non-tender Palpation: soft Back/Spine no CVA tenderness and normal ROM Extremity normal to inspection General Extremety ED: Negative for edema General Extremity: Negative for edema Neuro oriented x3 and CN's II-XII intact bilaterally Sensorium / Orientation: alert Motor Exam: strength 5/5 throughout Psych mental status grossly normal Mood Affect: Negative for depressed or tearful Skin no rashes or lesions noted and no wounds MDM MDM MDM Narrative Medical decision making narrative: Pelvic ultrasound demonstrates a single live intrauterine measuring approximately 6 weeks and 5 days. Basic blood work was obtained shows a white count of 15.6. Glucose 92 quantitative hCG 10044. Transaminases slightly elevated with an AST of 39 ALT of 67 rather nonspecific. Urinalysis demonstrates 25-50 white cells 5-10 squamous cells 1+ bacteria positive ketones. Nitrates are negat (more content not included)... Normal [facility] Erythrocyte distribution wid th ratioOrdered By: Sree Pereira on 01-08-2024 Erythrocyte distribution width (RBC) [Ratio] 12.9 % 11.6-14.6 [facility] Erythrocyte distribution wid th standard deviationOrdered By: Sree Pereira on 01-08-2024 Erythrocyte distribution width (RBC) [Entitic vol] 39.4 fL 35.1-43.9 [facility] Hematocrit Auto (Bld) [Volum e fraction]Ordered By: Sree Pereira on 01-08-2024 Hematocrit (Bld) [Volume fraction] 42.6 % 37-47 [facility] Immature granulocytes/100 WB C Auto (Bld)Ordered By: Sree Pereira on 01-08-2024 Immature granulocytes/100 WBC (Bld) 0.600 % 0.0-0.9 [facility] Comment on above: IG% - Immature Granu locytes (promyelocytes, myelocytes and metamyelocytes) > 1% indicates that a LEFT SHIFT is Present. Ketones Test strip Ql (U)Ord ered By: Sree Pereira on 01-08-2024 Ketones Ql (U) 150 mg/dl Negative [facility] Comment on above: CRITICAL VALUE *HCRI TICAL VALUE VERIFIED. CALLED TO JENNIFFER BAIG (ER)01/08/24 1117 Wayne Bautista.RESULTS READ BACK BY SAME. Laboratory - Chemistry and C hemistry - challengeOrdered By: Sree Pereira on 01-08-2024 Albumin/Globulin [Mass ratio] 1.0 {ratio} 0.9-2.4 [facility] ALP [Catalytic activity/Vol] 44 U/L 45-117 [facility] ALT [Catalytic activity/Vol] 67 U/L 13-56 [facility] CO2 [Moles/Vol] 24.0 mmol/L 21.0-32.0 [facility] Globulin (S) [Mass/Vol] 4.2 g/dL 2.2-4.2 [facility] Urea nitrogen/Creatinine [Mass ratio] 8.8 mg/mg 10-20 [facility] Laboratory - Hematology and Cell countsOrdered By: Sree Pereira on 01-08-2024 MCH (RBC) [Entitic mass] 28.6 pg 27.0-32.0 [facility] MCHC (RBC) [Mass/Vol] 33.8 g/dL 32-36 [facility] Nucleated RBC/100 WBC (Bld) [Ratio] 0 % 0-5 [facility] Platelet mean volume (Bld) [Entitic vol] 9.3 fL 6.2-12.0 [facility] Platelets (Bld) [#/Vol] 402 10*3/uL 150-450 [facility] Mucus LM Ql (Urine sed)Order ed By: Sree Pereira on 01-08-2024 Mucus Ql (Urine sed) 2+ /hpf [facility] Nitrite Test strip Ql (U)Ord ered By: Sree Pereira on 01-08-2024 Nitrite Ql (U) Negative Negative [facility] No Panel InformationOrdered By: Sree Pereira on 01-08-2024 Urine RBC 0-5 SEEN /hpf 0-5 [facility] Estimated Creatinine Clearance Calc 150.36 ml/min [facility] Estimated GFR (MDRD) Amer 139 mL/min >60 [facility] Comment on above: GFR Calc Estimated GFR (MDRD) Non-Af Amer 115 mL/min >60 [facility] Comment on above: Non- GFR Calc Protein Test strip Ql (U)Ord ered By: Sree Pereira on 01-08-2024 Protein Ql (U) 30 mg/dl Negative [facility] RBC Auto (Bld) [#/Vol]Ordere d By: Sree Pereira on 01-08-2024 RBC (Bld) [#/Vol] 5.03 10*6/uL 4.2-5.4 [facility] Serum or plasma calcium maribell urement (mass/volume)Ordered By: Sree Pereira on 01-08-2024 Calcium [Mass/Vol] 9.7 mg/dL 8.5-10.1 [facility] Serum or plasma choriogonado tropin detectionOrdered By: Sree Pereira on 01-08-2024 HCG ( test[place]l [address] mIU/mL <4 [facility] Comment on above: hCG levels with Gest ational AgeGestational Age hCG mIU/mL (IU/L)0.2 - 1 week 5 - 501-2 weeks 50 - 5002-3 weeks 100 - 33557-7 weeks 500 - 142135-0 weeks 1000 - 998896-2 weeks 95023 - 100,0006-8 weeks 84372 - 200,0002-3 months 91482 - 100,000 Serum or plasma creatinine m easurement (mass/volume)Ordered By: Sree Pereira on 01-08-2024 Creatinine [Mass/Vol] 0.68 mg/dL 0.55-1.02 [facility] Comment on above: The validity of the calculated GFR & GFRAA in patients over 70 years has not been determined. Clinical correlation is essential. Serum or plasma urea nitroge n measurement (mass/volume)Ordered By: Sree Pereira on 01-08-2024 Urea nitrogen [Mass/Vol] 6 mg/dL 7-18 [facility] Squamous epithelial cells de tection in urine sediment by light microscopyOrdered By: Sree Pereira on 01-08-2024 Epithelial cells.squamous LM Ql (Urine sed) 5-10 SEEN /hpf 5-10 [facility] Thin prep Papanicolaou smear with manual screeningOrdered By: Sree Pereira on 01-08-2024 Thin prep Papanicolaou smear with manual screening 4.1 g/dL 3.2-5.0 [facility] Thin prep Papanicolaou smear with manual screening 39 U/L 15-37 [facility] Thin prep Papanicolaou smear with manual screening 5 5-15 [facility] Transvaginal w/Preg USon Transvaginal w/Preg US [facility] [address] [place] [address] Transvaginal w/Preg US MR#: [id number] Acct: [id number] Name: LUZMARIA HEARN Rep #: [id number] : 2005 F 19 From: Jacinda sahu MD PCP: Dr. Dusty Galeano MD Status: REG ER Study: Transvaginal w/Preg US Date of Exam: 01/08/24 Exam# [id number] Ordering [place]: [place] [id number] HISTORY: viability. LMP 11/18/2023. TECHNIQUE: Transvaginal pelvic ultrasound was performed. 48 images. COMPARISON: 12/28/2023. FINDINGS: UTERUS: 9.7 x 4.9 x 7 cm. RIGHT OVARY: 4.4 x 5.4 x 6.5 cm. 4.5 x 5.2 x 6 cm unilocular cyst, previously 4.8 x 5.1 x 5.5 cm. LEFT OVARY: 2.1 x 2.7 x 3.6 cm. No adnexal masses. FREE FLUID: Trace. INTRAUTERINE GESTATIONAL SAC: Single. Mean sac diameter 1.7 cm corresponding to 6 weeks 4 days. YOLK SAC: 4 mm. POLE: [place]-rump length 6.6 mm corresponding to 6 weeks 5 days. ESTIMATED DELIVERY DATE: 08/28/2024. HEART MOTION: 132 bpm. US/Transvaginal w/Preg US IMPRESSION: Intrauterine with an estimated gestational age of 6 weeks 5 days and heart tones demonstrated. 6 cm simple cyst in the right ovary, previously 5.5 cm. Trace free fluid in the pelvis, decreased from prior. Electronically Signed: Jacinda Little MD at 11:11 EST , CC: Dr. Sree Pereira DO; Dr. 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, [address] RBC 0-5 SEEN Normal 0-5 [facility] Comment on above: Order Comment: CLEAN CATCH Performed By: #### L 501.1105, L501.1400, L501.4100, L501.4405, L501.0900 #### [facility] [address] [place], [address] WBC 25-50 SEEN Normal 0-5 [facility] Comment on above: Order Comment: CLEAN CATCH Performed By: #### L 501.1105, L501.1400, L501.4100, L501.4405, L501.0900 #### [facility] [address] [place], [address] EPI,SQUAMOUS 5-10 SEEN Normal 5-10 [facility] Comment on above: Order Comment: CLEAN CATCH Performed By: #### L 501.1105, L501.1400, L501.4100, L501.4405, L501.0900 #### [facility] [address] [place], [address] Mucus Ql (Urine sed) 2+ /hpf Normal [facility] Comment on above: Order Comment: CLEAN CATCH Performed By: #### L 501.1105, L501.1400, L501.4100, L501.4405, L501.0900 #### [facility] [address] [place], [address] Urine blood detectionOrdered By: Sree Pereira on 01-08-2024 RBC Ql (U) 25 /ul Negative [facility] Urine clarityOrdered By: Jesús Pereira on 01-08-2024 Clarity (U) Sl. Cloudy Clear [facility] Urine color determinationOrd ered By: Sree Pereira on 01-08-2024 Color (U) Yellow Yellow [facility] Urine glucose detectionOrder ed By: Sree Pereira on 01-08-2024 Glucose Ql (U) Normal mg/dl Normal [facility] Urine leukocyte esterase det ection by dipstickOrdered By: Sree Pereira on 01-08-2024 Leukocyte esterase Test strip Ql (U) 500 /ul Negative [facility] Urine pHOrdered By: Sree goyal on 01-08-2024 pH (U) 6.0 [pH] 5.0 - 8.0 [facility] Urine sediment bacteria coun t by microscopy (number/high power field)Ordered By: Sree Pereira on 01-08-2024 Bacteria LM.HPF (Urine sed) [#/Area] 1 /[HPF] None Seen [facility] Urine specific gravity measu rementOrdered By: Sree Pereira on 01-08-2024 Specific gravity (U) [Rel density] 1.020 1.002-1.030 [facility] Urine urobilinogen measureme ntOrdered By: Sree Pereira on 01-08-2024 Urobilinogen Ql (U) 4 mg/dl Normal [facility] hCG Titer Quant., Serumon HCG QUANT. 99480 mIU/mL High 1-3 [facility] Comment on above: Result Comment: hCG levels with Gestational Age Gestational Age hCG mIU/mL (IU/L) 0.2 - 1 week 5 - 50 1-2 weeks 50 - 500 2-3 weeks 100 - 5000 3-4 weeks 500 - 20920 4-5 weeks 1000 - 44121 5-6 weeks 81914 - 100,000 6-8 weeks 67247 - 200,000 2-3 months 84135 - 100,000 Performed By: #### L 501.1105, L501.1400, L501.4100, L501.4405, L501.0900 #### [facility] [address] [place], [address] Basic Metabolic Profile (BMP )on 01-05-2024 BUN/CRE 11.0 RATIO Normal 10-20 [facility] Comment on above: Performed By: #### L 501.1105, L501.1400, L501.4100, L501.4405, L501.0900 #### [facility] [address] [place], [address] CA,Total 9.3 mg/dL Normal 8.5-10.1 [facility] Comment on above: Performed By: #### L 501.1105, L501.1400, L501.4100, L501.4405, L501.0900 #### [facility] [address] [place], [address] Chloride [Moles/Vol] 109 mmol/L High 98-107 [facility] Comment on above: Performed By: #### L 501.1105, L501.1400, L501.4100, L501.4405, L501.0900 #### [facility] [address] [place], [address] CO2 [Moles/Vol] 23.0 mmol/L Normal 21.0-32.0 [facility] Comment on above: Performed By: #### L 501.1105, L501.1400, L501.4100, L501.4405, L501.0900 #### [facility] [address] [place], [address] Creatinine [Mass/Vol] 0.64 mg/dL Normal 0.55-1.02 [facility] Comment on above: Result Comment: The validity of the calculated GFR GFRAA in patients over 70 years has not been determined. Clinical correlation is essential. Performed By: #### L 501.1105, L501.1400, L501.4100, L501.4405, L501.0900 #### [facility] [address] [place], [address] ECRCL 163.23 ml/min Normal [facility] Comment on above: Performed By: #### L 501.1105, L501.1400, L501.4100, L501.4405, L501.0900 #### [facility] [address] [place], [address] EST GFR - AA 151 mL/min Normal >60 [facility] Comment on above: Result Comment: Afri can [place] GFR Calc Performed By: #### L 501.1105, L501.1400, L501.4100, L501.4405, L501.0900 #### [facility] [address] [place], [address] GAP 5 Normal 5-15 [facility] Comment on above: Performed By: #### L 501.1105, L501.1400, L501.4100, L501.4405, L501.0900 #### [facility] [address] [place], [address] GFR/1.73 sq M.predicted among non-blacks MDRD (S/P/Bld) [Vol rate/Area] 125 mL/min/{1.73_m2} Normal >60 [facility] Comment on above: Result Comment: Non- GFR Calc Performed By: #### L 501.1105, L501.1400, L501.4100, L501.4405, L501.0900 #### [facility] [address] [place], [address] Glucose [Mass/Vol] 89 mg/dL Normal 74-106 [facility] Comment on above: Performed By: #### L 501.1105, L501.1400, L501.4100, L501.4405, L501.0900 #### [facility] [address] [place], [address] Potassium [Moles/Vol] 3.7 mmol/L Normal 3.5-5.1 [facility] Comment on above: Performed By: #### L 501.1105, L501.1400, L501.4100, L501.4405, L501.0900 #### [facility] [address] [place], [address] Sodium [Moles/Vol] 137 mmol/L Normal 136-145 [facility] Comment on above: Performed By: #### L 501.1105, L501.1400, L501.4100, L501.4405, L501.0900 #### [facility] [address] [place], [address] Urea nitrogen [Mass/Vol] 7 mg/dL Normal 7-18 [facility] Comment on above: Performed By: #### L 501.1105, L501.1400, L501.4100, L501.4405, L501.0900 #### [facility] [address] [place], [address] Basophil percentageOrdered B y: Dale Lázaro on 01-05-2024 Chloride [Moles/Vol] 109 mmol/L 98-107 [facility] Glucose [Mass/Vol] 89 mg/dL 74-106 [facility] Potassium [Moles/Vol] 3.7 mmol/L 3.5-5.1 [facility] Sodium [Moles/Vol] 137 mmol/L 136-145 [facility] Emergency Department Summary on 01-05-2024 Emergency Department Summary [facility] Medical Records Department [address] [place] [address] Emergency Department Summary 01/05/24 MR#: [id number] Acct: [id number] Name: LUZMARIA HEARN Rep #: [id number] : 2005 19 From: Dale Sesay MD PCP: Dr. Dusty Galeano MD Status:REG ER Location: ED HPI HPI - GI History of Present Illness Chief Complaint: Nausea/Vomiting Informant: patient Nausea/Vomiting/Emesis GI Symptom: Positive for Nausea and Vomiting Onset: Today and Yesterday Severity: Moderate Diarrhea/Melena/Hematoc hezia GI Symptom: Positive for Diarrhea; Negative for Melena or Hematochezia Onset: Today and Yesterday Stool Quality: Positive for Loose Severity: Mild Associated Symptoms Associated Symptoms: Negative for Dysuria, Frequency, Hematuria or Urgency Narrative Narrative: 19-year-old female G2, P1 Ab0 currently about 7 weeks . [facility] Prior cholecystectomy. States for the last 2 days she has had nausea vomiting and diarrhea. No send of abdominal pain. No dysuria. No fever. Feels dehydrated. 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 Prior similar symptoms: No Recent Illness/Hospitalization : No PFSH PFSH Medical History no medical history no medical history Home Medications ondansetron 4 mg disintegrating tablet 4 mg PO Q8H PRN PRN Nausea #10 tabs 01/05/24 [Rx Last Taken Unknown] ondansetron HCl 4 mg tablet 4 mg PO Q8H PRN nausea and vomiting 01/05/24 [History Last Taken Unknown] Allergy/AdvReac Type Severity Reaction Status Date / Time No Known Allergies Allergy Verified 01/05/24 08:39 Surgical History History of cholecystectomy Social History Smoking Status: Never smoker ROS ROS ED ROS Narrative Nausea, vomiting and diarrhea last 2 days. Review of Systems ROS Unobtainable: Denies due to encephalopathy Constitutional Constitutional ED: Denies chills or fever(s) ENT ENT ED: Denies ear pain Cardiovascular Cardiovascular: Denies chest pain Respiratory/Chest Respiratory/Chest: Denies cough or dyspnea Gastrointestinal Gastrointestinal: Reports diarrhea, nausea and vomiting; Denies abdominal pain, constipation or melena Genitourinary Genitourinary ED: Denies dysuria or hematuria Musculoskeletal Musculoskeletal: Denies arthralgias, back pain, myalgias or neck pain Integumentary Denies abscess or Abrasions Neurologic Neurologic: Denies headache(s) Psychiatric Psychiatric: Denies anxiety or depression Endocrine Endocrinology: Denies polydipsia or polyphagia Hematologic/Lymphatic Hematologic/Lymphatic: Denies easy bleeding, easy bruising or lymphadenopathy Allergic/Immunologic Allergic/Immunologic ED: Denies mouth swelling, tongue swelling or urticaria EXAM Physical Exam Narrative Exam Narrative: 19-year-old female vital signs stable afebrile. H EENT exam unremarkable except mild dry mucous members. Neck nontender no lymphadenopathy. Lungs clear to auscultation bilaterally. Heart regular rhythm rate about 70 no murmur. Chest wall and ribs nontender. Abdomen soft nontender. Nondistended. No obstruction. No hernia or mass. Back nontender. Moving all 4 extremities. Calves are nontender without edema or cords. 5 5 steel tier strength. Dorsi plantarflexion intact. Neurologically she is awake and alert no focal motor deficits. Const Vital Signs: 01/05/24 08:39 Temperature 98.2 F Temperature Source Temporal Pulse Rate 68 Respiratory Rate 14 Blood Pressure 133/75 H Blood Pressure Mean 94 Pulse Ox 98 Oxygen Delivery Method Room Air Positive well nourished and well developed; Negative for cachectic, contractures or unkempt General Appearance ED: well developed and NAD; Negative for unkempt, cachectic, contractures or pallor Nutritional Appearance: Negative for cachectic HEENT Reports dry mucous membranes; Denies moist mucous membranes normocephalic and atraumatic; Negative for trauma or tenderness Mouth ED: Yes dry mucous membranes Mouth: dry mucous membranes Eyes PERRL and EOMs intact bilaterally General Eye ED: Negative for pale conjunctiva or scleral icterus Neck no lymphadenopathy, supple and no JVD General: Negative for tenderness Carotids: Negative for other Lymph Lymphatic: Negative for other Resp normal respiratory effort and clear to auscultation bilaterally Effort and Inspection: Negative for respiratory distress or retractions Auscultation: Negative for rales, rhonchi or wheezes Cardio regular rhythm, S1 normal heart sound, S2 normal heart sound and no murmurs Rate: Negative for bradycardia or tachycardic Rhythm: Negative for abnormal rhythm GI non-tender, non-distended and no masses Inspecti (more content not included)... Normal [facility] Laboratory - Chemistry and C hemistry - challengeOrdered By: Dale Sesay on 01-05-2024 CO2 [Moles/Vol] 23.0 mmol/L 21.0-32.0 [facility] Urea nitrogen/Creatinine [Mass ratio] 11.0 mg/mg 10-20 [facility] No Panel InformationOrdered By: Dale Sesay on 01-05-2024 Estimated Creatinine Clearance Calc 163.23 ml/min [facility] Estimated GFR (MDRD) Amer 151 mL/min >60 [facility] Comment on above: GFR Calc Estimated GFR (MDRD) Non-Af Amer 125 mL/min >60 [facility] Comment on above: Non- GFR Calc Serum or plasma calcium maribell urement (mass/volume)Ordered By: Dale Sesay on 01-05-2024 Calcium [Mass/Vol] 9.3 mg/dL 8.5-10.1 [facility] Serum or plasma creatinine m easurement (mass/volume)Ordered By: Dale Sesay on 01-05-2024 Creatinine [Mass/Vol] 0.64 mg/dL 0.55-1.02 [facility] Comment on above: The validity of the calculated GFR & GFRAA in patients over 70 years has not been determined. Clinical correlation is essential. Serum or plasma urea nitroge n measurement (mass/volume)Ordered By: Dale Sesay on 01-05-2024 Urea nitrogen [Mass/Vol] 7 mg/dL 7-18 [facility] Thin prep Papanicolaou smear with manual screeningOrdered By: Dale Sesay on 01-05-2024 Thin prep Papanicolaou smear with manual screening 5 5-15 [facility] B-HCG SerPl-aCncon 4 HCG.beta subunit Qn 8034.0 m[IU]/mL High <5.0 [facility] Comment on above: Order Comment: Speci men Type: BLOOD SPECIMENOrdering Facility: [facility] Address: [address] [place] [address] Result Comment: FRANCIE TITATIVE HCG NORMAL RANGES Weeks of Gestation (Weeks Since LMP) 3 Weeks (5.8-71.2 mIU/mL) 4 Weeks (9.5-750 mIU/mL) 5 Weeks (217-7138 mIU/mL) 6 Weeks (158-04637 mIU/mL) 7 Weeks (3697-271854 mIU/mL) 8 Weeks (98195-123752 mIU/mL) 9 Weeks (33814-057895 mIU/mL) 10 Weeks (10539-825574 mIU/mL) 12 Weeks (86958-014028 mIU/mL) Referenced to 4th IS of [facility] Performed By: #### 2 1198-7 ####[facility] LABCLIA [id number] [facility] [id number] [place] [address] OF [facility] Jenny 2024 NITZAN Telephone (OBGYWM) LUZMARIA HEARN ([id number]) 1 F Date Time Provider Department 01/02/24 NALLELY ROMERO During your visit today, we recorded the [...] done? NOB is 01/14. Reviewed bleeding precautions. SAFIA Thomas Rebecca L, MD 2024 4:08 PM Signed I am [...] today. Pt will then have front desk supervisor staff schedule her follow up ultrasound. Pt reports that she is having some slight cramping. Frances Ram LPN Allergies As of Date: 2024 (No Known Allergies) Date Reviewed: 01/01/2024 Reviewed by: Evie Montes APRN.TRIAGE REGISTERED NURSE - Fully Assessed Reason for Visit: Early OB Bleeding [Other] Primary Visit Diagnosis:Vaginal bleeding in , first trimester [O20.9] Order(s):HCG QUANTITATIVE [SQHCGQT] Order #: [id number] FUTURE FEMALE PELVIS TRANSVAG [2369021] Order #: [id number] FUTURE Prescriptions as of 2024 - PNV [...] Status:Closed by FRANCES RAM on 01/02/24 Normal [facility] HCG QUANTITATIVEon HCG.beta subunit Qn 8034.0 m[IU]/mL High <5.0 mIU/mL [facility] CNOVon 01-01-2024 CNOV Office Visit (OBGYWM ) LUZMARIA HEARN ([id number]) 1 F Date Time Provider Department 01/01/24 1:15 PM EVIE MONTES During your visit today, we recorded the following information about you: Blood pressure Weight Last Period 122/82 108 kg 10/18/23 Evie Montes APRN.TRIAGE REGISTERED NURSE 01/01/2024 1:44 PM Signed Luzmariajayden Hearn is a 18 year old female [...] L1 SAB0 IAB0 Ectopic0 Multiple0 Live Births1 Urology Physician History LMP: 10/27/2021, Having periods Age at Menarche: Age at First : Age at Menopause: Urology Physician History Comments: Sexual Activity: No sexual activity [...] hours without food or water Evie Montes APRN.TRIAGE REGISTERED NURSE Medical Decision Making: Problems: Low: Acute, uncomplicated illness or injury Risk: Low: Low risk from testing/treatment Moderate: Drug management Medical Decision Making Level: 3 - Low Evie Montes APRN.TRIAGE REGISTERED NURSE 01/01/2024 1:32 PM Signed MORNING SICKNESS IN by Itzel Chin M.D. for [facility] As you may already know, morning sickness can often be more appropriately called evening sickness or kaspe-dguyfh-ai-the-day sickness. While there are the marisela few, [...] a pregna (more content not included)... Normal [facility] B-HCG SerPl-aCncon 4 HCG.beta subunit Qn 2007.0 m[IU]/mL High <5.0 [facility] Comment on above: Order Comment: Speci men Type: BLOOD SPECIMENOrdering Facility: [facility] Address: [address] [place] [address] Result Comment: FRANCIE TITATIVE HCG NORMAL RANGES Weeks of Gestation (Weeks Since LMP) 3 Weeks (5.8-71.2 mIU/mL) 4 Weeks (9.5-750 mIU/mL) 5 Weeks (217-7138 mIU/mL) 6 Weeks (158-35346 mIU/mL) 7 Weeks (3697-159923 mIU/mL) 8 Weeks (82087-857145 mIU/mL) 9 Weeks (04750-785863 mIU/mL) 10 Weeks (66263-459720 mIU/mL) 12 Weeks (92278-245522 mIU/mL) Referenced to 4th IS of [facility] Performed By: #### 2 1198-7 ####[facility] LABSUDHA [id number] [place] [address] [place] Jenny 12-29-2023 CNPN Telephone (OBGYWM) LUZMARIA HEARN ([id number]) 1 F Date Time Provider Department 12/29/23 DANAE ASHRAF OBGYWNeno During your visit today, we recorded the [...] it was positive so she went to [facility] ER. She is not having [...] Patient called. Reviewed her Hcg quants on Mychart. She continues to have N/V. Reviewed recommendations sent in previous [employer] message. Again, advised to go to ER if she is unable to keep any food/fluids down in 24 hours. Scheduled her for a New OB on 01/14. hCG Quantitative, Blood Date Value 12/29/2023 2,007.0 mIU/mL 12/28 hcg quant was 1460 Allergies As of Date: 12/29/2023 (No Known Allergies) Date Reviewed: 11/16/2021 Reviewed by: Mary Araiza (Revival Clerk) - Fully Assessed Reason for Visit: ER F/U [41] Primary Visit Diagnosis:Early stage of [Z34.90] Order(s):HCG QUANTITATIVE [SQHCGQT] Order #: [id number] FUTURE Prescriptions as of 2024 - PNV [...] Status:Closed by VALENTINA FALCON on 01/02/24 Normal [facility] HCG QUANTITATIVEon HCG.beta subunit Qn 2007.0 m[IU]/mL High <5.0 mIU/mL [facility] Emergency Department Summary on 12-28-2023 Emergency Department Summary [facility] Medical Records Department [address] [place] [address] Emergency Department Summary 12/28/23 MR#: [id number] Acct: [id number] Name: LUZMARIA HEARN Rep #: [id number] : 2005 18 From: Lukas Peña MD PCP: Dr. Dusty Galeano MD Status:REG ER Location: ED HPI HPI - Female History of Present Illness Chief Complaint: Vag Bleeding Narrative Narrative: Patient presenting today due to concerns for vaginal spotting that occurred 2 days ago. She reports that she is 9 days late on her menstrual period. Today, she took 2 at home test that came back positive. She reports that she has had intermittent cramping lower abdominal pain today. She does have intermittent nausea. She is G2, P1. She denies any fevers or chills. PFSH PFSH Home Medications NK 12/28/23 [History Last Taken Unknown] Allergy/AdvReac Type Severity Reaction Status Date / Time No Known Allergies Allergy Verified 12/28/23 20:53 Surgical History History of cholecystectomy Social History Smoking Status: Never smoker ROS ROS ED Constitutional Constitutional ED: Denies chills or fever(s) Cardiovascular Cardiovascular: Denies chest pain Respiratory/Chest Respiratory/Chest: Denies cough or dyspnea Gastrointestinal Gastrointestinal: Reports abdominal pain and nausea; Denies vomiting Genitourinary Genitourinary ED: Denies dysuria, hematuria or urinary urgency Musculoskeletal Musculoskeletal: Denies arthralgias or myalgias Integumentary Denies rash Neurologic Neurologic: Denies weakness EXAM Physical Exam Const Vital Signs: 12/28/23 20:50 Temperature 97.6 F L Temperature Source Temporal Pulse Rate 86 Respiratory Rate 18 Blood Pressure 155/92 H Blood Pressure Mean 113 Pulse Ox 97 Oxygen Delivery Method Room Air Positive well nourished, well developed and no apparent distress General Appearance ED: well developed HEENT Reports normocephalic and head/scalp atraumatic Mouth ED: Yes moist mucous membranes normal Eyes PERRL and EOMs intact bilaterally Neck full ROM and supple Chest Wall inspection of chest normal Resp normal respiratory effort and clear to auscultation bilaterally Cardio regular rate and regular rhythm GI soft to palpation, non-distended and no masses GI Narrative: Diffuse tenderness across patient's lower abdomen/pelvis, no rigidity, guarding, or peritoneal signs. Back/Spine normal ROM and normal to inspection Extremity normal to inspection and full ROM Neuro oriented x3, CN's II-XII intact bilaterally, moves all extremities, no focal motor deficits and no sensory deficits noted Sensorium / Orientation: awake and alert Psych mental status grossly normal and thought process normal Skin no rashes or lesions noted and no wounds Physical Exam Const Vital Signs: 12/28/23 20:50 Temperature 97.6 F L Temperature Source Temporal Pulse Rate 86 Respiratory Rate 18 Blood Pressure 155/92 H Blood Pressure Mean 113 Pulse Ox 97 Oxygen Delivery Method Room Air [facility] Narrative Medical decision making narrative: Patient is nontoxic-appearing and in no acute distress, she is presenting due to lower abdominal/pelvic cramping that started today and vaginal spotting that started 2 days ago. She has not had any bleeding since. She did have 2 positive test today. She is . Labs will be obtained to assess serum hCG quant. She has a A+ blood type. Transvaginal ultrasound will be obtained to rule out miscarriage/ectopic . Lab Data Labs: Laboratory Results - last 24 hr 12/28/23 21:13 HCG, Quant 1460 H Radiography Diagnostic Testing: Clinical Impression(s) from Imaging Studies Obstetrics Ultrasound 12/28/23 21:01 IMPRESSION: Single intrauterine with normal yolk sac. pole not yet seen compatible with early gestational age. Recommend repeat ultrasound in one to 2 weeks. Right ovarian 5.5 cm simple physiologic cyst with preserved ovarian Doppler vascular flow. Recommend attention to right ovary on ultrasound follow-up recommended above. Normal left ovary. Small volume likely physiologic free fluid in the pelvis. Electronically Signed: Wayne Rowley MD at 22:31 EST , [facility] Narrative Medical decision making narrative: Patient is nontoxic-appearing and in no acute distress, she is presenting due to lower abdominal/pelvic cramping that started today and vaginal spotting that started 2 day (more content not included)... Normal [facility] Serum or plasma choriogonado tropin detectionOrdered By: Jen Pa on 12-28-2023 HCG ( test) Ql 1460 mIU/mL <4 [facility] Comment on above: hCG levels with Gest ational AgeGestational Age hCG mIU/mL (IU/L)0.2 - 1 week 5 - 501-2 weeks 50 - 5002-3 weeks 100 - 84169-2 weeks 500 - 146800-5 weeks 1000 - 816455-5 weeks 86690 - 100,0006-8 weeks 99576 - 200,0002-3 months 74048 - 100,000 Transvaginal w/Preg USon Transvaginal w/Preg US [facility] Services [address] [place] [address] Transvaginal w/Preg US MR#: [id number] Acct: [id number] Name: LUZMARIA HEARN Rep #: [id number] : 2005 F 18 From: Wayne Rowley MD PCP: Dr. Dusty Galeano MD Status: REG ER Study: Transvaginal w/Preg US Date of Exam: 12/28/23 Exam# [id number] Ordering Dr: Jen Pa [id number] INDICATION: pelvic pain -- can you put in for doppler given hx of cyst EXAMINATION: Ultrasound US OB Transvaginal TECHNIQUE: Transvaginal pelvic ultrasound was performed. Grayscale, spectral waveform, and color flow Doppler evaluation of the adnexa. COMPARISON: None. LMP: [11/18/2023 correlating with 5 weeks 5 days gestation estimated delivery date August 24, 2024 FINDINGS: UTERUS: Anteverted 9.8 x 5.4 x 4.6 cm with normal myometrium. Cervix long and closed. . RIGHT OVARY: 6.1 x 5.3 x 5.8 cm with unilocular 5.5 cm cyst. Preserved surrounding ovarian parenchymal Doppler vascular flow.. . LEFT OVARY: 1.5 x 4.5 x 2.7 cm. Normal small follicles and preserved Doppler vascular flow. FREE FLUID: Small volume anechoic free fluid in the cul-de-sac.. INTRAUTERINE GESTATIONAL SAC(s) (size/shape): Single gestational sac at the uterine fundus with normal shape.. YOLK SAC: Single normal 2 mm yolk sac POLE: Not seen ESTIMATED GESTATION AGE: Mean sac diameter 0.53 cm correlating with 5 weeks 2 days gestation and estimated delivery date August 27, 2024. HEART MOTION: NA PLACENTA: Not visualized due to age. SUBCHORIONIC HEMORRHAGE: None. AMNIOTIC FLUID: Qualitatively normal. US/Transvaginal w/Preg US IMPRESSION: Single intrauterine with normal yolk sac. pole not yet seen compatible with early gestational age. Recommend repeat ultrasound in one to 2 weeks. Right ovarian 5.5 cm simple physiologic cyst with preserved ovarian Doppler vascular flow. Recommend attention to right ovary on ultrasound follow-up recommended above. Normal left ovary. Small volume likely physiologic free fluid in the pelvis. Electronically Signed: Wayne Rowley MD at 22:31 EST , CC: Dr. 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 1460 mIU/mL High 1-3 [facility] Comment on above: Result Comment: hCG levels with Gestational Age Gestational Age hCG mIU/mL (IU/L) 0.2 - 1 week 5 - 50 1-2 weeks 50 - 500 2-3 weeks 100 - 5000 3-4 weeks 500 - 37833 4-5 weeks 1000 - 22203 5-6 weeks 74079 - 100,000 6-8 weeks 25464 - 200,000 2-3 months 08315 - 100,000 Performed By: #### L 700.8000 #### [facility] [address] [place], [address] Progress Noteon 11-09-2023 Training Director Authentication Interface Message Text Patient ID: Luzmaria [...] of right eye, unspecified acute conjunctivitis type Laura Dutta was seen today for eye pain. Diagnoses and associated orders for this visit: Pain of right eyelid - trimethoprim-polymyxin b (POLYTRIM) 21906-4.1 UNIT/ML-% ophthalmic solution; instill 1 Drop into [...] and my lid is swollen, but it isn't. She is accompanied by her significant other. [...] 111.5 kg, last menstrual period 10/18/2023. Normal [facility] LABORATORYOrdered By: Claudia Craig on 10-25-2022 Appearance [...] definite cause of disease. Laboratories within the [facility] and its territories are required to report all positive results to the appropriate public health authorities.Detection of analyte target(s) does not imply that the corresponding virus(es) are infectious or are the causative agents for clinical symptoms.There is a risk of false positive values resulting from cross-contamination by target organisms, their nucleic acids or amplified product, or from non-specific signals in the assay.[employer] SARS-CoV-2 Assay is a Real-Time reverse-transcriptase polymerase [...] Invalid Interpretation Code AO Auto Urine SS Absolute lymphocyte counton 07-19-2022 Lymphocytes Auto (Unsp spec) [#/Vol] 3.06 10*3/uL 0.83-4.51 [facility] Work Phone: Basophil percentageon 2021 Basophils/100 WBC (Bld) 0.7 % 0-1 [facility] Work Phone: Chloride [Moles/Vol] 105 mmol/L 98-107 [facility] Work Phone: Eosinophils/100 WBC (Bld) 2.1 % 0-5 [facility] Work Phone: Glucose [Mass/Vol] 101 mg/dL 74-106 [facility] Work Phone: Comment on above: Fasting Glucose resu lt from 100 to 125 mg/dL suggests IMPAIRED HOMEOSTASIS per A.D.A. criteria. Neutrophils (Bld) [#/Vol] 8.0 10*3/uL 2.0-7.7 [facility] Work Phone: Neutrophils/100 WBC (Bld) 61.0 % 47-70 [facility] Work Phone: [phone] Potassium [Moles/Vol] 3.4 mmol/L 3.5-5.1 [facility] Work Phone: [phone] Sodium [Moles/Vol] 139 mmol/L 136-145 [facility] Work Phone: WBC (Bld) [#/Vol] 13.1 10*3/uL 4.4-11.0 [facility] Work Phone: Blood erythrocytes count (nu mber/volume)on 07-19-2022 RBC (Bld) [#/Vol] 4.80 10*6/uL 4.2-5.4 [facility] Work Phone: [phone] Blood hemoglobin measurement (mass/volume)on 07-19-2022 Hemoglobin (Bld) [Mass/Vol] 13.9 g/dL 12.0-15.0 [facility] Work Phone: Blood lymphocytes/100 leukoc yteson 07-19-2022 Lymphocytes/100 WBC (Bld) 23.4 % 19-41 [facility] Work Phone: Blood monocytes/100 leukocyt eson 07-19-2022 Monocytes/100 WBC (Bld) 11.3 % 0-10 [facility] Work Phone: Blood platelet mean volumeon 07-19-2022 Platelet mean volume (Bld) [Entitic vol] 9.2 fL 6.2-12.0 [facility] Work Phone: Determination of erythrocyte mean corpuscular volume (MCV)on 07-19-2022 MCV (RBC) [Entitic vol] 86.5 fL 81-99 [facility] Work Phone: Hematocrit Auto (Bld) [Volum e fraction]on 07-19-2022 Hematocrit (Bld) [Volume fraction] 41.5 % 37-47 [facility] Work Phone: Laboratory - Chemistry and C hemistry - challengeon 07-19-2022 CO2 [Moles/Vol] 28.0 mmol/L 21.0-32.0 [facility] Work Phone: Urea nitrogen/Creatinine [Mass ratio] 20.0 mg/mg 10-20 [facility] Work Phone: Laboratory - Hematology and Cell countson 07-19-2022 Erythrocyte distribution width (RBC) [Entitic vol] 39.8 fL 35.1-43.9 [facility] Work Phone: Erythrocyte distribution width (RBC) [Ratio] 12.5 % 11.6-14.6 [facility] Work Phone: Immature granulocytes/100 WBC (Bld) 1.500 % 0.0-0.9 [facility] Work Phone: Comment on above: IG% - Immature Granu locytes (promyelocytes, myelocytes and metamyelocytes) > 1% indicates that a LEFT SHIFT is Present. MCH (RBC) [Entitic mass] 29.0 pg 27.0-32.0 [facility] Work Phone: Nucleated RBC/100 WBC (Bld) [Ratio] 0 % 0-5 [facility] Work Phone: MCHC Auto (RBC) [Mass/Vol]on 07-19-2022 MCHC (RBC) [Mass/Vol] 33.5 g/dL 32-36 [facility] Work Phone: No Panel Informationon 07-19 D-Dimer Quantitative (PE/DVT) 0.42 FEU/ug/m 0.27-0.49 [facility] Work Phone: Comment on above: NORMAL D-Dimer level (<0.50) indicates no DVT or PE. Estimated Creatinine Clearance Calc 135.09 ml/min [facility] Work Phone: Estimated GFR (MDRD) Amer 138 mL/min >60 [facility] Work Phone: Comment on above: GFR Calc Estimated GFR (MDRD) Non-Af Amer 114 mL/min >60 [facility] Work Phone: Comment on above: Non- GFR Calc Troponin I High Sensitivity 3 pg/mL 3.0-54.0 [facility] Work Phone: Comment on above: Please Note: New [place] t Units and Gender Specific Reference Ranges. For more information see Policy Stat Procedure [place] High Sensitivity Troponin (TNIH) and attachments. Platelets bldon 07-19-2022 Platelets (Bld) [#/Vol] 370 10*3/uL 150-450 [facility] Work Phone: Serum or plasma calcium maribell urement (mass/volume)on 07-19-2022 Calcium [Mass/Vol] 9.5 mg/dL 8.5-10.1 [facility] Work Phone: Serum or plasma creatinine m easurement (mass/volume)on 07-19-2022 Creatinine [Mass/Vol] 0.70 mg/dL 0.55-1.02 [facility] Work Phone: Comment on above: The validity of the calculated GFR & GFRAA in patients over 70 years has not been determined. Clinical correlation is essential. Serum or plasma urea nitroge n measurement (mass/volume)on 07-19-2022 Urea nitrogen [Mass/Vol] 14 mg/dL 7-18 [facility] Work Phone: Thin prep Papanicolaou smear with manual screeningon 07-19-2022 Thin prep Papanicolaou smear with manual screening 6 5-15 [facility] Work Phone: Basophil percentageon 2021 Basophil percentage 10-25 SEEN /hpf [facility] Work Phone: Bilirubin Test strip Ql (U)o n 03-04-2022 Bilirubin Ql (U) 1 mg/dL Negative [facility] Work Phone: Comment on above: COLOR OF URINE MAY A FFECT DIPSTICK RESULTS. Ketones Test strip Ql (U)on 03-04-2022 Ketones Ql (U) 5 mg/dl Negative [facility] Work Phone: Laboratory - Chemistry and C hemistry - challengeon 03-04-2022 HCG ( test) Ql (U) Negative [facility] Work Phone: Comment on above: Very dilute urine sp ecimens, as indicated by a low specificgravity, may not contain insurance follow up representative levels of hCG. If is still suspected, a first morning urinespecimen should be collected 48 hours later and tested. Mucus LM Ql (Urine sed)on Mucus Ql (Urine sed) 0 SEEN /hpf [facility] Work Phone: Nitrite Test strip Ql (U)on 03-04-2022 Nitrite Ql (U) Negative Negative [facility] Work Phone: Protein Test strip Ql (U)on 03-04-2022 Protein Ql (U) 30 mg/dl Negative [facility] Work Phone: Squamous epithelial cells de tection in urine sediment by light microscopyon 03-04-2022 Epithelial cells.squamous LM Ql (Urine sed) 25-50 SEEN /hpf [facility] Work Phone: Urine blood detectionon 02-05 RBC Ql (U) 250 /ul Negative [facility] Work Phone: RBC Ql (U) 5-10 SEEN /hpf [facility] Work Phone: Urine clarityon 03-04-2022 Clarity (U) Clear Clear [facility] Work Phone: Urine color determinationon 03-04-2022 Color (U) Yellow Yellow [facility] Work Phone: Urine glucose detectionon Glucose Ql (U) Normal mg/dl Normal [facility] Work Phone: Urine leukocyte esterase det ection by dipstickon 03-04-2022 Leukocyte esterase Test strip Ql (U) 500 /ul Negative [facility] Work Phone: Urine pHon 03-04-2022 pH (U) 6.0 [pH] [facility] Work Phone: Urine sediment bacteria coun t by microscopy (number/high power field)on 03-04-2022 Bacteria LM.HPF (Urine sed) [#/Area] 3 /[HPF] None Seen [facility] Work Phone: Urine specific gravity measu rementon 03-04-2022 Specific gravity (U) [Rel density] 1.020 [facility] Work Phone: Urobilinogen Auto test strip Ql (U)on 03-04-2022 Urobilinogen Ql (U) 1 mg/dl Normal [facility] Work Phone: CNOVon 03-14-2018 CNOV Office Visit (UCWSTR) LUZMARIA HEARN ([id number]) 03 FDate Time Provider Department03/14/18 11:00 AM GEMMA STALLINGS ([facility] During your visit today, we recorded the following information about you: Temperature Pulse Respiration Weight 97.7 degrees 78/minute 16/minute 94.3 kg Last Period 03/14/18Gemma Stallings ([facility]) 03/14/2018 11:30 AM SignedSubjectiveHPI Luzmaria Hearn is a 13 year old female who presents with welts on her legsand stomach and she saw the other Urgent [place] in [place], who gave herAugmentin and prednisone and told [...] expected course of illnessGemma Stallings APRN.CNPPraisler-Wood, Kathy ([facility]) 03/14/2018 11:15 AM SignedTake medications as prescribed. If not improving in 3-5 days, or you haveworsening symptoms, see your primary care provider for recheck.Referring Provider: SELF [200]Allergies As of Date: 03/14/2018(No Known Allergies)Date Reviewed: 03/14/2018Reviewed by: Gemma Stallings ([facility]) - Fully AssessedReason for Visit: Hives [...] twice daily for 7 days.Letter Lynn Stallings APRN.[facility] Urgent [address] [facility] [address]Adsn: [phone]/9/2018Ash jayden Qtrq074 [address] [address]Bx Whom it May Concern:This is to certify that Luzmaria Hearn was seen at our office for medical care.Luzmaria may return to school on 03/15/2018.If you have any questions please feel free to call.Sincerely:Gemma Stallings APRN.[facility]ounter Number: [id number] Status:Closed by GEMMA STALLINGS on 03/14/18 Normal [facility] PROGRESSon 03-14-2018 PROGRESS HNO ID: [id number]: Gemma Stallings ([facility])Service: (none)Author Type: Nurse PractitionerType: Progress NotesFiled: 03/14/2018 11:30 AMNote Text:SubjectiveHPI Luzmaria Hearn is a 13 year old female who presents with welts on herlegs and stomach and she saw the other Urgent Care in [place], who gaveher Augmentin and prednisone and told [...] analgesia.- Discussed expected course of illnessGemma Stallings APRN.TRIAGE REGISTERED NURSE Normal [facility] Influenza virus A and B and SARS-CoV-2 (COVID-19) Ag panel - Upper respiratory specim SARS-CoV-2 (COVID-19) RNA LILIA+probe Ql (Resp) [facility] Work Phone: No Panel Information SARS-CoV-2 & FLU Antigen (Rapid) [facility] Work Phone: Vital Signs Date Time Vital Sign Value Performing Clinician Facility 10-29-2024 10:19-0500 Body mass index (BMI) [Ratio] 37.24 kg/m2 Oneida Mattson APRN.SHAMIKAM Work Phone: [facility] 10-29-2024 10:19-0500 Body weight 103.87 kg Oneida Plotts DENTAL SCHEDULING COORDINATOR.CNM Work Phone: [facility] 10-29-2024 10:19-0500 Diastolic blood pressure 64 mm[Hg] Oneida Plotts DENTAL SCHEDULING COORDINATOR.CNM Work Phone: [facility] 10-29-2024 10:19-0500 Systolic blood pressure 114 mm[Hg] Oneida Plotts DENTAL SCHEDULING COORDINATOR.CNM Work Phone: [facility] 10-10-2024 10:22-0500 Body mass index (BMI) [Ratio] 36.1 kg/m2 Oneida Plotts DENTAL SCHEDULING COORDINATOR.CNM Work Phone: [facility] 10-10-2024 10:22-0500 Body weight 100.7 kg Oneida Plotts DENTAL SCHEDULING COORDINATOR.CNM Work Phone: [facility] 10-10-2024 10:22-0500 Diastolic blood pressure 68 mm[Hg] Oneida Plotts DENTAL SCHEDULING COORDINATOR.CNM Work Phone: [facility] 10-10-2024 10:22-0500 Systolic blood pressure 118 mm[Hg] Oneida Plotts DENTAL SCHEDULING COORDINATOR.CNM Work Phone: [facility] 09-12-2024 10:35-0500 Body mass index (BMI) [Ratio] 33.67 kg/m2 Oneida Plotts DENTAL SCHEDULING COORDINATOR.CNM Work Phone: [facility] 09-12-2024 10:35-0500 Body weight 93.89 kg Oneida Plotts DENTAL SCHEDULING COORDINATOR.CNM Work Phone: [facility] 09-12-2024 10:35-0500 Diastolic blood pressure 72 mm[Hg] Oneida Plotts DENTAL SCHEDULING COORDINATOR.CNM Work Phone: [facility] 09-12-2024 10:35-0500 Systolic blood pressure 110 mm[Hg] Oneida Plotts DENTAL SCHEDULING COORDINATOR.CNM Work Phone: [facility] 08-28-2024 10:52-0400 Body mass index (BMI) [Ratio] 37.24 kg/m2 Valentina Yo MD Work Phone: [facility] 08-28-2024 10:52-0400 Body weight 103.87 kg Valentina Yo MD Work Phone: [facility] 08-28-2024 10:52-0400 Diastolic blood pressure 72 mm[Hg] Valentina Yo MD Work Phone: [facility] 08-28-2024 10:52-0400 Systolic blood pressure 119 mm[Hg] Valentina Yo MD Work Phone: [facility] 08-26-2024 14:29-0400 Body mass index (BMI) [Ratio] 37.41 kg/m2 Jackie Candelaria DENTAL SCHEDULING COORDINATOR.CNM Work Phone: [facility] 08-26-2024 14:29-0400 Body weight 104.33 kg Jackie Candelaria DENTAL SCHEDULING COORDINATOR.CNM Work Phone: [facility] 08-26-2024 14:29-0400 Diastolic blood pressure 87 mm[Hg] Jackie Candelaria DENTAL SCHEDULING COORDINATOR.CNM Work Phone: [facility] 08-26-2024 14:29-0400 Systolic blood pressure 137 mm[Hg] Jackie Candelaria DENTAL SCHEDULING COORDINATOR.CNM Work Phone: [facility] 08-22-2024 15:00-0400 Body mass index (BMI) [Ratio] 37.57 kg/m2 Nallely Romero MD Work Phone: [facility] 08-22-2024 15:00-0400 Body weight 104.78 kg Nallely Romero MD Work Phone: [facility] 08-22-2024 15:00-0400 Diastolic blood pressure 64 mm[Hg] Nallely Romero MD Work Phone: [facility] 08-22-2024 15:00-0400 Systolic blood pressure 114 mm[Hg] Nallely Romero MD Work Phone: [facility] 08-16-2024 10:32-0400 Body mass index (BMI) [Ratio] 37.08 kg/m2 Jackie Candelaria DENTAL SCHEDULING COORDINATOR.CNM Work Phone: [facility] 08-16-2024 10:32-0400 Body weight 103.42 kg Jackie Candelaria DENTAL SCHEDULING COORDINATOR.CNM Work Phone: [facility] 08-16-2024 10:32-0400 Diastolic blood pressure 81 mm[Hg] Jackie Candelaria DENTAL SCHEDULING COORDINATOR.CNM Work Phone: [facility] 08-16-2024 10:32-0400 Systolic blood pressure 127 mm[Hg] Jackie Candelaria DENTAL SCHEDULING COORDINATOR.CNM Work Phone: [facility] 08-09-2024 09:51-0400 Body mass index (BMI) [Ratio] 37.41 kg/m2 Valentina Yo MD Work Phone: [facility] 08-09-2024 09:51-0400 Body weight 104.33 kg Valentina Yo MD Work Phone: [facility] 08-09-2024 09:51-0400 Diastolic blood pressure 74 mm[Hg] Valentina Yo MD Work Phone: [facility] 08-09-2024 09:51-0400 Systolic blood pressure 117 mm[Hg] Valentina Yo MD Work Phone: [facility] 08-02-2024 10:20-0400 Body mass index (BMI) [Ratio] 36.59 kg/m2 Oneida Mattson APRN.CNM Work Phone: [facility] 08-02-2024 10:20-0400 Body weight 102.06 kg Oneida Mattson DENTAL SCHEDULING COORDINATOR.CNM Work Phone: [facility] 08-02-2024 10:20-0400 Diastolic blood pressure 73 mm[Hg] Oneida Mattson DENTAL SCHEDULING COORDINATOR.CNM Work Phone: [facility] 08-02-2024 10:20-0400 Systolic blood pressure 114 mm[Hg] Oneida Mattson DENTAL SCHEDULING COORDINATOR.CNM Work Phone: [facility] 07-29-2024 11:52-0400 Diastolic blood pressure 68 mm[Hg] Ob [facility] 07-29-2024 11:52-0400 Heart rate 85 /min Ob [facility] 07-29-2024 11:52-0400 Systolic blood pressure 116 mm[Hg] Ob [facility] 07-26-2024 09:52-0400 Body mass index (BMI) [Ratio] 36.92 kg/m2 Oneida Plotts DENTAL SCHEDULING COORDINATOR.CNM Work Phone: [facility] 07-26-2024 09:52-0400 Body weight 102.97 kg Oneida Solists DENTAL SCHEDULING COORDINATOR.CNM Work Phone: [facility] 07-26-2024 09:52-0400 Diastolic blood pressure 60 mm[Hg] Oneida Plotts DENTAL SCHEDULING COORDINATOR.CNM Work Phone: [facility] 07-26-2024 09:52-0400 Systolic blood pressure 110 mm[Hg] Oneida Solists DENTAL SCHEDULING COORDINATOR.CNM Work Phone: [facility] 07-16-2024 11:17-0400 Body mass index (BMI) [Ratio] 36.76 kg/m2 Valentina Yo MD Work Phone: [facility] 07-16-2024 11:17-0400 Body weight 102.51 kg Valentina Yo MD Work Phone: [facility] 07-16-2024 11:17-0400 Diastolic blood pressure 68 mm[Hg] Valentina Yo MD Work Phone: [facility] 07-16-2024 11:17-0400 Systolic blood pressure 122 mm[Hg] Valentina Yo MD Work Phone: [facility] 06-28-2024 10:11-0400 Body mass index (BMI) [Ratio] 37.41 kg/m2 Valentina Yo MD Work Phone: [facility] 06-28-2024 10:11-0400 Body weight 104.33 kg Valentina Yo MD Work Phone: [facility] 06-28-2024 10:11-0400 Diastolic blood pressure 72 mm[Hg] Valentina Yo MD Work Phone: [facility] 06-28-2024 10:11-0400 Systolic blood pressure 124 mm[Hg] Valentina Yo MD Work Phone: [facility] 06-14-2024 09:23-0400 Body mass index (BMI) [Ratio] 37.99 kg/m2 Valentina Yo MD Work Phone: [facility] 06-14-2024 09:23-0400 Body weight 105.96 kg Valentina Yo MD Work Phone: [facility] 06-14-2024 09:23-0400 Diastolic blood pressure 76 mm[Hg] Valentina oY MD Work Phone: [facility] 06-14-2024 09:23-0400 Systolic blood pressure 120 mm[Hg] Valentina Yo MD Work Phone: [facility] 05-31-2024 09:01-0400 Body mass index (BMI) [Ratio] 36.92 kg/m2 Evieemma Montes DENTAL SCHEDULING COORDINATOR.TRIAGE REGISTERED NURSE Work Phone: [facility] 05-31-2024 09:01-0400 Body weight 102.97 kg Evie Hagary DENTAL SCHEDULING COORDINATOR.TRIAGE REGISTERED NURSE Work Phone: [facility] 05-31-2024 09:01-0400 Diastolic blood pressure 74 mm[Hg] Evie Haury DENTAL SCHEDULING COORDINATOR.TRIAGE REGISTERED NURSE Work Phone: [facility] 05-31-2024 09:01-0400 Heart rate 110 /min Evie Haury DENTAL SCHEDULING COORDINATOR.TRIAGE REGISTERED NURSE Work Phone: [facility] 05-31-2024 09:01-0400 Respiratory rate 14 /min Evie Haury DENTAL SCHEDULING COORDINATOR.TRIAGE REGISTERED NURSE Work Phone: [facility] 05-31-2024 09:01-0400 SaO2% (BldA) [Mass fraction] 98 % Evie Hagary DENTAL SCHEDULING COORDINATOR.TRIAGE REGISTERED NURSE Work Phone: [facility] 05-31-2024 09:01-0400 Systolic blood pressure 118 mm[Hg] Evie Montes MICHELLE.TRIAGE REGISTERED NURSE Work Phone: [facility] 05-03-2024 09:45-0400 Body mass index (BMI) [Ratio] 37.02 kg/m2 Jackie Candelaria APRN.CNM Work Phone: [facility] 05-03-2024 09:45-0400 Body weight 103.24 kg Jackie Candelaria APRN.CNM Work Phone: [facility] 05-03-2024 09:45-0400 Diastolic blood pressure 68 mm[Hg] Jackie Candelaria APRN.CNM Work Phone: [facility] 05-03-2024 09:45-0400 Systolic blood pressure 110 mm[Hg] Jackie Candelaria APRN.CNM Work Phone: [facility] 04-16-2024 18:35-0400 Body mass index (BMI) [Ratio] 36.93 kg/m2 Krislyn Aberegg PA Work Phone: [facility] 04-16-2024 18:35-0400 Body temperature 99.5 [degF] Krislyn Aberegg PA Work Phone: [facility] 04-16-2024 18:35-0400 Body weight 103 kg Krislyn Aberegg PA Work Phone: [facility] 04-16-2024 18:35-0400 Diastolic blood pressure 82 mm[Hg] Krislyn Aberegg PA Work Phone: [facility] 04-16-2024 18:35-0400 Heart rate 98 /min Krislyn Aberegg PA Work Phone: [facility] 04-16-2024 18:35-0400 Respiratory rate 20 /min Krislyn Aberegg PA Work Phone: [facility] 04-16-2024 18:35-0400 SaO2% (BldA) [Mass fraction] 96 % Krislyn Aberegg PA Work Phone: [facility] 04-16-2024 18:35-0400 Systolic blood pressure 132 mm[Hg] Sanaz SORIANO Work Phone: [facility] 04-11-2024 15:05-0400 Body mass index (BMI) [Ratio] 36.84 kg/m2 i [facility] 04-11-2024 15:05-0400 Body weight 102.74 kg [facility] 03-29-2024 09:35-0400 Body mass index (BMI) [Ratio] 37.41 kg/m2 Jocelynn Araiza MD Work Phone: [facility] 03-29-2024 09:35-0400 Body weight 104.33 kg Jocelynn Araiza MD Work Phone: [facility] 03-29-2024 09:35-0400 Diastolic blood pressure 62 mm[Hg] Jocelynn Araiza MD Work Phone: [facility] 03-29-2024 09:35-0400 Systolic blood pressure 104 mm[Hg] Jocelynn Araiza MD Work Phone: [facility] 03-19-2024 14:17-0400 Body height 160 cm ADILIA OHARA DO [facility] 03-19-2024 14:17-0400 Body temperature 97.88 [degF] ADILIA OHARA DO [facility] 03-19-2024 14:17-0400 Body weight 109.1 kg ADILIA OHARA DO [facility] 03-19-2024 14:17-0400 Diastolic Blood Pressure Non-Invasive 80 mm[Hg] ADILIA OHARA DO [facility] 03-19-2024 14:17-0400 Heart rate 85 /min ADILIA OHARA DO [facility] 03-19-2024 14:17-0400 Respiratory rate 20 /min ADILIA OHARA DO [facility] 03-19-2024 14:17-0400 Systolic Blood Pressure Non-Invasive 120 mm[Hg] ADILIA OHARA DO [facility] 02-15-2024 09:45-0400 Body weight 106.14 kg Valentina Yo MD Work Phone: [facility] 02-15-2024 09:45-0400 Diastolic blood pressure 66 mm[Hg] Valentina Yo MD Work Phone: [facility] 02-15-2024 09:45-0400 Systolic blood pressure 112 mm[Hg] Valentina Yo MD Work Phone: [facility] 01-25-2024 10:55-0400 Body weight 106.05 kg Oneida Plotts DENTAL SCHEDULING COORDINATOR.CNM Work Phone: [facility] 01-25-2024 10:55-0400 Diastolic blood pressure 70 mm[Hg] Oneida Plotts DENTAL SCHEDULING COORDINATOR.CNM Work Phone: [facility] 01-25-2024 10:55-0400 Systolic blood pressure 114 mm[Hg] Oneida Plotts DENTAL SCHEDULING COORDINATOR.CNM Work Phone: [facility] 01-18-2024 10:10-0400 Body weight 107.05 kg Oneida Plotts DENTAL SCHEDULING COORDINATOR.CNM Work Phone: [facility] 01-18-2024 10:10-0400 Diastolic blood pressure 70 mm[Hg] Oneida Plotts DENTAL SCHEDULING COORDINATOR.CNM Work Phone: [facility] 01-18-2024 10:10-0400 Systolic blood pressure 116 mm[Hg] Oneida Plotts DENTAL SCHEDULING COORDINATOR.CNM Work Phone: [facility] 01-16-2024 22:13-0400 Diastolic Blood Pressure Non-Invasive 88 mm[Hg] TARIQ YODER MD [facility] 01-16-2024 22:13-0400 Heart rate 85 /min TARIQ YODER MD [facility] 01-16-2024 22:13-0400 Respiratory rate 16 /min TARIQ YODER MD [facility] 01-16-2024 22:13-0400 Systolic Blood Pressure Non-Invasive 133 mm[Hg] TARIQ YODER MD [facility] 01-16-2024 20:19-0400 Body temperature 98.96 [degF] TARIQ YODER MD [facility] 01-16-2024 20:19-0400 Body weight 108.5 kg TARIQ YODER MD [facility] 01-16-2024 20:19-0400 Diastolic Blood Pressure Non-Invasive 89 mm[Hg] TARIQ YODER MD [facility] 01-16-2024 20:19-0400 Heart rate 94 /min TARIQ YODER MD [facility] 01-16-2024 20:19-0400 Respiratory rate 18 /min TARIQ YODER MD [facility] 01-16-2024 20:19-0400 Systolic Blood Pressure Non-Invasive 134 mm[Hg] TARIQ YODER MD [facility] 01-15-2024 10:16-0400 Body height 167 cm Evie Montes APRN.TRIAGE REGISTERED NURSE Work Phone: [facility] 01-15-2024 10:16-0400 Body weight 108.5 kg Evie Montes APRN.TRIAGE REGISTERED NURSE Work Phone: [facility] 01-15-2024 10:16-0400 Diastolic blood pressure 66 mm[Hg] Evie Montes APRN.CNP Work Phone: [facility] 01-15-2024 10:16-0400 Systolic blood pressure 124 mm[Hg] Evie Montes APRN.TRIAGE REGISTERED NURSE Work Phone: [facility] 01-08-2024 13:45-0500 Body temperature 96.9 [degF] [facility] 01-08-2024 13:45-0500 Diastolic blood pressure 73 mm[Hg] [facility] 01-08-2024 13:45-0500 Heart rate 95 /min [facility] 01-08-2024 13:45-0500 Respiratory rate 14 /min [facility] 01-08-2024 13:45-0500 SaO2% (BldA) [Mass fraction] 94 % [facility] 01-08-2024 13:45-0500 Systolic blood pressure 136 mm[Hg] [facility] 01-08-2024 08:54-0500 Body height 157.48 cm [facility] 01-08-2024 08:54-0500 Body mass index (BMI) [Ratio] 43 kg/m2 [facility] 01-08-2024 08:54-0500 Body weight 106.8 kg [facility] 01-05-2024 12:23-0500 Body temperature 98.6 [degF] [facility] 01-05-2024 12:23-0500 Diastolic blood pressure 74 mm[Hg] [facility] 01-05-2024 12:23-0500 Heart rate 78 /min [facility] 01-05-2024 12:23-0500 Respiratory rate 169 /min [facility] 01-05-2024 12:23-0500 SaO2% (BldA) [Mass fraction] 98 % [facility] 01-05-2024 12:23-0500 Systolic blood pressure 106 mm[Hg] [facility] 01-05-2024 08:39-0500 Body height 160.02 cm [facility] 01-05-2024 08:39-0500 Body mass index (BMI) [Ratio] 41.9 kg/m2 [facility] 01-05-2024 08:39-0500 Body weight 107.3 kg [facility] 12-28-2023 22:50-0500 Body temperature 98 [degF] [facility] 12-28-2023 22:50-0500 Diastolic blood pressure 74 mm[Hg] [facility] 12-28-2023 22:50-0500 Heart rate 81 /min [facility] 12-28-2023 22:50-0500 Respiratory rate 16 /min [facility] 12-28-2023 22:50-0500 SaO2% (BldA) [Mass fraction] 99 % [facility] 12-28-2023 22:50-0500 Systolic blood pressure 138 mm[Hg] [facility] 12-28-2023 20:50-0500 Body height 160.02 cm [facility] 12-28-2023 20:50-0500 Body mass index (BMI) [Ratio] 43.4 kg/m2 [facility] 12-28-2023 20:50-0500 Body weight 111.13 kg [facility] 10-25-2022 21:01-0500 Diastolic Blood Pressure Non-Invasive 75 1 CLARE LIZ [facility] 10-25-2022 21:01-0500 Heart rate 85 /min [facility] 10-25-2022 21:01-0500 Respiratory rate 18 /min [facility] 10-25-2022 21:01-0500 Systolic Blood Pressure Non-Invasive 127 1 [facility] 10-25-2022 18:10-0500 Diastolic Blood Pressure Non-Invasive 68 1 [facility] 10-25-2022 18:10-0500 Heart rate 95 /min [facility] 10-25-2022 18:10-0500 Respiratory rate 11 /min [facility] 10-25-2022 18:10-0500 Systolic Blood Pressure Non-Invasive 140 1 [facility] 10-25-2022 16:12-0500 Diastolic Blood Pressure Non-Invasive 75 1 [facility] 10-25-2022 16:12-0500 Heart rate 79 /min [facility] 10-25-2022 16:12-0500 Respiratory rate 12 /min [facility] 10-25-2022 16:12-0500 Systolic Blood Pressure Non-Invasive 127 1 [facility] 10-25-2022 14:48-0500 Blood Pressure Location CLARE LI[facility] 10-25-2022 14:48-0500 Blood Pressure Method [facility] 10-25-2022 14:48-0500 Body temperature 96.8 [degF] [facility] 10-19-2022 22:39-0500 Diastolic blood pressure 71 mm[Hg] [facility] Work Phone: 10-19-2022 22:39-0500 Heart rate 65 /min [facility] Work Phone: 10-19-2022 22:39-0500 Respiratory rate 18 /min [facility] Work Phone: 10-19-2022 22:39-0500 SaO2% (BldA) [Mass fraction] 97 % [facility] Work Phone: 10-19-2022 22:39-0500 Systolic blood pressure 135 mm[Hg] [facility] Work Phone: 10-19-2022 20:03-0500 Body height 160.02 cm [facility] Work Phone: 10-19-2022 20:03-0500 Body mass index (BMI) [Percentile] Per age and sex 98.6 % [facility] Work Phone: 10-19-2022 20:03-0500 Body mass index (BMI) [Ratio] 41.6 kg/m2 [facility] Work Phone: 10-19-2022 20:03-0500 Body temperature 97.6 [degF] [facility] Work Phone: 10-19-2022 20:03-0500 Body weight 106.59 kg [facility] Work Phone: 07-20-2022 01:22-0400 Diastolic blood pressure 78 mm[Hg] [facility] Work Phone: 07-20-2022 01:22-0400 Heart rate 70 /min [facility] Work Phone: 07-20-2022 01:22-0400 Respiratory rate 17 /min [facility] Work Phone: 07-20-2022 01:22-0400 SaO2% (BldA) [Mass fraction] 98 % [facility] Work Phone: 07-20-2022 01:22-0400 Systolic blood pressure 137 mm[Hg] [facility] Work Phone: 07-19-2022 22:58-0400 Body height 175.26 cm [facility] Work Phone: 07-19-2022 22:58-0400 Body mass index (BMI) [Percentile] Per age and sex 98.3 % [facility] Work Phone: 07-19-2022 22:58-0400 Body mass index (BMI) [Ratio] 39.1 kg/m2 [facility] Work Phone: 07-19-2022 22:58-0400 Body temperature 97.3 [degF] [facility] Work Phone: 07-19-2022 22:58-0400 Body weight 120.2 kg [facility] Work Phone: 03-04-2022 06:34-0400 Heart rate 78 /min [facility] Work Phone: 03-04-2022 06:34-0400 Respiratory rate 16 /min [facility] Work Phone: 03-04-2022 06:34-0400 SaO2% (BldA) [Mass fraction] 97 % [facility] Work Phone: 03-04-2022 04:53-0400 Body height 160.02 cm [facility] Work Phone: 03-04-2022 04:53-0400 Body mass index (BMI) [Ratio] 46.6 kg/m2 [facility] Work Phone: 03-04-2022 04:53-0400 Body temperature 96.5 [degF] [facility] Work Phone: 03-04-2022 04:53-0400 Body weight 119.4 kg [facility] Work Phone: 03-04-2022 04:53-0400 Diastolic blood pressure 85 mm[Hg] [facility] Work Phone: 03-04-2022 04:53-0400 Systolic blood pressure 144 mm[Hg] [facility] Work Phone: Encounters Encounter Date Encounter Type Care Provider Facility Start: 10-29-2024 End: 10-29-2024 ambulatory DUSTY GALEANO Facility:[facility] Start: 10-29-2024 End: 10-29-2024 Patient encounter procedure Oneida Solisdaphnie LINARESN.CNM Work Phone: OB/Gynecology Comment on above: Nexplanon insertion (Primary Dx); Insertion of implantable subdermal contraceptive Start: 10-10-2024 End: 10-10-2024 ambulatory [facility] Facility:[facility] Start: 10-10-2024 End: 10-10-2024 Patient encounter procedure Oneida Mattson DENTAL SCHEDULING COORDINATOR.CNM Work Phone: OB/Gynecology Comment on above: care and examination (Primary Dx); Encounter for routine examination for contraception Start: 10-10-2024 End: 10-10-2024 Patient encounter status Oneida Mattson DENTAL SCHEDULING COORDINATOR.CNM Work Phone: [facility] Work Phone: Start: 09-12-2024 End: 09-12-2024 ambulatory [facility] Facility:[facility] Start: 09-12-2024 End: 09-12-2024 Patient encounter procedure Oneida Solisdaphnie DENTAL SCHEDULING COORDINATOR.CNM Work Phone: OB/Gynecology Comment on above: Routine f ollow-up (Primary Dx); Lactating mother Start: 08-29-2024 End: 08-30-2024 ambulatory Oneida Mattson DENTAL SCHEDULING COORDINATOR.CNM Work Phone: OB/Gynecology Comment on above: Ob Delivery Note Start: 08-29-2024 End: 08-30-2024 Evaluation and management of inpatient Oneida Mattson Facility:[facility] Start: 08-28-2024 End: 08-28-2024 Office outpatient visit 15 minutes Valentina Yo MD Work Phone: OB/Gynecology Comment on above: 40 weeks gestation o f (Primary Dx); Obesity in , antepartum; Encounter for supervision of high risk in third trimester, antepartum Start: 08-28-2024 End: 08-28-2024 ambulatory [facility] Facility:[facility] Start: 08-26-2024 End: 08-26-2024 Patient encounter procedure Jackie Candelaria APRN.CNM Work Phone: OB/Gynecology Comment on above: Heartburn during pre gnancy in third trimester (Primary Dx); Family history of diabetes mellitus; History of macrosomia in in prior , currently ; Obesity in , antepartum; Encounter for supervision of high risk in third trimester, antepartum; 40 weeks gestation of ; Positive GBS test Start: 08-26-2024 End: 08-26-2024 [facility] Facility:[facility] Start: 08-26-2024 End: 08-26-2024 Telephone encounter Valentina Weinstein RN Maternal Medicine Comment on above: 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) Question (OB Questio n) Start: 08-25-2024 End: 08-26-2024 [facility] Start: 08-23-2024 End: 08-23-2024 ambulatory Valentina Yo MD Work Phone: OB/Gynecology Start: 08-23-2024 End: 08-23-2024 Patient encounter procedure Valentina Yo MD Work Phone: OB/Gynecology Comment on above: Another appointment Start: 08-23-2024 End: 08-29-2024 Telephone encounter Valentina Yo MD Work Phone: OB/Gynecology Comment on above: Induction of Labor Breast Pump Start: 08-22-2024 End: 08-22-2024 [facility] Start: 08-22-2024 End: 08-22-2024 Patient encounter procedure Nallely Romero MD Work Phone: OB/Gynecology Comment on above: 39 weeks gestation o f (Primary Dx); Obesity affecting in third trimester, unspecified obesity type; Encounter for supervision of high risk in third trimester, antepartum Start: 08-16-2024 End: 08-16-2024 Patient encounter procedure Jackie Candelaria APRN.CNM Work Phone: OB/Gynecology Comment on above: Encounter for superv ision of high risk in third trimester, antepartum (Primary Dx); 38 weeks gestation of ; Obesity affecting in third trimester, unspecified obesity type; Heartburn during in third trimester; Positive GBS test Start: 08-16-2024 End: 08-16-2024 ambulatory [facility] Facility:[facility] Start: 08-09-2024 End: 08-09-2024 Patient encounter procedure Valentina Yo MD Work Phone: OB/Gynecology Comment on above: Encounter for superv ision of high risk in third trimester, antepartum (Primary Dx); 37 weeks gestation of ; Obesity affecting in third trimester, unspecified obesity type Start: 08-09-2024 End: 08-09-2024 ambulatory [facility] Facility:[facility] Start: 08-02-2024 End: 08-02-2024 Patient encounter procedure Oneida Mattson APRN.CNM Work Phone: OB/Gynecology Comment on above: Obesity affecting pr egnancy in third trimester, unspecified obesity type (Primary Dx); Heartburn during in third trimester; 36 weeks gestation of ; Positive GBS test Start: 08-02-2024 End: 08-02-2024 [facility] Facility:[facility] Start: 07-29-2024 End: 07-29-2024 [facility] Start: 07-29-2024 End: 07-29-2024 Patient encounter procedure [employer] [facility] Maternal [facility] Comment on above: Encounter for ultras ound to check growth (Primary Dx); Obesity affecting in third trimester, unspecified obesity type; 36 weeks gestation of Start: 07-26-2024 End: 07-26-2024 [facility] Facility:[facility] Start: 07-26-2024 End: 07-26-2024 Patient encounter procedure Oneida Mattson APRN.CNM Work Phone: OB/Gynecology Comment on above: 35 weeks gestation o f (Primary Dx); Obesity affecting in third trimester, unspecified obesity type; Heartburn during in third trimester Start: 07-16-2024 End: 07-16-2024 ambulatory [facility] Facility:[facility] Start: 07-16-2024 End: 07-16-2024 Office outpatient visit 15 minutes Valentina Yo MD Work Phone: OB/Gynecology Comment on above: Obesity affecting pr egnancy in third trimester, unspecified obesity type (Primary Dx); Encounter for ultrasound to check growth; tachycardia affecting management of mother; 34 weeks gestation of Start: 07-03-2024 End: 07-05-2024 Telephone encounter Jackie Candelaria APRN.CNM Work Phone: OB/Gynecology Start: 07-01-2024 End: 07-01-2024 ambulatory Jackie Candelaria Facility:[facility] Start: 06-28-2024 End: 06-28-2024 Office outpatient visit 15 minutes Valentina Yo MD Work Phone: OB/Gynecology Comment on above: Obesity affecting pr egnancy in third trimester, unspecified obesity type (Primary Dx); 31 weeks gestation of ; Need for vaccination Start: 06-28-2024 End: 06-28-2024 ambulatory [facility] Facility:[facility] Start: 06-28-2024 End: 06-28-2024 Patient encounter procedure [employer] [facility] Work Phone: OB/Gynecology Comment on above: Encounter for ultras ound to check growth (Primary Dx); Obesity affecting in third trimester, unspecified obesity type; 31 weeks gestation of Start: 06-14-2024 End: 06-14-2024 ambulatory [facility] Facility:[facility] Start: 06-14-2024 End: 06-14-2024 Office outpatient visit 15 minutes Valentina Yo MD Work Phone: OB/Gynecology Comment on above: 29 weeks gestation o f (Primary Dx); Encounter for supervision of high risk in third trimester, antepartum; Obesity affecting in third trimester, unspecified obesity type Start: 05-31-2024 End: 05-31-2024 ambulatory Evie Montes APRN.TRIAGE REGISTERED NURSE Work Phone: OB/Gynecology Comment on above: Insurance Start: 05-31-2024 E-mail encounter fro m caregiver Evie Montes DIANA Work Phone: OB/Gynecology Start: 05-31-2024 End: 05-31-2024 Patient encounter procedure Evie Montes APRN.TRIAGE REGISTERED NURSE Work Phone: OB/Gynecology Comment on above: Encounter [...] End: 05-03-2024 Patient encounter procedure Jackie Bari APARICIOCNM Work Phone: OB/Gynecology Comment on above: Encounter for superv ision of high risk in first trimester, antepartum (Primary Dx); 23 weeks gestation of ; Supervision of high risk in second trimester; Chlamydia infection affecting in first trimester; UTI (urinary tract infection) in , antepartum; Ovarian cyst, right; History of macrosomia in in prior , currently ; Nausea/vomiting in ; Heartburn during in second trimester; Obesity in , antepartum; Irritant dermatitis Start: 05-03-2024 End: 05-03-2024 ambulatory [facility] Facility:[facility] Start: 04-16-2024 End: 04-16-2024 ambulatory [facility] Facility:[facility] Start: 04-16-2024 End: 04-16-2024 Patient encounter procedure Sanaz SORIANO Work Phone: [facility] Comment on above: Fever, unspecified f ever cause (Primary Dx); Sore throat Start: 04-11-2024 End: 04-11-2024 ambulatory JOCELYNN ARAIZA Facility[facility] Start: 04-11-2024 End: 04-11-2024 Patient encounter procedure [employer] [facility] Comment on above: Encounter for anatomic survey (Primary Dx); 18 weeks gestation of ; Obesity affecting in third trimester, unspecified obesity type Start: 04-09-2024 Telephone encounter Jocelynn Araiza MD Work Phone: OB/Gynecology Comment on above: Lab Orders Start: 03-29-2024 End: 03-29-2024 ambulatory JOCELYNN ARAIZA Facility:[facility] Start: 03-29-2024 End: 03-29-2024 Patient encounter procedure Jocelynn Araiza MD Work Phone: OB/Gynecology Comment on above: Supervision of high risk in second trimester (Primary Dx); 18 weeks gestation of ; Nausea/vomiting in ; Severe obesity due to excess calories affecting , antepartum (HCC); Heartburn during in second trimester Start: 03-19-2024 End: 03-19-2024 Emergency department patient visit [facility] Facility: Start: 03-19-2024 End: 03-19-2024 Emergency department [facility] Start: 03-19-2024 Telephone encounter Nallely guzman MD Work Phone: OB/Gynecology Comment on above: Covid Positive Start: 02-15-2024 End: 02-15-2024 ambulatory EVIE MONTES Facility:[facility] Start: 02-15-2024 End: 02-15-2024 Patient encounter procedure [employer] [facility] Work Phone: OB/Gynecology Comment on above: [...] Nausea/vomiting in Start: 01-25-2024 End: 01-25-2024 ambulatory DUSTY BARNARD FROYLAN Facility:[facility] Start: 01-18-2024 End: 01-18-2024 [facility] Start: 01-18-2024 End: 01-18-2024 Patient encounter procedure Oneida Mattson MICHELLE.CNM Work Phone: OB/Gynecology Comment on above: 8 weeks gestation of (Primary Dx); Chlamydia infection affecting in first trimester; Nausea/vomiting in Start: 01-17-2024 Telephone encounter Evie marquez APRN.[employer] REGISTERED NURSE Work Phone: OB/Gynecology Comment on above: Results Start: 01-16-2024 End: 01-17-2024 Emergency department patient visit TARIQ YODER MD Facility: Start: 01-16-2024 End: 01-16-2024 Emergency department patient visit TARIQ YODER MD [facility] Start: 01-16-2024 End: 01-16-2024 Emergency department patient visit [facility] Work Phone: Start: 01-16-2024 Telephone encounter Jackie aguillon APRN.CNM Work Phone: OB/Gynecology Comment on above: Nausea & Vomiting Start: 01-15-2024 End: 01-15-2024 Patient encounter procedure Evie Montes APRN.[employer] REGISTERED NURSE Work Phone: OB/Gynecology Comment on above: with uncer tain dates in first trimester (Primary Dx) Start: 01-15-2024 End: 01-15-2024 ambulatory EVIE MONTES Facility:[facility] Start: 01-15-2024 End: 01-15-2024 Patient encounter procedure Evie Montes APRN.[employer]IAGE REGISTERED NURSE Work Phone: OB/Gynecology Comment on above: Encounter for superv ision of high risk in first trimester, antepartum (Primary Dx); 8 weeks gestation of ; with uncertain dates in first trimester; History of macrosomia in infant in prior , currently ; Ovarian cyst, right; Constipation during in first trimester; Nausea/vomiting in ; Family history of diabetes mellitus; Obesity affecting in first trimester, unspecified obesity type; Encounter for screening for malignant neoplasm of cervix Start: 01-08-2024 End: 01-08-2024 Emergency department patient visit [facility] Work Phone: Start: 01-05-2024 End: 01-05-2024 Emergency department patient visit [facility] Work Phone: Start: 2024 End: 2024 ambulatory JOCELYNN Darline ARAIZA Facility:[facility] Start: 2024 Telephone encounter Nallely guzman MD Work Phone: OB/Gynecology Comment on above: Early OB Bleeding Start: 01-01-2024 End: 01-01-2024 ambulatory DUSTY GALEANO Facility:[facility] Start: 12-29-2023 Telephone encounter Danae gr MD Work Phone: OB/Gynecology Comment on above: ER F/U Start: 12-29-2023 End: 12-29-2023 ambulatory KAREN GRIFFIN Facility:[facility] Start: 12-28-2023 End: 12-28-2023 Emergency department patient visit [facility] Work Phone: Start: 12-05-2023 End: 12-05-2023 Emergency department patient visit BROOKE HSU MD Facility:[facility] Start: 11-09-2023 End: 11-09-2023 ambulatory DUSTY GALEANO [facility] Start: 10-25-2022 End: 10-25-2022 Emergency department patient visit [facility] Start: 10-19-2022 End: 10-19-2022 Emergency department patient visit [facility] Start: 07-19-2022 End: 07-20-2022 Emergency department patient visit [facility] Start: 03-04-2022 End: 03-04-2022 Emergency department patient visit [facility] Start: 03-14-2018 End: 05-10-2018 Ambulatory [facility] Date Procedure Procedure Detail Performing Clinician Start: 10-29-2024 UA DIP,URINE HCG (POC) Oneida Mattson DENTAL SCHEDULING COORDINATOR.CNM Work Phone: Start: 08-28-2024 Urnls dip stick/tabl et rgnt non-auto w/o micrscp Valentina Yo MD Work Phone: Start: 08-26-2024 Urnls dip stick/tabl et rgnt non-auto w/o micrscp Jackie Candelaria DENTAL SCHEDULING COORDINATOR.CNM Work Phone: Start: 08-16-2024 Urnls dip stick/tabl et rgnt non-auto w/o micrscp Jackie Candelaria DENTAL SCHEDULING COORDINATOR.CNM Work Phone: Start: 08-09-2024 Urnls dip stick/tabl et rgnt non-auto w/o micrscp Valentina Yo MD Work Phone: Start: 08-02-2024 Urnls dip stick/tabl et rgnt non-auto w/o micrscp Oneida Mattson DENTAL SCHEDULING COORDINATOR.CNM Work Phone: Start: 07-29-2024 Us preg uterus after 1st trimest 11/06 gestation Valentina Yo MD Work Phone: Start: 07-26-2024 Urnls dip stick/tabl et rgnt non-auto w/o micrscp Oneida Mattson DENTAL SCHEDULING COORDINATOR.CNM Work Phone: Start: 07-16-2024 Urnls dip stick/tabl et rgnt non-auto w/o micrscp Valentina Yo MD Work Phone: Start: 06-28-2024 Us preg uterus after 1st trimest 11/06 gestation Evie Montes DENTAL SCHEDULING COORDINATOR.TRIAGE REGISTERED NURSE Work Phone: Start: 04-16-2024 INFLUENZA A&B MOLECU LAR (POC) Sanaz Kaiser PA Work Phone: Start: 04-16-2024 STREP A MOLECULAR (POC) Sanaz SORIANO Work Phone: Start: 04-11-2024 Us preg uterus after 1st trimest 11/06 gestation Jocelynn Araiza MD Work Phone: Start: 02-15-2024 Antibody screen EVIE NEELY Comment on above: Order Comment: Speci men Type: BLOOD SPECIMENOrdering Facility: [facility] Address: [address] [place] [address] Performed By: #### T SPN ####CC MAIN BLOOD BANKCLIA [id number] [place] [address] [place] Start: 02-15-2024 Us nuchal zamudio slucency 1st gestation Evie Montes APRN.TRIAGE REGISTERED NURSE Work Phone: Start: 01-15-2024 Us uterus l imited fetuses Evie Montes APRN.TRIAGE REGISTERED NURSE Work Phone: Start: 01-15-2024 Adult depression scr eening assessment Oneida Mattson APRN.CNM Work Phone: Start: 01-08-2024 Transvaginal obstetr ic ultrasonography Start: 12-28-2023 Transvaginal obstetr ic ultrasonography Start: 07-19-2022 Plain chest X-ray Cholecystectomy CLARE Stokse MD SARS-CoV-2 & FLU Ant igen (Rapid) Plan of Treatment Date Care Activity Detail Author Start: 06-28-2034 Urine microalbumin profile DTaP,Tdap,Td Vaccine (10 - Td or Tdap) [facility] Start: 01-14-2027 Screening for malign ant neoplasm of cervix [facility] Start: 11-16-2026 Urine microalbumin profile DTaP,Tdap,Td Vaccine (9 - Td or Tdap) [facility] Start: 10-10-2025 End: 10-10-2025 Patient encounter procedure 10/10/2025 11:30 AM EST Office Visit OB/Gynecology [address] [place] [address] Oneida Mattson APRN.CN [address] [place] [address] Annual OB/Gynecology Comment on above: Annual Start: 05-31-2025 GC (Gonorrhea) Screening (18-24) GC (Gonorrhea) Screening (18-24) [facility] Start: 05-31-2025 Screening for Chlamy harish trachomatis Chlamydia Screening (18) [facility] Start: 05-03-2025 GC (Gonorrhea) Screening (18-24) GC (Gonorrhea) Screening (18-24) [facility] Start: 05-03-2025 Screening for Chlamy harish trachomatis Chlamydia Screening (18) [facility] Start: 01-14-2025 Anxiety Screening Anxiety Screening [facility] Start: 01-14-2025 Depression Screening Depression Scre ening [facility] Start: 01-14-2025 GC (Gonorrhea) Screening (18-) GC (Gonorrhea) Screening (18) [facility] Start: 01-14-2025 Screening for Chlamy harish trachomatis Chlamydia Screening () [facility] Start: 10-29-2024 End: 10-29-2024 Patient encounter procedure 10/29/2024 10:30 AM EST Office Visit OB/Gynecology [address] [place] [address] Oneida Mattson APRN.CN [address] [place] [address] care and examination [Z39.2]; Encounter for routine examination for contraception [Z01.419] OB/Gynecology Comment on above: care and examination [Z39.2]; Encounter for routine examination for contraception [Z01.419] Start: 10-10-2024 End: 10-10-2024 Patient encounter procedure 10/10/2024 10:30 AM EST Office Visit OB/Gynecology [address] [place] [address] Oneida Mattson APRN.CN [address] [place] [id number] PP OB/Gynecology Comment on above: PP Start: 08-28-2024 End: 08-28-2024 Patient encounter procedure OB/Gynecology Comment on above: OB/NST Start: 08-23-2024 End: 08-23-2024 Patient encounter procedure OB/Gynecology Comment on above: NST OB Routine Start: 08-23-2024 End: 08-23-2024 Patient encounter procedure 08/23/2024 11:10 AM EDT Routine Office Visit OB/Gynecology [address] [place] [address] Valentina Yo MD [address] [place] [address] Routine OB OB/Gynecology Comment on above: Routine [...] AM EDT Routine Office Visit [facility] [address] [place] [address] Growth [facility] Comment on above: Growth Start: 07-26-2024 End: 07-26-2024 Patient encounter procedure 07/26/2024 9:45 AM EDT Routine Office Visit OB/Gynecology [address] [place] [address] Oneida Mattson APRN.[facility] [address] [place] [address] OB f/up OB/Gynecology Comment on above: OB f/up Start: 07-16-2024 End: 07-16-2025 OBSTETRIC ULTRASOUND WHI OBSTETRIC ULTRASOUND WHI Anc Imaging Routine Obesity affecting in third trimester, unspecified obesity type Encounter for ultrasound to check growth Expected: 07/16/2024, Expires: 07/16/2025 [facility] Work Phone: Comment on above: Expected: 07/16/2024 , Expires: 07/16/2025 Start: 07-12-2024 End: 07-12-2024 Patient encounter procedure 07/12/2024 11:20 AM EDT Routine Office Visit OB/Gynecology [address] [id number] Danae Ashraf MD [address] [place] [id number] OB-needs to schedule repeat growth ultrasound OB/Gynecology Comment on above: OB-needs to schedule repeat growth ultrasound Start: 07-07-2024 Covid-19 Vaccine ( season) Covid-19 Vaccine ( season) [facility] Start: 07-07-2024 Covid-19 Vaccine ( season) Covid-19 Vaccine ( season) [facility] Start: 07-07-[address] [facility] Start: 07-07-2024 RSV Vaccine (1 - Ris k 1-dose series) RSV Vaccine (1 - Risk 1-dose series) [facility] Start: 06-28-2024 End: 06-28-2024 Patient encounter procedure OB/Gynecology Comment on above: Growth US OB/Growth Start: 06-14-2024 End: 06-14-2024 Patient encounter procedure 06/14/2024 9:50 AM EDT Routine Office Visit OB/Gynecology [address] [place] [phone] Valentina Yo MD [address] [place] [id number] ob OB/Gynecology Comment on above: ob Start: 06-02-2024 End: 09-01-2024 CBC W Auto Differential panel - Blood COMPLETE BLOOD COUNT AND DIFFERENTIAL Lab Routine 23 weeks gestation of Supervision of risk in second trimester Expected: 06/02/2024 (Approximate), Expires: 09/01/2024 [facility] Comment on above: Expected: 06/02/2024 (Approximate), Expires: 09/01/2024 Start: 06-02-2024 End: 09-01-2024 GESTATIONAL GLUCOSE SCREEN, 1-HOUR, 50 GRAM, NON-FASTING GESTATIONAL GLUCOSE SCREEN, 1-HOUR, 50 GRAM, NON-FASTING Lab Routine 23 weeks gestation of Supervision of high risk in second trimester Expected: 06/02/2024 (Approximate), Expires: 09/01/2024 [facility] Work Phone: Comment on above: Expected: 06/02/2024 (Approximate), Expires: 09/01/2024 Start: 06-02-2024 End: 09-01-2024 SYPHILIS TOTAL W/REFLEX SYPHILIS TOTAL W/REFLEX Lab Routine 23 weeks gestation of Supervision of high risk in second trimester Expected: 06/02/2024 (Approximate), Expires: 09/01/2024 [facility] Comment on above: Expected: 06/02/2024 (Approximate), Expires: 09/01/2024 Start: 05-31-2024 End: 05-31-2025 OBSTETRIC ULTRASOUND WHI OBSTETRIC ULTRASOUND WHI Anc Imaging Routine Encounter for supervision of high risk in third trimester, antepartum 27 weeks gestation of Obesity affecting in third trimester, unspecified obesity type Expected: 05/31/2024, Expires: 05/31/2025 [facility] Work Phone: Comment on above: Expected: 05/31/2024 , Expires: 05/31/2025 Start: 05-31-2024 End: 05-31-2024 Patient encounter procedure OB/Gynecology Comment on above: OB OB-Needs GC/C Start: 05-31-2024 End: 05-31-2024 ambulatory 05/31/2024 8:45 AM EDT Results Only [facility] [address] [place] [address] Labs/1 hr Gluclose non-fasting [facility] Comment on above: Labs/1 hr Gluclose n on-fasting Start: 04-26-2024 End: 04-26-2024 Patient encounter procedure 04/26/2024 10:40 AM EDT Routine Office Visit OB/Gynecology [address] [place] [address] Jocelynn Araiza MD [address] [place] [address] OB OB/Gynecology Comment on above: OB Start: 04-11-2024 End: 04-11-2024 Patient encounter procedure 04/11/2024 3:00 PM EDT Routine Office Visit Maternal Medicine [address] [phone] Anatomy Maternal Medicine Comment on above: Anatomy Start: 04-02-2024 End: 04-02-2024 ambulatory 04/02/2024 11:15 AM EDT Results Only [place] [facility] [address] [place] [address] [place] [facility] Start: 03-29-2024 End: 06-28-2024 ALPHA FETOPRO MATERNAL ALPHA FETOPRO MATERNAL Lab Routine 18 weeks gestation of Supervision of high risk in second trimester Expected: 03/29/2024, Expires: 06/28/2024 [facility] Comment on above: Expected: 03/29/2024 , Expires: 06/28/2024 Start: 03-29-2024 End: 03-29-2024 Patient encounter procedure 03/29/2024 9:50 AM EDT Routine Office Visit OB/Gynecology [address] [place] [address] Jocelynn Araiza MD [address] [place] [address] ob OB/Gynecology Comment on above: ob Start: 03-25-2024 End: 03-25-2025 OBSTETRIC ULTRASOUND WHI OBSTETRIC ULTRASOUND WHI Anc Imaging Routine 18 weeks gestation of Expected: 03/25/2024, Expires: 03/25/2025 [facility] Work Phone: Comment on above: Expected: 03/25/2024 , Expires: 03/25/2025 Start: 02-15-2024 End: 05-16-2024 Chromosome 21 trisomy [Presence] in Blood or Tissue by Cytogenetics [facility] Work Phone: Comment on above: Expected: 02/15/2024 , Expires: 05/16/2024 Start: 01-15-2024 End: 04-15-2024 CARRIER SCREEN, STANDARD CARRIER SCREEN, STANDARD Lab Routine Encounter for supervision of high risk in first trimester, antepartum 8 weeks gestation of Expected: 01/15/2024, Expires: 04/15/2024 [facility] Work Phone: Comment on above: Expected: 01/15/2024 , Expires: 04/15/2024 Start: 01-15-2024 End: 04-15-2024 CBC panel - Blood by Automated count CBC Lab Routine Encounter for supervision of high risk in first trimester, antepartum 8 weeks gestation of with uncertain dates in first trimester Expected: 01/15/2024, Expires: 04/15/2024 [facility] Work Phone: Comment on above: Expected: 01/15/2024 , Expires: 04/15/2024 Start: 01-15-2024 End: 04-15-2024 Hemoglobin A1c in Blood HGB A1C Lab Routine Encounter for supervision of high risk in first trimester, antepartum 8 weeks gestation of with uncertain dates in first trimester Expected: 01/15/2024, Expires: 04/15/2024 [facility] Work Phone: Comment on above: Expected: 01/15/2024 , Expires: 04/15/2024 Start: 01-15-2024 End: 04-15-2024 Hepatitis B virus surface Ag [Presence] in Serum HEP B SURF AG SCRN Lab Routine Encounter for supervision of high risk in first trimester, antepartum 8 weeks gestation of with uncertain dates in first trimester Expected: 01/15/2024, Expires: 04/15/2024 [facility] Work Phone: Comment on above: Expected: 01/15/2024 , Expires: 04/15/2024 Start: 01-15-2024 End: 04-15-2024 Hepatitis C virus Ab [Presence] in Serum HEPATITIS C ANTIBODY IA WITH CONFIRMATION Lab Routine Encounter for supervision of high risk in first trimester, antepartum 8 weeks gestation of with uncertain dates in first trimester Expected: 01/15/2024, Expires: 04/15/2024 [facility] Work Phone: Comment on above: Expected: 01/15/2024 , Expires: 04/15/2024 Start: 01-15-2024 End: 04-15-2024 HIV 1+2 Ab [Presence] in Serum or Plasma by Immunoassay HIV 1 2 COMBO(AG/AB),WITH REFLEX TO DIFFERENTIATION Lab Routine Encounter for supervision of high risk in first trimester, antepartum 8 weeks gestation of with uncertain dates in first trimester Expected: 01/15/2024, Expires: 04/15/2024 [facility] Work Phone: Comment on above: Expected: 01/15/2024 , Expires: 04/15/2024 Start: 01-15-2024 End: 01-14-2025 NUCHAL TRANSLUCENCY WHI NUCHAL TRANSLUCENCY WHI Anc Imaging Routine Encounter for supervision of high risk in first trimester, antepartum 8 weeks gestation of with uncertain dates in first trimester Expected: 01/15/2024, Expires: 01/14/2025 [facility] Work Phone: Comment on above: Expected: 01/15/2024 , Expires: 01/14/2025 Start: 01-15-2024 End: 04-15-2024 RUBELLA IGG AB RUBELLA IGG AB Lab Routine Encounter for supervision of high risk in first trimester, antepartum 8 weeks gestation of with uncertain dates in first trimester Expected: 01/15/2024, Expires: 04/15/2024 [facility] Work Phone: Comment on above: Expected: 01/15/2024 , Expires: 04/15/2024 Start: 01-15-2024 End: 04-15-2024 SYPHILIS TOTAL W/REFLEX SYPHILIS TOTAL W/REFLEX Lab Routine Encounter for supervision of high risk in first trimester, antepartum 8 weeks gestation of with uncertain dates in first trimester Expected: 01/15/2024, Expires: 04/15/2024 [facility] Work Phone: Comment on above: Expected: 01/15/2024 , Expires: 04/15/2024 Start: 01-15-2024 End: 04-15-2024 TYPE + SCREEN TYPE + SCREEN Blood Bank Routine Encounter for supervision of high risk in first trimester, antepartum 8 weeks gestation of with uncertain dates in first trimester Expected: 01/15/2024, Expires: 04/15/2024 [facility] Work Phone: Comment on above: Expected: 01/15/2024 , Expires: 04/15/2024 Start: 01-08-2024 [facility] Start: 01-05-2024 [facility] Start: 2024 Screening for malign ant neoplasm of cervix Pap Testing [facility] Start: 12-28-2023 [facility] Start: 11-06-2023 Behavioral Health Screening Behavioral Health Screening [facility] Start: 11-06-2023 Depression Assessment Depression Ass essment [facility] Start: 07-07-2023 Covid-19 Vaccine ( season) Covid-19 Vaccine ( season) [facility] Start: 07-07-2023 Influenza vaccination Influenza Vacc ine (#1) [facility] Start: 10-19-2022 [facility] Work Phone: Start: 06-24-2021 Meningococcal B Vaccine: Consider Based On Risk (2 of 2 - Risk Bexsero 2-dose series) Meningococcal B Vaccine: Consider Based On Risk (2 of 2 - Risk Bexsero 2-dose series) [facility] Start: 2021 Anxiety Screening Anxiety Screening [facility] Start: 2021 Depression Screening Depression Scre ening [facility] Start: 2021 GC (Gonorrhea) Screening (18-24) GC (Gonorrhea) Screening (18-24) [facility] Start: 2021 Screening for Chlamy harish trachomatis Chlamydia Screening (18-) [facility] Start: 2017 Peds To Adult Transition Annual Assessment Peds To Adult Transition Annual Assessment [facility] Start: 2015 Peds To Adult Transition Initial Discussion Peds To Adult Transition Initial Discussion [facility] Start: 2003 Covid-19 Vaccine (#1) Covid-19 Vacci ne (#1) [facility] Bacteria identified in Urine by Culture URINE CULTURE Microbiology Routine Encounter for supervision of high risk in first trimester, antepartum 8 weeks gestation of with uncertain dates in first trimester 01/15/2024 11:12 AM [facility] Work Phone: Bacteria identified in Urine by Culture URINE CULTURE Microbiology Routine Encounter for supervision of high risk in first trimester, antepartum 02/15/2024 10:34 AM [facility] Work Phone: Chlamydia trachomatis+Neisseria gonorrhoeae DNA [Presence] in Unspecified specimen by LILIA with probe detection GONORRHEA/CHLAMYDIA NAAT Lab Routine Encounter for supervision of high risk in first trimester, antepartum 8 weeks gestation of with uncertain dates in first trimester 01/15/2024 11:12 AM AOL [facility] Work Phone: Chlamydia trachomatis+Neisseria gonorrhoeae DNA [Presence] in Unspecified specimen by LILIA with probe detection GONORRHEA/CHLAMYDIA NAAT Lab Routine Chlamydia infection affecting in first trimester 05/03/2024 10:05 AM [facility] Chlamydia trachomatis+Neisseria gonorrhoeae DNA [Presence] in Unspecified specimen by LILIA with probe detection GONORRHEA/CHLAMYDIA NAAT Lab Routine Encounter for supervision of high risk in third trimester, antepartum 27 weeks gestation of Obesity affecting in third trimester, unspecified obesity type Chlamydia infection affecting in first trimester 05/31/2024 9:44 AM [facility] nonstress test NON-S TRESS TEST Procedures Routine 35 weeks gestation of Obesity affecting in third trimester, unspecified obesity type Ordered: 07/26/2024 [facility] Work Phone: Comment on above: Ordered: 07/26/2024 End: 09-03-2024 nonstress test NON-STRESS TEST Procedures Routine Obesity affecting in third trimester, unspecified obesity type Encounter for supervision of high risk in third trimester, antepartum 38 weeks gestation of Once per week for 3 Occurrences starting 08/16/2024 until 09/03/2024 [facility] Work Phone: Comment on above: Once per week for 3 Occurrences starting 08/16/2024 until 09/03/2024 NEXPLANON INSERTION NEXPLANON IN SERTION Procedures Routine care and examination Encounter for routine examination for contraception Ordered: 10/10/2024 [facility] Work Phone: Comment on above: Ordered: 10/10/2024 NEXPLANON INSERTION NEXPLANON IN SERTION Procedures Routine Insertion of implantable subdermal contraceptive Ordered: 10/29/2024 [facility] Work Phone: Comment on above: Ordered: 10/29/2024 PAP TEST PAP TEST Lab Dai silva Encounter for screening for malignant neoplasm of cervix 01/15/2024 12:15 PM EDT [facility] Work Phone: Patient Education [facility] Work Phone: Patient referral [facility] Work Phone: ROUTINE, GR OUP B STREP PCR ROUTINE, GROUP B STREP PCR Microbiology Routine 35 weeks gestation of 07/26/2024 10:28 AM EDT [facility] URINE OB DIP B/O URINE OB DIP B/ O Lab Routine Obesity affecting in third trimester, unspecified obesity type 31 weeks gestation of Ordered: 06/28/2024 [facility] Work Phone: Comment on above: Ordered: 06/28/2024 End: 01-31-2025 US Pelvis transvaginal US FEMALE PELVIS TRANSVAG Radiology Routine Vaginal bleeding in , first trimester 1 Occurrences starting 2024 until 01/31/2025 [facility] Work Phone: Comment on above: 1 Occurrences starti ng 2024 until 01/31/2025 [facility] Immunizations Immunization Date Immunization Notes Care Provider Mahesh whitman 06-28-2024 tetanus toxoid, redu francesco diphtheria toxoid, and acellular pertussis vaccine, adsorbed Valentina Yo MD Work Phone: [facility] 05-27-2021 hepatitis A vaccine, pediatric/adolescent dosage, 2 dose schedule Nallely Romero MD Work Phone: [facility] Work Phone: 05-27-2021 Human Papillomavirus 9-valent vaccine Nallely Romero MD Work Phone: [facility] Work Phone: 05-27-2021 meningococcal B vacc ine, recombinant, OMV, adjuvanted Nallely Romero MD Work Phone: [facility] Work Phone: 05-27-2021 meningococcal polysaccharide (groups A, C, Y and W-135) diphtheria toxoid conjugate vaccine (MCV4P) Nallely Romero MD Work Phone: [facility] Work Phone: 09-29-2017 Human Papillomavirus 9-valent vaccine Nallely Romero MD Work Phone: [facility] Work Phone: 09-29-2017 influenza, injectabl e, quadrivalent, preservative free Nallely Romero MD Work Phone: [facility] Work Phone: 09-29-2017 meningococcal polysaccharide (groups A, C, Y and W-135) diphtheria toxoid conjugate vaccine (MCV4P) Nallely Romero MD Work Phone: [facility] Work Phone: 09-29-2017 influenza virus vacc ine, unspecified formulation Nallely Romero MD Work Phone: [facility] 01-27-2017 measles, mumps and rubella virus vaccine [facility] 11-16-2016 tetanus toxoid, redu francesco diphtheria toxoid, and acellular pertussis vaccine, adsorbed Nallely Romero MD Work Phone: [facility] 07-27-2016 influenza, injectabl e, quadrivalent, contains preservative Nallely Romero MD Work Phone: [facility] 08-24-2015 influenza virus vacc ine, live, attenuated, for intranasal use Nallely Romero MD Work Phone: [facility] 08-24-2015 tetanus toxoid, redu francesco diphtheria toxoid, and acellular pertussis vaccine, adsorbed Nallely Romero MD Work Phone: [facility] Work Phone: 12-02-2014 tetanus toxoid, redu francesco diphtheria toxoid, and acellular pertussis vaccine, adsorbed [facility] 08-01-2014 influenza virus vacc ine, live, attenuated, for intranasal use Nallely Romero MD Work Phone: [facility] 11-30-2009 novel influenza-H1N1 -09, preservative-free, injectable Nallely Romero MD Work Phone: [facility] Work Phone: 10-28-2009 influenza, seasonal, injectable, preservative free Nallely Romero MD Work Phone: [facility] Work Phone: 10-28-2009 novel Influenza-H1N1 -09, live virus for nasal administration Nallely Romero MD Work Phone: [facility] 11-21-2008 influenza virus vacc ine, whole virus Nallely Romero MD Work Phone: [facility] Work Phone: 01-11-2008 diphtheria, tetanus toxoids and acellular pertussis vaccine, unspecified formulation Nallely Romero MD Work Phone: [facility] Work Phone: 01-11-2008 measles, mumps and rubella virus vaccine Nallely Romero MD Work Phone: [facility] Work Phone: 01-11-2008 poliovirus vaccine, inactivated Nallely Romero MD Work Phone: [facility] Work Phone: 01-11-2008 varicella virus vaccine Nikita Romero MD Work Phone: [facility] Work Phone: 08-25-2004 influenza virus vacc ine, whole virus Nallely Romero MD Work Phone: [facility] 08-25-2004 pneumococcal conjuga te vaccine, 7 valent Nallely Romero MD Work Phone: [facility] 05-24-2004 diphtheria, tetanus toxoids and acellular pertussis vaccine, unspecified formulation Nallely Romero MD Work Phone: [facility] 05-24-2004 haemophilus influenz ae type b conjugate and Hepatitis B vaccine Nallely Romero MD Work Phone: [facility] 05-24-2004 haemophilus influenz ae type b vaccine, PRP-T conjugate Nallely Romero MD Work Phone: [facility] Work Phone: 05-24-2004 hepatitis B vaccine, pediatric or pediatric/adolescent dosage Nallely Romero MD Work Phone: [facility] Work Phone: 01-05-2004 hepatitis B vaccine, pediatric or pediatric/adolescent dosage Nallely Romero MD Work Phone: [facility] 01-05-2004 measles, mumps and rubella virus vaccine Nallely Romero MD Work Phone: [facility] 01-05-2004 varicella virus vaccine Nikita Romero MD Work Phone: [facility] 2003 diphtheria, tetanus toxoids and acellular pertussis vaccine Nallely Romero MD Work Phone: [facility] Work Phone: 2003 DTaP-hepatitis B and poliovirus vaccine Nallely Romero MD Work Phone: [facility] 2003 haemophilus influenz ae type b vaccine, PRP-T conjugate Nallely Romero MD Work Phone: [facility] Work Phone: 2003 hepatitis B vaccine, pediatric or pediatric/adolescent dosage Nallely Romero MD Work Phone: [facility] Work Phone: 2003 influenza virus vacc ine, whole virus Nallely Romero MD Work Phone: [facility] 2003 pneumococcal conjuga te vaccine, 7 valent Nallely Romero MD Work Phone: [facility] 2003 poliovirus vaccine, inactivated Nallely Romero MD Work Phone: [facility] Work Phone: 2003 diphtheria, tetanus toxoids and acellular pertussis vaccine, unspecified formulation Nallely Romero MD Work Phone: [facility] 2003 haemophilus influenz ae type b vaccine, PRP-T conjugate Nallely Romero MD Work Phone: [facility] Work Phone: 2005 pneumococcal conjuga te vaccine, 7 valent Nallely Romero MD Work Phone: [facility] 2003 poliovirus vaccine, inactivated Nallely Romero MD Work Phone: [facility] 2003 diphtheria, tetanus toxoids and acellular pertussis vaccine, unspecified formulation Nallely Romero MD Work Phone: [facility] 2003 haemophilus influenz ae type b vaccine, PRP-T conjugate Nallely Romero MD Work Phone: [facility] Work Phone: 2003 pneumococcal conjuga te vaccine, 7 valent Nallely Romero MD Work Phone: [facility] 2003 poliovirus vaccine, inactivated Nallely Romero MD Work Phone: [facility] Payers Date Payer Category Payer Private Health Insurance HUMANA HU[employer]NA MEDICAID [facility] [id number] 2024-Present [address] [address] [place] [address] Medicaid [id number] 2024 Unknown [id number] 2023 Medicaid [id number] 2023 Self-pay [id number] 2022 Unknown [employer] PPO [id number] 2022-Present [phone] [address] [place] [address] PPO [id number] 2022 Unknown [id number] 2015 Unknown [id number] 2003 Unknown [id number] 79 2003 Unknown [id number] 27 2003 Unknown [id number] 27 2003 Unknown [id number] 27 2003 Unknown [id number] [id number] 27 Unknown [id number] Unknown [id number] 62 Unknown [id number] [id number] 62 Unknown [id number] [id number] 62 Unknown [id number] [id number] 62 Unknown [id number] 2.16.840.1.359251.3.579.2.4 62 Unknown [id number] 2.16.840.1.574964.3.579.2.4 62 Unknown [id number] [id number] 62 Unknown [id number] 62 Social History Date Type Detail Facility [facility] Work Phone: Start: 03-04-2022 End: 01-08-2024 Tobacco smoking status KYIS Unknown if ever smoked [facility] Start: 2005 Sex Assigned At Female W [facility] Start: 10-09-2019 End: 07-26-2024 Tobacco smoking status Never smoked tobacco (finding) [facility] Sex Assigned At Sex [facility] Start: 12-02-2023 [facility] End: 05-26-2016 History of tobacco use Cigarette Smoker [facility] Start: 01-01-2024 End: 09-12-2024 Tobacco use and exposure Smokeless tobacco non-user [facility] Start: 01-01-2024 End: 10-29-2024 Alcohol intake Current non-drinker of alcohol (finding) [facility] Start: 01-01-2024 End: 07-26-2024 History of Social function [facility] Start: 01-01-2024 End: 07-26-2024 Tobacco use panel [facility] National Score (1-100), lower number is lower risk Not on file [facility] Start: 2003 Sex Assigned At Not on file [facility] Start: 01-11-2024 Education 13 [facility] Start: 09-12-2024 Tobacco smoking status NHIS Ex-smoker [facility] End: 05-26-2016 History of tobacco use Current smoker [facility] NEGATED: Highlighted rowStart: TANNERF History of tobacco use Passive smoker [facility] Goals Date Patient Goal Desired Activity /State Personal health goal Functional Status Date Assessment Result Facility 03-19-2024 Functional Status Independent Alexis charis [facility] 03-19-2024 Functional Status Standard Safet y ID band on, Call device within reach, Bed in low position, Wheels locked, Upper/Half-Length side-rails up [facility] 01-16-2024 Functional Status Independent [facility] 01-16-2024 Functional Status Standard Safet y ID band on, Call device within reach, Bed in low position, Wheels locked, Upper/Half-Length side-rails up, Bedside Cart Locked, Visitor at bedside, Safety level maintained [facility] 10-25-2022 Functional Status Standard Safet y Call device within reach, Bed in low position, Wheels locked, Safety level maintained [facility] 10-25-2022 Functional Status [facility] Mental Status Date Assessment Result Facility 03-19-2024 Mental Status Orientation Oriented x 4 [facility] 03-19-2024 Mental Status [facility] 01-16-2024 Mental Status Orientation Oriented x 4 [facility] 01-16-2024 Mental Status [facility] 10-25-2022 Mental Status Orientation Oriented x 4 [facility] 07-19-2022 Cognitive function Level Of Cons ciousness Awake;Alert;Appropriate;Follow s Commands [facility] Work Phone: Clinical Notes 09-20-2016 to 10-29-2024 Oneida Mattson APRN.CNM - 10/29/2024 10:07 AM ESTPatient InstructionsOneida Mattson APRN.CNM - 10/10/2024 10:35 AM Oneida Rivers APRN.CNM - 09/12/2024 10:30 AM ESTPatient Instructions Note Date & Type Note Facility 10-29-2024 Note HNO ID: [id number] Author: ONEIDA MATTSON APRN.CNM Service: ? Author Type: Robotics Engineer Type: Progress Notes Filed: 10/29/2024 10:36 Note Text: Luzmaria is a 19 year old patient who presents for Nexplanon insertion. Patient's last menstrual period was 10/10/2024 (approximate). VITALS: BP 114/64 Wt 229 lb (103.9kg) LMP 10/10/2024 test: negative Nexplanon lot #: [id number] Exp date: 01/03/2027 [facility] [id number] UNIVERSAL PROTOCOL / SAFETY CHECKLIST Procedure to be Performed: Nexplanon Insertion Sign In: A Moment of CARE was completed. Personnel directly involved with the procedure wore the appropriate PPE (Personal Protective Equipment). Patient/Surrogate Stated/Verified: PATIENT VERIFIED(optional for EMERGENT procedures): Patient name, Date of , Relevant allergies, and The intended procedure Time Out Communication: Intended patient and procedure match the source documents. Consent documented and matches the intended procedure. Sign Out: SIGN OUT (optional for EMERGENT procedures): No specimen collected. Oneida Mattson APRN.CNM TECHNIQUE: Patient placed in supine position with left) bent at the elbow and placed over the head. Skin cleansed with betadine. 1mL of 1% lidocaine with 1:100,000 epi injected subQ along insertion site. Nexplanon cruz inserted under sterile technique. After insertion by the provider, the cruz was palpable under the skin by both patient and provider. Steristrips and sterile pressure dressing applied. AANDP: Nexplanon inserted without complications. The patient was instructed to remove the dressing after 24 hours. Advised to use backup contraception for 7 days. Oneida Mattson APRN.CNM [facility] 10-29-2024 History of Presen t illness Narrative Luzmaria is a 19 year old patient who presents for Nexplanon insertion. Patient's last menstrual period was 10/10/2024 (approximate). VITALS: BP 114/64 Wt 229 lb (103.9kg) LMP 10/10/2024 test: negative Nexplanon lot #: [id number] Exp date: 01/03/2027 [facility] [id number] UNIVERSAL PROTOCOL / SAFETY CHECKLIST Procedure to be Performed: Nexplanon Insertion Sign In: A Moment of CARE was completed. Personnel directly involved with the procedure wore the appropriate PPE (Personal Protective Equipment). Patient/Surrogate Stated/Verified: PATIENT VERIFIED(optional for EMERGENT procedures): Patient name, Date of , Relevant allergies, and The intended procedure Time Out Communication: Intended patient and procedure match the source documents. Consent documented and matches the intended procedure. Sign Out: SIGN OUT (optional for EMERGENT procedures): No specimen collected. Oneida Mattson APRN.CNM TECHNIQUE: Patient placed in supine position with left) bent at the elbow and placed over the head. Skin cleansed with betadine. 1mL of 1% lidocaine with 1:100,000 epi injected subQ along insertion site. Nexplanon cruz inserted under sterile technique. After insertion by the provider, the cruz was palpable under the skin by both patient and provider. Steristrips and sterile pressure dressing applied. A&P: Nexplanon inserted without complications. The patient was instructed to remove the dressing after 24 hours. Advised to use backup contraception for 7 days. Oneida Mattson APRN.CNM documented in this encounter [facility] 10-29-2024 Instructions Claudia Ovalles MA - 10/29/2024 10:07 AM EST NEXPLANON PATIENT EDUCATION You may remove dressing in 24 hours. Expect some bruising around insertion site. You may take over the counter pain medication (i.e. Tylenol, motrin, advil, etc) if you have discomfort. Call your provider with excessive bruising or pain. Continue to use condoms for STD prevention. You should use backup contraception for 7 days to prevent . documented in this encounter [facility] 10-10-2024 Note HNO ID: [id number] Author: ONEIDA MATTSON APRN.CNM Service: ? Author Type: Robotics Engineer Type: Progress Notes Filed: 10/10/2024 11:23 Note Text: VISIT Luzmaria Hearn is a 19 year old year old here for visit. Delivery Summary: 08/29/24 CP ROS/ Recovery: Feeding: Bottle feeding- milk allergy- special formula problems: Inadequate milk supply Menses since delivery: yes, 1 week ago Menstrual pattern prior to : Regular periods [place] since delivery: Not resumed Depression: denies symptoms of depression. OB Depression and Anxiety Screening- This Encounter (since 10/09/2024) Over the past 2 weeks have you felt down, depressed, or hopeless? Negative Over the past two weeks, have you felt little interest or pleasure in doing things?? Negative Feeling nervous, anxious or on edge 0-Not at all Not being able to stop or control worrying 0-Not al all Anxiety Pre-Screening Total (If >/= 3 additional questions will be reviewed) 0 Emotional support: Yes Bowel symptoms: Constipation and change in bowel habits Abdomen: N/A Bladder symptoms: No dysuria, gross hematuria, urinary frequency, urinary urgency, or incontinence Other issues: None Last Pap: 2022 normal HPV: negative PAST MEDICAL HISTORY Diagnosis Date Complication of anesthesia vomiting after surgery Depression History of macrosomia in infant in prior , currently 01/15/2024 PAST SURGICAL HISTORY Procedure Laterality Date LAPAROSCOPY SURG CHOLECYSTECTOMY 11/06/2014 Cholecystectomy, lap NEXPLANON INSERTION 03/27/2017 NEXPLANON REMOVAL 2020 FAMILY HISTORY Problem Relation Age of Onset Hypertension Father Stroke Father multiple Heart disease Father Hypertension Maternal Grandmother Diabetes Paternal Grandfather Prostate Cancer Paternal Grandfather Breast Cancer Maternal Aunt Psychiatry Maternal Aunt Psychiatry Maternal Aunt Seizures Maternal Aunt Psychiatry Maternal Uncle Social History Tobacco Use Smoking status: Former Current packs/day: 0.00 Types: Cigarettes Quit date: 05/26/2016 Years since quittin.3 Passive exposure: Never Smokeless tobacco: Never Vaping Use Vaping status: Never Used Substance Use Topics Alcohol use: No Drug use: No PHYSICAL EXAMINATION: SENSITIVE EXAM: The sensitive examination was discussed with the Patient or Patient's Authorized Food Packer. As applicable, any other physician, advance practice provider, medical student, or other health professional student that will be observing or involved in the sensitive examination for educational or training purposes was discussed with the Patient or Authorized Food Packer. The Patient or Authorized Food Packer has agreed to proceed with the sensitive examination. (Sensitive examination includes inspection and/or palpation of the breasts, pelvis, prostate and anorectal regions). BP 118/68 Wt 222 lb (100.7kg) LMP 10/10/2024 GENERAL: pleasant, female in no apparent distress HEENT: Normocephalic and atraumatic NECK: Supple and full range of motion DERMATOLOGY: Normal and without lesions BREAST: soft, non-tender, symmetric, no dominant mass, normal nipple-areolar complex, no lymphadenopathy, and no nipple discharge CHEST: Normal inspiratory effort ABDOMEN: soft, non-tender, and no masses. INCISION: N/A PELVIC: external genitalia normal, normal Bartholin's glands, urethra, Neal's glands, no vulvar lesions, no cervical lesions, good vaginal support, physiologic discharge present, normal appearing perineal body and perianal region BIMANUAL: uterus normal size, shape and consistency, no adnexal masses, non-tender, and no cervical motion tenderness NEURO: alert and oriented x3,exam grossly non-focal EXTREMITIES: normal ASSESSMENT AND PLAN: 19 year old status post with normal course. Contraception plan: Nexplanon- order placed Patient has used in the past Follow up: RTC for annual exams and PRN Oneida Mattson APRN.[facility] 10-10-2024 History of Presen t illness Narrative VISIT Luzmaria Hearn is a 19 year old year old here for visit. Delivery Summary: 08/29/24 CP ROS/ Recovery: Feeding: Bottle feeding- milk allergy- special formula problems: Inadequate milk supply Menses since delivery: yes, 1 week ago Menstrual pattern prior to : Regular periods [place] since delivery: Not resumed Depression: denies symptoms of depression. OB Depression and Anxiety Screening- This Encounter (since 10/09/2024) Over the past 2 weeks have you felt down, depressed, or hopeless? Negative Over the past two weeks, have you felt little interest or pleasure in doing things? Negative Feeling nervous, anxious or on edge 0-Not at all Not being able to stop or control worrying 0-Not al all Anxiety Pre-Screening Total (If >/= 3 additional questions will be reviewed) 0 Emotional support: Yes Bowel symptoms: Constipation and change in bowel habits Abdomen: N/A Bladder symptoms: No dysuria, gross hematuria, urinary frequency, urinary urgency, or incontinence Other issues: None Last Pap: 2022 normal HPV: negative PAST MEDICAL HISTORY Diagnosis Date Complication of anesthesia vomiting after surgery Depression History of macrosomia in in prior , currently 01/15/2024 PAST SURGICAL HISTORY Procedure Laterality Date LAPAROSCOPY SURG CHOLECYSTECTOMY 11/06/2014 Cholecystectomy, lap NEXPLANON INSERTION 03/27/2017 NEXPLANON REMOVAL 2020 FAMILY HISTORY Problem Relation Age of Onset Hypertension Father Stroke Father multiple Heart disease Father Hypertension Maternal Grandmother Diabetes Paternal Grandfather Prostate Cancer Paternal Grandfather Breast Cancer Maternal Aunt Psychiatry Maternal Aunt Psychiatry Maternal Aunt Seizures Maternal Aunt Psychiatry Maternal Uncle Social History Tobacco Use Smoking status: Former Current packs/day: 0.00 Types: Cigarettes Quit date: 05/26/2016 Years since quittin.3 Passive exposure: Never Smokeless tobacco: Never Vaping Use Vaping status: Never Used Substance Use Topics Alcohol use: No Drug use: No PHYSICAL EXAMINATION: SENSITIVE EXAM: The sensitive examination was discussed with the Patient or Patient's Authorized Food Packer. As applicable, any other physician, advance practice provider, medical student, or other health professional student that will be observing or involved in the sensitive examination for educational or training purposes was discussed with the Patient or Authorized Food Packer. The Patient or Authorized Food Packer has agreed to proceed with the sensitive examination. (Sensitive examination includes inspection and/or palpation of the breasts, pelvis, prostate and anorectal regions). BP 118/68 Wt 222 lb (100.7kg) LMP 10/10/2024 GENERAL: pleasant, female in no apparent distress HEENT: Normocephalic and atraumatic NECK: Supple and full range of motion DERMATOLOGY: Normal and without lesions BREAST: soft, non-tender, symmetric, no dominant mass, normal nipple-areolar complex, no lymphadenopathy, and no nipple discharge CHEST: Normal inspiratory effort ABDOMEN: soft, non-tender, and no masses. INCISION: N/A PELVIC: external genitalia normal, normal Bartholin's glands, urethra, Neal's glands, no vulvar lesions, no cervical lesions, good vaginal support, physiologic discharge present, normal appearing perineal body and perianal region BIMANUAL: uterus normal size, shape and consistency, no adnexal masses, non-tender, and no cervical motion tenderness NEURO: alert and oriented x3,exam grossly non-focal EXTREMITIES: normal ASSESSMENT AND PLAN: 19 year old status post with normal course. Contraception plan: Nexplanon- order placed Patient has used in the past Follow up: RTC for annual exams and PRN Oneida Mattson APRN.CNM documented in this encounter [facility] 09-12-2024 Note HNO ID: [id number] Author: ONEIDA MATTSON APRN.CNM Service: ? Author Type: Robotics Engineer Type: Progress Notes Filed: 09/12/2024 11:03 Note Text: EARLY VISIT Luzmaria Hearn is a 19 year old here for 2 week visit. Delivery Summary: 08/29/24 CP ROS: General: Denies any fever or chills Hypertension Screening: Headache? No. Visual Changes? No Epigastric Pain? No Increased Swelling? No Taking any BP medications at home? No If applicable, monitoring BP at home? (If Yes, include results) NA Mood: normal Depression: denies symptoms of depression. OB Depression and Anxiety Screening- This Encounter (since 09/11/2024) Over the past 2 weeks have you felt down, depressed, or hopeless? Negative Over the past two weeks, have you felt little interest or pleasure in doing things?? Negative Feeling nervous, anxious or on edge 0-Not at all Not being able to stop or control worrying 0-Not al all Anxiety Pre-Screening Total (If >/= 3 additional questions will be reviewed) 0 Feeding: Breast feeding problems: Pain with latch- pumping at times and feeding via bottle. No supplementation. Bladder: No dysuria, gross hematuria, urinary frequency, urinary urgency, or incontinence Bowel symptoms: No nausea, vomiting, or diarrhea, No heartburn or reflux symptoms, and Negative for abdominal discomfort, blood in stools or black stools Abdomen: N/A Bleeding: light flow Bottom and Perineum: No issues Sleep: no sleep concerns and sleeps in bassinet/crib in parent's room, feels rested sometimes [place] since delivery: Not resumed Emotional support: Yes Exercise: N/A Other issues: None SENSITIVE EXAM: Sensitive exam not performed. PHYSICAL EXAMINATION: Wt 93.9 kg (207 lb) LMP 11/18/2023 (Approximate) Yes BMI 33.67 kg/m? General: pleasant,female in no apparent distress, AANDO x 3. Skin warm and intact. Breast: Deferred Abdomen: Deferred /Incision: N/A Pelvic: Deferred Bimanual: Deferred ASSESSMENT AND PLAN: 19 year old status post with normal course. Contraception plan: condoms . Reinforced 6-week pelvic rest. Encouraged condom usage should patient deviate. Referral to outpatient department for assessment Follow up: Return to Clinic for 6 week visit and as needed Oneida Mattson APRN.CNM [facility] 09-12-2024 History of Presen t illness Narrative EARLY VISIT Luzmaria Hearn is a 19 year old here for 2 week visit. Delivery Summary: 08/29/24 CP ROS: General: Denies any fever or chills Hypertension Screening: Headache? No. Visual Changes? No Epigastric Pain? No Increased Swelling? No Taking any BP medications at home? No If applicable, monitoring BP at home? (If Yes, include results) NA Mood: normal Depression: denies symptoms of depression. OB Depression and Anxiety Screening- This Encounter (since 09/11/2024) Over the past 2 weeks have you felt down, depressed, or hopeless? Negative Over the past two weeks, have you felt little interest or pleasure in doing things? Negative Feeling nervous, anxious or on edge 0-Not at all Not being able to stop or control worrying 0-Not al all Anxiety Pre-Screening Total (If >/= 3 additional questions will be reviewed) 0 Feeding: Breast feeding problems: Pain with latch- pumping at times and feeding via bottle. No supplementation. Bladder: No dysuria, gross hematuria, urinary frequency, urinary urgency, or incontinence Bowel symptoms: No nausea, vomiting, or diarrhea, No heartburn or reflux symptoms, and Negative for abdominal discomfort, blood in stools or black stools Abdomen: N/A Bleeding: light flow Bottom and Perineum: No issues Sleep: no sleep concerns and sleeps in bassinet/crib in parent's room, feels rested sometimes [place] since delivery: Not resumed Emotional support: Yes Exercise: N/A Other issues: None SENSITIVE EXAM: Sensitive exam not performed. PHYSICAL EXAMINATION: Wt 93.9 kg (207 lb) LMP 11/18/2023 (Approximate) Yes BMI 33.67 kg/m General: pleasant,female in no apparent distress, A&O x 3. Skin warm and intact. Breast: Deferred Abdomen: Deferred /Incision: N/A Pelvic: Deferred Bimanual: Deferred ASSESSMENT AND PLAN: 19 year old status post with normal course. Contraception plan: condoms . Reinforced 6-week pelvic rest. Encouraged condom usage should patient deviate. Referral to outpatient department for assessment Follow up: Return to Clinic for 6 week visit and as needed Oneida Mattson APRN.CNM documented in this encounter [facility] 08-30-2024 Note HNO ID: [id number] Author: CIELO LEIGH RN Service: ? Author Type: Registered Nurse Type: Progress Notes Filed: 08/30/2024 09:55 Note Text: Patient delivered via at [facility] on 08/29/24 per Oneida Mattson CNM. See OB Outcome note. Cielo Leigh RN [facility] 08-30-2024 History of Presen t illness Narrative Patient delivered via at [facility] on 08/29/24 per Oneida Mattson CNM. See OB Outcome note. Cielo Leigh RN documented in this encounter [facility] 08-30-2024 Note [facility] Medical Records Department [address] [place] [address] Discharge Summary 08/30/24 0722 MR#: [id number] Acct: [id number] Name: LUZMARIA HEARN Rep #: [id number] : 2005 19 From: Oneida Mattson CNM PCP: Care Physician,No Primary Status:ADM IN Location: [id number] Providers Date of Admission: 08/29/24 Primary Care Physician: No Primary Care Phys Reason For Visit: VAGINAL DELIVERY Diagnosis Discharge Diagnosis (1) (spontaneous vaginal delivery): Status: Acute Code(s): O80 - Encounter for full-term uncomplicated delivery (2) Depression: Status: Acute Code(s): F32.A - Depression, unspecified (3) Care and examination of lactating mother: Status: Acute Code(s): Z39.1 - Encounter for care and examination of lactating mother Medications at Discharge Home Medications vit no.95-ferrous fumarate 28 mg-folic acid 800 mcg tablet () 1 tab PO DAILY 08/25/24 acetaminophen 500 mg tablet 1,000 mg (2 x 500 mg) PO Q6H PRN PRN Pain 1-10 Or Fever #0 tabs 08/30/24 Hospital Course Operations None Procedures None Summary of Care Provided Minutes Spent on Discharge: 15 Hospital Course: Patient had vaginal delivery. Hospital course was uneventful. Physical Exam Narrative Patient seen at bedside. Denies pain. Ambulating and voiding without difficulty. Lochia decreased. Desires discharge home today. Breast feeding and supplementing with formula. Const alert and oriented x3 General Appearance: Negative for in distress HEENT normocephalic Eyes General Eye: normal appearance of both eyes Neck General: normal visual inspection Chest Chest: symmetrical chest wall rise Resp normal respiratory effort and normal air movement Effort and Inspection: symmetric chest movement; Negative for tachypneic Auscultation: clear to auscultation bilaterally Cardio regular rate and regular rhythm Peripheral Pulses: pulses 2+ throughout GI normal to inspection, nondistended, normoactive bowel sounds Narrative: Ice to perineum OB / External Speculum: vaginal bleeding and other Lochia decreasing Uterus Palpation: uterus fundus firm (Below U) Extremity normal to inspection, full ROM and normal capillary refill Skin no rashes or lesions noted Neuro oriented x3, CN's II-XII intact bilaterally and gait normal Psych mental status grossly normal, thought process normal and activity/motor behavior normal Weight / BMI Weight Weight: 231 lb 3.2 oz Body Mass Index (BMI) 37.3 ABG / Lab / Microbiology Data 08/29/24 05:15 08/29/24 05:15 Laboratory: Laboratory Results - last 24 hr 08/29/24 05:15: Creatinine 0.66, Estim Creat Clear Calc 165.03, Est GFR (MDRD) Af Amer 145, Est GFR (MDRD) Non-Af 120, Uric Acid 3.4, AST 10 L, ALT 16, Blood Type A POSITIVE D/C Instructions Discharge Diet: No restrictions Discharge Activity: Return to Normal Activity, No Restrictions, May Drive, May Shower and May Take a Tub Bath (Warm water only. No bath salts, soaps, bubbles) May resume sexual activity in: 6-8 weeks Weight Bearing Status: Weight bearing as tolerated Call your doctor if you observe: Fever of 101 or Higher, Inability to urinate, Using more than 1 pad per hour, Shortness of breath, Dizziness, Chest pain, Calf discomfort and Uncontrolled pain Please Follow Up With: [facility] When: 2 weeks in office or virtual Meaningful Use Info Meaningful Use Meaningful Use Diagnoses (Choose all that apply): None applicable Ischemic Stroke Statin Dosing Therapy Reference: STATIN DOSE THERAPY REFERENCE: * Patients > 75 years receive moderate or high dose statin therapy. * Patients 75 years or YOUNGER should receive HIGH intensity statin dose unless contraindicated. You will be required to document reason for non-treatment if statin daily dose does not meet guidelines. HIGH DOSE STATIN THERAPY DAILY Atorvastatin > than or = to 40 mg Rosuvastatin > than or = to 20 mg Amlodipine + Atorvastatin > than or = to 2.5/40 mg Ezetimibe + Simvastatin 10/80 mg Simvastatin 80mg Discharge Plan Admission Admit Date/Time: 08/29/24 04:45 Primary Reason for Your Visit: Labor and Delivery Attending Provider: Oneida Mattson Primary Care Provider: Care Physician,No Primary Discharge Orders/Prescriptions Prescriptions: New acetaminophen 500 mg Tablet 1,000 mg PO Q6H PRN PRN (Reason: Pain 1-10 Or Fever) Qty: 0 0RF Continued PNV [id number]-ferrous fumarate-FA [] 28 mg iron- 800 mcg tablet 1 tab PO DAILY Discontinued promethazine [Promethegan] 25 mg suppository 25 mg RECTAL Q6H PRN PRN (Reason: Nausea) Qty: 15 0RF ondansetron 4 mg tablet,disintegrating 4 mg PO Q6H PRN PRN (Reason: Nausea) Qty: 20 0RF pantoprazole [Protonix] 40 m (more content not included)... [facility] 08-29-2024 Telephone encounter Note Order signed and faxed. Angela George RN [facility] 08-29-2024 Miscellaneous Notes Order signed and faxed. Angela George RN Breast pump order received from [address] Order to CP to sign. Angela Goerge, RN documented in this encounter [facility] 08-28-2024 Note HNO ID: [id number] Author: VALENTINA YO MD Service: ? Author Type: Physician Type: Progress Notes Filed: 08/28/2024 11:19 Note Text: NST SUMMARY PROVIDER ASSESSMENT AND INTERPRETATION Indications for NST: Obesity Baseline: 130 Variability: Moderate Accelerations: Present 15 X 15 Decelerations: None Interpretation: Category I SIGNATURE: Valentina Yo MD [facility] 08-28-2024 History of Presen t illness Narrative NST SUMMARY PROVIDER ASSESSMENT AND INTERPRETATION Indications for NST: Obesity Baseline: 130 Variability: Moderate Accelerations: Present 15 X 15 Decelerations: None Interpretation: Category I SIGNATURE: Valentina Yo MD documented in this encounter [facility] 08-28-2024 Progress note Formatting of t his [...] URINE OB DIP B/O Valentina Yo MD [facility] 08-28-2024 Miscellaneous Notes S: Luzmaria Hearn is [...] Valentina Yo MD documented in this encounter [facility] 08-28-2024 Instructions Isha Lucio MA - 08/28/2024 10:31 AM EDT SEQUENTIAL SCREENINGS The [facility] offers sequential screenings for women who are [...] It will require an appointment with our veterinary assistant technician. This is not an ultrasound performed [...] the above symptoms, contact our office at [phone] and ask to speak with a nurse. After hours, you can call doctors registry at [phone] OR call [facility] at [phone] and ask to have the doctor bundler seasonal greenery paged. If you consider this an emergency, dial 9--1 or go to your nearest emergency department. NEED HELP? Are you dealing with a violent or abusive relationship? Are you a victim of rape or sexual assult? Call [facility] ([place]) 24 hour Crisis Hotline: 257.557.7470 or 003-089-1117. MANUAL Your Guide to a Healthy manual is now on-line. Visit [email or web address] to download your free copy documented in this encounter [facility] 08-26-2024 Note HNO ID: [id number] Author: JACKIE CANDELARIA APRN.CNM Service: ? Author Type: Robotics Engineer Type: Progress Notes Filed: 08/26/2024 15:55 Note [...] None Interpretation: Reactive SIGNATURE: Jackie Candelaria APRN.CNM [facility] 08-26-2024 Progress note Formatting of t his note might be different from the original. NEENA-Decreased movement. NST reactive. IOL tomorrow at 0700. Jackie Candelaria APRN.CNM [facility] 08-26-2024 History of Presen t illness Narrative [...] Jackie Candelaria APRN.CNM documented in this encounter [facility] 08-26-2024 Miscellaneous Notes NEENA-Decreased movement. NST reactive. IOL tomorrow at 0700. Jackie Candelaria APRN.CNM documented in this encounter [facility] 08-26-2024 Perry Santiago MA - 08/26/2024 2:29 PM EDT SEQUENTIAL SCREENINGS The [facility] offers sequential screenings for women who are [...] It will require an appointment with our veterinary assistant technician. This is not an ultrasound performed [...] the above symptoms, contact our office at [phone] and ask to speak with a nurse. After hours, you can call doctors registry at [phone] OR call [facility] at [phone] and ask to have the doctor bundler seasonal greenery paged. If you consider this an emergency, dial 9--6 or go to your nearest emergency department. NEED HELP? Are you dealing with a violent or abusive relationship? Are you a victim of rape or sexual assult? Call [facility] ([place]) 24 hour Crisis Hotline: 102.977.2013 or 143-464-1382. MANUAL Your Guide to a Healthy manual is now on-line. Visit [email or web address] to download your free copy documented in this encounter [facility] 08-26-2024 Telephone encounter Note 2 more bloody shows since last call-last one looked like mucous plug Not cramping as much Contractions [id number], lasting 30-60 seconds long. Not as intense as last night Not getting 6-10 kick counts in one hr period, but is moving From 11am to now, Pt has only felt 2 or 3 times, not really kicking or being active. Per NEENA, okay to schedule Pt now for NST. Appt scheduled. Pt states she will be here in 5-10 minutes. Sparkle Estrada RN [facility] 08-26-2024 Miscellaneous Notes 2 more bloody shows since last call-last one looked like mucous plug Not cramping as much Contractions n00eeylsvs, lasting 30-60 seconds long. Not as intense as last night Not getting 6-10 kick counts in one hr period, but is moving From 11am to now, Pt has only felt 2 or 3 times, not really kicking or being active. Per NEENA, okay to schedule Pt now for NST. Appt scheduled. Pt states she will be here in 5-10 minutes. Sparkle Estrada, SAFIA Please have patient schedule appt for 40w2d [...] Angela George RN documented in this encounter [facility] 08-26-2024 Telephone encounter Note Please have patient schedule appt for [facility] 08-26-2024 Telephone encounter Note 40w2d Calling c/o [...] all weekend because L&D was busy. Angela Georeg RN [facility] 08-26-2024 Telephone encounter Note 1st and final risk assessment form submitted 08/26/2024. Valentina Weinstein RN [facility] 08-26-2024 Miscellaneous Notes 1st and final risk assessment form submitted 08/26/2024. Valentina Weinstein RN documented in this encounter [facility] 08-23-2024 Telephone encounter Note Breast pump order received from [address]. Order to to sign. Angela George RN [facility] 08-23-2024 Telephone encounter Note Patient called in and appointment scheduled for next week. Angela George RN [facility] 08-23-2024 Miscellaneous Notes Patient called in and appointment scheduled for next week. Angela George RN See today's phone note. Patient had called in to the office. Valentina Falcon RN documented in this encounter [facility] 08-23-2024 Telephone encounter Note My chart message sent to pt [facility] Work Phone: 08-23-2024 Miscellaneous Notes My chart message sent to pt Patient sent a Mychart message after calling in to the office with more questions. Valentina Falcon RN 39w6d Patient was scheduled this AM for an induction, but L&D is too full at this time. Patient was told to call the office about rescheduling. Valentina Falcon RN documented in this encounter [facility] 08-23-2024 Telephone encounter Note Patient sent a Mychart message after calling in to the office with more questions. Valentina Falcon RN [facility] 08-23-2024 Telephone encounter Note See today's phone note. Patient had called in to the office. Valentina Falcon RN [facility] 08-23-2024 Telephone encounter Note 39w6d Patient was scheduled this AM for an induction, but L&D is too full at this time. Patient was told to call the office about rescheduling. Valentina Falcon RN [facility] 08-22-2024 Note HNO ID: [id number] Author: NALLELY ROMERO MD Service: ? Author [...] Irregular Interpretation: Reactive SIGNATURE: Nallely Romero MD [facility] 08-22-2024 History of Presen t illness [...] Nallely Romero MD documented in this encounter [facility] 08-22-2024 Progress note Formatting of t his [...] reviewed, Kick counts reviewed. Nallely Romero MD [facility] 08-22-2024 Miscellaneous Notes KJ - Patient seen [...] Nallely Romero MD documented in this encounter [facility] 08-22-2024 Instructions Claudia Ovalles MA - 08/22/2024 3:00 PM EDT SEQUENTIAL SCREENINGS The [facility] offers sequential screenings for women who are [...] It will require an appointment with our veterinary assistant technician. This is not an ultrasound performed [...] the above symptoms, contact our office at [phone] and ask to speak with a nurse. After hours, you can call doctors registry at [phone] OR call [facility] at [phone] and ask to have the doctor bundler seasonal greenery paged. If you consider this an emergency, dial or go to your nearest emergency department. NEED HELP? Are you dealing with a violent or abusive relationship? Are you a victim of rape or sexual assult? Call [facility] ([place]) 24 hour Crisis Hotline: 620.298.7023 or 096-177-7352. MANUAL Your Guide to a Healthy manual is now on-line. Visit [email or web address] to download your free copy documented in this encounter [facility] 08-16-2024 Note HNO ID: [id number] Author: JACKIE CANDELARIA APRN.CNM Service: ? Author Type: Robotics Engineer Type: Progress Notes Filed: 08/16/2024 14:24 Note Text: NST SUMMARY PROVIDER ASSESSMENT AND INTERPRETATION Luzmaria Hearn is a 19 year old female, , who is at 38w6d with an JOSE J of 08/24/2024, by Last Menstrual Period dating method. Indications for NST: Obesity Baseline: 155 Variability: Moderate Accelerations: Present 15 X 15 Decelerations: None Contractions: TOCO: None Interpretation: Reactive SIGNATURE: Jackie Candelaria APRN.CNM [facility] 08-16-2024 History of Presen t illness [...] Jackie Candelaria APRN.CNM documented in this encounter [facility] 08-16-2024 Progress note Formatting of t his [...] RTO in 1 week Jackie Candelaria APRN.CNM [facility] 08-16-2024 Miscellaneous Notes NEENA-S: Luzmaria Hearn is a [...] Jackie Candelaria APRN.CNM documented in this encounter [facility] 08-16-2024 Perry Santiago MA - 08/16/2024 10:34 AM EDT SEQUENTIAL SCREENINGS The [facility] offers sequential screenings for women who are [...] It will require an appointment with our veterinary assistant technician. This is not an ultrasound performed [...] the above symptoms, contact our office at [phone] and ask to speak with a nurse. After hours, you can call doctors registry at [phone] OR call [facility] at [phone] and ask to have the doctor bundler seasonal greenery paged. If you consider this an emergency, dial 3-6-4 or go to your nearest emergency department. NEED HELP? Are you dealing with a violent or abusive relationship? Are you a victim of rape or sexual assult? Call [facility] ([place]) 24 hour Crisis Hotline: 255.792.3691 or 238-668-6925. MANUAL Your Guide to a Healthy manual is now on-line. Visit [email or web address] to download your free copy documented in this encounter [facility] 08-09-2024 Note HNO ID: [id number] Author: VALENTINA YO MD Service: ? Author Type: Physician Type: Progress Notes Filed: 08/09/2024 12:56 Note Text: NST SUMMARY PROVIDER ASSESSMENT AND INTERPRETATION Indications for NST: Obesity Baseline: 135 Variability: Moderate Accelerations: Present 15 X 15 Decelerations: None Interpretation: Category I SIGNATURE: Valentina Yo MD [facility] 08-09-2024 Progress note Formatting of t [...] 649.13, ICD10: O99.213 NSts Valentina Yo MD [facility] 08-09-2024 History of Presen t illness Narrative NST SUMMARY PROVIDER ASSESSMENT AND INTERPRETATION Indications for NST: Obesity Baseline: 135 Variability: Moderate Accelerations: Present 15 X 15 Decelerations: None Interpretation: Category I SIGNATURE: Valentina Yo MD documented in this encounter [facility] 08-09-2024 Miscellaneous Notes S: Luzmaria Hearn is [...] Valentina Yo MD documented in this encounter [facility] 08-09-2024 Instructions Catherine Thompson MA - 08/09/2024 9:48 AM EDT SEQUENTIAL SCREENINGS The [facility] offers sequential screenings for women who are [...] It will require an appointment with our veterinary assistant technician. This is not an ultrasound performed [...] the above symptoms, contact our office at [phone] and ask to speak with a nurse. After hours, you can call doctors registry at [phone] OR call [facility] at [phone] and ask to have the doctor bundler seasonal greenery paged. If you consider this an emergency, dial 07-07- or go to your nearest emergency department. NEED HELP? Are you dealing with a violent or abusive relationship? Are you a victim of rape or sexual assult? Call [facility] ([place]) 24 hour Crisis Hotline: 447.829.1683 or 049-557-8433. MANUAL Your Guide to a Healthy manual is now on-line. Visit [email or web address] to download your free copy documented in this encounter [facility] 08-02-2024 Note HNO ID: [id number] Author: ONEIDA MATTSON APRN.CNM Service: ? Author Type: Robotics Engineer Type: Progress Notes Filed: 08/02/2024 11:22 Note Text: NST SUMMARY PROVIDER ASSESSMENT AND INTERPRETATION Luzmaria Hearn is a 19 year old female, , who is at 36w6d with an JOSE J of 08/24/2024, by Last Menstrual Period dating method. Indications for NST: Obesity Baseline: 140 Variability: Moderate Accelerations: Present 15 X 15 Decelerations: None Contractions: TOCO: None Interpretation: Reactive SIGNATURE: Oneida Mattson APRN.CNM [facility] 08-02-2024 History of Presen t illness [...] Oneida Mattson APRN.CNM documented in this encounter [facility] 08-02-2024 Progress note Formatting of t his [...] call office - RTO 1 week for PATELT / ALISE Mattson APRN.CNM T [facility] 08-02-2024 Miscellaneous Notes S: Luzmaria Hearn is a [...] week for NST / ALISE Mattson APRN.CNM documented in this encounter [facility] 08-02-2024 Instructions Perry Arana MA - 08/02/2024 10:18 AM EDT SEQUENTIAL SCREENINGS The [facility] offers sequential screenings for women who are [...] It will require an appointment with our veterinary assistant technician. This is not an ultrasound performed [...] the above symptoms, contact our office at [phone] and ask to speak with a nurse. After hours, you can call doctors registry at [phone] OR call [facility] at [phone] and ask to have the doctor bundler seasonal greenery paged. If you consider this an emergency, dial 9-1- or go to your nearest emergency department. NEED HELP? Are you dealing with a violent or abusive relationship? Are you a victim of rape or sexual assult? Call [facility] ([facility] 24 hour Crisis Hotline: 310.701.2114 or 687-750-5482. MANUAL Your Guide to a Healthy manual is now on-line. Visit [email or web address] to download your free copy documented in this encounter [facility] 07-29-2024 Note Indication Evaluation of growth; Maternal [...] 0 oz EFW by: Hadlock (HC-AC-FL) Extended Associate Programmer Analyst 9.2 mm Extremities / Bony Struc [place] [...] Performed By: Luzmaria Medellin. RDMS Read By: Kwmae Rosas M.D. [facility] 07-26-2024 Progress note [...] reviewed and when to call 2) RTO T [facility] 07-26-2024 Miscellaneous Notes S: Luzmaria Hearn is [...] call 2) RTO documented in this encounter [facility] 07-26-2024 Instructions Claudia Ovalles MA - 07/26/2024 9:56 AM EDT SEQUENTIAL SCREENINGS The [facility] offers sequential screenings for women who are [...] It will require an appointment with our veterinary assistant technician. This is not an ultrasound performed [...] the above symptoms, contact our office at [phone] and ask to speak with a nurse. After hours, you can call doctors registry at [phone] OR call [facility] at [phone] and ask to have the doctor bundler seasonal greenery paged. If you consider this an emergency, dial 9-8-0 or go to your nearest emergency department. NEED HELP? Are you dealing with a violent or abusive relationship? Are you a victim of rape or sexual assult? Call [facility] 24 hour Crisis Hotline: 546.565.3480 or 100-164-2452. MANUAL Your Guide to a Healthy manual is now on-line. Visit [email or web address] to download your free copy documented in this encounter [facility] 07-16-2024 Note HNO ID: [id number] Author: VALENTINA YO MD Service: ? Author Type: Physician Type: Progress Notes Filed: 07/16/2024 12:50 Note Text: NST SUMMARY PROVIDER ASSESSMENT AND INTERPRETATION Indications for NST: Other: tachycardia Baseline: 140 Variability: Moderate Accelerations: Present 15 X 15 Decelerations: None Interpretation: Category I SIGNATURE: Valentina Yo MD [facility] 07-16-2024 History of Presen t illness Narrative NST SUMMARY PROVIDER ASSESSMENT AND INTERPRETATION Indications for NST: Other: tachycardia Baseline: 140 Variability: Moderate Accelerations: Present 15 X 15 Decelerations: None Interpretation: Category I SIGNATURE: Valentina Yo MD documented in this encounter [facility] 07-16-2024 Progress note Formatting of t his [...] Reactive NST FHR 145 Valentina Yo MD [facility] 07-16-2024 Miscellaneous Notes S: Luzmaria Hearn is [...] Valentina Yo MD documented in this encounter [facility] 07-16-2024 Instructions Tere Sanchez LPN - 07/16/2024 11:15 AM EDT SEQUENTIAL SCREENINGS The [facility] offers sequential screenings for women who are [...] It will require an appointment with our veterinary assistant technician. This is not an ultrasound performed [...] the above symptoms, contact our office at [phone] and ask to speak with a nurse. After hours, you can call doctors registry at [phone] OR call [facility] at [phone] and ask to have the doctor bundler seasonal greenery paged. If you consider this an emergency, dial 9--1 or go to your nearest emergency department. NEED HELP? Are you dealing with a violent or abusive relationship? Are you a victim of rape or sexual assult? Call [facility] ([place]) 24 hour Crisis Hotline: 842.487.7670 or 886-792-1298. MANUAL Your Guide to a Healthy manual is now on-line. Visit [email or web address] to download your free copy documented in this encounter [facility] 07-05-2024 Telephone encounter Note Patient notified of results, verbalizes understanding of instructions. Cielo Leigh RN [facility] 07-05-2024 Miscellaneous Notes Patient notified of results, verbalizes understanding of instructions. Cielo Leigh RN Reviewed. Rx sent for Ampicillin 500 mg PO every 6 hours x 5 days.. Please notify patient. Oneida Mattson APRN.CNM Scan on 07/05/2024 9:07 AM by Provider, Claudio, HELEN: Urine Lab faxed records from Pt seen [...] Jackie Candelaria APRN.CNM documented in this encounter [facility] 07-05-2024 Telephone encounter Note Reviewed. Rx sent for Ampicillin 500 mg PO every 6 hours x 5 days.. Please notify patient. Oneida Mattson APRN.CNM [facility] 07-05-2024 Telephone encounter Note Scan on 07/05/2024 9:07 AM by Provider, HELEN Snyder: Urine [facility] 07-03-2024 Telephone encounter Note Lab faxed records from Pt seen in L&D on 07/01/24. Urine sensitivity still pending at this time. Please keep phone note open for follow-up. Sparkle Estrada RN [facility] 07-03-2024 Telephone encounter Note Lab called and states will fax results. Sparkle Estrada RN [facility] 07-03-2024 Telephone encounter Note Patient seen in L&D on 06/28/24. Urine culture returned positive but no sensitivity yet. Can you please follow up with provider after results for treatment due to symptoms and colony count. Jackie Candelaria APRN.CNM [facility] 06-28-2024 Note Indication Evaluation of growth Maternal [...] 4 oz EFW by: Hadlock (HC-AC-FL) Extended Associate Programmer Analyst 7.0 mm Extremities / Bony Struc [place] [...] ICD10: Z23 Tdap today Valentina Yo MD [facility] 06-28-2024 Miscellaneous Notes S: Luzmaria Hearn is [...] Valentina Yo MD documented in this encounter [facility] 06-28-2024 Note HNO ID: [id number] Author: DOMINIQUE LAU MA Service: ? Author Type: Alto Singer Type: Progress Notes Filed: 06/28/2024 10:43 Note [...] severely ill: Yes Patient denies history of Guillain-[place] Syndrome (a severe paralytic illness): Yes Tdap Adacel injection was given without incident. See immunizations for details of immunizations administered today. VIS sheet provided: Yes Provider Dr Yo was present in office at time of injection. Dominique Lau MA [facility] 06-28-2024 History of Presen t illness [...] severely ill: Yes Patient denies history of Guillain-[place] Syndrome (a severe paralytic illness): Yes Tdap Adacel injection was given without incident. See immunizations for details of immunizations administered today. VIS sheet provided: Yes Provider Dr Yo was present in office at time of injection. Dominique Lau MA documented in this encounter [facility] 06-28-2024 Instructions Dominique Lau MA - 06/28/2024 10:01 AM EDT SEQUENTIAL SCREENINGS The [facility] offers sequential screenings for women who are [...] It will require an appointment with our veterinary assistant technician. This is not an ultrasound performed [...] the above symptoms, contact our office at [phone] and ask to speak with a nurse. After hours, you can call doctors registry at [phone] OR call [facility] at [phone] and ask to have the doctor bundler seasonal greenery paged. If you consider this an emergency, dial 1-8-3 or go to your nearest emergency department. NEED HELP? Are you dealing with a violent or abusive relationship? Are you a victim of rape or sexual assult? Call [facility] ([place]) 24 hour Crisis Hotline: 750.722.9129 or 384-929-3660. MANUAL Your Guide to a Healthy manual is now on-line. Visit [email or web address] to download your free copy documented in this encounter [facility] 06-14-2024 Progress note Formatting of t his [...] ICD10: O99.213 NSTs planned Valentina Yo MD [facility] 06-14-2024 Miscellaneous Notes S: Luzmaria Hearn is [...] Valentina Yo MD documented in this encounter [facility] 06-14-2024 Instructions Isha Lucio MA - 06/14/2024 9:20 AM EDT SEQUENTIAL SCREENINGS The [facility] offers sequential screenings for women who are [...] It will require an appointment with our veterinary assistant technician. This is not an ultrasound performed [...] the above symptoms, contact our office at [phone] and ask to speak with a nurse. After hours, you can call doctors registry at [phone] OR call [facility] at [phone] and ask to have the doctor bundler seasonal greenery paged. If you consider this an emergency, dial 9-1-5 or go to your nearest emergency department. NEED HELP? Are you dealing with a violent or abusive relationship? Are you a victim of rape or sexual assult? Call [facility] ([place]) 24 hour Crisis Hotline: 145.202.6238 or 023-743-3574. MANUAL Your Guide to a Healthy manual is now on-line. Visit [email or web address] Maximus to download your free copy documented in this encounter [facility] 05-31-2024 Miscellaneous Notes EH - S: Luzmaria [...] weeks or sooner as needed. Evie Montes APRN.TRIAGE REGISTERED NURSE documented in this encounter [facility] 05-31-2024 Progress note Formatting of t his [...] weeks or sooner as needed. Evie Montes APRN.TRIAGE REGISTERED NURSE [facility] 05-31-2024 Instructions Frances Harper LPN - 05/31/2024 8:45 AM EDT SEQUENTIAL SCREENINGS The [facility] offers sequential screenings for women who are [...] It will require an appointment with our veterinary assistant technician. This is not an ultrasound performed [...] the above symptoms, contact our office at [phone] and ask to speak with a nurse. After hours, you can call doctors registry at [phone] OR call [facility] at [phone] and ask to have the doctor bundler seasonal greenery paged. If you consider this an emergency, dial 2-7-7 or go to your nearest emergency department. NEED HELP? Are you dealing with a violent or abusive relationship? Are you a victim of rape or sexual assult? Call [facility] ([place]) 24 hour Crisis Hotline: 671.564.7396 or 968-285-8145. MANUAL Your Guide to a Healthy manual is now on-line. Visit [email or web address] Maximus to download your free copy documented in this encounter [facility] 05-03-2024 Progress note Formatting of t his [...] improvement to notify office. Jackie Candelaria APRN.CNM [facility] 05-03-2024 Miscellaneous Notes JAIRS: Luzmaria Hearn is a [...] in size. 7. History of macrosomia in infant in prior , currently 8. Nausea/vomiting in -Compazine PRN 9. Heartburn during in second trimester -Continue Pepcid 10. Irritant dermatitis -Reviewed hygiene measures -Kenalog ointment BID for 14 days. If no improvement to notify office. Jackie Candelaria APRN.CNM documented in this encounter [facility] 05-03-2024 Instructions Isha Lucio MA - 05/03/2024 9:35 AM EDT SEQUENTIAL SCREENINGS The [facility] offers sequential screenings for women who are [...] It will require an appointment with our veterinary assistant technician. This is not an ultrasound performed [...] the above symptoms, contact our office at [phone] and ask to speak with a nurse. After hours, you can call doctors registry at [phone] OR call [facility] at [phone] and ask to have the doctor bundler seasonal greenery paged. If you consider this an emergency, dial 9-1-9 or go to your nearest emergency department. NEED HELP? Are you dealing with a violent or abusive relationship? Are you a victim of rape or sexual assult? Call [facility] ([place]) 24 hour Crisis Hotline: 418.683.1881 or 222-822-2274. MANUAL Your Guide to a Healthy manual is now on-line. Visit [email or web address] Maximus to download your free copy documented in this encounter [facility] 04-16-2024 Note HNO ID: [id number] Author: SANAZ KAISER PA Service: ? Author Type: Physician Boot And Shoe Laborer Type: Progress Notes Filed: 04/16/2024 19:07 Note Text: This note was created using NoteWriter. Subjective Luzmaria Hearn is a 19 year [...] she was also given a list of nlpc-otu-gooupod safe medications for URI symptoms. 2. Sore [...] were discussed and (more content not included)... [facility] 04-16-2024 History of Presen t illness Narrative This note was created using NoteWriter. Subjective Luzmaria Hearn is a 19 year [...] she was also given a list of pnik-xlc-bfruqem safe medications for URI symptoms. 2. Sore [...] evaluation. BO Murray documented in this encounter [facility] 04-09-2024 Telephone encounter Note I called patient because she did not do AFP that was ordered at last visit. Pt has upcoming appointment 04/11 in [place] for ultrasound. She is made aware she can do it at the lab at [place]. Discussed time limitations of testing [facility] 04-09-2024 Miscellaneous Notes I called patient because she did not do AFP that was ordered at last visit. Pt has upcoming appointment 04/11 in [place] for ultrasound. She is made aware she can do it at the lab at [place]. Discussed time limitations of testing documented in this encounter [facility] 03-29-2024 Progress note Formatting of t his [...] trimester retreat for chlamydia Jocelynn Araiza M.D. [facility] 03-29-2024 Miscellaneous Notes RR- VB No. LOF [...] Jocelynn Araiza M.D. documented in this encounter [facility] 03-21-2024 Note . MICRO - Microbiology PROCEDURE: [...] Locations *1: This test was performed at: [facility], [address] [place] [address], [facility] , [facility] ([place]) 03-19-2024 Hospital Discharg e instructions Patient Education [...] swelling in the outer vaginal area (labia) [id number] The [employer]. [address] [place] [address]. All rights reserved. This information is not intended as a substitute for professional medical care. Always follow your healthcare professional's instructions. Follow Up Care 03/19/2024 14:05:53 With:Follow up with your OBGYN as scheduled tomorrow Address:Unknown When:2-4 days With:Go to emergency room if symptoms worsen Address:Unknown When:2-4 days With:DUSTY GALEANO MD Address: [address] [place] [address]- When:5 to 7 days [facility] 03-19-2024 Note Discharge Instructions Thank you for allowing [facility] to assist you with your healthcare needs. [...] 5 to 7 days Where: [address] [place], [place] [id number]- Allergies NKA Medications Please ask your primary [...] may report side effects to FDA at [phone]. What other drugs will affect cephalexin? Tell your doctor about all your other medicines, especially: metformin; or probenecid. This list is not complete. Other drugs may affect cephalexin, including prescription and dyoc-tpf-uanfpjf medicines, vitamins, and herbal products. Not all [...] to ensure that the information provided by [employer]. ('[employer]') is accurate, up-to-date, and complete, but no guarantee is made to that effect. Drug information contained herein may be time sensitive. Modality information has been compiled for use by healthcare practitioners and consumers in the [place] and therefore Mod[employer] does not warrant that uses outside of the [place] are appropriate, unless specifically indicated otherwise. [employer] drug information does not endorse drugs, diagnose patients or recommend therapy. [employer] drug information is an informational resource designed [...] effective or appropriate for any given patient. [employer] does not assume any responsibility for any aspect of healthcare administered with the aid of information Mod[employer] provides. The information contained herein is not intended to cover all possible uses, directions, precautions, warnings, drug interactions, allergic reactions, or adverse effects. If you have questions about the drugs you are taking, check with your doctor, nurse or pharmacist. Copyright 3343-4126 [employer]. Version: 12.. Revision Date: 06/07/2023. Education Materials Bladder Infection, [...] swelling in the outer vaginal area (labia) [phone] The [employer]. [address] [place] [address], [place] [address]. All rights reserved. This information is not intended as a substitute for professional medical care. Always follow your healthcare professional's instructions. Additional Information VACCINATE! IT SAVES LIVES! Members of the community who have not yet received the COVID-19 vaccine and would like to receive it can visit one of [facility] vaccine clinics. There are many vaccine clinic locations within the [facility]. For locations and available times, please visit www.gettheshot.[email or web address].[place] .gov/. It is important to note that some COVID mobile vaccine clinics are held outdoors and may be canceled in rainy or stormy conditions. To learn more about pediatric vaccinations (ages 5-11), we invite you to visit the [facility] webpage. https://www.akron[facility]ress.org/ pages/5222-Ewqsv-Tjacsjatwoo-Fr bsindoip-Hieig-Uelcwacee.html To learn more about the COVID-19 vaccine, we invite you to visit the CDC website for a list of frequently asked questions. https://www.cdc.gov/coronavirus /2019-ncov/vaccines/faq.html [email or web address] Patient Portal Access Instructions: Stay connected with your healthcare team and access your personal medical information anytime with the [email or web address] Patient Portal. If you would like a full copy of your medical records please contact the [facility] Medical Records Department Monday through Monday between 8a.m. and 4:30p.m. Please follow the directions below to access the portal: 1.Access the email account you provided upon registration to the hospital.2.Look for an invitation email from [facility].3.Open the email and access the invitation link: Accept Invitation to [email or web address].Fill in the required donahue to create your account. Sign into [email or web address] with your username and password that you [...] you will allow to register on the [email or web address] Patient Portal for access to your information. You can also access the [email or web address] Patient Portal on the Bandhappy josh. Simply click on Health Records under Health Data and then click on the [facility] logo. HOW TO SAFELY DISPOSE OF PRESCRIPTION [...] Call your local pharmacy or go to [email or web address] [email or web address] to find one close to you.3.Make use of household items: Use cat litter or old coffee grounds to dispose medications if other options are not available. Mix your drugs with these household products, seal them in an airtight container and throw it into the garbage. Call [facility]: [phone] to be sure your drugs can be [...] aware that I should contact my doctor. 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 [facility] 03-19-2024 Miscellaneous Notes Patient notified and rescheduled. [...] electrolyte drink when able, tylenol for headache/fever. [employer] message also sent with link to safe meds list. She does have appointment tomorrow with JG. How far out does that need rescheduled to now? Please advise if any further recommendations too. Angela George RN documented in this encounter [facility] 03-19-2024 Telephone encounter Note Recommend canceling OB appointment and rescheduling at least a week out. Nallely Romero MD [facility] Work Phone: 03-19-2024 Telephone encounter Note 17w3d [...] electrolyte drink when able, tylenol for headache/fever. [employer] message also sent with link to safe meds list. She does have appointment tomorrow with JG. How far out does that need rescheduled to now? Please advise if any further recommendations too. Angela George RN [facility] 02-15-2024 Miscellaneous Notes S: Luzmaria Hearn is [...] Valentina Yo MD documented in this encounter [facility] 02-15-2024 Instructions Catherine Thompson MA - 02/15/2024 9:01 AM EDT SEQUENTIAL SCREENINGS The [facility] offers sequential screenings for women who are [...] It will require an appointment with our veterinary assistant technician. This is not an ultrasound performed [...] the above symptoms, contact our office at [phone] and ask to speak with a nurse. After hours, you can call doctors registry at [phone] OR call [facility] at [phone] and ask to have the doctor bundler seasonal greenery paged. If you consider this an emergency, dial 9-- or go to your nearest emergency department. NEED HELP? Are you dealing with a violent or abusive relationship? Are you a victim of rape or sexual assult? Call [facility] ([place]) 24 hour Crisis Hotline: 452.723.4540 or 245-753-2272. MANUAL Your Guide to a Healthy manual is now on-line. Visit [email or web address] nileshColleen to download your free copy documented in this encounter [facility] 01-25-2024 Miscellaneous Notes Luzmaria Hearn is a [...] Oneida Mattson APRN.CNM documented in this encounter [facility] 01-25-2024 Note HNO ID: [id number] Author: ONEIDA MATTSON APRN.CNM Service: ? Author Type: Robotics Engineer Type: Progress Notes Filed: 01/25/2024 11:24 Note Text: . [facility] 01-25-2024 History of Presen t illness Narrative . documented in this encounter [facility] 01-18-2024 Miscellaneous Notes Luzmaria Hearn is a 19 year old female who presents at 8w5d for a follow up visit. Seen in two ED's 3 days ago for nausea and vomiting. Stated was unable to keep any food or liquids down for several days. Received 2 liters of fluid and started [...] Oneida Mattson APRN.CNM documented in this encounter [facility] 01-17-2024 Miscellaneous Notes Patient has follow up scheduled for tomorrow to discuss this. Evie Montes APRN.NITZA Patient given message. Patient states that she was seen at [facility] for N&V yesterday-still not kept any fluids down. She refuses to go back to [facility] because she feels that they get mad at her because they feel the shoudn't be doing anything more-the that OB should be managing this. She will call us back if she [...] take at the same time. Evie Montes APRN.NITZA documented in this encounter [facility] 01-17-2024 Hospital Discharg e instructions Patient Education [...] B6 and cristina. Don t try any uoma-eqq-wzshcbe medicines or home remedies without talking with [...] or as directed by your healthcare provider [phone] The [employer]. [address] [place] [address], [place] [address]. All rights reserved. This information is not intended as a substitute for professional medical care. Always follow your healthcare professional's instructions. Follow Up Care 01/16/2024 20:02:52 With:Your OBGYN Address: When:2-4 days [facility] Alexisjoel Munroe 01-16-2024 Emergency department Discharge summary Discharge Instructions Thank you for allowing Alex[facility] [...] B6 and cristina. Don t try any vipv-jij-khwklcl medicines or home remedies without talking with [...] or as directed by your healthcare provider [phone] The [employer]. [address] [place] [address]. All rights reserved. This information is not intended as a substitute for professional medical care. Always follow your healthcare professional's instructions. Additional Information VACCINATE! IT SAVES LIVES! Members of the community who have not yet received the COVID-19 vaccine and would like to receive it can visit one of [facility] vaccine clinics. There are many vaccine clinic locations within the [facility]. For locations and available times, please visit www.gettheshot.coronavirus.[place] .gov/. It is important to note that some COVID mobile vaccine clinics are held outdoors and may be canceled in rainy or stormy conditions. To learn more about pediatric vaccinations (ages 5-11), we invite you to visit the [facility] webpage. https://www.[facility].org/ pages/7632-Mylpt-Rcvxvpfvdtw-Fr yvxclpcr-Rfxrc-Evqayspll.html To learn more about the COVID-19 vaccine, we invite you to visit the CDC website for a list of frequently asked questions. https://www.cdc.gov/coronavirus /2019-ncov/vaccines/faq.html [email or web address] Patient Portal Access Instructions: Stay connected with your healthcare team and access your personal medical information anytime with the [email or web address] Patient Portal. If you would like a full copy of your medical records please contact the [facility] Medical Records Department Monday through Monday between 8a.m. and 4:30p.m. Please follow the directions below to access the portal: 1.Access the email account you provided upon registration to the [facility].2.Look for an invitation email from [facility].3.Open the email and access the invitation link: Accept Invitation to [facility]4.Fill in the required donahue to create your account. Sign into [email or web address] with your username and password that you [...] you will allow to register on the [email or web address] Patient Portal for access to your information. You can also access the [email or web address] Patient Portal on the Bandhappy josh. Simply click on Health Records under Health Data and then click on the [employer] logo. HOW TO SAFELY DISPOSE OF PRESCRIPTION [...] Call your local pharmacy or go to [email or web address]://[email or web address] [email or web address] to find one close to you.3.Make use of household items: Use cat litter or old coffee grounds to dispose medications if other options are not available. Mix your drugs with these household products, seal them in an airtight container and throw it into the garbage. Call [facility]: [phone] to be sure your drugs can be [...] aware that I should contact my doctor. 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 She is in ED now and scheduled for f/u . Gio Hammond RN Left message to call office. Cielo Leigh RN Yes, if patient is going to [...] up in the office this week? Cielo Leigh RN documented in this encounter [facility] 01-15-2024 Note HNO ID: [id number] Author: EVIE MONTES APRN.NITZA Service: ? Author Type: Nurse Practitioner Type: Progress Notes Filed: 01/15/2024 12:02 Note Text: OB point of care ultrasound was performed. See imaging tab for details. Evie Montes APRN.CNP [facility] 01-15-2024 History of Presen t illness Narrative OB point of care ultrasound was performed. See imaging tab for details. Evie Montes APRN.CNP documented in this encounter [facility] 01-15-2024 Note HNO ID: [id number] Author: EVIE MONTES APRN.CNP Service: ? Author Type: Nurse Practitioner Type: Progress Notes Filed: 01/15/2024 12:15 Note Text: Microarray Operations Vice President offered: Patient declines. INITIAL OB ASSESSMENT HPI: [...] 01-15-2024 History of Presen t illness Narrative Microarray Operations Vice President offered: Patient declines. INITIAL OB ASSESSMENT HPI: [...] Your guide to a health and the Cigarette Paper Tester. Discussed aneuploidy screening, nuchal translucency/first trimester early anatomy ultrasound and NIPT. The risks/benefits and limitations of NIPT/aneuploidy screening were reviewed including the potential for false negative and false positive results. The availability of genetic counseling was reviewed. Information on aneuploidy screening was provided. The patient chooses to proceed with First trimester early anatomy ultrasound (12-13w6d). Checking with insurance about Tjvpeglb23. Discussed myriad carrier screening. We discussed the availability of professional-society guided carrier screening and reviewed the conditions screened and limitations of screening. The availability of genetic counseling was reviewed. Information on carrier screening was provided. The patient Accepts Discussed hemoglobin electrophoresis. Patient: Declines Reviewed midwifery and robotics mechanic services that are available. 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 Family History of Diabetes Mellitus - 01/15/2024 Comment: FOB with type 1 Diabetes. Follow up for NT scan and OB visit. Evie Montes APRN.TRIAGE REGISTERED NURSE OB point of care ultrasound was performed. See imaging tab for details. Frances Ram LPN documented in this encounter [facility] 01-15-2024 Note HNO ID: [id number] Author: FRANCES RAM LPN Service: ? Author Type: LICENSED NURSE Type: Progress Notes Filed: 01/15/2024 12:15 Note Text: OB point of care ultrasound was performed. See imaging tab for details. Frances Ram LPN [facility] 01-11-2024 Instructions Evie Montes APRN.TRIAGE REGISTERED NURSE - 01/11/2024 11:25 AM EST Please select the following link to access the [facility] Your Guide to a Healthy . [email or web address] Please select the following link to access the [facility] Your Guide to a Healthy . [email or web address] Please select the following link to access the [facility] Your Guide to a Healthy . [email or web address] MORNING SICKNESS IN by Itzel Chin M.D. for [facility] As you may already know, morning sickness can often be more appropriately called evening sickness or wbswv-mqseiy-nv-the-day sickness. While there are the marisela few, [...] medication, Doxylamine, is currently marketed as an rvvq-flg-tuayrsr sleeping pill. Ask your practitioner if creating a vitamin B6/Doxylamine combination with uwlq-vgx-ejybyhl medications would be safe for you. Prescription [...] Phenergan, Compazine, Reglan documented in this encounter [facility] 01-05-2024 Discharge summary Note Date/Time January 05, 2024 9:07am [facility] Medical Records Department [address] [place] [address] Emergency Department Summary 01/05/24 MR#: [id number] Acct: [id number] Name: LUZMARIA HEARN Rep #:[id number] : 2005 19 From: Dale Sesay MD PCP: Dr. Dusty Galeano MD Status:REG ER Location: ED HPI HPI - GI History of Present Illness Chief Complaint: Nausea/Vomiting Informant: patient Nausea/Vomiting/Emesis GI Symptom: Positive for Nausea and Vomiting Onset: Today and Yesterday Severity: Moderate Diarrhea/Melena/Hematochezia GI Symptom: Positive for Diarrhea; Negative for Melena or Hematochezia Onset: Today and Yesterday Stool Quality: Positive for Loose Severity: Mild Associated Symptoms Associated Symptoms: Negative for Dysuria, Frequency, Hematuria or Urgency Narrative Narrative: 19-year-old female G2, P1 Ab0 currently about 7 weeks . [facility] Prior cholecystectomy. States for the last 2 days she has had nausea vomiting and diarrhea. No send of abdominal pain. No dysuria. No fever. Feels dehydrated. 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 Prior similar symptoms: No Recent Illness/Hospitalization: No PFSH PFSH Medical History no medical history no medical history Home Medications ondansetron 4 mg disintegrating tablet 4 mg PO Q8H PRN PRN Nausea #10 tabs 01/05/24 [Rx Last Taken Unknown] ondansetron HCl 4 mg tablet 4 mg PO Q8H PRN nausea and vomiting 01/05/24 [History Last Taken Unknown] Allergy/AdvReac Type Severity Reaction Status Date / Time No Known Allergies Allergy Verified 01/05/24 08:39 Surgical History History of cholecystectomy Social History Smoking Status: Never smoker ROS ROS ED ROS Narrative Nausea, vomiting and diarrhea last 2 days. Review of Systems ROS Unobtainable: Denies due to encephalopathy Constitutional Constitutional ED: Denies chills or fever(s) ENT ENT ED: Denies ear pain Cardiovascular Cardiovascular: Denies chest pain Respiratory/Chest Respiratory/Chest: Denies cough or dyspnea Gastrointestinal Gastrointestinal: Reports diarrhea, nausea and vomiting; Denies abdominal pain, constipation or melena Genitourinary Genitourinary ED: Denies dysuria or hematuria Musculoskeletal Musculoskeletal: Denies arthralgias, back pain, myalgias or neck pain Integumentary Denies abscess or Abrasions Neurologic Neurologic: Denies headache(s) Psychiatric Psychiatric: Denies anxiety or depression Endocrine Endocrinology: Denies polydipsia or polyphagia Hematologic/Lymphatic Hematologic/Lymphatic: Denies easy bleeding, easy bruising or lymphadenopathy Allergic/Immunologic Allergic/Immunologic ED: Denies mouth swelling, tongue swelling or urticaria EXAM Physical Exam Narrative Exam Narrative: 19-year-old female vital signs stable afebrile. H EENT exam unremarkable exceptmild dry mucous members. Neck nontender no lymphadenopathy. Lungs clear to auscultation bilaterally. Heart regular rhythm rate about 70 no murmur. Chest wall and ribs nontender. Abdomen soft nontender. Nondistended. No obstruction. No hernia or mass. Back nontender. Moving all 4 extremities. Calves are nontender without edema or cords. 5 5 steel tier strength. Dorsi plantarflexion intact. Neurologically she is awake and alert no focal motor deficits. Const Vital Signs: 01/05/24 08:39 Temperature 98.2 F Temperature Source Temporal Pulse Rate 68 Respiratory Rate 14 Blood Pressure 133/75 H Blood Pressure Mean 94 Pulse Ox 98 Oxygen Delivery Method Room Air Positive well nourished and well developed; Negative for cachectic, contracturesor unkempt General Appearance ED: well developed and NAD; Negative for unkempt, cachectic, contractures or pallor Nutritional Appearance: Negative for cachectic HEENT Reports dry mucous membranes; Denies moist mucous membranes normocephalic and atraumatic; Negative for trauma or tenderness Mouth ED: Yes dry mucous membranes Mouth: dry mucous membranes Eyes PERRL and EOMs intact bilaterally General Eye ED: Negative for pale conjunctiva or scleral icterus Neck no lymphadenopathy, supple and no JVD General: Negative for tenderness Carotids: Negative for other Lymph Lymphatic: Negative for other Resp normal respiratory effort and clear to auscultation bilaterally Effort and Inspection: Negative for respiratory distress or retractions Auscultation: Negative for rales, rhonchi or wheezes Cardio regular rhythm, S1 normal heart sound, S2 normal heart sound and no murmurs Rate: Negative for bradycardia or tachycardic Rhythm: Negative for abnormal rhythm GI non-tender, non-distended and no masses Inspection: Negative for abdominal distention Auscultation: normoactive bowel sounds Palpation: soft; Negative for tender, guarding or rebound tenderness present Back/Spine no CVA tenderness General Back: Negative for CVA tenderness Cervical Spine: Negative for cervical spine tenderness Thoracic Spine / Upper Back: Negative for thoracic spinal tenderness Lumbar Spine / Lower Back: Negative for lumbar spinal tenderness Coccyx: Negative for other Extremity full ROM General Extremety ED: Negative for edema or tenderness General Extremity: Negative for edema Neuro CN's II-XII intact bilaterally and moves all extremities Sensorium / Orientation: alert, oriented to person, oriented to place and oriented to time; Negative for orientation impaired, confused, lethargic or stuporous Motor Exam: Negative for strength 5/5 throughout or general weakness Psych mental status grossly normal and thought process normal Appearance: Negative for unkempt Attitude: No agitated Mood & Affect: Negative for depressed, anxious or tearful Skin no wounds General Skin Exam: Negative for jaundice or pallor Lesions: no lesions and No lesion noted Rashes: no rashes Trauma: Negative for abrasion Nails: Negative for discolored MDM MDM MDM Narrative Medical decision making narrative: 19-year-old nausea vomiting and diarrhea at 7 weeks . Clinical looks mildly dehydrated. IV fluids. IV Zofran. She is having no urinary symptoms. I do not think she needs any imaging. Her abdomen is completely nontender. BMP. Reassess. P.o. fluid challenge. Repeat exam at 9:39 AM patient doing well. Abdomen benign. Nausea improved with IV Zofran. She is receiving the IV fluids. She has been able to drink water and have some crackers. She will be discharged home on Zofran. Follow-upwith her OB as needed. Return if worse. History & Record Review Discussion w/independent historian: Patient and Family Additional record(s) reviewed:: Prior inpatient record, Prior outpatient record,Prior ED visit and Prior labs Lab Data Attestation: I reviewed the patient's lab results. Lab results narrative: BMP shows no acute abnormality. Gap 5. Normal BUN of 7 creatinine 0.6. Glucose 89. Labs: Laboratory Results - last 24 hr 01/05/24 09:10 Sodium 137 Potassium 3.7 Chloride 109 H Carbon Dioxide 23.0 Anion Gap 5 BUN 7 Creatinine 0.64 Estim Creat Clear Calc 163.23 Est GFR (MDRD) Af Amer 151 Est GFR (MDRD) Non-Af 125 BUN/Creatinine Ratio 11.0 Glucose 89 Calcium 9.3 Discharge Plan Triage Chief Complaint: Nausea/Vomiting ED Provider: Dale Sesay Dx/Rx/DC Orders Clinical Impression: First trimester , Nausea & vomiting Instructions: ED Vomiting (Adult) Prescriptions: New ondansetron 4 mg tablet,disintegrating 4 mg PO Q8H PRN PRN (Reason: Nausea) Qty: 10 0RF No Action ondansetron HCl 4 mg tablet 4 mg PO Q8H PRN (Reason: nausea and vomiting) Patient Comments: take 1 tablet by mouth every 8 hours if needed for nausea and vomiting Primary Care Provider: Dusty Galeano Referrals: Jocelynn Araiza MD [Med Staff - Active Staff] - As Needed Dusty Galeano MD [Primary Care Provider] - Activity Restrictions/Additional Instructions: Zofran as needed for nausea. You can either swaddle it dissolve under your tongue. Plenty of fluids and rest. Increase your diet slowly as tolerated. Initially started out with water, Gatorade and 7-Up and increase from there. Follow-up with your OB as needed. Return if worse. Disposition Disposition: Home, Self Care What to do if you have Problems For any increased pain, shortness of breath, bleeding, nausea or vomiting, chestpain, or any unexpected problems, contact your Primary Care Provider. Call [facility] ([phone]) or report to the closest Emergency Room. Call 911 if necessary. 01/05/24 0941 <Electronically signed by Dale Sesay MD> Cosigner Signature (if applicable): CC: Dr. Dusty Galeano MD ~ Signed [facility] Work Phone: 1(976) 633-570602-27-2024 Miscellaneous Notes* Telephone Encounter - Frances Ram LPN - 2024 4:13 PM EST Pt voiced understanding and is on her way in to have lab work drawn today. Pt will then have front desk supervisor staff schedule her follow up ultrasound. Pt reports that she is having some slight cramping. Frances Ram LPN * Telephone Encounter - Jocelynn Araiza MD - 2024 4:05 PM EST I am sorry this happened on her birthday! Yes repeat quant ordered. Is she having any pain? Schedule formal US for next week but call us if pain or heavier bleeding. Jocelynn Araiza MD * Telephone Encounter - Valentina Falcon RN - 2024 3:31 PM EST LMP 11/17 hCG Quantitative, Blood Date Value 12/29/2023 2,007.0 mIU/mL 12/28/2023 1460 Patient called because she went to the bathroom and noted blood when she wiped. Light amount. Denies cramping or pain. Patient tearful on phone. Would you like her to have another hCG quant done? NOBis 01/14. Reviewed bleeding precautions. Valentina Falcon RN documented [facility]-2024 NoteHNO ID: [id number] Author: EVIE MONTES APRN.[employer] REGISTERED NURSE Service: ? Author Type: Nurse Practitioner Type: [...] L1 SAB0 IAB0 Ectopic0 Multiple0 Live Births1 Urology Physician History LMP: 10/27/2021, Having periods Age at Menarche: Age at First : Age at Menopause: Urology Physician History Comments: Sexual Activity: No sexual activity [...] hours without food or water Evie Montes APRN.[employer] REGISTERED NURSE Medical Decision Making: Problems: Low: Acute, uncomplicated illness or injury Risk: Low: Low risk from testing/treatment Moderate: Drug management Medical Decision Making Level: 3 - [facility] Miscellaneous Notes* Telephone Encounter - Valentina Falcon RN - 01/01/2024 8:30 AM EST Patient called. Reviewed her Hcg quants on [employer]. She continues to have N/V. Reviewed recommendations sent in previous [employer] message. Again, advised to go to ER if she is unable to keep any food/fluids down in 24 hours. Scheduled her for a New OB on 01/14. hCG Quantitative, Blood Date Value 12/29/2023 2,007.0 mIU/mL 12/28 hcg quant was 1460 * Telephone Encounter - Angela George RN - 12/29/2023 11:23 AM EST Attempted to call patient. Unable to leave message because received message that wireless customer is not available and to please try again later. Angela George RN * Telephone Encounter - Danae Ashraf MD - 12/29/2023 9:09 AM EST Needs repeat HCG quant 48 hrs from draw. Start Vitamin B6 and Unisom for nausea. Give torsion precautions. To have NOB scheduled * Telephone Encounter - Angela Georeg RN - 12/29/2023 8:32 AM EST Patient calling to schedule ER f/u. LMP 11/18, but only bled 2 days and was not normal for her. She was having significant right sided pain and n/v yesterday. With menses being late and symptoms she took UPT and it was positive so she went to [facility] ER. She is not having any pain this morning. No fever. Does have nausea/vomiting since 4am again. States that occurs every morning for the last few days and her appetite has been minimal. ER u/s showed intrauterine - yolk sac but no poleand 5.5cm right ovarian cyst. 12/28 hcg quant was 1460. ER records to to view. Please advise whatfollow up she needs. NOB will need scheduled too. Angela George RN documented in this encounterKind[facility]02-22-2024 Discharge summary Author Lukas Peña [facility] December 28, 2023 10:37pm Note Date/Time December 28, 2023 9:07pm [facility] Medical Records Department [address] [place] [address] Emergency Department Summary 12/28/23 MR#: [id number] Acct: [id number] Name: LUZMARIA HEARN Rep #:[id number] : 2005 18 From: Lukas Peña MD PCP: Dr. Dusty Galeano MD Status:REG ER Location: ED HPI <BO Lee - Last Filed: 12/28/23 21:16> HPI - Female History of Present Illness Chief Complaint: Vag Bleeding Narrative Narrative: Patient presenting today due to concerns for vaginal spotting that occurred 2 days ago. She reports that she is 9 days late on her menstrual period. Today, she took 2 at home test that came back positive. She reports that shehas had intermittent cramping lower abdominal pain today. She does have intermittent nausea. She is G2, P1. She denies any fevers or chills. PFSH <BO Lee - Last Filed: 12/28/23 21:16> PFSH Home Medications NK 12/28/23 [History Last Taken Unknown] Allergy/AdvReac Type Severity Reaction Status Date / Time No Known Allergies Allergy Verified 12/28/23 20:53 Surgical History History of cholecystectomy Social History Smoking Status: Never smoker ROS <BO Lee - Last Filed: 12/28/23 21:16> ROS ED Constitutional Constitutional ED: Denies chills or fever(s) Cardiovascular Cardiovascular: Denies chest pain Respiratory/Chest Respiratory/Chest: Denies cough or dyspnea Gastrointestinal Gastrointestinal: Reports abdominal pain and nausea; Denies vomiting Genitourinary Genitourinary ED: Denies dysuria, hematuria or urinary urgency Musculoskeletal Musculoskeletal: Denies arthralgias or myalgias Integumentary Denies rash Neurologic Neurologic: Denies weakness EXAM <BO Lee - Last Filed: 12/28/23 21:16> Physical Exam Const Vital Signs: 12/28/23 20:50 Temperature 97.6 F L Temperature Source Temporal Pulse Rate 86 Respiratory Rate 18 Blood Pressure 155/92 H Blood Pressure Mean 113 Pulse Ox 97 Oxygen Delivery Method Room Air Positive well nourished, well developed and no apparent distress General Appearance ED: well developed HEENT Reports normocephalic and head/scalp atraumatic Mouth ED: Yes moist mucous membranes normal Eyes PERRL and EOMs intact bilaterally Neck full ROM and supple Chest Wall inspection of chest normal Resp normal respiratory effort and clear to auscultation bilaterally Cardio regular rate and regular rhythm GI soft to palpation, non-distended and no masses GI Narrative: Diffuse tenderness across patient's lower abdomen/pelvis, no rigidity, guarding,or peritoneal signs. Back/Spine normal ROM and normal to inspection Extremity normal to inspection and full ROM Neuro oriented x3, CN's II-XII intact bilaterally, moves all extremities, no focal motor deficits and no sensory deficits noted Sensorium / Orientation: awake and alert Psych mental status grossly normal and thought process normal Skin no rashes or lesions noted and no wounds <Dr. Lukas Peña MD - Last Filed: 12/28/23 22:37> Physical Exam Const Vital Signs: 12/28/23 20:50 Temperature 97.6 F L Temperature Source Temporal Pulse Rate 86 Respiratory Rate 18 Blood Pressure 155/92 H Blood Pressure Mean 113 Pulse Ox 97 Oxygen Delivery Method Room Air MDM <BO Lee - Last Filed: 12/28/23 21:16> MDM MDM Narrative Medical decision making narrative: Patient is nontoxic-appearing and in no acute distress, she is presenting due tolower abdominal/pelvic cramping that started today and vaginal spotting that started 2 days ago. She has not had any bleeding since. She did have 2 positive test today. She is . Labs will be obtained to assess serum hCG quant. She has a A+ blood type. Transvaginal ultrasound will be obtained to rule out miscarriage/ectopic . Lab Data Labs: Laboratory Results - last 24 hr 12/28/23 21:13 HCG, Quant 1460 H Radiography Diagnostic Testing: Clinical Impression(s) from Imaging Studies Obstetrics Ultrasound 12/28/23 21:01 IMPRESSION: Single intrauterine with normal yolk sac. pole not yet seen compatible with early gestational age. Recommend repeat ultrasound in one to 2 weeks. Right ovarian 5.5 cm simple physiologic cyst with preserved ovarian Doppler vascular flow. Recommend attention to right ovary on ultrasound follow-up recommended above. Normal left ovary. Small volume likely physiologic free fluid in the pelvis. Electronically Signed: Wayne Rowley MD at 22:31 EST Reading Location ID and State: [address] [place] [address] Tel , Service support , <Dr. Lukas Peña MD - Last Filed: 12/28/23 22:37> [facility] Narrative Medical decision making narrative: Patient is nontoxic-appearing and in no acute distress, she is presenting due tolower abdominal/pelvic cramping that started today and vaginal spotting that started 2 days ago. She has not had any bleeding since. She did have 2 positive test today. She is . Labs will be obtained to assess serum hCG quant. She has a A+ blood type. Transvaginal ultrasound will be obtained to rule out miscarriage/ectopic . I have personally performed a face to face assessment of the patient and have reviewed the JOSH Note. I performed a substantive portion of the visit including all aspects of the following. My ardon findings include: History is remarkable for spotting 2 days ago. Patient has a positive blood. This is her second . Patient had a positive test at home. She has a known right ovarian cyst. Ultrasound was performed March 2023 and cyst measured 5.1 cm. She is complaining of left sided pain. He has not bled since 2 days ago. She is complaining of pain similar to menstrual cramps. She deniesdysuria, hematuria. She does endorse frequency. She denies vomiting or diarrhea. She denies orthostatic symptoms. She denies pain referred to her left or right scapula. Exam is unremarkable. Patient is no distress. Blood pressure is elevated. Lungs are clear to auscultation. Heart is regular. Rate is normal. There is no murmur, gallop or rub. Abdomen is remarkable for right inguinal discomfort. She has more discomfort on the left inguinal area. There is mild suprapubic discomfort. Medical Decision Making patient's blood type is known will obtain quantitative serum hCG and ultrasound to evaluate for ectopic , demise, ovarian torsion Other additions or changes: [None] Lab Data Labs: Laboratory Results - last 24 hr 12/28/23 21:13 HCG, Quant 1460 H Radiography Diagnostic Testing: Clinical Impression(s) from Imaging Studies Obstetrics Ultrasound 12/28/23 21:01 IMPRESSION: Single intrauterine with normal yolk sac. pole not yet seen compatible with early gestational age. Recommend repeat ultrasound in one to 2 weeks. Right ovarian 5.5 cm simple physiologic cyst with preserved ovarian Doppler vascular flow. Recommend attention to right ovary on ultrasound follow-up recommended above. Normal left ovary. Small volume likely physiologic free fluid in the pelvis. Electronically Signed: Wayne Rowley MD at 22:31 EST Reading Location ID and State: [facility] / [place] Tel , Service support , Radiology report was read. Treatment and Re-Evaluation Narrative: Patient was informed of her blood work and ultrasound results. She states was a patient of Dr. Brown's. Franc Brown delivered her first child. She would like to follow-up with her. Discharge Plan Triage Chief Complaint: Vag Bleeding ED Midlevel Provider: Jen Pa ED Provider: Lukas Peña Dx/Rx/DC Orders Clinical Impression: First trimester bleeding, Cyst of right ovary Instructions: Ovarian Cysts, Miscarriage Threatened Prescriptions: No Action NK Primary Care Provider: Dusty Galeano Referrals: Valentina Sales DO [Med Staff - Active Staff] - 1 Week Dusty Galeano MD [Primary Care Provider] - Disposition Disposition: Home, Self Care What to do if you have Problems For any increased pain, shortness of breath, bleeding, nausea or vomiting, chestpain, or any unexpected problems, contact your Primary Care Provider. Call [facility] ([phone]) or report to the closest Emergency Room. Call 911 if necessary. 12/28/232236 <Electronically signed by Lukas Peña MD> Cosigner Signature (if applicable): 12/28/232115 <Electronically signed by Jen SORIANO> CC: Dr. Dusty Galeano MD ~ Signed [facility] Work Phone: 1(411) 910-496412-20-2022 Hospital Discharge instructions Patient Education 10/25/2022 20:52:41 Anatomy of the Digestive System Anatomy of the Digestive System Food gives the body the energy needed for life. The digestive system breaks food down into basic nutrients that can be used by the body. The digestive tract is a long, muscular tube that extends fromthe mouth through the stomach and intestines to [...] The opening where stool leaves the body. 2388-[address] [employer] [place] [address]. All rights reserved. This information is not intended as a substitute for professional medical care. Always follow yourhealthcare professional's instructions. Follow Up Care 10/25/2022 14:26:13 With:DUSTY GALEANO MD Address: [address] [place] [address]- When:2-4 days [facility] 12[facility]22 Note Discharge Instructions Thank you for allowing [facility] to assist you with your healthcare needs. The following is importantdischarge information regarding your hospital visit. Diagnosis from Today's Visit Abdominal pain COVID-19 Epiploic appendagitis Dizziness Urinary Incontinence Vomiting What to Do Next Instructions from Your Care Team No qualifying data available. Post Acute Orders No qualifying data available. You Need to Schedule the Following Appointments Follow Up with DUSTY GALEANO MD When Within 2-4 days Where: [address] [place] [address]- Allergies NKA Medications Please ask your primary doctor or pharmacist before taking any other medication not listed, including over the counter drugs, herbal medications, vitamins and or supplements as they may interact withyour home medications. What How Much When Why [...] is a long, muscular tube that extends fromthe mouth through the stomach and intestines to [...] The opening where stool leaves the body. 1978-0163 [employer]. [address] [place] [address]. All rights reserved. This information is not intended as a substitute for professional medical care. Always follow yourhealthcare professional's instructions. Additional Information VACCINATE! IT SAVES LIVES! Members of the community who have not yet received the COVID-19 vaccine and would like to receive it can visit one of [facility] vaccine clinics. There are many vaccine clinic locations within the [facility]. For locations and available times, please visit [email or web address]. It is important to note that some COVID mobile vaccine clinics are held outdoors and may be canceled in rainy orstormy conditions. To learn more about pediatric vaccinations (ages 5-11), we invite you to visit the [facility] webpage. [email or web address]/[email or web address]-[email or web address]-[email or web address]-[email or web address] stions.htmlTo learn more about the COVID-19 vaccine, we invite you to visit the [facility] website for a list of frequently asked questions. https://[email or web address]/assets/Pdgtbipz-jtr-Nwernwzr/okhsl-Avtdeqr-Evzqdctvmq _Asked-Questions.pdf [facility] Patient Portal Access Instructions: Stay connected with your healthcare team and access your personal medical information anytime with the [facility] Patient Portal. If you would like a full copy of your medical records please contact the [facility] Medical Records Department Monday through Monday between 8a.m. and 4:30p.m. Please follow the directions below to access the portal: 1.Access the email account you provided upon registration to the [facility].2.Look for an invitation email from [facility].3.Open the email and access the invitation link: Accept Invitation to [facility]4.Fill in the required donahue to create your account. Sign into [email or web address] with your username and password that [...] you will allow to register on the [facility] Patient Portal for access to your information. You can also access the [email or web address] Patient Portal on the [employer] josh. Simply click on Health Records under [employer] and then click on the [employer] logo. HOW TO SAFELY DISPOSE OF PRESCRIPTION MEDICATIONS Please use one of the following methods to safely dispose of your unused medications. 1.Use a drug disposal kit: the drug disposal pouch allows you to safely discard your old and unuseddrugs. Ask your nurse to give you one when you are discharged.2.Visit a local take-back location: Many local pharmacies and police departments have programs that collect old and unwanted prescriptiondrugs. Call your local pharmacy or go to http://bit.[place]. [employer]/9B4Fp2e to find one close to you.3.Make use of household items: Use cat litter or old coffee grounds to dispose medications if other options arenot available. Mix your drugs with these household products, seal them in an airtight container andthrow it into the garbage. Call [facility]: [phone] to be sure your drugs can be [...] drowsiness, such as benzodiazepines, also known as benzos,including diazepam and alprazolam, muscle relaxants or sleep aids. Never sell or share prescriptionopioids. This is illegal. Store opioids in a [...] aware that I should contact my doctor. 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: Date/Time: Relationship to Patient: Witness Name/Signature: [facility] Note ORIGINAL EXAMINATION: CT OF THE ABDOMEN [...] Sign Date: 10/25/2022 8:41:17 PM Ordering Provider: [facility]12[facility]2022 Note ORIGINAL EXAMINATION: CT OF THE ABDOMEN [...] Sign Date: 10/25/2022 8:41:17 PM Ordering Provider: [facility]12-20-2022 SARS-CoV-2 (COVID-19) RNA LILIA+probe Ql (Nph)Positive *ABN* (10/25/22 3:28 PM)AO Auto Urine [id number] History of Past illness Narrative* Problem Noted Date Diagnosed Date Resolved Date High risk with catherine vated human chorionic gonadotropin (hCG) and alpha fetoprotein (AFP) 09/20/2016 01/26/2021 Overview: September 20, 2016 needs growth scan in 3rd trimester. Jocelynn Araiza MD Rubella non-immune status, antepartum 07/28/2016 01/26/2021 High risk teen 06/09/2016 Overview: 06/09/2016Pt is 11 years old. She completed the 7th grade at [employer] last year and is planning on homeschooling [...] and was hospitalized for 1 week at [facility] for overdose of medication. She denies any [...] of this encounter (statuses as of 01/03/2024) [facility]11-15-2016 History of Past illness Narrative* Problem Noted Date Diagnosed Date Resolved Date High risk with catherine vated human chorionic gonadotropin (hCG) and alpha fetoprotein (AFP) 09/20/2016 01/26/2021 Overview: September 20, 2016 needs growth scan in 3rd trimester. Jocelynn Araiza MD Rubella non-immune status, antepartum 07/28/2016 01/26/2021 High risk teen 06/09/2016 Overview: 06/09/2016Pt is 11 years old. She completed the 7th grade at [employer] last year and is planning on homescholos gatosg this year. The FOB is 13 years [...] and was hospitalized for 1 week at [facility] for overdose of medication. She denies any [...] of this encounter (statuses as of 01/03/2024) [facility]11-15-2016 History of Past illness Narrative* Problem Noted Date Diagnosed Date Resolved Date High risk with catherine vated human chorionic gonadotropin (hCG) and alpha fetoprotein (AFP) 09/20/2016 01/26/2021 Overview: September 20, 2016 needs growth scan in 3rd trimester. Jocelynn Araiza MD Rubella non-immune status, antepartum 07/28/2016 01/26/2021 High risk teen 06/09/2016 Overview: 06/09/2016Pt is 11 years old. She completed the 7th grade at [employer] last year and is planning on homescholos gatosg this year. The FOB is 13 years [...] and was hospitalized for 1 week at [facility] for overdose of medication. She denies any [...] of this encounter (statuses as of 01/15/2024) [facility]-15-2016 History of Past illness Narrative* Problem Noted Date Diagnosed Date Resolved Date High risk with catherine vated human chorionic gonadotropin (hCG) and alpha fetoprotein (AFP) 09/20/2016 01/26/2021 Overview: September 20, 2016 needs growth scan in 3rd trimester. Jocelynn Araiza MD Rubella non-immune status, antepartum 07/28/2016 01/26/2021 High risk teen 06/09/2016 Overview: 06/09/2016Pt is 11 years old. She completed the 7th grade at [employer] last year and is planning on homescholos gatosg this year. The FOB is 13 years [...] and was hospitalized for 1 week at [facility] [place] for overdose of medication. She denies any [...] of this encounter (statuses as of 01/15/2024) [facility]-15-2016 History of Past illness Narrative* Problem Noted Date Diagnosed Date Resolved Date High risk with catherine vated human chorionic gonadotropin (hCG) and alpha fetoprotein (AFP) 09/20/2016 01/26/2021 Overview: September 20, 2016 needs growth scan in 3rd trimester. Jocelynn Araiza MD Rubella non-immune status, antepartum 07/28/2016 01/26/2021 High risk teen 06/09/2016 Overview: 06/09/2016Pt is 11 years old. She completed the 7th grade at [employer] last year and is planning on homeschooling [...] and was hospitalized for 1 week at [facility] for overdose of medication. She denies any [...] of this encounter (statuses as of 01/17/2024) [facility]2016 History of Past illness Narrative* Problem Noted Date Diagnosed Date Resolved Date High risk with catherine vated human chorionic gonadotropin (hCG) and alpha fetoprotein (AFP) 09/20/2016 01/26/2021 Overview: September 20, 2016 needs growth scan in 3rd trimester. Jocelynn Araiza MD Rubella non-immune status, antepartum 07/28/2016 01/26/2021 High risk teen 06/09/2016 Overview: 06/09/2016Pt is 11 years old. She completed the 7th grade at [employer] last year and is planning on homeschooling [...] and was hospitalized for 1 week at [facility] for overdose of medication. She denies any [...] of this encounter (statuses as of 01/17/2024) [facility]2016 History of Past illness Narrative* Problem Noted Date Diagnosed Date Resolved Date High risk with catherine vated human chorionic gonadotropin (hCG) and alpha fetoprotein (AFP) 09/20/2016 01/26/2021 Overview: September 20, 2016 needs growth scan in 3rd trimester. Jocelynn Araiza MD Rubella non-immune status, antepartum 07/28/2016 01/26/2021 High risk teen 06/09/2016 Overview: 06/09/2016Pt is 11 years old. She completed the 7th grade at [employer] last year and is planning on homeschooling [...] and was hospitalized for 1 week at [facility] for overdose of medication. She denies any [...] of this encounter (statuses as of 01/18/2024) [facility]2016 History of Past illness Narrative* Problem Noted Date Diagnosed Date Resolved Date High risk with catherine vated human chorionic gonadotropin (hCG) and alpha fetoprotein (AFP) 09/20/2016 01/26/2021 Overview: September 20, 2016 needs growth scan in 3rd trimester. Jocelynn Araiza MD Rubella non-immune status, antepartum 07/28/2016 01/26/2021 High risk teen 06/09/2016 Overview: 06/09/2016Pt is 11 years old. She completed the 7th grade at [employer] last year and is planning on homescholos gatos[employer] this year. The FOB is 13 years [...] and was hospitalized for 1 week at [facility] for overdose of medication. She denies any [...] of this encounter (statuses as of 01/25/2024) [facility] History of Past illness Narrative* Problem Noted Date Diagnosed Date Resolved Date High risk with catherine vated human chorionic gonadotropin (hCG) and alpha fetoprotein (AFP) 09/20/2016 01/26/2021 Overview: September 20, 2016 needs growth scan in 3rd trimester. Jocelynn Araiza MD Rubella non-immune status, antepartum 07/28/2016 01/26/2021 High risk teen 06/09/2016 Overview: 06/09/2016Pt is 11 years old. She completed the 7th grade at [employer] last year and is planning on homeschooling [...] and was hospitalized for 1 week at [facility] for overdose of medication. She denies any [...] of this encounter (statuses as of 02/15/2024) [facility]2016 History of Past illness Narrative* Problem Noted Date Diagnosed Date Resolved Date High risk with catherine vated human chorionic gonadotropin (hCG) and alpha fetoprotein (AFP) 09/20/2016 01/26/2021 Overview: September 20, 2016 needs growth scan in 3rd trimester. Jocelynn Araiza MD Rubella non-immune status, antepartum 07/28/2016 01/26/2021 High risk teen 06/09/2016 Overview: 06/09/2016Pt is 11 years old. She completed the 7th grade at [employer] last year and is planning on homeschooling [...] and was hospitalized for 1 week at [facility] for overdose of medication. She denies any [...] of this encounter (statuses as of 02/16/2024) [facility] No data available for this section [facility] Evaluation noteNo assessment information available [facility] Work Phone: Evaluation note* Diagnosis Vaginal bleeding in , first trimester- Primary [facility] Diagnosis Early stage of - Primary state, incidental [facility] Diagnosis with uncertain dates in first trimester- Primary [facility]* Diagnosis Encounter for supervision of high [...] of the cervix documented in this encounter [facility] note* Diagnosis UTI (urinary tract infection) in , antepartum Infections of genitourinary tract antepartum Chlamydia infection affecting in first trimester documented in this encounter [facility] note* Diagnosis 8 weeks gestation of - Primary state, incidental Chlamydia infection affecting in first trimester Nausea/vomiting in Unspecified vomiting of , unspecified as to episode of care documented in this encounter [facility] note* Diagnosis 9 weeks gestation of - Primary state, incidental Chlamydia infection affecting in first trimester Nausea/vomiting in Unspecified vomiting of , unspecified as to episode of care documented in this encounter [facility] note* Diagnosis Encounter for (NT) nuchal translucency scan- Primary Other specified screening Encounter for supervision of high risk in first trimester, antepartum 12 weeks gestation of state, incidental documented in this encounter [facility] note* Diagnosis 12 weeks gestation of - Primary state, incidental Encounter for supervision of high risk in first trimester, antepartum Chlamydia infection affecting in first trimester documented in this encounter [facility] note* Diagnosis Supervision of high risk in second trimester- Primary Unspecified high-risk 18 weeks gestation of state, incidental Nausea/vomiting in Unspecified vomiting of , unspecified as to episode of care Severe obesity due to excess calories affecting , antepartum (HCC) Heartburn during in second trimester documented in this encounter [facility] note* Diagnosis Encounter for anatomic survey- Primary 18 weeks gestation of state, incidental Obesity affecting in third trimester, unspecified obesity type documented in this encounter [facility] note* Diagnosis Fever, unspecified fever cause- Primary Sore throat Acute pharyngitis documented in this encounter [facility] note* Diagnosis Encounter for supervision of high risk in first trimester, antepartum- Primary 23 weeks gestation of state, incidental Supervision of high risk in second trimester Unspecified high-risk Chlamydia infection affecting in first trimester UTI (urinary tract infection) in , antepartum Infections of genitourinary tract antepartum Ovarian cyst, right Other and unspecified ovarian cyst History of macrosomia in infant in prior , currently with other poor obstetric history Nausea/vomiting in Unspecified vomiting of , unspecified as to episode of care Heartburn during in second trimester Obesity in , antepartum Obesity complicating , childbirth, or the puerperium, antepartum condition or complication Irritant dermatitis Contact dermatitis and other eczema, due to unspecified cause [facility] Diagnosis Encounter for supervision of high risk in third trimester, antepartum- Primary 27 weeks gestation of state, incidental Obesity affecting in third trimester, unspecified obesity type Chlamydia infection affecting in first trimester Ovarian cyst, right Other and unspecified ovarian cyst Nausea/vomiting in Unspecified vomiting of , unspecified as to episode of care [facility] Diagnosis 29 weeks gestation of - Primary state, incidental Encounter for supervision of high risk in third trimester, antepartum Obesity affecting in third trimester, unspecified obesity type [facility] Diagnosis Obesity affecting in third trimester, unspecified obesity type- Primary 31 weeks gestation of state, incidental Need for vaccination Need for prophylactic vaccination and inoculation against unspecified single disease [facility] Diagnosis Encounter for ultrasound to check growth- Primary Encounter for routine screening for malformation using ultrasonics Obesity affecting in third trimester, unspecified obesity type 31 weeks gestation of state, incidental [facility] Diagnosis Obesity affecting in third trimester, unspecified obesity type- Primary Encounter for ultrasound to check growth Encounter for routine screening for malformation using ultrasonics tachycardia affecting management of mother Abnormality in heart rate/rhythm, unspecified as to episode of care or not applicable 34 weeks gestation of state, incidental [facility] Diagnosis 35 weeks gestation of - Primary state, incidental Obesity affecting in third trimester, unspecified obesity type Heartburn during in third trimester [facility] Diagnosis Encounter for ultrasound to check growth- Primary Encounter for routine screening for malformation using ultrasonics Obesity affecting in third trimester, unspecified obesity type 36 weeks gestation of state, incidental [facility] Diagnosis Obesity affecting in third trimester, unspecified obesity type- Primary Heartburn during in third trimester 36 weeks gestation of state, incidental Positive GBS test [facility]* Diagnosis Encounter for supervision of high risk in third trimester, antepartum- Primary 37 weeks gestation of state, incidental Obesity affecting in third trimester, unspecified obesity type [facility]* Diagnosis Encounter for supervision of high risk in third trimester, antepartum- Primary 38 weeks gestation of state, incidental Obesity affecting in third trimester, unspecified obesity type Heartburn during in third trimester Positive GBS test [facility] Diagnosis 39 weeks gestation of - Primary state, incidental Obesity affecting in third trimester, unspecified obesity type Encounter for supervision of high risk in third trimester, antepartum [facility] Diagnosis Heartburn during in third trimester- Primary Family history of diabetes mellitus History of macrosomia in infant in prior , currently with other poor obstetric history Obesity in , antepartum Obesity complicating , childbirth, or the puerperium, antepartum condition or complication Encounter for supervision of high risk in third trimester, antepartum 40 weeks gestation of state, incidental Positive GBS test [facility]* Diagnosis 40 weeks gestation of - Primary state, incidental Obesity in , antepartum Obesity complicating , childbirth, or the puerperium, antepartum condition or complication Encounter for supervision of high risk in third trimester, antepartum [facility]* Diagnosis Routine follow-up- Primary Lactating mother care and examination of lactating mother [facility]* Diagnosis care and examination- Primary Routine follow-up Encounter for routine examination for contraception Routine gynecological examination [facility]* Diagnosis Nexplanon insertion- Primary Insertion of implantable subdermal contraceptive Insertion of implantable subdermal contraceptive documented in this encounter [facility] Discharge instructions Additional Instructions Plan fluids and rest. Increase diet slowly as tolerated. Zofran as needed for nausea Maria water let dissolve in your tongue. Return if worse or follow-up with your doctor if not improving.[facility] Work Phone: Hospital Discharge instructions Additional Instructions Zofran as needed for nausea. You can either swaddle it dissolve under your tongue. Plenty of fluids and rest. Increase your diet slowly as tolerated. Initially started out with water, Gatorade and 7-Up and increase from there. Follow-up with your OB as needed. Return if worse.[facility] Work Phone: Reason for referral (narrative)* Diagnostic Procedure Only (Routine) - Authorized Specialty Diagnoses / Procedures Referred By Kya bagley Referred To Contact [facility] Diagnoses Vaginal bleeding in , first trimester Procedures US FEMALE PELVIS TRANSVAG US TRANSVAGINAL Jocelynn Araiza MD [address] [place] [address] [id number] Referral ID Status Reason Start Date Expiration Date Visits Requested Visits Authorized [id number] Authorized Auto-Generat ed Referral 2024 01/31/2025 1 1 [facility] for referral (narrative)* Diagnostic Procedure Only (Routine) - Authorized Specialty Diagnoses / Procedures Referred By Kya bagley Referred To Contact [facility] Diagnoses Encounter for supervision of high risk in first trimester, antepartum 8 weeks gestation of with uncertain dates in first trimester Procedures NUCHAL TRANSLUCENCY WHI US NUCHAL TRANSLUCENCY 1ST GESTATION Evie Montes APRN.CNP [address] [place] [address] [facility] [address] [place] [address] Referral ID Status Reason Start Date Expiration Date Visits Requested Visits Authorized [id number] Authorized Auto-Generat ed Referral 01/15/2024 01/14/2025 1 1 [facility] for referral (narrative)* Diagnostic Procedure Only (Routine) - Authorized Specialty Diagnoses / Procedures Referred By Contac t Referred To Contact [facility] Diagnoses 18 weeks gestation of Procedures OBSTETRIC ULTRASOUND WHI US PREG UTERUS AFTER 1ST TRIMEST GESTATION Jocelynn Araiza MD [address] [place] [address] [facility] [place] [address] Referral ID Status Reason Start Date Expiration Date Visits Requested Visits Authorized [id number] Authorized Auto-Generat ed Referral 03/25/2024 03/25/2025 1 1 [facility] for referral (narrative)* Diagnostic Procedure Only (Routine) - Authorized Specialty Diagnoses / Procedures Referred By Contac t Referred To Contact [facility] Diagnoses Encounter for supervision of high risk in third trimester, antepartum 27 weeks gestation of Obesity affecting in third trimester, unspecified obesity type Procedures OBSTETRIC ULTRASOUND WHI US PREG UTERUS AFTER 1ST TRIMEST GESTATION Evie Montes APRN.CNP [address] [place] [address] [facility] [email or web address] [place] [address] Referral ID Status Reason Start Date Expiration Date Visits Requested Visits Authorized [id number] Authorized Auto-Generat ed Referral 05/31/2024 05/31/2025 1 1 [facility] for referral (narrative)* Diagnostic Procedure Only (Routine) - Authorized Specialty Diagnoses / Procedures Referred By Contac t Referred To Contact [facility] Diagnoses Obesity affecting in third trimester, unspecified obesity type Encounter for ultrasound to check growth Procedures OBSTETRIC ULTRASOUND WHI US PREG UTERUS AFTER 1ST TRIMEST GESTATION Valentina Yo MD [address] [place] [address] [facility] [address] [address] Referral ID Status Reason Start Date Expiration Date Visits Requested Visits Authorized [id number] Authorized Auto-Generat ed Referral 07/16/2024 07/16/2025 1 1 [facility] for referral (narrative)* Outpatient Procedure (Routine) - Authorized Specialty Diagnoses / Procedures Referred By Contac t Referred To Contact [facility] Diagnoses 35 weeks gestation of Obesity affecting in third trimester, unspecified obesity type Procedures NON-STRESS TEST NON-STRESS TEST Oneida Mattson APRN.CNM [address] [place] [address] [address] Referral ID Status Reason Start Date Expiration Date Visits Requested Visits Authorized [id number] Authorized Auto-Generat ed Referral 07/26/2024 07/26/2025 1 1 [facility] for referral (narrative)* Outpatient Procedure (Routine) - Authorized Specialty Diagnoses / Procedures Referred By Contac t Referred To Contact [facility] Diagnoses Obesity affecting in third trimester, unspecified obesity type Encounter for supervision of high risk in third trimester, antepartum 38 weeks gestation of Procedures NON-STRESS TEST NON-STRESS TEST Jackie Candelaria APRN.CNM [address] [place] [address] [address] Referral ID Status Reason Start Date Expiration Date Visits Requested Visits Authorized [id number] Authorized Auto-Generat ed Referral 08/16/2025 3 1 [facility] for referral (narrative)* Outpatient Procedure (Routine) - Authorized Specialty Diagnoses / Procedures Referred By Contac t Referred To Contact [facility] Diagnoses care and examination Encounter for routine examination for contraception Procedures NEXPLANON INSERTION ETONOGESTREL IMPLANT SYSTEM INSERT DRUG IMPLANT DEVICE Oneida Mattson APRN.CNM [address] [place] [place] [address] [address] Referral ID Status Reason Start Date Expiration Date Visits Requested Visits Authorized [id number] Authorized Auto-Generat ed Referral 10/10/2024 10/10/2025 1 1 [facility] for referral (narrative)* Outpatient Procedure (Routine) - New Request Specialty Diagnoses / Procedures Referred By Kya bagley Referred To Contact [facility] Diagnoses Insertion of implantable subdermal contraceptive Procedures NEXPLANON INSERTION ETONOGESTREL IMPLANT SYSTEM INSERT DRUG IMPLANT DEVICE Oneida Mattson APRN.CNM [address] [place] [address] [address] Referral ID Status Reason Start Date Expiration Date Visits Requested Visits Authorized [id number] New Request Auto-Generat ed Referral 10/29/2025 1 1 [facility] for visit Narrative* Diagnostic Procedure Only (Routine) - Closed Specialty Diagnoses / Procedures Referred By Kya bagley Referred To Contact [facility] Diagnoses Obesity affecting in third trimester, unspecified obesity type Encounter for ultrasound to check growth Procedures OBSTETRIC ULTRASOUND WHI US PREG UTERUS AFTER 1ST TRIMEST GESTATION Valentina Yo MD [address] [place] [address] [address] Referral ID Status Reason Start Date Expiration Date V isits Requested Visits Authorized [id number] Closed Auto-Generate d Referral 07/16/2024 07/16/2025 1 1 [facility] Summary Purpose Family History No Family History Records FoundNo Family History Records Found No data available for this section No data available for this section No Family History Records FoundNo Family History Records FoundNo Family History Records FoundNo Family History Records FoundNo Family History Records Found Advance Directives No Advanced Directives Records Found Advance Directive Response Recorded Date/ Time Advance Directives No January 26 017 1:33pm Living Will No March 04, 2022 5:00am Power of Hide Curer No March 04 5:00am Advance Directive Response Recorded Date/ Time Advance Directives No January 26 017 1:33pm Living Will No July 19, 2022 11:10pm Power of Hide Curer No July 11:10pm Advance Directive Response Recorded Date/ Time Advance Directives No January 26 12:33pm Living Will No October 19 8:12pm Power of Hide Curer No October 19, 2022 8:12pm Advance Directive Response Recorded Date/ Time Advance Directives No January 26 12:33pm Living Will No December 28 9:02pm Power of Hide Curer No December 28, 2023 9:02pm Advance Directive Response Recorded Date/ Time Advance Directives No January 26 017 12:33pm Living Will No January 05, 2024 8:50am Power of Hide Curer No January 04 8:50am Advance Directive Response Recorded Date/ Time Advance Directives No January 26 12:33pm Living Will No January 08, 2024 8:55am Power of Hide Curer No January 07 8:55am Advance Directive Response Recorded Date/ Time Advance Directives No January 26 1:33pm Living Will No January 08, 2024 9:55am Power of Hide Curer No January 07 9:55am Chief Complaint and Reason for Visit Chief Complaint N/V/D Chief Complaint CP Chief Complaint CP n/v Chief Complaint CP n/v ABD PAIN Chief Complaint VAG BLEED Chief Complaint VAG BLEED N/V Chief Complaint VAG BLEED N/V PREG Health Concerns Active Problems Noted Date Diagnosed Date [facility] Education - [facility] 01/11/2024 [place] - [place] 01/11/2024 Active Problems Noted Date Diagnosed Date [facility] Education - [facility] 01/11/2024 [place] - [place] 01/11/2024 Active Problems Noted Date Diagnosed Date [facility] Education - [facility] 01/11/2024 [place] - [place] 01/11/2024 Active Problems Noted Date Diagnosed Date [facility] Education - [facility] 01/11/2024 [place] - [place] 01/11/2024 Active Problems Noted Date Diagnosed Date [facility] Education - [facility] 01/11/2024 [place] - [place] 01/11/2024 Active Problems Noted Date Diagnosed Date [facility] Education - [facility] 01/11/2024 [place] - [place] 01/11/2024 Active Problems Noted Date Diagnosed Date [facility] Education - [facility] 01/11/2024 [place] - [place] 01/11/2024 Active Problems Noted Date Diagnosed Date [facility] Education - [facility] 01/11/2024 [place] - [place] 01/11/2024 Additional Source Comments INFORMATION SOURCE (unrecogn ized section and content) DATE CREATED AUTHOR 04/25/2018 [facility] DATE CREATED AUTHOR AUTHOR'S ORGANIZ ATION 11/10/2023 [facility] DATE CREATED AUTHOR AUTHOR'S ORGANIZ ATION 03/24/2024 [facility]) DATE CREATED AUTHOR AUTHOR'S ORGANIZ ATION 04/13/2024 [facility] DATE CREATED AUTHOR AUTHOR'S ORGANIZ ATION 11/14/2024 [facility] DATE CREATED AUTHOR AUTHOR'S ORGANIZ ATION 11/22/2024 [facility] DATE CREATED AUTHOR AUTHOR'S ORGANIZ ATION 11/24/2024 [facility] Goals (unrecognized section and content) Goals may be documented in a n alternate sectionGoals may be documented in an alternate sectionGoals may be documented in an alternate sectionGoals may be documented in an alternate section No data available for this sectionGoals may be documented in an alternate sectionGoals may be documented in an alternate sectionGoals may be documented in an alternate section No data available for this sectionGoals may be documented in an alternate section No data available for this section Care Team (unrecognized sect ion and content) Care Team Personnel Name: DUSTY GALEANO MD Member Role: Primary Care Physician Address: Address: [address] [place] [address]- [place] Name: CLARE LIZ MD Position: ED Physician Member Role: ED Physician Address: Address: [facility] [address] [place] [address]- [place] Name: SHRUTI LEONE DO Position: Resident Member Role: Resident Address: Address: [address] [place] [address]- [place] Name: Sandra Hassan RN Position: AO RN Member Role: ED RN Care Team Related Persons Name: ISHA HEARN Address: Home [address] [place] [address] [place] Name: SUSI HEARN Address: Home [address] [place] [address] Care Teams (unrecognized sec tion and content) Team Status: Active Member Role Status Dates Dr. Karen Griffin MD Family Provider Active Dr. Dusty Galeano MD Primary Care Provider Active Team Status: Inactive Member Role Status Dates Dr. Dusty Galeano MD Primary Care Provider Active Dr. Lukas Peña MD Emergency Provider Active [place] Relationship Specialty Start Date End Date Dusty Galeano [address] [place] [address] PCP - General Pediatrics 01/01/24 Karen Griffin [address] [place] [address] Pediatrics 08/23/17 [place] Relationship Specialty Start Date End Date Karen Griffin [address] [place] [address] PCP - General Pediatrics 03/14/18 12/31/23 Dusty Galeano [address] [place] [address] PCP - General Pediatrics 01/01/24 Karen Griffin [address] [place] [address] Pediatrics 08/23/17 Team Status: Inactive Member Role Status Dates Dr. Dusty Galeano MD Primary Care Provider Active Dr. Lukas Peña MD Attending Provider, Emergency Provi jorge Active Team Status: Inactive Member Role Status Dates Dr. Dusty Galeano MD Primary Care Provider Active Dr. Dale Sesay MD Emergency Provider Active Team Status: Inactive Member Role Status Dates Dr. Dusty Galeano MD Primary Care Provider Active Dr. Sree Pereira DO Emergency Provider Active [place] Relationship Specialty Start Date End Date Dusty Galeano [address] [place] [address] PCP - General Pediatrics 01/01/24 Karen Griffin [address] [place] [address] Pediatrics 08/23/17 [place] Relationship Specialty Start Date End Date Dusty Galeano [address] [place] [address] PCP - General Pediatrics 01/01/24 Karen Griffin [address] [place] [address] Pediatrics 08/23/17 [place] Relationship Specialty Start Date End Date Dusty Galeano [address] [place] [address] PCP - General Pediatrics 01/01/24 Karen Griffin [address] [place] [address] Pediatrics 08/23/17 Team Status: Inactive Member Role Status Dates Dr. Dusty Galeano MD Primary Care Provider Active Dr. Dale Sesay MD Attending Provider, Emergency Pro vider Active Team Status: Inactive Member Role Status Dates Dr. Dusty Galeano MD Primary Care Provider Active Dr. Sree Pereira DO Attending Provider, Frankie mac Active [place] Relationship Specialty Start Date End Date Dusty Galeano [address] [place] [address] PCP - General Pediatrics 01/01/24 Karen Griffin [address] [place] [address] Pediatrics 08/23/17 [place] Relationship Specialty Start Date End Date Dusty Galeano [address] [place] [address] PCP - General Pediatrics 01/01/24 Karen Griffin [address] [place] [address] Pediatrics 08/23/17 [place] Relationship Specialty Start Date End Date Dusty Galeano [address] [place] [address] PCP - General Pediatrics 01/01/24 Karen Griffin [address] [place] [address] Pediatrics 08/23/17 [place] Relationship Specialty Start Date End Date Dusty Galeano [address] [place] [address] PCP - General Pediatrics 01/01/24 Karen Griffin [address] [place] [address] Pediatrics 08/23/17 [place] Relationship Specialty Start Date End Date Dusty Galeano [address] [place] [address] PCP - General Pediatrics 01/01/24 Karen Griffin [address] [place] [address] Pediatrics 08/23/17 [place] Relationship Specialty Start Date End Date Dusty Galeano [address] [place] [address] PCP - General Pediatrics 01/01/24 Karen Griffin [address] [place] [address] Pediatrics 08/23/17 [place] Relationship Specialty Start Date End Date Dusty Galeano [address] [place] [address] PCP - General Pediatrics 01/01/24 Karen Griffin [address] [place] [address] Pediatrics 08/23/17 [place] Relationship Specialty Start Date End Date Dusty Galeano [address] [place] [address] PCP - General Pediatrics 01/01/24 Karen Griffin [address] [place] [address] Pediatrics 08/23/17 [place] Relationship Specialty Start Date End Date Dusty Galeano [address] [place] [address] PCP - General Pediatrics 01/01/24 Karen Griffin [address] [place] [address] Pediatrics 08/23/17 [place] Relationship Specialty Start Date End Date Dusty Galeano [address] [place] [address] PCP - General Pediatrics 01/01/24 Karen Griffin [address] [place] [address] Pediatrics 08/23/17 [place] Relationship Specialty Start Date End Date Dusty Galeano [address] [place] [address] PCP - General Pediatrics 01/01/24 Karen Griffin [address] [place] [address] Pediatrics 08/23/17 [place] Relationship Specialty Start Date End Date Dusty Galeano [address] [place] [address] PCP - General Pediatrics 01/01/24 Karen Griffin [address] [place] [address] Pediatrics 08/23/17 [place] Relationship Specialty Start Date End Date Dusty Galeano [address] [place] [address] PCP - General Pediatrics 01/01/24 Karen Griffin [address] [place] [address] Pediatrics 08/23/17 [place] Relationship Specialty Start Date End Date Dusty Galeano [address] [place] [address] PCP - General Pediatrics 01/01/24 Karen Griffin [address] [place] [address] Pediatrics 08/23/17 [place] Relationship Specialty Start Date End Date Dusty Galeano [address] [place] [address] PCP - General Pediatrics 01/01/24 Karen Griffin [address] [place] [address] Pediatrics 08/23/17 [place] Relationship Specialty Start Date End Date Dusty Galeano [address] [place] [address] PCP - General Pediatrics 01/01/24 Karen Griffin [address] [place] [address] Pediatrics 08/23/17 [place] Relationship Specialty Start Date End Date Dusty Galeano [address] [place] [address] PCP - General Pediatrics 01/01/24 Karen Griffin [address] [place] [address] Pediatrics 08/23/17 [place] Relationship Specialty Start Date End Date Dusty Galeano [address] [place] [address] PCP - General Pediatrics 01/01/24 Karen Griffin [address] [place] [address] Pediatrics 08/23/17 [place] Relationship Specialty Start Date End Date Dusty Galeano [address] [place] [address] PCP - General Pediatrics 01/01/24 aKren Griffin [address] [place] [address] Pediatrics 08/23/17 [place] Relationship Specialty Start Date End Date Dusty Galeano [address] [place] [address] PCP - General Pediatrics 01/01/24 aKren Griffin [address] [place] [address] [phone] (work) Pediatrics 08/23/17 Source Comments (unrecognize d section and content) In the event this informatio n is protected by the Federal Confidentiality of Alcohol and Drug Abuse Patient Records regulations: The Federal rules restrict any use of the information to criminally investigate or prosecute any alcohol or drug abuse patient.[facility] HealthcareIn the event this information is protected by the Federal Confidentiality of Alcohol and Drug Abuse Patient Records regulations: The Federal rules restrict any use of the information to criminally investigate or prosecute any alcohol or drug abuse patient.[facility] HealthcareIn the event this information is protected by the Federal Confidentiality of Alcohol and Drug Abuse Patient Records regulations: The Federal rules restrict any use of the information to criminally investigate or prosecute any alcohol or drug abuse patient.[facility] HealthcareIn the event this information is protected by the Federal Confidentiality of Alcohol and Drug Abuse Patient Records regulations: The Federal rules restrict any use of the information to criminally investigate or prosecute any alcohol or drug abuse patient.[facility] HealthcareIn the event this information is protected by the Federal Confidentiality of Alcohol and Drug Abuse Patient Records regulations: The Federal rules restrict any use of the information to criminally investigate or prosecute any alcohol or drug abuse patient.[facility] HealthcareIn the event this information is protected by the Federal Confidentiality of Alcohol and Drug Abuse Patient Records regulations: The Federal rules restrict any use of the information to criminally investigate or prosecute any alcohol or drug abuse patient.[facility] HealthcareIn the event this information is protected by the Federal Confidentiality of Alcohol and Drug Abuse Patient Records regulations: The Federal rules restrict any use of the information to criminally investigate or prosecute any alcohol or drug abuse patient.[facility] HealthcareIn the event this information is protected by the Federal Confidentiality of Alcohol and Drug Abuse Patient Records regulations: The Federal rules restrict any use of the information to criminally investigate or prosecute any alcohol or drug abuse patient.[facility] HealthcareIn the event this information is protected by the Federal Confidentiality of Alcohol and Drug Abuse Patient Records regulations: The Federal rules restrict any use of the information to criminally investigate or prosecute any alcohol or drug abuse patient.[facility] HealthcareIn the event this information is protected by the Federal Confidentiality of Alcohol and Drug Abuse Patient Records regulations: The Federal rules restrict any use of the information to criminally investigate or prosecute any alcohol or drug abuse patient.[facility] HealthcareIn the event this information is protected by the Federal Confidentiality of Alcohol and Drug Abuse Patient Records regulations: The Federal rules restrict any use of the information to criminally investigate or prosecute any alcohol or drug abuse patient.[facility] HealthcareIn the event this information is protected by the Federal Confidentiality of Alcohol and Drug Abuse Patient Records regulations: The Federal rules restrict any use of the information to criminally investigate or prosecute any alcohol or drug abuse patient.[facility] HealthcareIn the event this information is protected by the Federal Confidentiality of Alcohol and Drug Abuse Patient Records regulations: The Federal rules restrict any use of the information to criminally investigate or prosecute any alcohol or drug abuse patient.[facility] HealthcareIn the event this information is protected by the Federal Confidentiality of Alcohol and Drug Abuse Patient Records regulations: The Federal rules restrict any use of the information to criminally investigate or prosecute any alcohol or drug abuse patient.[facility] HealthcareIn the event this information is protected by the Federal Confidentiality of Alcohol and Drug Abuse Patient Records regulations: The Federal rules restrict any use of the information to criminally investigate or prosecute any alcohol or drug abuse patient.[facility] HealthcareIn the event this information is protected by the Federal Confidentiality of Alcohol and Drug Abuse Patient Records regulations: The Federal rules restrict any use of the information to criminally investigate or prosecute any alcohol or drug abuse patient.[facility] HealthcareIn the event this information is protected by the Federal Confidentiality of Alcohol and Drug Abuse Patient Records regulations: The Federal rules restrict any use of the information to criminally investigate or prosecute any alcohol or drug abuse patient.[facility] HealthcareIn the event this information is protected by the Federal Confidentiality of Alcohol and Drug Abuse Patient Records regulations: The Federal rules restrict any use of the information to criminally investigate or prosecute any alcohol or drug abuse patient.[facility] HealthcareIn the event this information is protected by the Federal Confidentiality of Alcohol and Drug Abuse Patient Records regulations: The Federal rules restrict any use of the information to criminally investigate or prosecute any alcohol or drug abuse patient.[facility] HealthcareIn the event this information is protected by the Federal Confidentiality of Alcohol and Drug Abuse Patient Records regulations: The Federal rules restrict any use of the information to criminally investigate or prosecute any alcohol or drug abuse patient.[facility] HealthcareIn the event this information is protected by the Federal Confidentiality of Alcohol and Drug Abuse Patient Records regulations: The Federal rules restrict any use of the information to criminally investigate or prosecute any alcohol or drug abuse patient.[facility] HealthcareIn the event this information is protected by the Federal Confidentiality of Alcohol and Drug Abuse Patient Records regulations: The Federal rules restrict any use of the information to criminally investigate or prosecute any alcohol or drug abuse patient.[facility] HealthcareIn the event this information is protected by the Federal Confidentiality of Alcohol and Drug Abuse Patient Records regulations: The Federal rules restrict any use of the information to criminally investigate or prosecute any alcohol or drug abuse patient.[facility] HealthcareIn the event this information is protected by the Federal Confidentiality of Alcohol and Drug Abuse Patient Records regulations: The Federal rules restrict any use of the information to criminally investigate or prosecute any alcohol or drug abuse patient.[facility] HealthcareIn the event this information is protected by the Federal Confidentiality of Alcohol and Drug Abuse Patient Records regulations: The Federal rules restrict any use of the information to criminally investigate or prosecute any alcohol or drug abuse patient.[facility] HealthcareIn the event this information is protected by the Federal Confidentiality of Alcohol and Drug Abuse Patient Records regulations: The Federal rules restrict any use of the information to criminally investigate or prosecute any alcohol or drug abuse patient.[facility] HealthcareIn the event this information is protected by the Federal Confidentiality of Alcohol and Drug Abuse Patient Records regulations: The Federal rules restrict any use of the information to criminally investigate or prosecute any alcohol or drug abuse patient.[facility] HealthcareIn the event this information is protected by the Federal Confidentiality of Alcohol and Drug Abuse Patient Records regulations: The Federal rules restrict any use of the information to criminally investigate or prosecute any alcohol or drug abuse patient.[facility] HealthcareIn the event this information is protected by the Federal Confidentiality of Alcohol and Drug Abuse Patient Records regulations: The Federal rules restrict any use of the information to criminally investigate or prosecute any alcohol or drug abuse patient.[facility] HealthcareIn the event this information is protected by the Federal Confidentiality of Alcohol and Drug Abuse Patient Records regulations: The Federal rules restrict any use of the information to criminally investigate or prosecute any alcohol or drug abuse patient.[facility] HealthcareIn the event this information is protected by the Federal Confidentiality of Alcohol and Drug Abuse Patient Records regulations: The Federal rules restrict any use of the information to criminally investigate or prosecute any alcohol or drug abuse patient.[facility] HealthcareIn the event this information is protected by the Federal Confidentiality of Alcohol and Drug Abuse Patient Records regulations: The Federal rules restrict any use of the information to criminally investigate or prosecute any alcohol or drug abuse patient.[facility] HealthcareIn the event this information is protected by the Federal Confidentiality of Alcohol and Drug Abuse Patient Records regulations: The Federal rules restrict any use of the information to criminally investigate or prosecute any alcohol or drug abuse patient.[facility] HealthcareIn the event this information is protected by the Federal Confidentiality of Alcohol and Drug Abuse Patient Records regulations: The Federal rules restrict any use of the information to criminally investigate or prosecute any alcohol or drug abuse patient.[facility] HealthcareIn the event this information is protected by the Federal Confidentiality of Alcohol and Drug Abuse Patient Records regulations: The Federal rules restrict any use of the information to criminally investigate or prosecute any alcohol or drug abuse patient.[facility] HealthcareIn the event this information is protected by the Federal Confidentiality of Alcohol and Drug Abuse Patient Records regulations: The Federal rules restrict any use of the information to criminally investigate or prosecute any alcohol or drug abuse patient.[facility] HealthcareIn the event this information is protected by the Federal Confidentiality of Alcohol and Drug Abuse Patient Records regulations: The Federal rules restrict any use of the information to criminally investigate or prosecute any alcohol or drug abuse patient.[facility] HealthcareIn the event this information is protected by the Federal Confidentiality of Alcohol and Drug Abuse Patient Records regulations: The Federal rules restrict any use of the information to criminally investigate or prosecute any alcohol or drug abuse patient.[facility] HealthcareIn the event this information is protected by the Federal Confidentiality of Alcohol and Drug Abuse Patient Records regulations: The Federal rules restrict any use of the information to criminally investigate or prosecute any alcohol or drug abuse patient.[facility] HealthcareIn the event this information is protected by the Federal Confidentiality of Alcohol and Drug Abuse Patient Records regulations: The Federal rules restrict any use of the information to criminally investigate or prosecute any alcohol or drug abuse patient.[facility] HealthcareIn the event this information is protected by the Federal Confidentiality of Alcohol and Drug Abuse Patient Records regulations: The Federal rules restrict any use of the information to criminally investigate or prosecute any alcohol or drug abuse patient.[facility] Reason for Visit (unrecogniz ed section and content) Reason Comments Early OB Bleeding Reason Comments ER F/U Reason Comments Initial OB Visit Reason Comments Nausea & Vomiting Reason Comments Results Reason Comments ED Follow-up N/V Reason Comments US Specialty Diagnoses / Procedures Referred By Kya t Referred To Contact [facility] Diagnoses Encounter for supervision of high risk in first trimester, antepartum 8 weeks gestation of with uncertain dates in first trimester Procedures NUCHAL TRANSLUCENCY WHI US NUCHAL TRANSLUCENCY 1ST GESTATION Evie Montes APRN.[employer]IAGE REGISTERED NURSE [address] [place] [address] [facility] [address] [place] [address] Referral ID Status Reason Start Date Expiration Date V isits Requested Visits Authorized [id number] Closed Auto-Generate d Referral 01/15/2024 01/14/2025 1 1 Reason Onset Date Comments Care 02/15/2024 Reason Comments Covid Positive Reason Comments Lab Orders Specialty Diagnoses / Procedures Referred By Contac t Referred To Contact [facility] Diagnoses 18 weeks gestation of Procedures OBSTETRIC ULTRASOUND WHI US PREG UTERUS AFTER 1ST TRIMEST GESTATION Jocleynn Araiza MD [address] [place] [address] [address] Referral ID Status Reason Start Date Expiration Date V isits Requested Visits Authorized [id number] Closed Auto-Generate d Referral 03/25/2024 03/25/2025 1 1 Reason Comments Cough Fever, chill, SOB, s ore throat x 2 days Reason Onset Date Comments Care 05/03/2024 Reason Comments Refill Request Reason Onset Date Comments Care 05/31/2024 Reason Onset Date Comments Care 06/14/2024 Reason Onset Date Comments Care 06/28/2024 Specialty Diagnoses / Procedures Referred By Contac t Referred To Contact [facility] Diagnoses Encounter for supervision of high risk in third trimester, antepartum 27 weeks gestation of Obesity affecting in third trimester, unspecified obesity type Procedures OBSTETRIC ULTRASOUND WHI US PREG UTERUS AFTER 1ST TRIMEST GESTATION Evie Montes APRN.TRIAGE REGISTERED NURSE [address] 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 Reason Comments Question (OB Question) Reason Onset Date Comments Care 08/26/2024 Reason Onset Date Comments Care 08/28/2024 Reason Comments Breast Pump Reason Comments Ob Delivery Note Reason Comments Early Reason Comments Routine Reason Comments Nexplanon Insertion Specialty Diagnoses / Procedures Referred By Kya bagley Referred To Contact [facility] Diagnoses care and examination Encounter for routine examination for contraception Procedures NEXPLANON INSERTION ETONOGESTREL IMPLANT SYSTEM INSERT DRUG IMPLANT DEVICE Oneida Mattson APRN.[facility] [address] [place] [address] [facility] [address] [place] [address] Referral ID Status Reason Start Date Expiration Date V isits Requested Visits Authorized [id number] Closed Auto-Generate d Referral 10/10/2024 10/10/2025 1 1 FOR RECORDS PERTAINING TO PATIENTS WHO ARE [...] BE BASED ON THE PRIMARY CLINICAL RECORDS. [facility] [employer] provides no warranty or guarantee of the accuracy or completeness of information in this document.
--- NOTE | 2025-04-08 22:30 | EDS_ITS ---
HPI History of Present Illness Chief Complaint: Cold Sx Informant: patient Narrative Narrative: Patient is a 20-year-old female with no significant past medical history. She states she has had 3 to 5 days of increasing nasal congestion left ear pain sore throat and cough. She states that her 2 children have been sick with similar symptoms. She states that with increasing left ear pain she has concerns now has an ear infection and therefore comes in for evaluation. [facility] Medical History (Updated 04/08/25 @ 22:[address] Kostas Mart, DO) Care and examination of lactating mother (spontaneous vaginal delivery) Depression Chlamydia infection affecting Cyst of right ovary Home Medications ?Medication ?Instructions ?Recorded ?Last Taken ?Type acetaminophen 500 mg tablet 1,000 mg (2 x 500 mg) PO Q 6H PRN 08/30/24 Unknown Rx PRN Pain 1-10 Or Fever #0 tabs amoxicillin 875 mg-potassium 1 tab PO BID 10 days #20 tabs 04/08/25 Unknown Rx clavulanate 125 mg tablet azelastine 137 mcg (0.1 %) nasal 2 spray intranasal BI D #30 mL 04/08/25 Unknown Rx spray prednisone 20 mg tablet 40 mg (2 x 20 mg) PO DAILY 7 days 04/08/25 Unknown Rx #14 tabs Allergy/AdvReac Type Severity Reaction Status Date / Time morphine AdvReac Vomiting Verified 04/08/25 21:34 Surgical History History of cholecystectomy Social History Smoking Status: Never smoker [facility] ED Constitutional Constitutional ED: Denies chills or fever(s) ENT ENT ED: Reports ear pain, rhinorrhea and sore throat Cardiovascular Cardiovascular: Denies chest pain Respiratory/Chest Respiratory/Chest: Reports cough; Denies dyspnea Gastrointestinal Gastrointestinal: Denies abdominal pain, diarrhea, nausea or vomiting Genitourinary Genitourinary ED: Denies dysuria Musculoskeletal Musculoskeletal: Denies myalgias Integumentary Denies rash Neurologic Neurologic: Reports headache(s) Hematologic/Lymphatic Hematologic/Lymphatic: Denies easy bleeding or easy bruising Allergic/Immunologic Allergic/Immunologic ED: Denies mouth swelling or tongue swelling EXAM Physical Exam Const Vital Signs: 04/08/25 21:35 04/08/25 21:50 04/08/25 22:35 Temperature 98.4 F Temperature Source Oral Pulse Rate 75 78 Respiratory Rate 18 18 Respiratory Effort Normal Non-Labored Respiratory Pattern Normal Blood Pressure 141/75 H Blood Pressure Mean 97 Pulse Ox 97 Oxygen Delivery Method Room Air 04/08/25 22:41 Temperature 98.2 F Temperature Source Pulse Rate 88 Respiratory Rate 18 Respiratory Effort Respiratory Pattern Blood Pressure 128/86 H Blood Pressure Mean 100 Pulse Ox 99 Oxygen Delivery Method Positive well nourished and well developed General Appearance ED: well developed; Negative for pallor HEENT HEENT Narrative: Nasal mucosa is hyperemic and boggy with enlarged inferior nasal turbinates left greater than right Right canal and TM are normal Left canal is normal but TM is retracted however there are no secondary findings of infection Posterior pharynx displays cobblestoning consistent with sinus drainage No tongue or lip swelling no oral lesions no airway edema or compromise Eyes PERRL and EOMs intact bilaterally General Eye ED: Negative for scleral icterus Neck supple Neck Narrative: No nuchal rigidity or meningeal signs noted Positive anterior cervical of adenopathy present Resp normal respiratory effort Resp Narrative: Breath sounds are diminished throughout with diffuse expiratory wheeze No signs of respiratory distress Cardio regular rate and regular rhythm Extremity normal to inspection Neuro oriented x3, CN's II-XII intact bilaterally and no sensory deficits noted Sensorium / Orientation: alert Motor Exam: strength 5/5 throughout Psych mental status grossly normal Skin no rashes or lesions noted and no wounds General Skin Exam: Negative for jaundice or pallor MDM MDM MDM Narrative Medical decision making narrative: Patient arrived to the ER with stable vitals. She reported sick contacts at home with similar symptoms. Her history and physical exam is most consistent with a viral URI. With left ear pain however there is concern for otitis media. Physical exam shows retraction of the eardrum but not secondary findings of infection. Based on her only 3 to 5 days of symptoms she does not classify as acute bacterial sinusitis either. Therefore at this time I do not feel there is need for laboratory studies or imaging. Patient will be given symptomatic care such as steroid and nasal sprays and breathing treatments to help with her symptoms but as she is not in respiratory distress or require supplemental oxygen she is otherwise safe for discharge. History & Record Review Discussion w/independent historian: Patient Discharge Plan Triage Chief Complaint: Cold Sx ED Provider: Kostas Mart Dx/Rx/DC Orders Clinical Impression: Viral upper respiratory tract infection with cough, Otalgia of left ear Instructions: ED Earache Without Infection (Adult), ED URI, Viral W/ Wheezing (Adult) Prescriptions: New prednisone 20 mg tablet 40 mg PO DAILY 7 Days Qty: 14 0RF azelastine 137 mcg (0.1 %) spray,non-aerosol 2 spray intranasal BID Qty: 30 0RF Rx Instructions: administer into each nostril amoxicillin-pot clavulanate 875-125 mg tablet 1 tab PO BID 10 Days Qty: 20 0RF No Action acetaminophen 500 mg Tablet 1,000 mg PO Q6H PRN PRN (Reason: Pain 1-10 Or Fever) Qty: 0 0RF Primary Care Provider: Care Physician,No Primary Referrals: Jean Wood MD [Med Staff - Active Staff] - Care Physician,No Primary [Primary Care Provider] - Activity Restrictions/Additional Instructions: Your history and exam is consistent with a viral upper respiratory tract infection which will last on average 18 to 21 days. Your ear shows a great deal of pressure which is the cause of your pain but no secondary infection at this time. Please use the inhaler nasal spray and steroid to help reduce/control symptoms. If there is no improvement or you develop a fever then you may fill the antibiotic that was written in the ER. Return if you have any further concerns Print Language: Sinhala Disposition Disposition: Home, Self Care
[2025-04-08] MEDS: Ipratropium/Albuterol Sulfate 3 ML AMPUL.NEB INHALATION (22:33)
[2025-04-08] MEDS: Albuterol Sulfate 8 gm Inhaler (60 puffs) 2 PUFF INHALATION (22:34)
[2025-04-08 22:35] VITALS: PULSE 78; RESP 18
[2025-04-08] MEDS: dexAMETHasone 10 MG/ML Vial PO.IVFORM (22:40)
[2025-04-08 22:41] VITALS: BP 128/86; PULSE 88; RESP 18; TEMP 36.8; O2SAT 99
== END 2025-04-08 22:50 | disposition home or self-care (01) ==
PROVIDERS: Emergency Provider Emergency Medicine; Visit Provider Emergency Medicine
DX: J06.9 Acute upper respiratory infection, unspecified (principal); H92.02 Otalgia, left ear; R05.9 Cough, unspecified
CPT/HCPCS: 94640; 99283